=== PATIENT | male | born 1955 | race Caucasian/White ===

== ENCOUNTER 2020-10-16 12:23 | Emergency (ER) | payer MEDICARE, SELFPAY ==
[2020-10-16 12:47] VITALS: BP 155/70; PULSE 87; RESP 20; TEMP 36.3; O2SAT 97
--- NOTE | 2020-10-16 12:57 | ED.SKABFB ---
HPI - Skin/Abscess/Foreign Bdy General Chief complaint: Skin/Abscess/Foreign Body Stated complaint: left cut on ankle Time Seen by Provider: 10/16/20 12:57 Source: patient and RN notes reviewed Mode of arrival: ambulatory Limitations: no limitations History of Present Illness HPI narrative: 65-year-old male presents to [facility] with complaints of a skin tear left medial lower leg since Monday, 2 days ago. Patient reports that his skin constraint itchy and started scratching when he scratched off a piece of skin. Area did not bleed. States he has a history of the skin tears and normally put Silvadene on it. States he was out of Silvadene. [facility] History of a kidney transplant, high blood pressure, diabetes and a pacemaker. Related Data Home Medications Medication Instructions Recorded Confirmed insulin aspart U-100 [Novolog 10/16/20 U-100 Insulin aspart] lisinopril 40 mg PO DAILY 10/16/20 10/16/20 melatonin 10 mg PO HS PRN 10/16/20 10/16/20 metoprolol succinate 25 mg PO DAILY 10/16/20 10/16/20 mycophenolate sodium [Myfortic] PO 10/16/20 omeprazole magnesium [Acid [employer] 20 mg PO DAILY 10/16/20 10/16/20 (omeprazole)] prednisone 5 mg PO DAILY 10/16/20 10/16/20 rivaroxaban [Xarelto] 15 mg PO DAILY 10/16/20 10/16/20 simvastatin [Zocor] 10 mg PO DAILY 10/16/20 10/16/20 sulfamethoxazole-trimethoprim 1 tablet PO Q12H 10/16/20 10/16/20 [Bactrim DS] tacrolimus [Prograf] 1 mg PO Q12H 10/16/20 10/16/20 tamsulosin 0.4 mg PO DAILY 10/16/20 10/16/20 vitamin B complex [B Complex] 1 tablet PO DAILY 10/16/20 10/16/20 Allergies Allergy/AdvReac Type Severity Reaction Status Date / Time morphine Allergy Unknown Itching Verified 04/29/20 09:39 Review of Systems Review of Systems: Narrative: CONSTITUTIONAL: Denies fever, chills, or sweats. EYES: Denies visual changes, redness, or discharge. ENT: Denies rhinorrhea, congestion, sore throat, or otalgia. CARDIOVASCULAR: Denies chest pain, palpitations, or edema. RESPIRATORY: Denies cough or dyspnea. GASTROINTESTINAL: Denies abdominal pain, nausea, vomiting, or diarrhea. GENITOURINARY: Denies dysuria or hematuria. SKIN: Denies rash or itching. Skin tear left lower medial aspect without redness or inflammation MUSCULOSKELETAL: Denies back pain, joint pain, or myalgia. NEUROLOGIC: Denies headache, numbness, or weakness. PSYCHIATRIC: Denies anxiety or depression. All other systems reviewed are negative, except as documented in HPI. 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 There is no relevant family history pertinent to the patient complaint. Exam Narrative: Exam Narrative: GENERAL: This is a well-nourished, well-developed patient, in no apparent distress. HEAD: normocephalic, atraumatic. EYES: PERRL. Sclera clear/white. Vision is grossly intact. NECK: Neck supple, non-tender without lymphadenopathy, masses or thyromegaly. CARDIOVASCULAR: Regular rate and rhythm without murmurs, gallops, or rubs. RESPIRATORY: Clear to auscultation. Breath sounds equal bilaterally. No wheezes, rales, or rhonchi. GASTROINTESTINAL: Abdomen soft, non-tender, nondistended. Bowel sounds are active. No hepato-
[2020-10-16 13:00] VITALS: BP 155/70; PULSE 87; RESP 20; TEMP 36.3; O2SAT 97
== END 2020-10-16 13:36 | disposition home or self-care (01) ==
PROVIDERS: Emergency Provider Nurse Practitioner; PCP Internal Medicine
DX: S81.812A Laceration without foreign body, left lower leg, initial encounter (principal); X58.XXXA Exposure to other specified factors, initial encounter; E10.311 Type 1 diabetes mellitus with unspecified diabetic retinopathy with macular edema; Z94.0 Kidney transplant status
CPT/HCPCS: 99213; G0463

== ENCOUNTER 2025-05-06 16:48 | Observation (INO) | payer MEDICARE, SELFPAY ==
--- OUTSIDE RECORDS SUMMARY | 2024-05-10 05:00 | XMS_ITS | Encounter Summary ---
Author Name [facility] [place] [facility] [place] Address [address] [place] [address] Care Team Providers Care Center Manager Name Role Phone HELEN MATTHEWS Primary Care Provider Unavailabl e Insurance Providers: All historical and current Section Date Range: From patient's date of to the date document was created. This section includes the names of all active insurance providers for the patient. Insurance Provider Type of Coverage Plan Name Start of Policy Coverage End of Policy Coverage Group Number Member ID Insurance Provider's Telephone Number Policy Bullard's Name Patient's Relationship to Policy Bullard MEDICARE (WNR) MEDICARE (M) PART A Feb 09, 2019 PART A [id number] ANA GANNON EPH PATIENT MEDICARE (WNR) MEDICARE (M) PART B Feb 09, 2019 PART B [id number] ANA GANNON EPH PATIENT MEDICARE (WNR) MEDICARE (M) PART A Feb 09, 2019 PART A [id number] ANA GANNON EPH PATIENT MEDICARE (WNR) MEDICARE (M) PART B Feb 09, 2019 PART B [id number] ANA GANNON PATIENT MEDICARE (WNR) MEDICARE (M) PART A Feb 09, 2019 PART A [id number] ANA GANNON PATIENT MEDICARE (WNR) MEDICARE (M) PART B Feb 09, 2019 PART B [id number] [phone] ANA GANNON PATIENT MEDICARE PART D (WNR) MEDICARE (M) PART D Sep 11, 2019 PART D [id number] [phone] ANA GANNON PATIENT Selected Encounter This section includes the information on record at [place] for the Encounter. 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 This section includes future appointments and future orders which are active, pending or scheduled. Future Appointments This section includes appointments that were scheduled to occur 6 months from the date of the Encounter, up to a maximum of 20 appointments. The data comes from all [place] treatment facilities. Appointment Date/Time Appointment Type Appointme nt Facility Name May 21, 2024 10:00 AM AMBULATORY - MEDICINE [facility] Jun 13, 2024 09:00 AM AMBULATORY - MEDICINE [facility] Jun 14, 2024 09:30 AM AMBULATORY - REHAB MEDICIN E [facility] Jun 18, 2024 10:00 AM AMBULATORY - MEDICINE [facility] Jun 27, 2024 02:30 PM AMBULATORY - MEDICINE [facility] Jul 05, 2024 11:15 AM AMBULATORY - MEDICINE . [facility] Jul 18, 2024 09:15 AM AMBULATORY - NONE [facility] Jul 18, 2024 09:45 AM AMBULATORY - MEDICINE [facility] Jul 19, 2024 09:00 AM AMBULATORY - MEDICINE [facility] Aug 21, 2024 09:00 AM AMBULATORY - MEDICINE [facility] Aug 30, 2024 09:00 AM AMBULATORY - MEDICINE [facility] Sep 05, 2024 09:00 AM AMBULATORY - MEDICINE [facility] Sep 10, 2024 11:00 AM AMBULATORY - NONE [facility] Sep 18, 2024 02:00 PM AMBULATORY - MEDICINE [facility] Sep 19, 2024 09:00 AM AMBULATORY - SURGERY [facility] Sep 25, 2024 09:45 AM AMBULATORY - MEDICINE [facility] Oct 03, 2024 09:15 AM AMBULATORY - MEDICINE [facility] Oct 03, 2024 09:30 AM AMBULATORY - MEDICINE [facility] Oct 04, 2024 06:45 [facility] 04, [facility] 07:00 AM AMBULATORY - MEDICINE [facility] Lab Results: +/- 30 days of the encounter This section includes the Chemistry and Hematology Lab Results on record with [place] for the patient. Radiology Reports and Pathology Reports are provided separately, in subsequent sections. Lab Results This section contains the Chemistry/Hematology Results that were resulted 30 days before or 30 daysafter the date of the Encounter. Date/Time Source Result Type Result - Unit Interpretation Reference Range Specimen Type Comment May 22, 2024 08:41 AM [facility] RENAL PANEL PLASMA Specimen Type: PLASMA Comment: No hemolysis noted. Ordering Provider: FRANCISCO DAILY Report Released Date/Time: Sep 01, 2023 11:30 AM Reporting Lab: [facility] [address] [address] Performing Lab: [address] [address] CREATININE 1.88 mg/dL H 0.7-1.3 UREA NITROGEN 33.2 mg/dL H 9.0-25.0 GLUCOSE 114 mg/dL H 72-99 SODIUM 139 meq/L 136-145 POTASSIUM 4.6 meq/L 3.5-5 CHLORIDE 109 meq/L H 98-107 CARBON DIOXIDE 22 meq/L 22-31 CALCIUM 9.5 mg/dL 8.4-10.4 PHOSPHOROUS 3.3 mg/dL 2.3-4.7 ALBUMIN 3.6 g/dL 3.4-5 EGFR (CKD-EPI 2020) 38.0 >60 May 22, 2024 08:41 AM [facility] TACROLIMUS (STL-PB) BLOOD Specimen Type: BLOO D No comment entered. Ordering Provider: FRANCISCO DAILY Report Released Date/Time: Sep 01, 2023 11:30 AM Reporting Lab: [address] [address] Performing Lab: [address] [address] TACROLIMUS (STL-PB) 6.7 ng/mL May 22, 2024 08:41 AM [facility] URINALYSIS (L-PB) URINE Specimen Type: URIN E Comment: High concentrations of glucose and protein affect specific gravity. Therefore, specific gravity is corrected using the concentrations of glucose and protein obtained from test strip measurement. Very high concentrations of glucose (>1000 mg/dL) or protein (>600 mg/dL) in the urine may affect the reliability of the specific gravity results. Clinical correlation is suggested. Ordering Provider: FRANCISCO DAILY Report Released Date/Time: Sep 01, 2023 11:30 AM Reporting Lab: [address] [address] Performing Lab: [address] [address] URINE COLOR Light-Yellow Yellow U.BILIRUBIN Negative mg/dL Negative U.PH 6.0 5.0-8.0 APPEARANCE Clear Clear U.NITRITE Negative mg/dL Negative URN.GLUCOSE > mg/dL H Negative URN.PROTEIN Negative mg/dL Negative-20 URN.UROBILINOGEN Normal mg/dL Normal URN.BLOOD Negative mg/dL Negative-Trace URN.KETONES Trace mg/dL Negative-Trace URN.LEUK.EST. Negative mg/dL Negative-Tr malu URN.SPECIFIC GRAVITY 1.018 1.005-1.029 May 22, 2024 08:41 AM [facility] CBC BLOOD Specimen Type: BLOOD No comment entered. Ordering Provider: FRANCISCO DAILY Report Released Date/Time: Sep 01, 2023 11:30 AM Reporting Lab: [facility] [address] [address] Performing Lab: [address] [address] WBC 6.8 10*3/uL 3.6-11.2 RBC 4.05 10*6/uL L 4.10-5.70 HGB 12.6 g/dL L 13.1-16.8 HCT 36.2 L 38.2-48.4 MCV 89.4 fL 80.0-100.0 MCH 31.1 pg 27.0-34.0 MCHC 34.8 g/dL 33.0-36.0 PLT 171 10*3/uL 150-400 MPV 10.8 fL 7.5-11.2 RDW 12.4 11.8-15.1 LYMPHOCYTES, AUTO % 22 MONOCYTES, AUTO % 11 NEUTROPHILS, AUTO % 60 EOSINOPHILS, AUTO % 7 BASOPHILS, AUTO % 1 LYMPHOCYTES, ABSOLUTE 1.46 10*3/uL 0.77- 4.50 MONOCYTES, ABSOLUTE 0.71 10*3/uL 0.19-0. 80 NEUTROPHILS, ABSOLUTE 4.06 10*3/uL 2.10- 8.00 EOSINOPHILS, ABSOLUTE 0.44 10*3/uL 0.00- 0.60 BASOPHILS, ABSOLUTE 0.05 10*3/uL 0.00-0. 20 Apr 23, 2024 02:04 PM [facility] C DIFF EPI PCR PNL FECES Specimen Type: FECES Comment: Qualitative real-time PCR test for rapid detection of toxin B gene sequences and for presumptive identification of 027/NAP1/BI strains of toxigenic Clostridium difficile. A negative result does not preclude infection with the agent(s) tested and should not be used as the sole basis for treatment or other patient management decisions. If negative, but symptoms persist, consider re-testing. A positive test does not necessarily indicate the presence of viable organisms, or active toxin production. All results must be combined with clinical observations, patient history, and epidemiological information for final interpretation. Ordering Provider: OLVIN JUAREZ Report Released Date/Time: Apr 18, 2024 07:01 AM Reporting Lab: [facility] [address] [address] Performing Lab: [address] [address] C DIFF TOXIN EIA (STL) Test not indicated 027-NAP1-B1 STRAIN OF C.DIFF Presumptive Negativ e Presumptive Negative C DIFF EPI PCR NEGATIVE Negative Apr 18, 2024 09:32 AM [facility] GLUCOSE,BLOOD-poct (STL) BLOOD Specimen Type: BLOOD Comment: Test Performed by: [id number] Meter #: [id number] Ordering Provider: HELEN MATTHEWS Report Released Date/Time: Apr 18, 2024 04:36 PM Reporting Lab: [place] [id number] [facility] [address] Performing Lab: [address] [address] GLUCOSE,BLOOD-poct (STL) 261 mg/dL H 72-99 Apr 12, 2024 08:28 AM [facility] TACROLIMUS (STL-PB) BLOOD Specimen Type: BLOO D No comment entered. Ordering Provider: FRANCISCO DAILY Report Released Date/Time: Sep 01, 2023 11:23 AM Reporting Lab: [facility] [address] [address] Performing Lab: [facility] [address] [place] [phone] TACROLIMUS (STL-PB) 3.4 ng/mL Apr 12, 2024 08:28 AM [facility] RENAL PANEL PLASMA Specimen Type: PLASM A Comment: No hemolysis noted. Ordering Provider: FRANCISCO DAILY Report Released Date/Time: Sep 01, 2023 11:23 AM Reporting Lab: [address] [address] Performing Lab: [address] [address] CREATININE 1.87 mg/dL H 0.7-1.3 UREA NITROGEN 35.4 mg/dL H 9.0-25.0 GLUCOSE 157 mg/dL H 72-99 SODIUM 138 meq/L 136-145 POTASSIUM 4.6 meq/L 3.5-5 CHLORIDE 110 meq/L H 98-107 CARBON DIOXIDE 19 meq/L L 22-31 CALCIUM 8.8 mg/dL 8.4-10.4 PHOSPHOROUS 3.2 mg/dL 2.3-4.7 ALBUMIN 3.4 g/dL 3.4-5 EGFR (CKD-EPI 2020) 38.2 >60 Apr 12, 2024 08:28 AM [facility] URINALYSIS (STL-PB) URINE Specimen Type: URIN E No comment entered. Ordering Provider: FRANCISCO DAILY Report Released Date/Time: Sep 01, 2023 11:23 AM Reporting Lab: [address] [address] Performing Lab: [address] [address] URINE COLOR Light-Yellow Yellow U.BILIRUBIN Negative mg/dL Negative U.PH 6.0 5.0-8.0 APPEARANCE Clear Clear U.NITRITE Negative mg/dL Negative URN.GLUCOSE Normal mg/dL Negative URN.PROTEIN Negative mg/dL Negative-20 URN.UROBILINOGEN Normal mg/dL Normal URN.BLOOD Negative mg/dL Negative-Trace URN.KETONES Negative mg/dL Negative-Trac e URN.LEUK.EST. Negative mg/dL Negative-Tr malu URN.SPECIFIC GRAVITY 1.013 1.005-1.029 Apr 12, 2024 08:[address] [facility] CBC BLOOD Specimen Type: BLOOD No comment entered. Ordering Provider: FRANCISCO DAILY Report Released Date/Time: Sep 01, 2023 11:23 AM Reporting Lab: [facility] [address] [phone] Performing Lab: [facility] [address] [address] WBC 6.1 10*3/uL 3.6-11.2 RBC 4.04 10*6/uL L 4.10-5.70 HGB 12.3 g/dL L 13.1-16.8 HCT 37.2 L 38.2-48.4 MCV 92.1 fL 80.0-100.0 MCH 30.4 pg 27.0-34.0 MCHC 33.1 g/dL 33.0-36.0 PLT 158 10*3/uL 150-400 MPV 10.3 fL 7.5-11.2 RDW 13.1 11.8-15.1 LYMPHOCYTES, AUTO % 20 MONOCYTES, AUTO % 10 NEUTROPHILS, AUTO % 64 EOSINOPHILS, AUTO % 5 BASOPHILS, AUTO % 1 LYMPHOCYTES, ABSOLUTE 1.20 10*3/uL 0.77- 4.50 MONOCYTES, ABSOLUTE 0.59 10*3/uL 0.19-0. 80 NEUTROPHILS, ABSOLUTE 3.90 10*3/uL 2.10- 8.00 EOSINOPHILS, ABSOLUTE 0.33 10*3/uL 0.00- 0.60 BASOPHILS, ABSOLUTE 0.07 10*3/uL 0.00-0. 20 Apr 12, 2024 08:25 AM [facility] PANCREATIC ELASTASE FECES Specimen Type: FECE S Comment: Adult and Pediatric Reference Ranges for Pancreatic Elastase-1: Normal: >200 mcg/g Moderate Pancreatic Insufficiency: 100-200 mcg/g Severe Pancreatic Insufficiency: <100 mcg/g Elastase-1 (E-1) assay results are expressed in mcg/g, which represent mcg E1/g feces. It is not necessary to interrupt enzyme substitution therapy. Test performed by [employer] [id number] [place] [address] Mangle Tender: Lexi Vu MD,PHD,KELLY Test Reported by KaybusJosefina, [facility], [address] [place], [place] Cornelio Castro M.D., Ph.D., Director of Laboratories , [facility] [id number] Ordering Provider: OLVIN JUAREZ Report Released Date/Time: Apr 01, 2024 10:53 AM Reporting Lab: [facility] [address] [place] [address] Performing Lab: [facility] [address] [facility] PANCREATIC ELASTASE 139 L Apr 12, 2024 08:25 AM [facility] LACTOFERRIN,STOOL (STL-MA-PB) FECES Specimen Type: FECES Comment: Teams to Olvin Juarez 04/12/24 @ 1858 Ordering Provider: OLVIN JUAREZ Report Released Date/Time: Apr 01, 2024 10:53 AM Reporting Lab: [facility] [address] [address] Performing Lab: [facility] [address] [place] [address] LACTOFERRIN,STOOL (STL-MA-PB) positive N EGATIVE-POSITIVE Social History: Smoking Status (Most current) and Tobacco Use (All prior to encounter date) This section includes the most current, and the historical, smoking and tobacco- related health factors from the [place] facility where the Encounter took place. Current Smoking Status This section includes the most current smoking, or tobacco-related health factor, from the [place] facility where the Encounter took place. Date/Time Current Smoking Status Comment Jg [email or web address] Nov 22, 2021 10:00 AM [place] NEVER [facility]ED [facility] Tobacco Use History This section includes a history of the smoking, or tobacco-related health factors, that were collected on or before the date of the Encounter. The data comes from the [place] facility where the Encounter took place. Date/Time Smoking Status/Tobacco Use Comment F [email or web address] Sep 26, 2018 08:30 AM [place]AC[place] NEVER USED [facility] Jun 25, 2018 10:53 AM [place]-TOBACCO NEVER USED [facility] Dec 22, 2017 10:58 AM [place]-TOBACCO NEVER USED [facility] Jun 28, 2017 11:04 AM LIFETIME NON-USER OF TOBACCO [facility] Jun 21, 2017 09:54 AM LIFETIME NON-USER OF TOBAC CO non user [facility] May 10, 2017 09:43 AM LIFETIME NON-USER OF TOBAC CO never [facility] Feb 17, 2017 08:27 AM LIFETIME NON-USER OF TOBACCO [facility] January 14, 2016 02:12 PM LIFETIME NON-USER OF TOBACCO [facility] Encounter Notes: All associated encounter notes This section contains the clinical notes associated to the Encounter. Date/Time Encounter Note(s) Provider Source May 10, 2024 10:07 AM PSYCHOLOGY OUTPATI ENT NOTE: LOCAL TITLE: PRIMARY CARE PSYCHOLOGY NOTE [facility] STANDARD TITLE: PSYCHOLOGY OUTPATIENT NOTE DATE OF NOTE: MAY 10, 2024@10:07 ENTRY DATE: MAY 10, 2024@10:07:12 AUTHOR: ANGELI BECERRIL COSIGNER: URGENCY: STATUS: COMPLETED NAME: DAT GANNON DATE OF : Feb TIME SPENT WITH PATIENT: 30 minutes DIAGNOSIS BEING TREATED: Depressive D/O d/t Another Medical Condition, Relationship Distress with Spouse CPT Code: 58326 NATURE OF ENCOUNTER: follow up visit SESSION FORMAT: [X] [id number] [ ] Video Telehealth [ ]Phone Confirmed 's location and phone number for virtual appointment. [ ]Yes [X]N/A SESSION NUMBER: 11 RELEVANT HISTORICAL DEVELOPMENTS SINCE LAST CONTACT: - has reached goal weight of 220 INTERVENTION/TREATMENT PROVIDED [X] [place] [X] Shared decision-making regarding goals of care [X] Supportive Psychotherapy [X] Solution-Focused Psychotherapy [ ] Insight Oriented Psychotherapy [X] Cognitive Behavioral Therapy Skills [ ] Acceptance and Commitment Therapy Skills [ ] Interpersonal Therapy Skills [ ] Motivational Interviewing [ ] Culture-based Interventions [ ] Health Psychology Interventions [ ] Evidence Based Psychotherapy: [ ] Psychosocial Interventions [ ] Other: Description of Interventions Provided by Therapist: - Assessed sxs and fx'ing. Further decrease in anxiety/concerns r/t medical conditions, mood sxs remain elevated but appear stable. Discussed increased anergia in more detail. [place] attributes increase to decreased engagement in physical activity s/t graduating from physical therapy. Notes has resumed use of his rowing machine a few days ago. Is beginning to notice improvement in energy level. Continued assisting with processing related thoughts and feelings r/t medical conditions. Continued providing with empathetic and supportive listening and appropriate validation. - Continued discussing discord within marital relationship. Continued assisting with processing related thoughts and feelings and assisting with challenging identified distorted cognitions. Continued providing with empathetic and supportive listening and appropriate validation. Reviewed communication strategies and encouraged ongoing use. - Reviewed stress/anxiety management strategies. - Reviewed mood management strategies. Reviewed importance of self-care and discussed strategies to assist with engagement. ASSESSMENT MEASURES USED: Self-Report Questionnaires: See Mental Health Diagnostic Study dated today, May 04, for details regarding endorsements for specific sxs. PHQ-9 = 10 (Q#9=0); indicative of depressive sxs being reported in the Moderate range. Score = 10 (Q#9=0; Moderate range) when administered on February 01. BARRIE-7 = 4; indicative of anxiety sxs being reported in the Minimal/Non-Clinical range. Score = 11 (Moderate range) when administered on February 01. ROS: Sleep: ongoing Initial and Middle Insomnia Interest: remains improved, continues to experience intermittent anhedonia Guilt: Continues to endorse occasional experience Energy: increased anergia Concentration: remains decreased at times Appetite: Remains WNL Psychomotor: WNL upon observation, continues to report feeling sluggish at times Collaboratively discussed outcomes related to assessment and treatment progress and measures will continue to be monitored. MEASURABLE TREATMENT GOALS FOR THIS EPISODE OF CARE: Goals were developed with using shared decision making 1. GOAL/OBJECTIVES: improve mood state PROGRESS TOWARDS GOAL: mood sxs remain elevated, but appear stable 2. GOAL/OBJECTIVES: increase physical fx'ing PROGRESS TOWARDS GOAL: reports increased anergia and muscle soreness s/t decreased engagement in physical activity, has resumed rowing in response RESPONSE TO INTERVENTIONS: Veterans participation/engagement: [X]The participated actively in the current interventions. [ ]Other: The [place] continues to consent to the current plan of care: Yes Comments: RISK ASSESSMENT: [X] NO CHANGES IN RISK FACTORS Related to Suicide or Homicide. did not report any current suicidal/homicidal ideation, plan, or intent. did not appear to be at imminent risk for suicide or homicide at this time and is considered sustainable at the current level of care. -CLINICAL JUDGMENT AND DISPOSITION: [X] In consideration of relevant risk and protective factors, the did NOT appear to be at imminent risk for suicide or homicide at this time and IS sustainable at the current level of care. -Comments: was asked directly and denied SI/HI, to include any current or recent active or passive ideation. Specifically, denied any current or recent thoughts, feelings, urges, or desires for self-harm, as well as any engagement in planning, preparatory bxs, gestures, or attempts. ASSIGNED WORK: 1. Continue to utilize recommended mood management strategies. 2. Continue to utilize recommended activity pacing guidelines and breathing strategies. 3. Continue to utilize recommended anxiety management strategies. 4. Continue to utilize communication strategies as needed. COLLABORATIVE RECOMMENDATIONS/PLAN: Collaboratively discussed outcomes related to assessment and treatment progress. Based on this discussion: [X] No changes to plan of care. [place] expressed agreement with therapy tasks and [id number] plan. RTC placed for f/u appt. /es/ ANGELI BECERRIL, PH.D. Clinical Psychologist; [facility] Signed: 05/10/2024 10:49 ANGELI BECERRIL [facility]
--- OUTSIDE RECORDS SUMMARY | 2024-05-10 08:58 | XMS_ITS ---
Author Name [facility] [place] Address [address] [place] [address] Care Team Providers Care E Commerce Merchant Name Role Phone HELEN MATTHEWS Primary Care Provider Unavailbria e Insurance Providers: All historical and current [...] PART A Feb 09, 2019 PART A [id number] ANA GANNON EPH PATIENT MEDICARE (WNR) MEDICARE (M) PART B Feb 09, 2019 PART B [id number] ANA GANNON EPH PATIENT MEDICARE (WNR) MEDICARE (M) PART A Feb 09, 2019 PART A [id number] ANA GANNON EPH PATIENT MEDICARE (WNR) MEDICARE (M) PART B Feb 09, 2019 PART B [id number] ANA GANNON PATIENT MEDICARE (WNR) MEDICARE (M) PART A Feb 09, 2019 PART A [id number] [phone] ANA GANNON EPH PATIENT MEDICARE (WNR) MEDICARE (M) PART B Feb 09, 2019 PART B [id number] ANA GANNON PATIENT MEDICARE PART D (WNR) MEDICARE (M) PART D Sep 11, 2019 PART D [id number] ANA GANNON PATIENT Selected Encounter This section includes the information on record at [place] for the Encounter. Date/Time Encounter Type Encounter Description Reason Pro vider Source May 10, 2024 01:58 PM Outpatient Encounter GENERAL INTERNAL MEDICINE IHE Encounter Template Text not used by [place] Plan of Treatment: Future Appointments (+ 6 months) and Future Tests (+/- 45 days) The Plan of Treatment section includes future care activities for the patient from all [place] treatmentfacilities. This section includes future appointments and future orders which are active, pending or scheduled. Future Appointments This section includes appointments that were scheduled to occur 6 months from the date of the Encounter, up to a maximum of 20 appointments. The data comes from all [place] treatment facilities. Appointment Date/Time Appointment Type Appointme nt Facility Name May 21, 2024 10:00 AM AMBULATORY - MEDICINE [facility] Jun 13, 2024 09:00 AM AMBULATORY - MEDICINE [facility] Jun 14, 2024 09:30 AM AMBULATORY - REHAB MEDICIN E [facility] Jun 18, 2024 10:00 AM AMBULATORY - MEDICINE . [facility] Jun 27, 2024 02:30 PM AMBULATORY - MEDICINE [facility] Jul 05, 2024 11:15 AM AMBULATORY - MEDICINE [facility] Jul 18, 2024 09:15 AM AMBULATORY - NONE [facility] Jul 18, 2024 09:45 AM AMBULATORY - MEDICINE [facility] Jul 19, 2024 09:00 AM AMBULATORY - MEDICINE [facility] Aug 21, 2024 09:00 AM AMBULATORY - MEDICINE [facility] Aug 30, 2024 09:00 AM AMBULATORY - MEDICINE [facility] Sep 05, 2024 09:00 AM AMBULATORY - MEDICINE . [facility] Sep 10, 2024 11:00 AM AMBULATORY - NONE [facility] Sep 18, 2024 02:00 PM AMBULATORY - MEDICINE . [facility] Sep 19, 2024 09:00 AM AMBULATORY - SURGERY [facility] Sep 25, 2024 09:45 AM AMBULATORY - MEDICINE [facility] Oct 03, 2024 09:15 AM AMBULATORY - MEDICINE [facility] Oct 03, 2024 09:30 AM AMBULATORY - MEDICINE [facility] Oct 04, 2024 06:45 AM AMBULATORY - NONE [facility] Oct 04, 2024 07:00 AM AMBULATORY - MEDICINE [facility] Lab Results: +/- 30 days of the encounter This section includes the Chemistry and Hematology Lab Results on record with [place] for the patient. Radiology Reports and Pathology Reports are provided separately, in subsequent sections. Lab Results This section contains the Chemistry/Hematology Results that were resulted 30 days before or 30 daysafter the date of the Encounter. Date/Time Source Result Type Result - Unit Interpretation Reference Range Specimen Type Comment May 22, 2024 08:41 AM [facility] TACROLIMUS (STL-PB) BLOOD Specimen Type: BLOOD No comment entered. Ordering Provider: FRANCISCO DAILY Report Released Date/Time: Sep 01, 2023 11:30 AM Reporting Lab: [facility] [address] [facility] [facility] [address] Performing Lab: [facility] [address] [address] TACROLIMUS (STL-PB) 6.7 ng/mL May 22, 2024 08:41 AM [facility] RENAL PANEL PLASMA Specimen Type: PLASM A Comment: No hemolysis noted. Ordering Provider: FRANCISCO DAILY Report Released Date/Time: Sep 01, 2023 11:30 AM Reporting Lab: [facility] [address] [address] Performing Lab: [address] [address] CREATININE 1.88 mg/dL H 0.7-1.3 UREA NITROGEN 33.2 mg/dL H 9.0-25.0 GLUCOSE 114 mg/dL H 72-99 SODIUM 139 meq/L 136-145 POTASSIUM 4.6 meq/L 3.5-5 CHLORIDE 109 meq/L H 98-107 CARBON DIOXIDE 22 meq/L 22-31 CALCIUM 9.5 mg/dL 8.4-10.4 PHOSPHOROUS 3.3 mg/dL 2.3-4.7 ALBUMIN 3.6 g/dL 3.4-5 EGFR (CKD-EPI 2020) 38.0 >60 May 22, 2024 08:41 AM [facility] URINALYSIS (STL-PB) URINE Specimen Type: URIN E Comment: High [...] Sep 01, 2023 11:30 AM Reporting Lab: [address] [address] Performing Lab: [address] [address] URINE COLOR Light-Yellow Yellow U.BILIRUBIN Negative mg/dL Negative U.PH 6.0 5.0-8.0 APPEARANCE Clear Clear U.NITRITE Negative mg/dL Negative URN.GLUCOSE > mg/dL H Negative URN.PROTEIN Negative mg/dL Negative-20 URN.UROBILINOGEN Normal mg/dL Normal URN.BLOOD Negative mg/dL Negative-Trace URN.KETONES Trace mg/dL Negative-Trace URN.LEUK.EST. Negative mg/dL Negative-Tr malu URN.SPECIFIC GRAVITY 1.018 1.005-1.029 May 22, 2024 08:41 AM [facility] CBC BLOOD Specimen Type: BLOOD No comment entered. Ordering Provider: FRANCISCO DAILY Report Released Date/Time: Sep 01, 2023 11:30 AM Reporting Lab: [facility] [address] [address] Performing Lab: [facility] [address] [address] WBC 6.8 10*3/uL 3.6-11.2 RBC 4.05 10*6/uL [...] 0.00-0. 20 Apr 23, 2024 02:04 PM [facility] C DIFF EPI PCR PNL FECES Specimen [...] Apr 18, 2024 07:01 AM Reporting Lab: [facility] [address] [facility] [address] Performing Lab: [facility] [address] [place] [address] C DIFF TOXIN EIA (STL) Test not indicated [id number]-NAP1-B1 STRAIN OF C.DIFF Presumptive Negativ e Presumptive Negative C DIFF EPI PCR NEGATIVE Negative Apr 18, 2024 09:32 AM [facility] GLUCOSE,BLOOD-poct (STL) BLOOD Specimen Type: BLOOD Comment: Test Performed by: [id number] Meter #: [id number] Ordering Provider: HELEN MATTHEWS Report Released Date/Time: Apr 18, 2024 04:36 PM Reporting Lab: [address] [address] Performing Lab: [address] [address] GLUCOSE,BLOOD-poct (STL) 261 mg/dL H 72-99 Apr 12, 2024 08:28 AM [facility] TACROLIMUS (STL-PB) BLOOD Specimen Type: BLOO D No comment entered. Ordering Provider: FRANCISCO DAILY Report Released Date/Time: Sep 01, 2023 11:23 AM Reporting Lab: [address] [address] Performing Lab: [address] [address] TACROLIMUS (STL-PB) 3.4 ng/mL Apr 12, 2024 08:28 AM [facility] URINALYSIS (L-PB) URINE Specimen Type: URIN E No comment entered. Ordering Provider: FRANCISCO DAILY Report Released Date/Time: Sep 01, 2023 11:23 AM Reporting Lab: [facility] [address] [place] [address] Performing Lab: [address] [address] URINE COLOR Light-Yellow Yellow U.BILIRUBIN Negative mg/dL Negative U.PH 6.0 5.0-8.0 APPEARANCE Clear Clear U.NITRITE Negative mg/dL Negative URN.GLUCOSE Normal mg/dL Negative URN.PROTEIN Negative mg/dL Negative-20 URN.UROBILINOGEN Normal mg/dL Normal URN.BLOOD Negative mg/dL Negative-Trace URN.KETONES Negative mg/dL Negative-Trac e URN.LEUK.EST. Negative mg/dL Negative-Tr malu URN.SPECIFIC GRAVITY 1.013 1.005-1.029 Apr 12, 2024 08:28 AM [facility] RENAL PANEL PLASMA Specimen Type: PLASM A Comment: No hemolysis noted. Ordering Provider: FRANCISCO DAILY Report Released Date/Time: Sep 01, 2023 11:23 AM Reporting Lab: [address] [address] Performing Lab: [address] [address] CREATININE 1.87 mg/dL H 0.7-1.3 UREA NITROGEN 35.4 mg/dL H 9.0-25.0 GLUCOSE 157 mg/dL H 72-99 SODIUM 138 meq/L 136-145 POTASSIUM 4.6 meq/L 3.5-5 CHLORIDE 110 meq/L H 98-107 CARBON DIOXIDE 19 meq/L L 22-31 CALCIUM 8.8 mg/dL 8.4-10.4 PHOSPHOROUS 3.2 mg/dL 2.3-4.7 ALBUMIN 3.4 g/dL 3.4-5 EGFR (CKD-EPI 2020) 38.2 >60 Apr 12, 2024 08:28 AM [facility] CBC BLOOD Specimen Type: BLOOD No comment entered. Ordering Provider: FRANCISOC DAILY Report Released Date/Time: Sep 01, 2023 11:23 AM Reporting Lab: [address] [address] Performing Lab: [address] [address] WBC 6.1 10*3/uL 3.6-11.2 RBC 4.04 10*6/uL [...] 0.00-0. 20 Apr 12, 2024 08:25 AM [facility] PANCREATIC ELASTASE FECES Specimen Type: ANA S Comment: Adult and Pediatric Reference Ranges for Pancreatic Elastase-1: Normal: >200 mcg/g Moderate Pancreatic Insufficiency: 100-200 mcg/g Severe Pancreatic Insufficiency: <100 mcg/g Elastase-1 (E-1) assay results are expressed in mcg/g, which represent mcg E1/g feces. It is not necessary to interrupt enzyme substitution therapy. Test performed by [employer] [facility] [id number] [place] [id number] Material Control Manager: Lexi Vu MD,PHD,KELLY Test Reported by [employer] [place], [employer] [facility], [id number] [place], [place] Cornelio Castro M.D., Ph.D., Director of Laboratories , [facility] [id number] Ordering Provider: OLVIN JUAREZ Report Released Date/Time: Apr 01, 2024 10:53 AM Reporting Lab: [facility] [address] [facility] [address] Performing Lab: [facility] [address] [facility] PANCREATIC ELASTASE 139 L Apr 12, 2024 08:25 AM [facility] LACTOFERRIN,STOOL (STL-MA-PB) FECES Specimen Type: FECES Comment: Teams to Olvin Juarez 04/12/24 @ 1858 Ordering Provider: OLVIN JUAREZ Report Released Date/Time: Apr 01, 2024 10:53 AM Reporting Lab: [facility] [address] [facility] [address] Performing Lab: [facility] [address] [facility] [address] LACTOFERRIN,STOOL (STL-MA-PB) positive N EGATIVE-POSITIVE Social History: Smoking Status (Most current) and Tobacco Use (All prior to encounter date) This section includes the most current, and the historical, smoking and tobacco- related health factors from the [place] facility where the Encounter took place. Current Smoking Status This section includes the most current smoking, or tobacco-related health factor, from the [place] facility where the Encounter took place. Date/Time Current Smoking Status Comment Jg crowe Apr 12, 2024 02:09 PM [place] NEVER USED [facility] Tobacco Use History This section includes a history of the smoking, or tobacco-related health factors, that were collected on or before the date of the Encounter. The data comes from the [place] facility where the Encounter took place. Date/Time Smoking Status/Tobacco Use Comment F acility Nov 07, 2022 01:35 PM [place]TO[place] NEVER USED [facility] Mar 17, 2021 07:44 PM [facility] ADMIT TOBACCO SCREEN NO [facility] Dec 18, 2020 11:14 PM [place] NEVER USED [facility] Dec 18, 2020 08:23 PM [facility]YX ADMIT TOBACCO SCREEN NO [facility] Nov 14, 2006 01:52 PM LIFETIME NON-USER OF TOBACCO [facility] Nov 22, 2005 02:20 PM LIFETIME NON-TOBACCO USER [facility] Dec 08, 2004 01:37 PM LIFETIME NON-TOBACCO USER [facility] Jul 28, 2004 01:13 PM LIFETIME NON-TOBACCO USER [facility] Jul 09, 2003 01:05 PM LIFETIME NON-TOBACCO USER [facility] Jun 26, 2002 02:05 PM LIFETIME NON-TOBACCO USER [facility] May 23, 2001 01:12 PM LIFETIME NON-TOBACCO USER [facility] Jun 14, 2000 01:24 PM LIFETIME NON-TOBACCO USER [facility] Encounter Notes: All associated encounter notes This section contains the clinical notes associated to the Encounter. Date/Time Encounter Note(s) Provider Source May 10, 2024 01:58 PM NONVA NOTE: [facility] TITLE: COMMUNITY CARE-CARE COORDINATION PLAN NOTE [address] TITLE: NONVA NOTE DATE OF NOTE: MAY 10, 2024@13:58 ENTRY DATE: MAY 10, 2024@13:58:59 AUTHOR: WAQAS SHELLEY EXP COSIGNER: URGENCY: STATUS: COMPLETED Receive notification that /charly/ WAQAS WYNNE RN REGISTERED NURSE Signed: 05/10/2024 14:07 WAQAS SHELLEY [facility]
--- OUTSIDE RECORDS SUMMARY | 2024-05-21 07:36 | XMS_ITS | Encounter Summary ---
Author Name [facility] [place] [facility] [place] Address [address] [place] [address] Care Team Providers Care Comic Book Artist Name Role Phone HELEN MATTHEWS Primary Care [...] PART A Feb 09, 2019 PART A [id number] ANA GANNON EPH PATIENT MEDICARE (WNR) MEDICARE (M) PART B Feb 09, 2019 PART B [id number] ANA GANNON EPH PATIENT MEDICARE (WNR) MEDICARE (M) PART A Feb 09, 2019 PART A [id number] [phone] ANA GANNON EPH PATIENT MEDICARE (WNR) MEDICARE (M) PART B Feb 09, 2019 PART B [id number] ANA GANNON PATIENT MEDICARE (WNR) MEDICARE (M) PART B Feb 09, 2019 PART B [id number] ANA GANNON EPH PATIENT MEDICARE (WNR) MEDICARE (M) PART A Feb 09, 2019 PART A [id number] ANA GANNON PATIENT MEDICARE PART D (WNR) MEDICARE (M) PART D Sep 11, 2019 PART D [id number] ANA GANNON PATIENT Selected Encounter This section includes the information on record at [place] for the Encounter. Date/Time Encounter Type Encounter Description Reason Provider Source May 21, 2024 12:36 PM POS [employer] CPAP SLEEP MEDICINE ICD-10-CM G47.39 Other sleep apnea LOOK,KIRSTEN C IHE Encounter Template Text not used by [place] Assessments - Encounter Diagnoses This section includes the primary and secondary diagnoses documented for the Encounter. Date/Time Primary/Secondary Diagnosis Diagnosis Name Provider Source May 21, 2024 01:00 PM PRIMARY Other sleep apnea MAXIMILIAN MA [facility] Plan of Treatment: Future Appointments (+ 6 months) and Future Tests (+/- 45 days) The Plan of Treatment section includes future care activities for the patient from all [place] treatmentfacilities. This section includes future appointments and future orders which are active, pending or scheduled. Future Appointments This section includes appointments that were scheduled to occur 6 months from the date of the Encounter, up to a maximum of 20 appointments. The data comes from all [place] treatment facilities. Appointment Date/Time Appointment Type Appointme nt Facility Name Jun 13, 2024 09:00 AM AMBULATORY - MEDICINE [facility] Jun 14, 2024 09:30 AM AMBULATORY - REHAB MEDICIN E [facility] Jun 18, 2024 10:00 AM AMBULATORY - MEDICINE [facility] Jun 27, 2024 02:30 PM AMBULATORY - MEDICINE [facility] Jul 05, 2024 11:15 AM AMBULATORY - MEDICINE [facility] Jul 18, 2024 09:15 AM AMBULATORY - NONE [facility] Jul 18, 2024 09:45 AM AMBULATORY - MEDICINE . [facility] Jul 19, 2024 09:00 AM AMBULATORY - MEDICINE . [facility] Aug 21, 2024 09:00 AM AMBULATORY - MEDICINE [facility] Aug 30, 2024 09:00 AM AMBULATORY - MEDICINE [facility] Sep 05, 2024 09:00 AM AMBULATORY - MEDICINE [facility] Sep 10, 2024 11:00 AM AMBULATORY - NONE . [facility] Sep 18, 2024 02:00 PM AMBULATORY - MEDICINE [facility] Sep 19, 2024 09:00 AM AMBULATORY - SURGERY [facility] Sep 25, 2024 09:45 AM AMBULATORY - MEDICINE [facility] Oct 03, 2024 09:15 AM AMBULATORY - MEDICINE [facility] Oct 03, 2024 09:30 AM AMBULATORY - MEDICINE [facility] Oct 04, 2024 06:45 AM AMBULATORY - NONE [facility] Oct 04, 2024 07:00 AM AMBULATORY - MEDICINE [facility] Oct 08, 2024 02:20 PM AMBULATORY - MEDICINE [facility] Lab Results: +/- 30 days of the encounter This section includes the Chemistry and Hematology Lab Results on record with [place] for the patient. Radiology Reports and Pathology Reports are provided separately, in subsequent sections. Lab Results This section contains the Chemistry/Hematology Results that were resulted 30 days before or 30 daysafter the date of the Encounter. Date/Time Source Result Type Result - Unit Interpretation Reference Range Specimen Type Comment May 22, 2024 08:41 AM [facility] RENAL PANEL PLASMA Specimen Type: PLASMA Comment: No hemolysis noted. Ordering Provider: FRANCISCO DAILY Report Released Date/Time: Sep 01, 2023 11:30 AM Reporting Lab: [facility] [address] [facility] [address] Performing Lab: [address] [address] CREATININE 1.88 mg/dL H 0.7-1.3 UREA NITROGEN 33.2 mg/dL H 9.0-25.0 GLUCOSE 114 mg/dL H 72-99 SODIUM 139 meq/L 136-145 POTASSIUM 4.6 meq/L 3.5-5 CHLORIDE 109 meq/L H 98-107 CARBON DIOXIDE 22 meq/L 22-31 CALCIUM 9.5 mg/dL 8.4-10.4 PHOSPHOROUS 3.3 mg/dL 2.3-4.7 ALBUMIN 3.6 g/dL 3.4-5 EGFR (CKD-EPI 2020) 38.0 >60 May 22, 2024 08:41 AM [facility] TACROLIMUS (STL-PB) BLOOD Specimen Type: BLOO D No comment entered. Ordering Provider: FRANCISCO DAILY Report Released Date/Time: Sep 01, 2023 11:30 AM Reporting Lab: [address] [address] Performing Lab: [address] [address] TACROLIMUS (STL-PB) 6.7 ng/mL May 22, 2024 08:41 AM [facility] CBC BLOOD Specimen Type: BLOOD No comment entered. Ordering Provider: FRANCISCO DAILY Report Released Date/Time: Sep 01, 2023 11:30 AM Reporting Lab: [address] [address] Performing Lab: [address] [address] WBC 6.8 10*3/uL 3.6-11.2 RBC 4.05 10*6/uL [...] 0.60 BASOPHILS, ABSOLUTE 0.05 10*3/uL 0.00-0. 20 May 22, 2024 08:41 AM [facility] URINALYSIS (STL-PB) URINE Specimen Type: URIN E [...] Sep 01, 2023 11:30 AM Reporting Lab: [place] [address] [address] [facility] [address] Performing Lab: [address] [address] URINE COLOR Light-Yellow Yellow U.BILIRUBIN Negative mg/dL Negative U.PH 6.0 5.0-8.0 APPEARANCE Clear Clear U.NITRITE Negative mg/dL Negative URN.GLUCOSE > mg/dL H Negative URN.PROTEIN Negative mg/dL Negative-20 URN.UROBILINOGEN Normal mg/dL Normal URN.BLOOD Negative mg/dL Negative-Trace URN.KETONES Trace mg/dL Negative-Trace URN.LEUK.EST. Negative mg/dL Negative-Tr malu URN.SPECIFIC GRAVITY 1.018 1.005-1.029 Apr 23, 2024 02:04 PM [facility] C DIFF EPI PCR PNL FECES Specimen [...] information for final interpretation. Ordering Provider: OLVIN MOORE Report Released Date/Time: Apr 18, 2024 07:01 AM Reporting Lab: [facility] [address] [facility] [address] Performing Lab: [facility] [address] [facility] [address] C DIFF TOXIN EIA (STL) Test not indicated 027-NAP1-B1 STRAIN OF C.DIFF Presumptive Negativ e Presumptive Negative C DIFF EPI PCR NEGATIVE Negative Social History: Smoking Status (Most current) and Tobacco Use (All prior to encounter date) This section includes the most current, and the historical, smoking and tobacco- related health factors from the [place] facility where the Encounter took place. Current Smoking Status This section includes the most current smoking, or tobacco-related health factor, from the [place] facility where the Encounter took place. Date/Time Current Smoking Status Comment Jg crowe Apr 12, 2024 02:09 PM [place] NEVER USED [facility] Tobacco Use History This section includes a history of the smoking, or tobacco-related health factors, that were collected on or before the date of the Encounter. The data comes from the [place] facility where the Encounter took place. Date/Time Smoking Status/Tobacco Use Comment F acgianfranco Nov 07, 2022 01:35 PM [place]-TOBACCO NEVER USED [facility] Mar 17, 2021 07:44 PM ORYX ADMIT TOBACCO SCREEN NO [facility] Dec 18, 2020 11:14 PM [place]-TOBACCO NEVER USED [facility] Dec 18, 2020 08:23 PM ORYX ADMIT TOBACCO SCREEN NO [facility] Nov 14, 2006 01:52 PM LIFETIME NON-USER OF TOBACCO [facility] Nov 22, 2005 02:20 PM LIFETIME NON-TOBACCO USER [facility] Dec 08, 2004 01:37 PM LIFETIME NON-TOBACCO USER [facility] Jul 28, 2004 01:13 PM LIFETIME NON-TOBACCO USER [facility] Jul 09, 2003 01:05 PM LIFETIME NON-TOBACCO USER [facility] Jun 26, 2002 02:05 PM LIFETIME NON-TOBACCO USER [facility] May 23, 2001 01:12 PM LIFETIME NON-TOBACCO USER [facility] Jun 14, 2000 01:24 PM LIFETIME NON-TOBACCO USER [facility] Encounter Notes: All associated encounter notes This section contains the clinical notes associated to the Encounter. Date/Time Encounter Note(s) Provider Source May 21, 2024 12:37 PM RESPIRATORY THERAP Y NOTE: LOCAL TITLE: RESPIRATORY THERAPY ST STANDARD TITLE: RESPIRATORY THERAPY NOTE DATE OF NOTE: MAY 21, 2024@12:37 ENTRY DATE: MAY 21, 2024@12:44:38 AUTHOR: MAXIMILIAN MA EXP COSIGNER: URGENCY: STATUS: COMPLETED PSG reviewed in [place]. Per recommendation, CPAP @ 8cmH20, mask and supplies ordered through [facility]. Machine [facility] supplies [facility]. If [place] has questions regarding CPAP, please call ext. [phone]. /charly/ MAXIMILIAN MA Respiratory Cutter In Signed: 05/21/2024 13:00 MAXIMILIAN MA [facility]
--- OUTSIDE RECORDS SUMMARY | 2024-06-13 04:00 | XMS_ITS | Encounter Summary ---
Author Name [facility] [place] [facility] [place] Address [address] [place] [address] Care Team Providers Care Porter Baggage Name Role Phone MCKENNA MATTHEWS Primary Care Provider Unavailabl e Insurance [...] PART A Feb 09, 2019 PART A [id number] ANA GANNON EPH PATIENT MEDICARE (WNR) MEDICARE (M) PART B Feb 09, 2019 PART B [id number] ANA GANNON EPH PATIENT MEDICARE (WNR) MEDICARE (M) PART A Feb 09, 2019 PART A [id number] [phone] ANA GANNON EPH PATIENT MEDICARE (WNR) MEDICARE (M) PART B Feb 09, 2019 PART B [id number] ANA GANNON EPH PATIENT MEDICARE (WNR) MEDICARE (M) PART A Feb 09, 2019 PART A [id number] ANA GANNON EPH PATIENT MEDICARE (WNR) MEDICARE (M) PART B Feb 09, 2019 PART B [id number] [phone] ANA GANNON EPH PATIENT MEDICARE PART D (WNR) MEDICARE (M) PART D Sep 11, 2019 PART D [id number] ANA GANNON PATIENT Selected Encounter This section includes the information on record at [place] for the Encounter. Date/Time Encounter Type Encounter Description Reason Provider Source Jun 13, 2024 09:00 AM OFFICE O/P EST HI 40 MIN ENDOCRINOLOGY ICD-10-CM E10.8 Type 1 diabetes mellitus with unspecified complications RODNEY CHAN Suzette Encounter Template Text not used by [place] Assessments - Encounter Diagnoses This section includes the primary and secondary diagnoses documented for the Encounter. Date/Time Primary/Secondary Diagnosis Diagnosis Name Provider Source Jun 13, 2024 09:43 AM PRIMARY Type 1 diabetes mellitus with unspecified complications RODNEY CHAN [facility] Jun 13, 2024 09:43 AM SECONDARY Atherosclerosis of CABG w/o angina pectoris [facility] Jun 13, 2024 09:43 AM SECONDARY Diabetes due to undrl cond w diabetic chronic kidney [facility] Jun 13, 2024 09:43 AM SECONDARY Disorder of bone density and structure, unspecified [facility] Jun 13, 2024 09:43 AM SECONDARY Hyp chr kidney disease w stage 5 chr kidney disease or ESRD [facility] Jun 13, 2024 09:43 AM SECONDARY Presence of insulin pump (external) (internal) [facility] Jun 13, 2024 09:43 AM SECONDARY Type 1 diabetes mellitus with diabetic nephropathy [facility] Plan of Treatment: Future Appointments (+ 6 months) and Future Tests (+/- 45 days) The Plan of Treatment section includes future care activities for the patient from [facility] [place] [facility]. This section includes future appointments and future orders which are active, pending or scheduled. Future Appointments This section includes appointments that were scheduled to occur 6 months from the date of the Encounter, up to a maximum of 20 appointments. The data comes from all [facility]. Appointment Date/Time Appointment Type Appointme nt Facility Name Jun 14, 2024 09:30 AM AMBULATORY - REHAB MEDICIN E [facility] Jun 18, 2024 10:00 AM AMBULATORY - MEDICINE [facility] Jun 27, 2024 02:30 PM AMBULATORY - MEDICINE [facility] Jul 05, 2024 11:15 AM AMBULATORY - MEDICINE [facility] Jul 18, 2024 09:15 AM AMBULATORY - NONE [facility] Jul 18, 2024 09:45 AM AMBULATORY - MEDICINE [facility] Jul 19, 2024 09:00 AM [facility] Aug 21, 2024 09:00 AM AMBULATORY - MEDICINE [facility] Aug 30, 2024 09:00 AM AMBULATORY - MEDICINE [facility] Sep 05, 2024 09:00 AM AMBULATORY - MEDICINE [facility] Sep 10, 2024 11:00 AM AMBULATORY - NONE [facility] Sep 18, 2024 02:00 PM AMBULATORY - MEDICINE [facility] Sep 19, 2024 09:00 AM AMBULATORY - SURGERY [facility] Sep 25, 2024 09:45 AM AMBULATORY - MEDICINE [facility] Oct 03, 2024 09:15 AM AMBULATORY - MEDICINE [facility] Oct 03, 2024 09:30 AM AMBULATORY - MEDICINE [facility] Oct 04, 2024 06:45 AM AMBULATORY - NONE [facility] Oct 04, 2024 07:00 AM AMBULATORY - MEDICINE [facility] Oct 08, 2024 02:20 PM AMBULATORY - MEDICINE [facility] Nov 18, 2024 10:00 AM AMBULATORY - REHAB MEDICIN E [facility] Lab Results: +/- 30 days of the encounter This section includes the Chemistry and Hematology Lab Results on record with [facility] for the [facility]. Radiology Reports and Pathology Reports are provided separately, in subsequent sections. Lab Results This section contains the Chemistry/Hematology Results that were resulted 30 days before or 30 daysafter the date of the Encounter. Date/Time Source Result Type Result - Unit Interpretation Reference Range Specimen Type Comment Jun 21, 2024 08:53 AM [facility] HGA1C BLOOD Specimen Type: BLOOD No comment entered. Ordering Provider: FRANCISCO WINTERS Report Released Date/Time: Sep 01, 2023 11:30 AM Reporting Lab: [address] [address] Performing Lab: [address] [address] HGA1C 8.0 H 4.0-6.0 Jun 21, 2024 08:53 AM [facility] TACROLIMUS (STL-PB) BLOOD Specimen Type: BLOO D No comment entered. Ordering Provider: FRANCISCO WINTERS Report Released Date/Time: Sep 01, 2023 11:30 AM Reporting Lab: [address] [address] Performing Lab: [address] [address] TACROLIMUS (STL-PB) 6.7 ng/mL Jun 21, 2024 08:53 AM [facility] RENAL PANEL PLASMA Specimen Type: PLASM A Comment: No hemolysis noted. Ordering Provider: FRANCISCO WINTERS Report Released Date/Time: Sep 01, 2023 11:30 AM Reporting Lab: [address] [address] Performing Lab: [address] [address] CREATININE 1.95 mg/dL H 0.7-1.3 UREA NITROGEN 33.2 mg/dL H 9.0-25.0 GLUCOSE 136 mg/dL H 72-99 SODIUM 137 meq/L 136-145 POTASSIUM 4.8 meq/L 3.5-5 CHLORIDE 110 meq/L H 98-107 CARBON DIOXIDE 18 meq/L L 22-31 CALCIUM 9.3 mg/dL 8.4-10.4 PHOSPHOROUS 3.5 mg/dL 2.3-4.7 ALBUMIN 3.7 g/dL 3.4-5 EGFR (CKD-EPI 2020) 36.3 >60 Jun 21, 2024 08:53 AM [facility] URINALYSIS (STL-PB) URINE Specimen Type: URIN E No comment entered. Ordering Provider: FRANCISCO WINTERS Report Released Date/Time: Sep 01, 2023 11:30 AM Reporting Lab: [address] [address] Performing Lab: [address] [address] URINE COLOR Light-Yellow Yellow U.BILIRUBIN Negative mg/dL Negative U.PH 6.0 5.0-8.0 URINE WBC/HPF <1 /[HPF] 0-5 URINE RBC/HPF 1 /[HPF] 0-5 APPEARANCE Clear Clear U.NITRITE Negative mg/dL Negative BACTERIA RARE /[HPF] Negative MUCUS RARE /[LPF] Negative-Rare URN.GLUCOSE 500 mg/dL H Negative URN.PROTEIN 20 mg/dL H URN.UROBILINOGEN Normal mg/dL Normal URN.BLOOD Negative mg/dL Negative-Trace URN.KETONES Negative mg/dL Negative-Trac e URN.LEUK.EST. Negative mg/dL Negative-Tr malu URN.SPECIFIC GRAVITY 1.016 Jun 21, 2024 08:53 AM [facility] CBC BLOOD Specimen Type: BLOOD No comment entered. Ordering Provider: FRANCISCO WINTERS Report Released Date/Time: Sep 01, 2023 11:30 AM Reporting Lab: [address] [address] Performing Lab: [address] [address] WBC 6.2 10*3/uL 3.6-11.2 RBC 4.18 10*6/uL 4.10-5.70 HGB 12.8 g/dL L 13.1-16.8 HCT 37.9 L 38.2-48.4 MCV 90.7 fL 80.0-100.0 MCH 30.6 pg 27.0-34.0 MCHC 33.8 g/dL 33.0-36.0 PLT 172 10*3/uL 150-400 MPV 11.0 fL 7.5-11.2 RDW 12.9 11.8-15.1 LYMPHOCYTES, AUTO % 24 MONOCYTES, AUTO % 9 NEUTROPHILS, AUTO % 62 EOSINOPHILS, AUTO % 4 BASOPHILS, AUTO % 1 LYMPHOCYTES, ABSOLUTE 1.47 10*3/uL 0.77- 4.50 MONOCYTES, ABSOLUTE 0.55 10*3/uL 0.19-0. 80 NEUTROPHILS, ABSOLUTE 3.86 10*3/uL 2.10- 8.00 EOSINOPHILS, ABSOLUTE 0.25 10*3/uL 0.00- 0.60 BASOPHILS, ABSOLUTE 0.07 10*3/uL 0.00-0. 20 May 22, 2024 08:41 AM [facility] RENAL PANEL PLASMA Specimen Type: PLASM A Comment: No hemolysis noted. Ordering Provider: FRANCISCO WINTERS Report Released Date/Time: Sep 01, 2023 11:30 AM Reporting Lab: [address] [address] Performing Lab: [address] [address] CREATININE 1.88 mg/dL H 0.7-1.3 UREA NITROGEN 33.2 mg/dL H 9.0-25.0 GLUCOSE 114 mg/dL H 72-99 SODIUM 139 meq/L 136-145 POTASSIUM 4.6 meq/L 3.5-5 CHLORIDE 109 meq/L H 98-107 CARBON DIOXIDE 22 meq/L 22-31 CALCIUM 9.5 mg/dL 8.4-10.4 PHOSPHOROUS 3.3 mg/dL 2.3-4.7 ALBUMIN 3.6 g/dL 3.4-5 EGFR (CKD-EPI 2020) 38.0 >60 May 22, 2024 08:41 AM [facility] TACROLIMUS (STL-PB) BLOOD Specimen Type: BLOO D No comment entered. Ordering Provider: FRANCISCO WINTERS Report Released Date/Time: Sep 01, 2023 11:30 AM Reporting Lab: [place] [address] Performing Lab: [place] [address] TACROLIMUS (STL-PB) 6.7 ng/mL May 22, 2024 08:41 AM [facility] URINALYSIS (STL-PB) URINE Specimen Type: [...] Clinical correlation is suggested. Ordering Provider: FRANCISCO WINTERS Report Released Date/Time: Sep 01, 2023 11:30 AM Reporting Lab: [place] [address] Performing Lab: [place] [address] URINE COLOR Light-Yellow Yellow U.BILIRUBIN Negative mg/dL Negative U.PH 6.0 5.0-8.0 APPEARANCE Clear Clear U.NITRITE Negative mg/dL Negative URN.GLUCOSE > mg/dL H Negative URN.PROTEIN Negative mg/dL Negative-20 URN.UROBILINOGEN Normal mg/dL Normal URN.BLOOD Negative mg/dL Negative-Trace URN.KETONES Trace mg/dL Negative-Trace URN.LEUK.EST. Negative mg/dL Negative-Tr malu URN.SPECIFIC GRAVITY 1.018 1.005-1.029 May 22, 2024 08:41 AM [facility] CBC BLOOD Specimen Type: BLOOD No comment entered. Ordering Provider: FRANCISCO WINTERS Report Released Date/Time: Sep 01, 2023 11:30 AM Reporting Lab: [place] [address] Performing Lab: [facility] [address] [place] [address] WBC 6.8 10*3/uL 3.6-11.2 RBC 4.05 10*6/uL [...] 0.60 BASOPHILS, ABSOLUTE 0.05 10*3/uL 0.00-0. 20 Vital Signs: All taken on the encounter date This section contains inpatient and outpatient Vital Signs collected on the date of the Encounter. Date/Time Temperature Pulse Blood Pressure Respiratory Rate SP02 Pain Height Weight Body Mass Index Source Jun 13, 2024 08:56 AM 98 66 115/65 [address] [facility] Social History: Smoking Status (Most current) and Tobacco Use (All prior to encounter date) This section includes the most current, and the historical, smoking and tobacco- related health factors from the [place] facility where the Encounter took place. Current Smoking Status This section includes the most current smoking, or tobacco-related health factor, from the [place] facility where the Encounter took place. Date/Time Current Smoking Status Comment Jg ity Apr 12, 2024 02:09 PM [place]-TOBACCO NEVER USED [facility] Tobacco Use History This section includes a history of the smoking, or tobacco-related health factors, that were collected on or before the date of the Encounter. The data comes from the [place] facility where the Encounter took place. Date/Time Smoking Status/Tobacco Use Comment F acility Nov 07, 2022 01:35 PM [place]-TOBAC[place] NEVER USED [facility] Mar 17, 2021 07:44 PM ORYX ADMIT TOBACCO SCREEN NO [facility] Dec 18, 2020 11:14 PM [place]-TOBACCO NEVER USED [facility] Dec 18, 2020 08:23 PM ORYX ADMIT TOBACCO SCREEN NO [facility] Nov 14, 2006 01:52 PM LIFETIME NON-USER OF TOBACCO [facility] Nov 22, 2005 02:20 PM LIFETIME NON-TOBACCO USER [facility] Dec 08, 2004 01:37 PM LIFETIME NON-TOBACCO USER [facility] Jul 28, 2004 01:13 PM LIFETIME NON-TOBACCO USER [facility] Jul 09, 2003 01:05 PM LIFETIME NON-TOBACCO USER [facility] Jun 26, 2002 02:05 PM LIFETIME NON-TOBACCO USER [facility] May 23, 2001 01:12 PM LIFETIME NON-TOBACCO USER [facility] Jun 14, 2000 01:24 PM LIFETIME NON-TOBACCO USER [facility] Pathology Reports: +/- 30 days of the encounter Pathology Reports For cases when an order for pathology services may have been completed prior to the date of the Encounter, the report list includes the Pathology Reports that were completed up to 30 days before dateof the Encounter. For cases when an order for pathology services may have been completed after the date of the Encounter, the report list also includes the Pathology Reports that were completed up to30 days after date of the Encounter. The data comes from all [facility]. Date/Time Pathology Report Provider Source Jul 08, 2024 03:14 PM LR SURGICAL PATHOL OGY REPORT: LOCAL TITLE: LR SURGICAL PATHOLOGY REPORT STANDARD TITLE: PATHOLOGY PROCEDURE NOTE DATE OF NOTE: JUL 08, 2024@15:14:32 ENTRY DATE: JUL 08, 2024@15:14:32 AUTHOR: JAVIER HOFF EXP COSIGNER: URGENCY: STATUS: COMPLETED $APHDR - - - - - - - - - - - - - - - - - - - - - - - - - - - - - - - - - - - - - - - - MEDICAL RECORD SURGICAL PATHOLOGY - - - - - - - - - - - - - - - - - - - - - - - - - - - - - - - - - - - - - - - - PATHOLOGY REPORT Accession No. [id number] - - - - - - - - - - - - - - - - - - - - - - - - - - - - - - - - - - - - - - - - $TEXT Submitted by: JERE SAGE Date obtained: Jul 05, 2024 14:58 - - - - - - - - - - - - - - - - - - - - - - - - - - - - - - - - - - - - - - - - Specimen (Received Jul 05, 2024 15:01): A. T.I. BIOPSY B. RANDOM COLON BIOPSY C. ASCENDING COLON POLYPS X 2 D. TATTOO SITE COLON POLYP E. TRANSVERSE COLON POLYP - - - - - - - - - - - - - - - - - - - - - - - - - - - - - - - - - - - - - - - - BRIEF CLINICAL HISTORY: Diarrhea, prior large polyp resection - - - - - - - - - - - - - - - - - - - - - - - - - - - - - - - - - - - - - - - - PREOPERATIVE DIAGNOSIS: - - - - - - - - - - - - - - - - - - - - - - - - - - - - - - - - - - - - - - - - OPERATIVE FINDINGS: - - - - - - - - - - - - - - - - - - - - - - - - - - - - - - - - - - - - - - - - POSTOPERATIVE DIAGNOSIS: Surgeon/physician: OLVIN MOORE MD =-=-=-=-=-=-=-=-=-=-=-=-=-= -=-=-=-=-=-=-=-=-=-=-=-=-=- =-=-=-=-=-=-=-=-=-=-=-=-= - - - - - - - - - - - - - - - - - - - - - - - - - - - - - - - - - - - - - - - - PATHOLOGY REPORT Accession No. SP [id number] - - - - - - - - - - - - - - - - - - - - - - - - - - - - - - - - - - - - - - - - GROSS DESCRIPTION: Lara Olivier, 07/05/24 The specimen is received in formalin in five containers, each labeled with the patient's full name and SSN. A. Labeled as T.I. Biopsy are two espinoza tissue fragments measuring 0.3 x 0.3 x 0.3 and 0.4 x 0.3 x 0.3 cm, which are submitted in toto in A1. B. Labeled as Random Colon Biopsy are multiple espinoza tissue fragments measuring 0.9 x 0.8 x 0.2 cm in aggregate, which are submitted in toto in B1. C. Labeled as Ascending Colon Polyps x 2 are three red-espinoza tissue fragments measuring from 0.3 to 0.7 cm, in greatest dimension and 0.9 x 0.7 x 0.2 cm in aggregate, which are submitted in toto in C1. D. Labeled as Tattoo Site Colon Polyp are multiple red-espinoza tissue fragments measuring 1.5 x 1.3 x 0.3 cm in aggregate, which are submitted in toto in D1. E. Labeled as Transverse Colon Polyp is one red-espinoza tissue fragment measuring 0.5 x 0.3 x 0.2 cm, which is submitted in toto in E1. MICROSCOPIC EXAM: (Julio Cesar) Microscopic examination of the sections submitted from terminal ileum shows ileal mucosa with preserved villus crypt architecture. Acute inflammation, granuloma formation or increase in intraepithelial lymphocytes is not seen. Microscopic examination of the sections submitted from random colon shows colon mucosa with preserved crypt architecture. Acute cryptitis, crypt abscesses or granuloma formations are not seen. Thickening of the subepithelial collagen plate or increase in intraepithelial lymphocytes is not seen. Variable edema, capillary congestion and reactive lymphoid aggregates are noted. Microscopic examination of the sections submitted from ascending colon polyps shows tubular adenomas. High grade dysplasia is not seen within these sections. Microscopic examination of the sections submitted from tattoo site colon polyp shows a tubular adenoma. High grade dysplasia is not seen within these sections. Microscopic examination of the sections submitted from transverse colon polyp shows focal hyperplastic changes and reactive lymphoid aggregate. Dysplasia is not seen within these sections. Serial levels are examined. DIAGNOSIS: TERMINAL ILEUM, BIOPSY: NO PATHOLOGIC DIAGNOSIS COLON, RANDOM, BIOPSY: MINIMAL HISTOLOGICAL CHANGES COLON, ASCENDING, POLYPS X2, BIOPSY: TUBULAR ADNEOMAS COLON, TATTOO SITE POLYP, BIOPSY: TUBULAR ADENOMA COLON, TRANSVERSE, POLYP, BIOPSY: FOCAL HYPERPLASTIC CHANGES /charly/ JAVIER HOFF Pathologist Signed Jul 08, 2024@15:14 Performing Laboratory: Surgical Pathology Report Performed By: [facility]# [id number] [address] [place] [phone] $FTR - - - - - - - - - - - - - - - - - - - - - - - - - - - - - - - - - - - - - - - - (End of report) JAVIER HOFF MD [facility] Date Jul 08, 2024 - - - - - - - - - - - - - - - - - - - - - - - - - - - - - - - - - - - - - - - - DAT GANNON STANDARD FORM 515 ID:[id number] SEX:M :1955 AGE: 69 LOC:GILABA2 PCP: Mckenna Matthews MD /charly/ JAVIER HOFF Pathologist Signed: 07/08/2024 15:14 JAVIER HOFF [facility] Encounter Notes: All associated encounter notes This section contains the clinical notes associated to the Encounter. Date/Time Encounter Note(s) Provider Source Jun 13, 2024 09:02 AM [facility] NOTE: LOCAL TITLE: ENDOCRINOLOGY OUTPATIENT FOLLOW UP [facility] STANDARD TITLE: ENDOCRINOLOGY OUTPATIENT NOTE DATE OF NOTE: JUN 13, 2024@09:02 ENTRY DATE: JUN 13, 2024@09:02:48 AUTHOR: RODNEY CHAN EXP COSIGNER: URGENCY: STATUS: COMPLETED HPI: DAT GANNON is a 69 yo WHITE MALE here for f/u on PMH recurrent DVT's, diabetes C/B neuropathy, retinopathy, SP kidney transplant here for f/u on type 1 diabetes on insulin pump. last visit 01/2024, 09/2023, 04/2023, 02/2023, 11/2022, 06/2022, 03/2022, 01/2022, 10/2021 previously f/b Dr Whalen 2017 history: 10/2018 dx mod-severe MEDARDO at outside sleep clinic 11/27/2018 Patient was given a CPAP machine 12/19/2018 s/p dual chamber pacemaker implant f/b renal transplant team at [facility] also seeing Dr Winters at [place] here still seeing Dr. Jeter [facility] at [facility] for diabetes S: depressed about new dx pulmonary htn denies SI seeing mental health next week saw Dr Jeter at [facility] on Monday, POC a1c was 7.6% doing well on 780G medtronic with guardian 4 CGM, smart guard x 02/2024 no illness, hospitalizations type DM 1 x 1978 He is wearing Medtronic insulin pump insulin: novolog insulin pump: upgraded Medtronic 670G insulin pump with Guardian CGM trying to use automode--in it last few hours finally Basal --- total 22.1 units/day 0000 0.975 u/hr 0130 0.925 u/hr 2030 0.875 u/hr BOLUS CHO ratio 0000 6 1130 9 1730 6 sensitivity 25 BG target 100-120 act ins time 2 hrs [facility] report: 05/31-06/13/2024 Total daily dose 38.7 Bolus 19.2 Auto Correction 7.8 Basal 19.5 guardian 4 sensor 57% smartguard 52% time in range 70-180: 66 % high >180: 23% very high > 250: 11 % hypo <70: 0% hypo-occasionally still has glucagon pen can use more glucose tablets --ordered took glucagon 10/2018 for BG in 30s hypoawareness: occasionally, +s/s <60 physical activity: unchanged doing upper body strengthening with OYO machine/device used to row for lower body/cardio, feels he plateaued rowing machine 20 mins diet: 2-3 meals a day, reportedly eating same [address] 01/26/2023 eye exam: due for DFE was followed by ophth oculopastics 03/2022 optom H/o Proliferative Diabetic Retinopathy OU Followed by the [facility] q6 months - last seen 01/[address] 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 ROS: weight stable denies change in vision +neuropathy--balance issues, heaviness/weakness up to knees--not new: PRN gabapentin denies cx pain, SOB denies bowel changes Active Outpatient Medications (including Supplies): Active Outpatient Medications Status 1) ACCU-CHEK GUIDE (GLUCOSE) TEST STRIP USE 1 STRIP FOR ACTIVE BLOOD TEST 6 TIMES A DAY *INSULIN PUMP THERAPY* Sep 2) AMLODIPINE BESYLATE 10MG TAB TAKE ONE TABLET BY MOUTH ACTIVE ONCE A DAY FOR HIGH BLOOD PRESSURE 3) APIXABAN 5MG TAB TAKE ONE TABLET BY MOUTH TWICE A DAY ACTIVE FOR ANTICOAGULATION 4) ATORVASTATIN CALCIUM 20MG TAB TAKE ONE-HALF TABLET BY ACTIVE MOUTH EVERY EVENING FOR HIGH CHOLESTEROL REPLACES SIMVASTATIN 5) BUMETANIDE 1MG TAB TAKE ONE TABLET BY MOUTH EVERY ACTIVE OTHER DAY FOR FLUID RETENTION (EDEMA) REPLACES FUROSEMIDE 6) COLESTIPOL HCL 1GM TAB TAKE ONE TABLET BY MOUTH EVERY ACTIVE MORNING AND EVENING (OTHER MEDICATIONS SHOULD BE TAKEN 1 HOUR BEFORE OR 4 HOURS AFTER COLESTIPOL) 7) CONTOUR NEXT (GLUCOSE) TEST STRIP USE 1 STRIP FOR ACTIVE BLOOD TEST 6 TIMES A DAY FOR BLOOD SUGAR MONITORING 8) FERROUS SULFATE 325MG TAB TAKE ONE TABLET BY MOUTH ACTIVE ONCE A DAY FOR IRON SUPPLEMENTATION. 9) GLUCAGON 1MG/AURA INJ EMERGENCY KIT INJECT 1MG/1VIAL ACTIVE INTRAMUSCULARLY NEEDED FOR LOW BLOOD SUGAR 10) GLUCOSE SENSOR (4) GUARDIAN MMT-7040 USE 1 SENSOR ACTIVE UNDER THE SKIN EVERY WEEK FOR BLOOD SUGAR MONITORING 11) INSULIN,ASPART,HUMAN 100 UNIT/ML (PUMP) INJECT ACTIVE BASAL/BOLUS INSULIN UNDER THE SKIN CONTINUOUS VIA PUMP FOR DIABETES - INFUSING THRU PATIENT'S ATTACHED INSULIN PUMP 12) LISINOPRIL 40MG TAB TAKE ONE TABLET BY MOUTH ONCE A ACTIVE DAY FOR HEART OR BLOOD PRESSURE 13) METOPROLOL TARTRATE 100MG TAB TAKE ONE TABLET BY ACTIVE MOUTH TWICE A DAY FOR HEART/BLOOD PRESSURE. TAKE WITH OR IMMEDIATELY FOLLOWING FOOD. NEW DOSE 14) OMEPRAZOLE 40MG EC CAP TAKE ONE CAPSULE BY MOUTH ACTIVE EVERY MORNING BEFORE A MEAL TO LOWER STOMACH ACID. TAKE 30 MINUTES PRIOR TO FOOD. 15) PREDNISONE 5MG TAB TAKE ONE TABLET BY MOUTH EVERY ACTIVE MORNING WITH FOOD 16) SODIUM BICARBONATE 650MG TAB TAKE TWO TABLETS BY ACTIVE MOUTH TWICE A DAY 17) TACROLIMUS 1MG CAP TAKE TWO CAPSULES BY MOUTH EVERY ACTIVE MORNING AND TAKE ONE CAPSULE EVERY EVENING TO PREVENT TRANSPLANT REJECTION 18) TAMSULOSIN HCL 0.4MG CAP TAKE TWO CAPSULES BY MOUTH ACTIVE EVERY EVENING APPROXIMATELY 30 MINUTES AFTER THE SAME MEAL EACH DAY (FOR PROSTATE) 19) VENLAFAXINE HCL 37.5MG 24HR SA CAP TAKE TWO CAPSULES ACTIVE BY MOUTH ONCE A DAY WITH FOOD. DO NOT ABRUPTLY DISCONTINUE MEDICATION. Allergies: MORPHINE PAST HISTORY: 1) Diabetic nephropathy (SNOMED CT 983290161) 2) Ulcer of lower Limb, unspecified (ICD-9-CM 707.10) 3) Erectile dysfunction due to diabetes mellitus (SNOMED CT 733076970) 4) Anemia in Chronic Kidney Disease (ICD-9-CM 285.21) 5) HTN - Hypertension (SNOMED CT 41776590) 6) GERD * (ICD-9-CM 530.81) 7) Acidosis, metabolic NEC (ICD-9-CM 276.2) 8) Diabetic nephropathy (SNOMED CT 222890558) 9) Hypertensive chronic kidney disease, unspecified, with chronic kidney disease St 10) History of - kidney recipient (SNOMED CT 734711039) 11) Other Fluid Overload (ICD-9-CM 276.69) 12) Anticoagulant effect 13) Insulin pump present 14) Sinus bradycardia 15) Permanent cardiac pacemaker 16) Therapeutic drug effect 17) Acute osteomyelitis of foot 18) History of venous thrombosis 19) Postthrombotic syndrome 20) Sleep apnea 21) Lack of exercise 22) Coronary artery disease 23) Osteopenia 24) Patent foramen ovale PHYSICAL EXAM: Vital Signs- Temperature: 98 F [36.7 C] (06/13/2024 08:56) HR: 66 (06/13/2024 08:56) BP: Measurement DT BP 06/13/2024 08:56 115/65 05/03/2024 09:54 132/53 04/23/2024 12:58 122/68 Weight: 226 lb [102.51 kg] (06/13/2024 08:56) Patient Weight History - Last Four 1. 226.0 lbs. / 102.5 kg. on JUN 13, 2024@08:56:02 2. 232.7 lbs. / 105.6 kg. on MAY 03, 2024@09:54:51 3. 230.1 lbs. / 104.4 kg. on APR 23, 2024@12:58:33 4. 238.8 lbs. / 108.3 kg. 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 LABS: SODIUM 139 mEq/L 05/22/2024 08:41 POTASSIUM 4.6 mEq/L 05/22/2024 08:41 CHLORIDE 109 H mEq/L 05/22/2024 08:41 UREA NITROGEN 33.2 H mg/dL 05/22/2024 08:41 CREATININE 1.88 H mg/dL 05/22/2024 08:41 CALCIUM 9.5 mg/dL 05/22/2024 08:41 CARBON DIOXIDE 22 mEq/L 05/22/2024 08:41 GLUCOSE 114 H mg/dL 05/22/2024 08:41 EGFR (CKD-EPI 2020) 38.0 05/22/2024 08:41 Microalb/creat: CREATuF: 72.3 (09/28/23 08:49) M/CREAT: comment (02/21/23 10:34) MICRAL: <5.0 (02/21/23 10:34) No MICRAL/CREAT RATIO (STL) data found HGA1C 7.9 H % 03/21/2024 09:34 HGA1C 8.1 H % 03/15/2024 00:00 HGA1C 8.0 H % 12/13/2023 08:22 HGA1C 7.8 H % 09/12/2023 08:17 HGA1C 7.7 H % 08/16/2023 09:14 Lipid Panel: TRIGLYCERIDE 95 mg/dL 03/21/2024 09:34 CHOLESTEROL 99 mg/dL 03/21/2024 09:34 HDL(New) 39 L mg/dL 03/21/2024 09:34 CALCULATED LDL 41 mg/dL 03/21/2024 09:34 TSH 2.446 uIU/mL 02/03/2023 08:11 A/P: # DIABETES, type 1 +CKD s/p renal tx upgraded Medtronic 780G insulin pump with Guardian 4 02/2024 and SMARTGUARD was on 670G insulin pump with Guardian CGM 01/2020 w/ automode also f/b Dr Jeter at [facility] +hypounaware at times downloaded insulin pump in clinic smartguard 52% time in range 66% --stable goal 50-70% for a1c goal <8% physical activity limited by balance issues, doing upper body strengthening goal A1c <7-7.5%, FBS 80-130, 2 hr PP <180 per [facility] guidelines, CKD, DM >40 yrs reviewed hypoglycemia, S/S hypoglycemia and how to treat-rule of 15. has glucagon pen ordered glucose tablets pump fail back up-- has syringes Stressed foot care, f/b leg ulcer clinic Eye exam annually--DUE for DFE, advisd to stop at 1st floor to make appt Plan: -no changes to pump settings reminded bolus for ALL carbs reviewed temporary BG target again use temp BG target for 8 hours to avoid hypos overnight for inpatient use only back up plan Lantus 15 units once daily Novolog 4 units TID QAC low dose SSI QID AC/HS PRN # DM neuropathy taking gabapentin PRN (/last filled 08/2021) foot ulcer, was f/b plastics in past # HTN, controlled # CKD # S/P renal transplant on metoprolol, amlodlipine, lisinopril, cellcept, prograf, prednisone 5mg daily f/b Nephrology # HL #CAD LDL at goal 03/2024 on atorvastatin 10mg daily, Apixaban (recurrent DVTs), ct per PCP # osteopenia hx renal transplant --on prednisone, tacrolimus, cellcept f/b by outside and [facility] DEXA 01/2018 Lumbar spine: Measured BMD in L1-L4 is 0.954 g/cm2; T-score = -1.2 09/13 Radius: Measured BMD in left one-third radius is 0.760 g/cm2; T-score = -1.1 Femoral neck: Measured BMD in left femoral neck is 0.773 g/cm2; T-score = -1.2 Total hip: Measured BMD in left total hip is 0.960 g/cm2; T-score = -0.5 FRAX score: 10 year fracture risk for hip fracture is 0.9 % and for major osteoporotic fracture is 7.7 %. 04/2021 Findings: Bone mineral density measurements of the forearm, proximal femur and lumbar spine with their appropriate regions of interest outlined are available for viewing in [facility]. Lumbar spine: Measured BMD in L1-L4 is 1.000 g/cm2; T-score = -0.8 1/3 Radius: Measured BMD in left one-third radius is 0.748 g/cm2; T-score = -1.3 Femoral neck: Measured BMD in right femoral neck is 0.862 g/cm2; T-score = -0.5 Total hip: Measured BMD in right total hip is 0.962 g/cm2; T-score = -0.5 Impression: The minimum BMD T-score positions the patient in the osteopenia category. 06/02/2023 10:19 Procedure Name NM BONE DENSITY(DXA), AXIAL SKELETON Reason for Study evaluate for osteoporosis Clinical History Reason for exam: Residential steroid use with historical height loss - evaluate for osteoporosis WT: 258.3 lb [117.16 kg] (05/08/2023 10:08) HT: 72 in [182.9 cm] (03/31/2023 13:31) Impression 1. Bone mineral density measurements are consistent with osteopenia and associated with mildly increased risk for fracture. 2. Compared to the prior study of 05/10/2021, there is statistically significant increased measured density. 3. Images are not of radiographic quality to allow diagnosis of anatomically characterized lesion. 4. Bone density study printout report including FRAX Fracture Risk Assessment can be viewed in [facility]. 5. The TBS value at L1-L4 is 1.042 consistent with degraded microarchitecture. The associated BMD and TBS values suggest a moderate resilience to fracture. 6. VFA demonstrates severe wedging at T6 and mild wedging of T9, and T10 and moderately severe wedging and biconcave deformity of T8. T-score less than -1 and greater than -2.5 meets WHO criteria for the diagnosis of osteopenia. Vertebral fracture assessment using Genant semiquantitative technique: Mild, 20-25% Moderate 25-40 Severe >40% -on OTC MV and OTC vitamin D3 2000 units daily -fall prevention -avoid smoking and excessive ETOH intake # MEDARDO dx'd 10/2018 wearing CPAP RTC 6 months I spent 40 minutes performing services for this patient: before, during and after the F2F visit today more than 50% of the provider's [id number] visit time with a patient is spent in counseling or coordination of care PAVE Foot Check: A complete foot check was completed at this encounter. VISUAL INSPECTION: Includes inspection for skin breaks, deformity, erythema, trauma, pallor on elevation, dependent rubor, nail deformities, extensive callus and pitting edema. Visual exam results: Abnormal Observations: red 3rd digit, pt reports chronic PEDAL PULSES: Includes palpation of dorsalis and posterior tibial pulses and signs/symptoms of vascular compromise like pain, pallor, parasthesia or paralysis. Present (even if diminished) SENSORY CHECK: Includes 10 gram Monofilament ([place]-Justin) test of sensation. Intact (Greater than or equal to 80% of sites checked) Abnormal (Less than 80% of sites checked): Abnormal (decreased or absent sensation to monofilament): HIGH-RISK: HIGH RISK INFORMATION PROVIDED: 1. Advised patient that extra depth footwear with soft molded inserts and braces may be required. 2. Advised patient not to walk barefoot. 3. Explained the importance of daily foot checks. 4. Stressed the importance of daily foot hygiene, including bathing, complete drying and thorough inspection for changes. The patient verbalized understanding and was offered a detailed handout on diabetic foot care. Patient is established patient of Podiatry and/or Vascular: Last scheduled appointment: [Place data object here] /charly/ RODNEY CONTE [facility]- ENDOCRINE NURSE PRACTITIONER Signed: 06/13/2024 09:45 RODNEY CHAN [facility]
--- OUTSIDE RECORDS SUMMARY | 2024-06-14 04:30 | XMS_ITS | Encounter Summary ---
Author Name [facility] [place] [facility] [place] Address [address] [place] [address] Care Team Providers Care Battery Inspector Name Role Phone MCKENNA MATTHEWS Primary Care Provider Unavailbria e Insurance [...] PART A Feb 09, 2019 PART A [id number] ANA GANNON EPH PATIENT MEDICARE (WNR) MEDICARE (M) PART B Feb 09, 2019 PART B [id number] ANA GANNON EPH PATIENT MEDICARE (WNR) MEDICARE (M) PART A Feb 09, 2019 PART A [id number] ANA GANNON EPH PATIENT MEDICARE (WNR) MEDICARE (M) PART B Feb 09, 2019 PART B [id number] ANA GANNON PATIENT MEDICARE (WNR) MEDICARE (M) PART A Feb 09, 2019 PART A [id number] ANA GANNON EPH PATIENT MEDICARE (WNR) MEDICARE (M) PART B Feb 09, 2019 PART B [id number] ANA GANNON PATIENT MEDICARE PART D (WNR) MEDICARE (M) PART D Sep 11, 2019 PART D [id number] ANA GANNON PATIENT Selected Encounter This section includes the information on record at [place] for the Encounter. Date/Time Encounter Type Encounter Description Reason Provider Source Jun 14, 2024 09:30 AM THERAPEUTIC ACTIVITIES OCCUPATIONAL THERAPY ICD-10-CM I89.0 Lymphedema, not elsewhere classified MACO PARRA Suzette Encounter Template Text not used by [place] Assessments - Encounter Diagnoses This section includes the primary and secondary diagnoses documented for the Encounter. Date/Time Primary/Secondary Diagnosis Diagnosis Name Provider Source Jun 14, 2024 09:48 AM PRIMARY Lymphedema, not elsewhere classified MACO PARRA [facility] Plan of Treatment: Future Appointments (+ 6 months) and Future Tests (+/- 45 days) The Plan of Treatment section includes future care activities for the patient from all [place] treatmentfacilities. This section includes future appointments and future orders which are active, pending or scheduled. Future Appointments This section includes appointments that were scheduled to occur 6 months from the date of the Encounter, up to a maximum of 20 appointments. The data comes from all [place] treatment facilities. Appointment Date/Time Appointment Type Appointme nt Facility Name Jun 18, 2024 10:00 AM AMBULATORY - MEDICINE . [facility] Jun 27, 2024 02:30 PM AMBULATORY - MEDICINE [facility] Jul 05, 2024 11:15 AM AMBULATORY - MEDICINE [facility] Jul 18, 2024 09:15 AM AMBULATORY - NONE [facility] Jul 18, 2024 09:45 AM AMBULATORY - MEDICINE [facility] Jul 19, 2024 09:00 AM AMBULATORY - MEDICINE [facility] Aug 21, 2024 09:00 AM AMBULATORY - MEDICINE [facility] Aug 30, 2024 09:00 AM AMBULATORY - MEDICINE [facility] Sep 05, 2024 09:00 AM AMBULATORY - MEDICINE . [facility] Sep 10, 2024 11:00 AM AMBULATORY - NONE [facility] Sep 18, 2024 02:00 PM AMBULATORY - MEDICINE [facility] Sep 19, 2024 09:00 AM AMBULATORY - SURGERY [facility] Sep 25, 2024 09:45 AM AMBULATORY - MEDICINE [facility] Oct 03, 2024 09:15 AM AMBULATORY - MEDICINE [facility] Oct 03, 2024 09:30 AM AMBULATORY - MEDICINE [facility] Oct 04, 2024 06:45 AM AMBULATORY - NONE [facility] Oct 04, 2024 07:00 AM AMBULATORY - MEDICINE [facility] Oct 08, 2024 02:20 PM AMBULATORY - MEDICINE [facility] Nov 18, 2024 10:00 AM AMBULATORY - REHAB MEDICIN E [facility] Nov 22, 2024 10:00 AM AMBULATORY - MEDICINE [facility] Lab Results: +/- 30 days [...] Type Comment Jun 21, 2024 08:53 AM [facility] HGA1C BLOOD Specimen Type: BLOOD No comment entered. Ordering Provider: FRANCISCO DAILY Report Released Date/Time: Sep 01, 2023 11:30 AM Reporting Lab: [address] [phone] Performing Lab: [address] [address] HGA1C 8.0 H 4.0-6.0 Jun 21, 2024 08:53 AM [facility] TACROLIMUS (STL-PB) BLOOD Specimen Type: BLOO D No comment entered. Ordering Provider: FRANCISCO DAILY Report Released Date/Time: Sep 01, 2023 11:30 AM Reporting Lab: [facility] [address] [facility] [phone] Performing Lab: [facility] [address] [place] [phone] TACROLIMUS (STL-PB) 6.7 ng/mL Jun 21, 2024 08:53 AM [facility] RENAL PANEL PLASMA Specimen Type: PLASM A Comment: No hemolysis noted. Ordering Provider: FRANCISCO DAILY Report Released Date/Time: Sep 01, 2023 11:30 AM Reporting Lab: [address] [address] Performing Lab: [address] [address] CREATININE 1.95 mg/dL H 0.7-1.3 UREA NITROGEN 33.2 mg/dL H 9.0-25.0 GLUCOSE 136 mg/dL H 72-99 SODIUM 137 meq/L 136-145 POTASSIUM 4.8 meq/L 3.5-5 CHLORIDE 110 meq/L H 98-107 CARBON DIOXIDE 18 meq/L L 22-31 CALCIUM 9.3 mg/dL 8.4-10.4 PHOSPHOROUS 3.5 mg/dL 2.3-4.7 ALBUMIN 3.7 g/dL 3.4-5 EGFR (CKD-EPI 2020) 36.3 >60 Jun 21, 2024 08:53 AM [facility] URINALYSIS (STL-PB) URINE Specimen Type: URIN E No comment entered. Ordering Provider: FRANCISCO DAILY Report Released Date/Time: Sep 01, 2023 11:30 AM Reporting Lab: [address] [address] Performing Lab: [address] [address] URINE COLOR Light-Yellow Yellow U.BILIRUBIN Negative mg/dL [...] GRAVITY 1.016 Jun 21, 2024 08:53 AM [facility] CBC BLOOD Specimen Type: BLOOD No comment entered. Ordering Provider: FRANCISCO DAILY Report Released Date/Time: Sep 01, 2023 11:30 AM Reporting Lab: [address] [address] Performing Lab: [address] [address] WBC 6.2 10*3/uL 3.6-11.2 RBC 4.18 10*6/uL [...] 0.00-0. 20 May 22, 2024 08:41 AM [facility] TACROLIMUS (STL-PB) BLOOD Specimen Type: BLOO D No comment entered. Ordering Provider: FRANCISCO DAILY Report Released Date/Time: Sep 01, 2023 11:30 AM Reporting Lab: [facility] [address] [facility] [phone] Performing Lab: [facility] [address] [place] [phone] TACROLIMUS (STL-PB) 6.7 ng/mL May 22, 2024 08:41 AM [facility] RENAL PANEL PLASMA Specimen Type: PLASM A Comment: No hemolysis noted. Ordering Provider: FRANCISCO DAILY Report Released Date/Time: Sep 01, 2023 11:30 AM Reporting Lab: [facility] [address] [place] [phone] Performing Lab: [address] [address] CREATININE 1.88 mg/dL H 0.7-1.3 UREA NITROGEN 33.2 mg/dL H 9.0-25.0 GLUCOSE 114 mg/dL H 72-99 SODIUM 139 meq/L 136-145 POTASSIUM 4.6 meq/L 3.5-5 CHLORIDE 109 meq/L H 98-107 CARBON DIOXIDE 22 meq/L 22-31 CALCIUM 9.5 mg/dL 8.4-10.4 PHOSPHOROUS 3.3 mg/dL 2.3-4.7 ALBUMIN 3.6 g/dL 3.4-5 EGFR (CKD-EPI 2020) 38.0 >60 May 22, 2024 08:41 AM [facility] URINALYSIS (STL-PB) URINE Specimen Type: [...] Sep 01, 2023 11:30 AM Reporting Lab: [address] [address] Performing Lab: [address] [address] URINE COLOR Light-Yellow Yellow U.BILIRUBIN Negative mg/dL Negative U.PH 6.0 5.0-8.0 APPEARANCE Clear Clear U.NITRITE Negative mg/dL Negative URN.GLUCOSE > mg/dL H Negative URN.PROTEIN Negative mg/dL Negative-20 URN.UROBILINOGEN Normal mg/dL Normal URN.BLOOD Negative mg/dL Negative-Trace URN.KETONES Trace mg/dL Negative-Trace URN.LEUK.EST. Negative mg/dL Negative-Tr malu URN.SPECIFIC GRAVITY 1.018 1.005-1.029 May 22, 2024 08:41 AM [facility] CBC BLOOD Specimen Type: BLOOD No comment entered. Ordering Provider: FRANCISCO DAILY Report Released Date/Time: Sep 01, 2023 11:30 AM Reporting Lab: [place] [phone] Performing Lab: [address] [address] WBC 6.8 10*3/uL 3.6-11.2 RBC 4.05 10*6/uL [...] 0.60 BASOPHILS, ABSOLUTE 0.05 10*3/uL 0.00-0. 20 Social History: Smoking Status (Most current) and Tobacco Use (All prior to encounter date) This section includes the most current, and the historical, smoking and tobacco- related health factors from the [facility] where the Encounter took place. Current Smoking Status This section includes the most current smoking, or tobacco-related health factor, from the [place] facility where the Encounter took place. Date/Time Current Smoking Status Comment Facil ity Apr 12, 2024 02:09 PM VA-TOBACCO NEVER USED [facility] Tobacco Use History This section includes a history of the smoking, or tobacco-related health factors, that were collected on or before the date of the Encounter. The data comes from the [place] facility where the Encounter took place. Date/Time Smoking Status/Tobacco Use Comment F acility Nov 07, 2022 01:35 PM VA-TOBACCO NEVER USED [facility] Mar 17, 2021 07:44 PM ORYX ADMIT TOBACCO SCREEN NO [facility] Dec 18, 2020 11:14 PM VA-TOBACCO NEVER USED [facility] Dec 18, 2020 08:23 PM ORYX ADMIT TOBACCO SCREEN NO [facility] Nov 14, 2006 01:52 PM LIFETIME NON-USER OF TOBACCO [facility] Nov 22, 2005 02:20 PM LIFETIME NON-TOBACCO USER [facility] Dec 08, 2004 01:37 PM LIFETIME NON-TOBACCO USER [facility] Jul 28, 2004 01:13 PM LIFETIME NON-TOBACCO USER [facility] Jul 09, 2003 01:05 PM LIFETIME NON-TOBACCO USER [facility] Jun 26, 2002 02:05 PM LIFETIME NON-TOBACCO USER [facility] May 23, 2001 01:12 PM LIFETIME NON-TOBACCO USER [facility] Jun 14, 2000 01:24 PM LIFETIME NON-TOBACCO USER [facility] Pathology Reports: +/- 30 days [...] the Encounter. The data comes from all [place] treatment facilities. Date/Time Pathology Report Provider Source Jul 08, [...] Performing Laboratory: Surgical Pathology Report Performed By: [id number] 5 [facility] [address] [place] [phone] $FTR - - - - - - - - - - - - - - - - - - - - - - - - - - - - - - - - - - - - - - - - (End of report) JAVIER HOFF MD [facility] Date Jul 08, 2024 - - - - - - - - - - - - - - - - - - - - - - - - - - - - - - - - - - - - - - - - DAT GANNON STANDARD FORM 515 ID:[id number] SEX:M :1955 AGE: 69 LOC:GILABA2 PCP: Mckenna Matthews MD /charly/ JAVIER HOFF Pathologist Signed: 07/08/2024 15:14 JAVIER HOFF [facility] Encounter Notes: All associated encounter notes This section contains the clinical notes associated to the Encounter. 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 No signs or symptoms of claudication or PAD Session # per current episode of care: 1 Date of Initial Evaluation: 08/02/21 Time spent: 10 min re-eval 20 min ther act Relevant PMH: CKD, HTN, DM, neuropathy S: Vet reports daily consistency with Bilat compreflex wraps and daily use of Flexitouch pump (sometimes 2x daily). Pt. goal - to decrease the edema in BLE. O: Vet into OP Lymph via use of R knee scooter, Bilat Compreflex calf and Left, No left AFO on this date. Vet reports to use knee scooter for longer distances only and not in the home. Vet ambulates in the home with no AD. BLE: Edema - measurements in cm: Right Left 10/06/17 04/06/18 10/06/17 04/06/18 04/01/19 10/01/19 great toe 8.3 8.5 9.0 8.3 8.9 8.9 8.8 8.6 mid MTs 22.4 22.3 23.7 22.4 22.8 22.9 23.8 22.1 ankle 22.3 23.1 24.0 22.4 21.7 21.4 22.5 23.2 mid calf 39.0 38.9 38.8 37.2 35.0 36.7 36.6 37.4 distal to knee 37.8 36.9 38.9 38.6 37.4 37.3 39.0 37.8 BLE: Edema - measurements in cm: Right 08/02/21 09/30/2102/2402/13/23 12/08/23 10/4 great toe 8.4 9.0 8.5 8.4 9.0 8.5 8.8 mid MTs 22.7 22.4 23.1 23.0 23.9 24.0 23.2 ankle 25.3 22.7 24.1 24.6 25.8 26.0 24.7 mid calf 41.6 37.5 37.6 37.8 39.3 39.5 37.2 distal to knee 37.2 36.5 37.0 36.4 38.7 38.0 38.0 Left 08/02/2102/2402/13/23 12/08/23 10/4 great toe 8.4 8.5 8.5 8.6 9.0 8.8 mid MTs 22.3 22.3 22.8 22.5 23.6 22.8 ankle 24.3 23.1 24.0 24.6 24.5 24.1 mid calf 37.1 37.5 36.4 37.0 37.0 34.0 distal to knee 37.0 37.0 36.1 35.6 37.0 35.0 Integumentary - clean, dry. Vet maintained significant decrease to almost all points of measurement as noted above. Right heal wound continues to be completely healed. 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 Left 3rd toe continues with small open area on dorsum of toe. Vet is being followed by [facility] for this. CLT appled Polymem-silver and wraped toe on this date. Feet - clean, dry, nails acceptable Previous edema tx - Short stretch lymphedema bandaging at [facility], Sigvaris complete garments, (2) L LE mediven round knit with closed toe, 20- 30mmHg. (2) R LE mediven round knit with closed toe, 30- 40mmHg. and [employer] Flexitouch single full leg A: has been able to maintain in the containment phase with said compression garments. Vet to contineu with Sigvaris calf with complete liners. Vet reports to greatly prefer these garments over standard compression garments. Vet has all of the necessary tools to treat his chronic lymphedema, vet receptive. Vet to continue with 6 month f/u's for re-assessment. Vet reports to still complete one session with bilat Flexitouch daily. Barriers - none. Equipment - (7) Sigvaris complete liners, Large, #[id number] 12/08/23 (4) Sigvaris Compreflex Complete, Size Large/Tall, #[id number] (3) Sigvaris complete liners, Large, #[id number] 02/13/23 (2) Sigvaris Compreflex Calf, Size Large/Tall, #[id number] (4) Sigvaris Basic liner, Medi Off Pt. ed - oriented pt. to edema management process; issued/reviewed written instructions for exercises to facilitate drainage, and meticulous skin care. P: Vet to f/u in 6 months for re-assessment. /charly/ FRANCIA Zavaleta/Tere, ISAACT Occupational Therapist Signed: 06/14/2024 09:48 MACO PARRA [facility]
--- OUTSIDE RECORDS SUMMARY | 2024-06-18 05:00 | XMS_ITS | Encounter Summary ---
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 Name Role Phone MCKENNA MATTHEWS Primary Care [...] PART A Feb 09, 2019 PART A [id number] ANA GANNON EPH PATIENT MEDICARE (WNR) MEDICARE (M) PART B Feb 09, 2019 PART B [id number] ANA GANNON EPH PATIENT MEDICARE (WNR) MEDICARE (M) PART A Feb 09, 2019 PART A [id number] ANA GANNON EPH PATIENT MEDICARE (WNR) MEDICARE (M) PART B Feb 09, 2019 PART B [id number] ANA GANNON PATIENT MEDICARE (WNR) MEDICARE (M) PART A Feb 09, 2019 PART A [id number] ANA GANNON PATIENT MEDICARE (WNR) MEDICARE (M) PART B Feb 09, 2019 PART B [id number] ANA GANNON PATIENT MEDICARE PART D (WNR) MEDICARE (M) PART D Sep 11, 2019 PART D [id number] ANA GANNON PATIENT Selected Encounter This section includes the information on record at MD for the Encounter. 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 This section includes future appointments and future orders which are active, pending or scheduled. Future Appointments This section includes appointments that were scheduled to occur 6 months from the date of the Encounter, up to a maximum of 20 appointments. The data comes from all MD treatment facilities. Appointment Date/Time Appointment Type Appointme nt Facility Name Jun 27, 2024 02:30 PM AMBULATORY - MEDICINE [facility] Jul 05, 2024 11:15 AM AMBULATORY - MEDICINE [facility] Jul 18, 2024 09:15 AM AMBULATORY - [facility] Jul 18, 2024 09:45 AM AMBULATORY - MEDICINE [facility] Jul 19, 2024 09:00 AM AMBULATORY - MEDICINE [facility] Aug 21, 2024 09:00 AM AMBULATORY - MEDICINE [facility] Aug 30, 2024 09:00 AM AMBULATORY - MEDICINE [facility] Sep 05, 2024 09:00 AM AMBULATORY - MEDICINE [facility] Sep 10, 2024 11:00 AM AMBULATORY - NONE [facility] Sep 18, 2024 02:00 PM AMBULATORY - MEDICINE [facility] Sep 19, 2024 09:00 AM AMBULATORY - SURGERY [facility] Sep 25, 2024 09:45 AM AMBULATORY - MEDICINE [facility] Oct 03, 2024 09:15 AM AMBULATORY - MEDICINE [facility] Oct 03, 2024 09:30 AM AMBULATORY - MEDICINE [facility] Oct 04, 2024 06:45 AM AMBULATORY - NONE [facility] Oct 04, 2024 07:00 AM AMBULATORY - MEDICINE [facility] Oct 08, 2024 02:20 PM AMBULATORY - MEDICINE [facility] Nov 18, 2024 10:00 AM AMBULATORY - REHAB MEDICIN E [facility] Nov 22, 2024 10:00 AM AMBULATORY - MEDICINE [facility] Nov 26, 2024 02:00 PM AMBULATORY - MEDICINE [facility] Lab Results: +/- 30 days of the encounter This section includes the Chemistry and Hematology Lab Results on record with MD for the patient. Radiology Reports and Pathology Reports are provided separately, in subsequent sections. Lab Results This section contains the Chemistry/Hematology Results that were resulted 30 days before or 30 daysafter the date of the Encounter. Date/Time Source Result Type Result - Unit Interpretation Reference Range Specimen Type Comment Jul 18, 2024 08:51 AM [facility] RENAL PANEL PLASMA Specimen Type: PLASMA Comment: No hemolysis noted. Ordering Provider: FRNACISCO DAILY Report Released Date/Time: Sep 01, 2023 11:30 AM Reporting Lab: [facility] [address] [facility] [address] Performing Lab: [place] [id number] [facility] [address] CREATININE 1.92 mg/dL H 0.7-1.3 UREA NITROGEN 38.0 mg/dL H 9.0-25.0 GLUCOSE 92 mg/dL 72-99 SODIUM 138 meq/L 136-145 POTASSIUM 4.9 meq/L 3.5-5 CHLORIDE 110 meq/L H 98-107 CARBON DIOXIDE 18 meq/L L 22-31 CALCIUM 9.2 mg/dL 8.4-10.4 PHOSPHOROUS 3.6 mg/dL 2.3-4.7 ALBUMIN 3.4 g/dL 3.4-5 EGFR (CKD-EPI 2020) 37.0 >60 Jul 18, 2024 08:51 AM [facility] TACROLIMUS (STL-PB) BLOOD Specimen Type: BLOO D No comment entered. Ordering Provider: FRANCISCO DAILY Report Released Date/Time: Sep 01, 2023 11:30 AM Reporting Lab: [address] [address] Performing Lab: [address] [address] TACROLIMUS (STL-PB) 3.1 ng/mL Jul 18, 2024 08:51 AM [facility] URINALYSIS (L-PB) URINE Specimen Type: URIN E No comment entered. Ordering Provider: FRANCISCO DAILY Report Released Date/Time: Sep 01, 2023 11:30 AM Reporting Lab: [address] [address] Performing Lab: [address] [address] URINE COLOR Light-Yellow Yellow U.BILIRUBIN Negative mg/dL Negative U.PH 6.0 5.0-8.0 APPEARANCE Clear Clear U.NITRITE Negative mg/dL Negative URN.GLUCOSE 70 mg/dL H Negative URN.PROTEIN Negative mg/dL URN.UROBILINOGEN Normal mg/dL Normal URN.BLOOD Negative mg/dL Negative-Trace URN.KETONES Negative mg/dL Negative-Trac e URN.LEUK.EST. Negative mg/dL Negative-Tr malu URN.SPECIFIC GRAVITY 1.014 Jul 18, 2024 08:51 AM [facility] CBC BLOOD Specimen Type: BLOOD No comment entered. Ordering Provider: FRANCISCO DAILY Report Released Date/Time: Sep 01, 2023 11:30 AM Reporting Lab: [address] [address] Performing Lab: [address] [address] WBC 5.8 10*3/uL 3.6-11.2 RBC 3.93 10*6/uL L 4.10-5.70 HGB 12.3 g/dL L 13.1-16.8 HCT 36.2 L 38.2-48.4 MCV 92.1 fL 80.0-100.0 MCH 31.3 pg 27.0-34.0 MCHC 34.0 g/dL 33.0-36.0 PLT 164 10*3/uL 150-400 MPV 10.6 fL 7.5-11.2 RDW 12.9 11.8-15.1 LYMPHOCYTES, AUTO % 24 MONOCYTES, AUTO % 11 NEUTROPHILS, AUTO % 60 EOSINOPHILS, AUTO % 5 BASOPHILS, AUTO % 1 LYMPHOCYTES, ABSOLUTE 1.37 10*3/uL 0.77- 4.50 MONOCYTES, ABSOLUTE 0.62 10*3/uL 0.19-0. 80 NEUTROPHILS, ABSOLUTE 3.48 10*3/uL 2.10- 8.00 EOSINOPHILS, ABSOLUTE 0.26 10*3/uL 0.00- 0.60 BASOPHILS, ABSOLUTE 0.06 10*3/uL 0.00-0. 20 Jun 21, 2024 08:53 AM [facility] HGA1C BLOOD Specimen Type: BLOOD No comment entered. Ordering Provider: FRANCISCO DAILY Report Released Date/Time: Sep 01, 2023 11:30 AM Reporting Lab: [address] [address] Performing Lab: [address] [address] HGA1C 8.0 H 4.0-6.0 Jun 21, 2024 08:53 AM [facility] TACROLIMUS (STL-PB) BLOOD Specimen Type: BLOO D No comment entered. Ordering Provider: FRANCISCO DAILY Report Released Date/Time: Sep 01, 2023 11:30 AM Reporting Lab: [facility] [address] [facility] [address] Performing Lab: [facility] [address] [place] [phone] TACROLIMUS (STL-PB) 6.7 ng/mL Jun 21, 2024 08:53 AM [facility] RENAL PANEL PLASMA Specimen Type: PLASM A Comment: No hemolysis noted. Ordering Provider: FRANCISCO DAILY Report Released Date/Time: Sep 01, 2023 11:30 AM Reporting Lab: [address] [address] Performing Lab: [address] [address] CREATININE 1.95 mg/dL H 0.7-1.3 UREA NITROGEN 33.2 mg/dL H 9.0-25.0 GLUCOSE 136 mg/dL H 72-99 SODIUM 137 meq/L 136-145 POTASSIUM 4.8 meq/L 3.5-5 CHLORIDE 110 meq/L H 98-107 CARBON DIOXIDE 18 meq/L L 22-31 CALCIUM 9.3 mg/dL 8.4-10.4 PHOSPHOROUS 3.5 mg/dL 2.3-4.7 ALBUMIN 3.7 g/dL 3.4-5 EGFR (CKD-EPI 2020) 36.3 >60 Jun 21, 2024 08:53 AM [facility] URINALYSIS (STL-PB) URINE Specimen Type: URIN E No comment entered. Ordering Provider: FRANCISCO DAILY Report Released Date/Time: Sep 01, 2023 11:30 AM Reporting Lab: [address] [address] Performing Lab: [address] [address] URINE COLOR Light-Yellow Yellow U.BILIRUBIN Negative mg/dL [...] GRAVITY 1.016 Jun 21, 2024 08:53 AM [facility] CBC BLOOD Specimen Type: BLOOD No comment entered. Ordering Provider: FRANCISCO DAILY Report Released Date/Time: Sep 01, 2023 11:30 AM Reporting Lab: [place] [address] [facility] [address] Performing Lab: [facility] [address] [facility] [address] WBC 6.2 10*3/uL 3.6-11.2 RBC 4.18 10*6/uL [...] 0.00-0. 20 May 22, 2024 08:41 AM [facility] TACROLIMUS (STL-PB) BLOOD Specimen Type: BLOO D No comment entered. Ordering Provider: FRANCISCO DAILY Report Released Date/Time: Sep 01, 2023 11:30 AM Reporting Lab: [facility] [address] [facility] [address] Performing Lab: [facility] [address] [place] [phone] TACROLIMUS (STL-PB) 6.7 ng/mL May 22, 2024 08:41 AM [facility] RENAL PANEL PLASMA Specimen Type: PLASM A Comment: No hemolysis noted. Ordering Provider: FRANCISCO DAILY Report Released Date/Time: Sep 01, 2023 11:30 AM Reporting Lab: [address] [address] Performing Lab: [address] [address] CREATININE 1.88 mg/dL H 0.7-1.3 UREA NITROGEN 33.2 mg/dL H 9.0-25.0 GLUCOSE 114 mg/dL H 72-99 SODIUM 139 meq/L 136-145 POTASSIUM 4.6 meq/L 3.5-5 CHLORIDE 109 meq/L H 98-107 CARBON DIOXIDE 22 meq/L 22-31 CALCIUM 9.5 mg/dL 8.4-10.4 PHOSPHOROUS 3.3 mg/dL 2.3-4.7 ALBUMIN 3.6 g/dL 3.4-5 EGFR (CKD-EPI 2020) 38.0 >60 May 22, 2024 08:41 AM [facility] URINALYSIS (STL-PB) URINE Specimen Type: [...] 01, 2023 11:30 AM Reporting Lab: [address] [address] Performing Lab: [address] [address] URINE COLOR Light-Yellow Yellow U.BILIRUBIN Negative mg/dL Negative U.PH 6.0 5.0-8.0 APPEARANCE Clear Clear U.NITRITE Negative mg/dL Negative URN.GLUCOSE > mg/dL H Negative URN.PROTEIN Negative mg/dL Negative-20 URN.UROBILINOGEN Normal mg/dL Normal URN.BLOOD Negative mg/dL Negative-Trace URN.KETONES Trace mg/dL Negative-Trace URN.LEUK.EST. Negative mg/dL Negative-Tr malu URN.SPECIFIC GRAVITY 1.018 1.005-1.029 May 22, 2024 08:41 AM [facility] CBC BLOOD Specimen Type: BLOOD No comment entered. Ordering Provider: FRANCISCO DAILY Report Released Date/Time: Sep 01, 2023 11:30 AM Reporting Lab: [place] [address] Performing Lab: [place] [address] WBC 6.8 10*3/uL 3.6-11.2 RBC 4.05 10*6/uL [...] and tobacco- related health factors from the MD facility where the Encounter took place. Current Smoking Status This section includes the most current smoking, or tobacco-related health factor, from the MD facility where the Encounter took place. Date/Time Current Smoking Status Comment Facil ity Nov 22, 2021 10:00 AM VA-TOBACCO NEVER USED [facility] Tobacco Use History This section includes a history of the smoking, or tobacco-related health factors, that were collected on or before the date of the Encounter. The data comes from the MD facility where the Encounter took place. Date/Time Smoking Status/Tobacco Use Comment F acility Sep 26, 2018 08:30 AM [facility] Jun 25, 2018 10:53 AM MD-TOBACCO [facility] Dec 22, 2017 10:58 AM MD-TOBACCO NEVER [facility]ED [facility] Jun 28, 2017 11:04 AM LIFETIME NON-USER OF TOBACCO [facility] Jun 21, 2017 09:54 AM LIFETIME NON-USER OF TOBAC CO non user [facility] May 10, 2017 09:43 AM LIFETIME NON-USER OF TOBAC CO [facility] Feb 17, 2017 08:27 AM LIFETIME NON-USER OF TOBACCO [facility] January 14, 2016 02:12 PM LIFETIME NON-USER OF TOBACCO [facility] Pathology Reports: +/- 30 days of the [...] the Encounter. The data comes from all MD treatment facilities. Date/Time Pathology Report Provider Source [...] Performing Laboratory: Surgical Pathology Report Performed By: [facility] [address] [place] [address]# [id number] [address] [place] [phone] $FTR - - - - - - - - - - - - - - - - - - - - - - - - - - - - - - - - - - - - - - - - (End of report) JAVIER HOFF MD [facility] Date Jul 08, 2024 - - - - - - - - - - - - - - - - - - - - - - - - - - - - - - - - - - - - - - - - DAT GANNON STANDARD FORM 515 ID:[id number] SEX:M :1955 AGE: 69 LOC:GILABA2 PCP: Mckenna Matthews MD /charly/ JAVIER HOFF Pathologist Signed: 07/08/2024 15:14 JAVIER HOFF [facility] Encounter Notes: All associated encounter notes This section contains the clinical notes associated to the Encounter. Date/Time Encounter Note(s) Provider Source Jun 18, 2024 10:19 AM PSYCHOLOGY OUTPATI ENT NOTE: LOCAL TITLE: PRIMARY CARE PSYCHOLOGY NOTE [facility] STANDARD TITLE: PSYCHOLOGY OUTPATIENT NOTE DATE OF NOTE: JUN 18, 2024@10:19 ENTRY DATE: JUN 18, 2024@10:19:24 AUTHOR: ANGELI BECERRIL EXP COSIGNER: URGENCY: STATUS: COMPLETED NAME: DAT GANNON DATE OF : Feb TIME SPENT WITH PATIENT: 30 minutes DIAGNOSIS BEING TREATED: Depressive D/O d/t Another Medical Condition, Relationship Distress with Spouse CPT Code: 04799 NATURE OF ENCOUNTER: follow up visit SESSION FORMAT: [X] [id number] [ ] Video Telehealth [ ]Phone Confirmed 's location and phone number for virtual appointment. [ ]Yes [ ]N/A SESSION NUMBER: 12 ( seen for additional sessions than traditional course of tx within [facility] d/t ongoing changes in medical circumstances) RELEVANT HISTORICAL DEVELOPMENTS SINCE LAST CONTACT: - was dx'd with pulmonary hypertension INTERVENTION/TREATMENT PROVIDED [X] [place] [facility] [X] Shared [...] by Therapist: - Assessed sxs and fx'ing. Reports increase in anxiety/concerns r/t medical conditions s/t being dx'd with pulmonary hypertension. Believes this is the cause of experienced anergia. Mood sxs remain elevated, but appear stable. - Discussed dx of pulmonary hypertension. Assisted with processing related thoughts and feelings r/t medical conditions in general and new dx specifically. Provided with empathetic and supportive listening and appropriate validation. Assisted with challenging identified distorted cognitions. - Continued discussing discord within marital relationship. Continued assisting with processing related thoughts and feelings and assisting with challenging identified distorted cognitions. Continued providing with empathetic and supportive listening and appropriate validation. Reviewed communication strategies and encouraged ongoing use. - Reviewed stress/anxiety management strategies. - Reviewed mood management strategies. Reviewed importance of self-care and discussed strategies to assist with engagement. ASSESSMENT MEASURES USED: PHQ-9 not administered during today's encounter. Score = 10 (Q#9=0; Moderate range) when administered on May 04. BARRIE-7 not administered during today's encounter. Score = 4 (Mild range) when administered on May 04. [X]Functional/Symptom Assessment: Symptom(s)/Function(s) tracked by changes in frequency, intensity or duration since last visit: increased stress/anxiety s/t new medical dx, endorses hope and belief that will experience some relief once begins tx for d/o ROS: Sleep: ongoing Initial and Middle Insomnia Interest: continues to experience intermittent anhedonia Guilt: Continues to endorse occasional experience Energy: continues to endorse significant anergia Concentration: remains decreased at times Appetite: [...] GOAL/OBJECTIVES: increase physical fx'ing PROGRESS TOWARDS GOAL: continues to experience significant anergia, attributes to dx of pulmonary hypertension RESPONSE TO INTERVENTIONS: Veterans participation/engagement: [X]The participated actively in the current interventions. [ ]Other: The continues to consent to the current plan of care: Yes Comments: RISK ASSESSMENT: [X] CHANGES IN RISK FACTORS Related to Suicide or Homicide: new medical dx [place] did not report any current suicidal/homicidal ideation, plan, or intent. [place] did not appear to be at imminent risk for suicide or homicide at this time and is considered sustainable at the current level of care. -CLINICAL JUDGMENT AND DISPOSITION: [X] In consideration of relevant risk and protective factors, the [place] did NOT appear to be at imminent risk for suicide or homicide at this time and IS sustainable at the current level of care. -Comments: [place] was asked directly and denied SI/HI, to [...] [X] No changes to plan of care. [place] expressed agreement with therapy tasks and [id number] plan. RTC placed for f/u appt. /charly/ ANGELI BECERRIL, PH.D. Clinical Psychologist; [facility] Signed: 06/18/2024 10:47 ANGELI BECERRIL [facility]
--- OUTSIDE RECORDS SUMMARY | 2024-06-27 09:30 | XMS_ITS | Encounter Summary ---
Author Name [facility] Address [address] [place] [address] Care Team Providers Care Field Support Specialist Name Role Phone MCKENNA MATTHEWS Primary Care [...] PART A Feb 09, 2019 PART A [id number] ANA GANNON EPH PATIENT MEDICARE (WNR) MEDICARE (M) PART B Feb 09, 2019 PART B [id number] ANA GANNON EPH PATIENT MEDICARE (WNR) MEDICARE (M) PART A Feb 09, 2019 PART A [id number] ANA GANNON EPH PATIENT MEDICARE (WNR) MEDICARE (M) PART B Feb 09, 2019 PART B [id number] ANA GANNON PATIENT MEDICARE (WNR) MEDICARE (M) PART A Feb 09, 2019 PART A [id number] ANA GANNON EPH PATIENT MEDICARE (WNR) MEDICARE (M) PART B Feb 09, 2019 PART B [id number] [phone] ANA GANNON PATIENT MEDICARE PART D (WNR) MEDICARE (M) PART D Sep 11, 2019 PART D [id number] [phone] ANA GANNON PATIENT Selected Encounter This section includes the information on record at [place] for the Encounter. Date/Time Encounter Type Encounter Description Reason Provider Source Jun 27, 2024 02:30 PM OFFICE O/P EST LOW 20 MIN CARDIAC STRESS TEST ICD-10-CM R06.00 Dyspnea, unspecified JAQUELIN WALSH [place] Encounter Template Text not used by [place] Assessments - Encounter Diagnoses This section includes the primary and secondary diagnoses documented for the Encounter. Date/Time Primary/Secondary Diagnosis Diagnosis Name Provider Source Jun 27, 2024 03:35 PM PRIMARY Dyspnea, unspecified SCHWARTZ,CONRAD N [facility] Plan of Treatment: Future Appointments (+ 6 months) and Future Tests (+/- 45 days) The Plan of Treatment section includes future care activities for the patient from all [place] treatmentfacilities. This section includes future appointments and future orders which are active, pending or scheduled. Future Appointments This section includes appointments that were scheduled to occur 6 months from the date of the Encounter, up to a maximum of 20 appointments. The data comes from all [place] treatment facilities. Appointment Date/Time Appointment Type Appointme nt Facility Name Jul 05, 2024 11:15 AM AMBULATORY - MEDICINE [facility] Jul 18, 2024 09:15 AM AMBULATORY - NONE [facility] Jul 18, 2024 09:45 AM AMBULATORY - MEDICINE [facility] Jul 19, 2024 09:00 AM AMBULATORY - MEDICINE [facility] Aug 21, 2024 09:00 AM AMBULATORY - MEDICINE [facility] Aug 30, 2024 09:00 AM AMBULATORY - MEDICINE [facility] Sep 05, 2024 09:00 AM AMBULATORY - MEDICINE [facility] Sep 10, 2024 11:00 AM AMBULATORY - NONE [facility] Sep 18, 2024 02:00 PM AMBULATORY - MEDICINE [facility] Sep 19, 2024 09:00 AM AMBULATORY - SURGERY [facility] Sep 25, 2024 09:45 AM AMBULATORY - MEDICINE [facility] Oct 03, 2024 09:15 AM AMBULATORY - MEDICINE [facility] Oct 03, 2024 09:30 AM AMBULATORY - MEDICINE [facility] Oct 04, 2024 06:45 AM AMBULATORY - NONE [facility] Oct 04, 2024 07:00 AM AMBULATORY - MEDICINE [facility] Oct 08, 2024 02:20 PM AMBULATORY - MEDICINE [facility] Nov 18, 2024 10:00 AM AMBULATORY - REHAB MEDICIN E [facility] Nov 22, 2024 10:00 AM AMBULATORY - MEDICINE [facility] Nov 26, 2024 02:00 PM AMBULATORY - MEDICINE [facility] Dec 12, 2024 09:00 AM AMBULATORY - MEDICINE [facility] Lab Results: +/- 30 days of the encounter This section includes the Chemistry and Hematology Lab Results on record with [place] for the patient. Radiology Reports and Pathology Reports are provided separately, in subsequent sections. Lab Results This section contains the Chemistry/Hematology Results that were resulted 30 days before or 30 daysafter the date of the Encounter. Date/Time Source Result Type Result - Unit Interpretation Reference Range Specimen Type Comment Jul 18, 2024 08:51 AM [facility] RENAL PANEL PLASMA Specimen Type: PLASMA Comment: No hemolysis noted. Ordering Provider: FRANCISCO DAILY Report Released Date/Time: Sep 01, 2023 11:30 AM Reporting Lab: [facility] [address] [facility] [phone] Performing Lab: [place] [id number] [facility] [phone] CREATININE 1.92 mg/dL H 0.7-1.3 UREA NITROGEN 38.0 mg/dL H 9.0-25.0 GLUCOSE 92 mg/dL 72-99 SODIUM 138 meq/L 136-145 POTASSIUM 4.9 meq/L 3.5-5 CHLORIDE 110 meq/L H 98-107 CARBON DIOXIDE 18 meq/L L 22-31 CALCIUM 9.2 mg/dL 8.4-10.4 PHOSPHOROUS 3.6 mg/dL 2.3-4.7 ALBUMIN 3.4 g/dL 3.4-5 EGFR (CKD-EPI 2020) 37.0 >60 Jul 18, 2024 08:51 AM [facility] TACROLIMUS (STL-PB) BLOOD Specimen Type: BLOO D No comment entered. Ordering Provider: FRANCISCO DAILY Report Released Date/Time: Sep 01, 2023 11:30 AM Reporting Lab: [place] [address] Performing Lab: [place] [phone] TACROLIMUS (STL-PB) 3.1 ng/mL Jul 18, 2024 08:51 AM [facility] URINALYSIS (STL-PB) URINE Specimen Type: URIN E No comment entered. Ordering Provider: FRANCISCO DAILY Report Released Date/Time: Sep 01, 2023 11:30 AM Reporting Lab: [place] [address] Performing Lab: [place] [phone] URINE COLOR Light-Yellow Yellow U.BILIRUBIN Negative mg/dL Negative U.PH 6.0 5.0-8.0 APPEARANCE Clear Clear U.NITRITE Negative mg/dL Negative URN.GLUCOSE 70 mg/dL H Negative URN.PROTEIN Negative mg/dL URN.UROBILINOGEN Normal mg/dL Normal URN.BLOOD Negative mg/dL Negative-Trace URN.KETONES Negative mg/dL Negative-Trac e URN.LEUK.EST. Negative mg/dL Negative-Tr malu URN.SPECIFIC GRAVITY 1.014 Jul 18, 2024 08:51 AM [facility] CBC BLOOD Specimen Type: BLOOD No comment entered. Ordering Provider: FRANCISCO DAILY Report Released Date/Time: Sep 01, 2023 11:30 AM Reporting Lab: [facility] [address] [facility] [address] Performing Lab: [facility] [address] [facility] [phone] WBC 5.8 10*3/uL 3.6-11.2 RBC 3.93 10*6/uL [...] 0.00-0. 20 Jun 21, 2024 08:53 AM [facility] HGA1C BLOOD Specimen Type: BLOOD No comment entered. Ordering Provider: FRANCISCO DAILY Report Released Date/Time: Sep 01, 2023 11:30 AM Reporting Lab: [facility] [address] [facility] [address] Performing Lab: [address] [phone] HGA1C 8.0 H 4.0-6.0 Jun 21, 2024 08:53 AM [facility] TACROLIMUS (STL-PB) BLOOD Specimen Type: BLOO D No comment entered. Ordering Provider: FRANCISCO DAILY Report Released Date/Time: Sep 01, 2023 11:30 AM Reporting Lab: [facility] [address] [facility] [address] Performing Lab: [facility] [address] [place] [phone] TACROLIMUS (STL-PB) 6.7 ng/mL Jun 21, 2024 08:53 AM [facility] RENAL PANEL PLASMA Specimen Type: PLASM A Comment: No hemolysis noted. Ordering Provider: FRANCISCO DAILY Report Released Date/Time: Sep 01, 2023 11:30 AM Reporting Lab: [address] [phone] Performing Lab: [address] [address] CREATININE 1.95 mg/dL H 0.7-1.3 UREA NITROGEN 33.2 mg/dL H 9.0-25.0 GLUCOSE 136 mg/dL H 72-99 SODIUM 137 meq/L 136-145 POTASSIUM 4.8 meq/L 3.5-5 CHLORIDE 110 meq/L H 98-107 CARBON DIOXIDE 18 meq/L L 22-31 CALCIUM 9.3 mg/dL 8.4-10.4 PHOSPHOROUS 3.5 mg/dL 2.3-4.7 ALBUMIN 3.7 g/dL 3.4-5 EGFR (CKD-EPI 2020) 36.3 >60 Jun 21, 2024 08:53 AM [facility] URINALYSIS (STL-PB) URINE Specimen Type: URIN E No comment entered. Ordering Provider: FRANCISCO DAILY Report Released Date/Time: Sep 01, 2023 11:30 AM Reporting Lab: [place] [id number] [facility] [address] Performing Lab: [address] [phone] URINE COLOR Light-Yellow Yellow U.BILIRUBIN Negative mg/dL [...] GRAVITY 1.016 Jun 21, 2024 08:[address] [facility] CBC BLOOD Specimen Type: BLOOD No comment entered. Ordering Provider: FRANCISCO DAILY Report Released Date/Time: Sep 01, 2023 11:30 AM Reporting Lab: [facility] [address] [facility] [phone] Performing Lab: [facility] [address] [facility] [phone] WBC 6.2 10*3/uL 3.6-11.2 RBC 4.18 10*6/uL [...] 0.60 BASOPHILS, ABSOLUTE 0.07 10*3/uL 0.00-0. 20 Social History: Smoking Status (Most current) and Tobacco Use (All prior to encounter date) This section includes the most current, and the historical, smoking and tobacco- related health factors from the [place] facility where the Encounter took place. Current Smoking Status This section includes the most current smoking, or tobacco-related health factor, from the [place] facility where the Encounter took place. Date/Time Current Smoking Status Comment Jg ity Apr 12, 2024 02:09 PM VA-TOBACCO NEVER USED [facility] Tobacco Use History This section includes a history of the smoking, or tobacco-related health factors, that were collected on or before the date of the Encounter. The data comes from the [place] facility where the Encounter took place. Date/Time Smoking Status/Tobacco Use Comment F acility Nov 07, 2022 01:35 PM VA-TOBACCO NEVER USED [facility] Mar 17, 2021 07:44 PM ORYX ADMIT TOBACCO SCREEN NO [facility] Dec 18, 2020 11:14 PM VA-TOBACCO NEVER USED [facility] Dec 18, 2020 08:23 PM ORYX ADMIT TOBACCO SCREEN NO [facility] Nov 14, 2006 01:52 PM LIFETIME NON-USER OF TOBACCO [facility] Nov 22, 2005 02:20 PM LIFETIME NON-TOBACCO USER [facility] Dec 08, 2004 01:37 PM LIFETIME NON-TOBACCO USER [facility] Jul 28, 2004 01:13 PM LIFETIME NON-TOBACCO USER [facility] Jul 09, 2003 01:05 PM LIFETIME NON-TOBACCO USER [facility] Jun 26, 2002 02:05 PM LIFETIME NON-TOBACCO USER [facility] May 23, 2001 01:12 PM LIFETIME NON-TOBACCO USER [facility] Jun 14, 2000 01:24 PM LIFETIME NON-TOBACCO USER [facility] Pathology Reports: +/- 30 days [...] the Encounter. The data comes from all [place] treatment facilities. Date/Time Pathology Report Provider Source [...] Performing Laboratory: Surgical Pathology Report Performed By: [facility] [address] [place] [address]# [id number] [address] [place] [phone] $FTR - - - - - - - - - - - - - - - - - - - - - - - - - - - - - - - - - - - - - - - - (End of report) JAVIER HOFF MD [facility] Date Jul 08, 2024 - - - - - - - - - - - - - - - - - - - - - - - - - - - - - - - - - - - - - - - - DAT GANNON STANDARD FORM 515 ID:[id number] SEX:M :1955 AGE: 69 LOC:GILABA2 PCP: Mckenna Matthews MD /charly/ JAVIER HOFF Pathologist Signed: 07/08/2024 15:14 JAVIER HOFF [facility] Encounter Notes: All associated encounter notes This section contains the clinical notes associated to the Encounter. Date/Time Encounter Note(s) Provider Source Jun 27, 2024 03:04 PM CARDIOLOGY PROCEDU RE NOTE: LOCAL TITLE: CARDIOLOGY PROCEDURE REPORT STL STANDARD TITLE: CARDIOLOGY PROCEDURE NOTE DATE OF NOTE: JUN 27, 2024@15:04 ENTRY DATE: JUN 27, 2024@15:04:24 AUTHOR: DEMARIO JIANG EXP COSIGNER: URGENCY: STATUS: COMPLETED STRESS TEST PROCEDURE NOTE Patient brought into the stress lab and prepped for the stress test at 1400 Baseline ECG obtained and given to Dr Schwartz for review Pt underwent Arm ergometer exercise per A16a1 protocol Complications: NONE Stress ECG transferred to MUSE system: Y Stress ECG given to Dr. Schwartz for review at the end of the test Patient discharged from stress lab in stable condition See MD note for further details. /charly/ DEMARIO JIANG [facility] [[email or web address]] Stress Reuse Technician Signed: 06/27/2024 15:05 DEMARIO JIANG [facility] Jun 27, 2024 02:21 PM CARDIOLOGY DIAGNOS TIC STUDY NOTE: LOCAL TITLE: STRESS TEST PROCEDURE STANDARD TITLE: CARDIOLOGY DIAGNOSTIC STUDY NOTE DATE OF NOTE: JUN 27, 2024@14:21 ENTRY DATE: JUN 27, 2024@14:21:51 AUTHOR: CONRAD SCHWARTZ EXP COSIGNER: JAQUELIN WALSH URGENCY: STATUS: COMPLETED STRESS TEST PROCEDURE NOTE Vitals Pulse: 66 (06/13/2024 08:56) BP: 115/65 (06/13/2024 08:56) RESP: 18 (06/13/2024 08:56) Height: 72 in [182.9 cm] (03/21/2024 08:55) Weight: 226 lb [102.51 kg] (06/13/2024 08:56) Referring provider: THI GAN Reason for consult: Dyspnea and exercise intolerance. STress test for functional capacity Patients chart is reviewed. History is taken from the patient. 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 . Patient reports fatigue and tiredness for the past 1 year which has been worsening over the past 3 months. He also endorses dyspnea with exertion and reduced exercise tolerance. Denies PND/orthopnea. Denies chest pain but endorses some fluttering senstaion in his chest 'one off'. Had a syncope which was preceeded by lightheadedness 6 weeks ago while doing laundry. Does endorse some LH on sudden movements/standing. Denies palpitations, worsenign leg edema (has chronic lymphedema at baseline) Today, at rest, he has no acute complaints. No chest pain, dyspnea or lightheadedness. Cardiac Hx: Yes. SSS s/p [employer] dual chamber PPM(12/19/2018), Paroxysmal AFib s/p DCCV (12/19/2018), Nonobstructive CAD 05/09/23 TTE 05/2024 with mild LVH, LVEf 55-60%, Gr1DDF, mod pHTN (PASP 55mmHg), mild RVE with borderline RVSF, positive bubble study with valsalva only. PAST MEDICAL HISTORY 1) Diabetic nephropathy (SNOMED CT 186839400) 2) Ulcer of lower Limb, unspecified (ICD-9-CM 707.10) 3) Erectile dysfunction due to diabetes mellitus (SNOMED CT 756940091) 4) Anemia in Chronic Kidney Disease (ICD-9-CM 285.21) 5) HTN - Hypertension (SNOMED CT 56150878) 6) GERD * (ICD-9-CM 530.81) 7) Acidosis, metabolic NEC (ICD-9-CM 276.2) 8) Diabetic nephropathy (SNOMED CT 660281467) 9) Hypertensive chronic kidney disease, unspecified, with chronic kidney disease St 10) History of - kidney recipient (SNOMED CT 315139543) 11) Other Fluid Overload (ICD-9-CM 276.69) 12) Anticoagulant effect 13) Insulin pump present 14) Sinus bradycardia 15) Permanent cardiac pacemaker 16) Therapeutic drug effect 17) Acute osteomyelitis of foot 18) History of venous thrombosis 19) Postthrombotic syndrome 20) Sleep apnea 21) Lack of exercise 22) Coronary artery disease 23) Osteopenia 24) Patent foramen ovale CURRENT MEDICATIONS Active Outpatient Medications (including Supplies): Active Outpatient [...] NEEDED FOR LOW BLOOD SUGAR 10) GLUCOSE 4GM CHEW TAB CHEW AND SWALLOW FOUR TABLETS BY ACTIVE MOUTH NEEDED FOR LOW BLOOD SUGAR REPEAT DOSE IF HYPOGLYCEMIA CONTINUES 15 MINUTES AFTER THE FIRST DOSE. 11) GLUCOSE SENSOR (4) GUARDIAN [id number] USE 1 SENSOR ACTIVE UNDER THE SKIN EVERY WEEK FOR BLOOD SUGAR MONITORING 12) INSULIN,ASPART,HUMAN 100 UNIT/ML (PUMP) INJECT ACTIVE BASAL/BOLUS INSULIN UNDER THE SKIN CONTINUOUS VIA PUMP FOR DIABETES - INFUSING THRU PATIENT'S ATTACHED INSULIN PUMP 13) LISINOPRIL 40MG TAB TAKE ONE TABLET BY MOUTH ONCE A ACTIVE DAY FOR HEART OR BLOOD PRESSURE 14) METOPROLOL TARTRATE 100MG TAB TAKE ONE TABLET BY ACTIVE MOUTH TWICE A DAY FOR HEART/BLOOD PRESSURE. TAKE WITH OR IMMEDIATELY FOLLOWING FOOD. NEW DOSE 15) OMEPRAZOLE 40MG EC CAP TAKE ONE CAPSULE BY MOUTH ACTIVE EVERY MORNING BEFORE A MEAL TO LOWER STOMACH ACID. TAKE 30 MINUTES PRIOR TO FOOD. 16) PREDNISONE 5MG TAB TAKE ONE TABLET BY MOUTH EVERY ACTIVE MORNING WITH FOOD 17) RESERVOIR,MINIMED #MMT-332A USE 1 RESERVOIR EVERY ACTIVE THREE (3) DAYS FOR DIABETES WITH INSULIN PUMP 18) SET,INFUSION MINIMED #MMT-396 USE 1 SET FOR UNDER THE ACTIVE SKIN EVERY THREE (3) DAYS FOR INFUSION SET TO BE USED WITH INSULIN PUMP. 19) SODIUM BICARBONATE 650MG TAB TAKE TWO TABLETS BY ACTIVE MOUTH TWICE A DAY 20) TACROLIMUS 1MG CAP TAKE TWO CAPSULES BY MOUTH EVERY ACTIVE MORNING AND TAKE ONE CAPSULE EVERY EVENING TO PREVENT TRANSPLANT REJECTION 21) TAMSULOSIN HCL 0.4MG CAP TAKE TWO CAPSULES BY MOUTH ACTIVE EVERY EVENING APPROXIMATELY 30 MINUTES AFTER THE SAME MEAL EACH DAY (FOR PROSTATE) 22) VENLAFAXINE HCL 37.5MG 24HR SA CAP TAKE TWO CAPSULES ACTIVE BY MOUTH ONCE A DAY WITH FOOD. DO NOT ABRUPTLY DISCONTINUE MEDICATION. All meds were reviewed with patient. Allergy: MORPHINE OTHER HISTORY FAMILY HISTORY: No premature coronary disease or sudden SOCIAL HISTORY: TOBACCO: Never smoker ALCOHOL: One beer a year at most DRUGS: Denies REVIEW OF SYSTEMS Review of systems: All 14 systems reviewed are negative except as noted in HPI. OBJECTIVE/DATA PHYSICAL EXAM Vitals as above General: NAD HEENT: normocephalic, JVP not elevated Neck: Supple, non-tender Cardiac: RRR, normal S1/S2, no m/r/g Pulm: CTAB, normal work of breathing Abdomen: soft, NTND, no organomegaly Extremities: Warm, non pitting edema right leg, compression stocks bilaterally Neurologic: No gross focal deficits, spontaneously moving all extremities. Skin: warm, dry DIAGNOSTIC DATA CBC WBC:6.2 10*3/uL (06/21/24 08:53) Hgb:HGB 12.8 L g/dL 06/21/2024 08:53 HCT:37.9 % L (06/21/24 08:53) PLT:PLT 172 10*3/uL 06/21/2024 08:53 Chem 7 GLUCOSE 136 H mg/dL 06/21/2024 08:53 BUN: 33.2 mg/dL H (06/21/24 08:53) CREATININE 1.95 H mg/dL 06/21/2024 08:53 SODIUM 137 mEq/L 06/21/2024 08:53 POTASSIUM 4.8 mEq/L 06/21/2024 08:53 CHLORIDE 110 mEq/L H (06/21/24 08:53) CARBON DIOXIDE 18 L mEq/L 06/21/2024 08:53 ------- ASSESSMENT AND PLAN Pt with RF and no current angina equivalent. Will proceed with stress test. ------- CONSENT FOR STRESS TESTING The rationale, expected symptoms of stress test and complications attributable to stress test were elaborated and discussed with the patient. All questions were addressed. Patient acknowledged understanding of the issues discussed. Informed consent was obtained. ------- EXERCISE: Arm-Crank Rest SAO2: 93% Peak SAO2: 96% RESULTS OF EXERCISE TEST SUMMARY ECG ECG at baseline: NSR. No ST-T changes. ST Segment Changes with exercise: NO Dysrhythmias: NO Complications: NO Reason for Stopping: Fatigue ------- ARM CRANK Peak workload (Srinivasan): 64 Peak calculated VO2 (mL/kg): 11 Peak METs: 3.1 Treadmill equivalent values Peak VO2 (mL/kg/min): 18.3 Peak METs: 5.2 % of the age/gender adjusted VO2 Max of Healthy Sedentary Population: 73% Peak HR: 139 % of age predicted Peak HR: 92% HR in recovery 1 Min: 115 2 Min: 80 ------- 1. Exercise capacity: Poor 2. DTS = +4.0 consistent with medium risk of future CV events (95% survival at 5 years) 3. BP response: Normal Baseline: 97/50 Peak: 201/81 ------- CONCLUSIONS - Maximal exercise stress test. - No ischemic ECG changes at achieved workload. - No symptoms of angina or anginal equivalent. - Borderline low BP at baseline. Normal BP response to exercise. - Poor functional capacity. - Normal deceleration in recovery (Normal values are minute 1 = 12 bpm or more, Minute 2 = 22bpm or more) -Stress ECG portion results discussed with the patient at the end of the test. The results of the stress test were discussed with the patient. The patient was informed that a NEGATIVE stress test does not exclude presence of atherosclerosis, particularly non-obstructive coronary stenoses (minor coronary blockages). The patient was advised that some of these minor blockages may rupture, occasionally resulting in heart attack. The patient acknowledged understanding of the issues discussed. The patient left the Stress Test Lab in stable condition with NO symptoms. ------- ======= SUMMARY ======= -Non-ischemic ECG stress portion. -Poor functional capacity Recommendations: -We discussed accurate blood pressure measurement at home. Recommended to keep a home BP log and discuss medication adjustment with primary care physician given borderline low blood pressure at baseline with history of postural lightheadness at home. ------- /charly/ CONRAD SCHWARTZ pricing specialist Signed: 06/27/2024 15:35 /charly/ Jaquelin Walsh MD, FACC, FACP STAFF PHYSICIAN - Cardiology Cosigned: 06/30/2024 23:52 CONRAD SCHWARTZ [facility]
--- OUTSIDE RECORDS SUMMARY | 2024-07-05 06:15 | XMS_ITS | Encounter Summary ---
Author Name [facility] [place] [facility] [place] [facility] [facility] [place] Address [address] [place] [address] Care Team Providers Care Apartment Maintenance Name Role Phone MCKENNA MATTHEWS Primary Care [...] PART A Feb 09, 2019 PART A [id number] [phone] ANA GANNON EPH PATIENT MEDICARE (WNR) MEDICARE (M) PART B Feb 09, 2019 PART B [id number] ANA GANNON EPH PATIENT MEDICARE (WNR) MEDICARE (M) PART A Feb 09, 2019 PART A [id number] ANA GANNON EPH PATIENT MEDICARE (WNR) MEDICARE (M) PART B Feb 09, 2019 PART B [id number] ANA GANNON PATIENT MEDICARE (WNR) MEDICARE (M) PART B Feb 09, 2019 PART B [id number] ANA GANNON PATIENT MEDICARE (WNR) MEDICARE (M) PART A Feb 09, 2019 PART A [id number] ANA GANNON PATIENT MEDICARE PART D (WNR) MEDICARE (M) PART D Sep 11, 2019 PART D [id number] [phone] ANA GANNON PATIENT Selected Encounter This section includes the information on record at [place] for the Encounter. Date/Time Encounter Type Encounter Description Reason Provider Source Jul 05, 2024 11:15 AM COLONOSCOPY AND BIOPSY GI ENDOSCOPY ICD-10-CM R19.7 Diarrhea, unspecified Terese JUAREZ Suzette Encounter Template Text not used by [place] Assessments - Encounter Diagnoses This section includes the primary and secondary diagnoses documented for the Encounter. Date/Time Primary/Secondary Diagnosis Diagnosis Name Provider Source Jul 26, 2024 10:27 AM PRIMARY Diarrhea, unspecified THOM JUAREZ [facility] Jul 26, 2024 10:27 AM SECONDARY Benign neoplasm of ascending colon THOM JUAREZ [facility] Jul 26, 2024 10:27 AM SECONDARY Benign [facility]oplasm of descending [facility] Jul 26, 2024 10:27 AM SECONDARY Benign neoplasm of transverse colon THOM JUAREZ [facility] Jul 26, 2024 10:27 AM SECONDARY Personal history of other colon polyps THOM JUAREZ [facility] Plan of Treatment: Future Appointments (+ 6 months) and Future Tests (+/- 45 days) The Plan of Treatment section includes future care activities for the patient from all [place] treatmentfacilities. This section includes future appointments and future orders which are active, pending or scheduled. Future Appointments This section includes appointments that were scheduled to occur 6 months from the date of the Encounter, up to a maximum of 20 appointments. The data comes from all [place] treatment facilities. Appointment Date/Time Appointment Type Appointme nt Facility Name Jul 18, 2024 09:15 AM AMBULATORY - NONE [facility] Jul 18, 2024 09:45 AM AMBULATORY - MEDICINE [facility] Jul 19, 2024 09:00 AM AMBULATORY - MEDICINE [facility] Aug 21, 2024 09:00 AM AMBULATORY - MEDICINE [facility] Aug 30, 2024 09:00 AM AMBULATORY - MEDICINE [facility] Sep 05, 2024 09:00 AM AMBULATORY - MEDICINE [facility] Sep 10, 2024 11:00 AM AMBULATORY - NONE [facility] Sep 18, 2024 02:00 PM AMBULATORY - MEDICINE [facility] Sep 19, 2024 09:00 AM AMBULATORY - SURGERY [facility] Sep 25, 2024 09:45 AM AMBULATORY - MEDICINE [facility] Oct 03, 2024 09:15 AM AMBULATORY - MEDICINE [facility] Oct 03, 2024 09:30 AM AMBULATORY - MEDICINE [facility] Oct 04, 2024 06:45 AM [facility] Oct 04, 2024 07:00 AM AMBULATORY - MEDICINE [facility] Oct 08, 2024 02:20 PM AMBULATORY - MEDICINE [facility] Nov 18, 2024 10:00 AM AMBULATORY - REHAB MEDICIN E [facility] Nov 22, 2024 10:00 AM AMBULATORY - MEDICINE [facility] Nov 26, 2024 02:00 PM AMBULATORY - MEDICINE [facility] Dec 12, 2024 09:00 AM AMBULATORY - MEDICINE [facility] Dec 26, 2024 12:45 PM AMBULATORY - MEDICINE [facility] Lab Results: +/- 30 days of [...] Type Comment Jul 18, 2024 08:51 AM [facility] TACROLIMUS (STL-PB) BLOOD Specimen Type: BLOOD No comment entered. Ordering Provider: FRANCISCO DAILY Report Released Date/Time: Sep 01, 2023 11:30 AM Reporting Lab: [address] [phone] Performing Lab: [place] [address] TACROLIMUS (STL-PB) 3.1 ng/mL Jul 18, 2024 08:51 AM [facility] URINALYSIS (STL-PB) URINE Specimen Type: URIN E No comment entered. Ordering Provider: FRANCISCO DAILY Report Released Date/Time: Sep 01, 2023 11:30 AM Reporting Lab: [address] [address] Performing Lab: [address] [address] URINE COLOR Light-Yellow Yellow U.BILIRUBIN Negative mg/dL Negative U.PH 6.0 5.0-8.0 APPEARANCE Clear Clear U.NITRITE Negative mg/dL Negative URN.GLUCOSE 70 mg/dL H Negative URN.PROTEIN Negative mg/dL URN.UROBILINOGEN Normal mg/dL Normal URN.BLOOD Negative mg/dL Negative-Trace URN.KETONES Negative mg/dL Negative-Trac e URN.LEUK.EST. Negative mg/dL Negative-Tr malu URN.SPECIFIC GRAVITY 1.014 Jul 18, 2024 08:51 AM [facility] RENAL PANEL PLASMA Specimen Type: PLASM A Comment: No hemolysis noted. Ordering Provider: FRANCISCO DAILY Report Released Date/Time: Sep 01, 2023 11:30 AM Reporting Lab: [address] [address] Performing Lab: [address] [address] CREATININE 1.92 mg/dL H 0.7-1.3 UREA NITROGEN 38.0 mg/dL H 9.0-25.0 GLUCOSE 92 mg/dL 72-99 SODIUM 138 meq/L 136-145 POTASSIUM 4.9 meq/L 3.5-5 CHLORIDE 110 meq/L H 98-107 CARBON DIOXIDE 18 meq/L L 22-31 CALCIUM 9.2 mg/dL 8.4-10.4 PHOSPHOROUS 3.6 mg/dL 2.3-4.7 ALBUMIN 3.4 g/dL 3.4-5 EGFR (CKD-EPI 2020) 37.0 >60 Jul 18, 2024 08:51 AM [facility] CBC BLOOD Specimen Type: BLOOD No comment entered. Ordering Provider: FRANCISCO DAILY Report Released Date/Time: Sep 01, 2023 11:30 AM Reporting Lab: [address] [address] Performing Lab: [address] [address] WBC 5.8 10*3/uL 3.6-11.2 RBC 3.93 10*6/uL [...] 0.00-0. 20 Jun 21, 2024 08:53 AM [facility] HGA1C BLOOD Specimen Type: BLOOD No comment entered. Ordering Provider: FRANCISCO DAILY Report Released Date/Time: Sep 01, 2023 11:30 AM Reporting Lab: [address] [address] Performing Lab: [address] [address] HGA1C 8.0 H 4.0-6.0 Jun 21, 2024 08:53 AM [facility] TACROLIMUS (STL-PB) BLOOD Specimen Type: BLOO D No comment entered. Ordering Provider: FRANCISCO DAILY Report Released Date/Time: Sep 01, 2023 11:30 AM Reporting Lab: [address] [address] Performing Lab: [address] [address] TACROLIMUS (STL-PB) 6.7 ng/mL Jun 21, 2024 08:53 AM [facility] RENAL PANEL PLASMA Specimen Type: PLASM A Comment: No hemolysis noted. Ordering Provider: FRANCISCO DAILY Report Released Date/Time: Sep 01, 2023 11:30 AM Reporting Lab: [address] [address] Performing Lab: [address] [address] CREATININE 1.95 mg/dL H 0.7-1.3 UREA NITROGEN 33.2 mg/dL H 9.0-25.0 GLUCOSE 136 mg/dL H 72-99 SODIUM 137 meq/L 136-145 POTASSIUM 4.8 meq/L 3.5-5 CHLORIDE 110 meq/L H 98-107 CARBON DIOXIDE 18 meq/L L 22-31 CALCIUM 9.3 mg/dL 8.4-10.4 PHOSPHOROUS 3.5 mg/dL 2.3-4.7 ALBUMIN 3.7 g/dL 3.4-5 EGFR (CKD-EPI 2020) 36.3 >60 Jun 21, 2024 08:53 AM [facility] URINALYSIS (STL-PB) URINE Specimen Type: URIN E No comment entered. Ordering Provider: FRANCISCO DAILY Report Released Date/Time: Sep 01, 2023 11:30 AM Reporting Lab: [address] [address] Performing Lab: [address] [address] URINE COLOR Light-Yellow Yellow U.BILIRUBIN Negative mg/dL [...] GRAVITY 1.016 Jun 21, 2024 08:53 AM [facility] CBC BLOOD Specimen Type: BLOOD No comment entered. Ordering Provider: FRANCISCO DAILY Report Released Date/Time: Sep 01, 2023 11:30 AM Reporting Lab: [place] [id number] Performing Lab: [address] [address] WBC 6.2 10*3/uL 3.6-11.2 RBC 4.18 10*6/uL [...] and tobacco- related health factors from the [facility] where the Encounter took place. Current Smoking Status This section includes the most current smoking, or tobacco-related health factor, from the [place] facility where the Encounter took place. Date/Time Current Smoking Status Comment Facil ity Apr 12, 2024 02:09 PM VA-TOBACCO NEVER USED [facility] Tobacco Use History This section includes a history of the smoking, or tobacco-related health factors, that were collected on or before the date of the Encounter. The data comes from the [facility] where the Encounter took place. Date/Time Smoking Status/Tobacco Use Comment F acility Nov 07, 2022 01:35 PM VA-TOBACCO NEVER USED [facility] Mar 17, 2021 07:44 PM ORYX ADMIT TOBACCO SCREEN NO [facility] Dec 18, 2020 11:14 PM VA-TOBACCO NEVER USED [facility] Dec 18, 2020 08:23 PM ORYX ADMIT TOBACCO SCREEN NO [facility] Nov 14, 2006 01:52 PM LIFETIME NON-USER OF TOBACCO [facility] Nov 22, 2005 02:20 PM LIFETIME NON-TOBACCO USER [facility] Dec 08, 2004 01:37 PM LIFETIME NON-TOBACCO USER [facility] Jul 28, 2004 01:13 PM LIFETIME NON-TOBACCO USER [facility] Jul 09, 2003 01:05 PM LIFETIME NON-TOBACCO USER [facility] Jun 26, 2002 02:05 PM LIFETIME NON-TOBACCO USER [facility] May 23, 2001 01:12 PM LIFETIME NON-TOBACCO USER [facility] Jun 14, 2000 01:24 PM LIFETIME NON-TOBACCO USER [facility] Pathology Reports: +/- 30 days of the [...] the Encounter. The data comes from all [facility] facilities. Date/Time Pathology Report Provider Source Jul [...] - - - POSTOPERATIVE DIAGNOSIS: Surgeon/physician: OLVIN JUAREZ MD =-=-=-=-=-=-=-=-=-=-=-=-=-= -=-=-=-=-=-=-=-=-=-=-=-=-=- =-=-=-=-=-=-=-=-=-=-=-=-= - - - [...] COLON, TRANSVERSE, POLYP, BIOPSY: FOCAL HYPERPLASTIC CHANGES /es/ JAVIER HOFF Pathologist Signed Jul 08, 2024@15:14 Performing Laboratory: Surgical Pathology Report Performed By: [facility] [address] [id number] [address] [place] [phone] $FTR - - - - - - - - - - - - - - - - - - - - - - - - - - - - - - - - - - - - - - - - (End of report) JAVIER HOFF MD [facility] Date Jul 08, 2024 - - - - - - - - - - - - - - - - - - - - - - - - - - - - - - - - - - - - - - - - JC GANNON FORM 515 ID:[id number] SEX:M :1955 AGE: 69 LOC:GILABA2 PCP: Mckenna Matthews MD /charly/ JAVIER HOFF Pathologist Signed: 07/08/2024 15:14 JAVIER HOFF [facility] Encounter Notes: All associated encounter notes This section contains the clinical notes associated to the Encounter. Date/Time Encounter Note(s) Provider Source Jul 09, 2024 03:28 PM GASTROENTEROLOGY LETTERS: LOCAL TITLE: GI BIOPSY RESULTS LETTER STANDARD TITLE: GASTROENTEROLOGY LETTERS DATE OF NOTE: JUL 09, 2024@15:28 ENTRY DATE: JUL 09, 2024@15:28:24 AUTHOR: OLVIN JUAREZ COSIGNER: URGENCY: STATUS: COMPLETED [facility] [address] [place] [address] JUL 09, 2024 JC GANNON [address] [facility] [place], [place] [address] Dear Jc Gannon, Thank you for completing your colonoscopy recently at [facility]. I am writing to give you the pathology results for the tissue removed during the procedure. The tissue removed included: One or more Advanced Adenoma. Adenomatous (pre-cancerous) polyps are the most common type of polyp. Most of these polyps do NOT develop into cancer, but they do have the potential to become malignant over several years which is why they are most often removed. The random colon biopsies and small intestinal biopsies showed no evidence of inflammation. After reviewing your results I recommend you complete a follow-up colonoscopy in 6 months. Please contact your primary care team if it is time for your colonoscopy and the test has not been scheduled. If you want to see the full pathology report, you may do this by logging on the [employer] website at www.[email or web address].[place].gov. If you have not already done so, I recommend you visit this web site to set up your account. You will then be able to review this result and all future results. Please call [phone] if you have any questions about this letter. Sincerely, OLVIN JUAREZ Gastroenterology OLVIN JUAREZ [facility] Jul 08, 2024 07:34 PM ADDENDUM: LOCAL TITLE: Addendum STANDARD TITLE: ADDENDUM DATE OF NOTE: JUL 08, 2024@19:34 ENTRY DATE: JUL 08, 2024@19:34:01 AUTHOR: OLVIN JUAREZ COSIGNER: URGENCY: STATUS: COMPLETED GI note Agree with recs. Appreciate you discussing with the patient. Called in a prescription based hemorrhoid cream that he can sweet pickle maker tomorrow. Thanks/JUAN /charly/ OLVIN JUAREZ Gastroenterology Signed: 07/08/2024 19:36 Receipt Acknowledged By: 07/09/2024 07:58 /charly/ MELVINA WYNNE RN REGISTERED NURSE --- Original Document --- 07/08/24 [facility] GASTROENTEROLOGY TELEPHONE NOTE STL: called my direct extension this AM with complaints of inflamed and irritated hemorrhoids since his colonoscopy on Monday07/05/24. [place] states he has attempted over the counter medications as well as soaking in a hot bath and feels if anything they have only gotten worse, and this has never happened after a colonoscopy before and I have had hemorrhoids for a long time. Assured the this is common after a colonoscopy, that he did the right thing attempting OTC medication and soaking. He has had bowel movements post colonoscopy. Recommending he avoid sitting for long periods of time, especially on the toilet, avoid lifting heavy objects, drink plenty of water and eat high fiber foods, and I will notify Dr. Juarez. Informed the either myself or Dr. Juaerz will call back with his recommendations. verbally expressed appreciation and understanding. /charly/ MELVINA WYNNE RN REGISTERED NURSE Signed: 07/08/2024 07:47 Receipt Acknowledged By: 07/08/2024 19:33 /charly/ OLVIN JUAREZ Gastroenterology 07/09/2024 ADDENDUM STATUS: UNSIGNED You may not VIEW this UNSIGNED Addendum. OLVIN JUAREZ [facility] Jul 08, 2024 07:42 AM GASTROENTEROLOGY TELEPHONE ENCOUNTER NOTE: LOCAL TITLE: [facility] GASTROENTEROLOGY TELEPHONE NOTE ST STANDARD TITLE: GASTROENTEROLOGY TELEPHONE ENCOUNTER NOTE DATE OF NOTE: JUL 08, 2024@07:42 ENTRY DATE: JUL 08, 2024@07:42:05 AUTHOR: MELVINA NEUMANN EXP COSIGNER: URGENCY: STATUS: COMPLETED [facility] GASTROENTEROLOGY TELEPHONE NOTE STL Has ADDENDA [place] called my direct extension this AM with complaints of inflamed and irritated hemorrhoids since his colonoscopy on Monday07/05/24. states he has attempted over the counter medications as well as soaking in a hot bath and feels if anything they have only gotten worse, and this has never happened after a colonoscopy before and I have had hemorrhoids for a long time. Assured the this is common after a colonoscopy, that he did the right thing attempting OTC medication and soaking. He has had bowel movements post colonoscopy. Recommending he avoid sitting for long periods of time, especially on the toilet, avoid lifting heavy objects, drink plenty of water and eat high fiber foods, and I will notify Dr. Juarez. Informed the either myself or Dr. Juarez will call back with his recommendations. [place] verbally expressed appreciation and understanding. /charly/ MELVINA WYNNE RN REGISTERED NURSE Signed: 07/08/2024 07:47 Receipt Acknowledged By: 07/08/2024 19:33 /charly/ OLVIN JUAREZ Gastroenterology 07/08/2024 ADDENDUM STATUS: COMPLETED GI note Agree with recs. Appreciate you discussing with the patient. Called in a prescription based hemorrhoid cream that he can sweet pickle maker tomorrow. Thanks/JUAN /charly/ OLVIN JUAREZ Gastroenterology Signed: 07/08/2024 19:36 Receipt Acknowledged By: 07/09/2024 07:58 /charly/ MELVINA WYNNE RN REGISTERED NURSE 07/09/2024 ADDENDUM STATUS: COMPLETED Called and notified that Dr. Juarez placed order for prescription strength hemorrhoid cream to be mailed. Reinforced not sitting for long periods of time, not sitting to long on the toilet, avoid heavy lifting/straining, ensure adequate hydration/dietary fiber intake. Instructed to use medication as directed and if no improvement after 1 week to call my direct extension. verbalized understanding and appreciation. /charly/ MELVINA NEUMANN BSN RN REGISTERED NURSE Signed: 07/09/2024 08:01 07/09/2024 ADDENDUM STATUS: COMPLETED GI note Called and spoke to the patient. He is doing better. Sitz baths and topical witchhazel. Sent in Rx for topical Rx. Asked to call if no better in one week. Thanks/JUAN /charly/ OLVIN JUAREZ Gastroenterology Signed: 07/09/2024 15:14 MELVINA NEUMANN [facility] Jul 05, 2024 12:34 PM PREPROCEDURE NOTE: LOCAL TITLE: PHYSICIAN PRE-PROCEDURE ASSESSMENT ST STANDARD TITLE: PREPROCEDURE NOTE DATE OF NOTE: JUL 05, 2024@12:34 ENTRY DATE: JUL 05, 2024@12:34:29 AUTHOR: DONATO SAGE EXP COSIGNER: OLVIN JUAREZ URGENCY: STATUS: COMPLETED Airway: Other/comment: Mallampati Score: 2 Neck Extension: Not Limited Teeth: Other/comment: Cardiac: Other/comment: SSS s/p PPM, recurrent DVTs on ELiquis. Last dose >48h Pulmonary: Other/comment: Gastrointestinal: Other/comment: Neurological: Other/comment: ASA Score: 3 Abdominal and Pelvic Surgical History: Kidney transplant Sedation/Anesthesia Plan: Anesthesia consult History of previous adverse reaction to sedation: No Tobacco use: No Alcohol use: No Recreational drug use: No Last oral intake:>2h Time spent:0-5 minutes /charly/ Jere Sage MD PGY-4 GASTROENTEROLOGY FELLOW Signed: 07/05/2024 15:58 /kaylyn JUAREZ Gastroenterology Cosigned: 07/05/2024 16:36 DONATO SAGE [facility]
--- OUTSIDE RECORDS SUMMARY | 2024-07-05 06:45 | XMS_ITS ---
Author Name [facility] Organization [facility] Address [address] [place] [address] Care Team Providers Care Irs Agent Name Role Phone MCKENNA MATTHEWS Primary Care [...] PART A Feb 09, 2019 PART A [id number] ANA GANNON EPH PATIENT MEDICARE (WNR) MEDICARE (M) PART B Feb 09, 2019 PART B [id number] ANA GANNON EPH PATIENT MEDICARE (WNR) MEDICARE (M) PART A Feb 09, 2019 PART A [id number] ANA GANNON EPH PATIENT MEDICARE (WNR) MEDICARE (M) PART B Feb 09, 2019 PART B [id number] ANA GANNON PATIENT MEDICARE (WNR) MEDICARE (M) PART A Feb 09, 2019 PART A [id number] ANA GANNON EPH PATIENT MEDICARE (WNR) MEDICARE (M) PART B Feb 09, 2019 PART B [id number] [phone] ANA GANNON PATIENT MEDICARE PART D (WNR) MEDICARE (M) PART D Sep 11, 2019 PART D [id number] ANA GANNON PATIENT Selected Encounter This section includes the information on record at OR for the Encounter. Date/Time Encounter Type Encounter Description Reason Provider Source Jul 05, 2024 11:45 AM OFFICE O/P EST MOD 30 MIN ANESTHESIA PRE/POST-OP CONSULT ICD-10-CM Z01.818 Encounter for other preprocedural examination VITO WASHBURN Suzette Encounter Template Text not used by OR Assessments - Encounter Diagnoses This section includes the primary and secondary diagnoses documented for the Encounter. Date/Time Primary/Secondary Diagnosis Diagnosis Name Provider Source Jul 05, 2024 12:01 PM PRIMARY Encounter for other preprocedural examination ABDIAS WASHBURN [facility] Jul 05, 2024 12:01 PM SECONDARY Encounter for other specified surgical aftercare ABDIAS WASHBURN [facility] Plan of Treatment: Future Appointments (+ 6 months) and Future Tests (+/- 45 days) The Plan of Treatment section includes future care activities for the patient from all OR treatmentfacilities. This section includes future appointments and future orders which are active, pending or scheduled. Future Appointments This section includes appointments that were scheduled to occur 6 months from the date of the Encounter, up to a maximum of 20 appointments. The data comes from all OR treatment facilities. Appointment Date/Time Appointment Type Appointme nt Facility Name Jul 18, 2024 09:15 AM [facility] Jul 18, 2024 09:45 AM AMBULATORY - MEDICINE . [facility] Jul 19, 2024 09:00 AM AMBULATORY - MEDICINE [facility] Aug 21, 2024 09:00 AM AMBULATORY - MEDICINE [facility] Aug 30, 2024 09:00 AM AMBULATORY - MEDICINE [facility] Sep 05, 2024 09:00 AM AMBULATORY - MEDICINE [facility] Sep 10, 2024 11:00 AM AMBULATORY - NONE [facility] Sep 18, 2024 02:00 PM AMBULATORY - MEDICINE [facility] Sep 19, 2024 09:00 AM AMBULATORY - SURGERY [facility] Sep 25, 2024 09:45 AM AMBULATORY - MEDICINE [facility] Oct 03, 2024 09:15 AM AMBULATORY - MEDICINE [facility] Oct 03, 2024 09:30 AM AMBULATORY - MEDICINE [facility] Oct 04, 2024 06:45 AM AMBULATORY - NONE [facility] Oct 04, 2024 07:00 AM AMBULATORY - MEDICINE [facility] Oct 08, 2024 02:20 PM AMBULATORY - MEDICINE [facility] Nov 18, 2024 10:00 AM AMBULATORY - REHAB MEDICIN [facility] Nov 22, 2024 10:00 AM AMBULATORY - MEDICINE [facility] Nov 26, 2024 02:00 PM AMBULATORY - MEDICINE [facility] Dec 12, 2024 09:00 AM AMBULATORY - MEDICINE [facility] Dec 26, 2024 12:45 PM AMBULATORY - MEDICINE [facility] Lab Results: +/- 30 days of the encounter This section includes the Chemistry and Hematology Lab Results on record with OR for the patient. Radiology Reports and Pathology Reports are provided separately, in subsequent sections. Lab Results This section contains the Chemistry/Hematology Results that were resulted 30 days before or 30 daysafter the date of the Encounter. Date/Time Source Result Type Result - Unit Interpretation Reference Range Specimen Type Comment Jul 18, 2024 08:51 AM [facility] URINALYSIS (STL-PB) URINE Specimen Type: URINE No comment entered. Ordering Provider: FRANCISCO DAILY Report Released Date/Time: Sep 01, 2023 11:30 AM Reporting Lab: [address] [address] Performing Lab: [address] [address] URINE COLOR Light-Yellow Yellow U.BILIRUBIN Negative mg/dL Negative U.PH 6.0 5.0-8.0 APPEARANCE Clear Clear U.NITRITE Negative mg/dL Negative URN.GLUCOSE 70 mg/dL H Negative URN.PROTEIN Negative mg/dL URN.UROBILINOGEN Normal mg/dL Normal URN.BLOOD Negative mg/dL Negative-Trace URN.KETONES Negative mg/dL Negative-Trac e URN.LEUK.EST. Negative mg/dL Negative-Tr malu URN.SPECIFIC GRAVITY 1.014 Jul 18, 2024 08:51 AM [facility] RENAL PANEL PLASMA Specimen Type: PLASM A Comment: No hemolysis noted. Ordering Provider: FRANCISCO DAILY Report Released Date/Time: Sep 01, 2023 11:30 AM Reporting Lab: [address] [address] Performing Lab: [address] [address] CREATININE 1.92 mg/dL H 0.7-1.3 UREA NITROGEN 38.0 mg/dL H 9.0-25.0 GLUCOSE 92 mg/dL 72-99 SODIUM 138 meq/L 136-145 POTASSIUM 4.9 meq/L 3.5-5 CHLORIDE 110 meq/L H 98-107 CARBON DIOXIDE 18 meq/L L 22-31 CALCIUM 9.2 mg/dL 8.4-10.4 PHOSPHOROUS 3.6 mg/dL 2.3-4.7 ALBUMIN 3.4 g/dL 3.4-5 EGFR (CKD-EPI 2020) 37.0 >60 Jul 18, 2024 08:51 AM [facility] TACROLIMUS (STL-PB) BLOOD Specimen Type: BLOO D No comment entered. Ordering Provider: FRANCISCO DAILY Report Released Date/Time: Sep 01, 2023 11:30 AM Reporting Lab: [address] [address] Performing Lab: [address] [address] TACROLIMUS (STL-PB) 3.1 ng/mL Jul 18, 2024 08:51 AM [facility] CBC BLOOD Specimen Type: BLOOD No comment entered. Ordering Provider: FRANCISCO DAILY Report Released Date/Time: Sep 01, 2023 11:30 AM Reporting Lab: [address] [address] Performing Lab: [address] [address] WBC 5.8 10*3/uL 3.6-11.2 RBC 3.93 10*6/uL [...] 0.00-0. 20 Jun 21, 2024 08:53 AM [facility] HGA1C BLOOD Specimen Type: BLOOD No comment entered. Ordering Provider: FRANCISCO DAILY Report Released Date/Time: Sep 01, 2023 11:30 AM Reporting Lab: [address] [address] Performing Lab: [address] [address] HGA1C 8.0 H 4.0-6.0 Jun 21, 2024 08:53 AM [facility] TACROLIMUS (STL-PB) BLOOD Specimen Type: BLOO D No comment entered. Ordering Provider: FRANCISCO DAILY Report Released Date/Time: Sep 01, 2023 11:30 AM Reporting Lab: [facility] [address] [facility] [address] Performing Lab: [facility] [address] [place] [address] TACROLIMUS (STL-PB) 6.7 ng/mL Jun 21, 2024 08:53 AM [facility] RENAL PANEL PLASMA Specimen Type: PLASM A Comment: No hemolysis noted. Ordering Provider: FRANCISCO DAILY Report Released Date/Time: Sep 01, 2023 11:30 AM Reporting Lab: [address] [address] Performing Lab: [address] [address] CREATININE 1.95 mg/dL H 0.7-1.3 UREA NITROGEN 33.2 mg/dL H 9.0-25.0 GLUCOSE 136 mg/dL H 72-99 SODIUM 137 meq/L 136-145 POTASSIUM 4.8 meq/L 3.5-5 CHLORIDE 110 meq/L H 98-107 CARBON DIOXIDE 18 meq/L L 22-31 CALCIUM 9.3 mg/dL 8.4-10.4 PHOSPHOROUS 3.5 mg/dL 2.3-4.7 ALBUMIN 3.7 g/dL 3.4-5 EGFR (CKD-EPI 2020) 36.3 >60 Jun 21, 2024 08:53 AM [facility] URINALYSIS (STL-PB) URINE Specimen Type: URIN E No comment entered. Ordering Provider: FRANCISCO DAILY Report Released Date/Time: Sep 01, 2023 11:30 AM Reporting Lab: [address] [address] Performing Lab: [address] [address] URINE COLOR Light-Yellow Yellow U.BILIRUBIN Negative mg/dL [...] GRAVITY 1.016 Jun 21, 2024 08:53 AM [facility] CBC BLOOD Specimen Type: BLOOD No comment entered. Ordering Provider: FRANCISCO DAILY Report Released Date/Time: Sep 01, 2023 11:30 AM Reporting Lab: [place] [id number] [facility] [address] Performing Lab: [facility] [address] [facility] [address] WBC 6.2 10*3/uL 3.6-11.2 RBC 4.18 10*6/uL [...] and tobacco- related health factors from the OR facility where the Encounter took place. Current Smoking Status This section includes the most current smoking, or tobacco-related health factor, from the OR facility where the Encounter took place. Date/Time Current Smoking Status Comment Jg ity Apr 12, 2024 02:09 PM VA-TOBACCO NEVER USED [facility] Tobacco Use History This section includes a history of the smoking, or tobacco-related health factors, that were collected on or before the date of the Encounter. The data comes from the OR facility where the Encounter took place. Date/Time Smoking Status/Tobacco Use Comment F acility Nov 07, 2022 01:35 PM VATOBACCO NEVER USED [facility] Mar 17, 2021 07:44 PM ORYX ADMIT TOBACCO SCREEN NO [facility] Dec 18, 2020 11:14 PM VA-TOBACCO NEVER USED [facility] Dec 18, 2020 08:23 PM ORYX ADMIT TOBACCO SCREEN NO [facility] Nov 14, 2006 01:52 PM LIFETIME NON-USER OF TOBACCO [facility] Nov 22, 2005 02:20 PM LIFETIME NON-TOBACCO USER [facility] Dec 08, 2004 01:37 PM LIFETIME NON-TOBACCO USER [facility] Jul 28, 2004 01:13 PM LIFETIME NON-TOBACCO USER [facility] Jul 09, 2003 01:05 PM LIFETIME NON-TOBACCO USER [facility] Jun 26, 2002 02:05 PM LIFETIME NON-TOBACCO USER [facility] May 23, 2001 01:12 PM LIFETIME NON-TOBACCO USER [facility] Jun 14, 2000 01:24 PM LIFETIME NON-TOBACCO USER [facility] Pathology Reports: +/- 30 days of the [...] the Encounter. The data comes from all OR treatment facilities. Date/Time Pathology Report Provider Source [...] Performing Laboratory: Surgical Pathology Report Performed By: [facility]# [id number] [address] [place] [phone] $FTR - - - - - - - - - - - - - - - - - - - - - - - - - - - - - - - - - - - - - - - - (End of report) JAVIER HOFF MD [facility] Date Jul 08, 2024 - - - - - - - - - - - - - - - - - - - - - - - - - - - - - - - - - - - - - - - - DAT GANNON STANDARD FORM 515 ID:[id number] SEX:M :1955 AGE: 69 LOC:GILABA2 PCP: Mckenna Matthews MD /charly/ JAVIER HOFF Pathologist Signed: 07/08/2024 15:14 JVAIER HOFF [facility] Encounter Notes: All associated encounter notes This section contains the clinical notes associated to the Encounter. Date/Time Encounter Note(s) Provider Source Jul 08, 2024 10:17 AM ANESTHESIOLOGY POS T OPERATIVE E & M NOTE: LOCAL TITLE: ANESTHESIA POST-OP STL STANDARD TITLE: ANESTHESIOLOGY POST OPERATIVE E & M NOTE DATE OF NOTE: JUL 08, 2024@10:17 ENTRY DATE: JUL 08, 2024@10:17:38 AUTHOR: ABDIAS WASHBURN EXP COSIGNER: URGENCY: STATUS: COMPLETED Post-Anesthesia Note No anesthestic complications noted at time of this note's filing. Anesthesia Intra-Op Flowsheet Uploaded to [facility] Stevenson /charly/ ABDIAS WASHBURN MD STAFF ANESTHESIOLOGIST Signed: 07/08/2024 10:17 ABDIAS WASHBURN [facility] Jul 05, 2024 11:45 AM ANESTHESIOLOGY PRE OPERATIVE E & M NOTE: LOCAL TITLE: ANESTHESIA PRE-OP STL STANDARD TITLE: ANESTHESIOLOGY PRE OPERATIVE E & M NOTE DATE OF NOTE: JUL 05, 2024@11:45 ENTRY DATE: JUL 05, 2024@11:45:46 AUTHOR: ABDIAS WASHBURN EXP COSIGNER: URGENCY: STATUS: COMPLETED DAT GANNON is a 69 year old MALE Pre-operative diagnosis: diarrhea Operation proposed: colonoscopy VITALS Age: 69 Weight: 226 lb [102.51 kg] (06/13/2024 08:56) Height: 72 in [182.9 cm] (03/21/2024 08:55) BMI: 30.7 Blood pressure: 149/50 Pulse: 63 Temperature: 98 F [36.7 C] (06/13/2024 08:56) Respiration: 13 SpO2: 98% Pain: 0 (06/13/2024 08:56) ALLERGIES MORPHINE MEDICATIONS Inpatient: No medications found. Active Outpatient Medications (including Supplies): Active Outpatient [...] TWICE A DAY ACTIVE FOR ANTICOAGULATION 4) BUMETANIDE 1MG TAB TAKE ONE TABLET BY MOUTH EVERY ACTIVE OTHER DAY FOR FLUID RETENTION (EDEMA) REPLACES FUROSEMIDE 5) COLESTIPOL HCL 1GM TAB TAKE ONE TABLET BY MOUTH EVERY ACTIVE MORNING AND EVENING (OTHER MEDICATIONS SHOULD BE TAKEN 1 HOUR BEFORE OR 4 HOURS AFTER COLESTIPOL) 6) CONTOUR NEXT (GLUCOSE) TEST STRIP USE 1 STRIP FOR ACTIVE BLOOD TEST 6 TIMES A DAY FOR BLOOD SUGAR MONITORING 7) FERROUS SULFATE 325MG TAB TAKE ONE TABLET BY MOUTH ACTIVE ONCE A DAY FOR IRON SUPPLEMENTATION. 8) GLUCOSE 4GM CHEW TAB CHEW AND SWALLOW FOUR TABLETS BY ACTIVE MOUTH NEEDED FOR LOW BLOOD SUGAR REPEAT DOSE IF HYPOGLYCEMIA CONTINUES 15 MINUTES AFTER THE FIRST DOSE. 9) GLUCOSE SENSOR (4) GUARDIAN MMT-7040 USE 1 SENSOR ACTIVE UNDER THE SKIN EVERY WEEK FOR BLOOD SUGAR MONITORING 10) INSULIN,ASPART,HUMAN 100 UNIT/ML (PUMP) INJECT ACTIVE BASAL/BOLUS INSULIN UNDER THE SKIN CONTINUOUS VIA PUMP FOR DIABETES - INFUSING THRU PATIENT'S ATTACHED INSULIN PUMP 11) LISINOPRIL 40MG TAB TAKE ONE TABLET BY MOUTH ONCE A ACTIVE DAY FOR HEART OR BLOOD PRESSURE 12) METOPROLOL TARTRATE 100MG TAB TAKE ONE TABLET BY ACTIVE MOUTH TWICE A DAY FOR HEART/BLOOD PRESSURE. TAKE WITH OR IMMEDIATELY FOLLOWING FOOD. NEW DOSE 13) OMEPRAZOLE 40MG EC CAP TAKE ONE CAPSULE BY MOUTH ACTIVE EVERY MORNING BEFORE A MEAL TO LOWER STOMACH ACID. TAKE 30 MINUTES PRIOR TO FOOD. 14) PREDNISONE 5MG TAB TAKE ONE TABLET BY MOUTH EVERY ACTIVE MORNING WITH FOOD 15) RESERVOIR,MINIMED #MMT-332A USE 1 RESERVOIR EVERY ACTIVE THREE (3) DAYS FOR DIABETES WITH INSULIN PUMP 16) SET,INFUSION MINIMED #MMT-396 USE 1 SET FOR UNDER THE ACTIVE SKIN EVERY THREE (3) DAYS FOR INFUSION SET TO BE USED WITH INSULIN PUMP. 17) SODIUM BICARBONATE 650MG TAB TAKE TWO TABLETS BY ACTIVE MOUTH TWICE A DAY 18) TACROLIMUS 1MG CAP TAKE TWO CAPSULES BY MOUTH EVERY ACTIVE MORNING AND TAKE ONE CAPSULE EVERY EVENING TO PREVENT TRANSPLANT REJECTION 19) TAMSULOSIN HCL 0.4MG CAP TAKE TWO CAPSULES BY MOUTH ACTIVE EVERY EVENING APPROXIMATELY 30 MINUTES AFTER THE SAME MEAL EACH DAY (FOR PROSTATE) 20) VENLAFAXINE HCL 37.5MG 24HR SA CAP TAKE TWO CAPSULES ACTIVE BY MOUTH ONCE A DAY WITH FOOD. DO NOT ABRUPTLY DISCONTINUE MEDICATION. LABS WBC 6.2 10*3/uL 06/21/2024 08:53 RBC 4.18 10*6/uL 06/21/2024 08:53 HGB 12.8 L g/dL 06/21/2024 08:53 HCT 37.9 L % 06/21/2024 08:53 MCV 90.7 fL 06/21/2024 08:53 MCH 30.6 pg 06/21/2024 08:53 MCHC 33.8 g/dL 06/21/2024 08:53 RDW 12.9 % 06/21/2024 08:53 PLT 172 10*3/uL 06/21/2024 08:53 MPV 11.0 fL 06/21/2024 08:53 NEUTROPHILS, AUTO % 62 % 06/21/2024 08:53 LYMPHOCYTES, AUTO % 24 % 06/21/2024 08:53 MONOCYTES, AUTO % 9 % 06/21/2024 08:53 EOSINOPHILS, AUTO % 4 % 06/21/2024 08:53 BASOPHILS, AUTO % 1 % 06/21/2024 08:53 NEUTROPHILS, ABSOLUTE 3.86 10*3/uL 06/21/2024 08:53 LYMPHOCYTES, ABSOLUTE 1.47 10*3/uL 06/21/2024 08:53 MONOCYTES, ABSOLUTE 0.55 10*3/uL 06/21/2024 08:53 EOSINOPHILS, ABSOLUTE 0.25 10*3/uL 06/21/2024 08:53 BASOPHILS, ABSOLUTE 0.07 10*3/uL 06/21/2024 08:53 NRBC% 0 #/100 (WBCs) 10/26/2022 16:[address]T FRACTION 3.8 % 04/01/2024 11:24 INR VALUE 1.5 INR 05/05/2023 08:35 PROTIME 16.5 H sec 05/05/2023 08:35 No PTT EO data found SODIUM 137 mEq/L 06/21/2024 08:53 POTASSIUM 4.8 mEq/L 06/21/2024 08:53 CHLORIDE 110 H mEq/L 06/21/2024 08:53 UREA NITROGEN 33.2 H mg/dL 06/21/2024 08:53 CREATININE 1.95 H mg/dL 06/21/2024 08:53 CALCIUM 9.3 mg/dL 06/21/2024 08:53 PROTEIN 6.0 g/dL 08/16/2023 09:14 ALBUMIN 3.7 g/dL 06/21/2024 08:53 ALKALINE PHOSPHATASE 75 U/L 08/16/2023 09:14 ALT/SGPT 17 U/L 08/16/2023 09:14 AST/SGOT 14 U/L 08/16/2023 09:14 TOTAL BILIRUBIN 1.1 mg/dL 08/16/2023 09:14 CARBON DIOXIDE 18 L mEq/L 06/21/2024 08:53 GLUCOSE 136 H mg/dL 06/21/2024 08:53 EGFR (CKD-EPI 2020) 36.3 06/21/2024 08:53 HGA1C 8.0 H % 06/21/2024 08:53 URINE COLOR Light-Yellow 06/21/2024 08:53 APPEARANCE Clear 06/21/2024 08:53 U.PH 6.0 06/21/2024 08:53 U.BILIRUBIN Negative mg/dL 06/21/2024 08:53 U.NITRITE Negative mg/dL 06/21/2024 08:53 URINE RBC/HPF 1 /HPF 06/21/2024 08:53 URINE WBC/HPF <1 /HPF 06/21/2024 08:53 BACTERIA RARE /HPF 06/21/2024 08:53 MUCUS RARE /LPF 06/21/2024 08:53 U.SPERM RARE /HPF 04/07/2023 08:35 No URINE DRUG SCREEN EO data found No TEST LAST ONE EO data found No HIV SCREENING EO data found [facility] Hep C tests in last five years. *No Lab Data Found* DIAGNOSTICS CXR: Impression for CHEST X-RAY, 2 VIEWS, 04/17/21, case [id number] No acute pulmonary infiltrate. EKG: No data available for: EKG CONSULT STL EKG CONSULTS PB EKG RESULTS MA PFT: No Pulmonary Function Test for this patient. Echocardiogram: PROGRESS NOTES SELECTED No data available for: ECHOCARDIOGRAPHIC RESULTS MA ECHOCARDIOGRAPHY CONSULT STL ECHO COMPLETED CONSULT STL TRANSESOPHAGEAL ECHOCARDIOGRAM CONSULT RESULTS (ALEJANDRA) MA TRANSESOPHAGEAL ECHOCARDIOGRAM (ALEJANDRA) CONSULT REPORT IMAGING IMPRESSION SELECTED No data available for: US ECHOCARDIOGRAPHY, TRANSTHORACIC US DOPPLER ECHOCARDIOGARPHY COLOR FLOW MAPPING -PB ONLY US DOPPLER ECHOCARDIOGRAPHY-PB ONLY US ECHOCARDIOGRAPHY, TRANSTHORACIC-PB ONLY CARDIOLOGY ECHOCARDIOGRAM No Data Available Stress test: 06/27/2024 14:21 Local Title: STRESS TEST PROCEDURE Standard Title: CARDIOLOGY DIAGNOSTIC STUDY NOTE STRESS TEST PROCEDURE NOTE Vitals Pulse: 66 (06/13/2024 08:56) BP: 115/65 (06/13/2024 08:56) RESP: 18 (06/13/2024 08:56) Height: 72 in [182.9 cm] (03/21/2024 08:55) Weight: 226 lb [102.51 kg] (06/13/2024 08:56) Referring provider: THI GAN Reason for consult: Dyspnea and exercise intolerance. STress test for functional capacity Patients chart is reviewed. History is taken from the patient. HISTORY OF PRESENT ILLNESS TERESSADAT is a 69 year old MALE hx of PMH of SSS s/p [employer] dual chamber PPM(12/19/2018), Paroxysmal AFib s/p [...] or lightheadedness. Cardiac Hx: Yes. SSS s/p [employer] dual chamber PPM(12/19/2018), Paroxysmal AFib s/p DCCV (12/19/2018), Nonobstructive CAD 05/09/23 TTE 05/2024 with mild LVH, LVEf 55-60%, Gr1DDF, mod pHTN (PASP 55mmHg), mild RVE with borderline RVSF, positive bubble study with valsalva only. PAST MEDICAL HISTORY 1) Diabetic nephropathy (SNOMED CT 728927801) 2) Ulcer of lower Limb, unspecified (ICD-9-CM 707.10) 3) Erectile dysfunction due to diabetes mellitus (SNOMED CT 305613779) 4) Anemia in Chronic Kidney Disease (ICD-9-CM 285.21) 5) HTN - Hypertension (SNOMED CT 78493114) 6) GERD * (ICD-9-CM 530.81) 7) Acidosis, metabolic NEC (ICD-9-CM 276.2) 8) Diabetic nephropathy (SNOMED CT 974165341) 9) Hypertensive chronic kidney disease, unspecified, with chronic kidney disease St 10) History of - kidney recipient (SNOMED CT 131064501) 11) Other Fluid Overload (ICD-9-CM 276.69) 12) [...] mg/dL 06/21/2024 08:53 BUN: 33.2 mg/dL H (10/11/24 08:53) CREATININE 1.95 H mg/dL 06/21/2024 08:53 [...] history of postural lightheadness at home. ------- Signed by: /charly/ CONRAD SCHWARTZ moss gatherer 06/27/2024 15:35 Cosigned by: /es/ Jaquelin Dunn MD, FACC, FACP STAFF PHYSICIAN - Cardiology 06/30/2024 23:52 Analog Pager: [phone] Digital Pager: [phone] PROBLEM LIST 1) Diabetic nephropathy (SNOMED CT 772817165) 2) Ulcer of lower Limb, unspecified (ICD-9-CM 707.10) 3) Erectile dysfunction due to diabetes mellitus (SNOMED CT 046761456) 4) Anemia in Chronic Kidney Disease (ICD-9-CM 285.21) 5) HTN - Hypertension (SNOMED CT 53841920) 6) GERD * (ICD-9-CM 530.81) 7) Acidosis, metabolic NEC (ICD-9-CM 276.2) 8) Diabetic nephropathy (SNOMED CT 209830540) 9) Hypertensive chronic kidney disease, unspecified, with chronic kidney disease St 10) History of - kidney recipient (SNOMED CT 023948646) comment: 03-29-12 [facility] 11) Other Fluid Overload (ICD-9-CM 276.69) 12) Anticoagulant effect 13) Insulin pump present 14) Sinus bradycardia 15) Permanent cardiac pacemaker 16) Therapeutic drug effect 17) Acute osteomyelitis of foot 18) History of venous thrombosis 19) Postthrombotic syndrome 20) Sleep apnea 21) Lack of exercise 22) Coronary artery disease 23) Osteopenia 24) Patent foramen ovale REVIEW OF SYSTEMS/PAST MEDICAL HISTORY Functional capacity: >4 METs, able to walk 2 city blocks or climb flight of stairs RESPIRATORY for: - Recent or current SOB + Sleep apnea - Asthma - COPD CARDIAC for: - Recent chest pain + Hypertension + Hyperlipidemia - Myocardial infarction + Coronary artery disease - Heart failure - Valvular disease - Atrial fibrillation/flutter + pacemker 12/2018 + pulmonary HTN PSYCH/CENTRAL NERVOUS for: - Depression - Anxiety - Post-traumatic stress disorder - Cerebral vascular accident - Seizures ENDOCRINE for: + Diabetes - Hypothyroid RENAL for: - Chronic kidney disease - Nephrolithiasis + s/p renal transplant GI for: + GERD, no symptoms - Liver disease - GI bleed VASCULAR/HEMATOLOGY/ONCOLOGY for: - Anemia - Thrombocytopenia - Bleeding disorders MUSCULOSKELETAL/SKIN/PERIPHE RAL NERVOUS for: - Obesity - Arthritis/Degenerative joint disease - Rheumatoid arthritis - Neuropathy /REPRODUCTIVE for: - Prostate hypertrophy HABITS Alcohol: Occasional Smoking: Denies Other drugs: Denies SURGICAL HISTORY Reviewed Previous anesthesia complications: None Family history of anesthesia complications: None PHYSICAL EXAM Alert & oriented x3 Heart: Regular rate, Regular rhythm Lungs: Clear to auscultation bilaterally AIRWAY: MP CLASS:II THYROMENTAL DISTANCE:> 3 finger breaths RANGE OF MOTION: FULL ; no pain on flexion/extension TEETH: Okay ASA CLASS 3. A patient with severe systemic disease. ANESTHETIC PLAN Monitored Anesthesia Care (MAC) Planned anesthetic technique and options were discussed with the patient or guardian including risks, benefits, and potential complications. PRE-INDUCTION REASSESSMENT NPO Greater than 8 hours: Yes /charly/ ABDIAS WASHBURN MD STAFF ANESTHESIOLOGIST Signed: 07/05/2024 12:02 Receipt Acknowledged By: 07/05/2024 12:27 /charly/ CHAPITO JOHNSON, ABDIAS BENSON CRNA [facility]
--- OUTSIDE RECORDS SUMMARY | 2024-07-05 08:30 | XMS_ITS | Encounter Summary ---
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 Name Role Phone MCKENNA MATTHEWS Primary Care [...] PART A Feb 09, 2019 PART A [id number] ANA GANNON EPH PATIENT MEDICARE (WNR) MEDICARE (M) PART B Feb 09, 2019 PART B [id number] ANA GANNON EPH PATIENT MEDICARE (WNR) MEDICARE (M) PART A Feb 09, 2019 PART A [id number] ANA GANNON EPH PATIENT MEDICARE (WNR) MEDICARE (M) PART B Feb 09, 2019 PART B [id number] ANA GANNON EPH PATIENT MEDICARE (WNR) MEDICARE (M) PART A Feb 09, 2019 PART A [id number] [phone] ANA GANNON EPH PATIENT MEDICARE (WNR) MEDICARE (M) PART B Feb 09, 2019 PART B [id number] ANA GANNON EPH PATIENT MEDICARE PART D (WNR) MEDICARE (M) PART D Sep 11, 2019 PART D [id number] [phone] ANA GANNON PATIENT Selected Encounter This section includes the information on record at [place] for the Encounter. Date/Time Encounter Type Encounter Description Reason Provider Source Jul 05, 2024 01:30 PM Outpatient Encounter ADMIN PAT ACTIVTIES (MASNONCT) AMIE SRIVASTAVA Suzette Encounter Template Text not used by [place] Plan of Treatment: Future Appointments (+ 6 months) and Future Tests (+/- 45 days) The Plan of Treatment section includes future care activities for the patient from all [place] treatmentfacilities. This section includes future appointments and future orders which are active, pending or scheduled. Future Appointments This section includes appointments that were scheduled to occur 6 months from the date of the Encounter, up to a maximum of 20 appointments. The data comes from all [place] treatment facilities. Appointment Date/Time Appointment Type Appointme nt Facility Name Jul 18, 2024 09:15 AM AMBULATORY - NONE [facility] Jul 18, 2024 09:45 AM AMBULATORY - MEDICINE [facility] Jul 19, 2024 09:00 AM AMBULATORY - MEDICINE [facility] Aug 21, 2024 09:00 AM AMBULATORY - MEDICINE [facility] Aug 30, 2024 09:00 AM AMBULATORY - MEDICINE [facility] Sep 05, 2024 09:00 AM AMBULATORY - MEDICINE [facility] Sep 10, 2024 11:00 AM AMBULATORY - NONE [facility] Sep 18, 2024 02:00 PM AMBULATORY - MEDICINE [facility] Sep 19, 2024 09:00 AM AMBULATORY - SURGERY [facility] Sep 25, 2024 09:45 AM AMBULATORY - MEDICINE [facility] Oct 03, 2024 09:15 AM AMBULATORY - MEDICINE [facility] Oct 03, 2024 09:30 AM AMBULATORY - MEDICINE [facility] Oct 04, 2024 06:45 AM AMBULATORY - NONE [facility] Oct 04, 2024 07:00 AM AMBULATORY - MEDICINE [facility] Oct 08, 2024 02:20 PM AMBULATORY - MEDICINE [facility] Nov 18, 2024 10:00 AM AMBULATORY - REHAB MEDICIN E [facility] Nov 22, 2024 10:00 AM AMBULATORY - MEDICINE [facility] Nov 26, 2024 02:00 PM AMBULATORY - MEDICINE [facility] Dec 12, 2024 09:00 AM AMBULATORY - MEDICINE [facility] Dec 26, 2024 12:45 PM AMBULATORY - MEDICINE [facility] Lab Results: +/- 30 days of the encounter This section includes the Chemistry and Hematology Lab Results on record with [place] for the patient. Radiology Reports and Pathology Reports are provided separately, in subsequent sections. Lab Results This section contains the Chemistry/Hematology Results that were resulted 30 days before or 30 daysafter the date of the Encounter. Date/Time Source Result Type Result - Unit Interpretation Reference Range Specimen Type Comment Jul 18, 2024 08:51 AM [facility] URINALYSIS (STL-PB) URINE Specimen Type: URINE No comment entered. Ordering Provider: FRANCISCO DAILY Report Released Date/Time: Sep 01, 2023 11:30 AM Reporting Lab: [place] [id number] [facility] [phone] Performing Lab: [address] [phone] URINE COLOR Light-Yellow Yellow U.BILIRUBIN Negative mg/dL Negative U.PH 6.0 5.0-8.0 APPEARANCE Clear Clear U.NITRITE Negative mg/dL Negative URN.GLUCOSE 70 mg/dL H Negative URN.PROTEIN Negative mg/dL URN.UROBILINOGEN Normal mg/dL Normal URN.BLOOD Negative mg/dL Negative-Trace URN.KETONES Negative mg/dL Negative-Trac e URN.LEUK.EST. Negative mg/dL Negative-Tr malu URN.SPECIFIC GRAVITY 1.014 Jul 18, 2024 08:51 AM [facility] RENAL PANEL PLASMA Specimen Type: PLASM A Comment: No hemolysis noted. Ordering Provider: FRANCISCO DAILY Report Released Date/Time: Sep 01, 2023 11:30 AM Reporting Lab: [facility] [address] [facility] [phone] Performing Lab: [facility] [address] [facility] [address] CREATININE 1.92 mg/dL H 0.7-1.3 UREA NITROGEN 38.0 mg/dL H 9.0-25.0 GLUCOSE 92 mg/dL 72-99 SODIUM 138 meq/L 136-145 POTASSIUM 4.9 meq/L 3.5-5 CHLORIDE 110 meq/L H 98-107 CARBON DIOXIDE 18 meq/L L 22-31 CALCIUM 9.2 mg/dL 8.4-10.4 PHOSPHOROUS 3.6 mg/dL 2.3-4.7 ALBUMIN 3.4 g/dL 3.4-5 EGFR (CKD-EPI 2020) 37.0 >60 Jul 18, 2024 08:51 AM [facility] TACROLIMUS (STL-PB) BLOOD Specimen Type: BLOO D No comment entered. Ordering Provider: FRANCISCO DAILY Report Released Date/Time: Sep 01, 2023 11:30 AM Reporting Lab: [facility] [address] [facility] [phone] Performing Lab: [facility] [address] [facility] [address] TACROLIMUS (STL-PB) 3.1 ng/mL Jul 18, 2024 08:51 AM [facility] CBC BLOOD Specimen Type: BLOOD No comment entered. Ordering Provider: FRANCISCO DAILY Report Released Date/Time: Sep 01, 2023 11:30 AM Reporting Lab: [facility] [address] [facility] [address] Performing Lab: [facility] [address] [facility] [address] WBC 5.8 10*3/uL 3.6-11.2 RBC 3.93 10*6/uL [...] 0.00-0. 20 Jun 21, 2024 08:53 AM [facility] HGA1C BLOOD Specimen Type: BLOOD No comment entered. Ordering Provider: FRANCISCO DAILY Report Released Date/Time: Sep 01, 2023 11:30 AM Reporting Lab: [address] [phone] Performing Lab: [address] [address] HGA1C 8.0 H 4.0-6.0 Jun 21, 2024 08:53 AM [facility] TACROLIMUS (STL-PB) BLOOD Specimen Type: BLOO D No comment entered. Ordering Provider: FRANCISCO DAILY Report Released Date/Time: Sep 01, 2023 11:30 AM Reporting Lab: [address] [address] Performing Lab: [address] [address] TACROLIMUS (STL-PB) 6.7 ng/mL Jun 21, 2024 08:53 AM [facility] RENAL PANEL PLASMA Specimen Type: PLASM A Comment: No hemolysis noted. Ordering Provider: FRANCISCO DAILY Report Released Date/Time: Sep 01, 2023 11:30 AM Reporting Lab: [address] [phone] Performing Lab: [address] [address] CREATININE 1.95 mg/dL H 0.7-1.3 UREA NITROGEN 33.2 mg/dL H 9.0-25.0 GLUCOSE 136 mg/dL H 72-99 SODIUM 137 meq/L 136-145 POTASSIUM 4.8 meq/L 3.5-5 CHLORIDE 110 meq/L H 98-107 CARBON DIOXIDE 18 meq/L L 22-31 CALCIUM 9.3 mg/dL 8.4-10.4 PHOSPHOROUS 3.5 mg/dL 2.3-4.7 ALBUMIN 3.7 g/dL 3.4-5 EGFR (CKD-EPI 2020) 36.3 >60 Jun 21, 2024 08:53 AM [facility] URINALYSIS (STL-PB) URINE Specimen Type: URIN E No comment entered. Ordering Provider: FRANCISCO DAILY Report Released Date/Time: Sep 01, 2023 11:30 AM Reporting Lab: [address] [address] Performing Lab: [address] [phone] URINE COLOR Light-Yellow Yellow U.BILIRUBIN Negative mg/dL [...] GRAVITY 1.016 Jun 21, 2024 08:53 AM [facility] CBC BLOOD Specimen Type: BLOOD No comment entered. Ordering Provider: FRANCISCO DAILY Report Released Date/Time: Sep 01, 2023 11:30 AM Reporting Lab: [facility] [address] [facility] [address] Performing Lab: [facility] [address] [facility] [address] WBC 6.2 10*3/uL 3.6-11.2 RBC 4.18 10*6/uL [...] and tobacco- related health factors from the [place] facility where the Encounter took place. Current Smoking Status This section includes the most current smoking, or tobacco-related health factor, from the [place] facility where the Encounter took place. Date/Time Current Smoking Status Comment Facil [facility] Apr 12, 2024 02:09 PM VA-TOBACCO NEVER USED [facility] Tobacco Use History This section includes a history of the smoking, or tobacco-related health factors, that were collected on or before the date of the Encounter. The data comes from the [place] facility where the Encounter took place. Date/Time Smoking Status/Tobacco Use Comment F acility Nov 07, 2022 01:35 PM VA-TOBACCO NEVER USED [facility] Mar 17, 2021 07:44 PM ORYX ADMIT TOBACCO SCREEN NO [facility] Dec 18, 2020 11:14 PM VA-TOBACCO NEVER USED [facility] Dec 18, 2020 08:23 PM ORYX ADMIT TOBACCO SCREEN NO [facility] Nov 14, 2006 01:52 PM LIFETIME NON-USER OF TOBACCO [facility] Nov 22, 2005 02:20 PM LIFETIME NON-TOBACCO USER [facility] Dec 08, 2004 01:37 PM LIFETIME NON-TOBACCO USER [facility] Jul 28, 2004 01:13 PM LIFETIME NON-TOBACCO USER [facility] Jul 09, 2003 01:05 PM LIFETIME NON-TOBACCO USER [facility] Jun 26, 2002 02:05 PM LIFETIME NON-TOBACCO USER [facility] May 23, 2001 01:12 PM LIFETIME NON-TOBACCO USER [facility] Jun 14, 2000 01:24 PM LIFETIME NON-TOBACCO USER [facility] Pathology Reports: +/- 30 days of the [...] the Encounter. The data comes from all [facility] facilities. Date/Time Pathology Report Provider Source Jul 08, 2024 03:14 PM LR SURGICAL PATHOL OGY REPORT: LOCAL TITLE: LR SURGICAL PATHOLOGY REPORT STANDARD TITLE: PATHOLOGY PROCEDURE NOTE DATE OF NOTE: JUL 08, 2024@15:14:32 ENTRY DATE: JUL 08, 2024@15:14:32 AUTHOR: JAIVER HOFF EXP COSIGNER: URGENCY: STATUS: COMPLETED $APHDR [...] Performing Laboratory: Surgical Pathology Report Performed By: [address]# [id number] [address] [place] [phone] $FTR - - - - - - - - - - - - - - - - - - - - - - - - - - - - - - - - - - - - - - - - (End of report) JAVIER HOFF MD [facility] Date Jul 08, 2024 - - - - - - - - - - - - - - - - - - - - - - - - - - - - - - - - - - - - - - - - DAT GANNON STANDARD FORM 515 ID:[id number] SEX:M :1955 AGE: 69 LOC:GILABA2 PCP: Mckenna Matthews MD /charly/ JAVIER HOFF Pathologist Signed: 07/08/2024 15:14 JAVIER HOFF [facility] Encounter Notes: All associated encounter notes This section contains the clinical notes associated to the Encounter. Date/Time Encounter Note(s) Provider Source Jul 05, 2024 01:30 PM ANESTHESIOLOGY ERNESTINA WSHEET: LOCAL TITLE: ANES INTRA-OP FLOWSHEET STL STANDARD TITLE: ANESTHESIOLOGY FLOWSHEET DATE OF NOTE: JUL 05, 2024@13:30 ENTRY DATE: JUL 05, 2024@13:30:15 AUTHOR: AMIE SRIVASTAVA EXP COSIGNER: URGENCY: STATUS: COMPLETED Patient: DAT GANNON SSN: [id number] Date of Operation: 07/05/2024 Surgery Start Time: Surgery End Time: Anesthesia Care Start: 07/05/2024 12:32 Anesthesia Care End: 07/05/2024 13:29 Anesthesia Method: - Monitored 07/05/2024 12:40 (Primary), Level Of Consciousness: Sedated, Monitors Applied, Oxygen Therapy: Mask, EtCO2 Verified: Waveform Positioning: Head Neutral, Head And Neck In Alignment With Spine, Pressure Points Padded & Checked, Eyes, Ears And Nose Free Of Pressure ASA Number: 3 Procedure: Colonoscopy Diagnosis: Diarrhea Holding, Anesthesia, PACU Drugs: --------- Lidocaine: 60 mg Propofol: 200 mg Propofol gtt: 371.747 mg Phenylephrine: 3000 mcg Holding, Anesthesia, PACU Fluids: Normal Saline: 650 ml Resources: Headrest - Pillow Staff: --------- CHAPITO JOHNSON, RELIEF PUMP SERVICER HELPER AMIE SRIVASTAVA PRIN. ANES. ABDIAS WASHBURN ANES. SUPER. Procedure Date: 07/05/2024 Procedure Start Time: 07/05/2024 12:40 Procedure End Time: 07/05/2024 13:27 /charly/ AMIE SRIVASTAVA CERTIFIED REGISTERED NURSE PUMP SERVICER HELPER Signed: 07/05/2024 13:30 AMIE SRIVASTAVA [facility]
--- OUTSIDE RECORDS SUMMARY | 2024-07-18 04:45 | XMS_ITS | Encounter Summary ---
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 Apprentice Name Role Phone MCKENNA MATTHEWS Primary Care [...] PART A Feb 09, 2019 PART A [id number] ANA GANNON EPH PATIENT MEDICARE (WNR) MEDICARE (M) PART B Feb 09, 2019 PART B [id number] ANA GANNON EPH PATIENT MEDICARE (WNR) MEDICARE (M) PART A Feb 09, 2019 PART A [id number] ANA GANNON EPH PATIENT MEDICARE (WNR) MEDICARE (M) PART B Feb 09, 2019 PART B [id number] ANA GANNON PATIENT MEDICARE (WNR) MEDICARE (M) PART A Feb 09, 2019 PART A [id number] ANA GANNON EPH PATIENT MEDICARE (WNR) MEDICARE (M) PART B Feb 09, 2019 PART B [id number] ANA GANNON EPH PATIENT MEDICARE PART D (WNR) MEDICARE (M) PART D Sep 11, 2019 PART D [id number] [phone] ANA GANNON PATIENT Selected Encounter This section includes the information on record at [place] for the Encounter. 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 Date/Time Primary/Secondary Diagnosis Diagnosis Name Provider Source Jul 18, 2024 09:41 AM PRIMARY Hyp chr kidney disease w stage 5 chr kidney disease or ESRD SHERIE PIERCE [facility] Jul 18, 2024 09:41 AM SECONDARY Encounter for immunization SHERIE PIERCE [facility] Plan of Treatment: Future Appointments (+ 6 months) and Future Tests (+/- 45 days) The Plan of Treatment section includes future care activities for the patient from all [place] treatmentfacilities. This section includes future appointments and future orders which are active, pending or scheduled. Future Appointments This section includes appointments that were scheduled to occur 6 months from the date of the Encounter, up to a maximum of 20 appointments. The data comes from all [place] treatment facilities. Appointment Date/Time Appointment Type Appointme nt Facility Name Jul 19, 2024 09:00 AM AMBULATORY - MEDICINE [facility] Aug 21, 2024 09:00 AM AMBULATORY - MEDICINE [facility] Aug 30, 2024 09:00 AM AMBULATORY - MEDICINE [facility] Sep 05, 2024 09:00 AM AMBULATORY - MEDICINE [facility] Sep 10, 2024 11:00 AM AMBULATORY - NONE [facility] Sep 18, 2024 02:00 PM AMBULATORY - MEDICINE [facility] Sep 19, 2024 09:00 AM AMBULATORY - SURGERY . [facility] Sep 25, 2024 09:45 AM AMBULATORY - MEDICINE [facility] Oct 03, 2024 09:15 AM AMBULATORY - MEDICINE [facility] Oct 03, 2024 09:30 AM AMBULATORY - MEDICINE [facility] Oct 04, 2024 06:45 AM AMBULATORY - NONE [facility] Oct 04, 2024 07:00 AM AMBULATORY - MEDICINE [facility] Oct 08, 2024 02:20 PM AMBULATORY - MEDICINE [facility] Nov 18, 2024 10:00 AM AMBULATORY - REHAB MEDICIN E [facility] Nov 22, 2024 10:00 AM AMBULATORY - MEDICINE [facility] Nov 26, 2024 02:00 PM AMBULATORY - MEDICINE [facility] Dec 12, 2024 09:00 AM AMBULATORY - MEDICINE [facility] Dec 26, 2024 12:45 PM AMBULATORY - MEDICINE [facility] Dec 26, 2024 01:00 PM AMBULATORY - MEDICINE [facility] Dec 27, 2024 09:56 AM AMBULATORY - MEDICINE [facility] Lab Results: +/- 30 days of the encounter This section includes the Chemistry and Hematology Lab Results on record with [place] for the patient. Radiology Reports and Pathology Reports are provided separately, in subsequent sections. Lab Results This section contains the Chemistry/Hematology Results that were resulted 30 days before or 30 daysafter the date of the Encounter. Date/Time Source Result Type Result - Unit Interpretation Reference Range Specimen Type Comment Jul 18, 2024 08:51 AM [facility] RENAL PANEL PLASMA Specimen Type: PLASMA Comment: No hemolysis noted. Ordering Provider: FRANCISCO DAILY Report Released Date/Time: Sep 01, 2023 11:30 AM Reporting Lab: [facility] [address] [address] Performing Lab: [address] [address] CREATININE 1.92 mg/dL H 0.7-1.3 UREA NITROGEN 38.0 mg/dL H 9.0-25.0 GLUCOSE 92 mg/dL 72-99 SODIUM 138 meq/L 136-145 POTASSIUM 4.9 meq/L 3.5-5 CHLORIDE 110 meq/L H 98-107 CARBON DIOXIDE 18 meq/L L 22-31 CALCIUM 9.2 mg/dL 8.4-10.4 PHOSPHOROUS 3.6 mg/dL 2.3-4.7 ALBUMIN 3.4 g/dL 3.4-5 EGFR (CKD-EPI 2020) 37.0 >60 Jul 18, 2024 08:51 AM [facility] TACROLIMUS (STL-PB) BLOOD Specimen Type: BLOO D No comment entered. Ordering Provider: FRANCISCO DAILY Report Released Date/Time: Sep 01, 2023 11:30 AM Reporting Lab: [address] [address] Performing Lab: [address] [address] TACROLIMUS (STL-PB) 3.1 ng/mL Jul 18, 2024 08:51 AM [facility] URINALYSIS (STL-PB) URINE Specimen Type: URIN E No comment entered. Ordering Provider: FRANCISCO DAILY Report Released Date/Time: Sep 01, 2023 11:30 AM Reporting Lab: [address] [address] Performing Lab: [address] [address] URINE COLOR Light-Yellow Yellow U.BILIRUBIN Negative mg/dL Negative U.PH 6.0 5.0-8.0 APPEARANCE Clear Clear U.NITRITE Negative mg/dL Negative URN.GLUCOSE 70 mg/dL H Negative URN.PROTEIN Negative mg/dL URN.UROBILINOGEN Normal mg/dL Normal URN.BLOOD Negative mg/dL Negative-Trace URN.KETONES Negative mg/dL Negative-Trac e URN.LEUK.EST. Negative mg/dL Negative-Tr malu URN.SPECIFIC GRAVITY 1.014 Jul 18, 2024 08:51 AM [facility] CBC BLOOD Specimen Type: BLOOD No comment entered. Ordering Provider: FRANCISCO DAILY Report Released Date/Time: Sep 01, 2023 11:30 AM Reporting Lab: [facility] [address] [facility] [address] Performing Lab: [address] [address] WBC 5.8 10*3/uL 3.6-11.2 RBC 3.93 10*6/uL [...] 0.00-0. 20 Jun 21, 2024 08:53 AM [facility] HGA1C BLOOD Specimen Type: BLOOD No comment entered. Ordering Provider: FRANCISCO DAILY Report Released Date/Time: Sep 01, 2023 11:30 AM Reporting Lab: [facility] [address] [facility] [address] Performing Lab: [address] [address] HGA1C 8.0 H 4.0-6.0 Jun 21, 2024 08:53 AM [facility] TACROLIMUS (STL-PB) BLOOD Specimen Type: BLOO D No comment entered. Ordering Provider: FRANCISCO DAILY Report Released Date/Time: Sep 01, 2023 11:30 AM Reporting Lab: [address] [address] Performing Lab: [address] [address] TACROLIMUS (STL-PB) 6.7 ng/mL Jun 21, 2024 08:53 AM [facility] RENAL PANEL PLASMA Specimen Type: PLASM A Comment: No hemolysis noted. Ordering Provider: FRANCISCO DAILY Report Released Date/Time: Sep 01, 2023 11:30 AM Reporting Lab: [address] [address] Performing Lab: [address] [address] CREATININE 1.95 mg/dL H 0.7-1.3 UREA NITROGEN 33.2 mg/dL H 9.0-25.0 GLUCOSE 136 mg/dL H 72-99 SODIUM 137 meq/L 136-145 POTASSIUM 4.8 meq/L 3.5-5 CHLORIDE 110 meq/L H 98-107 CARBON DIOXIDE 18 meq/L L 22-31 CALCIUM 9.3 mg/dL 8.4-10.4 PHOSPHOROUS 3.5 mg/dL 2.3-4.7 ALBUMIN 3.7 g/dL 3.4-5 EGFR (CKD-EPI 2020) 36.3 >60 Jun 21, 2024 08:53 AM [facility] URINALYSIS (STL-PB) URINE Specimen Type: URIN E No comment entered. Ordering Provider: FRANCISCO DAILY Report Released Date/Time: Sep 01, 2023 11:30 AM Reporting Lab: [address] [address] Performing Lab: [address] [address] URINE COLOR Light-Yellow Yellow U.BILIRUBIN Negative mg/dL [...] GRAVITY 1.016 Jun 21, 2024 08:53 AM [facility] CBC BLOOD Specimen Type: BLOOD No comment entered. Ordering Provider: FRANCISCO DAILY Report Released Date/Time: Sep 01, 2023 11:30 AM Reporting Lab: [facility] [address] [id number] Performing Lab: [address] [address] WBC 6.2 10*3/uL 3.6-11.2 RBC 4.18 10*6/uL [...] 0.60 BASOPHILS, ABSOLUTE 0.07 10*3/uL 0.00-0. 20 Immunizations: All administered on the encounter date This section contains immunizations associated to the Encounter. Immunization Series Date Issued Administered By Site Reaction Lot Number CVX Code Drug Lead Case Manager Comment(s) Source INFLUENZA, HIGH-DOSE, TRIVALENT, PF Jul 18, 2024 SUSY PIERCE LEFT DELTO ID [id number] [employer] PASTE[employer] ADMINISTERE D AT [facility] COVID-19 (PFIZER), MRNA, LNP-S, PF, ERNESTO-SUCROSE, 30 MCG/0.3 ML (AGES 12+ YEARS) Jul 18, 2024 SUSY PIERCE LEFT DELTO ID [id number] [employer] ADMINISTERE D AT [facility] Social History: Smoking Status (Most current) and Tobacco Use (All prior to encounter date) This section includes the most current, and the historical, smoking and tobacco- related health factors from the [place] facility where the Encounter took place. Current Smoking Status This section includes the most current smoking, or tobacco-related health factor, from the [place] facility where the Encounter took place. Date/Time Current Smoking Status Comment Jg ity Nov 22, 2021 10:00 AM [place]-TOBACCO NEVER USED [facility] Tobacco Use History This section includes a history of the smoking, or tobacco-related health factors, that were collected on or before the date of the Encounter. The data comes from the [place] facility where the Encounter took place. Date/Time Smoking Status/Tobacco Use Comment F acility Sep 26, 2018 08:30 AM [facility] Jun 25, 2018 10:53 AM [place]-TOBACCO NEVER [facility]ED [facility] Dec 22, 2017 10:58 AM VA-TOBACCO NEVER USED [facility] Jun 28, 2017 11:04 AM LIFETIME NON-USER OF TOBACCO . [facility] Jun 21, 2017 09:54 AM LIFETIME NON-USER OF TOBAC CO non user . [facility] May 10, 2017 09:43 AM LIFETIME NON-USER OF TOBAC CO never . [facility] Feb 17, 2017 08:27 AM LIFETIME NON-USER OF TOBACCO . [facility] January 14, 2016 02:12 PM LIFETIME NON-USER OF TOBACCO [facility] Pathology Reports: +/- 30 days [...] the Encounter. The [facility]. Date/Time Pathology Report Provider Source [...] Performing Laboratory: Surgical Pathology Report Performed By: [address] [id number] [address] [place] [address] $FTR - - - - - - - - - - - - - - - - - - - - - - - - - - - - - - - - - - - - - - - - (End of report) JAVIER HOFF MD [facility] Date Jul 08, 2024 - - - - - - - - - - - - - - - - - - - - - - - - - - - - - - - - - - - - - - - - DAT GANNON STANDARD FORM 515 ID:[id number] SEX:M :1955 AGE: 69 LOC:GILABA2 PCP: Mckenna Matthews MD /charly/ JAVIER HOFF Pathologist Signed: 07/08/2024 15:14 JAVIER HOFF [facility] Encounter Notes: All associated encounter notes This section contains the clinical notes associated to the Encounter. Date/Time Encounter Note(s) Provider Source Jul 18, 2024 09:17 AM NURSING NOTE: LOCAL TITLE: V15 PACT FACE TO FACE NOTE ST STANDARD TITLE: NURSING NOTE DATE OF NOTE: JUL 18, 2024@09:17 ENTRY DATE: JUL 18, 2024@09:17:38 AUTHOR: SHERIE PIERCE EXP COSIGNER: URGENCY: STATUS: COMPLETED COVID-19 Immunization - L,N,P,PH,U: Pfizer Monovalent (Comirnaty) Administered: COVID-19 (PFIZER), MRNA, LNP-S, PF, ERNESTO-SUCROSE, 30 MCG/0.3 ML (AGES 12+ YEARS) Date Administered: Jul 18, 2024 09:38 Lead Case Manager: [employer] Lot: [id number] Exp Date: Dec 10, 2024 NDC: [id number] Admin Route/Site: INTRAMUSCULAR/RIGHT DELTOID Dosage: 0.3mL Vaccine Information Statement(s): COVID-19 MRNA VACCINE (12+ YRS) VACCINE VIS Jun 27, 2024 (ZAMBIAN) Order By: Mckenna Matthews Administered By: Sherie Pierce Vaccine administered without complications. Influenza Immunization - L,N,P,PH,U: Influenza, High-Dose, Trivalent, Preservative Free (Fluzone-Syringe) Administered: INFLUENZA, HIGH-DOSE, TRIVALENT, PF Date Administered: Jul 18, 2024 09:39 Lead Case Manager: SANOFI PASTEUR Lot: [id number] Exp Date: Mar 10, 2025 NDC: [id number] Admin Route/Site: INTRAMUSCULAR/LEFT DELTOID Dosage: 0.5mL Vaccine Information Statement(s): INFLUENZA(FLU) VACC(INACTIVATED OR RECOMBINANT)VIS Apr 16, 2021 (ZAMBIAN) Order By: Mckenna Matthews Administered By: Sherie Pierce The Influenza Vaccine Information Statement (VIS) was reviewed with the patient/caregiver which lists the benefits and risks of the vaccine and the risks of not receiving the Influenza vaccine. The patient/caregiver denied any prior severe reaction to this vaccine or its components or a severe allergic reaction, such as anaphylaxis, to any vaccine or any injectable therapy. The patient/caregiver gave verbal consent to receive the vaccine. /charly/ SHERIE PIERCE LPN LICENSED PRACITCAL NURSE Signed: 07/18/2024 09:41 SHERIE PIERCE [facility]
--- OUTSIDE RECORDS SUMMARY | 2024-08-30 04:00 | XMS_ITS | Encounter Summary ---
Author Name [facility] [place] [facility] [place] Address [address] [place] [address] Care Team Providers Care Embosser Operator Name Role Phone HELEN MATTHEWS Primary Care [...] PART A Feb 09, 2019 PART A [id number] ANA GANNON EPH PATIENT MEDICARE (WNR) MEDICARE (M) PART B Feb 09, 2019 PART B [id number] ANA GANNON EPH PATIENT MEDICARE (WNR) MEDICARE (M) PART A Feb 09, 2019 PART A [id number] NAA GANNON EPH PATIENT MEDICARE (WNR) MEDICARE (M) PART B Feb 09, 2019 PART B [id number] ANA GANNON PATIENT MEDICARE (WNR) MEDICARE (M) PART A Feb 09, 2019 PART A [id number] ANA GANNON EPH PATIENT MEDICARE (WNR) MEDICARE (M) PART B Feb 09, 2019 PART B [id number] [phone] ANA GANNON PATIENT MEDICARE PART D (WNR) MEDICARE (M) PART D Sep 11, 2019 PART D [id number] [phone] ANA GANNON PATIENT Selected Encounter This section includes the information on record at [place] for the Encounter. Date/Time Encounter Type Encounter Description Reason Provider Source Aug 30, 2024 09:00 AM OFFICE O/P EST HI 40 MIN PULMONARY/CHEST ICD-10-CM I27.20 Pulmonary hypertension, unspecified TRAVIS VILLATORO IHSuzette Encounter Template Text not used by [place] Assessments - Encounter Diagnoses This section includes the primary and secondary diagnoses documented for the Encounter. Date/Time Primary/Secondary Diagnosis Diagnosis Name Provider Source Aug 30, 2024 10:07 AM PRIMARY Pulmonary hypertension, unspecified DEMIDENKO,[facility] Aug 30, 2024 10:07 AM SECONDARY Dyspnea, unspecified DEMIDENKO,[facility] Aug 30, 2024 10:07 AM SECONDARY Hypoxemia [facility] Aug 30, 2024 10:07 AM SECONDARY Lack of physical exercise [facility] Aug 30, 2024 10:07 AM SECONDARY Sleep apnea, unspecified DEM[facility]EN[facility] Plan of Treatment: Future Appointments (+ 6 months) and Future Tests (+/- 45 days) The Plan of Treatment section includes future care activities for the patient from all [place] treatmentfacilities. This section includes future appointments and future orders which are active, pending or scheduled. Future Appointments This section includes appointments that were scheduled to occur 6 months from the date of the Encounter, up to a maximum of 20 appointments. The data comes from all [place] treatment facilities. Appointment Date/Time Appointment Type Appointme nt Facility Name Sep 05, 2024 09:00 AM AMBULATORY - MEDICINE [facility] Sep 10, 2024 11:00 AM AMBULATORY - NONE [facility] Sep 18, 2024 02:00 PM AMBULATORY - MEDICINE [facility] Sep 19, 2024 09:00 AM AMBULATORY - SURGERY . [facility] Sep 25, 2024 09:45 AM AMBULATORY - MEDICINE [facility] Oct 03, 2024 09:15 AM AMBULATORY - MEDICINE [facility] Oct 03, 2024 09:30 AM AMBULATORY - MEDICINE [facility] Oct 04, 2024 06:45 AM AMBULATORY - NONE [facility] Oct 04, 2024 07:00 AM AMBULATORY - MEDICINE [facility] Oct 08, 2024 02:20 PM AMBULATORY - MEDICINE [facility] Nov 18, 2024 10:00 AM AMBULATORY - REHAB MEDICIN E [facility] Nov 22, 2024 10:00 AM AMBULATORY - MEDICINE [facility] Nov 26, 2024 02:00 PM AMBULATORY - MEDICINE [facility] Dec 12, 2024 09:00 AM AMBULATORY - MEDICINE [facility] Dec 26, 2024 12:45 PM AMBULATORY - MEDICINE [facility] Dec 26, 2024 01:00 PM AMBULATORY - MEDICINE [facility] Dec 27, 2024 09:56 AM AMBULATORY - MEDICINE [facility] Dec 31, 2024 10:00 AM AMBULATORY - MEDICINE [facility] January 30, 2025 10:00 AM AMBULATORY - MEDICINE [facility] February 06, 2025 10:00 AM AMBULATORY - MEDICINE [facility] Active, Pending, and Scheduled Orders This section includes a listing of several types of active, pending, and scheduled orders, including clinic medications orders, diagnostic test orders, procedure orders and consult orders; where the start date of the order is 45 days before the date of the Encounter or 45 days after the date of theEncounter. The data comes from all [place] treatment facilities. Test Date/Time Test Type Test Details Facility Name Oct 04, 2024 06:00 AM Laboratory - Blood Bank Order TYPE & SCREEN - LAB BLOOD WC [facility] Lab Results: +/- 30 days of the encounter This section includes the Chemistry and Hematology Lab Results on record with [place] for the patient. Radiology Reports and Pathology Reports are provided separately, in subsequent sections. Lab Results This section contains the Chemistry/Hematology Results that were resulted 30 days before or 30 daysafter the date of the Encounter. Date/Time Source Result Type Result - Unit Interpretation Reference Range Specimen Type Comment Sep 19, 2024 09:40 AM [facility] RENAL PANEL PLASMA Specimen Type: PLASMA Comment: No hemolysis noted. Ordering Provider: SRI WINTERS Report Released Date/Time: Sep 01, 2023 11:30 AM Reporting Lab: [address] [address] Performing Lab: [address] [address] CREATININE 1.60 mg/dL H 0.7-1.3 UREA NITROGEN 34.6 mg/dL H 9.0-25.0 GLUCOSE 141 mg/dL H 72-99 SODIUM 138 meq/L 136-145 POTASSIUM 4.9 meq/L 3.5-5 CHLORIDE 110 meq/L H 98-107 CARBON DIOXIDE 20 meq/L L 22-31 CALCIUM 9.6 mg/dL 8.4-10.4 PHOSPHOROUS 3.0 mg/dL 2.3-4.7 ALBUMIN 3.9 g/dL 3.4-5 EGFR (CKD-EPI 2020) 46.1 >60 Sep 19, 2024 09:40 AM [facility] URINALYSIS (STL-PB) URINE Specimen Type: URIN E No comment entered. Ordering Provider: SRI WINTERS Report Released Date/Time: Sep 01, 2023 11:30 AM Reporting Lab: [address] [address] Performing Lab: [address] [address] URINE COLOR Light-Yellow Yellow U.BILIRUBIN Negative mg/dL Negative U.PH 6.0 5.0-8.0 URINE WBC/HPF 1 /[HPF] 0-5 URINE RBC/HPF 1 /[HPF] 0-5 APPEARANCE Clear Clear U.NITRITE Negative mg/dL Negative URN.GLUCOSE 50 mg/dL H Negative URN.PROTEIN Negative mg/dL URN.UROBILINOGEN Normal mg/dL Normal URN.BLOOD Negative mg/dL Negative-Trace URN.KETONES Negative mg/dL Negative-Trac e URN.LEUK.EST. Negative mg/dL Negative-Tr malu URN.SPECIFIC GRAVITY 1.013 Sep 19, 2024 09:34 AM [facility] HGA1C BLOOD Specimen Type: BLOOD No comment entered. Ordering Provider: SRI WINTERS Report Released Date/Time: Oct 10, 2023 12:32 PM Reporting Lab: [place] [address] Performing Lab: [place] [address] HGA1C 7.4 H 4.0-6.0 Sep 19, 2024 09:34 AM [facility] TACROLIMUS (STL-PB) BLOOD Specimen Type: BLOO D No comment entered. Ordering Provider: SRI WINTERS Report Released Date/Time: Oct 10, 2023 12:32 PM Reporting Lab: [place] [address] Performing Lab: [place] [address] TACROLIMUS (STL-PB) 4.4 ng/mL Sep 19, 2024 09:34 AM [facility] CBC BLOOD Specimen Type: BLOOD No comment entered. Ordering Provider: SRI WINTERS Report Released Date/Time: Oct 10, 2023 12:32 PM Reporting Lab: [place] [address] Performing Lab: [place] [address] WBC 6.6 10*3/uL 3.6-11.2 RBC 4.18 10*6/uL 4.10-5.70 HGB 12.8 g/dL L 13.1-16.8 HCT 37.1 L 38.2-48.4 MCV 88.8 fL 80.0-100.0 MCH 30.6 pg 27.0-34.0 MCHC 34.5 g/dL 33.0-36.0 PLT 154 10*3/uL 150-400 MPV 9.8 fL 7.5-11.2 RDW 12.8 11.8-15.1 LYMPHOCYTES, AUTO % 15 MONOCYTES, AUTO % 9 NEUTROPHILS, AUTO % 71 EOSINOPHILS, AUTO % 4 BASOPHILS, AUTO % 1 LYMPHOCYTES, ABSOLUTE 1.00 10*3/uL 0.77- 4.50 MONOCYTES, ABSOLUTE 0.58 10*3/uL 0.19-0. 80 NEUTROPHILS, ABSOLUTE 4.63 10*3/uL 2.10- 8.00 EOSINOPHILS, ABSOLUTE 0.27 10*3/uL 0.00- 0.60 BASOPHILS, ABSOLUTE 0.06 10*3/uL 0.00-0. 20 Sep 19, 2024 09:34 AM [facility] PROST. SPECIFIC AG.(PB-STL) SERUM Specimen Ty pe: SERUM Comment: The listed sex of this patient may not be a typical indication for this test. Therefore, reference ranges or interpretive criteria listed may not be valid. Clinical correlation suggested. Ordering Provider: HELEN MATTHEWS Report Released Date/Time: Sep 18, 2024 02:44 PM Reporting Lab: [facility] [address] [place] [address] Performing Lab: [facility] [address] [place] [address] PROST. SPECIFIC AG.(PB-STL) 0.418 ng/mL 0-4 Sep 19, 2024 09:34 AM [facility] LIPID PANEL (STL) PLASMA Specimen Type: PLASM A No comment entered. Ordering Provider: HELEN MATTHEWS Report Released Date/Time: Sep 18, 2024 02:51 PM Reporting Lab: [address] [address] Performing Lab: [address] [address] CHOLESTEROL 92 mg/dL 0-200 TRIGLYCERIDE 68 mg/dL 0-150 CALCULATED LDL 35 mg/dL HDL(New) 43 mg/dL >40 Aug 20, 2024 08:21 AM [facility] HEPATIC FUNTION PANEL (STL) PLASMA Specimen Ty pe: PLASMA No comment entered. Ordering Provider: BYRON CARDONA Report Released Date/Time: Aug 21, 2024 10:18 AM Reporting Lab: [facility] [address] [place] [address] Performing Lab: [facility] [address] [place] [place] [phone] PROTEIN 6.0 g/dL 6-8.6 ALBUMIN 3.5 g/dL 3.4-5 TOTAL BILIRUBIN 0.5 mg/dL 0.2-1.2 ALKALINE PHOSPHATASE 79 U/L 40-150 AST/SGOT 20 U/L 5-34 ALT/SGPT 20 U/L 8-40 CONJ. BILIRUBIN 0.2 mg/dL 0-0.5 Aug 20, 2024 08:21 AM [facility] TACROLIMUS (STL-PB) BLOOD Specimen Type: BLOO D No comment entered. Ordering Provider: SIR WINTERS Report Released Date/Time: Sep 01, 2023 11:30 AM Reporting Lab: [facility] [address] [place] [address] Performing Lab: [facility] [address] [place] [phone] TACROLIMUS (STL-PB) 5.6 ng/mL Aug 20, 2024 08:21 AM [facility] RENAL PANEL PLASMA Specimen Type: PLASM A Comment: No hemolysis noted. Ordering Provider: SRI WINTERS Report Released Date/Time: Sep 01, 2023 11:30 AM Reporting Lab: [facility] [address] [place] [address] Performing Lab: [facility] [address] [place] [address] CREATININE 2.38 mg/dL H 0.7-1.3 UREA NITROGEN 45.7 mg/dL H 9.0-25.0 GLUCOSE 145 mg/dL H 72-99 SODIUM 138 meq/L 136-145 POTASSIUM 5.2 meq/L H 3.5-5 CHLORIDE 109 meq/L H 98-107 CARBON DIOXIDE 20 meq/L L 22-31 CALCIUM 9.2 mg/dL 8.4-10.4 PHOSPHOROUS 4.1 mg/dL 2.3-4.7 ALBUMIN 3.5 g/dL 3.4-5 EGFR (CKD-EPI 2020) 28.6 >60 Aug 20, 2024 08:21 AM [facility] URINALYSIS (STL-PB) URINE Specimen Type: URIN E No comment entered. Ordering Provider: SRI WINTERS Report Released Date/Time: Sep 01, 2023 11:30 AM Reporting Lab: [address] [address] Performing Lab: [address] [address] URINE COLOR Light-Yellow Yellow U.BILIRUBIN Negative mg/dL Negative U.PH 5.5 5.0-8.0 URINE WBC/HPF 1 /[HPF] 0-5 URINE RBC/HPF 1 /[HPF] 0-5 APPEARANCE Clear Clear U.NITRITE Negative mg/dL Negative HYALINE CASTS 1 /[LPF] 0-5 URN.GLUCOSE 30 mg/dL H Negative URN.PROTEIN 20 mg/dL H URN.UROBILINOGEN Normal mg/dL Normal URN.BLOOD Negative mg/dL Negative-Trace URN.KETONES Negative mg/dL Negative-Trac e URN.LEUK.EST. Negative mg/dL Negative-Tr malu URN.SPECIFIC GRAVITY 1.019 Aug 20, 2024 08:21 AM [facility] CBC BLOOD Specimen Type: BLOOD No comment entered. Ordering Provider: SRI WINTERS Report Released Date/Time: Sep 01, 2023 11:30 AM Reporting Lab: [address] [address] Performing Lab: [address] [address] WBC 6.0 10*3/uL 3.6-11.2 RBC 3.92 10*6/uL L 4.10-5.70 HGB 12.2 g/dL L 13.1-16.8 HCT 36.4 L 38.2-48.4 MCV 92.9 fL 80.0-100.0 MCH 31.1 pg 27.0-34.0 MCHC 33.5 g/dL 33.0-36.0 PLT 157 10*3/uL 150-400 MPV 10.3 fL 7.5-11.2 RDW 13.2 11.8-15.1 LYMPHOCYTES, AUTO % 30 MONOCYTES, AUTO % 12 NEUTROPHILS, AUTO % 52 EOSINOPHILS, AUTO % 5 BASOPHILS, AUTO % 2 LYMPHOCYTES, ABSOLUTE 1.79 10*3/uL 0.77- 4.50 MONOCYTES, ABSOLUTE 0.72 10*3/uL 0.19-0. 80 NEUTROPHILS, ABSOLUTE 3.09 10*3/uL 2.10- 8.00 EOSINOPHILS, ABSOLUTE 0.29 10*3/uL 0.00- 0.60 BASOPHILS, ABSOLUTE 0.09 10*3/uL 0.00-0. 20 Vital Signs: All taken on the encounter date This section contains inpatient and outpatient Vital Signs collected on the date of the Encounter. Date/Time Temperature Pulse Blood Pressure Respiratory Rate SP02 Pain Height Weight Body Mass Index Source Aug 30, 2024 08:51 AM 97.7 79 144/55 20 97 0 72 219.1 30 [facility] Social History: Smoking Status (Most current) and Tobacco Use (All prior to encounter date) This section includes the most current, and the historical, smoking and tobacco- related health factors from the [place] facility where the Encounter took place. Current Smoking Status This section includes the most current smoking, or tobacco-related health factor, from the [place] facility where the Encounter took place. Date/Time Current Smoking Status Comment Facil ity Apr 12, 2024 02:09 PM [place]-TOBACCO NEVER USED [facility] Tobacco Use History This section includes a history of the smoking, or tobacco-related health factors, that were collected on or before the date of the Encounter. The data comes from the [place] facility where the Encounter took place. Date/Time Smoking Status/Tobacco Use Comment F acility Nov 07, 2022 01:35 PM [place]-TOBAC[place] NEVER USED [facility] Mar 17, 2021 07:44 PM ORYX ADMIT TOBACCO SCREEN NO [facility] Dec 18, 2020 11:14 PM [place]-TOBACCO NEVER USED [facility] Dec 18, 2020 08:23 PM ORYX ADMIT TOBACCO SCREEN NO [facility] Nov 14, 2006 01:52 PM LIFETIME NON-USER OF TOBACCO [facility] Nov 22, 2005 02:20 PM LIFETIME NON-TOBACCO USER [facility] Dec 08, 2004 01:37 PM LIFETIME NON-TOBACCO USER [facility] Jul 28, 2004 01:13 PM LIFETIME NON-TOBACCO USER [facility] Jul 09, 2003 01:05 PM LIFETIME NON-TOBACCO USER [facility] Jun 26, 2002 02:05 PM LIFETIME NON-TOBACCO USER [facility] May 23, 2001 01:12 PM LIFETIME NON-TOBACCO USER [facility] Jun 14, 2000 01:24 PM LIFETIME NON-TOBACCO USER [facility] Radiology Reports: +/- 30 days of the encounter Radiology Reports For cases when an order for radiology services may have been completed prior to the date of the Encounter, the report list includes the Radiology Reports that were completed up to 30 days before dateof the Encounter. For cases when an order for radiology services may have been completed after the date of the Encounter, the report list also includes the Radiology Reports that were completed up to30 days after date of the Encounter. The data comes from all [facility] [place] facilities. Date/Time Radiology Report Provider Source Sep 10, 2024 08:50 AM CHEST X-RAY, 2 VIE WS: DAT GANNON [id number] -1955 M Exm Date: SEP 10, 2024@08:50 Req Phys: THI GAN Loc: [facility]PULMONARY DEMIDENKO (Req'g Img Loc: [facility]-MAIN RADIOLOGY SUITE Service: [facility], [facility] [address] [place] [address] (Case [id number] COMPLETE) CHEST X-RAY, 2 VIEWS (RAD Detailed) CPT:91064 Reason for Study: V/Q scan Clinical History: with V/Q scan fro comparison Report Status: Verified Date Reported: SEP 10, 2024 Date Verified: SEP 10, 2024 Soaking Room Operator E-Sig:/CHARLY/CHIARA ALFORD Report: EXAMINATION: CHEST X-RAY, 2 VIEWS DATE: 09/10/2024 8:50 AM HISTORY: V/Q scan. COMPARISON: None. VIEWS: PA and lateral FINDINGS: No cardiomegaly. Atrioventricular leads in stable position. No mediastinal lymphadenopathy. Mild old granulomatous disease stable since April 2021. No pulmonary edema, consolidation, pneumothorax or effusion. Stable bony thorax, with no other new development since the prior chest x-ray. Impression: 1. No cardiomegaly. Stable atrioventricular leads. 2. Stable mild old granulomatous disease since April 2021. No pulmonary edema, consolidation, pneumothorax or effusion. Primary Interpreting Staff: CHIARA ALFORD, Staff Physician (Soaking Room Operator) /CHIARA SOARES [facility] Sep 10, 2024 08:49 AM [place] LUNG V/Q -P: TERESSADAT [id number] -1955 M Exm Date: SEP 10, 2024@08:49 Req Phys: THI GAN Pat Loc: [facility] DEMIDENKO (Req'g Img Loc: [facility]-NUCLEAR MEDICINE Service: Unknown [address] [address] (Case [id number] COMPLETE) PULMONARY VENTILATION AND PERFUSI(NM Detailed) CPT:77174 Reason for Study: oulmonary emboli (Case 1189 COMPLETE) TC-99M ALBUMIN MACROAGGREGATEDD(M(NM Detailed) CPT:A9540 (Case 1190 COMPLETE) XENON-133 GAS, PER 10 MCI (NM Detailed) CPT:A9558 (Case 1191 COMPLETE) NON-HEU TC-99M ADD-ON PER STUDY D(NM Detailed) CPT:Q9969 Clinical History: 1.) Does the patient show clinical signs and symptoms of DVT? No 2.) PE is #1 diagnosis, or equally likely Yes 3.) Is heart rate greater than 100? No 4.) Has the patient been immobilized at least 3 days, or has had surgery in the last 4 weeks? No 5.) Has the patient previously been diagnosed with a PE or DVT? Yes 6.) Does the patient have hemoptysis? No 7.) Has the patient been treated for malignancy within the past 6 months? No PATEINT HEIGHT: 72 in [182.9 cm] (08/30/2024 08:51) PATEINT WEIGHT: 219.1 lb [99.38 kg] (08/30/2024 08:51) Report Status: Verified Date Reported: SEP 10, 2024 Date Verified: SEP 10, 2024 Soaking Room Operator E-Sig:/ES/Aleah Gaming MD,PhD Report: CASE #: [id number], [id number], [id number], [id number]. Examination: Ventilation/perfusion lung scan REFERRING PHYSICIAN: Dr. THI GAN. HISTORY: 69-year-old male with history of right lower extremity DVT in 2012 presenting with new pulmonary hypertension, dyspnea and obstructive sleep apnea. There was no d-dimer available for review at the time the study was read. Elevated creatinine 2.3 mg/dL on 08/20/2024. Technique: A dose of 22.6 mCi Xenon-133 gas was inhaled and dynamic anterior and posterior imaging of the lungs performed during first breath inhalation, equilibrium and washout phases. A dose of 3.5 mCi Technetium-99m MAA was administered IV. Eight static views of lung perfusion were obtained . COMPARISON: There is no prior NM lung scan available for review. Chest x-ray from 09/10/2024 was reviewed. Findings: The first breath ventilation image shows uniform distribution of activity throughout both lungs. No change is seen at equilibrium. Washout images show progressive clearance of radio-xenon without significant gas trapping. The perfusion images show lung contours matching those seen on ventilation images and chest radiograph. No discrete pleural based segmental perfusion defect is demonstrated. Impression: No evidence of pulmonary embolism. Diagnostic code: 1001 Primary Interpreting Staff: Aleah Gaming MD,PhD, Nuclear Medicine Physician (Carlos) /ALEAH GILBERT [facility] Encounter Notes: All associated encounter notes This section contains the clinical notes associated to the Encounter. Date/Time Encounter Note(s) Provider Source Oct 14, 2024 11:09 AM ADDENDUM: LOCAL TITLE: Addendum STANDARD TITLE: ADDENDUM DATE OF NOTE: OCT 14, 2024@11:09:15 ENTRY DATE: OCT 14, 2024@11:09:16 AUTHOR: THI GAN COSIGNER: URGENCY: STATUS: COMPLETED Noted results of card catherization from 10/04/2024: Procedure Findings: -Mild, post-capillary pulmonary hypertension with mean PA: 31 mmHg and PCWP: 19mmHg -Elevated right and left filling pressures RECOMMENDATIONS Continue medical management Continue outpatient follow up with cardiology /es/ [facility] ANP Signed: 10/14/2024 11:11 Receipt Acknowledged By: 10/14/2024 12:36 /es/ DAVION SKINNER NP CARDIOLOGY/ELECTROPHYSIOLOG Y POWER ENGINEER --- Original Document --- 08/30/24 PULMONARY OUTPATIENT FOLLOW UP STL: 69 year old MALE for Pulmonary Clinic follow up visit on 08/30/24 09:00. CHIEF COMPLAINT 4 month follow up primarily for new pulmonary hypertension, dyspnea and MEDARDO. HISTORY The patient is a 69 y/o male with PMH of cardiomyopathy, PP since 12/2018 2/2 chronotropic incompetence, DM T1 wears insulin pump, LHC 05/09/23 showed non obstructive CAD and increased LVEDP; s/p renal transplant, venous thrombosis, lymphedema, anemia of chr dz, HTN,MEDARDO,HTN,GERDS, VitD deficiency, diarrhea, depression, wound in his right third toe on the dorsal surface, DVT extensive right leg deep vein thrombosis with occlusion of the superficial femoral and popliteal veins, as well as partial occlusion of the posterior tibial and peroneal veins on May 04, 2013. Mr. Crespo reports stable dyspnea. He is able to walk ~ 100 feet w/o dyspnea. He was dx with new pulmonary hypertension on most recent ECHO. He reports cough increased in the evening time and in lying position. He denies hemoptysis, wheezing, night sweat. He reports vasomotor rhinitis. He denies heartburn or aspiration symptoms. 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 Eyes.....................Ne gative for BLURRED VISION/VISUAL CHANGES. Ears/Nose/Mouth/Throat...Ne gative for HEARING CHANGES/SINUS CONGESTION, OR SORE THROAT. Cardiovascular...........Ne gative for CHEST PAIN/PALPITATIONS. Respiratory..............Ne gative for COUGH/WHEEZING. Gastrointestinal.........Ne gative for DIARRHEA/CONSTIPATION/NAUSE A/VOMITING/ABDOMINAL PAIN/MELENA Genitourinary............Ne gative for DYSURIA/HESITANCY/URGENCY/I NCONTINENCE. Muscular.................Ne gative for CHANGES STRENGTH/JOINT PAIN, OR SWELLING. Integumentary............Ne gative for RASH/HIVES/BRUISING/DISCOLO RATION. Neurological.............Ne gative for LOC/LIGHTHEADEDNESS/DIZZINE SS/FOCAL WEAKNESS,OR PARESTHESIA Endocrine................Ne gative for GOITER/LETHARGY/HEAT - COLD INTOLERANCE. Hematologic/Lymphatic....Ne gative for PALLOR/SWELLING. Allergies/Immune.........Ne gative FOR CHANGE. Psychological.Negative for DEPRESSION/ANXIETY/MOOD CHANGES. PAST PULMONARY/MEDICAL HISTORY No hospitalization or ER visit for respiratory problem. Lifelong non-smoker. 1) Diabetic nephropathy (SNOMED CT 325538109) 2) Ulcer of lower Limb, unspecified (ICD-9-CM 707.10) 3) Erectile dysfunction due to diabetes mellitus (SNOMED CT 863418995) 4) Anemia in Chronic Kidney Disease (ICD-9-CM 285.21) 5) HTN - Hypertension (SNOMED CT 52165572) 6) GERD * (ICD-9-CM 530.81) 7) Acidosis, metabolic NEC (ICD-9-CM 276.2) 8) Diabetic nephropathy (SNOMED CT 563044624) 9) Hypertensive chronic kidney disease, unspecified, with chronic kidney disease St 10) History of - kidney recipient (SNOMED CT 079302571) 11) Other Fluid Overload (ICD-9-CM 276.69) 12) Anticoagulant effect 13) Insulin pump present 14) Sinus bradycardia 15) Permanent cardiac pacemaker 16) Therapeutic drug effect 17) Acute osteomyelitis of foot 18) History of venous thrombosis 19) Postthrombotic syndrome 20) Sleep apnea 21) Lack of exercise 22) Coronary artery disease 23) Osteopenia 24) Patent foramen ovale IM - IMMUNIZATIONS ADMINISTERED Immunization Series Date Facility Reaction Info COVID-19 (MODERNA), MRNA, LNP-S,* 1 05/31/2022 [facility]* <C> COVID-19 (PFIZER), MRNA, LNP-S, * 3 05/08/2021 [facility]* COVID-19 (PFIZER), MRNA, LNP-S, * 1 05/01/2021 [facility] COVID-19 (PFIZER), MRNA, LNP-S, * 2 10/22/2020 [facility]* <C> COVID-19 (PFIZER), MRNA, LNP-S, * 1 10/01/2020 [facility]* <C> COVID-19 (PFIZER), MRNA, LNP-S, * 1 11/01/2021 [facility] COVID-19 (PFIZER), MRNA, LNP-S, * 07/18/2024 [facility]* COVID-19 (PFIZER), MRNA, LNP-S, * 3 06/16/2023 [facility] INFLUENZA (HISTORICAL) 06/30/2004 [facility]* INFLUENZA (HISTORICAL) 07/11/2001 [facility]* INFLUENZA (HISTORICAL) 07/04/1996 [facility]* INFLUENZA, HIGH-DOSE, QUADRIVALE* 06/09/2023 [facility] INFLUENZA, HIGH-DOSE, QUADRIVALE* 7 07/18/2022 [facility] INFLUENZA, HIGH-DOSE, QUADRIVALE* 5 06/30/2021 [facility] INFLUENZA, HIGH-DOSE, QUADRIVALE* 06/08/2020 [facility]* INFLUENZA, HIGH-DOSE, TRIVALENT,* 07/18/2024 [facility]* INFLUENZA, SPLIT VIRUS, QUADRIVA* C 06/13/2019 [facility] INFLUENZA, SPLIT VIRUS, TRIVALEN* 06/13/2016 [facility]* <C> INFLUENZA, SPLIT VIRUS, TRIVALEN* 3 06/12/2016 [facility] INFLUENZA, SPLIT VIRUS, TRIVALEN* 06/29/2015 [facility]* <C> INFLUENZA, SPLIT VIRUS, TRIVALEN* 2 06/28/2015 [facility] INFLUENZA, SPLIT VIRUS, TRIVALEN* 06/08/2017 [facility]* <C> INFLUENZA, SPLIT VIRUS, TRIVALEN* 4 06/07/2017 [facility] INFLUENZA, UNSPECIFIED FORMULATI* 6 06/11/2022 [facility] INFLUENZA, UNSPECIFIED FORMULATI* 06/23/2021 [facility]* INFLUENZA, UNSPECIFIED FORMULATI* 06/08/2018 [facility] * INFLUENZA, UNSPECIFIED FORMULATI* 06/09/2017 [facility]* INFLUENZA, UNSPECIFIED FORMULATI* [facility] INFLUENZA, UNSPECIFIED FORMULATI* [facility] INFLUENZA, UNSPECIFIED FORMULATI* 1 07/17/2014 [facility] INFLUENZA, UNSPECIFIED FORMULATI* [facility]* INFLUENZA, UNSPECIFIED FORMULATI* 06/18/2012 [facility]* INFLUENZA, UNSPECIFIED FORMULATI* 06/16/2011 [facility] INFLUENZA, UNSPECIFIED FORMULATI* 06/18/2010 [facility] INFLUENZA, UNSPECIFIED FORMULATI* 06/29/2009 Dr mijares* INFLUENZA, UNSPECIFIED FORMULATI* 07/01/2008 [place] <[facility]> INFLUENZA, UNSPECIFIED FORMULATI* 07/03/2007 [facility] INFLUENZA, UNSPECIFIED FORMULATI* 08/25/2006 [facility] INFLUENZA, UNSPECIFIED FORMULATI* 07/05/2005 [facility] INFLUENZA, UNSPECIFIED FORMULATI* 06/30/2004 [facility] INFLUENZA, UNSPECIFIED FORMULATI* 07/16/2002 [facility] INFLUENZA, UNSPECIFIED FORMULATI* 07/11/2001 [facility]* PNEUMOCOCCAL CONJUGATE PCV 13 05/12/2015 [facility]* <C> PNEUMOCOCCAL POLYSACCHARIDE PPV23 01/16/2023 [facility] PNEUMOCOCCAL POLYSACCHARIDE PPV23 12/22/2017 [facility] PNEUMOCOCCAL POLYSACCHARIDE PPV23 03/11/2012 [facility]* <C> RSV, RECOMBINANT, PROTEIN SUBUNI* 1 08/31/2023 [facility] TDAP 05/09/2019 [facility]* <C> TDAP Done here* [facility] RECOMBINANT [address] [facility]* [facility] RECOMBINANT 1 12/27/2021 [facility] CONTRAINDICATED No data available REFUSED ======= Immunization Date Facility Info COVID-19 (MODERNA), MRNA, LNP-S,* 04/18/2024 [facility] <I> ACTIVE OUTPATIENT MEDICATIONS Active Outpatient Medications (including Supplies): Active Outpatient Medications Status 1) ACCU-CHEK GUIDE (GLUCOSE) TEST STRIP USE 1 STRIP FOR BLOOD ACTIVE TEST 6 TIMES A DAY *INSULIN PUMP THERAPY* Sep Indication: FOR BLOOD SUGAR MONITORING 2) APIXABAN 5MG TAB TAKE ONE TABLET BY MOUTH TWICE A DAY FOR ACTIVE ANTICOAGULATION 3) ATORVASTATIN CALCIUM 20MG TAB TAKE ONE-HALF TABLET BY MOUTH ACTIVE EVERY EVENING REPLACES SIMVASTATIN Indication: FOR HIGH CHOLESTEROL 4) BUMETANIDE 1MG TAB TAKE ONE TABLET BY MOUTH EVERY OTHER DAY ACTIVE REPLACES FUROSEMIDE Indication: FOR FLUID RETENTION (EDEMA) 5) COLESTIPOL HCL 1GM TAB TAKE ONE TABLET BY MOUTH EVERY ACTIVE MORNING AND EVENING (OTHER MEDICATIONS SHOULD BE TAKEN 1 HOUR BEFORE OR 4 HOURS AFTER COLESTIPOL) Indication: BILE SALT DIARRHEA 6) CONTOUR NEXT (GLUCOSE) TEST STRIP USE 1 STRIP FOR BLOOD TEST ACTIVE 6 TIMES A DAY Indication: FOR BLOOD SUGAR MONITORING 7) FERROUS SULFATE 325MG TAB TAKE ONE TABLET BY MOUTH ONCE A ACTIVE DAY FOR IRON SUPPLEMENTATION. 8) GLUCOSE 4GM CHEW TAB CHEW AND SWALLOW FOUR TABLETS BY MOUTH ACTIVE NEEDED REPEAT DOSE IF HYPOGLYCEMIA CONTINUES 15 MINUTES AFTER THE FIRST DOSE. Indication: FOR LOW BLOOD SUGAR 9) GLUCOSE SENSOR (4) GUARDIAN MMT-7040 USE 1 SENSOR UNDER THE ACTIVE SKIN EVERY WEEK Indication: FOR BLOOD SUGAR MONITORING 10) LISINOPRIL 40MG TAB TAKE ONE TABLET BY MOUTH ONCE A DAY FOR ACTIVE HEART OR BLOOD PRESSURE 11) METOPROLOL TARTRATE 100MG TAB TAKE ONE TABLET BY MOUTH TWICE ACTIVE A DAY FOR HEART/BLOOD PRESSURE. TAKE WITH OR IMMEDIATELY FOLLOWING FOOD. NEW DOSE 12) OMEPRAZOLE 40MG EC CAP TAKE ONE CAPSULE BY MOUTH EVERY ACTIVE (S) MORNING BEFORE A MEAL TO LOWER STOMACH ACID. TAKE 30 MINUTES PRIOR TO FOOD. 13) PREDNISONE 5MG TAB TAKE ONE TABLET BY MOUTH EVERY MORNING ACTIVE WITH FOOD 14) RESERVOIR,MINIMED #MMT-332A USE 1 RESERVOIR EVERY THREE ACTIVE (3) DAYS WITH INSULIN PUMP Indication: FOR DIABETES 15) SET,INFUSION MINIMED #MMT-396 USE 1 SET FOR UNDER THE SKIN ACTIVE EVERY THREE (3) DAYS TO BE USED WITH INSULIN PUMP. Indication: FOR INFUSION SET 16) SODIUM BICARBONATE 650MG TAB TAKE TWO TABLETS BY MOUTH TWICE ACTIVE A DAY 17) TACROLIMUS 1MG CAP TAKE TWO CAPSULES BY MOUTH EVERY MORNING ACTIVE AND TAKE ONE CAPSULE EVERY EVENING TO PREVENT TRANSPLANT REJECTION 18) TAMSULOSIN HCL 0.4MG CAP TAKE TWO CAPSULES BY MOUTH EVERY ACTIVE EVENING APPROXIMATELY 30 MINUTES AFTER THE SAME MEAL EACH DAY (FOR PROSTATE) Indication: FOR BENIGN PROSTATIC HYPERPLASIA MEDICATION NOTES Prednisone 5 mg daily s/p kidney transplant Tacrolimus 2 mg AM and 1 mg gHS Never use inhalers or suppl. O2 CPAP every night ALLERGIES MORPHINE PHYSICAL EXAMINATION Vital Signs: Temperature: 97.7 F [36.5 C] (08/30/2024 08:51) Blood Pressure: 144/55 (08/30/2024 08:51) Pulse: 79 (08/30/2024 08:51) Respirations: 20 (08/30/2024 08:51) Pain: 0 (08/30/2024 08:51) Patient Height:72 in [182.9 cm] (08/30/2024 08:51) Patient Weight:219.1 lb. [99.38 kg] (08/30/2024 08:51) BMI: 29.8 O2 saturation: 97% (08/30/2024 08:51) on RA General: NAD, breathing comfortably at rest on room air, well nourished, well developed. HEENT: No trauma, normal conjunctiva, ears, nasal mucosa, sinus palpation, and pharynx, PERRL, Neck: Supple, trachea midline, no JVD, thyromegaly, adenopathy. Heart: S1S2, regular rhythm without murmur, rub, gallop, 2+ pitting LA edema bilaterally, pulses 2+/rad Lungs: CTAB, no wheezing even with forced expiration. Abdomen: Bowel sounds present, soft, not distended, not tender, no hepatosplenomegaly. Extremities: Good pulses, no clubbing, cyanosis, edema. Skin: No rashes or lesions. MSK: abnormal gait, YI Neurologic: AoX4, responds appropriately, BOOGIE, CN II-XII grossly intact . SELECTED RESULTS REVIEWED Stress test 06/17/2024: CONCLUSIONS - Maximal exercise stress test. - [...] Lab in stable condition with NO symptoms. --------- ======= SUMMARY ======= -Non-ischemic ECG stress portion. -Poor functional capacity ``````````````````````````` ``````````````````````````` `````````` TTE CP TTE ECHOCARDIOGRAM 05/21/2024: Impression: 1. Normal left ventricular size. Mild left ventricular hypertrophy. 2. Global systolic function: Overall left ventricular systolic function is normal with an estimated ejection fraction of 55 - 60%. 3. Diastolic function: Mitral inflow pattern and tissue Doppler is consistent with mild diastolic dysfunction (grade Ib) and elevated left atrial filling pressure. 4. The left atrium is mildly enlarged. 5. The right ventricle is mildly enlarged. Borderline right ventricular systolic function. The right atrial size is upper normal. 6. Moderate pulmonary hypertension with an estimated right ventricular/pulmonary artery systolic pressure of 55 mmHg. 7. No hemodynamically significant valvular abnormality. 8. Agitated saline bubble study reveals right to left shunt with Valsalva only (10-20 bubbles/frame). Mobile interatrial septum. 9. As compared to the previous echocardiogram done on 06-07-2022, now see elevated pulmonary pressures. ALEJANDRA 03-24-2021 confirmed PFO. ``````````````````````````` ``````````````````````````` ````` Labs 08/20/2024: Creat 2.38 High H/H 12.2/36.4 Low IMPRESSION/RECOMMENDATIONS 1. Dyspnea, multifactorial possible due to deconditioning, obesity, cardiac problem, anemia of chronic disease, or less likely low DLCO. -- We discuss his respiratory problem and our approach to management. -- Review PFT 03/31/2023. There is a nonspecific reduction in expiratory flow that did not improve after inhaled bronchodilator. There is impairment of diffusing capacity but not oxygenation. There are no prior studies available for comparison. Repeat PFT to r/o low DLCO. -- Review Stress test 06/17/2024. Non-ischemic ECG stress portion. Poor functional capacity -- Ordered V/Q test to r/o PE due to chronic DVT. -- Review ECHO 05/21/2024. New diagnosed pulmonary hypertension. Possible secondary to cardiac disease. Right heart cauterization would be helpful to dx pre and post-capillary pulmonary hypertension. Will discuss with Dr. Winters signals intelligence analysis manager due to renal failure condition. -- 6MW by RT now. No needs for supplemental O2. -- Not a candidate for CARP, completed CARP FATEMEH last year successfully, long distance. -- Encourage daily physical activity as tolerate. 2. MEDARDO, on CPAP. 3. Tobacco use, lifelong non-smoker. -- Congratulated on remaining tobacco free 4. Immunization. UTD + RSV. -- Encouraged annual influenza vaccination 5. Pulmonary hypertension , new dx on ECHO 05/21/2024. Most likely Group 2 due to cardiac shunt, CHF, edema. No significant pulmonary disease on chest images or PFT. -- We discuss dx of pulmonary hypertension. I my opinion it is group 2. We timely discuss results of ECHO, right to left cardiac shunt, fluid overload, hx of venous thrombosis, MEDARDO and CAD. -- I recommend the right heart cath. Patient underwent left card cath in 04/2023. I will discuss this procedure with Dr. Winters signals intelligence analysis manager. -- No needs for supplemental O2. -- Use CPAP with every sleep. -- Encourage maintain healthy weight. -- Encouraged to exercise but patient stated that his tar man recommended against of exercise. Will discuss with cardiology. -- Encourage to monitor volume status. RTC in 4 mo. Plan of care has been discussed with who verbalizes understanding and is in agreement with the plan of care. Vet was advised to call or go to the nearest health facility if any worsening of respiratory symptoms like Chest pain, hemoptysis or SOB. Patient was instructed to keep all scheduled appointments and contact nurse practitioner if any additional problems occur after this appointment. I spent 45 minutes performing services for this patient: before, during and after the F2F visit today more than 50% of the provider's [id number]-[id number] visit time with a patient is spent in counseling or coordination of care Dr. Winters - please recommend if patient can have the right heart cauterization for a new diagnosed pulmonary hypertension in light of kidney failure. Ideally, I would like to evaluate a new dx of pHTN (for pre and post-capillary hypertension) by RHC. Appreciate your professional opinion. /ROCKY Adams PULMONARY ANP Signed: 09/01/2024 18:06 Receipt Acknowledged By: 09/05/2024 11:30 /kaylyn Winters MD STAFF PHYSICIAN - NEPHROLOGY 09/15/2024 14:52 /kaylyn MATTHEWS 09/05/2024 ADDENDUM STATUS: COMPLETED If it is essential to make a diagnosis and determine treatment plan, then please go ahead. I would recommend using the lowest possible volume of a low osmolar contrast. Let me know what you plan and pt should be made aware of risks/benefits. Appreciate checking in. Thanks /kaylyn Winters MD STAFF PHYSICIAN - NEPHROLOGY Signed: 09/05/2024 11:33 Receipt Acknowledged By: 09/08/2024 16:56 /ROCKY Adams PULMONARY ANP 09/10/2024 ADDENDUM STATUS: COMPLETED I was able to make contact with and discuss results of a V/Q scan and a plan of care to get RHC fro further evaluation of pHTN. I discussed recommendation of signals intelligence analysis manager Dr. Winters with . He agreed to RHC and consult pulmonary hypertension clinic in [facility] if appropriate. /ROCKY Adams PULMONARY ANP Signed: 09/10/2024 13:01 09/10/2024 ADDENDUM STATUS: COMPLETED Dr. Winters - appreciate your recommendation. I discuss the plan of care and RHC procedure and risk and benefits with . He would like to have RHC completed. I recommend against of LHC because he was interested in LHC again. I entered your recommendation in the order and comments of RHC. Dr. Matthews- as I informed you before wanted to repeat LHC but I recommend not to do right and left heart catheterization due to s/p kidney transplant. I explained that we need the RHC for further evaluation of a new pulmonary hypertension. I emphasized on using the lowest possible volume during RHC. He verbalized understanding. /ROCKY Adams PULMONARY ANP Signed: 09/10/2024 13:22 Receipt Acknowledged By: 09/10/2024 13:42 /kaylyn Winters MD STAFF PHYSICIAN - NEPHROLOGY 09/15/2024 14:50 /THI Doss [facility] Sep 10, 2024 01:16 PM ADDENDUM: LOCAL TITLE: Addendum STANDARD TITLE: ADDENDUM DATE OF NOTE: SEP 10, 2024@13:16:55 ENTRY DATE: SEP 10, 2024@13:16:56 AUTHOR: THI GAN EXP COSIGNER: URGENCY: STATUS: COMPLETED Dr. Winters - appreciate your recommendation. I discuss the plan of care and RHC procedure and risk and benefits with . He would like to have RHC completed. I recommend against of LHC because he was interested in LHC again. I entered your recommendation in the order and comments of RHC. Dr. Matthews- as I informed you before wanted to repeat LHC but I recommend not to do right and left heart catheterization due to s/p kidney transplant. I explained that we need the RHC for further evaluation of a new pulmonary hypertension. I emphasized on using the lowest possible volume during RHC. He verbalized understanding. /ROCKY Adams PULMONARY ANP Signed: 09/10/2024 13:22 Receipt Acknowledged By: 09/10/2024 13:42 /kaylyn Winters MD STAFF PHYSICIAN - NEPHROLOGY 09/15/2024 14:50 /kaylyn MATTHEWS --- Original Document --- 08/30/24 PULMONARY OUTPATIENT FOLLOW UP [facility]: 69 year old MALE for Pulmonary Clinic follow up visit on 08/30/24 09:00. CHIEF COMPLAINT 4 month follow up primarily for new pulmonary hypertension, dyspnea and MEDARDO. HISTORY The patient is a 69 y/o male with PMH of cardiomyopathy, PP since 12/2018 2/2 chronotropic incompetence, DM T1 wears insulin pump, LHC 08/29/23 showed non obstructive CAD and increased LVEDP; s/p renal transplant, venous thrombosis, lymphedema, anemia of chr dz, HTN,MEDARDO,HTN,GERDS, VitD deficiency, diarrhea, depression, wound in his right third toe on the dorsal surface, DVT extensive right leg deep vein thrombosis with occlusion of the superficial femoral and popliteal veins, as well as partial occlusion of the posterior tibial and peroneal veins on May 04, 2013. Mr. Crespo reports stable dyspnea. He is able to walk ~ 100 feet w/o dyspnea. He was dx with new pulmonary hypertension on most recent ECHO. He reports cough increased in the evening time and in lying position. He denies hemoptysis, wheezing, night sweat. He reports vasomotor rhinitis. He denies heartburn or aspiration symptoms. 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 Eyes.....................Ne gative for BLURRED VISION/VISUAL CHANGES. Ears/Nose/Mouth/Throat...Ne gative for HEARING CHANGES/SINUS CONGESTION, OR SORE THROAT. Cardiovascular...........Ne gative for CHEST PAIN/PALPITATIONS. Respiratory..............Ne gative for COUGH/WHEEZING. Gastrointestinal.........Ne gative for DIARRHEA/CONSTIPATION/NAUSE A/VOMITING/ABDOMINAL PAIN/MELENA Genitourinary............Ne gative for DYSURIA/HESITANCY/URGENCY/I NCONTINENCE. Muscular.................Ne gative for CHANGES STRENGTH/JOINT PAIN, OR SWELLING. Integumentary............Ne gative for RASH/HIVES/BRUISING/DISCOLO RATION. Neurological.............Ne gative for LOC/LIGHTHEADEDNESS/DIZZINE SS/FOCAL WEAKNESS,OR PARESTHESIA Endocrine................Ne gative for GOITER/LETHARGY/HEAT - COLD INTOLERANCE. Hematologic/Lymphatic....Ne gative for PALLOR/SWELLING. Allergies/Immune.........Ne gative FOR CHANGE. Psychological.Negative for DEPRESSION/ANXIETY/MOOD CHANGES. PAST PULMONARY/MEDICAL HISTORY No hospitalization or ER visit for respiratory problem. Lifelong non-smoker. 1) Diabetic nephropathy (SNOMED CT 849304771) 2) Ulcer of lower Limb, unspecified (ICD-9-CM 707.10) 3) Erectile dysfunction due to diabetes mellitus (SNOMED CT 218360514) 4) Anemia in Chronic Kidney Disease (ICD-9-CM 285.21) 5) HTN - Hypertension (SNOMED CT 94484517) 6) GERD * (ICD-9-CM 530.81) 7) Acidosis, metabolic NEC (ICD-9-CM 276.2) 8) Diabetic nephropathy (SNOMED CT 966745841) 9) Hypertensive chronic kidney disease, unspecified, with chronic kidney disease St 10) History of - kidney recipient (SNOMED CT 353358848) 11) Other Fluid Overload (ICD-9-CM 276.69) 12) Anticoagulant effect 13) Insulin pump present 14) Sinus bradycardia 15) Permanent cardiac pacemaker 16) Therapeutic drug effect 17) Acute osteomyelitis of foot 18) History of venous thrombosis 19) Postthrombotic syndrome 20) Sleep apnea 21) Lack of exercise 22) Coronary artery disease 23) Osteopenia 24) Patent foramen ovale IM - IMMUNIZATIONS ADMINISTERED Immunization Series Date Facility Reaction Info COVID-19 (MODERNA), MRNA, LNP-S,* 1 05/31/2022 [facility]> COVID-19 (Apieron), MRNA, LNP-S, * 3 05/08/2021 [facility] COVID-19 (Apieron), MRNA, LNP-S, * 1 05/01/2021 [facility] COVID-19 (PFIZER), MRNA, LNP-S, * 2 10/22/2020 [facility] <C> COVID-19 (PFIZER), MRNA, LNP-S, * 1 10/01/2020 [facility] <C> COVID-19 (PFIZER), MRNA, LNP-S, * 1 11/01/2021 [facility] COVID-19 (PFIZER), MRNA, LNP-S, * 07/18/2024 [facility]* COVID-19 (PFIZER), MRNA, LNP-S, * 3 06/16/2023 [facility] INFLUENZA (HISTORICAL) 06/30/2004 [facility] (HISTORICAL) 07/11/2001 [facility]* INFLUENZA (HISTORICAL) 07/04/1996 [facility] INFLUENZA, HIGH-DOSE, QUADRIVALE* 06/09/2023 [facility] INFLUENZA, HIGH-DOSE, QUADRIVALE* 7 07/18/2022 [facility] INFLUENZA, HIGH-DOSE, QUADRIVALE* 5 06/30/2021 [facility] INFLUENZA, HIGH-DOSE, QUADRIVALE* 06/08/2020 [facility] INFLUENZA, HIGH-DOSE, TRIVALENT,* 07/18/2024 [facility] INFLUENZA, SPLIT VIRUS, QUADRIVA* C 06/13/2019 [facility] INFLUENZA, SPLIT VIRUS, TRIVALEN* 06/13/2016 [facility]* <C> INFLUENZA, SPLIT VIRUS, TRIVALEN* 3 06/12/2016 [facility] INFLUENZA, SPLIT VIRUS, TRIVALEN* 06/29/2015 [facility]* <C> INFLUENZA, SPLIT VIRUS, TRIVALEN* 2 06/28/2015 [facility] INFLUENZA, SPLIT VIRUS, TRIVALEN* 06/08/2017 [facility]* <C> INFLUENZA, SPLIT VIRUS, TRIVALEN* 4 06/07/2017 [facility] INFLUENZA, UNSPECIFIED FORMULATI* 6 06/11/2022 [facility] INFLUENZA, UNSPECIFIED FORMULATI* 06/23/2021 [facility]* INFLUENZA, UNSPECIFIED FORMULATI* 06/08/2018 [facility] * INFLUENZA, UNSPECIFIED FORMULATI* 06/09/2017 [facility]* INFLUENZA, UNSPECIFIED FORMULATI* [facility] INFLUENZA, UNSPECIFIED FORMULATI* [facility] INFLUENZA, UNSPECIFIED FORMULATI* 1 07/17/2014 [facility] INFLUENZA, UNSPECIFIED FORMULATI* [facility]* INFLUENZA, UNSPECIFIED FORMULATI* 06/18/2012 [facility]* INFLUENZA, UNSPECIFIED FORMULATI* 06/16/2011 [facility] INFLUENZA, UNSPECIFIED FORMULATI* 06/18/2010 [facility] INFLUENZA, UNSPECIFIED FORMULATI* 06/29/2009 Dr [facility]ijares* INFLUENZA, UNSPECIFIED FORMULATI* [facility]> INFLUENZA, UNSPECIFIED FORMULATI* 07/03/2007 [facility] INFLUENZA, UNSPECIFIED FORMULATI* 08/25/2006 [facility] INFLUENZA, UNSPECIFIED FORMULATI* 07/05/2005 [facility]* INFLUENZA, UNSPECIFIED FORMULATI* 06/30/2004 [facility]* INFLUENZA, UNSPECIFIED FORMULATI* 07/16/2002 [facility]* INFLUENZA, UNSPECIFIED FORMULATI* 07/11/2001 [facility]* PNEUMOCOCCAL CONJUGATE PCV 13 05/12/2015 [facility]* <C> PNEUMOCOCCAL POLYSACCHARIDE PPV23 01/16/2023 [facility] PNEUMOCOCCAL POLYSACCHARIDE PPV23 12/22/2017 [facility] PNEUMOCOCCAL POLYSACCHARIDE PPV23 03/11/2012 [facility]* <C> RSV, RECOMBINANT, PROTEIN SUBUNI* 1 08/31/2023 [facility] TDAP 05/09/2019 [facility] <C> TDAP Done here* [facility]OST[facility] RECOMBINANT [address] [facility] ZOSTER RECOMBINANT 1 12/27/2021 [facility] CONTRAINDICATED No data available REFUSED ======= Immunization Date Facility Info COVID-19 (MODERNA), MRNA, LNP-S,* 04/18/2024 [facility] <I> ACTIVE OUTPATIENT MEDICATIONS Active Outpatient Medications (including Supplies): Active Outpatient Medications Status 1) ACCU-CHEK GUIDE (GLUCOSE) TEST STRIP USE 1 STRIP FOR BLOOD ACTIVE TEST 6 TIMES A DAY *INSULIN PUMP THERAPY* Sep Indication: FOR BLOOD SUGAR MONITORING 2) APIXABAN 5MG TAB TAKE ONE TABLET BY MOUTH TWICE A DAY FOR ACTIVE ANTICOAGULATION 3) ATORVASTATIN CALCIUM 20MG TAB TAKE ONE-HALF TABLET BY MOUTH ACTIVE EVERY EVENING REPLACES SIMVASTATIN Indication: FOR HIGH CHOLESTEROL 4) BUMETANIDE 1MG TAB TAKE ONE TABLET BY MOUTH EVERY OTHER DAY ACTIVE REPLACES FUROSEMIDE Indication: FOR FLUID RETENTION (EDEMA) 5) COLESTIPOL HCL 1GM TAB TAKE ONE TABLET BY MOUTH EVERY ACTIVE MORNING AND EVENING (OTHER MEDICATIONS SHOULD BE TAKEN 1 HOUR BEFORE OR 4 HOURS AFTER COLESTIPOL) Indication: BILE SALT DIARRHEA 6) CONTOUR NEXT (GLUCOSE) TEST STRIP USE 1 STRIP FOR BLOOD TEST ACTIVE 6 TIMES A DAY Indication: FOR BLOOD SUGAR MONITORING 7) FERROUS SULFATE 325MG TAB TAKE ONE TABLET BY MOUTH ONCE A ACTIVE DAY FOR IRON SUPPLEMENTATION. 8) GLUCOSE 4GM CHEW TAB CHEW AND SWALLOW FOUR TABLETS BY MOUTH ACTIVE NEEDED REPEAT DOSE IF HYPOGLYCEMIA CONTINUES 15 MINUTES AFTER THE FIRST DOSE. Indication: FOR LOW BLOOD SUGAR 9) GLUCOSE SENSOR (4) GUARDIAN MMT-7040 USE 1 SENSOR UNDER THE ACTIVE SKIN EVERY WEEK Indication: FOR BLOOD SUGAR MONITORING 10) LISINOPRIL 40MG TAB TAKE ONE TABLET BY MOUTH ONCE A DAY FOR ACTIVE HEART OR BLOOD PRESSURE 11) METOPROLOL TARTRATE 100MG TAB TAKE ONE TABLET BY MOUTH TWICE ACTIVE A DAY FOR HEART/BLOOD PRESSURE. TAKE WITH OR IMMEDIATELY FOLLOWING FOOD. NEW DOSE 12) OMEPRAZOLE 40MG EC CAP TAKE ONE CAPSULE BY MOUTH EVERY ACTIVE (S) MORNING BEFORE A MEAL TO LOWER STOMACH ACID. TAKE 30 MINUTES PRIOR TO FOOD. 13) PREDNISONE 5MG TAB TAKE ONE TABLET BY MOUTH EVERY MORNING ACTIVE WITH FOOD 14) RESERVOIR,MINIMED #MMT-332A USE 1 RESERVOIR EVERY THREE ACTIVE (3) DAYS WITH INSULIN PUMP Indication: FOR DIABETES 15) SET,INFUSION MINIMED #MMT-396 USE 1 SET FOR UNDER THE SKIN ACTIVE EVERY THREE (3) DAYS TO BE USED WITH INSULIN PUMP. Indication: FOR INFUSION SET 16) SODIUM BICARBONATE 650MG TAB TAKE TWO TABLETS BY MOUTH TWICE ACTIVE A DAY 17) TACROLIMUS 1MG CAP TAKE TWO CAPSULES BY MOUTH EVERY MORNING ACTIVE AND TAKE ONE CAPSULE EVERY EVENING TO PREVENT TRANSPLANT REJECTION 18) TAMSULOSIN HCL 0.4MG CAP TAKE TWO CAPSULES BY MOUTH EVERY ACTIVE EVENING APPROXIMATELY 30 MINUTES AFTER THE SAME MEAL EACH DAY (FOR PROSTATE) Indication: FOR BENIGN PROSTATIC HYPERPLASIA MEDICATION NOTES Prednisone 5 mg daily s/p kidney transplant Tacrolimus 2 mg AM and 1 mg gHS Never use inhalers or suppl. O2 CPAP every night ALLERGIES MORPHINE PHYSICAL EXAMINATION Vital Signs: Temperature: 97.7 F [36.5 C] (08/30/2024 08:51) Blood Pressure: 144/55 (08/30/2024 08:51) Pulse: 79 (08/30/2024 08:51) Respirations: 20 (08/30/2024 08:51) Pain: 0 (08/30/2024 08:51) Patient Height:72 in [182.9 cm] (08/30/2024 08:51) Patient Weight:219.1 lb. [99.38 kg] (08/30/2024 08:51) BMI: 29.8 O2 saturation: 97% (08/30/2024 08:51) on RA General: NAD, breathing comfortably at rest on room air, well nourished, well developed. HEENT: No trauma, normal conjunctiva, ears, nasal mucosa, sinus palpation, and pharynx, PERRL, Neck: Supple, trachea midline, no JVD, thyromegaly, adenopathy. Heart: S1S2, regular rhythm without murmur, rub, gallop, 2+ pitting LA edema bilaterally, pulses 2+/rad Lungs: CTAB, no wheezing even with forced expiration. Abdomen: Bowel sounds present, soft, not distended, not tender, no hepatosplenomegaly. Extremities: Good pulses, no clubbing, cyanosis, edema. Skin: No rashes or lesions. MSK: abnormal gait, YI Neurologic: AoX4, responds appropriately, BOOGIE, CN II-XII grossly intact . SELECTED RESULTS REVIEWED Stress test 06/17/2024: CONCLUSIONS - Maximal exercise stress test. - [...] Lab in stable condition with NO symptoms. --------- ======= SUMMARY ======= -Non-ischemic ECG stress portion. -Poor functional capacity ``````````````````````````` ``````````````````````````` `````````` TTE CP TTE ECHOCARDIOGRAM 05/21/2024: Impression: 1. Normal left ventricular size. Mild left ventricular hypertrophy. 2. Global systolic function: Overall left ventricular systolic function is normal with an estimated ejection fraction of 55 - 60%. 3. Diastolic function: Mitral inflow pattern and tissue Doppler is consistent with mild diastolic dysfunction (grade Ib) and elevated left atrial filling pressure. 4. The left atrium is mildly enlarged. 5. The right ventricle is mildly enlarged. Borderline right ventricular systolic function. The right atrial size is upper normal. 6. Moderate pulmonary hypertension with an estimated right ventricular/pulmonary artery systolic pressure of 55 mmHg. 7. No hemodynamically significant valvular abnormality. 8. Agitated saline bubble study reveals right to left shunt with Valsalva only (10-20 bubbles/frame). Mobile interatrial septum. 9. As compared to the previous echocardiogram done on 06-07-2022, now see elevated pulmonary pressures. ALEJANDRA 03-24-2021 confirmed PFO. ``````````````````````````` ``````````````````````````` ````` Labs 08/20/2024: Creat 2.38 High H/H 12.2/36.4 Low IMPRESSION/RECOMMENDATIONS 1. Dyspnea, multifactorial possible due to deconditioning, obesity, cardiac problem, anemia of chronic disease, or less likely low DLCO. -- We discuss his respiratory problem and our approach to management. -- Review PFT 03/31/2023. There is a nonspecific reduction in expiratory flow that did not improve after inhaled bronchodilator. There is impairment of diffusing capacity but not oxygenation. There are no prior studies available for comparison. Repeat PFT to r/o low DLCO. -- Review Stress test 06/17/2024. Non-ischemic ECG stress portion. Poor functional capacity -- Ordered V/Q test to r/o PE due to chronic DVT. -- Review ECHO 05/21/2024. New diagnosed pulmonary hypertension. Possible secondary to cardiac disease. Right heart cauterization would be helpful to dx pre and post-capillary pulmonary hypertension. Will discuss with Dr. Winters signals intelligence analysis manager due to renal failure condition. -- 6MW by RT now. No needs for supplemental O2. -- Not a candidate for Retty, completed CARP FATEMEH last year successfully, long distance. -- Encourage daily physical activity as tolerate. 2. MEDARDO, on CPAP. 3. Tobacco use, lifelong non-smoker. -- Congratulated on remaining tobacco free 4. Immunization. UTD + RSV. -- Encouraged annual influenza vaccination 5. Pulmonary hypertension , new dx on ECHO 05/21/2024. Most likely Group 2 due to cardiac shunt, CHF, edema. No significant pulmonary disease on chest images or PFT. -- We discuss dx of pulmonary hypertension. I my opinion it is group 2. We timely discuss results of ECHO, right to left cardiac shunt, fluid overload, hx of venous thrombosis, MEDARDO and CAD. -- I recommend the right heart cath. Patient underwent left card cath in 04/2023. I will discuss this procedure with Dr. Winters signals intelligence analysis manager. -- No needs for supplemental O2. -- Use CPAP with every sleep. -- Encourage maintain healthy weight. -- Encouraged to exercise but patient stated that his tar man recommended against of exercise. Will discuss with cardiology. -- Encourage to monitor volume status. RTC in 4 mo. Plan of care has been discussed with who verbalizes understanding and is in agreement with the plan of care. Vet was advised to call or go to the nearest health facility if any worsening of respiratory symptoms like Chest pain, hemoptysis or SOB. Patient was instructed to keep all scheduled appointments and contact nurse practitioner if any additional problems occur after this appointment. I spent 45 minutes performing services for this patient: before, during and after the F2F visit today more than 50% of the provider's [id number] visit time with a patient is spent in counseling or coordination of care Dr. Winters - please recommend if patient can have the right heart cauterization for a new diagnosed pulmonary hypertension in light of kidney failure. Ideally, I would like to evaluate a new dx of pHTN (for pre and post-capillary hypertension) by RHC. Appreciate your professional opinion. /ROCKY Adams PULMONARY ANP Signed: 09/01/2024 18:06 Receipt Acknowledged By: 09/05/2024 11:30 /kaylyn Winters MD STAFF PHYSICIAN - NEPHROLOGY * AWAITING SIGNATURE * HELEN MATTHEWS 09/05/2024 ADDENDUM STATUS: COMPLETED If it is essential to make a diagnosis and determine treatment plan, then please go ahead. I would recommend using the lowest possible volume of a low osmolar contrast. Let me know what you plan and pt should be made aware of risks/benefits. Appreciate checking in. Thanks /kaylyn Winters MD STAFF PHYSICIAN - NEPHROLOGY Signed: 09/05/2024 11:33 Receipt Acknowledged By: 09/08/2024 16:56 /ROCKY Adams PULMONARY ANP 09/10/2024 ADDENDUM STATUS: COMPLETED I was able to make contact with and discuss results of a V/Q scan and a plan of care to get RHC fro further evaluation of pHTN. I discussed recommendation of signals intelligence analysis manager Dr. Winters with . He agreed to RHC and consult pulmonary hypertension clinic in [facility] if appropriate. /ROCKY Adams PULMONARY ANP Signed: 09/10/2024 13:01 THI GAN [facility] Sep 05, 2024 11:30 AM ADDENDUM: LOCAL TITLE: Addendum STANDARD TITLE: ADDENDUM DATE OF NOTE: SEP 05, 2024@11:30:56 ENTRY DATE: SEP 05, 2024@11:30:57 AUTHOR: SRI WINTERS EXP COSIGNER: URGENCY: STATUS: COMPLETED If it is essential to make a diagnosis and determine treatment plan, then please go ahead. I would recommend using the lowest possible volume of a low osmolar contrast. Let me know what you plan and pt should be made aware of risks/benefits. Appreciate checking in. Thanks /es/ Sri Winters MD STAFF PHYSICIAN - NEPHROLOGY Signed: 09/05/2024 11:33 Receipt Acknowledged By: 09/08/2024 16:56 /es/ ROCKY PARKER PULMONARY ANP --- Original Document --- 08/30/24 PULMONARY OUTPATIENT FOLLOW UP [facility]: 69 year old MALE for Pulmonary Clinic follow up visit on 08/30/24 09:00. CHIEF COMPLAINT 4 month follow up primarily for new pulmonary hypertension, dyspnea and MEDARDO. HISTORY The patient is a 69 y/o male with PMH of cardiomyopathy, PP since 12/2018 2/2 chronotropic incompetence, DM T1 wears insulin pump, LHC 05/09/23 showed non obstructive CAD and increased LVEDP; s/p renal transplant, venous thrombosis, lymphedema, anemia of chr dz, HTN,MEDARDO,HTN,GERDS, VitD deficiency, diarrhea, depression, wound in his right third toe on the dorsal surface, DVT extensive right leg deep vein thrombosis with occlusion of the superficial femoral and popliteal veins, as well as partial occlusion of the posterior tibial and peroneal veins on May 04, 2013. Mr. Crespo reports stable dyspnea. He is able to walk ~ 100 feet w/o dyspnea. He was dx with new pulmonary hypertension on most recent ECHO. He reports cough increased in the evening time and in lying position. He denies hemoptysis, wheezing, night sweat. He reports vasomotor rhinitis. He denies heartburn or aspiration symptoms. 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 Eyes.....................Ne gative for BLURRED VISION/VISUAL CHANGES. Ears/Nose/Mouth/Throat...Ne gative for HEARING CHANGES/SINUS CONGESTION, OR SORE THROAT. Cardiovascular...........Ne gative for CHEST PAIN/PALPITATIONS. Respiratory..............Ne gative for COUGH/WHEEZING. Gastrointestinal.........Ne gative for DIARRHEA/CONSTIPATION/NAUSE A/VOMITING/ABDOMINAL PAIN/MELENA Genitourinary............Ne gative for DYSURIA/HESITANCY/URGENCY/I NCONTINENCE. Muscular.................Ne gative for CHANGES STRENGTH/JOINT PAIN, OR SWELLING. Integumentary............Ne gative for RASH/HIVES/BRUISING/DISCOLO RATION. Neurological.............Ne gative for LOC/LIGHTHEADEDNESS/DIZZINE SS/FOCAL WEAKNESS,OR PARESTHESIA Endocrine................Ne gative for GOITER/LETHARGY/HEAT - COLD INTOLERANCE. Hematologic/Lymphatic....Ne gative for PALLOR/SWELLING. Allergies/Immune.........Ne gative FOR CHANGE. Psychological.Negative for DEPRESSION/ANXIETY/MOOD CHANGES. PAST PULMONARY/MEDICAL HISTORY No hospitalization or ER visit for respiratory problem. Lifelong non-smoker. 1) Diabetic nephropathy (SNOMED CT 739828101) 2) Ulcer of lower Limb, unspecified (ICD-9-CM 707.10) 3) Erectile dysfunction due to diabetes mellitus (SNOMED CT 289445918) 4) Anemia in Chronic Kidney Disease (ICD-9-CM 285.21) 5) HTN - Hypertension (SNOMED CT 86805988) 6) GERD * (ICD-9-CM 530.81) 7) Acidosis, metabolic NEC (ICD-9-CM 276.2) 8) Diabetic nephropathy (SNOMED CT 086077521) 9) Hypertensive chronic kidney disease, unspecified, with chronic kidney disease St 10) History of - kidney recipient (SNOMED CT 559335034) 11) Other Fluid Overload (ICD-9-CM 276.69) 12) Anticoagulant effect 13) Insulin pump present 14) Sinus bradycardia 15) Permanent cardiac pacemaker 16) Therapeutic drug effect 17) Acute osteomyelitis of foot 18) History of venous thrombosis 19) Postthrombotic syndrome 20) Sleep apnea 21) Lack of exercise 22) Coronary artery disease 23) Osteopenia 24) Patent foramen ovale IM - IMMUNIZATIONS ADMINISTERED Immunization Series Date Facility Reaction Info COVID-19 (MODERNA), MRNA, LNP-S,* 1 05/31/2022 [facility] <C> COVID-19 (Apieron), MRNA, LNP-S, * 3 05/08/2021 [facility]* COVID-19 (PFIZER), MRNA, LNP-S, * 1 05/01/2021 [facility] COVID-19 (Apieron), MRNA, LNP-S, * 2 10/22/2020 [facility] <C> COVID-19 (PFIZER), MRNA, LNP-S, * 1 10/01/2020 [facility]* <C> COVID-19 (PFIZER), MRNA, LNP-S, * 1 11/01/2021 [facility] COVID-19 (Apieron), MRNA, LNP-S, * 07/18/2024 [facility]* COVID-19 (PFIZER), MRNA, LNP-S, * 3 06/16/2023 [facility] INFLUENZA (HISTORICAL) 06/30/2004 [facility] INFLUENZA (HISTORICAL) 07/11/2001 [facility]* INFLUENZA (HISTORICAL) 07/04/1996 [facility] INFLUENZA, HIGH-DOSE, QUADRIVALE* 06/09/2023 [facility] INFLUENZA, HIGH-DOSE, QUADRIVALE* 7 07/18/2022 [facility] INFLUENZA, HIGH-DOSE, QUADRIVALE* 5 06/30/2021 [facility] INFLUENZA, HIGH-DOSE, QUADRIVALE* 06/08/2020 [facility]* INFLUENZA, HIGH-DOSE, TRIVALENT,* 07/18/2024 [facility] INFLUENZA, SPLIT VIRUS, QUADRIVA* C 06/13/2019 [facility] INFLUENZA, SPLIT VIRUS, TRIVALEN* 06/13/2016 [facility]* <C> INFLUENZA, SPLIT VIRUS, TRIVALEN* 3 06/12/2016 [facility] INFLUENZA, SPLIT VIRUS, TRIVALEN* 06/29/2015 [facility]* <C> INFLUENZA, SPLIT VIRUS, TRIVALEN* 2 06/28/2015 [facility] INFLUENZA, SPLIT VIRUS, TRIVALEN* 06/08/2017 [facility]* <C> INFLUENZA, SPLIT VIRUS, TRIVALEN* 4 06/07/2017 [facility] INFLUENZA, UNSPECIFIED FORMULATI* 6 06/11/2022 [facility] INFLUENZA, UNSPECIFIED FORMULATI* 06/23/2021 [facility]* INFLUENZA, UNSPECIFIED FORMULATI* 06/08/2018 [facility] * INFLUENZA, UNSPECIFIED FORMULATI* 06/09/2017 [facility]* INFLUENZA, UNSPECIFIED FORMULATI* [facility] INFLUENZA, UNSPECIFIED FORMULATI* [facility] INFLUENZA, UNSPECIFIED FORMULATI* 1 07/17/2014 [facility] INFLUENZA, UNSPECIFIED FORMULATI* [facility]* INFLUENZA, UNSPECIFIED FORMULATI* 06/18/2012 [facility]* INFLUENZA, UNSPECIFIED FORMULATI* 06/16/2011 [facility] INFLUENZA, UNSPECIFIED FORMULATI* 06/18/2010 [facility] INFLUENZA, UNSPECIFIED FORMULATI* 06/29/2009 Dr mij[facility]* INFLUENZA, UNSPECIFIED FORMULATI* 07/01/2008 [place] <C> INFLUENZA, UNSPECIFIED FORMULATI* 07/03/2007 [facility] INFLUENZA, UNSPECIFIED FORMULATI* 08/25/2006 [facility]* INFLUENZA, UNSPECIFIED FORMULATI* 07/05/2005 [facility]* INFLUENZA, UNSPECIFIED FORMULATI* 06/30/2004 [facility]* INFLUENZA, UNSPECIFIED FORMULATI* 07/16/2002 [facility]* INFLUENZA, UNSPECIFIED FORMULATI* 07/11/2001 [facility]* PNEUMOCOCCAL CONJUGATE PCV 13 05/12/2015 [facility] <C> PNEUMOCOCCAL POLYSACCHARIDE PPV23 01/16/2023 [facility] PNEUMOCOCCAL POLYSACCHARIDE PPV23 12/22/2017 [facility] PNEUMOCOCCAL POLYSACCHARIDE PPV23 03/11/2012 [facility] <C> RSV, RECOMBINANT, PROTEIN SUBUNI* 1 08/31/2023 [facility] TDAP 05/09/2019 [facility]* <C> TDAP Done here* ZOSTER RECOMBINANT [address] [facility]* ZOSTER RECOMBINANT 1 12/27/2021 [facility] CONTRAINDICATED No data available REFUSED ======= Immunization Date Facility Info COVID-19 (MODERNA), MRNA, LNP-S,* 04/18/2024 [facility] <I> ACTIVE OUTPATIENT MEDICATIONS Active Outpatient Medications (including Supplies): Active Outpatient Medications Status 1) ACCU-CHEK GUIDE (GLUCOSE) TEST STRIP USE 1 STRIP FOR BLOOD ACTIVE TEST 6 TIMES A DAY *INSULIN PUMP THERAPY* Sep Indication: FOR BLOOD SUGAR MONITORING 2) APIXABAN 5MG TAB TAKE ONE TABLET BY MOUTH TWICE A DAY FOR ACTIVE ANTICOAGULATION 3) ATORVASTATIN CALCIUM 20MG TAB TAKE ONE-HALF TABLET BY MOUTH ACTIVE EVERY EVENING REPLACES SIMVASTATIN Indication: FOR HIGH CHOLESTEROL 4) BUMETANIDE 1MG TAB TAKE ONE TABLET BY MOUTH EVERY OTHER DAY ACTIVE REPLACES FUROSEMIDE Indication: FOR FLUID RETENTION (EDEMA) 5) COLESTIPOL HCL 1GM TAB TAKE ONE TABLET BY MOUTH EVERY ACTIVE MORNING AND EVENING (OTHER MEDICATIONS SHOULD BE TAKEN 1 HOUR BEFORE OR 4 HOURS AFTER COLESTIPOL) Indication: BILE SALT DIARRHEA 6) CONTOUR NEXT (GLUCOSE) TEST STRIP USE 1 STRIP FOR BLOOD TEST ACTIVE 6 TIMES A DAY Indication: FOR BLOOD SUGAR MONITORING 7) FERROUS SULFATE 325MG TAB TAKE ONE TABLET BY MOUTH ONCE A ACTIVE DAY FOR IRON SUPPLEMENTATION. 8) GLUCOSE 4GM CHEW TAB CHEW AND SWALLOW FOUR TABLETS BY MOUTH ACTIVE NEEDED REPEAT DOSE IF HYPOGLYCEMIA CONTINUES 15 MINUTES AFTER THE FIRST DOSE. Indication: FOR LOW BLOOD SUGAR 9) GLUCOSE SENSOR (4) GUARDIAN MMT-7040 USE 1 SENSOR UNDER THE ACTIVE SKIN EVERY WEEK Indication: FOR BLOOD SUGAR MONITORING 10) LISINOPRIL 40MG TAB TAKE ONE TABLET BY MOUTH ONCE A DAY FOR ACTIVE HEART OR BLOOD PRESSURE 11) METOPROLOL TARTRATE 100MG TAB TAKE ONE TABLET BY MOUTH TWICE ACTIVE A DAY FOR HEART/BLOOD PRESSURE. TAKE WITH OR IMMEDIATELY FOLLOWING FOOD. NEW DOSE 12) OMEPRAZOLE 40MG EC CAP TAKE ONE CAPSULE BY MOUTH EVERY ACTIVE (S) MORNING BEFORE A MEAL TO LOWER STOMACH ACID. TAKE 30 MINUTES PRIOR TO FOOD. 13) PREDNISONE 5MG TAB TAKE ONE TABLET BY MOUTH EVERY MORNING ACTIVE WITH FOOD 14) RESERVOIR,MINIMED #[id number] USE 1 RESERVOIR EVERY THREE ACTIVE (3) DAYS WITH INSULIN PUMP Indication: FOR DIABETES 15) SET,INFUSION MINIMED #MMT-396 USE 1 SET FOR UNDER THE SKIN ACTIVE EVERY THREE (3) DAYS TO BE USED WITH INSULIN PUMP. Indication: FOR INFUSION SET 16) SODIUM BICARBONATE 650MG TAB TAKE TWO TABLETS BY MOUTH TWICE ACTIVE A DAY 17) TACROLIMUS 1MG CAP TAKE TWO CAPSULES BY MOUTH EVERY MORNING ACTIVE AND TAKE ONE CAPSULE EVERY EVENING TO PREVENT TRANSPLANT REJECTION 18) TAMSULOSIN HCL 0.4MG CAP TAKE TWO CAPSULES BY MOUTH EVERY ACTIVE EVENING APPROXIMATELY 30 MINUTES AFTER THE SAME MEAL EACH DAY (FOR PROSTATE) Indication: FOR BENIGN PROSTATIC HYPERPLASIA MEDICATION NOTES Prednisone 5 mg daily s/p kidney transplant Tacrolimus 2 mg AM and 1 mg gHS Never use inhalers or suppl. O2 CPAP every night ALLERGIES MORPHINE PHYSICAL EXAMINATION Vital Signs: Temperature: 97.7 F [36.5 C] (08/30/2024 08:51) Blood Pressure: 144/55 (08/30/2024 08:51) Pulse: 79 (08/30/2024 08:51) Respirations: 20 (08/30/2024 08:51) Pain: 0 (08/30/2024 08:51) Patient Height:72 in [182.9 cm] (08/30/2024 08:51) Patient Weight:219.1 lb. [99.38 kg] (08/30/2024 08:51) BMI: 29.8 O2 saturation: 97% (08/30/2024 08:51) on RA General: NAD, breathing comfortably at rest on room air, well nourished, well developed. HEENT: No trauma, normal conjunctiva, ears, nasal mucosa, sinus palpation, and pharynx, PERRL, Neck: Supple, trachea midline, no JVD, thyromegaly, adenopathy. Heart: S1S2, regular rhythm without murmur, rub, gallop, 2+ pitting LA edema bilaterally, pulses 2+/rad Lungs: CTAB, no wheezing even with forced expiration. Abdomen: Bowel sounds present, soft, not distended, not tender, no hepatosplenomegaly. Extremities: Good pulses, no clubbing, cyanosis, edema. Skin: No rashes or lesions. MSK: abnormal gait, YI Neurologic: AoX4, responds appropriately, BOOGIE, CN II-XII grossly intact . SELECTED RESULTS REVIEWED Stress test 06/17/2024: CONCLUSIONS - Maximal exercise stress test. - [...] Lab in stable condition with NO symptoms. --------- ======= SUMMARY ======= -Non-ischemic ECG stress portion. -Poor functional capacity ``````````````````````````` ``````````````````````````` `````````` TTE CP TTE ECHOCARDIOGRAM 05/21/2024: Impression: 1. Normal left ventricular size. Mild left ventricular hypertrophy. 2. Global systolic function: Overall left ventricular systolic function is normal with an estimated ejection fraction of 55 - 60%. 3. Diastolic function: Mitral inflow pattern and tissue Doppler is consistent with mild diastolic dysfunction (grade Ib) and elevated left atrial filling pressure. 4. The left atrium is mildly enlarged. 5. The right ventricle is mildly enlarged. Borderline right ventricular systolic function. The right atrial size is upper normal. 6. Moderate pulmonary hypertension with an estimated right ventricular/pulmonary artery systolic pressure of 55 mmHg. 7. No hemodynamically significant valvular abnormality. 8. Agitated saline bubble study reveals right to left shunt with Valsalva only (10-20 bubbles/frame). Mobile interatrial septum. 9. As compared to the previous echocardiogram done on 06-07-2022, now see elevated pulmonary pressures. ALEJANDRA 03-24-2021 confirmed PFO. ``````````````````````````` ``````````````````````````` ````` Labs 08/20/2024: Creat 2.38 High H/H 12.2/36.4 Low IMPRESSION/RECOMMENDATIONS 1. Dyspnea, multifactorial possible due to deconditioning, obesity, cardiac problem, anemia of chronic disease, or less likely low DLCO. -- We discuss his respiratory problem and our approach to management. -- Review PFT 03/31/2023. There is a nonspecific reduction in expiratory flow that did not improve after inhaled bronchodilator. There is impairment of diffusing capacity but not oxygenation. There are no prior studies available for comparison. Repeat PFT to r/o low DLCO. -- Review Stress test 06/17/2024. Non-ischemic ECG stress portion. Poor functional capacity -- Ordered V/Q test to r/o PE due to chronic DVT. -- Review ECHO 05/21/2024. New diagnosed pulmonary hypertension. Possible secondary to cardiac disease. Right heart cauterization would be helpful to dx pre and post-capillary pulmonary hypertension. Will discuss with Dr. Winters signals intelligence analysis manager due to renal failure condition. -- 6MW by RT now. No needs for supplemental O2. -- Not a candidate for CARP, completed CARP FATEMEH last year successfully, long distance. -- Encourage daily physical activity as tolerate. 2. MEDARDO, on CPAP. 3. Tobacco use, lifelong non-smoker. -- Congratulated on remaining tobacco free 4. Immunization. UTD + RSV. -- Encouraged annual influenza vaccination 5. Pulmonary hypertension , new dx on ECHO 05/21/2024. Most likely Group 2 due to cardiac shunt, CHF, edema. No significant pulmonary disease on chest images or PFT. -- We discuss dx of pulmonary hypertension. I my opinion it is group 2. We timely discuss results of ECHO, right to left cardiac shunt, fluid overload, hx of venous thrombosis, MEDARDO and CAD. -- I recommend the right heart cath. Patient underwent left card cath in 04/2023. I will discuss this procedure with Dr. Winters signals intelligence analysis manager. -- No needs for supplemental O2. -- Use CPAP with every sleep. -- Encourage maintain healthy weight. -- Encouraged to exercise but patient stated that his tar man recommended against of exercise. Will discuss with cardiology. -- Encourage to monitor volume status. RTC in 4 mo. Plan of care has been discussed with who verbalizes understanding and is in agreement with the plan of care. Vet was advised to call or go to the nearest health facility if any worsening of respiratory symptoms like Chest pain, hemoptysis or SOB. Patient was instructed to keep all scheduled appointments and contact nurse practitioner if any additional problems occur after this appointment. I spent 45 minutes performing services for this patient: before, during and after the F2F visit today more than 50% of the provider's [id number] visit time with a patient is spent in counseling or coordination of care Dr. Winters - please recommend if patient can have the right heart cauterization for a new diagnosed pulmonary hypertension in light of kidney failure. Ideally, I would like to evaluate a new dx of pHTN (for pre and post-capillary hypertension) by RHC. Appreciate your professional opinion. /charly/ ROCKY PARKER PULMONARY ANP Signed: 09/01/2024 18:06 Receipt Acknowledged By: 09/05/2024 11:30 /charly/ Sri Winters MD STAFF PHYSICIAN - NEPHROLOGY * AWAITING SIGNATURE * HELEN MATTHEWS [facility] Aug 30, 2024 09:52 AM RESPIRATORY THERAP Y NOTE: LOCAL TITLE: RESPIRATORY THERAPY ST STANDARD TITLE: RESPIRATORY THERAPY NOTE DATE OF NOTE: AUG 30, 2024@09:52 ENTRY DATE: AUG 30, 2024@09:52:42 AUTHOR: YOHAN VILLATORO EXP COSIGNER: URGENCY: STATUS: COMPLETED Home Oxygen Assessment Time of Procedure: 934 Resting Room Air Sats: 98%% Ambulation oxygen saturation and heart rate on room air: 1 minute 97%02 SAT 92HR 2 minutes 96%02 SAT 111HR 3 minutes 96%02 SAT 124HR 4 minutes 96%02 SAT 130HR 5 minutes %02 SAT HR 6 minutes %02 SAT HR Resting Oxygen Saturation on: LPM % Ambulation oxygen saturation and heart rate on: LPM 1 minute %02 SAT HR 2 minutes %02 SAT HR 3 minutes %02 SAT HR 4 minutes %02 SAT HR 5 minutes %02 SAT HR 6 minutes %02 SAT HR RECOMMENDATION Patient requires NO OXYGEN AT THIS TIME. 0 liters to attain 97%Oxygen saturation at rest 0 liters during exercise to attain 96%Oxygen saturation Comments: Patient attempted 6 minute walk for Supplemental Oxygen Evaluation. Patient requested to stop his walk study at 4.5 Minutes due to muscle fatigue caused by his neuropathy. At this time patient appeared somewhat wobbly on his feet and displayed some SOB. Patient was able to travel a total of 450 feet during the walk study. Patient stayed on RA throughout the length of his walk. Patients Highest HR 130, Lowest SpO2 96%. /charly/ YOHAN VILLATORO RESPIRATORY THERAPIST Signed: 08/30/2024 10:08 Receipt Acknowledged By: 09/01/2024 17:59 /charly/ ROCKY PARKER PULMONARY ANP 08/30/2024 13:26 /charly/ Paty Devi DREDGE MASTER Asst Chief of Respiratory Care YOHAN VILLATORO [facility] Aug 30, 2024 09:11 AM PULMONARY OUTPATIE NT NOTE: LOCAL TITLE: PULMONARY OUTPATIENT FOLLOW UP [facility] STANDARD TITLE: PULMONARY OUTPATIENT NOTE DATE OF NOTE: AUG 30, 2024@09:11 ENTRY DATE: AUG 30, 2024@09:11:30 AUTHOR: THI GAN COSIGNER: URGENCY: STATUS: COMPLETED PULMONARY OUTPATIENT FOLLOW UP [facility] Has ADDENDA 69 year old MALE for Pulmonary Clinic follow up visit on 08/30/24 09:00. CHIEF COMPLAINT 4 month follow up primarily for new pulmonary hypertension, dyspnea and MEDARDO. HISTORY The patient is a 69 y/o male with PMH of cardiomyopathy, PP since 12/2018 2/2 chronotropic incompetence, DM T1 wears insulin pump, LHC 05/09/23 showed non obstructive CAD and increased LVEDP; s/p renal transplant, venous thrombosis, lymphedema, anemia of chr dz, HTN,MEDARDO,HTN,GERDS, VitD deficiency, diarrhea, depression, wound in his right third toe on the dorsal surface, DVT extensive right leg deep vein thrombosis with occlusion of the superficial femoral and popliteal veins, as well as partial occlusion of the posterior tibial and peroneal veins on May 04, 2013. Mr. Crespo reports stable dyspnea. He is able to walk ~ 100 feet w/o dyspnea. He was dx with new pulmonary hypertension on most recent ECHO. He reports cough increased in the evening time and in lying position. He denies hemoptysis, wheezing, night sweat. He reports vasomotor rhinitis. He denies heartburn or aspiration symptoms. 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 Eyes.....................Ne gative for BLURRED VISION/VISUAL CHANGES. Ears/Nose/Mouth/Throat...Ne gative for HEARING CHANGES/SINUS CONGESTION, OR SORE THROAT. Cardiovascular...........Ne gative for CHEST PAIN/PALPITATIONS. Respiratory..............Ne gative for COUGH/WHEEZING. Gastrointestinal.........Ne gative for DIARRHEA/CONSTIPATION/NAUSE A/VOMITING/ABDOMINAL PAIN/MELENA Genitourinary............Ne gative for DYSURIA/HESITANCY/URGENCY/I NCONTINENCE. Muscular.................Ne gative for CHANGES STRENGTH/JOINT PAIN, OR SWELLING. Integumentary............Ne gative for RASH/HIVES/BRUISING/DISCOLO RATION. Neurological.............Ne gative for LOC/LIGHTHEADEDNESS/DIZZINE SS/FOCAL WEAKNESS,OR PARESTHESIA Endocrine................Ne gative for GOITER/LETHARGY/HEAT - COLD INTOLERANCE. Hematologic/Lymphatic....Ne gative for PALLOR/SWELLING. Allergies/Immune.........Ne gative FOR CHANGE. Psychological.Negative for DEPRESSION/ANXIETY/MOOD CHANGES. PAST PULMONARY/MEDICAL HISTORY No hospitalization or ER visit for respiratory problem. Lifelong non-smoker. 1) Diabetic nephropathy (SNOMED CT 333212905) 2) Ulcer of lower Limb, unspecified (ICD-9-CM 707.10) 3) Erectile dysfunction due to diabetes mellitus (SNOMED CT 166261480) 4) Anemia in Chronic Kidney Disease (ICD-9-CM 285.21) 5) HTN - Hypertension (SNOMED CT 52171300) 6) GERD * (ICD-9-CM 530.81) 7) Acidosis, metabolic NEC (ICD-9-CM 276.2) 8) Diabetic nephropathy (SNOMED CT 853473163) 9) Hypertensive chronic kidney disease, unspecified, with chronic kidney disease St 10) History of - kidney recipient (SNOMED CT 890078313) 11) Other Fluid Overload (ICD-9-CM 276.69) 12) Anticoagulant effect 13) Insulin pump present 14) Sinus bradycardia 15) Permanent cardiac pacemaker 16) Therapeutic drug effect 17) Acute osteomyelitis of foot 18) History of venous thrombosis 19) Postthrombotic syndrome 20) Sleep apnea 21) Lack of exercise 22) Coronary artery disease 23) Osteopenia 24) Patent foramen ovale IM - IMMUNIZATIONS ADMINISTERED Immunization Series Date Facility Reaction Info COVID-19 (MODERNA), MRNA, LNP-S,* 1 05/31/2022 [facility] <C> COVID-19 (PFIZER), MRNA, LNP-S, * 3 05/08/2021 [facility] COVID-19 (PFIZER), MRNA, LNP-S, * 1 05/01/2021 [facility] COVID-19 (PFIZER), MRNA, LNP-S, * 2 10/22/2020 [facility] <C> COVID-19 (PFIZER), MRNA, LNP-S, * 1 10/01/2020 [facility] <C> COVID-19 (PFIZER), MRNA, LNP-S, * 1 11/01/2021 [facility] COVID-19 (PFIZER), MRNA, LNP-S, * 07/18/2024 [facility]* COVID-19 (PFIZER), MRNA, LNP-S, * 3 06/16/2023 [facility] INFLUENZA (HISTORICAL) 06/30/2004 [facility] INFLU[facility]ZA (HISTORICAL) 07/11/2001 [facility]* INFLUENZA (HISTORICAL) 07/04/1996 [facility] INFLUENZA, HIGH-DOSE, QUADRIVALE* 06/09/2023 [facility] INFLUENZA, HIGH-DOSE, QUADRIVALE* 7 07/18/2022 [facility] INFLUENZA, HIGH-DOSE, QUADRIVALE* 5 06/30/2021 [facility] INFLUENZA, HIGH-DOSE, QUADRIVALE* 06/08/2020 [facility] INFLUENZA, HIGH-DOSE, TRIVALENT,* 07/18/2024 [facility] INFLUENZA, SPLIT VIRUS, QUADRIVA* C 06/13/2019 [facility] INFLUENZA, SPLIT VIRUS, TRIVALEN* 06/13/2016 [facility]* <C> INFLUENZA, SPLIT VIRUS, TRIVALEN* 3 06/12/2016 [facility] INFLUEN[facility], SPLIT VIRUS, TRIVALEN* 06/29/2015 [facility]* <C> INFLUENZA, SPLIT VIRUS, TRIVALEN* 2 06/28/2015 [facility] INFLUEN[facility], SPLIT VIRUS, TRIVALEN* 06/08/2017 [facility]* <C> INFLUENZA, SPLIT VIRUS, TRIVALEN* 4 06/07/2017 [facility] INFLUENZA, UNSPECIFIED FORMULATI* 6 06/11/2022 [facility] INFLUENZA, UNSPECIFIED FORMULATI* 06/23/2021 [facility]* INFLUENZA, UNSPECIFIED FORMULATI* 06/08/2018 [facility] * INFLUENZA, UNSPECIFIED FORMULATI* 06/09/2017 [facility]* INFLUENZA, UNSPECIFIED FORMULATI* [facility] INFLUENZA, UNSPECIFIED FORMULATI* [facility] INFLUENZA, UNSPECIFIED FORMULATI* 1 07/17/2014 [facility] INFLUENZA, UNSPECIFIED FORMULATI* [facility]* INFLUENZA, UNSPECIFIED FORMULATI* 06/18/2012 [facility]* INFLUENZA, UNSPECIFIED FORMULATI* 06/16/2011 [facility] INFLUENZA, UNSPECIFIED FORMULATI* 06/18/2010 [facility] INFLUENZA, UNSPECIFIED FORMULATI* 06/29/2009 Dr [facility]* INFLUENZA, UNSPECIFIED FORMULATI* 07/01/2008 [place] <C> INFLUENZA, UNSPECIFIED FORMULATI* 07/03/2007 [facility] INFLUENZA, UNSPECIFIED FORMULATI* 08/25/2006 [facility] INFLUENZA, UNSPECIFIED FORMULATI* 07/05/2005 [facility] INFLUENZA, UNSPECIFIED FORMULATI* 06/30/2004 [facility] INFLUENZA, UNSPECIFIED FORMULATI* 07/16/2002 [facility]* INFLUENZA, UNSPECIFIED FORMULATI* 07/11/2001 [facility]* PNEUMOCOCCAL CONJUGATE PCV 13 05/12/2015 [facility]* <C> PNEUMOCOCCAL POLYSACCHARIDE PPV23 01/16/2023 [facility] PNEUMOCOCCAL POLYSACCHARIDE PPV23 12/22/2017 [facility] PNEUMOCOCCAL POLYSACCHARIDE PPV23 03/11/2012 [facility]* <C> RSV, RECOMBINANT, PROTEIN SUBUNI* 1 08/31/2023 [facility] TDAP 05/09/2019 [facility] <C> TDAP Done here* ZOSTER RECOMBINANT [address] [facility]* ZOSTER RECOMBINANT 1 12/27/2021 [facility]* CONTRAINDICATED No data available REFUSED ======= Immunization Date Facility Info COVID-19 (MODERNA), MRNA, LNP-S,* 04/18/2024 [facility] <I> ACTIVE OUTPATIENT MEDICATIONS Active Outpatient Medications (including Supplies): Active Outpatient Medications Status 1) ACCU-CHEK GUIDE (GLUCOSE) TEST STRIP USE 1 STRIP FOR BLOOD ACTIVE TEST 6 TIMES A DAY *INSULIN PUMP THERAPY* Sep Indication: FOR BLOOD SUGAR MONITORING 2) APIXABAN 5MG TAB TAKE ONE TABLET BY MOUTH TWICE A DAY FOR ACTIVE ANTICOAGULATION 3) ATORVASTATIN CALCIUM 20MG TAB TAKE ONE-HALF TABLET BY MOUTH ACTIVE EVERY EVENING REPLACES SIMVASTATIN Indication: FOR HIGH CHOLESTEROL 4) BUMETANIDE 1MG TAB TAKE ONE TABLET BY MOUTH EVERY OTHER DAY ACTIVE REPLACES FUROSEMIDE Indication: FOR FLUID RETENTION (EDEMA) 5) COLESTIPOL HCL 1GM TAB TAKE ONE TABLET BY MOUTH EVERY ACTIVE MORNING AND EVENING (OTHER MEDICATIONS SHOULD BE TAKEN 1 HOUR BEFORE OR 4 HOURS AFTER COLESTIPOL) Indication: BILE SALT DIARRHEA 6) CONTOUR NEXT (GLUCOSE) TEST STRIP USE 1 STRIP FOR BLOOD TEST ACTIVE 6 TIMES A DAY Indication: FOR BLOOD SUGAR MONITORING 7) FERROUS SULFATE 325MG TAB TAKE ONE TABLET BY MOUTH ONCE A ACTIVE DAY FOR IRON SUPPLEMENTATION. 8) GLUCOSE 4GM CHEW TAB CHEW AND SWALLOW FOUR TABLETS BY MOUTH ACTIVE NEEDED REPEAT DOSE IF HYPOGLYCEMIA CONTINUES 15 MINUTES AFTER THE FIRST DOSE. Indication: FOR LOW BLOOD SUGAR 9) GLUCOSE SENSOR (4) GUARDIAN MMT-7040 USE 1 SENSOR UNDER THE ACTIVE SKIN EVERY WEEK Indication: FOR BLOOD SUGAR MONITORING 10) LISINOPRIL 40MG TAB TAKE ONE TABLET BY MOUTH ONCE A DAY FOR ACTIVE HEART OR BLOOD PRESSURE 11) METOPROLOL TARTRATE 100MG TAB TAKE ONE TABLET BY MOUTH TWICE ACTIVE A DAY FOR HEART/BLOOD PRESSURE. TAKE WITH OR IMMEDIATELY FOLLOWING FOOD. NEW DOSE 12) OMEPRAZOLE 40MG EC CAP TAKE ONE CAPSULE BY MOUTH EVERY ACTIVE (S) MORNING BEFORE A MEAL TO LOWER STOMACH ACID. TAKE 30 MINUTES PRIOR TO FOOD. 13) PREDNISONE 5MG TAB TAKE ONE TABLET BY MOUTH EVERY MORNING ACTIVE WITH FOOD 14) RESERVOIR,MINIMED #[id number] USE 1 RESERVOIR EVERY THREE ACTIVE (3) DAYS WITH INSULIN PUMP Indication: FOR DIABETES 15) SET,INFUSION MINIMED #MMT-396 USE 1 SET FOR UNDER THE SKIN ACTIVE EVERY THREE (3) DAYS TO BE USED WITH INSULIN PUMP. Indication: FOR INFUSION SET 16) SODIUM BICARBONATE 650MG TAB TAKE TWO TABLETS BY MOUTH TWICE ACTIVE A DAY 17) TACROLIMUS 1MG CAP TAKE TWO CAPSULES BY MOUTH EVERY MORNING ACTIVE AND TAKE ONE CAPSULE EVERY EVENING TO PREVENT TRANSPLANT REJECTION 18) TAMSULOSIN HCL 0.4MG CAP TAKE TWO CAPSULES BY MOUTH EVERY ACTIVE EVENING APPROXIMATELY 30 MINUTES AFTER THE SAME MEAL EACH DAY (FOR PROSTATE) Indication: FOR BENIGN PROSTATIC HYPERPLASIA MEDICATION NOTES Prednisone 5 mg daily s/p kidney transplant Tacrolimus 2 mg AM and 1 mg gHS Never use inhalers or suppl. O2 CPAP every night ALLERGIES MORPHINE PHYSICAL EXAMINATION Vital Signs: Temperature: 97.7 F [36.5 C] (08/30/2024 08:51) Blood Pressure: 144/55 (08/30/2024 08:51) Pulse: 79 (08/30/2024 08:51) Respirations: 20 (08/30/2024 08:51) Pain: 0 (08/30/2024 08:51) Patient Height:72 in [182.9 cm] (08/30/2024 08:51) Patient Weight:219.1 lb. [99.38 kg] (08/30/2024 08:51) BMI: 29.8 O2 saturation: 97% (08/30/2024 08:51) on RA General: NAD, breathing comfortably at rest on room air, well nourished, well developed. HEENT: No trauma, normal conjunctiva, ears, nasal mucosa, sinus palpation, and pharynx, PERRL, Neck: Supple, trachea midline, no JVD, thyromegaly, adenopathy. Heart: S1S2, regular rhythm without murmur, rub, gallop, 2+ pitting LA edema bilaterally, pulses 2+/rad Lungs: CTAB, no wheezing even with forced expiration. Abdomen: Bowel sounds present, soft, not distended, not tender, no hepatosplenomegaly. Extremities: Good pulses, no clubbing, cyanosis, edema. Skin: No rashes or lesions. MSK: abnormal gait, YI Neurologic: AoX4, responds appropriately, BOOGIE, CN II-XII grossly intact . SELECTED RESULTS REVIEWED Stress test 06/17/2024: CONCLUSIONS - Maximal exercise stress test. - [...] Lab in stable condition with NO symptoms. --------- ======= SUMMARY ======= -Non-ischemic ECG stress portion. -Poor functional capacity ``````````````````````````` ``````````````````````````` `````````` TTE CP TTE ECHOCARDIOGRAM 05/21/2024: Impression: 1. Normal left ventricular size. Mild left ventricular hypertrophy. 2. Global systolic function: Overall left ventricular systolic function is normal with an estimated ejection fraction of 55 - 60%. 3. Diastolic function: Mitral inflow pattern and tissue Doppler is consistent with mild diastolic dysfunction (grade Ib) and elevated left atrial filling pressure. 4. The left atrium is mildly enlarged. 5. The right ventricle is mildly enlarged. Borderline right ventricular systolic function. The right atrial size is upper normal. 6. Moderate pulmonary hypertension with an estimated right ventricular/pulmonary artery systolic pressure of 55 mmHg. 7. No hemodynamically significant valvular abnormality. 8. Agitated saline bubble study reveals right to left shunt with Valsalva only (10-20 bubbles/frame). Mobile interatrial septum. 9. As compared to the previous echocardiogram done on 06-07-2022, now see elevated pulmonary pressures. ALEJANDRA 03-24-2021 confirmed PFO. ``````````````````````````` ``````````````````````````` ````` Labs 08/20/2024: Creat 2.38 High H/H 12.2/36.4 Low IMPRESSION/RECOMMENDATIONS 1. Dyspnea, multifactorial possible due to deconditioning, obesity, cardiac problem, anemia of chronic disease, or less likely low DLCO. -- We discuss his respiratory problem and our approach to management. -- Review PFT 03/31/2023. There is a nonspecific reduction in expiratory flow that did not improve after inhaled bronchodilator. There is impairment of diffusing capacity but not oxygenation. There are no prior studies available for comparison. Repeat PFT to r/o low DLCO. -- Review Stress test 06/17/2024. Non-ischemic ECG stress portion. Poor functional capacity -- Ordered V/Q test to r/o PE due to chronic DVT. -- Review ECHO 05/21/2024. New diagnosed pulmonary hypertension. Possible secondary to cardiac disease. Right heart cauterization would be helpful to dx pre and post-capillary pulmonary hypertension. Will discuss with Dr. Winters signals intelligence analysis manager due to renal failure condition. -- 6MW by RT now. No needs for supplemental O2. -- Not a candidate for CARP, completed CARP FATEMEH last year successfully, long distance. -- Encourage daily physical activity as tolerate. 2. MEDARDO, on CPAP. 3. Tobacco use, lifelong non-smoker. -- Congratulated on remaining tobacco free 4. Immunization. UTD + RSV. -- Encouraged annual influenza vaccination 5. Pulmonary hypertension , new dx on ECHO 05/21/2024. Most likely Group 2 due to cardiac shunt, CHF, edema. No significant pulmonary disease on chest images or PFT. -- We discuss dx of pulmonary hypertension. I my opinion it is group 2. We timely discuss results of ECHO, right to left cardiac shunt, fluid overload, hx of venous thrombosis, MEDARDO and CAD. -- I recommend the right heart cath. Patient underwent left card cath in 04/2023. I will discuss this procedure with Dr. Winters signals intelligence analysis manager. -- No needs for supplemental O2. -- Use CPAP with every sleep. -- Encourage maintain healthy weight. -- Encouraged to exercise but patient stated that his tar man recommended against of exercise. Will discuss with cardiology. -- Encourage to monitor volume status. RTC in 4 mo. Plan of care has been discussed with who verbalizes understanding and is in agreement with the plan of care. Vet was advised to call or go to the nearest health facility if any worsening of respiratory symptoms like Chest pain, hemoptysis or SOB. Patient was instructed to keep all scheduled appointments and contact nurse practitioner if any additional problems occur after this appointment. I spent 45 minutes performing services for this patient: before, during and after the F2F visit today more than 50% of the provider's [id number] visit time with a patient is spent in counseling or coordination of care Dr. Winters - please recommend if patient can have the right heart cauterization for a new diagnosed pulmonary hypertension in light of kidney failure. Ideally, I would like to evaluate a new dx of pHTN (for pre and post-capillary hypertension) by RHC. Appreciate your professional opinion. /charly/ ROCKY PARKER PULMONARY ANP Signed: 09/01/2024 18:06 Receipt Acknowledged By: 09/05/2024 11:30 /charly/ Sri Winters MD STAFF PHYSICIAN - NEPHROLOGY 09/15/2024 14:52 /charly/ HELEN MATTHEWS 09/05/2024 ADDENDUM STATUS: COMPLETED If it is essential to make a diagnosis and determine treatment plan, then please go ahead. I would recommend using the lowest possible volume of a low osmolar contrast. Let me know what you plan and pt should be made aware of risks/benefits. Appreciate checking in. Thanks /charly/ Sri Winters MD STAFF PHYSICIAN - NEPHROLOGY Signed: 09/05/2024 11:33 Receipt Acknowledged By: 09/08/2024 16:56 /charly/ ROCKY PARKER PULMONARY ANP 09/10/2024 ADDENDUM STATUS: COMPLETED I was able to make contact with and discuss results of a V/Q scan and a plan of care to get RHC fro further evaluation of pHTN. I discussed recommendation of signals intelligence analysis manager Dr. Winters with . He agreed to RHC and consult pulmonary hypertension clinic in [facility] if appropriate. /ROCKY Adams PULMONARY ANP Signed: 09/10/2024 13:01 09/10/2024 ADDENDUM STATUS: COMPLETED Dr. Winters - appreciate your recommendation. I discuss the plan of care and RHC procedure and risk and benefits with . He would like to have RHC completed. I recommend against of LHC because he was interested in LHC again. I entered your recommendation in the order and comments of RHC. Dr. Matthews- as I informed you before wanted to repeat LHC but I recommend not to do right and left heart catheterization due to s/p kidney transplant. I explained that we need the RHC for further evaluation of a new pulmonary hypertension. I emphasized on using the lowest possible volume during RHC. He verbalized understanding. /ROCKY Adams PULMONARY ANP Signed: 09/10/2024 13:22 Receipt Acknowledged By: 09/10/2024 13:42 /charly/ Sri Winters MD STAFF PHYSICIAN - NEPHROLOGY 09/15/2024 14:50 /kaylyn MATTHEWS 10/14/2024 ADDENDUM STATUS: COMPLETED Noted results of card catherization from 10/04/2024: Procedure Findings: -Mild, post-capillary pulmonary hypertension with mean PA: 31 mmHg and PCWP: 19mmHg -Elevated right and left filling pressures RECOMMENDATIONS Continue medical management Continue outpatient follow up with cardiology /ROCKY Adams PULMONARY ANP Signed: 10/14/2024 11:11 Receipt Acknowledged By: * AWAITING SIGNATURE * [facility]
--- OUTSIDE RECORDS SUMMARY | 2024-09-05 04:00 | XMS_ITS | Encounter Summary ---
Author Name [facility] [facility] [place] [facility] [place] [facility] [place] Address [address] [place] [address] Care Team Providers Care Equipment Operat0R Name Role Phone HELEN MATTHEWS Primary Care [...] PART A Feb 09, 2019 PART A [id number] ANA GANNON EPH PATIENT MEDICARE (WNR) MEDICARE (M) PART B Feb 09, 2019 PART B [id number] ANA GANNON EPH PATIENT MEDICARE (WNR) MEDICARE (M) PART A Feb 09, 2019 PART A [id number] ANA GANNON EPH PATIENT MEDICARE (WNR) MEDICARE (M) PART B Feb 09, 2019 PART B [id number] ANA GANNON PATIENT MEDICARE (WNR) MEDICARE (M) PART B Feb 09, 2019 PART B [id number] ANA GANNON PATIENT MEDICARE (WNR) MEDICARE (M) PART A Feb 09, 2019 PART A [id number] ANA GANNON PATIENT MEDICARE PART D (WNR) MEDICARE (M) PART D Sep 11, 2019 PART D [id number] ANA GANNON PATIENT Selected Encounter This section includes the information on record at [place] for the Encounter. 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 This section includes future appointments and future orders which are active, pending or scheduled. Future Appointments This section includes appointments that were scheduled to occur 6 months from the date of the Encounter, up to a maximum of 20 appointments. The data comes from all [place] treatment facilities. Appointment Date/Time Appointment Type Appointme nt Facility Name Sep 10, 2024 11:00 AM AMBULATORY - NONE [facility] Sep 18, 2024 02:00 PM AMBULATORY - MEDICINE [facility] Sep 19, 2024 09:00 AM AMBULATORY - SURGERY [facility] Sep 25, 2024 09:45 AM AMBULATORY - MEDICINE [facility] Oct 03, 2024 09:15 AM AMBULATORY - MEDICINE [facility] Oct 03, 2024 09:30 AM AMBULATORY - MEDICINE [facility] Oct 04, 2024 06:45 AM AMBULATORY - NONE [facility] Oct 04, 2024 07:00 AM AMBULATORY - MEDICINE [facility] Oct 08, 2024 02:20 PM AMBULATORY - MEDICINE [facility] Nov 18, 2024 10:00 AM AMBULATORY - REHAB MEDICIN [facility] Nov 22, 2024 10:00 AM AMBULATORY - MEDICINE [facility] Nov 26, 2024 02:00 PM AMBULATORY - MEDICINE [facility] Dec 12, 2024 09:00 AM AMBULATORY - MEDICINE [facility] Dec 26, 2024 12:45 PM AMBULATORY - MEDICINE [facility] Dec 26, 2024 01:00 PM AMBULATORY - MEDICINE [facility] Dec 27, 2024 09:56 AM AMBULATORY - MEDICINE [facility] Dec 31, 2024 10:00 AM AMBULATORY - MEDICINE [facility] January 30, 2025 10:00 AM AMBULATORY - MEDICINE [facility] February 06, 2025 10:00 AM AMBULATORY - MEDICINE [facility] Mar 06, 2025 10:00 AM AMBULATORY - MEDICINE [facility] Active, Pending, and Scheduled Orders This section includes a listing of several types of active, pending, and scheduled orders, including clinic medications orders, diagnostic test orders, procedure orders and consult orders; where the start date of the order is 45 days before the date of the Encounter or 45 days after the date of theEncounter. The data comes from all [place] treatment facilities. Test Date/Time Test Type Test Details Facility Name Oct 04, 2024 06:00 AM Laboratory - Blood Bank Order TYPE & SCREEN - LAB BLOOD WC [facility] Lab Results: +/- 30 days of the [...] Unit Interpretation Reference Range Specimen Type Comment Oct 04, 2024 08:[address] [facility] GLUCOSE,BLOOD-poct (STL) BLOOD Specimen Type: BLOOD Comment: Test Performed by: [id number] Meter #: [id number] Ordering Provider: GONZALO WALTER Report Released Date/Time: Oct 04, 2024 05:32 PM Reporting Lab: [address] [address] Performing Lab: [address] [address] GLUCOSE,BLOOD-poct (STL) 127 mg/dL H 72-99 Oct 04, 2024 08:[address] [facility] GLUCOSE,BLOOD-poct (STL) BLOOD Specimen Type: BLOOD Comment: Test Performed by: [id number] Meter #: [id number] Ordering Provider: HELEN MATTHEWS Report Released Date/Time: Oct 04, 2024 08:14 AM Reporting Lab: [address] [address] Performing Lab: [address] [address] GLUCOSE,BLOOD-poct (STL) 107 mg/dL H 72-99 Oct 04, 2024 08:[address] [facility] POC AVOX PANEL BLOOD Specimen Type: BLOOD Comment: Test Performed by: [id number] Meter #: [id number] Ordering Provider: HELEN MATTHEWS Report Released Date/Time: Oct 04, 2024 08:15 AM Reporting Lab: [address] [address] Performing Lab: [address] [address] POC AVOX O2HB 72.9 L 92-100 POC AVOX THB 12.7 g/dL L 13.1-16.8 Oct 04, 2024 08:[address] [facility] POC AVOX PANEL BLOOD Specimen Type: BLOOD Comment: Test Performed by: [id number] Meter #: [id number] Ordering Provider: HELEN AMTTHEWS Report Released Date/Time: Oct 04, 2024 08:14 AM Reporting Lab: [address] [address] Performing Lab: [address] [address] POC AVOX O2HB 73.1 L 92-100 POC AVOX THB 12.8 g/dL L 13.1-16.8 Oct 04, 2024 08:[address] [facility] POC AVOX PANEL BLOOD Specimen Type: BLOOD Comment: Test Performed by: [id number] Meter #: [id number] Ordering Provider: HELEN MATTHEWS Report Released Date/Time: Oct 04, 2024 08:13 AM Reporting Lab: [address] [address] Performing Lab: [address] [address] POC AVOX O2HB 75.3 L 92-100 POC AVOX THB 12.7 g/dL L 13.1-16.8 Oct 04, 2024 08:[address] [facility] POC AVOX PANEL BLOOD Specimen Type: BLOOD Comment: Test Performed by: [id number] Meter #: [id number] Ordering Provider: HELEN MATTHEWS Report Released Date/Time: Oct 04, 2024 08:13 AM Reporting Lab: [address] [address] Performing Lab: [address] [address] POC AVOX O2HB 73.4 L 92-100 POC AVOX THB 13.0 g/dL L 13.1-16.8 Oct 04, 2024 07:[address] [facility] GLUCOSE,BLOOD-poct (STL) BLOOD Specimen Type: BLOOD Comment: Test Performed by: [id number] Meter #: [id number] Ordering Provider: GONZALO WALTER Report Released Date/Time: Oct 04, 2024 05:32 PM Reporting Lab: [address] [address] Performing Lab: [address] [address] GLUCOSE,BLOOD-poct (STL) 69 mg/dL L 72-99 Oct 04, 2024 07:[address] [facility] PT/INR NEW (STL-MA) PLASMA Specimen Type: PLAS MA No comment entered. Ordering Provider: MENA AGGARWAL Report Released Date/Time: Sep 16, 2024 09:39 AM Reporting Lab: [address] [address] Performing Lab: [address] [address] PROTIME 12.1 s 9.4-12.5 INR VALUE 1.1 {INR} Oct 04, 2024 07:[address] [facility] BASIC METABOLIC PANEL PLASMA Specimen Type: PL ASMA Comment: No hemolysis noted. Ordering Provider: MENA AGGARWAL Report Released Date/Time: Sep 16, 2024 09:39 AM Reporting Lab: [address] [address] Performing Lab: [address] [address] CREATININE 1.62 mg/dL H 0.7-1.3 UREA NITROGEN 31.2 mg/dL H 9.0-25.0 GLUCOSE 71 mg/dL L 72-99 SODIUM 138 meq/L 136-145 POTASSIUM 4.8 meq/L 3.5-5 CHLORIDE 108 meq/L H 98-107 CARBON DIOXIDE 21 meq/L L 22-31 CALCIUM 9.5 mg/dL 8.4-10.4 EGFR (CKD-EPI 2020) 45.4 >60 Oct 04, 2024 07:[address] [facility] CBC BLOOD Specimen Type: BLOOD No comment entered. Ordering Provider: MENA AGGARWAL Report Released Date/Time: Sep 16, 2024 09:39 AM Reporting Lab: [address] [place] [address] Performing Lab: [address] [address] WBC 6.7 10*3/uL 3.6-11.2 RBC 4.25 10*6/uL 4.10-5.70 HGB 13.0 g/dL L 13.1-16.8 HCT 39.0 38.2-48.4 MCV 91.8 fL 80.0-100.0 MCH 30.6 pg 27.0-34.0 MCHC 33.3 g/dL 33.0-36.0 PLT 159 10*3/uL 150-400 MPV 10.0 fL 7.5-11.2 RDW 12.9 11.8-15.1 LYMPHOCYTES, AUTO % 16 MONOCYTES, AUTO % 10 NEUTROPHILS, AUTO % 69 EOSINOPHILS, AUTO % 4 BASOPHILS, AUTO % 1 LYMPHOCYTES, ABSOLUTE 1.05 10*3/uL 0.77- 4.50 MONOCYTES, ABSOLUTE 0.64 10*3/uL 0.19-0. 80 NEUTROPHILS, ABSOLUTE 4.60 10*3/uL 2.10- 8.00 EOSINOPHILS, ABSOLUTE 0.29 10*3/uL 0.00- 0.60 BASOPHILS, ABSOLUTE 0.05 10*3/uL 0.00-0. 20 Sep 19, 2024 09:[address] [facility] RENAL PANEL PLASMA Specimen Type: PLASM A Comment: No hemolysis noted. Ordering Provider: FRANCISCO DALIY Report Released Date/Time: Sep 01, 2023 11:30 AM Reporting Lab: [address] [address] Performing Lab: [address] [address] CREATININE 1.60 mg/dL H 0.7-1.3 UREA NITROGEN 34.6 mg/dL H 9.0-25.0 GLUCOSE 141 mg/dL H 72-99 SODIUM 138 meq/L 136-145 POTASSIUM 4.9 meq/L 3.5-5 CHLORIDE 110 meq/L H 98-107 CARBON DIOXIDE 20 meq/L L 22-31 CALCIUM 9.6 mg/dL 8.4-10.4 PHOSPHOROUS 3.0 mg/dL 2.3-4.7 ALBUMIN 3.9 g/dL 3.4-5 EGFR (CKD-EPI 2020) 46.1 >60 Sep 19, 2024 09:[address] [facility] URINALYSIS (L-PB) URINE Specimen Type: URIN E No comment entered. Ordering Provider: FRANCISCO DAILY Report Released Date/Time: Sep 01, 2023 11:30 AM Reporting Lab: [address] [address] Performing Lab: [address] [address] URINE COLOR Light-Yellow Yellow U.BILIRUBIN Negative mg/dL Negative U.PH 6.0 5.0-8.0 URINE WBC/HPF 1 /[HPF] 0-5 URINE RBC/HPF 1 /[HPF] 0-5 APPEARANCE Clear Clear U.NITRITE Negative mg/dL Negative URN.GLUCOSE 50 mg/dL H Negative URN.PROTEIN Negative mg/dL URN.UROBILINOGEN Normal mg/dL Normal URN.BLOOD Negative mg/dL Negative-Trace URN.KETONES Negative mg/dL Negative-Trac e URN.LEUK.EST. Negative mg/dL Negative-Tr malu URN.SPECIFIC GRAVITY 1.013 Sep 19, 2024 09:34 AM [facility] HGA1C BLOOD Specimen Type: BLOOD No comment entered. Ordering Provider: FRANCISCO DAILY Report Released Date/Time: Oct 10, 2023 12:32 PM Reporting Lab: [address] [address] Performing Lab: [address] [address] HGA1C 7.4 H 4.0-6.0 Sep 19, 2024 09:[address] [facility] TACROLIMUS (L-PB) BLOOD Specimen Type: BLOO D No comment entered. Ordering Provider: FRANCISOC DAILY Report Released Date/Time: Oct 10, 2023 12:32 PM Reporting Lab: [address] [address] Performing Lab: [facility] [address] [address] TACROLIMUS (STL-PB) 4.4 ng/mL Sep 19, 2024 09:34 AM [facility] CBC BLOOD Specimen Type: BLOOD No comment entered. Ordering Provider: FRANCISCO DAILY Report Released Date/Time: Oct 10, 2023 12:32 PM Reporting Lab: [address] [address] Performing Lab: [address] [address] WBC 6.6 10*3/uL 3.6-11.2 RBC 4.18 10*6/uL [...] 0.00-0. 20 Sep 19, 2024 09:34 AM [facility] PROST. SPECIFIC AG.(PB-STL) SERUM Specimen Ty pe: SERUM Comment: The listed sex of this patient may not be a typical indication for this test. Therefore, reference ranges or interpretive criteria listed may not be valid. Clinical correlation suggested. Ordering Provider: HELEN MATTHEWS Report Released Date/Time: Sep 18, 2024 02:44 PM Reporting Lab: [place] [address] [facility] [address] Performing Lab: [facility] [address] [address] PROST. SPECIFIC AG.(PB-STL) 0.418 ng/mL 0-4 Sep 19, 2024 09:34 AM Carrie [facility] LIPID PANEL (STL) PLASMA Specimen Type: PLASM A No comment entered. Ordering Provider: HELEN MATTHEWS Report Released Date/Time: Sep 18, 2024 02:51 PM Reporting Lab: [facility] [address] [address] Performing Lab: [address] [address] CHOLESTEROL 92 mg/dL 0-200 TRIGLYCERIDE 68 mg/dL 0-150 CALCULATED LDL 35 mg/dL HDL(New) 43 mg/dL >40 Aug 20, 2024 08:[address] [facility] HEPATIC FUNTION PANEL (STL) PLASMA Specimen Ty pe: PLASMA No comment entered. Ordering Provider: BYRON CARDONA Report Released Date/Time: Aug 21, 2024 10:18 AM Reporting Lab: [address] [address] Performing Lab: [place] [address] [address] [place] [address] PROTEIN 6.0 g/dL 6-8.6 ALBUMIN 3.5 g/dL 3.4-5 TOTAL BILIRUBIN 0.5 mg/dL 0.2-1.2 ALKALINE PHOSPHATASE 79 U/L 40-150 AST/SGOT 20 U/L 5-34 ALT/SGPT 20 U/L 8-40 CONJ. BILIRUBIN 0.2 mg/dL 0-0.5 Aug 20, 2024 08:[address] [facility] TACROLIMUS (STL-PB) BLOOD Specimen Type: BLOO D No comment entered. Ordering Provider: FRANCISCO DAILY Report Released Date/Time: Sep 01, 2023 11:30 AM Reporting Lab: [address] [address] Performing Lab: [address] [place] [address] TACROLIMUS (STL-PB) 5.6 ng/mL Aug 20, 2024 08:[address] [facility] RENAL PANEL PLASMA Specimen Type: PLASM A Comment: No hemolysis noted. Ordering Provider: FRANCISCO DAILY Report Released Date/Time: Sep 01, 2023 11:30 AM Reporting Lab: [address] [address] Performing Lab: [address] [address] CREATININE 2.38 mg/dL H 0.7-1.3 UREA NITROGEN 45.7 mg/dL H 9.0-25.0 GLUCOSE 145 mg/dL H 72-99 SODIUM 138 meq/L 136-145 POTASSIUM 5.2 meq/L H 3.5-5 CHLORIDE 109 meq/L H 98-107 CARBON DIOXIDE 20 meq/L L 22-31 CALCIUM 9.2 mg/dL 8.4-10.4 PHOSPHOROUS 4.1 mg/dL 2.3-4.7 ALBUMIN 3.5 g/dL 3.4-5 EGFR (CKD-EPI 2020) 28.6 >60 Aug 20, 2024 08:21 AM [facility] CBC BLOOD Specimen Type: BLOOD No comment entered. Ordering Provider: FRANCISCO DAILY Report Released Date/Time: Sep 01, 2023 11:30 AM Reporting Lab: [address] [address] Performing Lab: [address] [address] WBC 6.0 10*3/uL 3.6-11.2 RBC 3.92 10*6/uL [...] 0.60 BASOPHILS, ABSOLUTE 0.09 10*3/uL 0.00-0. 20 Aug 20, 2024 08:21 AM [facility] URINALYSIS (STL-PB) URINE Specimen Type: URIN E No comment entered. Ordering Provider: FRANCISCO DAILY Report Released Date/Time: Sep 01, 2023 11:30 AM Reporting Lab: [place] [address] [address] [place] [address] Performing Lab: [address] [address] URINE COLOR Light-Yellow Yellow U.BILIRUBIN Negative mg/dL Negative U.PH 5.5 5.0-8.0 URINE WBC/HPF 1 /[HPF] 0-5 URINE RBC/HPF 1 /[HPF] 0-5 APPEARANCE Clear Clear U.NITRITE Negative mg/dL Negative HYALINE CASTS 1 /[LPF] 0-5 URN.GLUCOSE 30 mg/dL H Negative URN.PROTEIN 20 mg/dL H URN.UROBILINOGEN Normal mg/dL Normal URN.BLOOD Negative mg/dL Negative-Trace URN.KETONES Negative mg/dL Negative-Trac e URN.LEUK.EST. Negative mg/dL Negative-Tr malu URN.SPECIFIC GRAVITY 1.019 Social History: Smoking Status (Most current) and Tobacco Use (All prior to encounter date) This section includes the most current, and the historical, smoking and tobacco- related health factors from the [place] facility where the Encounter took place. Current Smoking Status This section includes the most current smoking, or tobacco-related health factor, from the [place] facility where the Encounter took place. Date/Time Current Smoking Status Comment Facil ity Nov 22, 2021 10:00 AM [place]-TO[place]AC[place] NEVER USED [facility] Tobacco Use History This section includes a history of the smoking, or tobacco-related health factors, that were collected on or before the date of the Encounter. The data comes from the [place] facility where the Encounter took place. Date/Time Smoking Status/Tobacco Use Comment F acility Sep 26, 2018 08:30 AM [place]-TOBAC[place] [facility] Jun 25, 2018 10:53 AM [place]-TOBACCO NEVER USED [facility] Dec 22, 2017 10:58 AM [place]-TOBACCO NEVER USED [facility] Jun 28, 2017 11:04 AM LIFETIME NON-USER OF TOBACCO [facility] Jun 21, 2017 09:54 AM LIFETIME NON-USER OF TOBAC [place] non user . [facility] May 10, 2017 09:43 AM LIFETIME NON-USER OF TOBAC CO never . [facility] Feb 17, 2017 08:27 AM LIFETIME NON-USER OF TOBACCO . [facility] January 14, 2016 02:12 PM LIFETIME NON-USER OF TOBACCO [facility] Radiology Reports: +/- 30 days of the [...] the Encounter. The data comes from all [place] treatment facilities. Date/Time Radiology Report Provider Source Sep 10, 2024 08:50 AM CHEST X-RAY, 2 VIE WS: DAT GANNON [id number] -1955 M Exm Date: SEP 10, 2024@08:50 Req Phys: THI GAN Loc: [facility]PULMON[facility]KO (Req'g Img Loc: [facility]MAIN RADIOLOGY SUITE Service: [facility], [facility] [address] [place] [address] (Case [id number] COMPLETE) CHEST X-RAY, 2 VIEWS (RAD Detailed) CPT:88053 Reason for Study: V/Q scan Clinical History: with V/Q scan fro comparison Report Status: Verified Date Reported: SEP 10, 2024 Date Verified: SEP 10, 2024 Preventive Maintenance Coordinator E-Sig:/ES/CHIARA ALFORD Report: EXAMINATION: CHEST X-RAY, 2 VIEWS [...] Primary Interpreting Staff: CHIARA ALFORD, Staff Physician (Preventive Maintenance Coordinator) /CHIARA SOARES [facility] Sep 10, 2024 08:49 AM [place] LUNG V/Q -P: DAT GANNON [id number] -1955 M Exm Date: SEP 10, 2024@08:49 Req Phys: THI GAN Pat Loc: [facility] (Req'g Img Loc: [facility]NUCLEAR MEDICINE Service: Unknown [address] [address] (Case [id number] COMPLETE) PULMONARY VENTILATION AND PERFUSI(NM Detailed) CPT:58180 Reason for Study: oulmonary emboli (Case [id number] [...] 10, 2024 Date Verified: SEP 10, 2024 Preventive Maintenance Coordinator E-Sig:/ES/Aleah Gaming MD,PhD Report: CASE #: [id number], [id number], [id number], [id number]. Examination: Ventilation/perfusion lung scan REFERRING PHYSICIAN: Dr. [...] obtained . COMPARISON: There is no prior [place] lung scan available for review. Chest x-ray [...] MD,PhD, Nuclear Medicine Physician (Carlos) /ALEAH GILBERT [facility] Encounter Notes: All associated encounter notes This section contains the clinical notes associated to the Encounter. Date/Time Encounter Note(s) Provider Source Sep 05, 2024 09:18 AM PSYCHOLOGY OUTPATI ENT NOTE: LOCAL TITLE: PRIMARY CARE PSYCHOLOGY NOTE STL STANDARD TITLE: PSYCHOLOGY OUTPATIENT NOTE DATE OF NOTE: SEP 05, 2024@09:18 ENTRY DATE: SEP 05, 2024@09:18:28 AUTHOR: ANGELI BECERRIL EXP COSIGNER: URGENCY: STATUS: COMPLETED PRIMARY CARE PSYCHOLOGY NOTE STL Has ADDENDA NAME: DAT GANNON DATE OF : Feb TIME SPENT WITH PATIENT: 30 minutes DIAGNOSIS BEING TREATED: Depressive D/O d/t Another Medical Condition, Relationship Distress with Spouse CPT Code: 85617 NATURE OF ENCOUNTER: follow up visit SESSION FORMAT: [X] [id number] [ ] Video Telehealth [ ]Phone Confirmed 's location and phone number for virtual appointment. 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 Reports ongoing elevations in stress/anxiety r/t medical conditions, noting that the lack of a clear plan for addressing identified conditions as frustrating and stressful. Some improvement in sleep quality reported s/t use of CPAP. Notes that this has assisted with some improvement in energy level, but also reports significant lifestyle changes in response to, and in effort to mangage, anergia. - Discussed recent medical appts and feedback received regarding medical conditions. Assisted with processing related thoughts and feelings. Provided with empathetic and supportive listening and appropriate validation. Assisted with challenging identified distorted cognitions. - Continued discussing discord within marital relationship. Continued assisting with processing related thoughts and feelings (particularly those r/t holiday celebration experiences) and assisting with challenging identified distorted cognitions. Continued providing with empathetic and supportive listening and appropriate validation. Reviewed communication strategies and encouraged ongoing use. - Reviewed stress/anxiety management strategies. - Reviewed mood management strategies. Reviewed importance of self-care and discussed strategies to assist with engagement. ASSESSMENT MEASURES USED: [X] Self-Report Questionnaires: See Mental Health Diagnostic Study dated today, Sep 03, for details regarding endorsements for specific sxs. PHQ-9 = 8 (Q#9=0); indicative of depressive sxs being reported in the Mild range. Score = 10 (Q#9=0; Moderate range) when administered on May 04. BARRIE-7 = 9; indicative of anxiety sxs being reported in the Mild range. Score = 4 (Mild range) when administered on May 04. ROS: Sleep: Ongoing Initial and Middle Insomnia, but some improvement in sleep quality reported Interest: continues to experience intermittent anhedonia Guilt: Continues to endorse occasional experience Energy: continues to endorse frequent anergia (attributes to pulmonary and cardiac issues) Concentration: remains decreased at times Appetite: Remains WNL Psychomotor: WNL upon observation, continues to report feeling sluggish, also notes feeling restless at times s/t increased stress Collaboratively discussed outcomes related to assessment and treatment progress and measures will continue to be monitored. MEASURABLE TREATMENT GOALS FOR THIS EPISODE OF CARE: Goals were developed with [place] using shared decision making 1. GOAL/OBJECTIVES: improve mood state PROGRESS TOWARDS GOAL: mood sxs remain elevated, but appear stable 2. GOAL/OBJECTIVES: increase physical fx'ing PROGRESS TOWARDS GOAL: continues to experience significant anergia, completed appt with pulmonology and is scheduled for additional testing RESPONSE TO INTERVENTIONS: Veterans participation/engagement: [X]The participated actively in the current interventions. [ ]Other: The [place] continues to consent to the current plan of care: Yes Comments: RISK ASSESSMENT: [X] NO CHANGES IN RISK FACTORS Related to Suicide or Homicide endorsed during today's encounter. [place] did not report any current suicidal/homicidal ideation, [...] at the current level of care. -Comments: [place] was asked directly and denied SI/HI, to [...] [X] No changes to plan of care. [place] expressed agreement with therapy tasks and gvvoue-td-udldra plan. RTC placed for f/u appt. /charly/ ANGELI BECERRIL, PH.D. Clinical Psychologist; [facility] Signed: 09/05/2024 09:52 09/05/2024 ADDENDUM STATUS: COMPLETED Depression Screening - V: Perform PHQ-2 A PHQ-2 screen was performed. The score was 2 which is a negative screen for depression. Over the past two weeks, how often have you been bothered by the following problems? 1. Little interest or pleasure in doing things Several days 2. Feeling down, depressed, or hopeless Several days /kaylyn BECERRIL, PH.D. Clinical Psychologist; [facility] Signed: 09/05/2024 10:13 ANGELI BECERRIL [facility]
--- OUTSIDE RECORDS SUMMARY | 2024-09-18 09:00 | XMS_ITS | Encounter Summary ---
Author Name [facility] Organization [facility] Address [address] [place] [address] Care Team Providers Care Protocol Manager Name Role Phone HELEN MATTHEWS Primary [...] PART A Feb 09, 2019 PART A [id number] ANA GANNON EPH PATIENT MEDICARE (WNR) MEDICARE (M) PART B Feb 09, 2019 PART B [id number] ANA GANNON EPH PATIENT MEDICARE (WNR) MEDICARE (M) PART A Feb 09, 2019 PART A [id number] ANA GANNON EPH PATIENT MEDICARE (WNR) MEDICARE (M) PART B Feb 09, 2019 PART B [id number] ANA GANNON PATIENT MEDICARE (WNR) MEDICARE (M) PART B Feb 09, 2019 PART B [id number] ANA GANNON PATIENT MEDICARE (WNR) MEDICARE (M) PART A Feb 09, 2019 PART A [id number] [phone] ANA GANNON PATIENT MEDICARE PART D (WNR) MEDICARE (M) PART D Sep 11, 2019 PART D [id number] ANA GANNON PATIENT Selected Encounter This section includes the information on record at [place] for the Encounter. Date/Time Encounter Type Encounter Description Reason Provider Source Sep 18, 2024 02:00 PM OFFICE O/P EST MOD 30 MIN PRIMARY CARE/MEDICINE ICD-10-CM 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 HELEN MATTHEWS IHE Encounter Template Text not used by ME Assessments - Encounter Diagnoses This section includes the primary and secondary diagnoses documented for the Encounter. 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 This section includes future appointments and future orders which are active, pending or scheduled. Future Appointments This section includes appointments that were scheduled to occur 6 months from the date of the Encounter, up to a maximum of 20 appointments. The data comes from all [place] treatment facilities. Appointment Date/Time Appointment Type Appointme nt Facility Name Sep 19, 2024 09:00 AM AMBULATORY - SURGERY [facility] Sep 25, 2024 09:45 AM AMBULATORY - MEDICINE [facility] Oct 03, 2024 09:15 AM AMBULATORY - MEDICINE [facility] Oct 03, 2024 09:30 AM AMBULATORY - MEDICINE [facility] Oct 04, 2024 06:45 AM [facility] Oct 04, 2024 07:00 AM AMBULATORY - MEDICINE [facility] Oct 08, 2024 02:20 PM AMBULATORY - MEDICINE [facility] Nov 18, 2024 10:00 AM AMBULATORY - REHAB MEDICIN E [facility] Nov 22, 2024 10:00 AM AMBULATORY - MEDICINE [facility] Nov 26, 2024 02:00 PM AMBULATORY - MEDICINE [facility] Dec 12, 2024 09:00 AM AMBULATORY - MEDICINE [facility] Dec 26, 2024 12:45 PM AMBULATORY - MEDICINE [facility] Dec 26, 2024 01:00 PM AMBULATORY - MEDICINE [facility] Dec 27, 2024 09:56 AM AMBULATORY - MEDICINE [facility] Dec 31, 2024 10:00 AM AMBULATORY - MEDICINE [facility] January 30, 2025 10:00 AM AMBULATORY - MEDICINE [facility] February 06, 2025 10:00 AM AMBULATORY - MEDICINE [facility] Mar 06, 2025 10:00 AM AMBULATORY - MEDICINE [facility] Mar 18, 2025 11:00 AM AMBULATORY - MEDICINE [facility] Active, Pending, and Scheduled Orders This section includes a listing of several types of active, pending, and scheduled orders, including clinic medications orders, diagnostic test orders, procedure orders and consult orders; where the start date of the order is 45 days before the date of the Encounter or 45 days after the date of theEncounter. The data comes from all [place] treatment facilities. Test Date/Time Test Type Test Details Facility Name Oct 04, 2024 06:00 AM Laboratory - Blood Bank Order TYPE & SCREEN - LAB BLOOD WC [facility] Lab Results: +/- 30 days of the [...] Type Comment Oct 04, 2024 08:50 AM [facility] GLUCOSE,BLOOD-poct (STL) BLOOD Specimen Type: BLOOD Comment: Test Performed by: [id number] Meter #: [id number] Ordering Provider: GONZALO WALTER Report Released Date/Time: Oct 04, 2024 05:32 PM Reporting Lab: [address] [address] Performing Lab: [address] [address] GLUCOSE,BLOOD-poct (STL) 127 mg/dL H 72-99 Oct 04, 2024 08:11 AM [facility] GLUCOSE,BLOOD-poct (STL) BLOOD Specimen Type: BLOOD Comment: Test Performed by: [id number] Meter #: [id number] Ordering Provider: HELEN MATTHEWS Report Released Date/Time: Oct 04, 2024 08:14 AM Reporting Lab: [address] [address] Performing Lab: [address] [address] GLUCOSE,BLOOD-poct (STL) 107 mg/dL H 72-99 Oct 04, 2024 08:06 AM [facility] POC AVOX PANEL BLOOD Specimen Type: BLOOD Comment: Test Performed by: [id number] Meter #: [id number] Ordering Provider: HELEN MATTHEWS Report Released Date/Time: Oct 04, 2024 08:15 AM Reporting Lab: [address] [address] Performing Lab: [address] [address] POC AVOX O2HB 72.9 L 92-100 POC AVOX THB 12.7 g/dL L 13.1-16.8 Oct 04, 2024 08:05 AM [facility] POC AVOX PANEL BLOOD Specimen Type: BLOOD Comment: Test Performed by: [id number] Meter #: [id number] Ordering Provider: HELEN MATTHEWS Report Released Date/Time: Oct 04, 2024 08:14 AM Reporting Lab: [address] [address] Performing Lab: [address] [address] POC AVOX O2HB 73.1 L 92-100 POC AVOX THB 12.8 g/dL L 13.1-16.8 Oct 04, 2024 08:04 AM [facility] POC AVOX PANEL BLOOD Specimen Type: BLOOD Comment: Test Performed by: [id number] Meter #: [id number] Ordering Provider: HELEN MATTHEWS Report Released Date/Time: Oct 04, 2024 08:13 AM Reporting Lab: [address] [address] Performing Lab: [address] [address] POC AVOX O2HB 75.3 L 92-100 POC AVOX THB 12.7 g/dL L 13.1-16.8 Oct 04, 2024 08:03 AM [facility] POC AVOX PANEL BLOOD Specimen Type: BLOOD Comment: Test Performed by: [id number] Meter #: [id number] Ordering Provider: HELEN MATTHEWS Report Released Date/Time: Oct 04, 2024 08:13 AM Reporting Lab: [address] [address] Performing Lab: [address] [address] POC AVOX O2HB 73.4 L 92-100 POC AVOX THB 13.0 g/dL L 13.1-16.8 Oct 04, 2024 07:18 AM [facility] GLUCOSE,BLOOD-poct (STL) BLOOD Specimen Type: BLOOD Comment: Test Performed by: [id number] Meter #: [id number] Ordering Provider: GONZALO WALTER Report Released Date/Time: Oct 04, 2024 05:32 PM Reporting Lab: [address] [address] Performing Lab: [address] [address] GLUCOSE,BLOOD-poct (STL) 69 mg/dL L 72-99 Oct 04, 2024 07:17 AM [facility] PT/INR NEW (L-MA) PLASMA Specimen Type: PLAS MA No comment entered. Ordering Provider: MENA AGGARWAL Report Released Date/Time: Sep 16, 2024 09:39 AM Reporting Lab: [address] [address] Performing Lab: [address] [address] PROTIME 12.1 s 9.4-12.5 INR VALUE 1.1 {INR} Oct 04, 2024 07:17 AM [facility] BASIC METABOLIC PANEL PLASMA Specimen Type: PL ASMA Comment: No hemolysis noted. Ordering Provider: MENA AGGARWAL Report Released Date/Time: Sep 16, 2024 09:39 AM Reporting Lab: [address] [address] Performing Lab: [address] [address] CREATININE 1.62 mg/dL H 0.7-1.3 UREA NITROGEN 31.2 mg/dL H 9.0-25.0 GLUCOSE 71 mg/dL L 72-99 SODIUM 138 meq/L 136-145 POTASSIUM 4.8 meq/L 3.5-5 CHLORIDE 108 meq/L H 98-107 CARBON DIOXIDE 21 meq/L L 22-31 CALCIUM 9.5 mg/dL 8.4-10.4 EGFR (CKD-EPI 2020) 45.4 >60 Oct 04, 2024 07:17 AM [facility] CBC BLOOD Specimen Type: BLOOD No comment entered. Ordering Provider: MENA AGGARWAL Report Released Date/Time: Sep 16, 2024 09:39 AM Reporting Lab: [facility] [address] [facility] [address] Performing Lab: [address] [address] WBC 6.7 10*3/uL 3.6-11.2 RBC 4.25 10*6/uL [...] 0.00-0. 20 Sep 19, 2024 09:40 AM [facility] RENAL PANEL PLASMA Specimen Type: PLASM A Comment: No hemolysis noted. Ordering Provider: FRANCISCO DAILY Report Released Date/Time: Sep 01, 2023 11:30 AM Reporting Lab: [address] [address] Performing Lab: [address] [address] CREATININE 1.60 mg/dL H 0.7-1.3 UREA NITROGEN 34.6 mg/dL H 9.0-25.0 GLUCOSE 141 mg/dL H 72-99 SODIUM 138 meq/L 136-145 POTASSIUM 4.9 meq/L 3.5-5 CHLORIDE 110 meq/L H 98-107 CARBON DIOXIDE 20 meq/L L 22-31 CALCIUM 9.6 mg/dL 8.4-10.4 PHOSPHOROUS 3.0 mg/dL 2.3-4.7 ALBUMIN 3.9 g/dL 3.4-5 EGFR (CKD-EPI 2020) 46.1 >60 Sep 19, 2024 09:[address] [facility] URINALYSIS (STL-PB) URINE Specimen Type: URIN E No comment entered. Ordering Provider: FRANCISCO DAILY Report Released Date/Time: Sep 01, 2023 11:30 AM Reporting Lab: [address] [address] Performing Lab: [address] [address] URINE COLOR Light-Yellow Yellow U.BILIRUBIN Negative mg/dL Negative U.PH 6.0 5.0-8.0 URINE WBC/HPF 1 /[HPF] 0-5 URINE RBC/HPF 1 /[HPF] 0-5 APPEARANCE Clear Clear U.NITRITE Negative mg/dL Negative URN.GLUCOSE 50 mg/dL H Negative URN.PROTEIN Negative mg/dL URN.UROBILINOGEN Normal mg/dL Normal URN.BLOOD Negative mg/dL Negative-Trace URN.KETONES Negative mg/dL Negative-Trac e URN.LEUK.EST. Negative mg/dL Negative-Tr malu URN.SPECIFIC GRAVITY 1.013 Sep 19, 2024 09:34 AM [facility] HGA1C BLOOD Specimen Type: BLOOD No comment entered. Ordering Provider: FRANCISCO DAILY Report Released Date/Time: Oct 10, 2023 12:32 PM Reporting Lab: [address] [address] Performing Lab: [address] [address] HGA1C 7.4 H 4.0-6.0 Sep 19, 2024 09:34 AM [facility] TACROLIMUS (STL-PB) BLOOD Specimen Type: BLOO D No comment entered. Ordering Provider: FRANCISCO DAILY Report Released Date/Time: Oct 10, 2023 12:32 PM Reporting Lab: [facility] [address] [address] Performing Lab: [place] [address] [facility] [address] TACROLIMUS (STL-PB) 4.4 ng/mL Sep 19, 2024 09:34 AM [facility] CBC BLOOD Specimen Type: BLOOD No comment entered. Ordering Provider: FRANCISCO DAILY Report Released Date/Time: Oct 10, 2023 12:32 PM Reporting Lab: [address] [address] Performing Lab: [address] [address] WBC 6.6 10*3/uL 3.6-11.2 RBC 4.18 10*6/uL [...] 0.00-0. 20 Sep 19, 2024 09:34 AM [facility] PROST. SPECIFIC AG.(PB-STL) SERUM Specimen Ty pe: SERUM Comment: The listed sex of this patient may not be a typical indication for this test. Therefore, reference ranges or interpretive criteria listed may not be valid. Clinical correlation suggested. Ordering Provider: HELEN MATTHEWS Report Released Date/Time: Sep 18, 2024 02:44 PM Reporting Lab: [address] [address] Performing Lab: [place] [address] [facility] [address] PROST. SPECIFIC AG.(PB-STL) 0.418 ng/mL 0-4 Sep 19, 2024 09:34 AM [facility] LIPID PANEL (STL) PLASMA Specimen Type: PLASM A No comment entered. Ordering Provider: HELEN MATTHEWS Report Released Date/Time: Sep 18, 2024 02:51 PM Reporting Lab: [address] [address] Performing Lab: [address] [address] CHOLESTEROL 92 mg/dL 0-200 TRIGLYCERIDE 68 mg/dL 0-150 CALCULATED LDL 35 mg/dL HDL(New) 43 mg/dL >40 Aug 20, 2024 08:21 AM [facility] HEPATIC FUNTION PANEL (STL) PLASMA Specimen Ty pe: PLASMA No comment entered. Ordering Provider: BYRON CARDONA Report Released Date/Time: Aug 21, 2024 10:18 AM Reporting Lab: [address] [address] Performing Lab: [address] [address] PROTEIN 6.0 g/dL 6-8.6 ALBUMIN 3.5 g/dL 3.4-5 TOTAL BILIRUBIN 0.5 mg/dL 0.2-1.2 ALKALINE PHOSPHATASE 79 U/L 40-150 AST/SGOT 20 U/L 5-34 ALT/SGPT 20 U/L 8-40 CONJ. BILIRUBIN 0.2 mg/dL 0-0.5 Aug 20, 2024 08:21 AM [facility] TACROLIMUS (STL-PB) BLOOD Specimen Type: BLOO D No comment entered. Ordering Provider: FRANCISCO DAILY Report Released Date/Time: Sep 01, 2023 11:30 AM Reporting Lab: [facility] [address] [place] [address] Performing Lab: [facility] [address] [place] [address] TACROLIMUS (STL-PB) 5.6 ng/mL Aug 20, 2024 08:21 AM [facility] RENAL PANEL PLASMA Specimen Type: PLASM A Comment: No hemolysis noted. Ordering Provider: FRANCISCO DAILY Report Released Date/Time: Sep 01, 2023 11:30 AM Reporting Lab: [address] [address] Performing Lab: [address] [address] CREATININE 2.38 mg/dL H 0.7-1.3 UREA NITROGEN 45.7 mg/dL H 9.0-25.0 GLUCOSE 145 mg/dL H 72-99 SODIUM 138 meq/L 136-145 POTASSIUM 5.2 meq/L H 3.5-5 CHLORIDE 109 meq/L H 98-107 CARBON DIOXIDE 20 meq/L L 22-31 CALCIUM 9.2 mg/dL 8.4-10.4 PHOSPHOROUS 4.1 mg/dL 2.3-4.7 ALBUMIN 3.5 g/dL 3.4-5 EGFR (CKD-EPI 2020) 28.6 >60 Aug 20, 2024 08:21 AM [facility] CBC BLOOD Specimen Type: BLOOD No comment entered. Ordering Provider: FRANCISCO DAILY Report Released Date/Time: Sep 01, 2023 11:30 AM Reporting Lab: [address] [address] Performing Lab: [address] [address] WBC 6.0 10*3/uL 3.6-11.2 RBC 3.92 10*6/uL [...] 0.00-0. 20 Aug 20, 2024 08:[address] [facility] URINALYSIS (STL-PB) URINE Specimen Type: URIN E No comment entered. Ordering Provider: FRANCISCO DAILY Report Released Date/Time: Sep 01, 2023 11:30 AM Reporting Lab: [facility] [address] [facility] [address] Performing Lab: [address] [address] URINE COLOR Light-Yellow Yellow U.BILIRUBIN Negative mg/dL Negative U.PH 5.5 5.0-8.0 URINE WBC/HPF 1 /[HPF] 0-5 URINE RBC/HPF 1 /[HPF] 0-5 APPEARANCE Clear Clear U.NITRITE Negative mg/dL Negative HYALINE CASTS 1 /[LPF] 0-5 URN.GLUCOSE 30 mg/dL H Negative URN.PROTEIN 20 mg/dL H URN.UROBILINOGEN Normal mg/dL Normal URN.BLOOD Negative mg/dL Negative-Trace URN.KETONES Negative mg/dL Negative-Trac e URN.LEUK.EST. Negative mg/dL Negative-Tr malu URN.SPECIFIC GRAVITY 1.019 Vital Signs: All taken on the encounter date This section contains inpatient and outpatient Vital Signs collected on the date of the Encounter. Date/Time Temperature Pulse Blood Pressure Respiratory Rate SP02 Pain Height Weight Body Mass Index Source Sep 18, 2024 01:59 PM 98.1 72 136/67 [address] [facility] Social History: Smoking Status (Most current) and Tobacco Use (All prior to encounter date) This section includes the most current, and the historical, smoking and tobacco- related health factors from the [place] facility where the Encounter took place. Current Smoking Status This section includes the most current smoking, or tobacco-related health factor, from the ME facility where the Encounter took place. Date/Time Current Smoking Status Comment Facil ity Nov 22, 2021 10:00 AM VA-TOBACCO NEVER USED [facility] Tobacco Use History This section includes a history of the smoking, or tobacco-related health factors, that were collected on or before the date of the Encounter. The data comes from the [place] facility where the Encounter took place. Date/Time Smoking Status/Tobacco Use Comment F acility Sep 26, 2018 08:30 AM VA-TOBACCO NEVER USED [facility] Jun 25, 2018 10:53 AM VA-TOBACCO NEVER USED [facility] Dec 22, 2017 10:58 AM VA-TOBACCO NEVER USED [facility] Jun 28, 2017 11:04 AM LIFETIME NON-USER OF TOBACCO [facility] Jun 21, 2017 09:54 AM LIFETIME NON-USER OF TOBAC CO non user . [facility] May 10, 2017 09:43 AM LIFETIME NON-USER OF TOBAC CO never [facility] Feb 17, 2017 08:27 AM LIFETIME NON-USER OF TOBACCO . [facility] January 14, 2016 02:12 PM LIFETIME NON-USER OF TOBACCO . [facility] Radiology Reports: +/- 30 days of the [...] the Encounter. The data comes from all [place] treatment facilities. Date/Time Radiology Report Provider Source Sep 10, 2024 08:50 AM CHEST X-RAY, 2 VIE WS: DAT GANNON [id number] M Exm Date: SEP 10, 2024@08:50 Req Phys: THI GAN Pat Loc: [facility] (Req'g Img Loc: -MAIN RADIOLOGY SUITE Service: Unknown [address] [address] (Case [id number] COMPLETE) CHEST X-RAY, 2 VIEWS (RAD Detailed) CPT:22349 Reason for Study: V/Q scan Clinical History: with V/Q scan fro comparison Report Status: Verified Date Reported: SEP 10, 2024 Date Verified: SEP 10, 2024 Field Sales Trainer E-Sig:/ES/CHIARA ALFORD Report: EXAMINATION: CHEST X-RAY, 2 [...] Primary Interpreting Staff: CHIARA ALFORD, Staff Physician (Field Sales Trainer) /CHIARA SOARES [facility] Sep 10, 2024 08:49 AM [place] LUNG V/Q -P: DAT GANNON [id number] [facility]1955 M Exm Date: SEP 10, 2024@08:49 Req Phys: THI GAN Pat Loc: [facility] (Req'g Img Loc: -NUCLEAR MEDICINE Service: Unknown [address] [address] (Case [id number] COMPLETE) PULMONARY VENTILATION AND PERFUSI(NM Detailed) CPT:04004 Reason for Study: oulmonary emboli (Case [id number] [...] 10, 2024 Date Verified: SEP 10, 2024 Field Sales Trainer E-Sig:/ES/Aleah Gaming MD,PhD Report: CASE #: [id number], [id number], [id number], [id number]. Examination: Ventilation/perfusion lung scan REFERRING PHYSICIAN: Dr. [...] obtained . COMPARISON: There is no prior [place] lung scan available for review. Chest x-ray [...] Staff: Aleah Gaming MD,PhD, Nuclear Medicine Physician (Field Sales Trainer) /ALEAH GILBERT [facility] Encounter Notes: All associated encounter notes This section contains the clinical notes associated to the Encounter. Date/Time Encounter Note(s) Provider Source Sep 18, 2024 02:56 PM PRIMARY CARE NOTE: LOCAL TITLE: PRIMARY CARE PROVIDER ESTABLISHED VISIT ST STANDARD TITLE: PRIMARY CARE NOTE DATE OF NOTE: SEP 18, 2024@14:56 ENTRY DATE: SEP 18, 2024@14:56:16 AUTHOR: HELEN MATTHEWS EXP COSIGNER: URGENCY: STATUS: COMPLETED ESTABLISHED PATIENT [id number]: REASON FOR VISIT/CHIEF COMPLAINT: f/u HPI: Patientith Cardiomyopathy, DM T1 wears insulin pump, LHC showed non obstructive CAD; s/p renal transplant, venous thrombosis, lymphedema, anemia of chr renal dz , HTN,MEDARDO, and HTN presents for f/u . In his w/u for dyspnea , echo showed pulmonary htn . He is scheduled for right cardiac catherization in September . He is w/o complaints . WHAT IS YOUR GOAL FOR TODAY? SOURCE(S) OF HISTORY: Patient PAST MEDICAL HISTORY: 1) Diabetic nephropathy (SNOMED CT 461836337) 2) Ulcer of lower Limb, unspecified (ICD-9-CM 707.10) 3) Erectile dysfunction due to diabetes mellitus (SNOMED CT 936109381) 4) Anemia in Chronic Kidney Disease (ICD-9-CM 285.21) 5) HTN - Hypertension (SNOMED CT 68547743) 6) GERD * (ICD-9-CM 530.81) 7) Acidosis, metabolic NEC (ICD-9-CM 276.2) 8) Diabetic nephropathy (SNOMED CT 706541605) 9) Hypertensive chronic kidney disease, unspecified, with chronic kidney disease St 10) History of - kidney recipient (SNOMED CT 117556840) 11) Other Fluid Overload (ICD-9-CM 276.69) 12) Anticoagulant effect 13) Insulin pump present 14) Sinus bradycardia 15) Permanent cardiac pacemaker 16) Therapeutic drug effect 17) Acute osteomyelitis of foot 18) History of venous thrombosis 19) Postthrombotic syndrome 20) Sleep apnea 21) Lack of exercise 22) Coronary artery disease 23) Osteopenia 24) Patent foramen ovale ALLERGIES: MORPHINE ALLERGY REVIEW: Allergy list reviewed and remains current. MEDICATION RECONCILIATION: I have reviewed the patient's medication list with the patient and/or his/her care-endoscopy support specialist. Handwritten corrections, additions and/or deletions were made to the list. Corrected Outpatient Medication List was provided to the patient/caregiver. Active Outpatient Medications (including Supplies): Active Outpatient Medications Status 1) APIXABAN 5MG TAB TAKE ONE TABLET BY MOUTH TWICE A DAY FOR ACTIVE ANTICOAGULATION 2) ATORVASTATIN CALCIUM 20MG TAB TAKE ONE-HALF TABLET BY MOUTH ACTIVE EVERY EVENING REPLACES SIMVASTATIN Indication: FOR HIGH CHOLESTEROL 3) BUMETANIDE 1MG TAB TAKE ONE TABLET BY MOUTH EVERY OTHER DAY ACTIVE REPLACES FUROSEMIDE Indication: FOR FLUID RETENTION (EDEMA) 4) COLESTIPOL HCL 1GM TAB TAKE ONE TABLET BY MOUTH EVERY ACTIVE MORNING AND EVENING (OTHER MEDICATIONS SHOULD BE TAKEN 1 HOUR BEFORE OR 4 HOURS AFTER COLESTIPOL) Indication: BILE SALT DIARRHEA 5) CONTOUR NEXT (GLUCOSE) TEST STRIP USE 1 STRIP FOR BLOOD TEST ACTIVE 6 TIMES A DAY Indication: FOR BLOOD SUGAR MONITORING 6) FERROUS SULFATE 325MG TAB TAKE ONE TABLET BY MOUTH ONCE A ACTIVE DAY FOR IRON SUPPLEMENTATION. 7) GLUCOSE 4GM CHEW TAB CHEW AND SWALLOW FOUR TABLETS BY MOUTH ACTIVE NEEDED REPEAT DOSE IF HYPOGLYCEMIA CONTINUES 15 MINUTES AFTER THE FIRST DOSE. Indication: FOR LOW BLOOD SUGAR 8) GLUCOSE SENSOR (4) GUARDIAN MMT-7040 USE 1 SENSOR UNDER THE ACTIVE SKIN EVERY WEEK Indication: FOR BLOOD SUGAR MONITORING 9) LISINOPRIL 40MG TAB TAKE ONE TABLET BY MOUTH ONCE A DAY FOR ACTIVE HEART OR BLOOD PRESSURE 10) METOPROLOL TARTRATE 100MG TAB TAKE ONE TABLET BY MOUTH TWICE ACTIVE A DAY FOR HEART/BLOOD PRESSURE. TAKE WITH OR IMMEDIATELY FOLLOWING FOOD. NEW DOSE 11) OMEPRAZOLE 40MG EC CAP TAKE ONE CAPSULE BY MOUTH EVERY ACTIVE (S) MORNING BEFORE A MEAL TO LOWER STOMACH ACID. TAKE 30 MINUTES PRIOR TO FOOD. 12) PREDNISONE 5MG TAB TAKE ONE TABLET BY MOUTH EVERY MORNING ACTIVE WITH FOOD 13) RESERVOIR,MINIMED #MMT-332A USE 1 RESERVOIR EVERY THREE ACTIVE (3) DAYS WITH INSULIN PUMP Indication: FOR DIABETES 14) SET,INFUSION MINIMED #MMT-396 USE 1 SET FOR UNDER THE SKIN ACTIVE EVERY THREE (3) DAYS TO BE USED WITH INSULIN PUMP. Indication: FOR INFUSION SET 15) SODIUM BICARBONATE 650MG TAB TAKE TWO TABLETS BY MOUTH TWICE ACTIVE A DAY 16) TACROLIMUS 1MG CAP TAKE TWO CAPSULES BY MOUTH EVERY MORNING ACTIVE AND TAKE ONE CAPSULE EVERY EVENING TO PREVENT TRANSPLANT REJECTION 17) TAMSULOSIN HCL 0.4MG CAP TAKE TWO CAPSULES BY MOUTH EVERY ACTIVE EVENING APPROXIMATELY 30 MINUTES AFTER THE SAME MEAL EACH DAY (FOR PROSTATE) Indication: FOR BENIGN PROSTATIC HYPERPLASIA PHYSICAL EXAMINATION: Male General appearance: VITALS (most recent, as listed in the electronic record): B/P: 136/67 (09/18/2024 13:59) Pulse: 72 (09/18/2024 13:59) Temperature: 98.1 F [36.7 C] (09/18/2024 13:59) Weight: 223.2 lb [101.24 kg] (09/18/2024 13:59) Height: 72 in [182.9 cm] (08/30/2024 08:51) BMI: 30.3 Pain: 7 (09/18/2024 13:59) (0-10 scale) Ears, Nose, Mouth, Throat: Eye:eomi ,perra Cardiovascular:rrr Respiratory:ctab ABD/GI:soft,nt ne Extremities:ambulates without assistance /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: Hematology & Lymph: Endocrine: Psych:appropriate afect Neuro: Skin: DATA REVIEW: HbA1C: HGA1C 8.0 H % 06/21/2024 08:53 Lipid Panel: TRIGLYCERIDE 95 mg/dL 03/21/2024 09:34 CHOLESTEROL 99 mg/dL 03/21/2024 09:34 HDL(New) 39 L mg/dL 03/21/2024 09:34 CALCULATED LDL 41 mg/dL 03/21/2024 09:34 CMP: SODIUM 138 mEq/L 08/20/2024 08:21 POTASSIUM 5.2 H mEq/L 08/20/2024 08:21 CHLORIDE 109 H mEq/L 08/20/2024 08:21 UREA NITROGEN 45.7 H mg/dL 08/20/2024 08:21 CREATININE 2.38 H mg/dL 08/20/2024 08:21 CALCIUM 9.2 mg/dL 08/20/2024 08:21 PROTEIN 6.0 g/dL 08/20/2024 08:21 ALBUMIN 3.5 g/dL 08/20/2024 08:21 ALKALINE PHOSPHATASE 79 U/L 08/20/2024 08:21 ALT/SGPT 20 U/L 08/20/2024 08:21 AST/SGOT 20 U/L 08/20/2024 08:21 TOTAL BILIRUBIN 0.5 mg/dL 08/20/2024 08:21 CARBON DIOXIDE 20 L mEq/L 08/20/2024 08:21 GLUCOSE 145 H mg/dL 08/20/2024 08:21 EGFR (CKD-EPI 2020) 28.6 08/20/2024 08:21 CBC: WBC 6.0 10*3/uL 08/20/2024 08:21 RBC 3.92 L 10*6/uL 08/20/2024 08:21 HGB 12.2 L g/dL 08/20/2024 08:21 HCT 36.4 L % 08/20/2024 08:21 MCV 92.9 fL 08/20/2024 08:21 MCH 31.1 pg 08/20/2024 08:21 MCHC 33.5 g/dL 08/20/2024 08:21 RDW 13.2 % 08/20/2024 08:21 PLT 157 10*3/uL 08/20/2024 08:21 MPV 10.3 fL 08/20/2024 08:21 NEUTROPHILS, AUTO % 52 % 08/20/2024 08:21 LYMPHOCYTES, AUTO % 30 % 08/20/2024 08:21 MONOCYTES, AUTO % 12 % 08/20/2024 08:21 EOSINOPHILS, AUTO % 5 % 08/20/2024 08:21 BASOPHILS, AUTO % 2 % 08/20/2024 08:21 NEUTROPHILS, ABSOLUTE 3.09 10*3/uL 08/20/2024 08:21 LYMPHOCYTES, ABSOLUTE 1.79 10*3/uL 08/20/2024 08:21 MONOCYTES, ABSOLUTE 0.72 10*3/uL 08/20/2024 08:21 EOSINOPHILS, ABSOLUTE 0.29 10*3/uL 08/20/2024 08:21 BASOPHILS, ABSOLUTE 0.09 10*3/uL 08/20/2024 08:21 NRBC% 0 #/100 (WBCs) 10/26/2022 16:17 IMMATURE [address]T FRACTION 3.8 % 04/01/2024 11:24 PSA: PROST. SPECIFIC AG.(PB-STL) 0.539 ng/mL 02/03/2023 08:11 TSH: No TSH (1YR) EO data found INR: INR VALUE 1.5 INR 05/05/2023 08:35 PROTIME 16.5 H sec 05/05/2023 08:35 UA: URINE COLOR Light-Yellow 08/20/2024 08:21 APPEARANCE Clear 08/20/2024 08:21 U.PH 5.5 08/20/2024 08:21 U.BILIRUBIN Negative mg/dL 08/20/2024 08:21 U.NITRITE Negative mg/dL 08/20/2024 08:21 URINE RBC/HPF 1 /HPF 08/20/2024 08:21 URINE WBC/HPF 1 /HPF 08/20/2024 08:21 BACTERIA RARE /HPF 06/21/2024 08:53 MUCUS RARE /LPF 06/21/2024 08:53 HYALINE CASTS 1 /LPF 08/20/2024 08:21 U.SPERM RARE /HPF 04/07/2023 08:35 Dilantin: ____ Digoxin: No data available for: DIGOXIN Chest x-ray: Impression for CHEST X-RAY, 2 VIEWS, 09/10/24, case [id number] 1. No cardiomegaly. Stable atrioventricular leads. 2. Stable mild old granulomatous disease since April 2021. No pulmonary edema, consolidation, pneumothorax or effusion. EKG: No data available for: EKG CONSULT STL EKG CONSULTS PB EKG RESULTS MA Result: Acceptable Follow-up Action: Data results reviewed with patient and/or ASSESSMENT/PLAN: 1. htn- stable - continue 1lisinopril to 40 mg, metoprolol 100 mg BID, norvasc 10 mg daily and lasix 20 mg daily. 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 4 CAD - non obstructive - followed by cardiology 5 dysthymia - stabe- continue counseling and effexor 75mg po daily 6 dyspnea - multifactorial - has pulm htn , scheudled for right heart cardiac cath - followed by pulm RTC in 6month PREVENTION & SCREENING: ALCOHOL: Clinical Reminder not due now or within a month BLOOD PRESSURE: Clinical Reminder not due now or within a month HEMOGLOBIN A1C: Clinical Reminder not due now or within a month /charly/ HELEN MATTHEWS Signed: 09/18/2024 15:13 HELEN MATTHEWS [facility] Sep 18, 2024 02:09 PM NURSING NOTE: LOCAL TITLE: V15 PACT FACE TO FACE NOTE STL STANDARD TITLE: NURSING NOTE DATE OF NOTE: SEP 18, 2024@14:09 ENTRY DATE: SEP 18, 2024@14:09:39 AUTHOR: AMAIRANI QUILES EXP COSIGNER: URGENCY: STATUS: COMPLETED Provider Visit: Patient Identifiers : Full Name Date of Reason for visit: Established Follow-Up Mode of Arrival: Ambulatory Allergy Review: MORPHINE Allergy list reviewed and remains current. Recent Vital Signs: Temperature: 98.1 F [36.7 C] (09/18/2024 13:59) Pulse: 72 (09/18/2024 13:59) Respiration: 18 (09/18/2024 13:59) B/P: 136/67 (09/18/2024 13:59) Pain: 7 (09/18/2024 13:59) Wt: 223.2 lb [101.24 kg] (09/18/2024 13:59) Ht: 72 in [182.9 cm] (08/30/2024 08:51) BMI: 30.3 POX: 97% (09/18/2024 13:59) Blood sugar glucometer readin (PER THIS MORNING AT HOME) PERSONAL HEALTH INVENTORY Notes: No data available for PHI note titles PERSONAL HEALTH INVENTORY - MAP: 06/29/2023 Personal Health Plan [place], Aspiration, Purpose (MAP) Getting back to doing the things I enjoy. What matters most to you in your life right now? - Would you like to discuss any personal problem, family problem, alcohol use, drug use, or a mental or emotional illness? No My [facility] ([facility]), please select appointment type: Face to face: Yes- Done Contact provided Primary Care phone number and encouraged to call if any questions or concerns. Review that after hours nurse line ext.[phone] and emergency room are available 03/04 for patient use. Contact verbalized good understanding. Alcohol Use Screen (AUDIT-C) - V: Alcohol Screen: SCREEN FOR ALCOHOL (AUDIT-C) An alcohol screening test (AUDIT-C) was negative (score=0). 1. How often did you have a drink containing alcohol in the past year? Consider a drink to be a 12 ounce can or bottle of regular beer, 8 ounces of malt liquor, a 5 ounce glass of table wine, or a 1.5 ounce shot of liquor (like scotch, gin, or vodka). Never 2. How many drinks containing alcohol did you have on a typical day when you were drinking in the past year? Response not required due to responses to other questions. 3. How often did you have six or more drinks on one occasion in the past year? Response not required due to responses to other questions. /charly/ AMAIRANI QUILES LICENSED PRACTICAL NURSE Signed: 09/18/2024 14:11 AMAIRANI QUILES [facility]
--- OUTSIDE RECORDS SUMMARY | 2024-09-25 04:45 | XMS_ITS | Encounter Summary ---
Author Name [facility] [place] [facility] Address [address] [place] [address] Care Team Providers Care Karate Teacher Name Role Phone HELEN MATTHEWS Primary Care [...] PART A Feb 09, 2019 PART A [id number] ANA GANNON EPH PATIENT MEDICARE (WNR) MEDICARE (M) PART B Feb 09, 2019 PART B [id number] ANA GANNON EPH PATIENT MEDICARE (WNR) MEDICARE (M) PART A Feb 09, 2019 PART A [id number] [phone] ANA GANNON EPH PATIENT MEDICARE (WNR) MEDICARE (M) PART B Feb 09, 2019 PART B [id number] ANA GANNON PATIENT MEDICARE (WNR) MEDICARE (M) PART A Feb 09, 2019 PART A [id number] ANA GANNON PATIENT MEDICARE (WNR) MEDICARE (M) PART B Feb 09, 2019 PART B [id number] ANA GANNON PATIENT MEDICARE PART D (WNR) MEDICARE (M) PART D Sep 11, 2019 PART D [id number] [phone] ANA GANNON PATIENT Selected Encounter This section includes the information on record at [place] for the Encounter. Date/Time Encounter Type Encounter Description Reason Provider Source Sep 25, 2024 09:45 AM OFFICE O/P EST LOW 20 MIN DERMATOLOGY ICD-10-CM L57.0 Actinic keratosis KATHLEEN WASHINGTON [facility] Encounter Template Text not used by [facility] Assessments - Encounter Diagnoses This section includes the primary and secondary diagnoses documented for the Encounter. Date/Time Primary/Secondary Diagnosis Diagnosis Name Provider Source Oct 08, 2024 01:35 PM PRIMARY [facility] Oct 08, 2024 01:35 PM SECONDARY Melanocytic nevi, unspecified [facility] Oct 08, 2024 01:35 PM SECONDARY Other melanin hyperpigmentation [facility] Oct 08, 2024 01:35 PM SECONDARY Personal history of other malignant neoplasm of skin [facility] Oct 08, 2024 01:35 PM SECONDARY Venous insufficiency (chronic) (peripheral) [facility] Plan of Treatment: Future Appointments (+ 6 months) and Future Tests (+/- 45 days) The Plan of Treatment section includes future care activities for the patient from all [place] treatmentfacilities. This section includes future appointments and future orders which are active, pending or scheduled. Future Appointments This section includes appointments that were scheduled to occur 6 months from the date of the Encounter, up to a maximum of 20 appointments. The data comes from all [place] treatment facilities. Appointment Date/Time Appointment Type Appointme nt Facility Name Oct 03, 2024 09:15 AM AMBULATORY - MEDIC[facility] Oct 03, 2024 09:30 AM AMBULATORY - MEDICINE [facility] Oct 04, 2024 06:45 AM AMBULATORY - NONE [facility] Oct 04, 2024 07:00 AM AMBULATORY - MEDICINE [facility] Oct 08, 2024 02:20 PM AMBULATORY - MEDICINE [facility] Nov 18, 2024 10:00 AM AMBULATORY - REHAB MEDICIN E [facility] Nov 22, 2024 10:00 AM AMBULATORY - MEDICINE [facility] Nov 26, 2024 02:00 PM AMBULATORY - MEDICINE [facility] Dec 12, 2024 09:00 AM AMBULATORY - MEDICINE [facility] Dec 26, 2024 12:45 PM AMBULATORY - MEDICINE [facility] Dec 26, 2024 01:00 PM AMBULATORY - MEDICINE [facility] Dec 27, 2024 09:56 AM AMBULATORY - MEDICINE [facility] Dec 31, 2024 10:00 AM AMBULATORY - MEDICINE [facility] January 30, 2025 10:00 AM AMBULATORY - MEDICINE [facility] February 06, 2025 10:00 AM AMBULATORY - MEDICINE [facility] Mar 06, 2025 10:00 AM AMBULATORY - MEDICINE [facility] Mar 18, 2025 11:00 AM AMBULATORY - MEDICINE [facility] Mar 25, 2025 01:00 PM AMBULATORY - MEDICINE [facility] Active, Pending, and Scheduled Orders This section includes a listing of several types of active, pending, and scheduled orders, including clinic medications orders, diagnostic test orders, procedure orders and consult orders; where the start date of the order is 45 days before the date of the Encounter or 45 days after the date of theEncounter. The data comes from all [facility] facilities. Test Date/Time Test Type Test Details Facility Name Oct 04, 2024 06:00 AM Laboratory - Blood Bank Order TYPE & SCREEN - LAB BLOOD WC [facility] Lab Results: +/- 30 days of [...] Type Comment Oct 04, 2024 08:50 AM [facility] GLUCOSE,BLOOD-poct (STL) BLOOD Specimen Type: BLOOD Comment: Test Performed by: [id number] Meter #: [id number] Ordering Provider: GONZALO WALTER Report Released Date/Time: Oct 04, 2024 05:32 PM Reporting Lab: [address] [address] Performing Lab: [address] [address] GLUCOSE,BLOOD-poct (STL) 127 mg/dL H 72-99 Oct 04, 2024 08:11 AM [facility] GLUCOSE,BLOOD-poct (STL) BLOOD Specimen Type: BLOOD Comment: Test Performed by: [id number] Meter #: [id number] Ordering Provider: HELEN MATTHEWS Report Released Date/Time: Oct 04, 2024 08:14 AM Reporting Lab: [address] [address] Performing Lab: [address] [address] GLUCOSE,BLOOD-poct (STL) 107 mg/dL H 72-99 Oct 04, 2024 08:06 AM [facility] POC AVOX PANEL BLOOD Specimen Type: BLOOD Comment: Test Performed by: [id number] Meter #: [id number] Ordering Provider: HELEN MATTHEWS Report Released Date/Time: Oct 04, 2024 08:15 AM Reporting Lab: [address] [address] Performing Lab: [address] [address] POC AVOX O2HB 72.9 L 92-100 POC AVOX THB 12.7 g/dL L 13.1-16.8 Oct 04, 2024 08:05 AM [facility] POC AVOX PANEL BLOOD Specimen Type: BLOOD Comment: Test Performed by: [id number] Meter #: [id number] Ordering Provider: HELEN MATTHEWS Report Released Date/Time: Oct 04, 2024 08:14 AM Reporting Lab: [address] [address] Performing Lab: [address] [address] POC AVOX O2HB 73.1 L 92-100 POC AVOX THB 12.8 g/dL L 13.1-16.8 Oct 04, 2024 08:04 AM [facility] POC AVOX PANEL BLOOD Specimen Type: BLOOD Comment: Test Performed by: [id number] Meter #: [id number] Ordering Provider: HELEN MATTHEWS Report Released Date/Time: Oct 04, 2024 08:13 AM Reporting Lab: [place] [address] [facility] [address] Performing Lab: [address] [address] POC AVOX O2HB 75.3 L 92-100 POC AVOX THB 12.7 g/dL L 13.1-16.8 Oct 04, 2024 08:03 AM [facility] POC AVOX PANEL BLOOD Specimen Type: BLOOD Comment: Test Performed by: [id number] Meter #: [id number] Ordering Provider: HELEN MATTHEWS Report Released Date/Time: Oct 04, 2024 08:13 AM Reporting Lab: [address] [address] Performing Lab: [address] [address] POC AVOX O2HB 73.4 L 92-100 POC AVOX THB 13.0 g/dL L 13.1-16.8 Oct 04, 2024 07:18 AM [facility] GLUCOSE,BLOOD-poct (STL) BLOOD Specimen Type: BLOOD Comment: Test Performed by: [id number] Meter #: [id number] Ordering Provider: GONZALO WALTER Report Released Date/Time: Oct 04, 2024 05:32 PM Reporting Lab: [address] [address] Performing Lab: [address] [address] GLUCOSE,BLOOD-poct (STL) 69 mg/dL L 72-99 Oct 04, 2024 07:17 AM [facility] PT/INR NEW (STL-MA) PLASMA Specimen Type: PLAS MA No comment entered. Ordering Provider: MENA AGGARWAL Report Released Date/Time: Sep 16, 2024 09:39 AM Reporting Lab: [address] [address] Performing Lab: [address] [address] PROTIME 12.1 s 9.4-12.5 INR VALUE 1.1 {INR} Oct 04, 2024 07:17 AM [facility] BASIC METABOLIC PANEL PLASMA Specimen Type: PL ASMA Comment: No hemolysis noted. Ordering Provider: MENA AGGARWAL Report Released Date/Time: Sep 16, 2024 09:39 AM Reporting Lab: [address] [address] Performing Lab: [address] [address] CREATININE 1.62 mg/dL H 0.7-1.3 UREA NITROGEN 31.2 mg/dL H 9.0-25.0 GLUCOSE 71 mg/dL L 72-99 SODIUM 138 meq/L 136-145 POTASSIUM 4.8 meq/L 3.5-5 CHLORIDE 108 meq/L H 98-107 CARBON DIOXIDE 21 meq/L L 22-31 CALCIUM 9.5 mg/dL 8.4-10.4 EGFR (CKD-EPI 2020) 45.4 >60 Oct 04, 2024 07:17 AM [facility] CBC BLOOD Specimen Type: BLOOD No comment entered. Ordering Provider: MENA AGGARWAL Report Released Date/Time: Sep 16, 2024 09:39 AM Reporting Lab: [address] [address] Performing Lab: [address] [address] WBC 6.7 10*3/uL 3.6-11.2 RBC 4.25 10*6/uL [...] 0.00-0. 20 Sep 19, 2024 09:40 AM [facility] RENAL PANEL PLASMA Specimen Type: PLASM A Comment: No hemolysis noted. Ordering Provider: FRANCISCO DAILY Report Released Date/Time: Sep 01, 2023 11:30 AM Reporting Lab: [address] [address] Performing Lab: [address] [address] CREATININE 1.60 mg/dL H 0.7-1.3 UREA NITROGEN 34.6 mg/dL H 9.0-25.0 GLUCOSE 141 mg/dL H 72-99 SODIUM 138 meq/L 136-145 POTASSIUM 4.9 meq/L 3.5-5 CHLORIDE 110 meq/L H 98-107 CARBON DIOXIDE 20 meq/L L 22-31 CALCIUM 9.6 mg/dL 8.4-10.4 PHOSPHOROUS 3.0 mg/dL 2.3-4.7 ALBUMIN 3.9 g/dL 3.4-5 EGFR (CKD-EPI 2020) 46.1 >60 Sep 19, 2024 09:40 AM [facility] URINALYSIS (STL-PB) URINE Specimen Type: URIN E No comment entered. Ordering Provider: FRANCISCO DAILY Report Released Date/Time: Sep 01, 2023 11:30 AM Reporting Lab: [place] [address] [facility] [address] Performing Lab: [address] [address] URINE COLOR Light-Yellow Yellow U.BILIRUBIN Negative mg/dL Negative U.PH 6.0 5.0-8.0 URINE WBC/HPF 1 /[HPF] 0-5 URINE RBC/HPF 1 /[HPF] 0-5 APPEARANCE Clear Clear U.NITRITE Negative mg/dL Negative URN.GLUCOSE 50 mg/dL H Negative URN.PROTEIN Negative mg/dL URN.UROBILINOGEN Normal mg/dL Normal URN.BLOOD Negative mg/dL Negative-Trace URN.KETONES Negative mg/dL Negative-Trac e URN.LEUK.EST. Negative mg/dL Negative-Tr malu URN.SPECIFIC GRAVITY 1.013 Sep 19, 2024 09:34 AM [facility] HGA1C BLOOD Specimen Type: BLOOD No comment entered. Ordering Provider: FRANCISCO DAILY Report Released Date/Time: Oct 10, 2023 12:32 PM Reporting Lab: [place] [address] [facility] [address] Performing Lab: [address] [address] HGA1C 7.4 H 4.0-6.0 Sep 19, 2024 09:34 AM [facility] TACROLIMUS (STL-PB) BLOOD Specimen Type: BLOO D No comment entered. Ordering Provider: FRANCISCO DAILY Report Released Date/Time: Oct 10, 2023 12:32 PM Reporting Lab: [place] [address] [facility] [address] Performing Lab: [facility] [address] [facility] [address] TACROLIMUS (STL-PB) 4.4 ng/mL Sep 19, 2024 09:34 AM [facility] CBC BLOOD Specimen Type: BLOOD No comment entered. Ordering Provider: FRANCISCO DAILY Report Released Date/Time: Oct 10, 2023 12:32 PM Reporting Lab: [facility] [address] [facility] [address] Performing Lab: [place] [address] [facility] [address] WBC 6.6 10*3/uL 3.6-11.2 RBC 4.18 10*6/uL [...] 0.00-0. 20 Sep 19, 2024 09:34 AM [facility] PROST. SPECIFIC AG.(PB-STL) SERUM Specimen Ty pe: SERUM Comment: The listed sex of this patient may not be a typical indication for this test. Therefore, reference ranges or interpretive criteria listed may not be valid. Clinical correlation suggested. Ordering Provider: HELEN MATTHEWS Report Released Date/Time: Sep 18, 2024 02:44 PM Reporting Lab: [facility] [address] [facility] [address] Performing Lab: [facility] [address] [facility] [address] PROST. SPECIFIC AG.(PB-STL) 0.418 ng/mL 0-4 Sep 19, 2024 09:34 AM [facility] LIPID PANEL (STL) PLASMA Specimen Type: PLASM A No comment entered. Ordering Provider: EHLEN MATTHEWS Report Released Date/Time: Sep 18, 2024 02:51 PM Reporting Lab: [facility] [address] [facility] [address] Performing Lab: [address] [address] CHOLESTEROL 92 mg/dL 0-200 TRIGLYCERIDE 68 mg/dL 0-150 CALCULATED LDL 35 mg/dL HDL(New) 43 mg/dL >40 Radiology Reports: +/- 30 days of the [...] the Encounter. The data comes from all [place] treatment facilities. Date/Time Radiology Report Provider Source Sep 10, 2024 08:50 AM CHEST X-RAY, 2 VIE WS: DAT GANNON [id number] -1955 Ex Date: SEP 10, 2024@08:50 Req Phys: THI GAN Pat Loc: [facility] (Req'g Img Loc: [facility] RADIOLOGY SUITE Service: [address] [address] (Case [id number] COMPLETE) CHEST X-RAY, 2 VIEWS (RAD Detailed) CPT:10342 Reason for Study: V/Q scan Clinical History: with V/Q scan fro comparison Report Status: Verified Date Reported: SEP 10, 2024 Date Verified: SEP 10, 2024 Frog Shaker E-Sig:/ES/CHIARA ALFORD Report: EXAMINATION: CHEST X-RAY, 2 [...] Primary Interpreting Staff: CHIARA ALFORD, Staff Physician (Frog Shaker) /CHIARA SOARES [facility] Sep 10, 2024 08:49 AM NM LUNG V/Q -P: DAT GANNON [id number] -1955 M Exm Date: SEP 10, 2024@08:49 Req Phys: THI GAN Pat Loc: [facility] (Req'g Img Loc: [facility] MED[facility] Service: Unknown [address] [address] (Case [id number] COMPLETE) PULMONARY VENTILATION AND PERFUSI(NM Detailed) CPT:41577 Reason for Study: oulmonary emboli (Case [id number] [...] 10, 2024 Date Verified: SEP 10, 2024 Frog Shaker E-Sig:/ES/Aleah Gaming MD,PhD Report: CASE #: [id number], [id number], [id number], [id number]. Examination: Ventilation/perfusion lung scan REFERRING PHYSICIAN: Dr. [...] obtained . COMPARISON: There is no prior CA lung scan available for review. Chest x-ray [...] MD,PhD, Nuclear Medicine Physician (Carlos) /ALEAH GILBERT [facility] Encounter Notes: All associated encounter notes This section contains the clinical notes associated to the Encounter. 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 Today, patient notes: No spots of concern.Patient has not noticed any non-healing sores, Patient was recently diagnosed with pulmonary hypertension. new/changing moles, or rashes. ALLERGIES MORPHINE REVIEW OF SYSTEMS No fever or chills --------- OBJECTIVE --------- Physical Examination - Trunk and extremities with scattered brown to skin colored uniform macules and thin papules - Hyperpigmented and mildly erythematous plaques on b/l shins -Thin pink papule with gritty scale left postauricular - Multiple WHSS, NER Otherwise: General Appearance: Well Appearing MALE, NAD Mood/Affect: pleasant/appropriate Face: WNL Ears: WNL Nose: WNL Forehead: WNL Scalp, Hair: WNL Neck: WNL Chest: WNL Abd: WNL Back: WNL Upper Extremities: WNL Lower Extremities: WNL Nails/Hair: WNL ASSESSMENT AND PLAN # Actinic keratoses -Discussed options: Observation vs LN2 vs 5FU -LN2 x 7 sec x 1 lesion -Blister care and photoprotection # Lentigines, trunk/extremities # Nevi - Benign, reassurance - Photoproteciton # Stasis dermatitis, hx of R DVT - Controlled with daily compression - Gentle skin care including frequent emollient - Encouraged compression stockings - Continue Sarna - Continue TMC 0.1% ointment BID prn; no rx needed today # History of NMSC # Immunosuppresion in the setting of renal transplant (2011) - NER at previous skin cancer sites - Educated on signs/symptoms of skin cancer - Photoprotection with SPF 30 or greater, wide-brimmed hat and sunprotective clothing encourage Return to clinic 1 year Ezio Alexander MD PGY-2 /charly/ Ezio Alexander MD Underliner Signed: 09/25/2024 09:45 /charly/ KATHLEEN WASHINGTON MD Dermatology Attending Physician Cosigned: 09/25/2024 11:28 09/25/2024 ADDENDUM STATUS: COMPLETED Reviewed documented history and physical examination and agree with assessment and plan. I was immediately available during entire visit and procedures. /charly/ KATHLEEN WASHINGTON MD Dermatology Attending Physician Signed: 09/25/2024 11:28 EZIO ALEXANDER [facility]
--- OUTSIDE RECORDS SUMMARY | 2024-10-03 04:30 | XMS_ITS | Encounter Summary ---
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 Name Role Phone HELEN MATTHEWS Primary [...] PART A Feb 09, 2019 PART A [id number] ANA GANNON EPH PATIENT MEDICARE (WNR) MEDICARE (M) PART B Feb 09, 2019 PART B [id number] ANA GANNON EPH PATIENT MEDICARE (WNR) MEDICARE (M) PART A Feb 09, 2019 PART A [id number] [phone] ANA GANNON EPH PATIENT MEDICARE (WNR) MEDICARE (M) PART B Feb 09, 2019 PART B [id number] ANA GANNON EPH PATIENT MEDICARE (WNR) MEDICARE (M) PART A Feb 09, 2019 PART A [id number] ANA GANNON EPH PATIENT MEDICARE (WNR) MEDICARE (M) PART B Feb 09, 2019 PART B [id number] ANA GANNON EPH PATIENT MEDICARE PART D (WNR) MEDICARE (M) PART D Sep 11, 2019 PART D [id number] ANA GANNON PATIENT Selected Encounter This section includes the information on record at [place] for the Encounter. Date/Time Encounter Type Encounter Description Reason Provider Source Oct 03, 2024 09:30 AM OFFICE O/P EST MOD 30 MIN CARDIOLOGY ICD-10-CM I48.0 Paroxysmal atrial fibrillation DAVION SKINNER [facility] Encounter Template Text not used by [place] Assessments - Encounter Diagnoses This section includes the primary and secondary diagnoses documented for the Encounter. Date/Time Primary/Secondary Diagnosis Diagnosis Name Provider Source Oct 03, 2024 02:02 PM PRIMARY Paroxysmal atrial fibrillation DAVION SKINNER [facility] Oct 03, 2024 02:02 PM SECONDARY Atherosclerosis of CABG w/o angina pectoris DAVION SKINNER [facility] Oct 03, 2024 02:02 PM SECONDARY Bradycardia, unspecified [facility] Oct 03, 2024 02:02 PM SECONDARY Encounter for therapeutic drug level monitoring DAVION SKINNER [facility] Oct 03, 2024 02:02 PM SECONDARY Hyp chr kidney disease w stage 5 chr kidney disease or ESRD DAVION SKINNER [facility] Oct 03, 2024 02:02 PM 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 DAVION SKINNER [facility] Oct 03, 2024 02:02 PM SECONDARY Other sleep apnea DAVION SKINNER [facility] Oct 03, 2024 02:02 PM SECONDARY Personal history of other venous thrombosis and embolism DAVION SKINNER [facility] Oct 03, 2024 02:02 PM SECONDARY Presence of cardiac pacemaker DAVION SKINNER [facility] Plan of Treatment: Future Appointments (+ 6 months) and Future Tests (+/- 45 days) The Plan of Treatment section includes future care activities for the patient from all [place] [facility] This section includes future appointments and future orders which are active, pending or scheduled. Future Appointments This section includes appointments that were scheduled to occur 6 months from the date of the Encounter, up to a maximum of 20 appointments. The data comes from all [place] treatment [facility]. Appointment Date/Time Appointment Type Appointme nt Facility Name Oct 04, 2024 06:45 AM AMBULATORY - NONE [facility] Oct 04, 2024 07:00 AM AMBULATORY - MEDICINE [facility] Oct 08, 2024 02:20 PM AMBULATORY - MEDICINE [facility] Nov 18, 2024 10:00 AM AMBULATORY - REHAB MEDICIN E [facility] Nov 22, 2024 10:00 AM AMBULATORY - MEDICINE [facility] Nov 26, 2024 02:00 PM AMBULATORY - MEDICINE [facility] Dec 12, 2024 09:00 AM AMBULATORY - MEDICINE [facility] Dec 26, 2024 12:45 PM AMBULATORY - MEDICINE [facility] Dec 26, 2024 01:00 PM AMBULATORY - MEDICINE [facility] Dec 27, 2024 09:56 AM AMBULATORY - MEDICINE [facility] Dec 31, 2024 10:00 AM AMBULATORY - MEDICINE [facility] January 30, 2025 10:00 AM AMBULATORY - MEDICINE [facility] February 06, 2025 10:00 AM AMBULATORY - MEDICINE [facility] Mar 06, 2025 10:00 AM AMBULATORY - MEDICINE [facility] Mar 18, 2025 11:00 AM AMBULATORY - MEDICINE [facility] Mar 25, 2025 01:00 PM AMBULATORY - MEDICINE [facility] Mar 27, 2025 12:15 PM AMBULATORY - MEDICINE [facility] Mar 27, 2025 12:30 PM AMBULATORY - MEDICINE [facility] Active, Pending, and Scheduled Orders [...] SCREEN - LAB BLOOD WC [facility] Lab Results: +/- 30 days of the encounter This section includes the Chemistry and Hematology Lab Results on record with [place] for the patient. Radiology Reports and Pathology Reports are provided separately, in subsequent sections. Lab Results This section contains the Chemistry/Hematology Results that were resulted 30 days before or 30 daysafter the date of the Encounter. Date/Time Source Result Type Result - Unit Interpretation Reference Range Specimen Type Comment Oct 04, 2024 08:50 AM [facility] GLUCOSE,BLOOD-poct (STL) BLOOD Specimen Type: BLOOD Comment: Test Performed by: [id number] Meter #: [id number] Ordering Provider: GONZALO WALTER Report Released Date/Time: Oct 04, 2024 05:32 PM Reporting Lab: [address] [address] Performing Lab: [address] [address] GLUCOSE,BLOOD-poct (STL) 127 mg/dL H 72-99 Oct 04, 2024 08:11 AM [facility] GLUCOSE,BLOOD-poct (STL) BLOOD Specimen Type: BLOOD Comment: Test Performed by: [id number] Meter #: [id number] Ordering Provider: HELEN MATTHEWS Report Released Date/Time: Oct 04, 2024 08:14 AM Reporting Lab: [address] [address] Performing Lab: [address] [address] GLUCOSE,BLOOD-poct (STL) 107 mg/dL H 72-99 Oct 04, 2024 08:06 AM [facility] POC AVOX PANEL BLOOD Specimen Type: BLOOD Comment: Test Performed by: [id number] Meter #: [id number] Ordering Provider: HELEN MATTHEWS Report Released Date/Time: Oct 04, 2024 08:15 AM Reporting Lab: [address] [address] Performing Lab: [address] [address] POC AVOX O2HB 72.9 L 92-100 POC AVOX THB 12.7 g/dL L 13.1-16.8 Oct 04, 2024 08:05 AM [facility] POC AVOX PANEL BLOOD Specimen Type: BLOOD Comment: Test Performed by: [id number] Meter #: [id number] Ordering Provider: HELEN MATTHEWS Report Released Date/Time: Oct 04, 2024 08:14 AM Reporting Lab: [address] [address] Performing Lab: [address] [address] POC AVOX O2HB 73.1 L 92-100 POC AVOX THB 12.8 g/dL L 13.1-16.8 Oct 04, 2024 08:04 AM [facility] POC AVOX PANEL BLOOD Specimen Type: BLOOD Comment: Test Performed by: [id number] Meter #: [id number] Ordering Provider: HELEN MATTHEWS Report Released Date/Time: Oct 04, 2024 08:13 AM Reporting Lab: [address] [address] Performing Lab: [address] [address] POC AVOX O2HB 75.3 L 92-100 POC AVOX THB 12.7 g/dL L 13.1-16.8 Oct 04, 2024 08:03 AM [facility] POC AVOX PANEL BLOOD Specimen Type: BLOOD Comment: Test Performed by: [id number] Meter #: [id number] Ordering Provider: HELEN MATTHEWS Report Released Date/Time: Oct 04, 2024 08:13 AM Reporting Lab: [address] [address] Performing Lab: [address] [address] POC AVOX O2HB 73.4 L 92-100 POC AVOX THB 13.0 g/dL L 13.1-16.8 Oct 04, 2024 07:18 AM [facility] GLUCOSE,BLOOD-poct (STL) BLOOD Specimen Type: BLOOD Comment: Test Performed by: [id number] Meter #: [id number] Ordering Provider: GONZALO WALTER Report Released Date/Time: Oct 04, 2024 05:32 PM Reporting Lab: [address] [address] Performing Lab: [address] [address] GLUCOSE,BLOOD-poct (STL) 69 mg/dL L 72-99 Oct 04, 2024 07:17 AM [facility] PT/INR NEW (L-MA) PLASMA Specimen Type: PLAS MA No comment entered. Ordering Provider: MENA AGGARWAL Report Released Date/Time: Sep 16, 2024 09:39 AM Reporting Lab: [address] [address] Performing Lab: [address] [address] PROTIME 12.1 s 9.4-12.5 INR VALUE 1.1 {INR} Oct 04, 2024 07:17 AM [facility] BASIC METABOLIC PANEL PLASMA Specimen Type: PL ASMA Comment: No hemolysis noted. Ordering Provider: MENA AGGARWAL Report Released Date/Time: Sep 16, 2024 09:39 AM Reporting Lab: [address] [address] Performing Lab: [address] [address] CREATININE 1.62 mg/dL H 0.7-1.3 UREA NITROGEN 31.2 mg/dL H 9.0-25.0 GLUCOSE 71 mg/dL L 72-99 SODIUM 138 meq/L 136-145 POTASSIUM 4.8 meq/L 3.5-5 CHLORIDE 108 meq/L H 98-107 CARBON DIOXIDE 21 meq/L L 22-31 CALCIUM 9.5 mg/dL 8.4-10.4 EGFR (CKD-EPI 2020) 45.4 >60 Oct 04, 2024 07:17 AM [facility] CBC BLOOD Specimen Type: BLOOD No comment entered. Ordering Provider: MENA AGGARWAL Report Released Date/Time: Sep 16, 2024 09:39 AM Reporting Lab: [address] [address] Performing Lab: [address] [address] WBC 6.7 10*3/uL 3.6-11.2 RBC 4.25 10*6/uL [...] 0.00-0. 20 Sep 19, 2024 09:40 AM [facility] RENAL PANEL PLASMA Specimen Type: PLASM A Comment: No hemolysis noted. Ordering Provider: FRANCISCO DAILY Report Released Date/Time: Sep 01, 2023 11:30 AM Reporting Lab: [address] [address] Performing Lab: [address] [address] CREATININE 1.60 mg/dL H 0.7-1.3 UREA NITROGEN 34.6 mg/dL H 9.0-25.0 GLUCOSE 141 mg/dL H 72-99 SODIUM 138 meq/L 136-145 POTASSIUM 4.9 meq/L 3.5-5 CHLORIDE 110 meq/L H 98-107 CARBON DIOXIDE 20 meq/L L 22-31 CALCIUM 9.6 mg/dL 8.4-10.4 PHOSPHOROUS 3.0 mg/dL 2.3-4.7 ALBUMIN 3.9 g/dL 3.4-5 EGFR (CKD-EPI 2020) 46.1 >60 Sep 19, 2024 09:40 AM [facility] URINALYSIS (STL-PB) URINE Specimen Type: URIN E No comment entered. Ordering Provider: FRANCISCO DAILY Report Released Date/Time: Sep 01, 2023 11:30 AM Reporting Lab: [address] [address] Performing Lab: [address] [address] URINE COLOR Light-Yellow Yellow U.BILIRUBIN Negative mg/dL Negative U.PH 6.0 5.0-8.0 URINE WBC/HPF 1 /[HPF] 0-5 URINE RBC/HPF 1 /[HPF] 0-5 APPEARANCE Clear Clear U.NITRITE Negative mg/dL Negative URN.GLUCOSE 50 mg/dL H Negative URN.PROTEIN Negative mg/dL URN.UROBILINOGEN Normal mg/dL Normal URN.BLOOD Negative mg/dL Negative-Trace URN.KETONES Negative mg/dL Negative-Trac e URN.LEUK.EST. Negative mg/dL Negative-Tr sam URN.SPECIFIC GRAVITY 1.013 Sep 19, 2024 09:34 AM [facility] HGA1C BLOOD Specimen Type: BLOOD No comment entered. Ordering Provider: FRANCISCO DAILY Report Released Date/Time: Oct 10, 2023 12:32 PM Reporting Lab: [address] [address] Performing Lab: [address] [address] HGA1C 7.4 H 4.0-6.0 Sep 19, 2024 09:34 AM [facility] TACROLIMUS (STL-PB) BLOOD Specimen Type: BLOO D No comment entered. Ordering Provider: FRANCISCO DAILY Report Released Date/Time: Oct 10, 2023 12:32 PM Reporting Lab: [address] [address] Performing Lab: [address] [address] TACROLIMUS (STL-PB) 4.4 ng/mL Sep 19, 2024 09:34 AM [facility] CBC BLOOD Specimen Type: BLOOD No comment entered. Ordering Provider: FRANCISCO DAILY Report Released Date/Time: Oct 10, 2023 12:32 PM Reporting Lab: [address] [address] Performing Lab: [address] [address] WBC 6.6 10*3/uL 3.6-11.2 RBC 4.18 10*6/uL [...] 0.00-0. 20 Sep 19, 2024 09:34 AM [facility] PROST. SPECIFIC AG.(PB-STL) SERUM Specimen Ty pe: SERUM Comment: The listed sex of this patient may not be a typical indication for this test. Therefore, reference ranges or interpretive criteria listed may not be valid. Clinical correlation suggested. Ordering Provider: HELEN MATTHEWS Report Released Date/Time: Sep 18, 2024 02:44 PM Reporting Lab: [address] [address] Performing Lab: [address] [address] PROST. SPECIFIC AG.(PB-STL) 0.418 ng/mL 0-4 Sep 19, 2024 09:34 AM [facility] LIPID PANEL (STL) PLASMA Specimen Type: PLASM A No comment entered. Ordering Provider: HELEN MATTHEWS Report Released Date/Time: Sep 18, 2024 02:51 PM Reporting Lab: [facility] [address] [place] [address] Performing Lab: [address] [address] CHOLESTEROL 92 mg/dL 0-200 TRIGLYCERIDE 68 mg/dL 0-150 CALCULATED LDL 35 mg/dL HDL(New) 43 mg/dL >40 Vital Signs: All taken on the encounter date This section contains inpatient and outpatient Vital Signs collected on the date of the Encounter. Date/Time Temperature Pulse Blood Pressure Respiratory Rate SP02 Pain Height Weight Body Mass Index Source Oct 03, 2024 09:24 AM 97.8 68 144/70 16 98 0 223.9 30 [facility] Social History: Smoking Status (Most [...] 2024 02:09 PM VA-TOBACCO NEVER USED [facility] Tobacco Use History This section includes a history of the smoking, or tobacco-related health factors, that were collected on or before the date of the Encounter. The data comes from the [place] facility where the Encounter took place. Date/Time Smoking Status/Tobacco Use Comment F acility Nov 07, 2022 01:35 PM VA-TOBACCO NEVER USED [facility] Mar 17, 2021 07:44 PM ORYX ADMIT TOBACCO SCREEN NO [facility] Dec 18, 2020 11:14 PM VA-TOBACCO NEVER USED [facility] Dec 18, 2020 08:23 PM ORYX ADMIT TOBACCO SCREEN NO [facility] Nov 14, 2006 01:52 PM LIFETIME NON-USER OF TOBACCO [facility] Nov 22, 2005 02:20 PM LIFETIME NON-TOBACCO USER [facility] Dec 08, 2004 01:37 PM LIFETIME NON-TOBACCO USER [facility] Jul 28, 2004 01:13 PM LIFETIME NON-TOBACCO USER [facility] Jul 09, 2003 01:05 PM LIFETIME NON-TOBACCO USER [facility] Jun 26, 2002 02:05 PM LIFETIME NON-TOBACCO USER [facility] May 23, 2001 01:12 PM LIFETIME NON-TOBACCO USER [facility] Jun 14, 2000 01:24 PM LIFETIME NON-TOBACCO USER [facility] Radiology Reports: +/- 30 days [...] CHEST X-RAY, 2 VIE WS: DAT GANNON [id number] -[id number] M Exm Date: SEP 10, 2024@08:50 Req Phys: THI GAN Pat Loc: [facility] (Req'g Img Loc: -MAIN RADIOLOGY SUITE Service: Unknown [address] [address] (Case [id number] COMPLETE) CHEST X-RAY, 2 VIEWS (RAD Detailed) CPT:51232 Reason for Study: V/Q scan Clinical History: with V/Q scan fro comparison Report Status: Verified Date Reported: SEP 10, 2024 Date Verified: SEP 10, 2024 Rate Manager E-Sig:/ES/CHIARA ALFORD Report: EXAMINATION: CHEST X-RAY, 2 [...] Primary Interpreting Staff: CHIARA ALFORD, Staff Physician (Rate Manager) /CHIARA SOARES [facility] Sep 10, 2024 08:49 AM [place] LUNG V/Q -P: DAT GANNON [id number] -[id number] M Exm Date: SEP 10, 2024@08:49 Req Phys: THI GAN Loc: [facility] (Req'g Img Loc: -NUCLEAR MEDICINE Service: Unknown [address] [address] (Case [id number] COMPLETE) PULMONARY VENTILATION AND PERFUSI(NM Detailed) CPT:68158 Reason for Study: oulmonary emboli (Case [id number] [...] 10, 2024 Date Verified: SEP 10, 2024 Rate Manager E-Sig:/ES/Aleah Gaming MD,PhD Report: CASE #: [id number], [id number], [id number], [id number]. Examination: Ventilation/perfusion lung scan REFERRING PHYSICIAN: Dr. THI GAN. HISTORY: 69-year-old male with history of right lower extremity DVT in 2013 presenting with new pulmonary hypertension, dyspnea and [...] obtained . COMPARISON: There is no prior [place] lung scan available for review. Chest x-ray [...] Staff: Aleah Gaming MD,PhD, Nuclear Medicine Physician (Rate Manager) /ALEAH GILBERT [facility] Encounter Notes: All associated encounter notes This section contains the clinical notes associated to the Encounter. 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 He reports having a right heart cath tomorrow. DMT2 on insulin managed by PCP, CAD noted to be nonobstructive per heart cath in 2022, MEDARDO using his CPAP, hypertension. Device check today showed several episodes of atrial fib, atrial rate in the 300s with V rate in the 80s to 90s. With some outliers in the 100s to 110s. He had a 1% burden since October 2023. Longest episode was 19 hours with an average rate in the 80s. He was unaware that he had atrial fib and education was given. He is protected with apixaban 5 mg twice daily for stroke prophylaxis. [id number] HTN, CAD, DMT2, age, CRD =5 reports continued shortness of breath, denies chest pain, does get a little dizzy/lightheaded. He reported a syncopal episode couple months ago that coincided with the atrial fib episodes noted on July 05 for . There have been no episodes of syncope or atrial fib. Since July 06, He does see lymphedema clinic for the right lower leg swelling. He denies excessive bruising or bleeding with the apixaban. He did not notice any fast or irregular heartbeats. Social hx: Denies smoking, excessive alcohol use, denies recreational drug use Family hx: Noncontributory ROS: 11 point review of systems completed with all pertinent information placed in HPI Review of Systems: GEN: no notable weight loss or gain reported, energy status stable Skin: no rashes or bruising/redness HEENT: no sinus complaints, no hearing loss reported, no visual changes Lungs: no cough, wheezing, or hemoptysis CV: See HPI GI: no diarrhea, abd pain, melena or BRBPR : no dysuria reported or hematuria Musc: no back or neck pain or joint/range of motion problems Endo: no heat or cold intolerance reported, polyuria/-dypsia Neuro: no stroke symptoms, numbness, tingling, balance problems ACTIVE PROBLEMS:1) Diabetic nephropathy (SNOMED CT 217914020) 2) Ulcer of lower Limb, unspecified (ICD-9-CM 707.10) 3) Erectile dysfunction due to diabetes mellitus (SNOMED CT 867731830) 4) Anemia in Chronic Kidney Disease (ICD-9-CM 285.21) 5) HTN - Hypertension (SNOMED CT 79860028) 6) GERD * (ICD-9-CM 530.81) 7) Acidosis, metabolic NEC (ICD-9-CM 276.2) 8) Diabetic nephropathy (SNOMED CT 273706761) 9) Hypertensive chronic kidney disease, unspecified, with chronic kidney disease St 10) History of - kidney recipient (SNOMED CT 901100262) 11) Other Fluid Overload (ICD-9-CM 276.69) 12) Anticoagulant effect 13) Insulin pump present 14) Sinus bradycardia 15) Permanent cardiac pacemaker 16) Therapeutic drug effect 17) Acute osteomyelitis of foot 18) History of venous thrombosis 19) Postthrombotic syndrome 20) Sleep apnea 21) Lack of exercise 22) Coronary artery disease 23) Osteopenia 24) Patent foramen ovale ALLERGIES:MORPHINE ACTIVE MEDICATIONS: Active and Recently Outpatient Medications (including Supplies): Active Outpatient Medications Status 1) AMLODIPINE BESYLATE 10MG TAB TAKE ONE TABLET BY MOUTH ONCE A ACTIVE DAY Indication: FOR HIGH BLOOD PRESSURE 2) APIXABAN 5MG TAB TAKE ONE TABLET [...] AFTER COLESTIPOL) Indication: BILE SALT DIARRHEA 6) FERROUS SULFATE 325MG TAB TAKE ONE [...] (FOR PROSTATE) Indication: FOR BENIGN PROSTATIC HYPERPLASIA Inactive Outpatient Medications Status 1) ACCU-CHEK GUIDE (GLUCOSE) TEST STRIP USE 1 STRIP FOR BLOOD TEST 6 TIMES A DAY *INSULIN PUMP THERAPY* Sep Indication: FOR BLOOD SUGAR MONITORING 2) CONTOUR NEXT (GLUCOSE) TEST STRIP USE 1 STRIP FOR BLOOD TEST 6 TIMES A DAY Indication: FOR BLOOD SUGAR MONITORING 19 Total Medications All cardiac medications listed above were reconciled during the visit ECHO:05/21/2024 Conclusion 1. Normal left ventricular size. Mild left [...] elevated pulmonary pressures. ALEJANDRA 03-24-2021 confirmed PFO. CORONARY ANGIOGRAPHY [place] Vessels Summary: Nonobstructive CAD Dominance: Right dominant Narrative Description: i. Left main: Medium caliber vessel, bifurcates into left anterior descending artery and left circumflex artery. No angiographically significant disease. ii. LAD: Medium caliber, calcified vessel. Proximal segment with 25-30% lesion. Mid segment with 40-45% lesion. Gives off diagonal branches, septal perforators. 2nd diagonal branch with 30-35% stenosis in proximal segment. The distal LAD is a small caliber vessel which terminates by wrapping around the apex. Distal segment with 40-45% stenosis. iii. LCx: Non-dominant, medium caliber vessel. Gives off medium caliber, high take-off, bifurcating OM1, bifurcating OM2 and OM3 branches before coursing distally in AV groove. Proximal segment of OM1 branch with 25-30% stenosis. iv. RCA: Dominant, Medium caliber, calcified vessel. Proximal segment with 20-25% lesion. Mid segment with 25-30% lesion. Gives off rPDA, rPLV branches. Mild luminal irregularities distally. DC PM [employer] [id number] Jul 06, 2024 02:14 ATR Avg V Rate in ATR: 82 bpm 04:45:50 ATR-108 Jul 06, 2024 02:11 ATR Avg V Rate in ATR: 100 bpm 00:02:35 ATR-107 Jul 06, 2024 02:10 ATR Avg V Rate in ATR: 103 bpm 00:01:49 ATR-106 Jul 05, 2024 21:50 ATR Avg V Rate in ATR: 90 bpm 04:19:54 ATR-105 Jul 05, 2024 16:38 ATR Avg V Rate in ATR: 97 bpm 05:11:47 ATR-104 Jul 05, 2024 16:35 ATR Avg V Rate in ATR: 98 bpm 00:00:17 May 17, 2024 05:11 ATR Avg V Rate in ATR: 81 bpm 01:40:32 [id number]-10Se2023 03:18 ATR Avg V Rate in ATR: 84 bpm 01:52:47 ATR-101 May 17, 2024 03:13 ATR Avg V Rate in ATR: 93 bpm 00:05:12 Mar 18, 2024 04:21 ATR Avg V Rate in ATR: 87 bpm 02:10:20 ATR-50 Mar 18, 2024 04:21 ATR Avg V Rate in ATR: 87 bpm 00:00:38 ATR-49 Mar 18, 2024 04:01 ATR Avg V Rate in ATR: 83 bpm 00:19:59 ATR-48 Mar 18, 2024 03:45 ATR Avg V Rate in ATR: 78 bpm 00:15:27 ATR-47 Mar 18, 2024 03:21 ATR Avg V Rate in ATR: 78 bpm 00:23:55 ATR-46 Mar 06, 2024 13:13 ATR Avg V Rate in ATR: 83 bpm 19:52:53 ATR-45 Mar 06, 2024 10:16 ATR Avg V Rate in ATR: 89 bpm 02:57:38 ATR-44 January 28, 2024 02:35 ATR Avg V Rate in ATR: 83 bpm 06:08:39 LAST LABS: TSH: TSH 2.446 uIU/mL 02/03/2023 08:11 TRIGLYCERIDE 68 mg/dL 09/19/2024 09:34 CHOLESTEROL 92 mg/dL 09/19/2024 09:34 HDL(New) 43 mg/dL 09/19/2024 09:34 CALCULATED LDL 35 mg/dL 09/19/2024 09:34 HGA1C 7.4 H % 09/19/2024 09:34 Comprehensive Metabolic Panel Results: SODIUM 138 mEq/L 09/19/2024 09:40 POTASSIUM 4.9 mEq/L 09/19/2024 09:40 CHLORIDE 110 H mEq/L 09/19/2024 09:40 UREA NITROGEN 34.6 H mg/dL 09/19/2024 09:40 CREATININE 1.60 H mg/dL 09/19/2024 09:40 CALCIUM 9.6 mg/dL 09/19/2024 09:40 PROTEIN 6.0 g/dL 08/20/2024 08:21 ALBUMIN 3.9 g/dL 09/19/2024 09:40 ALKALINE PHOSPHATASE 79 U/L 08/20/2024 08:21 ALT/SGPT 20 U/L 08/20/2024 08:21 AST/SGOT 20 U/L 08/20/2024 08:21 TOTAL BILIRUBIN 0.5 mg/dL 08/20/2024 08:21 CARBON DIOXIDE 20 L mEq/L 09/19/2024 09:40 GLUCOSE 141 H mg/dL 09/19/2024 09:40 EGFR (CKD-EPI 2020) 46.1 09/19/2024 09:40 WBC 6.6 10*3/uL 09/19/2024 09:34 RBC 4.18 10*6/uL 09/19/2024 09:34 HGB 12.8 L g/dL 09/19/2024 09:34 HCT 37.1 L % 09/19/2024 09:34 MCV 88.8 fL 09/19/2024 09:34 MCH 30.6 pg 09/19/2024 09:34 MCHC 34.5 g/dL 09/19/2024 09:34 RDW 12.8 % 09/19/2024 09:34 PLT 154 10*3/uL 09/19/2024 09:34 MPV 9.8 fL 09/19/2024 09:34 NEUTROPHILS, AUTO % 71 % 09/19/2024 09:34 LYMPHOCYTES, AUTO % 15 % 09/19/2024 09:34 MONOCYTES, AUTO % 9 % 09/19/2024 09:34 EOSINOPHILS, AUTO % 4 % 09/19/2024 09:34 BASOPHILS, AUTO % 1 % 09/19/2024 09:34 NEUTROPHILS, ABSOLUTE 4.63 10*3/uL 09/19/2024 09:34 LYMPHOCYTES, ABSOLUTE 1.00 10*3/uL 09/19/2024 09:34 MONOCYTES, ABSOLUTE 0.58 10*3/uL 09/19/2024 09:34 EOSINOPHILS, ABSOLUTE 0.27 10*3/uL 09/19/2024 09:34 BASOPHILS, ABSOLUTE 0.06 10*3/uL 09/19/2024 09:34 NRBC% 0 #/100 (WBCs) 10/26/2022 16:17 IMMATURE [address]T FRACTION 3.8 % 04/01/2024 11:24 PHYSICAL ASSESSMENT GENERAL: well-mannered, well-groomed 69 yo male NECK: no JVD, no carotid bruit CARDIO: RRR, S1S2 present, no murmur PULM: LSCB, no cough, rales or wheeze ABDOMEN: nondistended, nontender and soft EXTREMITIES: 2+ post tibial pulses, with no edema NEUROLOGIC: AAOx3, normal motor strength PSYCHIATRIC: affect and mood normal VITALS: 223.2 lb [101.24 kg] (09/18/2024 13:59) 72 in [182.9 cm] (08/30/2024 08:51) Temperature: 97.8 F [36.6 C] (10/03/2024 09:24) Blood Pressure: 144/70 (10/03/2024 09:24) Pulse: 68 (10/03/2024 09:24) Respirations: 16 (10/03/2024 09:24) ECG: Atrial paced rhythm 60 bpm Date Verified: May 09, 2023@15:05:35 91042.2 Ventricular Rate: 60 BPM 00453.3 Atrial Rate: 60 BPM 78556.4 P-R Interval: 202 ms 63890.5 QRS Duration: 76 ms 25610.6 Q-T Interval: 386 ms 98555 QTC Calculation(Bazett)386 ms 78496.12 Calculated P [place]: 13 degrees 58904.13 Calculated R [place]: 15 degrees 07674.14 Calculated T Kirkwood: 57 degrees Atrial-paced rhythm Possible Lateral infarct , age undetermined Abnormal ECG When compared with ECG of 21-FEB-2023 10:44, T wave inversion now evident in Lateral leads ASSESSMENT AND PLAN 1.bradycardia s/p pacemaker. device check showed atrial fib which coincides with 's near syncope episode in June. Rates were fairly controlled. No episodes since July 06. He is on anticoagulation with apixaban 5 mg twice daily. [id number] HTN, CAD, DMT2, age, CRD =5 placed [employer] DC PM 12/18/2018 2. CRF will monitor closely Status post kidney transplant: March 2012 Last K4.9, creatinine 1.60 recurrent LE swelling on Bumex 1 mg as needed Does see lymphedema clinic Tacrolimus 2 mg daily and 1 mg in the evening to prevent transplant rejection Sodium bicarb 1300 mg 2X/day per renal K 4.9, creatinine 1.6 3.Rt leg swelling d/t lymphedema:uses pneumatic PCP rec: Ensure FU in lymphedema clinic Pt needs to be fitted for wraps or hose. 4. HLD: last LDL 35 mg/dL Continue atorvastatin 10 mg 124 clinic BP 144 5. History of venous thrombosis right leg\ after transplant Continue apixaban Follow-up with vascular per clinical indications 6. COPD:has pulmonary HTN has RHC tomorrow Comanaged with pulmonology 7. DMT2: Last A1c 7.4 Continue insulin and follow-up PCP 8. CAD: Nonobstructive Negative for angina or anginal equivalent Continue metoprolol, atorvastatin, amlodipine, lisinopril 9. MEDARDO using CPAP 10. HTN HTN BP 144/70 Continue amlodipine, lisinopril, metoprolol tartrate, Bumex as needed RTC in 6 months Spent 40 min reviewing records/labs/obtaining history/examining patient/ordering labs, tests, medications/discussing results and plan with patient and/or outside provider. All patients are counseled on the risks of smoking at every visit including patients with no history of smoking in order to dissuade them from starting the use of tobacco products; former smokers to minimize recidivism of nicotine dependence: and current smokers in an effort to help them cease the use of nicotine products. Where relevant [age between 50-60-years and history of smoking], we and/or the PCP will obtain an abdominal ultrasound to screen for the possibility of an abdominal aortic aneurysm and ABIs to screen for occult PAD. When completed, the results will be found in [facility]. # HEALTH PROMOTION/HEALTH MAINTENANCE & EDUCATION DISEASE: Discussed treatment options & counseled on exacerbating factors. # DIAGNOSTIC TESTING AND LABORATORY DATA: Pertinent labs and diagnostic tests (both normal and abnormal) are included above and were reviewed and discussed with the patient within 7-days of the test and during this visit. - DISEASE: Coordinated care; discussed treatment options, & counseled on exacerbating factors. - Encouraged participation in regular exercise program 3-5 days/week - Maximize risk factor reduction & lifestyle modifications i.e. BP <130/80 and LDL goal <70 - Discussed at length about lifestyle modifications in regard to diet, exercise, and medication compliance. -Assessed smoking habits and whether actively using tobacco products or a past history of nicotine dependence, smoking cessation strategies were reinforced. - In patients with a history of CHF, SAM/ARB use is considered and held when contraindications such as allergies, renal function preclude use. If not mentioned in the above note, these assessments are detailed in prior cardiology notes. The patient verbalized understanding of information regarding: labs, meds, and plans for care. Reinforcement is indicated. # MEDICATION RECONCILIATION: - All cardiac medications were reconciled during the visit. - All patients with an EF </= 40% are considered for Sam inhibitors or ARBs except when contraindicated due to intolerance/allergy, hypotension, or renal disease. Documentation is found in the historical record if not repeated in this note. - All patients with an EF </= 40% are considered for beta blockers and aspirin, contraindicated due to intolerance/allergy, hypotension, bradycardia, or bleeding risk. Documentation is found in the historical record if not repeated in this note. - Anticoagulation therapy was discussed with all patients in the setting of atrial flutter/fibrillation and held in cases where the complications of bleeding (e.g., fall risk) outweighs the risk of stroke. All patients on anticoagulation medications are counseled on bleeding risks and the warning signs of a stroke or TIA. - Except where mentioned or restricted, the PCP may renew the cardiac medications. - Other listed profile meds will continue as directed by the PCP (primary provider). Thank you for allowing me to participate in this patient's care. Please don't hesitate to call with any questions or concerns. Life Sustaining Treatment Orders /es/ DAVION SKINNER NP CARDIOLOGY/ELECTROPHYSIOLOGY BENEFITS OFFICER Signed: 10/03/2024 14:03 DAVION SKINNER [facility]
--- OUTSIDE RECORDS SUMMARY | 2024-10-04 02:00 | XMS_ITS | Encounter Summary ---
Author Name [facility] Organization [facility] Address [address] [place] [address] Care Team Providers Care Paperhanger Assistant Name Role Phone HELEN MATTHEWS Primary Care [...] PART A Feb 09, 2019 PART A [id number] ANA GANNON EPH PATIENT MEDICARE (WNR) MEDICARE (M) PART B Feb 09, 2019 PART B [id number] ANA GANNON EPH PATIENT MEDICARE (WNR) MEDICARE (M) PART A Feb 09, 2019 PART A [id number] ANA GANNON EPH PATIENT MEDICARE (WNR) MEDICARE (M) PART B Feb 09, 2019 PART B [id number] ANA GANNON PATIENT MEDICARE (WNR) MEDICARE (M) PART B Feb 09, 2019 PART B [id number] ANA GANNON PATIENT MEDICARE (WNR) MEDICARE (M) PART A Feb 09, 2019 PART A [id number] [phone] ANA GANNON PATIENT MEDICARE PART D (WNR) MEDICARE (M) PART D Sep 11, 2019 PART D [id number] [id number] [phone] ANA GANNON PATIENT Selected Encounter This section includes the information on record at [place] for the Encounter. Date/Time Encounter Type Encounter Description Reason Pro vider Source Oct 04, 2024 07:00 AM Outpatient Encounter CARDIAC CATHETERIZATION ICD-10-CM 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 BRANDI WALTER IHE Encounter Template Text not used by [place] Assessments - Encounter Diagnoses This section includes the primary and secondary diagnoses documented for the Encounter. Date/Time Primary/Secondary Diagnosis Diagnosis Name Provider Source Oct 10, 2024 07:53 AM PRIMARY Hyp chr kidney disease w stage 5 chr kidney disease or ESRD BRANDI WALTER [facility] Oct 10, 2024 07:53 AM SECONDARY Atherosclerosis of CABG w/o angina pectoris BRANDI WALTER [facility] Oct 10, 2024 07:53 AM SECONDARY Personal history of other venous thrombosis and embolism BRANDI WALTER [facility] Plan of Treatment: Future Appointments (+ 6 months) and Future Tests (+/- 45 days) The Plan of Treatment section includes future care activities for the patient from [facility] This section includes future appointments and future orders which are active, pending or scheduled. Future Appointments This section includes appointments that were scheduled to occur 6 months from the date of the Encounter, up to a maximum of 20 appointments. The data comes from all [place] treatment facilities. Appointment Date/Time Appointment Type Appointme nt Facility Name Oct 08, 2024 02:20 PM AMBULATORY - MEDICINE [facility] Nov 18, 2024 10:00 AM [facility] Nov 22, 2024 10:00 AM AMBULATORY - MEDICINE [facility] Nov 26, 2024 02:00 PM AMBULATORY - MEDICINE [facility] Dec 12, 2024 09:00 AM AMBULATORY - MEDICINE [facility] Dec 26, 2024 12:45 PM AMBULATORY - MEDICINE [facility] Dec 26, 2024 01:00 PM AMBULATORY - MEDICINE [facility] Dec 27, 2024 09:56 AM AMBULATORY - MEDICINE [facility] Dec 31, 2024 10:00 AM AMBULATORY - MEDICINE [facility] January 30, 2025 10:00 AM AMBULATORY MEDICINE [facility] February 06, 2025 10:00 AM AMBULATORY MEDICINE [facility] Mar 06, 2025 10:00 AM AMBULATORY MEDICINE [facility] Mar 18, 2025 11:00 AM AMBULATORY MEDICINE [facility] Mar 25, 2025 01:00 PM AMBULATORY - MEDICINE [facility] Mar 27, 2025 12:15 PM AMBULATORY - MEDICINE [facility] Mar 27, 2025 12:30 PM AMBULATORY - MEDICINE [facility] Active, Pending, and Scheduled Orders This section includes a listing of several types of active, pending, and scheduled orders, including clinic medications orders, diagnostic test orders, procedure orders and consult orders; where the start date of the order is 45 days before the date of the Encounter or 45 days after the date of theEncounter. The data comes from all [facility] facilities. Test Date/Time Test Type Test Details Facility Name Oct 04, 2024 06:00 AM Laboratory - Blood Bank Order TYPE & SCREEN - LAB BLOOD WC [facility] Lab Results: +/- 30 days of the encounter This section includes the Chemistry and Hematology Lab Results on record with [facility] for the patient. Radiology Reports and Pathology Reports are provided separately, in subsequent sections. Lab Results This section contains the Chemistry/Hematology Results that were resulted 30 days before or 30 daysafter the date of the Encounter. Date/Time Source Result Type Result - Unit Interpretation Reference Range Specimen Type Comment Oct 04, 2024 08:50 AM [facility] GLUCOSE,BLOOD-poct (STL) BLOOD Specimen Type: BLOOD Comment: Test Performed by: [id number] Meter #: [id number] Ordering Provider: GONZALO WALTER Report Released Date/Time: Oct 04, 2024 05:32 PM Reporting Lab: [place] [address] [facility] [address] Performing Lab: [place] [address] [facility] [address] GLUCOSE,BLOOD-poct (STL) 127 mg/dL H 72-99 Oct 04, 2024 08:11 AM [facility] GLUCOSE,BLOOD-poct (STL) BLOOD Specimen Type: BLOOD Comment: Test Performed by: [id number] Meter #: [id number] Ordering Provider: HELEN MATTHEWS Report Released Date/Time: Oct 04, 2024 08:14 AM Reporting Lab: [place] [address] [facility] [address] Performing Lab: [address] [address] GLUCOSE,BLOOD-poct (STL) 107 mg/dL H 72-99 Oct 04, 2024 08:06 AM [facility] POC AVOX PANEL BLOOD Specimen Type: BLOOD Comment: Test Performed by: [id number] Meter #: [id number] Ordering Provider: HELEN MATTHEWS Report Released Date/Time: Oct 04, 2024 08:15 AM Reporting Lab: [place] [address] [facility] [address] Performing Lab: [place] [address] [facility] [address] POC AVOX O2HB 72.9 L 92-100 POC AVOX THB 12.7 g/dL L 13.1-16.8 Oct 04, 2024 08:05 AM [facility] POC AVOX PANEL BLOOD Specimen Type: BLOOD Comment: Test Performed by: [id number] Meter #: [id number] Ordering Provider: HELEN MATTHEWS Report Released Date/Time: Oct 04, 2024 08:14 AM Reporting Lab: [facility] [address] [place] [phone] Performing Lab: [facility] [address] [place] [address] POC AVOX O2HB 73.1 L 92-100 POC AVOX THB 12.8 g/dL L 13.1-16.8 Oct 04, 2024 08:04 AM [facility] POC AVOX PANEL BLOOD Specimen Type: BLOOD Comment: Test Performed by: [id number] Meter #: [id number] Ordering Provider: HELEN MATTHEWS Report Released Date/Time: Oct 04, 2024 08:13 AM Reporting Lab: [address] [address] Performing Lab: [address] [address] POC AVOX O2HB 75.3 L 92-100 POC AVOX THB 12.7 g/dL L 13.1-16.8 Oct 04, 2024 08:03 AM [facility] POC AVOX PANEL BLOOD Specimen Type: BLOOD Comment: Test Performed by: [id number] Meter #: [id number] Ordering Provider: HELEN MATTHEWS Report Released Date/Time: Oct 04, 2024 08:13 AM Reporting Lab: [address] [address] Performing Lab: [address] [address] POC AVOX O2HB 73.4 L 92-100 POC AVOX THB 13.0 g/dL L 13.1-16.8 Oct 04, 2024 07:18 AM [facility] GLUCOSE,BLOOD-poct (STL) BLOOD Specimen Type: BLOOD Comment: Test Performed by: [id number] Meter #: [id number] Ordering Provider: GONZALO WALTER Report Released Date/Time: Oct 04, 2024 05:32 PM Reporting Lab: [address] [address] Performing Lab: [address] [address] GLUCOSE,BLOOD-poct (STL) 69 mg/dL L 72-99 Oct 04, 2024 07:17 AM [facility] PT/INR NEW (STL-MA) PLASMA Specimen Type: PLAS MA No comment entered. Ordering Provider: MENA AGGARWAL Report Released Date/Time: Sep 16, 2024 09:39 AM Reporting Lab: [address] [address] Performing Lab: [address] [address] PROTIME 12.1 s 9.4-12.5 INR VALUE 1.1 {INR} Oct 04, 2024 07:17 AM [facility] BASIC METABOLIC PANEL PLASMA Specimen Type: PL ASMA Comment: No hemolysis noted. Ordering Provider: MENA AGGARWAL Report Released Date/Time: Sep 16, 2024 09:39 AM Reporting Lab: [address] [address] Performing Lab: [address] [address] CREATININE 1.62 mg/dL H 0.7-1.3 UREA NITROGEN 31.2 mg/dL H 9.0-25.0 GLUCOSE 71 mg/dL L 72-99 SODIUM 138 meq/L 136-145 POTASSIUM 4.8 meq/L 3.5-5 CHLORIDE 108 meq/L H 98-107 CARBON DIOXIDE 21 meq/L L 22-31 CALCIUM 9.5 mg/dL 8.4-10.4 EGFR (CKD-EPI 2020) 45.4 >60 Oct 04, 2024 07:17 AM [facility] CBC BLOOD Specimen Type: BLOOD No comment entered. Ordering Provider: MENA AGGARWAL Report Released Date/Time: Sep 16, 2024 09:39 AM Reporting Lab: [address] [address] Performing Lab: [address] [address] WBC 6.7 10*3/uL 3.6-11.2 RBC 4.25 10*6/uL [...] 0.00-0. 20 Sep 19, 2024 09:40 AM [facility] RENAL PANEL PLASMA Specimen Type: PLASM A Comment: No hemolysis noted. Ordering Provider: FRANCISCO DAILY Report Released Date/Time: Sep 01, 2023 11:30 AM Reporting Lab: [place] [id number] [facility] [address] Performing Lab: [address] [address] CREATININE 1.60 mg/dL H 0.7-1.3 UREA NITROGEN 34.6 mg/dL H 9.0-25.0 GLUCOSE 141 mg/dL H 72-99 SODIUM 138 meq/L 136-145 POTASSIUM 4.9 meq/L 3.5-5 CHLORIDE 110 meq/L H 98-107 CARBON DIOXIDE 20 meq/L L 22-31 CALCIUM 9.6 mg/dL 8.4-10.4 PHOSPHOROUS 3.0 mg/dL 2.3-4.7 ALBUMIN 3.9 g/dL 3.4-5 EGFR (CKD-EPI 2020) 46.1 >60 Sep 19, 2024 09:40 AM [facility] URINALYSIS (STL-PB) URINE Specimen Type: URIN E No comment entered. Ordering Provider: FRANCISCO DAILY Report Released Date/Time: Sep 01, 2023 11:30 AM Reporting Lab: [place] [address] Performing Lab: [place] [phone] URINE COLOR Light-Yellow Yellow U.BILIRUBIN Negative mg/dL Negative U.PH 6.0 5.0-8.0 URINE WBC/HPF 1 /[HPF] 0-5 URINE RBC/HPF 1 /[HPF] 0-5 APPEARANCE Clear Clear U.NITRITE Negative mg/dL Negative URN.GLUCOSE 50 mg/dL H Negative URN.PROTEIN Negative mg/dL URN.UROBILINOGEN Normal mg/dL Normal URN.BLOOD Negative mg/dL Negative-Trace URN.KETONES Negative mg/dL Negative-Trac e URN.LEUK.EST. Negative mg/dL Negative-Tr malu URN.SPECIFIC GRAVITY 1.013 Sep 19, 2024 09:[address] [facility] HGA1C BLOOD Specimen Type: BLOOD No comment entered. Ordering Provider: FRANCISCO DAILY Report Released Date/Time: Oct 10, 2023 12:32 PM Reporting Lab: [place] [address] Performing Lab: [address] [address] HGA1C 7.4 H 4.0-6.0 Sep 19, 2024 09:34 AM [facility] TACROLIMUS (STL-PB) BLOOD Specimen Type: BLOO D No comment entered. Ordering Provider: FRANCISCO DAILY Report Released Date/Time: Oct 10, 2023 12:32 PM Reporting Lab: [place] [address] Performing Lab: [place] [phone] TACROLIMUS (STL-PB) 4.4 ng/mL Sep 19, 2024 09:[address] [facility] CBC BLOOD Specimen Type: BLOOD No comment entered. Ordering Provider: FRANCISCO DAILY Report Released Date/Time: Oct 10, 2023 12:32 PM Reporting Lab: [facility] [address] [facility] [address] Performing Lab: [facility] [address] [facility] [address] WBC 6.6 10*3/uL 3.6-11.2 RBC 4.18 10*6/uL [...] 0.00-0. 20 Sep 19, 2024 09:34 AM [facility] PROST. SPECIFIC AG.(PB-STL) SERUM Specimen Ty pe: SERUM Comment: The listed sex of this patient may not be a typical indication for this test. Therefore, reference ranges or interpretive criteria listed may not be valid. Clinical correlation suggested. Ordering Provider: HELEN MATTHEWS Report Released Date/Time: Sep 18, 2024 02:44 PM Reporting Lab: [facility] [address] [facility] [address] Performing Lab: [facility] [address] [facility] [address] PROST. SPECIFIC AG.(PB-STL) 0.418 ng/mL 0-4 Sep 19, 2024 09:[address] [facility] LIPID PANEL (STL) PLASMA Specimen Type: PLASM A No comment entered. Ordering Provider: HELEN MATTHEWS Report Released Date/Time: Sep 18, 2024 02:51 PM Reporting Lab: [facility] [address] [facility] [address] Performing Lab: [facility] [address] [facility] [address] CHOLESTEROL 92 mg/dL 0-200 TRIGLYCERIDE 68 mg/dL 0-150 CALCULATED LDL 35 mg/dL HDL(New) 43 mg/dL >40 Vital Signs: All taken on the encounter date This section contains inpatient and outpatient Vital Signs collected on the date of the Encounter. Date/Time Temperature Pulse Blood Pressure Respiratory Rate SP02 Pain Height Weight Body Mass Index Source Oct 04, 2024 10:00 AM 97.8 72 134/70 18 97 0 [facility] Oct 04, 2024 09:05 AM 66 136/74 97 [facility] Oct 04, 2024 08:34 AM 97.9 63 132/50 18 0 [facility] Oct 04, 2024 08:03 AM 0 71 227 32 [facility] Oct 04, 2024 06:45 AM 97.7 82 174/74 20 96 1 [facility] Social History: Smoking Status (Most current) and Tobacco Use (All prior to encounter date) This section includes the most current, and the historical, smoking and tobacco- related health factors from the [facility] facility where the Encounter took place. Current Smoking Status This section includes the most current smoking, or tobacco-related health factor, from the [facility] facility where the Encounter took place. Date/Time Current Smoking Status Comment Jg ity Apr 12, 2024 02:09 PM VA-TOBACCO NEVER USED [facility] Tobacco Use History This section includes a history of the smoking, or tobacco-related health factors, that were collected on or before the date of the Encounter. The data comes from the [facility] facility where the Encounter took place. Date/Time Smoking Status/Tobacco Use Comment F acility Nov 07, 2022 01:35 PM VA-TOBACCO NEVER USED [facility] Mar 17, 2021 07:44 PM ORYX ADMIT TOBACCO SCREEN NO [facility] Dec 18, 2020 11:14 PM VA-TOBACCO NEVER USED [facility] Dec 18, 2020 08:23 PM ORYX ADMIT TOBACCO SCREEN NO [facility] Nov 14, 2006 01:52 PM LIFETIME NON-USER OF TOBACCO [facility] Nov 22, 2005 02:20 PM LIFETIME NON-TOBACCO USER [facility] Dec 08, 2004 01:37 PM LIFETIME NON-TOBACCO USER [facility] Jul 28, 2004 01:13 PM LIFETIME NON-TOBACCO USER [facility] Jul 09, 2003 01:05 PM LIFETIME NON-TOBACCO USER [facility] Jun 26, 2002 02:05 PM LIFETIME NON-TOBACCO USER [facility] May 23, 2001 01:12 PM LIFETIME NON-TOBACCO USER [facility] Jun 14, 2000 01:24 PM LIFETIME NON-TOBACCO USER [facility] Radiology Reports: +/- 30 days of [...] the Encounter. The data comes from all [facility] facilities. Date/Time Radiology Report Provider Source Sep 10, 2024 08:50 AM CHEST X-RAY, 2 VIE WS: JC GANNON [id number] -1955 M Ex Date: SEP 10, 2024@08:50 Req Phys: THI GAN Loc: [facility]PULMONARY [facility] (Req'g Img Loc: [facility]MAIN RADIOLOGY SUITE Service: [facility], [facility] [address] [place] [address] (Case [id number] COMPLETE) CHEST X-RAY, 2 VIEWS (RAD Detailed) CPT:85956 Reason for Study: V/Q scan Clinical History: with V/Q scan fro comparison Report Status: Verified Date Reported: SEP 10, 2024 Date Verified: SEP 10, 2024 Family Services Manager E-Sig:/ES/CHIARA ALFORD Report: EXAMINATION: CHEST X-RAY, [...] Primary Interpreting Staff: CHIARA ALFORD, Staff Physician (Family Services Manager) /CHIARA SOARES [facility] Sep 10, 2024 08:49 AM NM LUNG V/Q -P: JC GANNON Pritesh [id number] -1955 M Exm Date: SEP 10, 2024@08:49 Req Phys: THI GAN Loc: [facility] (Req'g Img Loc: [facility]NUCLEAR MEDICINE Service: Unknown [address] [address] (Case [id number] COMPLETE) PULMONARY VENTILATION AND PERFUSI(NM Detailed) CPT:89981 Reason for Study: oulmonary emboli (Case [id number] [...] 10, 2024 Date Verified: SEP 10, 2024 Family Services Manager E-Sig:/ES/Aleah Gaming MD,PhD Report: CASE #: [id number], [id number], [id number], [id number]. Examination: Ventilation/perfusion lung scan REFERRING PHYSICIAN: Dr. [...] Staff: Aleah Gaming MD,PhD, Nuclear Medicine Physician (Family Services Manager) /ALEAH GILBERT [facility] Encounter Notes: All associated encounter notes This section contains the clinical notes associated to the Encounter. Date/Time Encounter Note(s) Provider Source Oct 04, 2024 09:53 AM CARDIOLOGY PROCEDU RE NOTE: LOCAL TITLE: CARDIOLOGY-CART CATH/PROCEDURE NOTE STL STANDARD TITLE: CARDIOLOGY PROCEDURE NOTE DATE OF NOTE: OCT 04, 2024@09:53 ENTRY DATE: OCT 04, 2024@09:53:41 AUTHOR: KRISTAL ANGUIANO COSIGNER: GONZALO WALTER URGENCY: STATUS: COMPLETED [facility] CART Program for Clinical Assessment, Reporting, and Tracking CARDIOVASCULAR DIAGNOSTIC AND THERAPEUTIC PROCEDURE REPORT Patient: JC GANNON SSN: [id number] : 1955 AGE: 69 Procedure Date: 10/04/2024 Procedure Status: Elective outpatient procedure Attending: GONZALO WALTER Assisting: KRISTAL ANGUIANO PROCEDURE INDICATIONS Primary Indication: Pulmonary Hypertension Other Indications: Pulmonary Hypertension PROCEDURES PERFORMED Diagnostic Procedures: Right Heart Catheterization Other Procedures: Ultrasound guidance for vascular access Moderate sedation TIME-OUT A time-out was performed addressing all safety requirements relevant to the procedure. Type of procedure, site, and patient ID were verified with the patient. The attending has assessed or re-assessed the patient and there are no changes to the pre-procedure assessment. ACCESS Venous: Ultrasound guided Right Brachial access (7F), Hemostasis with manual compression CATHETERS ALL PROCEDURES Heart rate (Bpm): 63 Aorta (mmHg): 137/ 64, mean 88 RIGHT HEART CATHETERIZATION Pressures (mmHg) RA mean: 17 RV: 45/ 17 PA: 45/ 24, mean 31 PCWP: 19 Mean BP: 88 Heart Rate: 63 bpm Hemoglobin: 13 Cardiac Output (Q): Q(Lesly): 8.6 L/min Cardiac Index (CI): BSA = 2.24 m^2 CI(Lesly): 3.84 L/min/m^2 Stroke Volume (SV) and Index (SVI): BSA = 2.24 m^2 SV(Lesly): 136.5 ml SVI: 60.9 ml/m^2 Vascular Resistance: Pulmonary vascular resistance: 1.4 Wood units Systemic vascular resistance: 660 griyz-pgl-uc^-5 Oxygen Saturations: Arterial saturation: 93% Mixed venous saturation: 73% PROCEDURE DETAILS AND FINDINGS Technical Details: 1. After informed consent and time out, patient was prepped and draped in the usual sterile fashion. 2. Using ultrasound guidance, the right brachial vein was accessed via micropuncture needle and modified Seldinger technique. A 7 Fr sheath was advanced into place. 3. The PA catheter was advanced and different chamber pressures were measured. 4. Following diagnostic procedures, the sheath was removed Procedure Findings: -Mild, post-capillary pulmonary hypertension with mean PA: 31 mmHg and PCWP: 19mmHg -Elevated right and left filling pressures IN-LAB MEDICATIONS Fentanyl 50mcg IV Midazolam 1mg IV Summary Data: Total Contrast: 0 mL Total Fluoroscopy Time: 5.5 min Radiation DAP: 7.45 mGy-cm2 Air Kerma: 88.18 mGy Total Fluids: 42 mL Estimated Blood Loss: 5 mL Specimen removed: No PERIPROCEDURAL COMPLICATIONS No Major Adverse Events or Complications The attending was present throughout the procedure. PROCEDURE SUMMARY -Mild, post-capillary pulmonary hypertension with mean PA: 31 mmHg and PCWP: 19mmHg -Elevated right and left filling pressures RECOMMENDATIONS Continue medical management Continue outpatient follow up with cardiology PROCEDURE CODING Coding Procedure Per_Coder Right Heart Catheterization 22722 Ultrasound guidance for vascular access N/A Moderate sedation [id number] [facility]-CV:[id number] 10/04/2024 /charly/ Kristal Anguiano MD Sales Representative Door To Door Signed: 10/04/2024 09:53 /es/ GONZALO WALTER MD STAFF PHYSICIAN Cosigned: 10/10/2024 01:09 KRISTAL ANGUIANO [facility] Oct 04, 2024 08:42 AM PHYSICIAN EDUCATIO N DISCHARGE NOTE: LOCAL TITLE: DISCHARGE INSTRUCTIONS [facility] STANDARD TITLE: PHYSICIAN EDUCATION DISCHARGE NOTE DATE OF NOTE: OCT 04, 2024@08:42 ENTRY DATE: OCT 04, 2024@08:42:17 AUTHOR: KRISTAL ANGUIANO EXP COSIGNER: GONZALO WALTER URGENCY: STATUS: COMPLETED 1. DIAGNOSES: Post Cardiac Catheterization Mr. Gannon, Your right heart catheterization showed mild pulmonary hypertension, most likely caused from the heart. You can continue the rest of your medications as prior. 2. FUTURE APPOINTMENT(S): *To reschedule [facility] appointments call and use extension below. date/time clinic phone number 10/08/24 2:20 pm [facility]RENAL [facility]AVA 10/31/24 9:00 am [facility]-ST CLR BH PC IND PSO [phone] 11/18/24 10:00 am [facility]LYMPHEDEMA 11/22/24 10:00 am [facility]PULMONARY [facility] 12/12/24 9:00 am [facility]-ENDOCRINOLOGY [place] [phone] 02/20/25 10:00 am [facility]-CARDIOLOGY EP RESIDENTIAL ENERGY AUDITOR 03/18/25 11:00 am [facility]-ST CLR PACT 2 PCP [phone] 08/20/25 9:15 am [facility]ONCOLOGY BRANDI [phone] 09/26/25 10:00 am [facility] [phone] *This listing may be incomplete. Please refer to Appointment Mgmt.listing for any additional patient appointments 3. DISCHARGE MEDICATIONS: Post Cardiac Catheterization Resume the same medications you were taking before the catheterization unless otherise ordered by your physician. As it is important to avoid straining for bowel movements for 7 days, if you tend to be constipated and/or regularly strain to pass stool, please inform your nurse so that a stool softening medication can be ordered. TO HELP YOU UNDERSTAND YOUR DRUG LIST ACTIVE ...means that you are presently taking these meds. SUSPENDED means that your prescription is active and in the mail order process. PENDING ..means that the medication has just been renewed, or, just ordered. HOLD .....means that the medication is active on your list, but will not be processed until pharmacy receives further instructions from you or your doctor to proceed with filling the prescription for delivery. NON-VA ...means you are getting the medication from somewhere besides the [facility]. Active Outpatient Medications (including Supplies): Active Outpatient [...] (FOR PROSTATE) Indication: FOR BENIGN PROSTATIC HYPERPLASIA NEW MEDICATIONS (and indicatons): None The following changes were made to the medications you were taking prior to this hospitalization: None These medications have been stopped during your hospitalization (and reason why): None At your next appointment, please remember to bring all of your medication bottles with you Medication Reconciliation: I have discussed active and pending medications with the patient and/or body care manager. I have made changes as appropriate............... ..YES 4. DISCHARGE INTRUCTIONAL MATERIALS *To be printed by Nurse and provided to patient 5. WOUND MANAGEMENT: 6. DISCHARGE DIETARY INSTRUCTIONS: Low Salt *Weight control and lowering salt and sodium intake are the most effective dietary changes to make to control blood pressure. If you are overweight, even a 10 to 15 lb. weight loss can help. *Your sodium intake is more than the salt shaker and other seasonings that contain salt. *Season foods with herbs and salt free seasonings such as onion and garlic powders, pepper, and salt free spice blends. *Cut back on processed foods like lunch meat, sausage, cheese, canned meats and soups. *Eat more fresh or cooked vegetables and fresh or canned fruits. Use less canned vegetables. *Eat less snack foods and crackers with salted tops. If you have questions, contact the dietitians at [phone]. 7. DISCHARGE PHYSICAL ACTIVITY INSTRUCTIONS: Activity as tolerated 8. OTHER (Include employment status): 9. WORSENING and/or DANGEROUS SYMPTOMS TO REPORT (Phys. entry required): Specialist Information: Follow-up with your Primary Care Physician or Specialist or call [facility] Helpline: [phone] NOTE: If you are having feelings of Depression or Emotional Distress, or feel you just need to talk with someone, please call PRESS 1. Copy Provided to Patient, Discussed with family/spouse, Copy sent with Patient to Other facility /charly/ Kristal Anguiano MD Sales Representative Door To Door Signed: 10/04/2024 08:43 /charly/ GONZALO WALTER MD STAFF PHYSICIAN Cosigned: 10/07/2024 01:14 KRISTAL ANGUIANO [facility] Oct 04, 2024 08:32 AM CARDIOLOGY PROCEDU RE NOTE: LOCAL TITLE: CARDIAC CATHETERIZATION BRIEF PROCEDURE STL STANDARD TITLE: CARDIOLOGY PROCEDURE NOTE DATE OF NOTE: OCT 04, 2024@08:32 ENTRY DATE: OCT 04, 2024@08:32:16 AUTHOR: KRISTAL ANGUIANO EXP COSIGNER: GONZALO WALTER URGENCY: STATUS: COMPLETED PROCEDURE SUMMARY Date of procedure(s): Sep Pre-procedure diagnosis: Pulmonary hypertension Post-procedure diagnosis: mild pulmonary hypertension mean PA 31mmHg, Group II PROCEDURE(S) PERFORMED Right Heart Catheterization PHYSICIAN(S) PERFORMING THE PROCEDURE(S) Select Physician(s) performing the procedure(s): Other: Dr. Walter ANCILLARY STAFF Anesthesia administered: Type of anesthesia: moderate Specimen removed: None FINDINGS Right Heart Catheterization Findings: see above Complications: None Estimated blood loss: 5ml Post procedure condition: stable Discharge/Transfer to: 4N/home The Attending Physician was present throughout the procedure. This is a preliminary note. Final CART-CL report will follow. Patient cannot drive for 24-48 hours, depending on access site. These instructions were provided to the patient. /kaylyn Anguiano MD Sales Representative Door To Door Signed: 10/04/2024 08:35 /kaylyn WALTER MD STAFF PHYSICIAN Cosigned: 10/10/2024 01:10 KRISTAL ANGUIANO [facility] Oct 04, 2024 08:31 AM CARDIOLOGY NURSING PREPROCEDURE NOTE: LOCAL TITLE: DENTAL MECHANIC PROCEDURE STL STANDARD TITLE: CARDIOLOGY NURSING PREPROCEDURE NOTE DATE OF NOTE: OCT 04, 2024@08:31 ENTRY DATE: OCT 04, 2024@08:31:43 AUTHOR: JC ADDISON COSIGNER: GONZALO WALTER URGENCY: STATUS: COMPLETED Case Report Patient Information Patient Name: JC GANNON Date of : 1955 Age: 69 years Financial #: Gender: M Accession #: Hospital Room #: Height (in): 72.0 Height (cm): 182.9 BSA: 2.24 Weight (lbs): 224.4 Weight (kg): 102.0 AlternateID: Lab Number: 5 Address Type [facility] State Zip Code Residential Patient Address/Phone Number Patient Phone Study Information Scheduled Start Study Start 10/04/2024 10/04/2024 7:31 Facility Department [facility] - Informatics Nurse Specialist Physician and Clinical Staff Initial MD: Gonzalo Walter Fellow: Kristal Anguiano Bacteriology Research Assistant: Selina Mcnulty Holding Area: Jc Addison Holding Area: Moo Bond Holding Area: Selina Mcnulty Holding Area: Fidel Mcnulty Medication Nurse: Moo Bond Recorder: Jc Addison Scrub: Fidel Mcnulty 10/04/2024 8:29:27 Financial #: 1 of 7 Patient Name: JC GANNON Date of : 1955 Study #: Initial MD: Gonzalo Walter Study Date: 10/04/2024 Time Label Remover Description Size Mfg Part Number Used/Scraped 7:37 Avid Medical Cath Pack-Intervention [id number] Used 8:05 Poshly Calliham Fixed Core J Wire .025 x 260cm [id number] Used 7:38 DeRoyal Calliham DeRoyal 7F DTD [id number] Used 7:37 Hovertech Int Hovermatt [id number] Used 7:37 Medline Drape Brachial [id number] Used 7:38 Terumo Terumo Glidesheath SLENDER 7F x 10cm RM*[id number] Used Equipment Labs Hgb (12.00-18.00) 12 gm/dl Hct (37.00-55.00) 37 % Plat (140.00-450.00) 154 thousands Creat (0.10-9.00) 1.6 mg/dl K (3.80-5.10) 4.9 meq/l PT (10.80-13.80) 12 sec INR (0.50-2.00) 1.1 PTT:PT 10/04/2024 8:29:27 Financial #: 2 of 7 Patient Name: JC GANNON Date of : 1955 Study #: Initial MD: Gonzalo Walter Study Date: 10/04/2024 Vitals Summary Time HR NIBP SpO2 Resp Temp EtCO2 Apnea Chelsea Pain Level Pike Comment 7:33:27 63 162/71 96.0 16 0 2 7:37:37 63 170/76 96.0 21 0 2 7:41:59 63 159/67 96.0 10 0 2 7:46:58 60 149/64 89.0 13 0 2 7:51:57 60 134/58 90.0 11 0 2 7:56:54 60 139/56 93.0 14 0 2 8:01:55 60 137/64 93.0 15 0 2 8:06:58 60 138/56 91.0 13 0 2 8:11:57 60 137/57 93.0 14 0 2 8:16:58 61 134/60 94.0 0 2 8:21:57 61 145/60 94.0 12 0 2 Time Study Chronological Log 7:25:33 ASA SCORE=Class 3. 7:25:34 Mallampati Airway Assesment=Class 3. 7:25:35 Patient arrived to [facility] area. 7:26:08 Patient referred from [facility] 7:26:14 Pre EKG completed prior to arrival. 7:26:15 Assessment: HR=63 BPM, Rhythm=a paced, SNAG=622/64 mmhg, Chest Pain=0, Edema=Mild, Color=Normal, Skin = Warm, Dry Right Pulses: Long Ped=2, Post Tib=1 Left Pulses: Long Ped=2, Post Tib=1 Lower Right Extremities: Color=Normal Lower Left Extremities: Color=Normal Neurological: State=Alert, Ox3, YI Respiration: Resp=12 B/min, KuB5=077 % 7:26:16 Patient status:Outpatient-from 7:26:21 Pre cath education completed. Meds & equipt. explained, questions answered. Plan of care discussed. Pt verbalizes understanding 7:26:22 Informed consent obtained on IMED in CPRS by physician. 7::26 Patient has been NPO since: 10/03 7:26:35 Pt arrived from [facility] with labs drawn and working IV noted. 7:26:42 Site prepped with surgical clippers in the holding area Chronological Log 10/04/2024 8:29:27 Financial #: 3 of 7 Patient Name: JC GANNON Date of : 1955 Study #: Initial MD: Gonzalo Walter Study Date: 10/04/2024 7:26:45 A 20 gauge IV was noted in the Forearm (left). 7:27:10 Last Patient's Log Entered Into CPRS. 7:27:11 Prep complete. Patient ready for cardiac cath. 7:28:52 Pt transfer to Informatics Nurse Specialist Room 7:31:09 Patient Arrival Time (Pt. in proc room) 7:31:12 Vitals capture started with the following parameters, Patient=Adult, Interval=5 min, Initial Kvlzdlkj=117 mmHg, Deflation Rate=5 mmHg 7:31:19 Reference ECG taken 7:33:27 HR=63 bpm, ZEJH=889/71 mmhg, SpO2=96.0 %, Resp=16 B/min, Pain=0, Pike= 2 7:33:38 IV SOLUTIONS given in lab by Jc Addison via Peripheral IV. Pump/Drip Flow = 30 ml/hr using NaCl .9. Ordered by Gonzalo Walter. Reason: Verbal order, read back and confirmed. 7:33:[address] but not on 7:34:12 Fire Risk Assessment performed. 7:34:14 Ignition source (cautery,laser,fiberoptic light)-1=Y, 0=N =0 7:34:15 Open Oxygen source-1=Y, 0=N =0 7:34:17 Procedure site above Xiphoid-1=Y, 0=N =0 7:34:18 Total Score(1-2=routine protocol; 3=high risk fire protocol)=0 7:34:19 Mobile roberts in use 7:34:20 Permanent dose record reviewed 7:34:21 Staff at procedure table wearing Leaded glasses 7:34:21 Staff wearing internal and external film badges 7:34:22 Staff wearing lead aprons and collars 7:34:22 X-ray Image detector height reviewed 7:34:23 Warning level at 300,000 mGy/cm2 D.A.P. or 2,000 mGy A.K. 7:34:23 X-ray protocol selected 7:34:25 All staff to report radiation concerns in real time 7:34:26 Procedure site has been marked appropriately and the garima is visible after prep and drape. 7:34:27 Valid consent form, containing information consistent with paragraph 5.f.(1)a via A Directive 1039(3) 7:34:28 Patient position: supine 7:34:29 Procedure: RHC 7:34:33 Patient ID correct 7:34:35 Site: Right B/C 7:34:47 Patient prepped and draped in sterile fashion. 7:34:48 Patient identified by Name, Birthdate and SS#. 7:34:48 Pertinent Medical images have been confirmed-N/A. 7:34:49 Correct medical implant available. 7:34:49 Appropriate antibiotic prophylaxis-N/A. 10/04/2024 8:29:27 Financial #: 4 of 7 Patient Name: JC GANNON Date of : 1955 Study #: Initial MD: Gonzalo Walter Study Date: 10/04/2024 7:34:50 Blood availability-N/A. 7:34:51 Special equipment available-N/A. 7:37:37 HR=63 bpm, QNDR=781/76 mmhg, SpO2=96.0 %, Resp=21 B/min, Pain=0, Pike= 2 7:39:26 Pressure channel 1 zeroed. 7:41:57 Attending MD present 7:41:58 Time out including patient, procedure & site verification took place with staff, physician and patient prior to start of case. 7:41:59 HR=63 bpm, OMEA=641/67 mmhg, SpO2=96.0 %, Resp=10 B/min, Pain=0, Pike= 2 7:42:40 Time out performed by:Gonzalo Walter, Selina Mcnulty RN, Deepthi Mcnulty, Everyone in agreement to proceed with procedure. 7:42:54 Time out performed by:Kristal Anguiano, Moo Bond RN, Jc Addison RN, Everyone in agreement to proceed with procedure. 7:43:12 1 mg VERSED given in lab by Selina Mcnulty via Peripheral IV. Ordered by Gonzalo Walter. Reason: Verbal order, read back and confirmed. 7:43:22 50 mcg FENTANYL given in lab by Selina Mcnulty via Peripheral IV. Ordered by Gonzalo Walter. Reason: Verbal order, read back and confirmed. 7:46:58 HR=60 bpm, DYLK=896/64 mmhg, SpO2=89.0 %, Resp=13 B/min, Pain=0, Pike= 2 7:51:57 HR=60 bpm, UJCJ=106/58 mmhg, SpO2=90.0 %, Resp=11 B/min, Pain=0, Pike= 2 7:56:54 HR=60 bpm, OOYS=228/56 mmhg, SpO2=93.0 %, Resp=14 B/min, Pain=0, Pike= 2 7:57:29 Case Start 7:57:31 5 mL LIDOCAINE 2% given in lab by Gonzalo Walter in Right Antecubital via Subcutaneous. Ordered by Gonzalo Walter. Reason: Verbal order, read back and confirmed. 7:57:46 A Terumo Glidesheath SLENDER 7F x 10cm was inserted into the Brach. Vein (right) and advanced. 7:59:02 A Calliham DeRoyal 7F was inserted. w/ assistance of swan wire 8:01:55 HR=60 bpm, FSIH=611/64 mmhg, SpO2=93.0 %, Resp=15 B/min, Pain=0, Pike= 2 8:05:56 Saturation: Site=PA (Pulmonary Artery) , O2=73.1 %, Hgb=12.8 gm/dl, Condition=Condition 1. Used in calculation. 8:06:12 Saturation: Site=Ao (Aorta) , O2=93 %, Condition=Condition 1. Used in calculation. 8:06:58 HR=60 bpm, FBPY=381/56 mmhg, SpO2=91.0 %, Resp=13 B/min, Pain=0, Pike= 2 8:07:54 Pressure channel 1 zeroed. 8:09:15 Saturation: Site=PA (Pulmonary Artery) , O2=72.9 %, Hgb=12.7 gm/dl, Condition=Condition 1. Used in calculation. 8:10:10 Recorded Pressure: PA, HR=60, Condition=Condition 1 (Pulmonary Artery) PA 8:11:54 Recorded Pressure: PCW, HR=60, Condition=Condition 1 (Pulmonary Capillary Wedge) PCW 8:11:57 HR=60 bpm, XLGY=761/57 mmhg, SpO2=93.0 %, Resp=14 B/min, Pain=0, Pike= 2 8:13:27 Recorded Pressure: RV, HR=60, Condition=Condition 1 (Right Ventricle) RV 8:14:45 Recorded Pressure: RA, HR=60, Condition=Condition 1 (Right Atrium) RA 8:16:58 HR=61 bpm, QQQA=262/60 mmhg, SpO2=94.0 %, Pain=0, Pike=2 8:17:38 Procedure Finish Time (Cath disengaged) 8:17:46 Manual Sheath Removal 10/04/2024 8:29:27 Financial #: 5 of 7 Patient Name: JC GANNON Date of : 1955 Study #: Initial MD: Gonzalo Walter Study Date: 10/04/2024 Saturation Location Saturation (%) Hgb Value (gm/dl) Used in calculation Time Documented Ao 93.0 Yes 8:06:12 PA 73.1 12.8 Yes 8:05:56 PA 72.9 12.7 Yes 8:09:15 Oxygen Saturation Samples Oxygen Saturation Group Summary Saturation Group Avg Sat (%) Used Hgb (gm/dl) Avg Content Total Samples Total Samples Used Hgb from: AO 93.0 12.0 151.8 1 1 Lab PA 73.0 12.0 119.1 2 2 Lab Normal Oxygen Saturation Range: RA, RV, PA, IVC, SVC = 65% - 80% AO, LA, PV, PCW, LV = 95% - 100% Peripheral Arterial = 94% - 97% Oxygen Saturations: Condition 1 8:17:50 Assessment: Final Case, HR=60 BPM, Rhythm=paced, GKNZ=675/60 mmhg, Chest Pain=0, Edema=Mild, Color=Normal, Skin = Warm, Dry Neurological: State=Alert, Ox3, YI Respiration: Resp=10 B/min, SpO2=96 % 8:18:18 Post cath orders in CPRS 8:18:22 Post-cath education completed. D/C instructions reviewed & given to pt, questions answered. Pt verbalizes understanding. 8:18:38 Report given to 4N RNJohanna 8:19:12 Cath Diagnostic 8:19:17 A Right Heart Cath was performed. 8:19:38 Patient scheduled for same day discharge 8:20:44 This Patient's Log Entered Into CPRS. 8:20:45 Contrast Total =0 8:20:52 Fluoro Time(min) =5.5 8:20:57 DAP(Gy)=7.45 8:21:02 A.K.(mGy)=88 8:21:06 Case completion less than 4,000 mGy A.K. 8:21:06 Permanent dose record reviewed 8:21:07 Procedure results discussed with Patient and Family by [place] 8:21:10 Family Status-In Waiting Area-MD Aware 8:21:57 HR=61 bpm, BGEF=424/60 mmhg, SpO2=94.0 %, Resp=12 B/min, Pain=0, Pike= 2 8:22:33 A Right Heart Cath was performed. 8:24:23 [facility] 8:24:25 Patient Transfer Time (Pt. leaves proc. rm.) 10/04/2024 8:29:27 Financial #: 6 of 7 Patient Name: JC GANNON Date of : 1955 Study #: Initial MD: Gonzalo Walter Study Date: 10/04/2024 Cardiac Ouput Heart Rate CO (L/min) CI (L/min)/m2) SWI (gm*m)/m2) SV (ml) SVI (ml/m2) Lesly 62 8.6 3.8 138.4 61.8 * = Manually Altered Lesly Cardiac output = O2 Consumption/(AOsat (%) x Hgb x 1.36 x 10) - (MVsat (%) x Hgb x 1.36 x 10). Oxygen Values/Cardiac Output/Resistances: Condition 1 Oxygen Values O2 Consumption O2 Capacity 280 + 163.2 * = Manually Altered + = O2 Consumption is calculated using the formula 125 x BSA and should be considered a rough estimate. Contrast Total Opened (mL) Total Used (mL) Total Wasted (mL) Visipaque 0 0 0 End Study - Contrast Media Used In Study Fluoro Time (minutes) Air Kerma (mGy) Dose Area Prod (Gy/cm2) 5.5 88 7 End Study - Radiation Exposure End Study - Patient Fluids IV Intake (mL) Total Output (mL) 42 End Study - Patient Disposition Complications Transferred To Interventional Outcome No Regular Bed successful Max Contrast Load (mL) 318.8 End Study - Maximum Contrast Load 10/04/2024 8:29:27 Financial #: 7 of 7 Patient Name: JC GANNON Date of : 1955 Study #: Initial MD: Gonzalo Walter Study Date: 10/04/2024 Post Anesthesia Sedation Score - Phase 1 Phase 1 Discharge Criteria TOTAL SCORE=14 Oxygenation 2 Points - SpO2 greater than or equal to 94% or baseline on room air PACU Respiratory Status 2 Points - Normal breathing and deep cough on command Circulatory Status 2 Points - BP/HR less than 20% or 20 mmHg of baseline Level of Consciousness 2 Points - Fully awake or easily awakened Pain 2 Points - Minimal or none - Pain Score 0-4 or at tolerable level or at baseline Nausea/Vomiting 2 Points - Minimal or none Level of Activity 2 Points - Able to move all extremities voluntarily or on command or moves all extremities with the exception of extremity treated with peripheral nerve block or patient baseline [facility] Phase 1 time documented Time: 826 /charly/ JC WYNNE RN REGISTERED NURSE Signed: 10/04/2024 08:32 /charly/ GONZALO WALTER MD STAFF PHYSICIAN Cosigned: 10/10/2024 01:13 JC ADDISON [facility] Oct 04, 2024 07:27 AM CARDIOLOGY DIAGNOS TIC STUDY REPORT: LOCAL TITLE: CP CARDIAC CATH REPORT STANDARD TITLE: CARDIOLOGY DIAGNOSTIC STUDY REPORT DATE OF NOTE: OCT 04, 2024@07:27:24 ENTRY DATE: OCT 04, 2024@07:27:24 AUTHOR: CLINICAL,DEVICE PRO EXP COSIGNER: URGENCY: STATUS: COMPLETED PROCEDURE SUMMARY CODE: Machine Resulted DATE/TIME PERFORMED: OCT 04, 2024@07:00 DOCUMENT IN [facility] SEE FULL REPORT IN [facility] Administrative Closure: 10/04/2024 by: CLINICAL,DEVICE PROXY SERVICE CLINICAL,DEVICE PROXY SERVICE [facility] Oct 04, 2024 07:26 AM INTERVENTIONAL CAR DIOLOGY PRE OPERATIVE NOTE: LOCAL TITLE: CARDIOLOGY-CART PRE-CATH ASSESSMENT STANDARD TITLE: INTERVENTIONAL CARDIOLOGY PRE OPERATIVE NOTE DATE OF NOTE: OCT 04, 2024@07:26 ENTRY DATE: OCT 04, 2024@07:26:40 AUTHOR: KRISTAL ANGUIANO EXP COSIGNER: GONZALO WALTER URGENCY: STATUS: COMPLETED [facility] for Clinical Assessment, Reporting, and Tracking CARDIOVASCULAR PRE-PROCEDURE ASSESSMENT REPORT Patient: JC GANNON SSN: [id number] : 1955 AGE: 69 Assessment for elective CARDIOVASCULAR procedure Assessed by: KRISTAL ANGUIANO Date: 10/04/2024 PRESENTATION 69-year-old male with a pertinent medical history of 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, status post kidney transplant March 2012, lymphedema to right lower leg, HLD, history of DVT is coming in for a right heart cath tomorrow for evaluation of pulmonary hypertension per most recent echo, PASP 55mmHg Additional Indications: Pulmonary Hypertension CARDIAC RISK FACTORS Diabetes Hypertension COMORBID CONDITIONS Sleep Apnea No Congestive Heart Failure REVIEW OF SYSTEMS PHYSICAL EXAM Vital Value Unit Date/Time BP 144/ 70 mmHG 2024-10-03 09:24 HR 68 bpm 2024-10-03 09:24 Height 72 inches 2024-08-30 08:51 Weight 223.9 lbs 2024-10-03 09:24 BSA 2.1 m^2 2024-10-03 09:24 Neck: No carotid bruits Lungs: No rales present Cardiac: No extra heart sound present No murmur Extremities: No femoral bruits LABS Lab Value Date/Time Alert BNP 102.7 2023-02-03 08:11 high Creatinine 1.60 2024-09-19 09:40 high eGFR 46.1 2024-09-19 09:40 Albumin 3.9 2024-09-19 09:40 Bilirubin 0.5 2024-08-20 08:21 Potassium 4.9 2024-09-19 09:40 Sodium 138 2024-09-19 09:40 Hematocrit 37.1 2024-09-19 09:34 low Hemoglobin 12.8 2024-09-19 09:34 low Hemoglobin A1C 7.4 2024-09-19 09:34 high Platelets 154 2024-09-19 09:34 INR 1.5 2023-05-05 08:35 WBC 6.6 2024-09-19 09:34 Cholesterol total 116 2022-09-27 08:25 LDL (calculated) 46 2022-09-27 08:25 HDL Cholesterol 44 2022-09-27 08:25 Triglycerides 129 2022-09-27 08:25 OUTPATIENT MEDICATIONS AMLODIPINE BESYLATE 10MG TAB Qty: 90 for 90 days expires: 09/21/2025; last filled: 09/21/2024; active Sig: TAKE ONE TABLET BY MOUTH ONCE A DAY FOR HIGH BLOOD PRESSURE Indication: FOR HIGH BLOOD PRESSURE APIXABAN 5MG TAB Qty: 180 for 90 days expires: 08/22/2025; last filled: 08/21/2024; active Sig: TAKE ONE TABLET BY MOUTH TWICE A DAY FOR ANTICOAGULATION ATORVASTATIN CALCIUM 20MG TAB Qty: 45 for 90 days expires: 08/02/2025; last filled: 08/01/2024; active Sig: TAKE ONE-HALF TABLET BY MOUTH EVERY EVENING FOR HIGH CHOLESTEROL REPLACES SIMVASTATIN SODIUM BICARBONATE 650MG TAB Qty: 360 for 90 days expires: 07/13/2025; last filled: 07/13/2024; active Sig: TAKE TWO TABLETS BY MOUTH TWICE A DAY TACROLIMUS 1MG CAP Qty: 270 for 90 days expires: 07/06/2025; last filled: 07/24/2024; active Sig: TAKE TWO CAPSULES BY MOUTH EVERY MORNING AND TAKE ONE CAPSULE EVERY EVENING TO PREVENT TRANSPLANT REJECTION RESERVOIR,MINIMED #[id number] Qty: 10 for 30 days expires: 06/15/2025; last filled: 06/14/2024; active Sig: USE 1 RESERVOIR EVERY THREE (3) DAYS FOR DIABETES WITH INSULIN PUMP Indication: FOR DIABETES SET,INFUSION MINIMED #[id number] Qty: 10 for 30 days expires: 06/15/2025; last filled: 06/14/2024; active Sig: USE 1 SET FOR UNDER THE SKIN EVERY THREE (3) DAYS FOR INFUSION SET TO BE USED WITH INSULIN PUMP. GLUCOSE 4GM CHEW TAB Qty: 50 for 30 days expires: 06/14/2025; last filled: 06/14/2024; active Sig: CHEW AND SWALLOW FOUR TABLETS BY MOUTH NEEDED FOR LOW BLOOD SUGAR REPEAT DOSE IF HYPOGLYCEMIA CONTINUES 15 MINUTES AFTER THE FIRST DOSE. PREDNISONE 5MG TAB Qty: 90 for 90 days expires: 05/11/2025; last filled: 08/01/2024; active Sig: TAKE ONE TABLET BY MOUTH EVERY MORNING WITH FOOD *BUMETANIDE 1MG TAB Qty: 45 for 90 days expires: 04/19/2025; last filled: 08/19/2024; active Sig: TAKE ONE TABLET BY MOUTH EVERY OTHER DAY FOR FLUID RETENTION (EDEMA) REPLACES FUROSEMIDE COLESTIPOL HCL 1GM TAB Qty: 180 for 90 days expires: 04/02/2025; last filled: 08/19/2024; active Sig: TAKE ONE TABLET BY MOUTH EVERY MORNING AND EVENING (OTHER MEDICATIONS SHOULD BE TAKEN 1 HOUR BEFORE OR 4 HOURS AFTER COLESTIPOL) TAMSULOSIN HCL 0.4MG CAP Qty: 180 for 90 days expires: 03/13/2025; last filled: 09/27/2024; active Sig: TAKE TWO CAPSULES BY MOUTH EVERY EVENING APPROXIMATELY 30 MINUTES AFTER THE SAME MEAL EACH DAY (FOR PROSTATE) GLUCOSE SENSOR (4) GUARDIAN [id number] Qty: 5 for 35 days expires: 02/07/2025; last filled: 08/19/2024; active Sig: USE 1 SENSOR UNDER THE SKIN EVERY WEEK FOR BLOOD SUGAR MONITORING Indication: FOR BLOOD SUGAR MONITORING FERROUS SULFATE 325MG TAB Qty: 100 for 90 days expires: 10/11/2024; last filled: 05/05/2024; active Sig: TAKE ONE TABLET BY MOUTH ONCE A DAY FOR IRON SUPPLEMENTATION. LISINOPRIL 40MG TAB Qty: 90 for 90 days expires: 10/11/2024; last filled: 07/09/2024; active Sig: TAKE ONE TABLET BY MOUTH ONCE A DAY FOR HEART OR BLOOD PRESSURE METOPROLOL TARTRATE 100MG TAB Qty: 180 for 90 days expires: 10/11/2024; last filled: 07/24/2024; active Sig: TAKE ONE TABLET BY MOUTH TWICE A DAY FOR HEART/BLOOD PRESSURE. TAKE WITH OR IMMEDIATELY FOLLOWING FOOD. NEW DOSE OMEPRAZOLE 40MG EC CAP Qty: 90 for 90 days expires: 05/11/2025; last filled: 11/15/2024; active/susp Sig: TAKE ONE CAPSULE BY MOUTH EVERY MORNING BEFORE A MEAL TO LOWER STOMACH ACID. TAKE 30 MINUTES PRIOR TO FOOD. MEDICATION REVIEW AND RECONCILIATION Medications (prescriptions and over the counter) reviewed with the patient and reconciled in the medical record. ALLERGIES/ADVERSE REACTIONS Morphine NON-INVASIVE STUDIES AND TESTS LV Function (2019) EF=55% SEDATION/CONSENT CodeStatus: Full Code Anesthesia: consult not needed Sedation by Cardiology Planned sedation level: Moderate Mallampati Class 3: only soft palate visible Physical status assessment (ASA class): 3 - Patient with severe systemic disease with functional limitation that is not life threatening NPO for procedure was explained to patient/surrogate. The risks, benefits, and alternatives of the procedure and sedation/analgesia were explained to and discussed with the patient/surrogate in detail. All questions have been answered and the patient/surrogate understands the potential risks and benefits and consents to the procedure and the plan for sedation. PROCEDURE PLAN Planned Diagnostic Procedures: Right Heart Catheterization Planned Other Procedures: Ultrasound guidance for vascular access Moderate sedation SUMMARY 657 [facility][id number] 10/04/2024 /charly/ Kristal Anguiano MD Sales Representative Door To Door Signed: 10/04/2024 07:26 /charly/ GONZALO WALTER MD STAFF PHYSICIAN Cosigned: 10/08/2024 18:17 KRISTAL ANGUIANO [facility]
--- OUTSIDE RECORDS SUMMARY | 2024-10-04 05:49 | XMS_ITS | Encounter Summary ---
Author Name [facility] [place] [facility] [place] [facility] [place] Address [address] [place] [address] Care Team Providers Care Regional Retail Sales Manager Name Role Phone HELEN MATTHEWS Primary [...] PART A Feb 09, 2019 PART A [id number] ANA GANNON EPH PATIENT MEDICARE (WNR) MEDICARE (M) PART B Feb 09, 2019 PART B [id number] ANA GANNON EPH PATIENT MEDICARE (WNR) MEDICARE (M) PART A Feb 09, 2019 PART A [id number] ANA GANNON EPH PATIENT MEDICARE (WNR) MEDICARE (M) PART B Feb 09, 2019 PART B [id number] ANA GANNON PATIENT MEDICARE (WNR) MEDICARE (M) PART A Feb 09, 2019 PART A [id number] [phone] ANA GANNON EPH PATIENT MEDICARE (WNR) MEDICARE (M) PART B Feb 09, 2019 PART B [id number] [phone] ANA GANNON PATIENT MEDICARE PART D (WNR) MEDICARE (M) PART D Sep 11, 2019 PART D [id number] ANA GANNON PATIENT Selected Encounter This section includes the information on record at [place] for the Encounter. Date/Time Encounter Type Encounter Description Reason Provider Source Oct 04, 2024 10:49 AM REM INTERROG EVL PM/IDS CIED DEVICES ICD-10-CM R00.1 Bradycardia, unspecified DAVION SKINNER [employer] Encounter Template Text not used by [place] Assessments - Encounter Diagnoses This section includes the primary and secondary diagnoses documented for the Encounter. Date/Time Primary/Secondary Diagnosis Diagnosis Name Provider Source Oct 11, 2024 08:04 AM PRIMARY Bradycardia, unspecified PAULINE HEADLEY [facility] Oct 11, 2024 08:04 AM SECONDARY Presence of cardiac pacemaker PAULINE HEADLEY [facility] Plan of Treatment: Future Appointments (+ 6 months) and Future Tests (+/- 45 days) The Plan of Treatment section includes future care activities for the patient from all [place] treatmentfacilities. This section includes future appointments and future orders which are active, pending or scheduled. Future Appointments This section includes appointments that were scheduled to occur 6 months from the date of the Encounter, up to a maximum of 20 appointments. The data comes from all [place] treatment facilities. Appointment Date/Time Appointment Type Appointme nt Facility Name Oct 08, 2024 02:20 PM AMBULATORY - MEDICINE [facility] Nov 18, 2024 10:00 AM AMBULATORY - REHAB MEDICIN E [facility] Nov 22, 2024 10:00 AM AMBULATORY - MEDICINE [facility] Nov 26, 2024 02:00 PM AMBULATORY - MEDICINE [facility] Dec 12, 2024 09:00 AM AMBULATORY - MEDICINE [facility] Dec 26, 2024 12:45 PM AMBULATORY - MEDICINE [facility] Dec 26, 2024 01:00 PM AMBULATORY - MEDICINE [facility] Dec 27, 2024 09:56 AM AMBULATORY - MEDICINE [facility] Dec 31, 2024 10:00 AM AMBULATORY - MEDICINE [facility] January 30, 2025 10:00 AM AMBULATORY - MEDICINE [facility] February 06, 2025 10:00 AM AMBULATORY - MEDICINE [facility] Mar 06, 2025 10:00 AM AMBULATORY - MEDICINE [facility] Mar 18, 2025 11:00 AM AMBULATORY - MEDICINE [facility] Mar 25, 2025 01:00 PM AMBULATORY - MEDICINE [facility] Mar 27, 2025 12:15 PM AMBULATORY - MEDICINE [facility] Mar 27, 2025 12:30 PM AMBULATORY MEDICINE [facility] Active, Pending, and Scheduled Orders This section includes a listing of several types of active, pending, and scheduled orders, including clinic medications orders, diagnostic test orders, procedure orders and consult orders; where the start date of the order is 45 days before the date of the Encounter or 45 days after the date of theEncounter. The data comes from all [facility] facilities. Test Date/Time Test Type Test Details Facility Name Oct 04, 2024 06:00 AM Laboratory - Blood Bank Order TYPE & SCREEN - LAB BLOOD WC [facility] Lab Results: +/- 30 days [...] Type Comment Oct 04, 2024 08:50 AM [facility] GLUCOSE,BLOOD-poct (STL) BLOOD Specimen Type: BLOOD Comment: Test Performed by: [id number] Meter #: [id number] Ordering Provider: GONZALO WALTER Report Released Date/Time: Oct 04, 2024 05:32 PM Reporting Lab: [address] [address] Performing Lab: [address] [address] GLUCOSE,BLOOD-poct (STL) 127 mg/dL H 72-99 Oct 04, 2024 08:11 AM [facility] GLUCOSE,BLOOD-poct (STL) BLOOD Specimen Type: BLOOD Comment: Test Performed by: [id number] Meter #: [id number] Ordering Provider: HELEN MATTHEWS Report Released Date/Time: Oct 04, 2024 08:14 AM Reporting Lab: [address] [address] Performing Lab: [address] [address] GLUCOSE,BLOOD-poct (STL) 107 mg/dL H 72-99 Oct 04, 2024 08:06 AM [facility] POC AVOX PANEL BLOOD Specimen Type: BLOOD Comment: Test Performed by: [id number] Meter #: [id number] Ordering Provider: HELEN MATTHEWS Report Released Date/Time: Oct 04, 2024 08:15 AM Reporting Lab: [address] [address] Performing Lab: [address] [address] POC AVOX O2HB 72.9 L 92-100 POC AVOX THB 12.7 g/dL L 13.1-16.8 Oct 04, 2024 08:05 AM [facility] POC AVOX PANEL BLOOD Specimen Type: BLOOD Comment: Test Performed by: [id number] Meter #: [id number] Ordering Provider: HELEN MATTHEWS Report Released Date/Time: Oct 04, 2024 08:14 AM Reporting Lab: [address] [address] Performing Lab: [address] [address] POC AVOX O2HB 73.1 L 92-100 POC AVOX THB 12.8 g/dL L 13.1-16.8 Oct 04, 2024 08:04 AM [facility] POC AVOX PANEL BLOOD Specimen Type: BLOOD Comment: Test Performed by: [id number] Meter #: [id number] Ordering Provider: HELEN MATTHEWS Report Released Date/Time: Oct 04, 2024 08:13 AM Reporting Lab: [address] [address] Performing Lab: [address] [address] POC AVOX O2HB 75.3 L 92-100 POC AVOX THB 12.7 g/dL L 13.1-16.8 Oct 04, 2024 08:03 AM [facility] POC AVOX PANEL BLOOD Specimen Type: BLOOD Comment: Test Performed by: [id number] Meter #: [id number] Ordering Provider: HELEN MATTHEWS Report Released Date/Time: Oct 04, 2024 08:13 AM Reporting Lab: [address] [address] Performing Lab: [address] [address] POC AVOX O2HB 73.4 L 92-100 POC AVOX THB 13.0 g/dL L 13.1-16.8 Oct 04, 2024 07:18 AM [facility] GLUCOSE,BLOOD-poct (STL) BLOOD Specimen Type: BLOOD Comment: Test Performed by: [id number] Meter #: [id number] Ordering Provider: GONZALO WALTER Report Released Date/Time: Oct 04, 2024 05:32 PM Reporting Lab: [address] [address] Performing Lab: [address] [address] GLUCOSE,BLOOD-poct (STL) 69 mg/dL L 72-99 Oct 04, 2024 07:17 AM [facility] PT/INR NEW (STL-MA) PLASMA Specimen Type: PLAS MA No comment entered. Ordering Provider: MENA AGGARWAL Report Released Date/Time: Sep 16, 2024 09:39 AM Reporting Lab: [address] [address] Performing Lab: [address] [address] PROTIME 12.1 s 9.4-12.5 INR VALUE 1.1 {INR} Oct 04, 2024 07:17 AM [facility] BASIC METABOLIC PANEL PLASMA Specimen Type: PL ASMA Comment: No hemolysis noted. Ordering Provider: MENA AGGARWAL Report Released Date/Time: Sep 16, 2024 09:39 AM Reporting Lab: [address] [address] Performing Lab: [address] [address] CREATININE 1.62 mg/dL H 0.7-1.3 UREA NITROGEN 31.2 mg/dL H 9.0-25.0 GLUCOSE 71 mg/dL L 72-99 SODIUM 138 meq/L 136-145 POTASSIUM 4.8 meq/L 3.5-5 CHLORIDE 108 meq/L H 98-107 CARBON DIOXIDE 21 meq/L L 22-31 CALCIUM 9.5 mg/dL 8.4-10.4 EGFR (CKD-EPI 2020) 45.4 >60 Oct 04, 2024 07:17 AM [facility] CBC BLOOD Specimen Type: BLOOD No comment entered. Ordering Provider: MENA AGGARWAL Report Released Date/Time: Sep 16, 2024 09:39 AM Reporting Lab: [address] [address] Performing Lab: [address] [address] WBC 6.7 10*3/uL 3.6-11.2 RBC 4.25 10*6/uL [...] 0.00-0. 20 Sep 19, 2024 09:40 AM [facility] RENAL PANEL PLASMA Specimen Type: PLASM A Comment: No hemolysis noted. Ordering Provider: FRANCISCO DAILY Report Released Date/Time: Sep 01, 2023 11:30 AM Reporting Lab: [address] [address] Performing Lab: [address] [address] CREATININE 1.60 mg/dL H 0.7-1.3 UREA NITROGEN 34.6 mg/dL H 9.0-25.0 GLUCOSE 141 mg/dL H 72-99 SODIUM 138 meq/L 136-145 POTASSIUM 4.9 meq/L 3.5-5 CHLORIDE 110 meq/L H 98-107 CARBON DIOXIDE 20 meq/L L 22-31 CALCIUM 9.6 mg/dL 8.4-10.4 PHOSPHOROUS 3.0 mg/dL 2.3-4.7 ALBUMIN 3.9 g/dL 3.4-5 EGFR (CKD-EPI 2020) 46.1 >60 Sep 19, 2024 09:40 AM [facility] URINALYSIS (STL-PB) URINE Specimen Type: URIN E No comment entered. Ordering Provider: FRANCISCO DAILY Report Released Date/Time: Sep 01, 2023 11:30 AM Reporting Lab: [address] [address] Performing Lab: [address] [address] URINE COLOR Light-Yellow Yellow U.BILIRUBIN Negative mg/dL Negative U.PH 6.0 5.0-8.0 URINE WBC/HPF 1 /[HPF] 0-5 URINE RBC/HPF 1 /[HPF] 0-5 APPEARANCE Clear Clear U.NITRITE Negative mg/dL Negative URN.GLUCOSE 50 mg/dL H Negative URN.PROTEIN Negative mg/dL URN.UROBILINOGEN Normal mg/dL Normal URN.BLOOD Negative mg/dL Negative-Trace URN.KETONES Negative mg/dL Negative-Trac e URN.LEUK.EST. Negative mg/dL Negative-Tr malu URN.SPECIFIC GRAVITY 1.013 Sep 19, 2024 09:34 AM [facility] HGA1C BLOOD Specimen Type: BLOOD No comment entered. Ordering Provider: FRANCISCO DAILY Report Released Date/Time: Oct 10, 2023 12:32 PM Reporting Lab: [address] [address] Performing Lab: [address] [address] HGA1C 7.4 H 4.0-6.0 Sep 19, 2024 09:34 AM [facility] TACROLIMUS (STL-PB) BLOOD Specimen Type: BLOO D No comment entered. Ordering Provider: FRANCISCO DAILY Report Released Date/Time: Oct 10, 2023 12:32 PM Reporting Lab: [address] [address] Performing Lab: [address] [address] TACROLIMUS (STL-PB) 4.4 ng/mL Sep 19, 2024 09:34 AM [facility] CBC BLOOD Specimen Type: BLOOD No comment entered. Ordering Provider: FRANCISCO DAILY Report Released Date/Time: Oct 10, 2023 12:32 PM Reporting Lab: [place] [id number] Performing Lab: [facility] [address] [facility] [address] WBC 6.6 10*3/uL 3.6-11.2 RBC 4.18 10*6/uL [...] 0.00-0. 20 Sep 19, 2024 09:34 AM [facility] PROST. SPECIFIC AG.(PB-STL) SERUM Specimen Ty pe: SERUM Comment: The listed sex of this patient may not be a typical indication for this test. Therefore, reference ranges or interpretive criteria listed may not be valid. Clinical correlation suggested. Ordering Provider: HELEN MATTHEWS Report Released Date/Time: Sep 18, 2024 02:44 PM Reporting Lab: [facility] [address] [facility] [address] Performing Lab: [facility] [address] [facility] [address] PROST. SPECIFIC AG.(PB-STL) 0.418 ng/mL 0-4 Sep 19, 2024 09:34 AM [facility] LIPID PANEL (STL) PLASMA Specimen Type: PLASM A No comment entered. Ordering Provider: HELEN MATTHEWS Report Released Date/Time: Sep 18, 2024 02:51 PM Reporting Lab: [facility] [address] [facility] [address] Performing Lab: [facility] [address] [facility] [address] CHOLESTEROL 92 mg/dL 0-200 TRIGLYCERIDE 68 mg/dL [...] AM 97.8 72 134/70 18 97 0 [facility] Oct 04, 2024 09:05 AM 66 136/74 97 [facility] Oct 04, 2024 08:34 AM 97.9 63 132/50 18 0 [facility] Oct 04, 2024 08:03 AM 0 71 227 32 [facility] Oct 04, 2024 06:45 AM 97.7 82 174/74 20 96 1 [facility] Social History: Smoking Status (Most current) and Tobacco Use (All prior to encounter date) This section includes the most current, and the historical, smoking and tobacco- related health factors from the [place] facility where the Encounter took place. Current Smoking Status This section includes the most current smoking, or tobacco-related health factor, from the [place] facility where the Encounter took place. Date/Time Current Smoking Status Comment Jg crowe Apr 12, 2024 02:09 PM VA-TOBACCO NEVER USED [facility] Tobacco Use History This section includes a history of the smoking, or tobacco-related health factors, that were collected on or before the date of the Encounter. The data comes from the [place] facility where the Encounter took place. Date/Time Smoking Status/Tobacco Use Comment F tamie Nov 07, 2022 01:35 PM VA-TOBACCO NEVER USED [facility] Mar 17, 2021 07:44 PM ORYX ADMIT TOBACCO SCREEN NO [facility] Dec 18, 2020 11:14 PM VA-TOBACCO NEVER USED [facility] Dec 18, 2020 08:23 PM ORYX ADMIT TOBACCO SCREEN NO [facility] Nov 14, 2006 01:52 PM LIFETIME NON-USER OF TOBACCO [facility] Nov 22, 2005 02:20 PM LIFETIME NON-TOBACCO USER [facility] Dec 08, 2004 01:37 PM LIFETIME NON-TOBACCO USER [facility] Jul 28, 2004 01:13 PM LIFETIME NON-TOBACCO USER [facility] Jul 09, 2003 01:05 PM LIFETIME NON-TOBACCO USER [facility] Jun 26, 2002 02:05 PM LIFETIME NON-TOBACCO USER [facility] May 23, 2001 01:12 PM LIFETIME NON-TOBACCO USER [facility] Jun 14, 2000 01:24 PM LIFETIME NON-TOBACCO USER [facility] Radiology Reports: +/- 30 days of [...] the Encounter. The data comes from all [place] treatment facilities. Date/Time Radiology Report Provider Source Sep 10, 2024 08:50 AM CHEST X-RAY, 2 VIE WS: DAT GANNON [id number] -[id number] M Ex Date: SEP 10, 2024@08:50 Req Phys: THI GAN Pat Loc: [facility] (Req'g Img Loc: [facility]-MAIN RADIOLOGY SUITE Service: [address] [address] (Case [id number] COMPLETE) CHEST X-RAY, 2 VIEWS (RAD Detailed) CPT:06461 Reason for Study: V/Q scan Clinical History: with V/Q scan fro comparison Report Status: Verified Date Reported: SEP 10, 2024 Date Verified: SEP 10, 2024 Drill Sergeant E-Sig:/ES/CHIARA ALFORD Report: EXAMINATION: CHEST X-RAY, 2 [...] Primary Interpreting Staff: CHIARA ALFORD, Staff Physician (Drill Sergeant) /CHIARA SOARES [facility] Sep 10, 2024 08:49 AM NM LUNG V/Q -P: DAT GANNON [id number] -[id number] M Exm Date: SEP 10, 2024@08:49 Req Phys: THI GAN Pat Loc: [facility] (Req'g Img Loc: [facility]NUCLEAR MEDIC[facility] Service: Unknown [address] [address] (Case [id number] COMPLETE) PULMONARY VENTILATION AND PERFUSI(NM Detailed) CPT:16509 Reason for Study: oulmonary emboli (Case [id number] [...] 10, 2024 Date Verified: SEP 10, 2024 Drill Sergeant E-Sig:/ES/Aleah Gaming MD,PhD Report: CASE #: [id number], [id number], [id number], [id number]. Examination: Ventilation/perfusion lung scan REFERRING PHYSICIAN: Dr. [...] obtained . COMPARISON: There is no prior [place] lung scan available for review. Chest x-ray [...] Staff: Aleah Gaming MD,PhD, Nuclear Medicine Physician (Drill Sergeant) /ALEAH GILBERT [facility] Encounter Notes: All associated encounter notes This section contains the clinical notes associated to the Encounter. Date/Time Encounter Note(s) Provider Source Oct 04, 2024 10:49 AM INTERVENTIONAL CAR DIOLOGY NOTE: LOCAL TITLE: CARDIOLOGY DEVICE SURVEILLANCE NOTE ST STANDARD TITLE: INTERVENTIONAL CARDIOLOGY NOTE DATE OF NOTE: OCT 04, 2024@10:49 ENTRY DATE: OCT 04, 2024@10:49:52 AUTHOR: PAULINE HEADLEY EXP COSIGNER: URGENCY: STATUS: COMPLETED [employer] PAC[employer] REMOTE INTERROGATIONWITH ALERT [place] SURVEILLANCE: Arrhythmia: - AFL/AF episodes noted, longest episode 6 minutes to < 24 hours Device/Lead(s): - No significant abnormalities - Available daily battery/lead measurements within expected range - Lead trends stable EP FOLLOWING: MATT/BRODY Pt's Flipping Machine Operator: PT MEDS: APIXABAN, METOPROLOL REVEIWED WITH REP: REMOTE Pacemaker was interrogated REASON FOR PACER: chronotropic incompetence. PACER: [employer] L311 ACCOLADE MRI SN: [id number] DOI: 12/19/2018 RA Lead: [employer] 7741/52 Ingevity MRI SN: [id number] DOI: 12/19/2018 RV Lead: [employer] 7742/59 Ingevity MRI SN: [id number] DOI: 12/19/2018 ABANDONED LEADS: NONE Per CXR DATE: 12/20/2018 Presenting Rhythm: Ap/Vs Underlying Rhythm: REMOTE Dependent: NO Battery Status: 2.5 yrs % Pacing: RA: 82% RV: 1% Mode: DDDR Rate: 60/130 MODE SWITCHES: AT/AF BURDEN: 1% ATRIAL HIGH RATE: 58 AT/AF LONGEST 19H 52M O 03/06/2024 AVG HR 83 VENTRICULAR: NONE OBSERVATIONS/COMMENTS: NONE NEXT HOME REMOTE: COMPLIANT RTC: 1 year 10/2024 /kaylyn HEADLEY BSN,RN,CEPS REGISTERED NURSE Signed: 10/04/2024 11:52 Receipt Acknowledged By: 10/07/2024 08:36 /charly/ DAVION SKINNER STILE RIPSAW OPERATOR CARDIOLOGY/ELECTROPHYSIOLO GY STILE RIPSAW OPERATOR PAULINE HEADLEY [facility]
--- OUTSIDE RECORDS SUMMARY | 2024-10-08 09:20 | XMS_ITS | Encounter Summary ---
Author Name [facility] [place] [facility] [place] Address [address] [place] [address] Care Team Providers Care Dictionary Editor Name Role Phone HELEN MATTHEWS Primary Care [...] PART A Feb 09, 2019 PART A [id number] ANA GANNON EPH PATIENT MEDICARE (WNR) MEDICARE (M) PART B Feb 09, 2019 PART B [id number] ANA GANNON EPH PATIENT MEDICARE (WNR) MEDICARE (M) PART A Feb 09, 2019 PART A [id number] ANA GANNON EPH PATIENT MEDICARE (WNR) MEDICARE (M) PART B Feb 09, 2019 PART B [id number] ANA GANNON EPH PATIENT MEDICARE (WNR) MEDICARE (M) PART A Feb 09, 2019 PART A [id number] [phone] ANA GANNON EPH PATIENT MEDICARE (WNR) MEDICARE (M) PART B Feb 09, 2019 PART B [id number] [phone] ANA GANNON EPH PATIENT MEDICARE PART D (WNR) MEDICARE (M) PART D Sep 11, 2019 PART D [id number] ANA GANNON PATIENT Selected Encounter This section includes the information on record at [place] for the Encounter. Date/Time Encounter Type Encounter Description Reason Provider Source Oct 08, 2024 02:20 PM OFFICE O/P EST HI 40 MIN RENAL/NEPHROL(EXCE PT DIALYSIS) ICD-10-CM E08.22 Diabetes due to undrl cond w diabetic chronic kidney disease SRI WINTERS [facility] Encounter Template Text not used by [place] Assessments - Encounter Diagnoses This section includes the primary and secondary diagnoses documented for the Encounter. Date/Time Primary/Secondary Diagnosis Diagnosis Name Provider Source Oct 08, 2024 02:52 PM PRIMARY Diabetes due to undrl cond w diabetic chronic kidney disease [facility] Oct 08, 2024 02:52 PM SECONDARY Anemia in chronic kidney [facility] Oct 08, 2024 02:52 PM SECONDARY Atherosclerosis of CABG w/o angina pectoris [facility] Oct 08, 2024 02:52 PM SECONDARY Encounter for aftercare following kidney transplant [facility] Oct 08, 2024 02:52 PM SECONDARY Hyperlipidemia, unspecified [facility] Oct 08, 2024 02:52 PM SECONDARY Hyperparathyroidism, unspecified [facility] Oct 08, 2024 02:52 PM SECONDARY Other sleep apnea [facility] Oct 08, 2024 02:52 PM SECONDARY Personal history of other venous thrombosis and embolism JAVA,SRI [facility] Oct 08, 2024 02:52 PM SECONDARY Presence of insulin pump (external) (internal) SRI WINTERS [facility] Oct 08, 2024 02:52 PM SECONDARY Type 1 diabetes mellitus with diabetic nephropathy CARL WINTERSUJA [facility] Plan of Treatment: Future Appointments (+ 6 months) and Future Tests (+/- 45 days) The Plan of Treatment section includes future care activities for the patient [facility] This section includes future appointments and future orders which are active, pending or scheduled. Future Appointments This section includes appointments that were scheduled to occur 6 months from the date of the Encounter, up to a maximum of 20 appointments. The data comes from all [facility] facilities. Appointment Date/Time Appointment Type Appointme nt Facility Name Nov 18, 2024 10:00 AM AMBULATORY - REHAB MEDICIN E [facility] Nov 22, 2024 10:00 AM AMBULATORY - MEDICINE [facility] Nov 26, 2024 02:00 PM AMBULATORY - MEDICINE [facility] Dec 12, 2024 09:00 AM AMBULATORY - MEDICINE [facility] Dec 26, 2024 12:45 PM AMBULATORY - MEDICINE [facility] Dec 26, 2024 01:00 PM AMBULATORY - MEDICINE [facility] Dec 27, 2024 09:56 AM AMBULATORY - MEDICINE [facility] Dec 31, 2024 10:00 AM AMBULATORY - MEDICINE [facility] January 30, 2025 10:00 AM AMBULATORY - MEDICINE [facility] February 06, 2025 10:00 AM AMBULATORY - MEDICINE [facility] Mar 06, 2025 10:00 AM AMBULATORY - MEDICINE [facility] Mar 18, 2025 11:00 AM AMBULATORY - MEDICINE [facility] Mar 25, 2025 01:00 PM AMBULATORY - MEDICINE [facility] Mar 27, 2025 12:15 PM AMBULATORY - MEDICINE [facility] Mar 27, 2025 12:30 PM AMBULATORY - MEDICINE [facility] Apr 07, 2025 08:30 AM AMBULATORY - MEDICINE [facility] Active, Pending, and Scheduled Orders This section includes a listing of several types of active, pending, and scheduled orders, including clinic medications orders, diagnostic test orders, procedure orders and consult orders; where the start date of the order is 45 days before the date of the Encounter or 45 days after the date of theEncounter. The data comes from all [place] treatment facilities. Test Date/Time Test Type Test Details Facility Name Oct 04, 2024 06:00 AM Laboratory - Blood Bank Order TYPE & SCREEN - LAB BLOOD WC [facility] Lab Results: +/- 30 days of [...] Oct 04, 2024 08:50 AM [facility] GLUCOSE,BLOOD-poct (STL) BLOOD Specimen Type: BLOOD Comment: Test Performed by: [id number] Meter #: [id number] Ordering Provider: GONZALO WALTER Report Released Date/Time: Oct 04, 2024 05:32 PM Reporting Lab: [address] [address] Performing Lab: [address] [address] GLUCOSE,BLOOD-poct (STL) 127 mg/dL H 72-99 Oct 04, 2024 08:11 AM [facility] GLUCOSE,BLOOD-poct (STL) BLOOD Specimen Type: BLOOD Comment: Test Performed by: [id number] Meter #: [id number] Ordering Provider: HELEN MATTHEWS Report Released Date/Time: Oct 04, 2024 08:14 AM Reporting Lab: [address] [address] Performing Lab: [address] [address] GLUCOSE,BLOOD-poct (STL) 107 mg/dL H 72-99 Oct 04, 2024 08:06 AM [facility] POC AVOX PANEL BLOOD Specimen Type: BLOOD Comment: Test Performed by: [id number] Meter #: [id number] Ordering Provider: HELEN MATTHEWS Report Released Date/Time: Oct 04, 2024 08:15 AM Reporting Lab: [address] [address] Performing Lab: [address] [address] POC AVOX O2HB 72.9 L 92-100 POC AVOX THB 12.7 g/dL L 13.1-16.8 Oct 04, 2024 08:05 AM [facility] POC AVOX PANEL BLOOD Specimen Type: BLOOD Comment: Test Performed by: [id number] Meter #: [id number] Ordering Provider: HELEN MATTHEWS Report Released Date/Time: Oct 04, 2024 08:14 AM Reporting Lab: [address] [address] Performing Lab: [address] [address] POC AVOX O2HB 73.1 L 92-100 POC AVOX THB 12.8 g/dL L 13.1-16.8 Oct 04, 2024 08:04 AM [facility] POC AVOX PANEL BLOOD Specimen Type: BLOOD Comment: Test Performed by: [id number] Meter #: [id number] Ordering Provider: HELEN MATTHEWS Report Released Date/Time: Oct 04, 2024 08:13 AM Reporting Lab: [address] [address] Performing Lab: [address] [address] POC AVOX O2HB 75.3 L 92-100 POC AVOX THB 12.7 g/dL L 13.1-16.8 Oct 04, 2024 08:03 AM [facility] POC AVOX PANEL BLOOD Specimen Type: BLOOD Comment: Test Performed by: [id number] Meter #: [id number] Ordering Provider: HELEN MATTHEWS Report Released Date/Time: Oct 04, 2024 08:13 AM Reporting Lab: [address] [address] Performing Lab: [address] [address] POC AVOX O2HB 73.4 L 92-100 POC AVOX THB 13.0 g/dL L 13.1-16.8 Oct 04, 2024 07:18 AM [facility] GLUCOSE,BLOOD-poct (L) BLOOD Specimen Type: BLOOD Comment: Test Performed by: [id number] Meter #: [id number] Ordering Provider: GONZALO WALTER Report Released Date/Time: Oct 04, 2024 05:32 PM Reporting Lab: [address] [address] Performing Lab: [address] [address] GLUCOSE,BLOOD-poct (L) 69 mg/dL L 72-99 Oct 04, 2024 07:17 AM [facility] PT/INR NEW (L-MA) PLASMA Specimen Type: PLAS MA No comment entered. Ordering Provider: MENA AGGARWAL Report Released Date/Time: Sep 16, 2024 09:39 AM Reporting Lab: [address] [address] Performing Lab: [address] [address] PROTIME 12.1 s 9.4-12.5 INR VALUE 1.1 {INR} Oct 04, 2024 07:17 AM [facility] BASIC METABOLIC PANEL PLASMA Specimen Type: PL ASMA Comment: No hemolysis noted. Ordering Provider: MENA AGGARWAL Report Released Date/Time: Sep 16, 2024 09:39 AM Reporting Lab: [address] [address] Performing Lab: [address] [address] CREATININE 1.62 mg/dL H 0.7-1.3 UREA NITROGEN 31.2 mg/dL H 9.0-25.0 GLUCOSE 71 mg/dL L 72-99 SODIUM 138 meq/L 136-145 POTASSIUM 4.8 meq/L 3.5-5 CHLORIDE 108 meq/L H 98-107 CARBON DIOXIDE 21 meq/L L 22-31 CALCIUM 9.5 mg/dL 8.4-10.4 EGFR (CKD-EPI 2020) 45.4 >60 Oct 04, 2024 07:17 AM [facility] CBC BLOOD Specimen Type: BLOOD No comment entered. Ordering Provider: MENA AGGARWAL Report Released Date/Time: Sep 16, 2024 09:39 AM Reporting Lab: [address] [address] Performing Lab: [address] [address] WBC 6.7 10*3/uL 3.6-11.2 RBC 4.25 10*6/uL [...] Sep 19, 2024 09:40 AM [facility] RENAL PANEL PLASMA Specimen Type: PLASM A Comment: No hemolysis noted. Ordering Provider: SRI WINTERS Report Released Date/Time: Sep 01, 2023 11:30 AM Reporting Lab: [address] [address] Performing Lab: [address] [address] CREATININE 1.60 mg/dL H 0.7-1.3 UREA NITROGEN 34.6 mg/dL H 9.0-25.0 GLUCOSE 141 mg/dL H 72-99 SODIUM 138 meq/L 136-145 POTASSIUM 4.9 meq/L 3.5-5 CHLORIDE 110 meq/L H 98-107 CARBON DIOXIDE 20 meq/L L 22-31 CALCIUM 9.6 mg/dL 8.4-10.4 PHOSPHOROUS 3.0 mg/dL 2.3-4.7 ALBUMIN 3.9 g/dL 3.4-5 EGFR (CKD-EPI 2020) 46.1 >60 Sep 19, 2024 09:40 AM [facility] URINALYSIS (STL-PB) URINE Specimen Type: URIN E No comment entered. Ordering Provider: SRI WINTERS Report Released Date/Time: Sep 01, 2023 11:30 AM Reporting Lab: [address] [address] Performing Lab: [address] [address] URINE COLOR Light-Yellow Yellow U.BILIRUBIN Negative mg/dL Negative U.PH 6.0 5.0-8.0 URINE WBC/HPF 1 /[HPF] 0-5 URINE RBC/HPF 1 /[HPF] 0-5 APPEARANCE Clear Clear U.NITRITE Negative mg/dL Negative URN.GLUCOSE 50 mg/dL H Negative URN.PROTEIN Negative mg/dL URN.UROBILINOGEN Normal mg/dL Normal URN.BLOOD Negative mg/dL Negative-Trace URN.KETONES Negative mg/dL Negative-Trac e URN.LEUK.EST. Negative mg/dL Negative-Tr malu URN.SPECIFIC GRAVITY 1.013 Sep 19, 2024 09:34 AM [facility] HGA1C BLOOD Specimen Type: BLOOD No comment entered. Ordering Provider: SRI WINTERS Report Released Date/Time: Oct 10, 2023 12:32 PM Reporting Lab: [address] [address] Performing Lab: [address] [address] HGA1C 7.4 H 4.0-6.0 Sep 19, 2024 09:34 AM [facility] TACROLIMUS (STL-PB) BLOOD Specimen Type: BLOO D No comment entered. Ordering Provider: SRI WINTERS Report Released Date/Time: Oct 10, 2023 12:32 PM Reporting Lab: [address] [address] Performing Lab: [address] [address] TACROLIMUS (STL-PB) 4.4 ng/mL Sep 19, 2024 09:34 AM [facility] CBC BLOOD Specimen Type: BLOOD No comment entered. Ordering Provider: SRI WINTERS Report Released Date/Time: Oct 10, 2023 12:32 PM Reporting Lab: [address] [address] Performing Lab: [address] [address] WBC 6.6 10*3/uL 3.6-11.2 RBC 4.18 10*6/uL [...] 0.00-0. 20 Sep 19, 2024 09:34 AM [facility] PROST. SPECIFIC AG.(PB-STL) SERUM Specimen Ty pe: SERUM Comment: The listed sex of this patient may not be a typical indication for this test. Therefore, reference ranges or interpretive criteria listed may not be valid. Clinical correlation suggested. Ordering Provider: HELEN MATTHEWS Report Released Date/Time: Sep 18, 2024 02:44 PM Reporting Lab: [address] [address] Performing Lab: [address] [address] PROST. SPECIFIC AG.(PB-STL) 0.418 ng/mL 0-4 Sep 19, 2024 09:34 AM [facility] LIPID PANEL (STL) PLASMA Specimen Type: PLASM A No comment entered. Ordering Provider: HELEN MATTHEWS Report Released Date/Time: Sep 18, 2024 02:51 PM Reporting Lab: [address] [address] Performing Lab: [address] [address] CHOLESTEROL 92 mg/dL 0-200 TRIGLYCERIDE 68 mg/dL 0-150 CALCULATED LDL 35 mg/dL HDL(New) 43 mg/dL >40 Vital Signs: All taken on the encounter date This section contains inpatient and outpatient Vital Signs collected on the date of the Encounter. Date/Time Temperature Pulse Blood Pressure Respiratory Rate SP02 Pain Height Weight Body Mass Index Source Oct 08, 2024 02:11 PM 143/66 [facility] Oct 08, 2024 02:11 PM 97.9 86 160/67 18 96 0 230.7 32 [facility] Social History: Smoking Status (Most current) and Tobacco Use (All prior to encounter date) This section includes the most current, and the historical, smoking and tobacco- related health factors from the [facility] where the Encounter took place. Current Smoking Status This section includes the most current smoking, or tobacco-related health factor, from the [place] facility where the Encounter took place. Date/Time Current Smoking Status Comment Jg amrita Apr 12, 2024 02:09 PM VA-TOBACCO NEVER USED [facility] Tobacco Use History This section includes a history of the smoking, or tobacco-related health factors, that were collected on or before the date of the Encounter. The data comes from the [facility] where the Encounter took place. Date/Time Smoking Status/Tobacco Use Comment F acility Nov 07, 2022 01:35 PM VA-TOBACCO NEVER USED [facility] Mar 17, 2021 07:44 PM ORYX ADMIT TOBACCO SCREEN NO [facility] Dec 18, 2020 11:14 PM VA-TOBACCO NEVER USED [facility] Dec 18, 2020 08:23 PM ORYX ADMIT TOBACCO SCREEN NO [facility] Nov 14, 2006 01:52 PM LIFETIME NON-USER OF TOBACCO [facility] Nov 22, 2005 02:20 PM LIFETIME NON-TOBACCO USER [facility] Dec 08, 2004 01:37 PM LIFETIME NON-TOBACCO USER [facility] Jul 28, 2004 01:13 PM LIFETIME NON-TOBACCO USER [facility] Jul 09, 2003 01:05 PM LIFETIME NON-TOBACCO USER [facility] Jun 26, 2002 02:05 PM LIFETIME NON-TOBACCO USER [facility] May 23, 2001 01:12 PM LIFETIME NON-TOBACCO USER [facility] Jun 14, 2000 01:24 PM LIFETIME NON-TOBACCO USER [facility] Radiology Reports: +/- 30 days of [...] comes from all [place] treatment facilities. Date/Time Radiology Report Provider Source Sep 10, 2024 08:50 AM CHEST X-RAY, 2 VIE WS: DAT GANNON [id number] -[id number] M Exm Date: SEP 10, 2024@08:50 Req Phys: THI GAN Loc: -PULMONARY DEMIDENKO (Req'g Img Loc: -MAIN RADIOLOGY SUITE Service: Unknown [address] [address] (Case [id number] COMPLETE) CHEST X-RAY, 2 VIEWS (RAD Detailed) CPT:53290 Reason for Study: V/Q scan Clinical History: with V/Q scan fro comparison Report Status: Verified Date Reported: SEP 10, 2024 Date Verified: SEP 10, 2024 Transplant Surgeon E-Sig:/ES/CHIARA ALFORD Report: EXAMINATION: CHEST X-RAY, 2 [...] Primary Interpreting Staff: CHIARA ALFORD, Staff Physician (Transplant Surgeon) /CHIARA [facility] Sep 10, 2024 08:49 AM [place] LUNG V/Q -P: DAT GANNON [id number] -[id number] M Exm Date: SEP 10, 2024@08:49 Req Phys: THI GAN Loc: MATT-PULMONARY DEMIDENKO (Req'g Img Loc: -NUCLEAR MEDICINE Service: Unknown [address] [address] (Case [id number] COMPLETE) PULMONARY VENTILATION AND PERFUSI(NM Detailed) CPT:97598 Reason for Study: oulmonary emboli (Case [id number] [...] 10, 2024 Date Verified: SEP 10, 2024 Transplant Surgeon E-Sig:/ES/Aleah Gaming MD,PhD Report: CASE #: [id number], [id number], [id number], [id number]. Examination: Ventilation/perfusion lung scan REFERRING PHYSICIAN: Dr. [...] obtained . COMPARISON: There is no prior [place] lung scan available for review. Chest x-ray [...] Staff: Aleah Gaming MD,PhD, Nuclear Medicine Physician (Transplant Surgeon) /ALEAH GILBERT [facility] Encounter Notes: All associated encounter notes This section contains the clinical notes associated to the Encounter. Date/Time Encounter Note(s) Provider Source Oct 08, 2024 11:59 AM NEPHROLOGY OUTPATI ENT NOTE: LOCAL TITLE: NEPHROLOGY OUTPATIENT FOLLOW UP [facility] STANDARD TITLE: NEPHROLOGY OUTPATIENT NOTE DATE OF NOTE: OCT 08, 2024@11:59 ENTRY DATE: OCT 08, 2024@11:59:18 AUTHOR: SIR WINTERS EXP COSIGNER: URGENCY: STATUS: COMPLETED RENAL CLINIC FOLLOW-UP NOTE CHIEF COMPLAINT: Follow-up post kidney transplantation. HISTORY OF PRESENT ILLNESS: Mr. 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 The patient is being seen today via televisit for continued care of his kidney disease,allograft,immunosuppres alicia and other medical issues. RENAL PROBLEM LIST: 1. History of chronic kidney disease, stage 5, secondary to diabetic nephropathy with a creatinine of 4.1 to 4.4 at baseline. He was not initiated on dialysis prior to transplant. He followed with . 2. Status post -donor renal allograft on March 29, 2012; 1A,1B,1DR antigen mismatched kidney with CMV D+/R-. Thymoglobulin induction therapy 5 mg/kg at 100/200/200 mg[address] His surgeon [address] Greenberg. He had a ureteral stent and Jh-Shukla drain placed at the time of transplant.The patient had slow graft function, but was discharged on postoperative day five with a creatinine of 2.1. He had Alegria catheter removed prior to discharge, but KERVIN drain and ureteral stent were later removed. He did not receive iron infusion or any blood transfusions during his hospitalization. He was discharged on triple immunosuppression therapy with Prograf, Myfortic, and prednisone. Baseline creatinine approximately 1.0. 3. Diabetes mellitus Type 1, diagnosed in 1978 with a hemoglobin A1c prior to transplant of 7.6.Complications include neuropathy, gastroparesis, and nephropathy. 4. Hypertension. 5. Anemia of chronic kidney disease. 6. Renal osteodystrophy. The patient did not require cinacalcet before transplantation. 7. Chronic foot ulcers that healed prior to transplant. 8. Gastroesophageal reflux disease. 9. Colon polyps, tubular adenomatous per colonoscopy in 2008. 10. History of CMV viremia. A CMV PCR on July 23, 2012 showed 2510 copies. He was started on Valcyte 900 mg b.i.d. At that time, he was not on Myfortic due to leukopenia. On July his CMV PCR was less than 2000 copies and CMV PCR has been negative since August 06, 2012. 11. Vitamin D insufficiency with level of 24 in December 2012. 12. Chronic diabetic ulcer involving the right heel since October 2012. The patient is seen in a wound clinic in [place], [place] on weekly basis for dressings. 13. Extensive right leg deep vein thrombosis with occlusion of the superficial femoral and popliteal veins, as well as partial occlusion of the posterior tibial and peroneal veins on May 04, 2013, on Coumadin therapy with an anticipated treatment time of six months. He was hospitalized at [facility] for right leg swelling in April 2013 and a DVT was diagnosed. Since this was his second recurrence he was on Xarelto managed by his PCP. 14. BPH and ED, on Flomax. He follows with Dr. King. 15. Mild right hip osteoarthritis. Seen by Dr. Dallas. 16. Status post fall August 31 which resulted in a left tibial shaft fracture. The fracture did not require surgical intervention and was followed conservatively. 17. Pacemaker placed on December 2018 secondary to chronotropic incompetence. Patient had a very poor heart rate response to exercise. Outpatient Medications: Active Outpatient Medications (including Supplies): Active Outpatient [...] (FOR PROSTATE) Indication: FOR BENIGN PROSTATIC HYPERPLASIA Physical exam: Temperature: 97.8 F [36.6 C] (10/04/2024 10:00) Blood Pressure: 134/70 (10/04/2024 10:00) Pulse: 72 (10/04/2024 10:00) Respirations: 18 (10/04/2024 10:00) O2 Saturation: 97% (10/04/2024 10:00) Gen: NAD HEENT:anicteric sclera Neck:supple Lungs:CTAb CV:nl s1 and s2 Abd:soft,nontender, no bruits Ext:no edema Neuro:no gross abnormalities Lab Data: CBC: WBC 6.7 10*3/uL 10/04/2024 07:17 RBC 4.25 10*6/uL 10/04/2024 07:17 HGB 13.0 L g/dL 10/04/2024 07:17 HCT 39.0 % 10/04/2024 07:17 MCV 91.8 fL 10/04/2024 07:17 MCH 30.6 pg 10/04/2024 07:17 MCHC 33.3 g/dL 10/04/2024 07:17 RDW 12.9 % 10/04/2024 07:17 PLT 159 10*3/uL 10/04/2024 07:17 MPV 10.0 fL 10/04/2024 07:17 NEUTROPHILS, AUTO % 69 % 10/04/2024 07:17 LYMPHOCYTES, AUTO % 16 % 10/04/2024 07:17 MONOCYTES, AUTO % 10 % 10/04/2024 07:17 EOSINOPHILS, AUTO % 4 % 10/04/2024 07:17 BASOPHILS, AUTO % 1 % 10/04/2024 07:17 NEUTROPHILS, ABSOLUTE 4.60 10*3/uL 10/04/2024 07:17 LYMPHOCYTES, ABSOLUTE 1.05 10*3/uL 10/04/2024 07:17 MONOCYTES, ABSOLUTE 0.64 10*3/uL 10/04/2024 07:17 EOSINOPHILS, ABSOLUTE 0.29 10*3/uL 10/04/2024 07:17 BASOPHILS, ABSOLUTE 0.05 10*3/uL 10/04/2024 07:17 NRBC% 0 #/100 (WBCs) 10/26/2022 16:17 IMMATURE PLT FRACTION 3.8 % 04/01/2024 11:24 Renal Function Panel: SODIUM 138 mEq/L 10/04/2024 07:17 POTASSIUM 4.8 mEq/L 10/04/2024 07:17 CHLORIDE 108 H mEq/L 10/04/2024 07:17 UREA NITROGEN 31.2 H mg/dL 10/04/2024 07:17 CREATININE 1.62 H mg/dL 10/04/2024 07:17 CALCIUM 9.5 mg/dL 10/04/2024 07:17 CARBON DIOXIDE 21 L mEq/L 10/04/2024 07:17 GLUCOSE 71 L mg/dL 10/04/2024 07:17 EGFR (CKD-EPI 2020) 45.4 10/04/2024 07:17 ALBUMIN 3.9 g/dL 09/19/2024 09:40 ALBUMIN (PB-sendout) 3.9 g/dL 02/21/2023 10:34 PHOSPHOROUS 3.0 mg/dL 09/19/2024 09:40 No VITAMIN D 25 HYDROXY EO data found Urine Studies: URINE COLOR Light-Yellow 09/19/2024 09:40 APPEARANCE Clear 09/19/2024 09:40 U.PH 6.0 09/19/2024 09:40 U.BILIRUBIN Negative mg/dL 09/19/2024 09:40 U.NITRITE Negative mg/dL 09/19/2024 09:40 URINE RBC/HPF 1 /HPF 09/19/2024 09:40 URINE WBC/HPF 1 /HPF 09/19/2024 09:40 BACTERIA RARE /HPF 06/21/2024 08:53 MUCUS RARE /LPF 06/21/2024 08:53 HYALINE CASTS 1 /LPF 08/20/2024 08:21 U.SPERM RARE /HPF 04/07/2023 08:35 CREATuF: 72.3 (09/28/23 08:49) M/CREAT: comment (02/21/23 10:34) MICRAL: <5.0 (02/21/23 10:34) RENAL USG: The transplant kidney measures 11.2 x 6.0 x 4.5 cm longitudinally. The kidney has normal echotexture. The main renal vein is patent. There is no fluid collection. There is no hydronephrosis or calculi. The right external iliac artery velocity just proximal to the anastomosis measures 252 cm/s with RI of 0.87. The right external iliac artery velocity just distal to the anastomosis measures 215 cm/s. The renal artery peak velocity measures 303 cm/s at the anastomosis with RI of 0.83. The mid segment of the renal artery measures 159 cm/s with resistive index of 0.80 The distal renal artery at the hilum has peak velocity of 154 cm/s with RI of 0.8. Lower pole interlobar renal artery RI: 0.7 Mid pole interlobar renal artery RI: 0.7 Lower pole interlobar renal artery RI: 0.7 No tardus parvus waveforms. The bladder is normal. Impression: Normal renal transplant appearance with patent vessels and no evidence of renal artery stenosis. ASSESSMENT AND PLAN: 1. End-stage renal disease secondary to diabetic nephropathy status post a donor renal allograft transplantation in 2011, now with CKD3b: Renal function had been with cr ~1.3-1.5 with 1.7-1.9 for the past 4 years (since Aug 2021). Urine with no blood or protein. Lytes WNL. Likely slow progression of kidney disease. I got renal doppler to evaluate and no e/o SHY. 2.High risk Immunosuppression: Currently on prednisone 5 mg daily and tacro 2mg am and 1 mg pm. He takes his meds at 8 am and 6 pm. Tacrolimus levels 4-7. I have stopped the myfortic d/t skin cancer and h/o osteo foot. 3. Hypertension: BP controlled at home. He is on lisinopril to 40 mg, metoprolol 100 mg BID, norvasc 10 mg daily and bumex 1 mg every other day but he takes it prn. The lower ext edema is unequal b/l and most likely due to chronic DVT/lymphedema. he is followed in the lymphedema clinic. I have asked him to take bumex twice weekly instead of 3 x week. 4. Dyslipidemia: Excellent control on current simvastatin. We will continue without change. LDL 35, HDL 43. 5. Diabetes mellitus type 1: On insulin pump. A1C 7.4. The patient has been following with the [facility] closely, by Dr. Kim at [place] and Dr. Stefanie Yeung here at [place]. Still using the rowing machine and also watching his diet. I have discussed this extensively with the patient. He notes that he has been using an air fryer. Had advised that he see the soft metals hand engraver for further advice as recommended by amber that might help with making better food choices. 6. 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 Appreciate heme input. 7. BPH: on flomax. Has been having urinary frequency concerning for incomplete emptying. Will increase flomax to 0.8 mg daily. 8. Prophylaxis: Bactrim has been dced d/t skin cancer and hyperkalemia. Recd flu shot. Colonoscopy was done last year June 2018. Got colonoscopy last year in the community and was told to come in 3 years 9.MEDARDO: not using CPAP at this time since did not tolerate it but is using the CPAP now and may bring the pulm HTN values now. PROCEDURE SUMMARY -Mild, post-capillary pulmonary hypertension with mean PA: 31 mmHg and PCWP: 19mmHg -Elevated right and left filling pressures 10. Health maintainence: Pt is being followed by Dermatology. 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 none since then Off MMF. Uptodate on vaccinations. Also got the evusheld. Also got the shingrix and RSV. Skin cancer: hx NMSC (most recently SCCis of left upper arm s/p Efudex x 6 weeks; also SCCIS R cheek and L leg s/p Efudex x 6 weeks in Spring 2020 11. 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 Blood cxs + strep constellatus and E.coli. ALEJANDRA negative for endocarditis. 12. Pacemaker placed on December 2018 secondary to chronotropic incompetence. Patient had a very poor heart rate response to exercise. Echo from May 2022 was WNL 50-55%. 13. Generalized fatigue: Hgb and TSH WNL. Testosterone levels checked as below: Test Name Result Units Range --------- ------ ----- ----- TESTBIO 71.4 L ng/dL 110.0 - 575.0 SEXHORM 44 nmol/L 22 - 77 ALBUMIN (PB-sendout) 3.9 g/dL 3.6 - 5.1 FR CLEO 39.8 L pg/mL 46.0 - 224.0 TESTOSTERONE, TOTAL 379 ng/dL 250 - 1100 Saw amber but not thought to be concerning and did not decide to start replacement due to h/o DVT. 14. Alternating diarrhea with constipation: S/s are better. I had referred to GI. Appreciate input as below: Stool lactoferrin is positive. Pancreatic elastase is pending. Cdiff negative. Underwent colonoscopy (jun 2024) that showed, DIAGNOSIS: TERMINAL ILEUM, BIOPSY: NO PATHOLOGIC DIAGNOSIS COLON, RANDOM, BIOPSY: MINIMAL HISTOLOGICAL CHANGES COLON, ASCENDING, POLYPS X2, BIOPSY: TUBULAR ADNEOMAS COLON, TATTOO SITE POLYP, BIOPSY: TUBULAR ADENOMA COLON, TRANSVERSE, POLYP, BIOPSY: FOCAL HYPERPLASTIC CHANGES To be repeated in December 2024. 15. Anemia due to CKD: Hgb stable. No need for ANNIKA. RTC: 6 months. /charly/ Sri Winters MD STAFF PHYSICIAN - NEPHROLOGY Signed: 10/08/2024 14:52 S[facility] WINTERS [facility]
--- OUTSIDE RECORDS SUMMARY | 2024-11-22 05:00 | XMS_ITS | Encounter Summary ---
Author Name [facility] [place] [facility] [place] [facility] [place] Address [address] [place] [address] Care Team Providers Care [employer] Porter Name Role Phone HELEN MATTHEWS Primary Care [...] PART A Feb 09, 2019 PART A [id number] ANA GANNON EPH PATIENT MEDICARE (WNR) MEDICARE (M) PART B Feb 09, 2019 PART B [id number] ANA GANNON EPH PATIENT MEDICARE (WNR) MEDICARE (M) PART A Feb 09, 2019 PART A [id number] ANA GANNON EPH PATIENT MEDICARE (WNR) MEDICARE (M) PART B Feb 09, 2019 PART B [id number] ANA GANNON PATIENT MEDICARE (WNR) MEDICARE (M) PART A Feb 09, 2019 PART A [id number] ANA GANNON EPH PATIENT MEDICARE (WNR) MEDICARE (M) PART B Feb 09, 2019 PART B [id number] ANA GANNON PATIENT MEDICARE PART D (WNR) MEDICARE (M) PART D Sep 11, 2019 PART D [id number] ANA GANNON PATIENT Selected Encounter This section includes the information on record at [place] for the Encounter. Date/Time Encounter Type Encounter Description Reason Provider Source Nov 22, 2024 10:00 AM OFFICE O/P EST MOD 30 MIN PULMONARY/CHEST ICD-10-CM R06.00 Dyspnea, unspecified DEMIDENKO,AUBRIE NA IHE Encounter Template Text not used by [place] Assessments - Encounter Diagnoses This section includes the primary and secondary diagnoses documented for the Encounter. Date/Time Primary/Secondary Diagnosis Diagnosis Name Provider Source Nov 22, 2024 10:33 AM PRIMARY Dyspnea, unspecified DEMIDENKO,AUBRIE NA [facility] Nov 22, 2024 10:33 AM SECONDARY Overweight DEMIDENKO,AUBRIE NA [facility] Nov 22, 2024 10:33 AM SECONDARY Personal history of COVID-19 DEMIDENKO,AUBRIE NA [facility] Nov 22, 2024 10:33 AM SECONDARY Pulmonary hypertension, unspecified DEMIDENKO,AUBRIE NA [facility] Nov 22, 2024 10:33 AM SECONDARY Sleep apnea, unspecified DEMIDENKO,AUBRIE NA [facility] Plan of Treatment: Future Appointments (+ 6 months) and Future Tests (+/- 45 days) The Plan of Treatment section includes future care activities for the patient from all [place] treatmentfacilities. This section includes future appointments and future orders which are active, pending or scheduled. Future Appointments This section includes appointments that were scheduled to occur 6 months from the date of the Encounter, up to a maximum of 20 appointments. The data comes from all [place] treatment facilities. Appointment Date/Time Appointment Type Appointme nt Facility Name Nov 26, 2024 02:00 PM [facility] Dec 12, 2024 09:00 AM [facility] Dec 26, 2024 12:45 PM [facility] - [facility]INE [facility] Dec 26, 2024 01:00 PM [facility] - [facility] Dec 27, 2024 09:56 AM [facility] - MED[facility]INE [facility] Dec 31, 2024 10:00 AM [facility] January 30, 2025 10:00 AM [facility] February 06, 2025 10:00 AM [facility] - [facility]INE [facility] Mar 06, 2025 10:00 AM [facility] Mar 18, 2025 11:00 AM [facility] Mar 25, 2025 01:00 PM [facility] Mar 27, 2025 12:15 PM [facility] - [facility]INE [facility] Mar 27, 2025 12:30 PM [facility] - MEDICINE [facility] Apr 07, 2025 08:30 AM [facility] Apr 10, 2025 10:00 AM [facility] Apr 22, 2025 11:00 AM [facility] May 19, 2025 12:15 PM [facility] - [facility]INE [facility] Lab Results: +/- 30 days of the encounter This section includes the Chemistry and Hematology Lab Results on record with [place] for the patient. Radiology Reports and Pathology Reports are provided separately, in subsequent sections. Lab Results This section contains the Chemistry/Hematology Results that were resulted 30 days before or 30 daysafter the date of the Encounter. Date/Time Source Result Type Result - Unit Interpretation Reference Range Specimen Type Comment Dec 04, 2024 09:04 AM [facility] HGA1C BLOOD Specimen Type: BLOOD No comment entered. Ordering Provider: FRANCISCO DAILY Report Released Date/Time: Sep 27, 2024 12:13 PM Reporting Lab: [facility] [place] [id number] [facility] [address] Performing Lab: [address] [address] HGA1C 7.5 H 4.0-6.0 Dec 04, 2024 09:04 AM [facility] TACROLIMUS (ST[facility]-PB) BLOOD Specimen Type: BLOO D No comment entered. Ordering Provider: FRANCISCO DAILY Report Released Date/Time: Sep 27, 2024 12:13 PM Reporting Lab: [address] [address] Performing Lab: [address] [address] TACROLIMUS (STL-PB) 3.4 ng/mL Dec 04, 2024 09:04 AM [facility] RENAL PANEL PLASMA Specimen Type: PLASM A Comment: No hemolysis noted. Ordering Provider: FRANCISCO DAILY Report Released Date/Time: Sep 27, 2024 12:13 PM Reporting Lab: [address] [address] Performing Lab: [address] [address] CREATININE 1.50 mg/dL H 0.7-1.3 UREA NITROGEN 26.4 mg/dL H 9.0-25.0 GLUCOSE 141 mg/dL H 72-99 SODIUM 137 meq/L 136-145 POTASSIUM 4.7 meq/L 3.5-5 CHLORIDE 109 meq/L H 98-107 CARBON DIOXIDE 18 meq/L L 22-31 CALCIUM 8.9 mg/dL 8.4-10.4 PHOSPHOROUS 3.2 mg/dL 2.3-4.7 ALBUMIN 3.5 g/dL 3.4-5 EGFR (CKD-EPI 2020) 49.8 >60 Dec 04, 2024 09:04 AM [facility] CBC BLOOD Specimen Type: BLOOD No comment entered. Ordering Provider: FRANCISCO DAILY Report Released Date/Time: Sep 27, 2024 12:13 PM Reporting Lab: [address] [address] Performing Lab: [facility] [address] [facility] [address] WBC 5.7 10*3/uL 3.6-11.2 RBC 3.87 10*6/uL L 4.10-5.70 HGB 11.7 g/dL L 13.1-16.8 HCT 34.8 L 38.2-48.4 MCV 89.9 fL 80.0-100.0 MCH 30.2 pg 27.0-34.0 MCHC 33.6 g/dL 33.0-36.0 PLT 181 10*3/uL 150-400 MPV 10.2 fL 7.5-11.2 RDW 13.6 11.8-15.1 LYMPHOCYTES, AUTO % 23 MONOCYTES, AUTO % 8 NEUTROPHILS, AUTO % 62 EOSINOPHILS, AUTO % 5 BASOPHILS, AUTO % 1 LYMPHOCYTES, ABSOLUTE 1.33 10*3/uL 0.77- 4.50 MONOCYTES, ABSOLUTE 0.48 10*3/uL 0.19-0. 80 NEUTROPHILS, ABSOLUTE 3.52 10*3/uL 2.10- 8.00 EOSINOPHILS, ABSOLUTE 0.28 10*3/uL 0.00- 0.60 BASOPHILS, ABSOLUTE 0.07 10*3/uL 0.00-0. 20 Nov 08, 2024 08:52 AM [facility] TACROLIMUS (ST[facility]-PB) BLOOD Specimen Type: BLOO D No comment entered. Ordering Provider: FRANCISCO DAILY Report Released Date/Time: Sep 27, 2024 12:13 PM Reporting Lab: [place] [address] [facility] [facility] [address] Performing Lab: [place] [address] [address] [facility] [address] TACROLIMUS (ST[facility]-PB) 6.2 ng/mL Nov 08, 2024 08:52 AM [facility] RENAL PANEL PLASMA Specimen Type: PLASM A Comment: No hemolysis noted. Ordering Provider: FRANCISCO DAILY Report Released Date/Time: Sep 27, 2024 12:13 PM Reporting Lab: [address] [address] Performing Lab: [address] [address] CREATININE 2.13 mg/dL H 0.7-1.3 UREA NITROGEN 35.8 mg/dL H 9.0-25.0 GLUCOSE 147 mg/dL H 72-99 SODIUM 138 meq/L 136-145 POTASSIUM 4.5 meq/L 3.5-5 CHLORIDE 110 meq/L H 98-107 CARBON DIOXIDE 19 meq/L L 22-31 CALCIUM 9.1 mg/dL 8.4-10.4 PHOSPHOROUS 3.6 mg/dL 2.3-4.7 ALBUMIN 3.4 g/dL 3.4-5 EGFR (CKD-EPI 2020) 32.7 >60 Nov 08, 2024 08:52 AM [facility] URINALYSIS (STL-PB) URINE Specimen Type: URIN E No comment entered. Ordering Provider: FRANCISCO DAILY Report Released Date/Time: Sep 27, 2024 12:13 PM Reporting Lab: [address] [address] Performing Lab: [address] [address] URINE COLOR Light-Yellow Yellow U.BILIRUBIN Negative mg/dL Negative U.PH 5.5 5.0-8.0 URINE WBC/HPF 1 /[HPF] 0-5 APPEARANCE Clear Clear U.NITRITE Negative mg/dL Negative MUCUS RARE /[LPF] Negative-Rare HYALINE CASTS 9 /[LPF] 0-5 U.SPERM RARE /[HPF] Negative URN.GLUCOSE 30 mg/dL H Negative URN.PROTEIN 30 mg/dL H URN.UROBILINOGEN Normal mg/dL Normal URN.BLOOD Negative mg/dL Negative-Trace URN.KETONES Negative mg/dL Negative-Trac e URN.LEUK.EST. Negative mg/dL Negative-Tr malu URN.SPECIFIC GRAVITY 1.019 Nov 08, 2024 08:52 AM [facility] CBC BLOOD Specimen Type: BLOOD No comment entered. Ordering Provider: FRANCISCO DAILY Report Released Date/Time: Sep 27, 2024 12:13 PM Reporting Lab: [address] [place] [address] Performing Lab: [facility] [address] [facility] [address] WBC 5.6 10*3/uL 3.6-11.2 RBC 4.01 10*6/uL L 4.10-5.70 HGB 12.3 g/dL L 13.1-16.8 HCT 36.0 L 38.2-48.4 MCV 89.8 fL 80.0-100.0 MCH 30.7 pg 27.0-34.0 MCHC 34.2 g/dL 33.0-36.0 PLT 163 10*3/uL 150-400 MPV 10.6 fL 7.5-11.2 RDW 12.7 11.8-15.1 LYMPHOCYTES, AUTO % 22 MONOCYTES, AUTO % 13 NEUTROPHILS, AUTO % 62 EOSINOPHILS, AUTO % 2 BASOPHILS, AUTO % 1 LYMPHOCYTES, ABSOLUTE 1.20 10*3/uL 0.77- 4.50 MONOCYTES, ABSOLUTE 0.71 10*3/uL 0.19-0. 80 NEUTROPHILS, ABSOLUTE 3.44 10*3/uL 2.10- 8.00 EOSINOPHILS, ABSOLUTE 0.13 10*3/uL 0.00- 0.60 BASOPHILS, ABSOLUTE 0.07 10*3/uL 0.00-0. 20 Vital Signs: All taken on the encounter date This section contains inpatient and outpatient Vital Signs collected on the date of the Encounter. Date/Time Temperature Pulse Blood Pressure Respiratory Rate SP02 Pain Height Weight Body Mass Index Source Nov 22, 2024 09:54 AM 97.3 72 139/66 16 96 0 213.7 30 [facility] Social History: Smoking Status (Most current) and Tobacco Use (All prior to encounter date) This section includes the most current, and the historical, smoking and tobacco- related health factors from the [place] facility where the Encounter took place. Current Smoking Status This section includes the most current smoking, or tobacco-related health factor, from the [place] facility where the Encounter took place. Date/Time Current Smoking Status Comment Facil [facility] Apr 12, 2024 02:09 PM VA-TOBACCO NEVER USED [facility] Tobacco Use History This section includes a history of the smoking, or tobacco-related health factors, that were collected on or before the date of the Encounter. The data comes from the [place] facility where the Encounter took place. Date/Time Smoking Status/Tobacco Use Comment F acility Nov 07, 2022 01:35 PM VA-TOBACCO NEVER USED [facility] Mar 17, 2021 07:44 PM ORYX ADMIT TOBACCO SCREEN NO [facility] Dec 18, 2020 11:14 PM VA-TOBACCO NEVER USED [facility] Dec 18, 2020 08:23 PM ORYX ADMIT TOBACCO SCREEN NO [facility] Nov 14, 2006 01:52 PM LIFETIME NON-USER OF TOBACCO [facility] Nov 22, 2005 02:20 PM LIFETIME NON-TOBACCO USER [facility] Dec 08, 2004 01:37 PM LIFETIME NON-TOBACCO USER [facility] Jul 28, 2004 01:13 PM LIFETIME NON-TOBACCO USER [facility] Jul 09, 2003 01:05 PM LIFETIME NON-TOBACCO USER [facility] Jun 26, 2002 02:05 PM LIFETIME NON-TOBACCO USER [facility] May 23, 2001 01:12 PM LIFETIME NON-TOBACCO USER [facility] Jun 14, 2000 01:24 PM LIFETIME NON-TOBACCO USER [facility] Encounter Notes: All associated encounter notes This section contains the clinical notes associated to the Encounter. Date/Time Encounter Note(s) Provider Source Nov 22, 2024 10:12 AM PULMONARY OUTPATIE NT NOTE: LOCAL TITLE: PULMONARY OUTPATIENT FOLLOW UP [facility] STANDARD TITLE: PULMONARY OUTPATIENT NOTE DATE OF NOTE: NOV 22, 2024@10:12 ENTRY DATE: NOV 22, 2024@10:12:17 AUTHOR: THI GAN EXP COSIGNER: URGENCY: STATUS: COMPLETED 69 year old MALE for Pulmonary Clinic follow up visit on 11/22/24 10:00. CHIEF COMPLAINT 3 month follow up primarily for new pulmonary [...] on May 04, 2013. Mr. Crespo reports improved dyspnea. He reports cough only due to tickles in the thtroat. He reprts allergy symptoms in fall. He reports improved shortness of breath at rest and dyspnea with exertion. He has COVID infection recently manifested by cough, back at baseline. He reports vasomotor rhinits. He is using CPAP every night. 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 Eyes.....................Neg ative for BLURRED VISION/VISUAL CHANGES. Ears/Nose/Mouth/Throat...Neg ative for HEARING CHANGES/SINUS CONGESTION, OR SORE THROAT. Cardiovascular...........Neg ative for CHEST PAIN/PALPITATIONS. Respiratory..............Neg ative for COUGH/WHEEZING. Gastrointestinal.........Neg ative for DIARRHEA/CONSTIPATION/NAUSEA /VOMITING/ABDOMINAL PAIN/MELENA Genitourinary............Neg ative for DYSURIA/HESITANCY/URGENCY/IN CONTINENCE. Muscular.................Neg ative for CHANGES STRENGTH/JOINT PAIN, OR SWELLING. Integumentary............Neg ative for RASH/HIVES/BRUISING/DISCOLOR ATION. Neurological.............Neg ative for LOC/LIGHTHEADEDNESS/DIZZINES S/FOCAL WEAKNESS,OR PARESTHESIA Endocrine................Neg ative for GOITER/LETHARGY/HEAT - COLD INTOLERANCE. Hematologic/Lymphatic....Neg ative for PALLOR/SWELLING. Allergies/Immune.........Neg ative FOR CHANGE. Psychological.Negative for DEPRESSION/ANXIETY/MOOD CHANGES. PAST PULMONARY/MEDICAL HISTORY No hospitalization or ER visit for respiratory problem. Lifelong non-smoker. 1) Diabetic nephropathy (SNOMED CT 606995201) 2) Ulcer of lower Limb, unspecified (ICD-9-CM 707.10) 3) Erectile dysfunction due to diabetes mellitus (SNOMED CT 012000039) 4) Anemia in Chronic Kidney Disease (ICD-9-CM 285.21) 5) HTN - Hypertension (SNOMED CT 46317814) 6) GERD * (ICD-9-CM 530.81) 7) Acidosis, metabolic NEC (ICD-9-CM 276.2) 8) Diabetic nephropathy (SNOMED CT 341104530) 9) Hypertensive chronic kidney disease, unspecified, with chronic kidney disease St 10) History of - kidney recipient (SNOMED CT 165102423) 11) Other Fluid Overload (ICD-9-CM 276.69) 12) Anticoagulant effect 13) Insulin pump present 14) Sinus bradycardia 15) Permanent cardiac pacemaker 16) Therapeutic drug effect 17) Acute osteomyelitis of foot 18) History of venous thrombosis 19) Postthrombotic syndrome 20) Sleep apnea 21) Lack of exercise 22) Coronary artery disease 23) Osteopenia 24) Patent foramen ovale 25) Chronotropic incompetence IM - IMMUNIZATIONS ADMINISTERED Immunization Series Date Facility Reaction Info COVID-19 (MODERNA), MRNA, LNP-S,* 1 05/31/2022 [facility] <[facility]> COVID-19 ([facility]), MRNA, LNP-S, * 3 05/08/2021 [facility] COVID-19 ([facility]), MRNA, LNP-S, * 1 05/01/2021 [facility] COVID-19 (PFIZER), MRNA, LNP-S, * 2 10/22/2020 [facility] <C> COVID-19 (PFIZER), MRNA, LNP-S, * 1 10/01/2020 [facility]* <C> COVID-19 (PFIZER), MRNA, LNP-S, * 1 11/01/2021 [facility] COVID-19 (P[facility]), MRNA, LNP-S, * 07/18/2024 [facility]* COVID-19 (PFIZER), MRNA, LNP-S, * 3 06/16/2023 [facility] INFLUENZA (HISTORICAL) 06/30/2004 [facility]* INFLUENZA (HISTORICAL) 07/11/2001 [facility]* INFLUENZA (HISTORICAL) 07/04/1996 [facility]* INFLUENZA, [...] 06/18/2012 [facility]* INFLUENZA, UNSPECIFIED FORMULATI* 06/16/2011 [facility] INFLUENZA, UNSPECIFIED FORMULATI* 06/18/2010 [facility]* INFLUENZA, UNSPECIFIED FORMULATI* 06/29/2009 Dr mijares* INFLUENZA, UNSPECIFIED FORMULATI* 07/[facility]/2008 [facility]> [facility]FLUEN[facility], UNSPECIFIED FORMULATI* 07/03/2007 [facility] INFLUENZA, UNSPECIFIED FORMULATI* 08/25/2006 [facility]* INFLUENZA, UNSPECIFIED FORMULATI* 07/05/2005 [facility]* INFLUENZA, UNSPECIFIED FORMULATI* 06/30/2004 [facility]* INFLUENZA, UNSPECIFIED FORMULATI* 07/16/2002 [facility]* INFLUENZA, UNSPECIFIED FORMULATI* 07/11/2001 [facility]* PNEUMOCOCCAL CONJUGATE PCV 13 05/12/2015 MA [...] AFTER COLESTIPOL) Indication: BILE SALT DIARRHEA 6) GLUCOSE 4GM CHEW TAB CHEW AND SWALLOW FOUR TABLETS BY MOUTH ACTIVE NEEDED REPEAT DOSE IF HYPOGLYCEMIA CONTINUES 15 MINUTES AFTER THE FIRST DOSE. Indication: FOR LOW BLOOD SUGAR 7) GLUCOSE SENSOR (4) GUARDIAN MMT-7040 USE 1 SENSOR UNDER THE ACTIVE SKIN EVERY WEEK Indication: FOR BLOOD SUGAR MONITORING 8) LISINOPRIL 40MG TAB TAKE ONE TABLET BY MOUTH ONCE A DAY FOR ACTIVE HEART OR BLOOD PRESSURE 9) METOPROLOL TARTRATE 100MG TAB TAKE ONE TABLET BY MOUTH TWICE ACTIVE A DAY FOR HEART/BLOOD PRESSURE. TAKE WITH OR IMMEDIATELY FOLLOWING FOOD. NEW DOSE 10) OMEPRAZOLE 40MG EC CAP TAKE ONE CAPSULE BY MOUTH EVERY ACTIVE MORNING BEFORE A MEAL TO LOWER STOMACH ACID. TAKE 30 MINUTES PRIOR TO FOOD. 11) PREDNISONE 5MG TAB TAKE ONE TABLET BY MOUTH EVERY MORNING ACTIVE WITH FOOD 12) RESERVOIR,MINIMED #MMT-332A USE 1 RESERVOIR EVERY THREE ACTIVE (3) DAYS WITH INSULIN PUMP Indication: FOR DIABETES 13) SET,INFUSION MINIMED #MMT-396 USE 1 SET FOR UNDER THE SKIN ACTIVE EVERY THREE (3) DAYS TO BE USED WITH INSULIN PUMP. Indication: FOR INFUSION SET 14) SODIUM BICARBONATE 650MG TAB TAKE TWO TABLETS BY MOUTH TWICE ACTIVE A DAY 15) TACROLIMUS 1MG CAP TAKE TWO CAPSULES BY MOUTH EVERY MORNING ACTIVE AND TAKE ONE CAPSULE EVERY EVENING TO PREVENT TRANSPLANT REJECTION 16) TAMSULOSIN HCL 0.4MG CAP TAKE TWO CAPSULES BY MOUTH EVERY ACTIVE EVENING APPROXIMATELY 30 MINUTES AFTER THE SAME MEAL EACH DAY (FOR PROSTATE) Indication: FOR BENIGN PROSTATIC HYPERPLASIA MEDICATION NOTES Prednisone 5 mg daily s/p kidney transplant Tacrolimus 2 mg AM and 1 mg gHS Never use inhalers or suppl. O2 CPAP every night ALLERGIES MORPHINE PHYSICAL EXAMINATION Vital Signs: Temperature: 97.3 F [36.3 C] (11/22/2024 09:54) Blood Pressure: 139/66 (11/22/2024 09:54) Pulse: 72 (11/22/2024 09:54) Respirations: 16 (11/22/2024 09:54) Pain: 0 (11/22/2024 09:54) Patient Height:71 in [180.3 cm] (10/04/2024 08:03) Patient Weight:213.7 lb [96.93 kg] (11/22/2024 09:54) BMI: 29.9 O2 saturation: 96% (11/22/2024 09:54) on RA General: NAD, breathing comfortably at rest on room air, well nourished, well developed. HEENT: No trauma, normal conjunctiva, ears, nasal mucosa, sinus palpation, and pharynx, PERRL, Neck: Supple, trachea midline, no JVD, thyromegaly, adenopathy. Heart: S1S2, regular rhythm without murmur, rub, gallop, no edema bilaterally, pulses 2+/rad Lungs: CTAB, no wheezing even with forced expiration. Abdomen: Bowel sounds present, soft, not distended, not tender, no hepatosplenomegaly. Extremities: Good pulses, no clubbing, cyanosis, edema. Skin: No rashes or lesions. MSK: normal gait, YI Neurologic: AoX4, responds appropriately, BOOGIE, CN II-XII grossly intact . SELECTED RESULTS REVIEWED Stress test 06/17/2024. ECHO 05/21/2024. PULMONARY VENTILATION AND PERFUSION for pulmonary emboli 09/10/2024 negative. CXR 09/10/2024: FINDINGS: No cardiomegaly. Atrioventricular leads in stable position. No mediastinal lymphadenopathy. Mild old granulomatous disease stable since April 2021. No pulmonary edema, consolidation, pneumothorax or effusion. Stable bony thorax, with no other new development since the prior chest x-ray. Right heart catherization 10/04/2024: -Mild, post-capillary pulmonary hypertension with mean PA: 31 mmHg and PCWP: 19mmHg -Elevated right and left filling pressures IMPRESSION/RECOMMENDATIONS 1. Dyspnea, multifactorial possible due to deconditioning, obesity, cardiac problem right to left shunt with Valsalva only (10-20 bubbles/frame), anemia of chronic disease, or less likely low DLCO, pulmonary hypertension. -- We discuss his respiratory problem and our approach to management. -- Review PFT, Stress test 06/17/2024. Non-ischemic ECG stress portion. Poor functional capacity, V/Q test neg for PE, ECHO 05/21/2024 + right to left shunt, RHC mild post-capillary pHTN with elevated right and left filling pressure. All above dx test indicate cardiac origin of dyspnea. Will follow up with csr and cognos architect in the [place]. -- Not a candidate for ClassPass, completed CARP FATEMEH last year successfully, long [...] or PFT. -- We discuss dx of post-capillary pulmonary hypertension. -- No needs for supplemental O2. -- Use CPAP with every sleep. -- Encourage maintain healthy weight. -- Encouraged to exercise but patient stated that his csr recommended against of exercise. Will discuss with cardiology. -- Encourage to monitor volume status. RTC as needed. Plan of care has been discussed with who verbalizes understanding and is in agreement with the plan of care. Vet was advised to call or go to the nearest health facility if any worsening of respiratory symptoms like Chest pain, hemoptysis or SOB. Patient was instructed to keep all scheduled appointments and contact nurse practitioner if any additional problems occur after this appointment. /charly/ ROCKY PARKER PULMONARY ANP Signed: 11/23/2024 21:52 [facility]
--- OUTSIDE RECORDS SUMMARY | 2024-12-12 04:00 | XMS_ITS | Encounter Summary ---
Author Name [facility] Address [address] [place] [address] Care Team Providers Care Board Certified Arts Therapist Name Role Phone HELEN MATTHEWS Primary Care [...] PART A Feb 09, 2019 PART A [id number] ANA GANNON EPH PATIENT MEDICARE (WNR) MEDICARE (M) PART B Feb 09, 2019 PART B [id number] ANA GANNON EPH PATIENT MEDICARE (WNR) MEDICARE (M) PART A Feb 09, 2019 PART A [id number] ANA GANNON EPH PATIENT MEDICARE (WNR) MEDICARE (M) PART B Feb 09, 2019 PART B [id number] ANA GANNON EPH PATIENT MEDICARE (WNR) MEDICARE (M) PART A Feb 09, 2019 PART A [id number] [phone] ANA GANNON EPH PATIENT MEDICARE (WNR) MEDICARE (M) PART B Feb 09, 2019 PART B [id number] ANA GANNON EPH PATIENT MEDICARE PART D (WNR) MEDICARE (M) PART D Sep 11, 2019 PART D [id number] ANA GANNON PATIENT Selected Encounter This section includes the information on record at [place] for the Encounter. Date/Time Encounter Type Encounter Description Reason Provider Source Dec 12, 2024 09:00 AM OFFICE O/P EST [place] 40 MIN ENDOCRINOLOGY ICD-10-CM E10.8 Type 1 diabetes mellitus with unspecified complications STEFANIE YEUNG Suzette Encounter Template Text not used by [place] Assessments - Encounter Diagnoses This section includes the primary and secondary diagnoses documented for the Encounter. Date/Time Primary/Secondary Diagnosis Diagnosis Name Provider Source Dec 12, 2024 09:32 AM PRIMARY Type 1 diabetes mellitus with unspecified complications STEFANIE YEUNG [facility] Dec 12, 2024 09:32 AM SECONDARY Atherosclerosis of CABG w/o angina pectoris [facility] Dec 12, 2024 09:32 AM SECONDARY Diabetes due to undrl cond w diabetic chronic kidney disease DUSTINSTEFANIE [facility] Dec 12, 2024 09:32 AM SECONDARY Disorder of bone density and structure, unspecified STEFANIE YEUNG [facility] Dec 12, 2024 09:32 AM SECONDARY Hyp chr kidney disease w stage 5 chr kidney disease or ESRD STEFANIE YEUNG [facility] Dec 12, 2024 09:32 AM SECONDARY Other sleep apnea [facility] Dec 12, 2024 09:32 AM SECONDARY Presence of insulin pump (external) (internal) [facility] Plan of Treatment: Future Appointments (+ 6 months) and Future Tests (+/- 45 days) The Plan of Treatment section includes future care activities for the [facility] This section includes future appointments and future orders which are active, pending or scheduled. Future Appointments This section includes appointments that were scheduled to occur 6 months from the date of the Encounter, up to a maximum of 20 appointments. The data comes from all [place] treatment facilities. Appointment Date/Time Appointment Type Appointme nt Facility Name Dec 26, 2024 12:45 PM AMBULATORY - MEDICINE [facility] Dec 26, 2024 01:00 PM AMBULATORY - MEDICINE [facility] Dec 27, 2024 09:56 AM AMBULATORY - MEDICINE [facility] Dec 31, 2024 10:00 AM [facility] January 30, 2025 10:00 AM [facility] February 06, 2025 10:00 AM AMBULATORY MEDICINE [facility] Mar 06, 2025 10:00 AM [facility] Mar 18, 2025 11:00 AM [facility] Mar 25, 2025 01:00 PM [facility] Mar 27, 2025 12:15 PM AMBULATORY - MEDICINE [facility] Mar 27, 2025 12:30 PM AMBULATORY - MEDICINE [facility] Apr 07, 2025 08:30 AM [facility] Apr 10, 2025 10:00 AM [facility] - [facility]INE [facility] Apr 22, 2025 11:00 AM [facility] May 19, 2025 12:15 PM AMBULATORY - MEDICINE [facility] May 28, 2025 10:00 AM AMBULATORY - REHAB MEDICIN E [facility] May 30, 2025 10:00 AM [facility] Jun 12, 2025 09:30 AM AMBULATORY - MEDICINE [facility] Lab Results: +/- 30 days of the encounter This section includes the Chemistry and Hematology Lab Results on record with [place] for the patient. Radiology Reports and Pathology Reports are provided separately, in subsequent sections. Lab Results This section contains the Chemistry/Hematology Results that were resulted 30 days before or 30 daysafter the date of the Encounter. Date/Time Source Result Type Result - Unit Interpretation Reference Range Specimen Type Comment Dec 04, 2024 09:04 AM [facility] HGA1C BLOOD Specimen Type: BLOOD No comment entered. Ordering Provider: FRANCSICO WINTERS Report Released Date/Time: Sep 27, 2024 12:13 PM Reporting Lab: [facility] [address] [facility] [address] Performing Lab: [facility] [address] [place] [id number] HGA1C 7.5 H 4.0-6.0 Dec 04, 2024 09:04 AM [facility] TACROLIMUS (STL-PB) BLOOD Specimen Type: BLOO D No comment entered. Ordering Provider: FRANCISCO WINTERS Report Released Date/Time: Sep 27, 2024 12:13 PM Reporting Lab: [facility] [address] [facility] [phone] Performing Lab: [facility] [address] [facility] [phone] TACROLIMUS (STL-PB) 3.4 ng/mL Dec 04, 2024 09:04 AM [facility] RENAL PANEL PLASMA Specimen Type: PLASM A Comment: No hemolysis noted. Ordering Provider: FRANCISCO WINTERS Report Released Date/Time: Sep 27, 2024 12:13 PM Reporting Lab: [facility] [address] [facility] [phone] Performing Lab: [place] [id number] [facility] [phone] CREATININE 1.50 mg/dL H 0.7-1.3 UREA NITROGEN 26.4 mg/dL H 9.0-25.0 GLUCOSE 141 mg/dL H 72-99 SODIUM 137 meq/L 136-145 POTASSIUM 4.7 meq/L 3.5-5 CHLORIDE 109 meq/L H 98-107 CARBON DIOXIDE 18 meq/L L 22-31 CALCIUM 8.9 mg/dL 8.4-10.4 PHOSPHOROUS 3.2 mg/dL 2.3-4.7 ALBUMIN 3.5 g/dL 3.4-5 EGFR (CKD-EPI 2020) 49.8 >60 Dec 04, 2024 09:04 AM [facility] CBC BLOOD Specimen Type: BLOOD No comment entered. Ordering Provider: FRANCISCO WINTERS Report Released Date/Time: Sep 27, 2024 12:13 PM Reporting Lab: [facility] [address] [facility] [address] Performing Lab: [facility] [address] [facility] [phone] WBC 5.7 10*3/uL 3.6-11.2 RBC 3.87 10*6/uL [...] Pain Height Weight Body Mass Index Source Dec 12, 2024 09:00 AM 98 92 137/67 16 97 3 220.9 31 [facility] Social History: Smoking Status (Most current) and Tobacco Use (All prior to encounter date) This section includes the most current, and the historical, smoking and tobacco- related health factors from the [place] facility where the Encounter took place. Current Smoking Status This section includes the most current smoking, or tobacco-related health factor, from the [place] facility where the Encounter took place. Date/Time Current Smoking Status Comment Jg ity Apr 12, 2024 02:09 PM VA-TOBACCO NEVER USED [facility] Tobacco Use History This section includes a history of the smoking, or tobacco-related health factors, that were collected on or before the date of the Encounter. The data comes from the [place] facility where the Encounter took place. Date/Time Smoking Status/Tobacco Use Comment Thuy acility Nov 07, 2022 01:35 PM VA-TOBACCO NEVER USED [facility] Mar 17, 2021 07:44 PM ORYX ADMIT TOBACCO SCREEN NO [facility] Dec 18, 2020 11:14 PM VA-TOBACCO NEVER USED [facility] Dec 18, 2020 08:23 PM ORYX ADMIT TOBACCO SCREEN NO [facility] Nov 14, 2006 01:52 PM LIFETIME NON-USER OF TOBACCO [facility] Nov 22, 2005 02:20 PM LIFETIME NON-TOBACCO USER [facility] Dec 08, 2004 01:37 PM LIFETIME NON-TOBACCO USER [facility] Jul 28, 2004 01:13 PM LIFETIME NON-TOBACCO USER [facility] Jul 09, 2003 01:05 PM LIFETIME NON-TOBACCO USER [facility] Jun 26, 2002 02:05 PM LIFETIME NON-TOBACCO USER [facility] May 23, 2001 01:12 PM LIFETIME NON-TOBACCO USER [facility] Jun 14, 2000 01:24 PM LIFETIME NON-TOBACCO USER [facility] Radiology Reports: +/- 30 days of [...] the Encounter. The data comes from all [place] treatment facilities. Date/Time Radiology Report Provider Source Dec 27, 2024 10:13 AM RIBS UNILAT+CHEST 3 OR MORE VIEWS: JC GANNON [id number] M Exm Date: DEC 27, 2024@10:13 Req Phys: ALANA NOE Lisa Loc: -EMERGENCY DEPT 2ND SHIFT (R Img Loc: -MAIN RADIOLOGY SUITE Service: [facility], [facility] [address] [place] [address] (Case [id number] COMPLETE) RIBS UNILAT+CHEST 3 OR MORE VIEWS(RAD Series ) CPT:73446 Reason for Study: L SIDE RIB PAIN Clinical History: Report Status: Verified Date Reported: DEC 27, 2024 Date Verified: DEC 27, 2024 Leg Assembler E-Sig:/CHARLY/LUZ MARIA MICHAELS MD Report: PA chest radiograph in addition to AP and oblique views of the left ribs. Comparison: Chest radiograph dated 09/10/2024. Heart: No significant pathology. Left chest wall cardiac device with two subclavian approach leads terminating in the right atrium and right ventricle, unchanged. Lungs: No significant pathology. Mediastinum: No significant pathology Pulmonary vasculature: Within normal limits. Other: The visible bony structures appear intact specifically no displaced fracture of the left ribs is seen. Impression: No evidence of left-sided rib fracture. No acute disease. ILuz Maria, have reviewed the images and report and concur with these findings. Primary Interpreting Staff: LUZ MARIA MICHAELS MD, Radiologist (Leg Assembler) Primary Interpreting Resident: BRENTON PRESLEY, Resident Physician /LUZ MARIA [facility] Encounter Notes: All associated encounter notes This section contains the clinical notes associated to the Encounter. Date/Time Encounter Note(s) Provider Source Dec 12, 2024 09:28 AM PHARMACY NOTE: LOCAL TITLE: V15-CGM QUALIFICATION NOTE STANDARD TITLE: PHARMACY NOTE DATE OF NOTE: DEC 12, 2024@09:28 ENTRY DATE: DEC 12, 2024@09:28:26 AUTHOR: STEFANIE YEUNG EXP COSIGNER: URGENCY: STATUS: COMPLETED CGM Continuation CGM Product Selection List: Guardian 4 (For use with Medtronic 780G insulin pump only) /charly/ STEFANIE YEUNG MSN [facility]- ENDOCRINE NURSE PRACTITIONER Signed: 12/12/2024 09:38 STEFANIE YEUNG [facility] Dec 12, 2024 09:14 AM [facility]: LOCAL TITLE: ENDOCRINOLOGY OUTPATIENT FOLLOW UP [facility] STANDARD TITLE: ENDOCRINOLOGY OUTPATIENT NOTE DATE OF NOTE: DEC 12, 2024@09:14 ENTRY DATE: DEC 12, 2024@09:14:53 AUTHOR: STEFANIE YEUNG EXP COSIGNER: URGENCY: STATUS: COMPLETED HPI: JC GANNON is a 69 yo WHITE MALE PMH recurrent DVT's, diabetes C/B neuropathy, retinopathy, SP kidney transplant here for f/u on type 1 diabetes on insulin pump. last visit 06/2024, 01/2024, 09/2023, 04/2023, 02/2023, 11/2022, 06/2022, 03/2022, 01/2022, 10/2021 previously f/b Dr Whalen 2017 history: 10/2018 dx mod-severe MEDARDO at outside sleep clinic 11/27/2018 Patient was given a CPAP machine 12/19/2018 s/p dual chamber pacemaker implant f/b renal transplant team at [facility] also seeing Dr Winters [place] here still seeing Dr. Jeter Crusher Foreman at [facility] for diabetes S: stressed, wants to move to a condo after htey just finished paying off the house; has to be out by 12/22 got flu/COVID 10/2024 had a new pulmonary htn --recently discharged from pulmonary they feel its due to his heart f/b cardiology, got appt moved from february to december doing well on 780G medtronic with guardian 4 CGM, smart guard x 02/2024 no illness, hospitalizations Type DM 1 x 1978 He is wearing [...] act ins time 2 hrs Carelink report: Patient Name: Jc Gannon Exported By: Stefanie Yeung Exported from [facility]? Clinic: 12-12-2024, 9:32 AM Data sources: MiniMed? 780G, Guardian? 4 Sensor 30 days of available data from 05-15-2024 - 06-13-2024 Device Settings Carb ratio (g/U) Time Value 00:00:00: 6 11:30:00: 9 17:30:00: 6 SmartGuard? target: 120 mg/dL Active insulin time: 2.00 h Glucose overview Average sensor glucose: 171 mg/dL ? 58 mg/dL Glucose Management Indicator (GMI): 7.4% Coefficient of Variation (CV): 34% Time in range < 50 mg/dL: 0% 50 mg/dL - < 70 mg/dL: 0% 70 mg/dL - 180 mg/dL: 70% >180 mg/dL - 250 mg/dL: 21% >250 mg/dL: 9% Insulin per day Total daily dose: 41.8 U Bolus: 50% Bolus: 20.8 U Auto Correction: 35% Auto Correction: 7.2 U Basal: 50% Basal: 21 U Device usage Guardian? 4 Sensor: 55% 3 day(s) 21 hour(s) per week SmartGuard? use: 52% 3 day(s) 16 hour(s) per week Set change: Every 5.7 day(s) [place] change: Every 4.6 day(s) hypo-occasionally still has glucagon pen can use more glucose tablets --ordered took glucagon 10/2018 for BG in 30s hypoawareness: occasionally, +s/s <60 physical activity: unchanged not currently since he's packing up to move upper body strengthening with OYO machine/device used to row for lower body/cardio, feels he plateaued rowing machine 20 mins diet: 2-3 meals a day, reportedly eating same [address] 01/26/2023 eye exam: 07/2024 teleretinal, not good imaging? per note h/o proliferative diabetic retinopathy - has 2 outside eye providers he sees regularly due for DFE was followed by ophth oculopastics 03/2022 optom H/o Proliferative Diabetic Retinopathy OU Followed by [facility] q6 months - last seen 01/[address] Adan - general OMD q6 mo - last seen 08/2021 foot exam: 06/2024 MEDARDO wears CPAP SOCIAL hx: tobacco- none [...] (FOR PROSTATE) Indication: FOR BENIGN PROSTATIC HYPERPLASIA Allergies: MORPHINE PAST HISTORY: 1) Diabetic nephropathy (SNOMED CT 743047994) 2) Ulcer of lower Limb, unspecified (ICD-9-CM 707.10) 3) Erectile dysfunction due to diabetes mellitus (SNOMED CT 865299122) 4) Anemia in Chronic Kidney Disease (ICD-9-CM 285.21) 5) HTN - Hypertension (SNOMED CT 69310879) 6) GERD * (ICD-9-CM 530.81) 7) Acidosis, metabolic NEC (ICD-9-CM 276.2) 8) Diabetic nephropathy (SNOMED CT 049847777) 9) Hypertensive chronic kidney disease, unspecified, with chronic kidney disease St 10) History of - kidney recipient (SNOMED CT 434828334) 11) Other Fluid Overload (ICD-9-CM 276.69) 12) Anticoagulant effect 13) Insulin pump present 14) Sinus bradycardia 15) Permanent cardiac pacemaker 16) Therapeutic drug effect 17) Acute osteomyelitis of foot 18) History of venous thrombosis 19) Postthrombotic syndrome 20) Sleep apnea 21) Lack of exercise 22) Coronary artery disease 23) Osteopenia 24) Patent foramen ovale 25) Chronotropic incompetence PHYSICAL EXAM: Vital Signs- Temperature: 98 F [36.7 C] (12/12/2024 09:00) HR: 92 (12/12/2024 09:00) BP: Measurement DT BP 12/12/2024 09:00 137/67 11/22/2024 09:54 139/66 10/08/2024 14:11 143/66 Weight: 220.9 lb [100.20 kg] (12/12/2024 09:00) Patient Weight History - Last Four 1. 220.9 lbs. / 100.2 kg. on DEC 12, 2024@09:00:23 2. 213.7 lbs. / 96.9 kg. on NOV 22, 2024@09:54:48 3. 230.7 lbs. / 104.6 kg. on OCT 08, 2024@14:11:37 4. 227.0 lbs. / 103.0 kg. on OCT 04, 2024@08:03:19 BMI: 30.9 General: 69MALE NAD, WNWD HEENT: sclera anicteric LUNGS: CTAB, regular unlabored CVS: RRR, S1 S2, no S3 S4 or murmurs GI: obese +BS MOOD: appropriate, pleasant MILK BOTTLER: non focal LABS: SODIUM 137 mEq/L 12/04/2024 09:04 POTASSIUM 4.7 mEq/L 12/04/2024 09:04 CHLORIDE 109 H mEq/L 12/04/2024 09:04 UREA NITROGEN 26.4 H mg/dL 12/04/2024 09:04 CREATININE 1.50 H mg/dL 12/04/2024 09:04 CALCIUM 8.9 mg/dL 12/04/2024 09:04 CARBON DIOXIDE 18 L mEq/L 12/04/2024 09:04 GLUCOSE 141 H mg/dL 12/04/2024 09:04 EGFR (CKD-EPI 2020) 49.8 12/04/2024 09:04 Microalb/creat: CREATuF: 72.3 (09/28/23 08:49) M/CREAT: comment (02/21/23 10:34) MICRAL: <5.0 (02/21/23 10:34) No MICRAL/CREAT RATIO (STL) data found HGA1C 7.5 H % 12/04/2024 09:04 HGA1C 7.4 H % 09/19/2024 09:34 HGA1C 8.0 H % 06/21/2024 08:53 HGA1C 7.9 H % 03/21/2024 09:34 HGA1C 8.1 H % 03/15/2024 00:00 Lipid Panel: TRIGLYCERIDE 68 mg/dL 09/19/2024 09:34 CHOLESTEROL 92 mg/dL 09/19/2024 09:34 HDL(New) 43 mg/dL 09/19/2024 09:34 CALCULATED LDL 35 mg/dL 09/19/2024 09:34 TSH 2.446 uIU/mL 02/03/2023 08:11 A/P: # DIABETES, type 1 +CKD s/p renal tx goal a1c <8% age, CKD, risk for hypos upgraded Medtronic 780G insulin pump with Guardian 4 02/2024 and SMARTGUARD was on 670G insulin pump with Guardian CGM 01/2020 w/ automode also f/b Dr Jeter at [facility] +hypounaware at times downloaded insulin pump in clinic smartguard 52%--still low time in range 70% --stable goal 50-70% for a1c goal <8% [...] care, f/b leg ulcer clinic Eye exam annually--f/b outside providers good on sugar tablets, test strips and syringes Plan: -no changes to pump settings change infusion set reservoir to 90 days renewed sensors reminded bolus for ALL carbs reviewed temporary [...] cellcept, prograf, prednisone 5mg daily f/b Nephrology needs renewal of iron supplements, alerting SANDOR morgna # [facility] #CAD LDL at goal 03/2024 on atorvastatin 10mg daily, Apixaban (recurrent DVTs), ct per PCP # osteopenia hx renal transplant --on prednisone, tacrolimus, cellcept f/b by outside and [place] renal DEXA 01/2018 Lumbar spine: Measured BMD [...] for osteoporosis Clinical History Reason for exam: Usp steroid use with historical height loss - [...] prevention -avoid smoking and excessive ETOH intake -repeat DEXA q2 years 05/2025 # MEDARDO dx'd 10/2018 wearing CPAP RTC 6 months I spent 40 minutes performing services for this patient: before, during and after the F2F visit today more than 50% of the provider's wtxt-[id number] visit time with a patient is spent in counseling or coordination of care /charly/ STEFANIE CONTE RN CHARGE- ENDOCRINE NURSE PRACTITIONER Signed: 12/12/2024 09:42 STEFANIE YEUNG [facility]
--- OUTSIDE RECORDS SUMMARY | 2024-12-26 08:00 | XMS_ITS | Encounter Summary ---
Author Name [facility] [place] [facility] [place] [facility] [facility] [place] Address [address] [place] [address] Care Team Providers Care Mash Tub Cooker Name Role Phone HELEN MATTHEWS Primary Care [...] PART A Feb 09, 2019 PART A [id number] ANA GANNON EPH PATIENT MEDICARE (WNR) MEDICARE (M) PART B Feb 09, 2019 PART B [id number] ANA GANNON EPH PATIENT MEDICARE (WNR) MEDICARE (M) PART A Feb 09, 2019 PART A [id number] [phone] ANA GANNON EPH PATIENT MEDICARE (WNR) MEDICARE (M) PART B Feb 09, 2019 PART B [id number] ANA GANNON EPH PATIENT MEDICARE (WNR) MEDICARE (M) PART B Feb 09, 2019 PART B [id number] ANA GANNON EPH PATIENT MEDICARE (WNR) MEDICARE (M) PART A Feb 09, 2019 PART A [id number] [phone] ANA GANNON EPH PATIENT MEDICARE PART D (WNR) MEDICARE (M) PART D Sep 11, 2019 PART D [id number] [phone] ANA GANNON PATIENT Selected Encounter This section includes the information on record at [place] for the Encounter. Date/Time Encounter Type Encounter Description Reason Provider Source Dec 26, 2024 01:00 PM OFFICE O/P EST MOD 30 MIN CARDIOLOGY ICD-10-CM R00.1 Bradycardia, unspecified DAVION SKINNER [facility] Encounter Template Text not used by [place] Assessments - Encounter Diagnoses This section includes the primary and secondary diagnoses documented for the Encounter. Date/Time Primary/Secondary Diagnosis Diagnosis Name Provider Source Dec 26, 2024 01:52 PM PRIMARY Bradycardia, unspecified DAVION SKINNER [facility] Dec 26, 2024 01:52 PM SECONDARY Atherosclerosis of CABG w/o angina pectoris [facility] Dec 26, 2024 01:52 PM SECONDARY watermaster (current) use of anticoagulants [facility] Dec 26, 2024 01:52 PM SECONDARY Mixed hyperlipidemia DAVION SKINNER [facility] Dec 26, 2024 01:52 PM SECONDARY Other sleep ap[facility] Dec 26, 2024 01:52 PM SECONDARY Patent foramen ovale [facility]ODYDAV[facility] Dec 26, 2024 01:52 PM SECONDARY Personal history of other venous thrombosis and embolism [facility] Dec 26, 2024 01:52 PM SECONDARY Presence of cardiac pacemaker [facility] Dec 26, 2024 01:52 PM SECONDARY Presence of insulin pump (external) (internal) DAVION SKINNER [facility] Plan of Treatment: Future Appointments (+ 6 months) and Future Tests (+/- 45 days) The Plan of Treatment section includes future care activities for the patient from [facility] [place] [facility] This section includes future appointments and future orders which are active, pending or scheduled. Future Appointments This section includes appointments that were scheduled to occur 6 months from the date of the Encounter, up to a maximum of 20 appointments. The data comes from all [place] treatment facilities. Appointment Date/Time Appointment Type Appointme nt Facility Name Dec 27, 2024 09:56 AM AMBULATORY - MEDICINE [facility] Dec 31, 2024 10:00 AM AMBULATORY - MEDICINE [facility] January 30, 2025 10:00 AM AMBULATORY MEDICINE [facility] February 06, 2025 10:00 AM AMBULATORY - MEDICINE [facility] Mar 06, 2025 10:00 AM AMBULATORY - MEDICINE [facility] Mar 18, 2025 11:00 AM AMBULATORY - MEDICINE [facility] Mar 25, 2025 01:00 PM AMBULATORY - MEDICINE [facility] Mar 27, 2025 12:15 PM AMBULATORY - MEDICINE [facility] Mar 27, 2025 12:30 PM AMBULATORY - MEDICINE [facility] Apr 07, 2025 08:30 AM AMBULATORY - MEDICINE [facility] Apr 10, 2025 10:00 AM [facility] Apr 22, 2025 11:00 AM AMBULATORY - MEDICINE [facility] May 19, 2025 12:15 PM AMBULATORY - MEDICINE [facility] May 28, 2025 10:00 AM AMBULATORY - REHAB MEDICIN E [facility] May 30, 2025 10:00 AM AMBULATORY - MEDICINE [facility] Jun 12, 2025 09:30 AM AMBULATORY - MEDICINE [facility] Lab Results: +/- 30 days of the encounter This section includes the Chemistry and Hematology Lab Results on record with [place] for the patient. Radiology Reports and Pathology Reports are provided separately, in subsequent sections. Lab Results This section contains the Chemistry/Hematology Results that were resulted 30 days before or 30 daysafter the date of the Encounter. Date/Time Source Result Type Result - Unit Interpretation Reference Range Specimen Type Comment January 13, 2025 08:22 AM [facility] TACROLIMUS (STL-PB) BLOOD Specimen Type: BLOOD No comment entered. Ordering Provider: FRANCISCO DAILY Report Released Date/Time: Sep 27, 2024 12:13 PM Reporting Lab: [place] [address] [facility] [phone] Performing Lab: [place] [address] [facility] [phone] TACROLIMUS (STL-PB) 6.5 ng/mL January 13, 2025 08:22 AM [facility] URINALYSIS (L-PB) URINE Specimen Type: URIN E No comment entered. Ordering Provider: FRANCISCO DAILY Report Released Date/Time: Sep 27, 2024 12:13 PM Reporting Lab: [place] [address] [facility] [place] [address] Performing Lab: [place] [address] [facility] [phone] URINE COLOR Light-Yellow Yellow U.BILIRUBIN Negative mg/dL Negative U.PH 6.0 5.0-8.0 APPEARANCE Clear Clear U.NITRITE Negative mg/dL Negative URN.GLUCOSE 150 mg/dL H Negative URN.PROTEIN Negative mg/dL URN.UROBILINOGEN Normal mg/dL Normal URN.BLOOD Negative mg/dL Negative-Trace URN.KETONES Negative mg/dL Negative-Trac e URN.LEUK.EST. Negative mg/dL Negative-Tr sam URN.SPECIFIC GRAVITY 1.014 January 13, 2025 08:22 AM [facility] RENAL PANEL PLASMA Specimen Type: PLASM A Comment: No hemolysis noted. Ordering Provider: FRANCISCO DAILY Report Released Date/Time: Sep 27, 2024 12:13 PM Reporting Lab: [place] [address] [facility] [place] [phone] Performing Lab: [place] [address] [place] [phone] CREATININE 1.64 mg/dL H 0.7-1.3 UREA NITROGEN 32.2 mg/dL H 9.0-25.0 GLUCOSE 120 mg/dL H 72-99 SODIUM 136 meq/L 136-145 POTASSIUM 4.9 meq/L 3.5-5 CHLORIDE 109 meq/L H 98-107 CARBON DIOXIDE 24 meq/L 22-31 CALCIUM 8.8 mg/dL 8.4-10.4 PHOSPHOROUS 4.2 mg/dL 2.3-4.7 ALBUMIN 3.5 g/dL 3.4-5 EGFR (CKD-EPI 2020) 44.7 >60 January 13, 2025 08:22 AM [facility] CBC BLOOD Specimen Type: BLOOD No comment entered. Ordering Provider: FRANCISCO DAILY Report Released Date/Time: Sep 27, 2024 12:13 PM Reporting Lab: [address] [address] Performing Lab: [address] [address] WBC 5.4 10*3/uL 3.6-11.2 RBC 4.06 10*6/uL L 4.10-5.70 HGB 12.4 g/dL L 13.1-16.8 HCT 37.5 L 38.2-48.4 MCV 92.4 fL 80.0-100.0 MCH 30.5 pg 27.0-34.0 MCHC 33.1 g/dL 33.0-36.0 PLT 163 10*3/uL 150-400 MPV 10.7 fL 7.5-11.2 RDW 13.2 11.8-15.1 LYMPHOCYTES, AUTO % 23 MONOCYTES, AUTO % 11 NEUTROPHILS, AUTO % 55 EOSINOPHILS, AUTO % 9 BASOPHILS, AUTO % 2 LYMPHOCYTES, ABSOLUTE 1.27 10*3/uL 0.77- 4.50 MONOCYTES, ABSOLUTE 0.62 10*3/uL 0.19-0. 80 NEUTROPHILS, ABSOLUTE 2.96 10*3/uL 2.10- 8.00 EOSINOPHILS, ABSOLUTE 0.47 10*3/uL 0.00- 0.60 BASOPHILS, ABSOLUTE 0.09 10*3/uL 0.00-0. 20 January 13, 2025 08:22 AM [facility] BASIC METABOLIC PANEL PLASMA Specimen Type: PL ASMA Comment: No hemolysis noted. Ordering Provider: DAVION SKINNER Report Released Date/Time: Dec 26, 2024 01:31 PM Reporting Lab: [facility] [address] [phone] Performing Lab: [address] [address] CREATININE 1.64 mg/dL H 0.7-1.3 UREA NITROGEN 32.2 mg/dL H 9.0-25.0 GLUCOSE 120 mg/dL H 72-99 SODIUM 136 meq/L 136-145 POTASSIUM 4.9 meq/L 3.5-5 CHLORIDE 109 meq/L H 98-107 CARBON DIOXIDE 24 meq/L 22-31 CALCIUM 8.8 mg/dL 8.4-10.4 EGFR (CKD-EPI 2020) 44.7 >60 Dec 04, 2024 09:04 AM [facility] HGA1C BLOOD Specimen Type: BLOOD No comment entered. Ordering Provider: FRANCISCO DAILY Report Released Date/Time: Sep 27, 2024 12:13 PM Reporting Lab: [facility] [address] [phone] Performing Lab: [address] [address] HGA1C 7.5 H 4.0-6.0 Dec 04, 2024 09:04 AM [facility] TACROLIMUS (STL-PB) BLOOD Specimen Type: BLOO D No comment entered. Ordering Provider: FRANCISCO DAILY Report Released Date/Time: Sep 27, 2024 12:13 PM Reporting Lab: [facility] [address] [place] [phone] Performing Lab: [address] [address] TACROLIMUS (STL-PB) 3.4 ng/mL Dec 04, 2024 09:04 AM [facility] RENAL PANEL PLASMA Specimen Type: PLASM A Comment: No hemolysis noted. Ordering Provider: FRANCISCO DAILY Report Released Date/Time: Sep 27, 2024 12:13 PM Reporting Lab: [facility] [address] [place] [phone] Performing Lab: [address] [phone] CREATININE 1.50 mg/dL H 0.7-1.3 UREA NITROGEN 26.4 mg/dL H 9.0-25.0 GLUCOSE 141 mg/dL H 72-99 SODIUM 137 meq/L 136-145 POTASSIUM 4.7 meq/L 3.5-5 CHLORIDE 109 meq/L H 98-107 CARBON DIOXIDE 18 meq/L L 22-31 CALCIUM 8.9 mg/dL 8.4-10.4 PHOSPHOROUS 3.2 mg/dL 2.3-4.7 ALBUMIN 3.5 g/dL 3.4-5 EGFR (CKD-EPI 2020) 49.8 >60 Dec 04, 2024 09:04 AM [facility] CBC BLOOD Specimen Type: BLOOD No comment entered. Ordering Provider: FRANCISCO DAILY Report Released Date/Time: Sep 27, 2024 12:13 PM Reporting Lab: [address] [address] Performing Lab: [address] [address] WBC 5.7 10*3/uL 3.6-11.2 RBC 3.87 10*6/uL [...] Height Weight Body Mass Index Source Dec 26, 2024 12:55 PM 97.1 74 110/63 18 96 5 216.1 30 [facility] Social History: Smoking Status (Most current) and Tobacco Use (All prior to encounter date) This section includes the most current, and the historical, smoking and tobacco- related health factors from the [place] facility where the Encounter took place. Current Smoking Status This section includes the most current smoking, or tobacco-related health factor, from the [place] facility where the Encounter took place. Date/Time Current Smoking Status Comment Jg crowe Apr 12, 2024 02:09 PM VA-TOBACCO NEVER USED [facility] Tobacco Use History This section includes a history of the smoking, or tobacco-related health factors, that were collected on or before the date of the Encounter. The data comes from the [place] facility where the Encounter took place. Date/Time Smoking Status/Tobacco Use Comment Thuy willett Nov 07, 2022 01:35 PM VA-TOBACCO NEVER USED [facility] Mar 17, 2021 07:44 PM ORYX ADMIT TOBACCO SCREEN NO [facility] Dec 18, 2020 11:14 PM VA-TOBACCO NEVER USED [facility] Dec 18, 2020 08:23 PM ORYX ADMIT TOBACCO SCREEN NO [facility] Nov 14, 2006 01:52 PM LIFETIME NON-USER OF TOBACCO [facility] Nov 22, 2005 02:20 PM LIFETIME NON-TOBACCO USER [facility] Dec 08, 2004 01:37 PM LIFETIME NON-TOBACCO USER [facility] Jul 28, 2004 01:13 PM LIFETIME NON-TOBACCO USER [facility] Jul 09, 2003 01:05 PM LIFETIME NON-TOBACCO USER [facility] Jun 26, 2002 02:05 PM LIFETIME NON-TOBACCO USER [facility] May 23, 2001 01:12 PM LIFETIME NON-TOBACCO USER [facility] Jun 14, 2000 01:24 PM LIFETIME NON-TOBACCO USER [facility] Radiology Reports: +/- 30 days of the [...] the Encounter. The data comes from all [facility] facilities. Date/Time Radiology Report Provider Source Dec 27, 2024 10:13 AM [facility] UNILAT+CHEST 3 OR MORE VIEWS: DAT GANNON Pritesh [id number] -[id number] M Ex Date: DEC 27, 2024@10:13 Req Phys: ALANA NOE Loc: -EMERGENCY DEPT 2ND SHIFT (R Img Loc: -MAIN RADIOLOGY SUITE Service: [address] [address] (Case [id number] COMPLETE) RI[facility] UNILAT+CHEST 3 OR MORE VIEWS(RAD Series ) CPT:70474 Reason for Study: L SIDE RIB PAIN Clinical History: Report Status: Verified Date Reported: DEC 27, 2024 Date Verified: DEC 27, 2024 Whipped Topping Mixer E-Sig:/ES/LUZ MARIA MICHAELS MD Report: PA chest radiograph [...] Interpreting Staff: LUZ MARIA MICHAELS MD, Radiologist (Whipped Topping Mixer) Primary Interpreting Resident: BRENTON PRESLEY, Resident Physician /LUZ MARIA SUH [facility] Encounter Notes: All associated encounter notes This section contains the clinical notes associated to the Encounter. Date/Time Encounter Note(s) Provider Source Dec 26, 2024 01:03 PM CARDIOLOGY OUTPATI ENT NOTE: LOCAL TITLE: CARDIOLOGY OUTPATIENT FOLLOW UP [facility] STANDARD TITLE: CARDIOLOGY OUTPATIENT NOTE DATE OF NOTE: DEC 26, 2024@13:03 ENTRY DATE: DEC 26, 2024@13:03:40 AUTHOR: DAVION SKINNER COSIGNER: URGENCY: STATUS: COMPLETED CARDIOLOGY OUTPATIENT FOLLOW UP [facility] Has ADDENDA Cardiology Outpatient Note [facility] CARDIOLOGY SERVICE: CARDIOLOGY NOTE REASON FOR VISIT: [...] MEDARDO using his CPAP, hypertension. Device check at our last visit showed several episodes of atrial fib, atrial [...] 5 mg twice daily for stroke prophylaxis. [id number] HTN, CAD, DMT2, age, CRD =5 [place] reported continued shortness of breath. He reported a syncopal episode couple months prior to our visit that coincided with the atrial fib episodes noted on July 05 for . There had been no episodes of syncope or atrial fib. Since July 06, He does see lymphedema clinic for the right lower leg swelling. Since our last visit reports RHC was completed showing mild pulmonary HTN, he has been discharged from pulmonary clinic. He also reports that he and his had COVID together since last seen. This has not helped his shortness of breath. He questions whether or not his PFO with the deoxygenated blood mixed in with his oxygenated blood causing him to be short of breath. Will table Question to structural heart. He also reports during his move he was trying to put a bed together with the headboard falling down on him causing some left lateral torso discomfort. On inspection he has a nickel sized lump on his left lateral chest. Left lower abdomen where his insulin pump was is very reddened with a large nodule the size of a walnut. He reports he has not shown this to anybody else. I will inform Rodney Gamal to this. He denies chest pain, denies fast or irregular heartbeats, he does have lower leg swelling reports taking his Bumex 1mg once a week. He did this on his own due to his kidney function. Creatinine noted to be 1.55 at last draw in October. He reports he is not use his CPAP because his bed is not completely set up, this won't happen until next week. Denies excessive bruising or bleeding, syncope or near syncope. Social hx: Denies smoking, excessive alcohol use, denies recreational drug use Family hx: Noncontributory ROS: 11 point review of systems completed with all pertinent information placed in HPI ACTIVE PROBLEMS: 1) Diabetic nephropathy (SNOMED CT 138710685) 2) Ulcer of lower Limb, unspecified (ICD-9-CM 707.10) 3) Erectile dysfunction due to diabetes mellitus (SNOMED CT 057966084) 4) Anemia in Chronic Kidney Disease (ICD-9-CM 285.21) 5) HTN - Hypertension (SNOMED CT 24057774) 6) GERD * (ICD-9-CM 530.81) 7) Acidosis, metabolic NEC (ICD-9-CM 276.2) 8) Diabetic nephropathy (SNOMED CT 169469597) 9) Hypertensive chronic kidney disease, unspecified, with chronic kidney disease St 10) History of - kidney recipient (SNOMED CT 966304694) 11) Other Fluid Overload (ICD-9-CM 276.69) 12) Anticoagulant effect 13) Insulin pump present 14) Sinus bradycardia 15) Permanent cardiac pacemaker 16) Therapeutic drug effect 17) Acute osteomyelitis of foot 18) History of venous thrombosis 19) Postthrombotic syndrome 20) Sleep apnea 21) Lack of exercise 22) Coronary artery disease 23) Osteopenia 24) Patent foramen ovale 25) Chronotropic incompetence ALLERGIES:MORPHINE ACTIVE MEDICATIONS: Active and Recently Outpatient [...] [id number] USE 1 SENSOR UNDER THE ACTIVE (S) SKIN EVERY WEEK Indication: FOR BLOOD SUGAR [...] (FOR PROSTATE) Indication: FOR BENIGN PROSTATIC HYPERPLASIA All cardiac medications listed above were reconciled [...] elevated pulmonary pressures. ALEJANDRA 03-24-2021 confirmed PFO. 06/27/2024 nuclear stress Impression: 1. Normal SPECT myocardial imaging without evidence of stress-induced ischemia. 2. Normal left ventricle contractility with LVEF of 82%. CORONARY ANGIOGRAPHY [place] Vessels Summary: Nonobstructive CAD Dominance: Right dominant [...] rPDA, rPLV branches. Mild luminal irregularities distally. HEART MONITORS:[employer] [place] PM last Download: Nov 20, 2024 00:51 no AHR or VHR noted since July 06, 2024 A paced 72% V Paced 0% LAST LABS: TSH: TSH 2.446 uIU/mL 02/03/2023 08:11 TRIGLYCERIDE 68 mg/dL 09/19/2024 09:34 CHOLESTEROL 92 mg/dL 09/19/2024 09:34 HDL(New) 43 mg/dL 09/19/2024 09:34 CALCULATED LDL 35 mg/dL 09/19/2024 09:34 HGA1C 7.5 H % 12/04/2024 09:04 Comprehensive Metabolic Panel Results: SODIUM 137 mEq/L 12/04/2024 09:04 POTASSIUM 4.7 mEq/L 12/04/2024 09:04 CHLORIDE 109 H mEq/L 12/04/2024 09:04 UREA NITROGEN 26.4 H mg/dL 12/04/2024 09:04 CREATININE 1.50 H mg/dL 12/04/2024 09:04 CALCIUM 8.9 mg/dL 12/04/2024 09:04 PROTEIN 6.0 g/dL 08/20/2024 08:21 ALBUMIN 3.5 g/dL 12/04/2024 09:04 ALKALINE PHOSPHATASE 79 U/L 08/20/2024 08:21 ALT/SGPT 20 U/L 08/20/2024 08:21 AST/SGOT 20 U/L 08/20/2024 08:21 TOTAL BILIRUBIN 0.5 mg/dL 08/20/2024 08:21 CARBON DIOXIDE 18 L mEq/L 12/04/2024 09:04 GLUCOSE 141 H mg/dL 12/04/2024 09:04 EGFR (CKD-EPI 2020) 49.8 12/04/2024 09:04 WBC 5.7 10*3/uL 12/04/2024 09:04 RBC 3.87 L 10*6/uL 12/04/2024 09:04 HGB 11.7 L g/dL 12/04/2024 09:04 HCT 34.8 L % 12/04/2024 09:04 MCV 89.9 fL 12/04/2024 09:04 MCH 30.2 pg 12/04/2024 09:04 MCHC 33.6 g/dL 12/04/2024 09:04 RDW 13.6 % 12/04/2024 09:04 PLT 181 10*3/uL 12/04/2024 09:04 MPV 10.2 fL 12/04/2024 09:04 NEUTROPHILS, AUTO % 62 % 12/04/2024 09:04 LYMPHOCYTES, AUTO % 23 % 12/04/2024 09:04 MONOCYTES, AUTO % 8 % 12/04/2024 09:04 EOSINOPHILS, AUTO % 5 % 12/04/2024 09:04 BASOPHILS, AUTO % 1 % 12/04/2024 09:04 NEUTROPHILS, ABSOLUTE 3.52 10*3/uL 12/04/2024 09:04 LYMPHOCYTES, ABSOLUTE 1.33 10*3/uL 12/04/2024 09:04 MONOCYTES, ABSOLUTE 0.48 10*3/uL 12/04/2024 09:04 EOSINOPHILS, ABSOLUTE 0.28 10*3/uL 12/04/2024 09:04 BASOPHILS, ABSOLUTE 0.07 10*3/uL 12/04/2024 09:[address]T FRACTION 3.8 % 04/01/2024 11:24 PHYSICAL ASSESSMENT GENERAL: well-mannered, well-groomed 69 yo male NECK: no JVD, no carotid bruit CARDIO: RRR, S1S2 present, no murmur PULM: LSCB, no cough, rales or wheeze ABDOMEN: nondistended, nontender and soft EXTREMITIES: 2+ post tibial pulses, with no edema NEUROLOGIC: AAOx3, normal motor strength PSYCHIATRIC: affect and mood normal VITALS: 220.9 lb [100.20 kg] (12/12/2024 09:00) 71 in [180.3 cm] (10/04/2024 08:03) Temperature: 97.1 F [36.2 C] (12/26/2024 12:55) Blood Pressure: 110/63 (12/26/2024 12:55) Pulse: 74 (12/26/2024 12:55) Respirations: 18 (12/26/2024 12:55) ECG: atrial paced 66 ASSESSMENT AND PLAN 1.bradycardia s/p pacemaker. No ast AHR or VHRs noted placed [place] [facility] [facility] PM 12/18/2018 2. paroxysmal atrial fib. He is on anticoagulation with apixaban 5 mg twice daily. [id number] HTN, CAD, DMT2, age, CRD =5 2. CRF with preserved EF of 60% Status post kidney transplant: March 2012 Last K4.7, creatinine 1.5 recurrent LE swelling on Bumex 1 mg every week. Will increase to every 3rd day. BMP January 09, 2025 Does see lymphedema clinic Tacrolimus 2 mg daily and 1 mg in the evening to prevent transplant rejection Sodium bicarb 1300 mg 2X/day per renal 3.bilat lower leg edema. will increase his bumex to every 3rd day f/u with lymphedema clinic 4. HLD: last LDL 35 mg/dL Continue atorvastatin 10 mg 5. History of venous thrombosis right leg\ after transplant Continue apixaban Follow-up with vascular per clinical indications 6. COPD: pulmonary discharged reporting his SOB most likely related to his heart/RT heart failure Comanaged with pulmonology 7. DMT2: Last A1c 7.5 has a large reddened area at previous pump site, will inform Rodney Yeung to this Continue insulin and follow-up PCP 8. CAD: Nonobstructive Negative for angina or anginal equivalent Continue metoprolol, atorvastatin, amlodipine, lisinopril 9. MEDARDO has CPAP has not set up yet since he's been in new house, waiting on new bed. 10. HTN BP 110/63 Continue amlodipine, lisinopril, metoprolol tartrate, Bumex as needed 11. PFO questions if this needs to be fixed, causing his SOB. Will have structural heart complete a chart review. RTC Spent 40 min reviewing records/labs/obtaining history/examining patient/ordering [...] completed, the results will be found in [facility]. # HEALTH PROMOTION/HEALTH MAINTENANCE & EDUCATION [...] questions or concerns. Life Sustaining Treatment Orders /charly/ DAVION SKINNER NP CARDIOLOGY/ELECTROPHYSIOLOGY [employer] SPRAYER Signed: 12/26/2024 13:52 Receipt Acknowledged By: 12/27/2024 09:53 /charly/ [facility] Nurse Practitioner 12/31/2024 09:55 /charly/ RODNEY [facility] ENDOCRINE NURSE PRACTITIONER 12/31/2024 ADDENDUM STATUS: COMPLETED I have been out of office last 5 days seems he went to ER 12/27 and prescribed doxycycline called pt on phone, no answer, left VM requesting call back to f/u on infusion site ext [phone] /charly/ RODNEY [facility] ENDOCR[facility] NURSE PRACTITIONER Signed: 12/31/2024 09:56 DAVION SKINNER [facility]
--- OUTSIDE RECORDS SUMMARY | 2024-12-27 04:53 | XMS_ITS | Encounter Summary ---
Author Name [facility] [place] [facility] [place] Address [address] [place] [address] Care Team Providers Care Chief Service Dispatcher Name Role Phone HELEN MATTHEWS Primary Care Provider Unavailbria estrella Insurance Providers: All historical and current Section [...] PART A Feb 09, 2019 PART A [id number] ANA GANNON EPH PATIENT MEDICARE (WNR) MEDICARE (M) PART B Feb 09, 2019 PART B [id number] ANA GANNON EPH PATIENT MEDICARE (WNR) MEDICARE (M) PART A Feb 09, 2019 PART A [id number] ANA GANNON EPH PATIENT MEDICARE (WNR) MEDICARE (M) PART B Feb 09, 2019 PART B [id number] ANA GANNON PATIENT MEDICARE (WNR) MEDICARE (M) PART A Feb 09, 2019 PART A [id number] ANA GANNON PATIENT MEDICARE (WNR) MEDICARE (M) PART B Feb 09, 2019 PART B [id number] ANA GANNON PATIENT MEDICARE PART D (WNR) MEDICARE (M) PART D Sep 11, 2019 PART D [id number] [phone] ANA GANNON PATIENT Selected Encounter This section includes the information on record at [place] for the Encounter. Date/Time Encounter Type Encounter Description Reason Provider Source Dec 27, 2024 09:53 AM Outpatient Encounter CARDIOLOGY ICD-10-CM Q21.12 Patent foramen ovale TARYN RODRIGUEZ Suzette Encounter Template Text not used by [place] Assessments - Encounter Diagnoses This section includes the primary and secondary diagnoses documented for the Encounter. Date/Time Primary/Secondary Diagnosis Diagnosis Name Provider Source Dec 27, 2024 10:22 AM PRIMARY Patent foramen ovale TARYN RODRIGUEZ [facility] Plan of Treatment: Future Appointments (+ 6 months) and Future Tests (+/- 45 days) The Plan of Treatment section includes future care activities for the patient from all [place] treatmentfacilities. This section includes future appointments and future orders which are active, pending or scheduled. Future Appointments This section includes appointments that were scheduled to occur 6 months from the date of the Encounter, up to a maximum of 20 appointments. The data comes from all [place] treatment facilities. Appointment Date/Time Appointment Type Appointme nt Facility Name Dec 31, 2024 10:00 AM AMBULATORY - MEDICINE [facility] January 30, 2025 10:00 AM AMBULATORY - MEDICINE [facility] February 06, 2025 10:00 AM AMBULATORY - MEDICINE [facility] Mar 06, 2025 10:00 AM AMBULATORY - MEDICINE [facility] Mar 18, 2025 11:00 AM AMBULATORY - MEDICINE [facility] Mar 25, 2025 01:00 PM AMBULATORY - MEDICINE [facility] Mar 27, 2025 12:15 PM AMBULATORY - MEDICINE [facility] Mar 27, 2025 12:30 PM AMBULATORY - MEDICINE [facility] Apr 07, 2025 08:30 AM AMBULATORY - MEDICINE [facility] Apr 10, 2025 10:00 AM AM[facility]ULATORY [facility] MEDICINE [facility] Apr 22, 2025 11:00 AM AMBULATORY - MEDICINE [facility] May 19, 2025 12:15 PM AMBULATORY - MEDICINE [facility] May 28, 2025 10:00 AM AMBULATORY - REHAB MEDICIN E [facility] May 30, 2025 10:00 AM AMBULATORY - MEDICINE [facility] Jun 12, 2025 09:30 AM AMBULATORY - MEDICINE [facility] Lab Results: +/- 30 days of the [...] Type Comment January 13, 2025 08:22 AM [facility] TACROLIMUS (STL-PB) BLOOD Specimen Type: BLOOD No comment entered. Ordering Provider: FRANCISCO DAILY Report Released Date/Time: Sep 27, 2024 12:13 PM Reporting Lab: [facility] [address] [place] [address] Performing Lab: [facility] [address] [place] [address] TACROLIMUS (STL-PB) 6.5 ng/mL January 13, 2025 08:22 AM [facility] RENAL PANEL PLASMA Specimen Type: PLASM A Comment: No hemolysis noted. Ordering Provider: FRANCISCO DAILY Report Released Date/Time: Sep 27, 2024 12:13 PM Reporting Lab: [facility] [address] [place] [address] Performing Lab: [facility] [address] [place] [address] CREATININE 1.64 mg/dL H 0.7-1.3 UREA NITROGEN 32.2 mg/dL H 9.0-25.0 GLUCOSE 120 mg/dL H 72-99 SODIUM 136 meq/L 136-145 POTASSIUM 4.9 meq/L 3.5-5 CHLORIDE 109 meq/L H 98-107 CARBON DIOXIDE 24 meq/L 22-31 CALCIUM 8.8 mg/dL 8.4-10.4 PHOSPHOROUS 4.2 mg/dL 2.3-4.7 ALBUMIN 3.5 g/dL 3.4-5 EGFR (CKD-EPI 2020) 44.7 >60 January 13, 2025 08:22 AM [facility] URINALYSIS (STL-PB) URINE Specimen Type: URIN E No comment entered. Ordering Provider: FRANCISCO DAILY Report Released Date/Time: Sep 27, 2024 12:13 PM Reporting Lab: [address] [address] Performing Lab: [address] [address] URINE COLOR Light-Yellow Yellow U.BILIRUBIN Negative mg/dL Negative U.PH 6.0 5.0-8.0 APPEARANCE Clear Clear U.NITRITE Negative mg/dL Negative URN.GLUCOSE 150 mg/dL H Negative URN.PROTEIN Negative mg/dL URN.UROBILINOGEN Normal mg/dL Normal URN.BLOOD Negative mg/dL Negative-Trace URN.KETONES Negative mg/dL Negative-Trac e URN.LEUK.EST. Negative mg/dL Negative-Tr malu URN.SPECIFIC GRAVITY 1.014 January 13, 2025 08:22 AM [facility] BASIC METABOLIC PANEL PLASMA Specimen Type: PL ASMA Comment: No hemolysis noted. Ordering Provider: DAVION SKINNER Report Released Date/Time: Dec 26, 2024 01:31 PM Reporting Lab: [address] [address] Performing Lab: [address] [address] CREATININE 1.64 mg/dL H 0.7-1.3 UREA NITROGEN 32.2 mg/dL H 9.0-25.0 GLUCOSE 120 mg/dL H 72-99 SODIUM 136 meq/L 136-145 POTASSIUM 4.9 meq/L 3.5-5 CHLORIDE 109 meq/L H 98-107 CARBON DIOXIDE 24 meq/L 22-31 CALCIUM 8.8 mg/dL 8.4-10.4 EGFR (CKD-EPI 2020) 44.7 >60 January 13, 2025 08:22 AM [facility] CBC BLOOD Specimen Type: BLOOD No comment entered. Ordering Provider: FRANCISCO DAILY Report Released Date/Time: Sep 27, 2024 12:13 PM Reporting Lab: [address] [address] Performing Lab: [address] [address] WBC 5.4 10*3/uL 3.6-11.2 RBC 4.06 10*6/uL [...] 0.60 BASOPHILS, ABSOLUTE 0.09 10*3/uL 0.00-0. 20 Dec 04, 2024 09:04 AM [facility] HGA1C BLOOD Specimen Type: BLOOD No comment entered. Ordering Provider: FRANCISCO DAILY Report Released Date/Time: Sep 27, 2024 12:13 PM Reporting Lab: [address] [address] Performing Lab: [facility] [address] [facility] [address] HGA1C 7.5 H 4.0-6.0 Dec 04, 2024 09:04 AM [facility] TACROLIMUS (STL-PB) BLOOD Specimen Type: BLOO D No comment entered. Ordering Provider: FRANCISCO DAILY Report Released Date/Time: Sep 27, 2024 12:13 PM Reporting Lab: [place] [address] [facility] [address] Performing Lab: [place] [address] [facility] [address] TACROLIMUS (STL-PB) 3.4 ng/mL Dec 04, 2024 09:04 AM [facility] RENAL PANEL PLASMA Specimen Type: PLASM A Comment: No hemolysis noted. Ordering Provider: FRANCISCO DAILY Report Released Date/Time: Sep 27, 2024 12:13 PM Reporting Lab: [place] [address] [facility] [address] Performing Lab: [place] [address] [facility] [address] CREATININE 1.50 mg/dL H 0.7-1.3 UREA NITROGEN 26.4 mg/dL H 9.0-25.0 GLUCOSE 141 mg/dL H 72-99 SODIUM 137 meq/L 136-145 POTASSIUM 4.7 meq/L 3.5-5 CHLORIDE 109 meq/L H 98-107 CARBON DIOXIDE 18 meq/L L 22-31 CALCIUM 8.9 mg/dL 8.4-10.4 PHOSPHOROUS 3.2 mg/dL 2.3-4.7 ALBUMIN 3.5 g/dL 3.4-5 EGFR (CKD-EPI 2020) 49.8 >60 Dec 04, 2024 09:04 AM [facility] CBC BLOOD Specimen Type: BLOOD No comment entered. Ordering Provider: FRANCISCO DAILY Report Released Date/Time: Sep 27, 2024 12:13 PM Reporting Lab: [place] [address] [facility] [address] Performing Lab: [facility] [address] [facility] [address] WBC 5.7 10*3/uL 3.6-11.2 RBC 3.87 10*6/uL [...] Height Weight Body Mass Index Source Dec 27, 2024 10:06 AM 98 60 17 5 [facility] Social History: Smoking Status (Most current) and Tobacco Use (All prior to encounter date) This section includes the most current, and the historical, smoking and tobacco- related health factors from the [place] facility where the Encounter took place. Current Smoking Status This section includes the most current smoking, or tobacco-related health factor, from the [place] facility where the Encounter took place. Date/Time Current Smoking Status Comment Facil amrita Apr 12, 2024 02:09 PM VA-TOBACCO NEVER USED [facility] Tobacco Use History This section includes a history of the smoking, or tobacco-related health factors, that were collected on or before the date of the Encounter. The data comes from the [place] facility where the Encounter took place. Date/Time Smoking Status/Tobacco Use Comment F acility Nov 07, 2022 01:35 PM VA-TOBACCO NEVER USED [facility] Mar 17, 2021 07:44 PM ORYX ADMIT TOBACCO SCREEN NO [facility] Dec 18, 2020 11:14 PM VA-TOBACCO NEVER USED [facility] Dec 18, 2020 08:23 PM ORYX ADMIT TOBACCO SCREEN NO [facility] Nov 14, 2006 01:52 PM LIFETIME NON-USER OF TOBACCO [facility] Nov 22, 2005 02:20 PM LIFETIME NON-TOBACCO USER [facility] Dec 08, 2004 01:37 PM LIFETIME NON-TOBACCO USER [facility] Jul 28, 2004 01:13 PM LIFETIME NON-TOBACCO USER [facility] Jul 09, 2003 01:05 PM LIFETIME NON-TOBACCO USER [facility] Jun 26, 2002 02:05 PM LIFETIME NON-TOBACCO USER [facility] May 23, 2001 01:12 PM LIFETIME NON-TOBACCO USER [facility] Jun 14, 2000 01:24 PM LIFETIME NON-TOBACCO USER [facility] Radiology Reports: +/- 30 days of the [...] the Encounter. The data comes from all [facility]. Date/Time Radiology Report Provider Source Dec 27, 2024 10:13 AM RIBS UNILAT+CHEST 3 OR MORE VIEWS: DAT GANNON [id number] -1955 M Exm Date: DEC 27, 2024@10:13 Req Phys: ALANA NOE Loc: [facility]GENCY DEPT 2ND SHIFT (R Img Loc: -MAIN RADIOLOGY SUITE Service: [facility] [address] [place] [address] (Case [id number] COMPLETE) RIBS UNILAT+CHEST 3 OR MORE VIEWS(RAD Series ) CPT:60343 Reason for Study: L SIDE RIB PAIN Clinical History: Report Status: Verified Date Reported: DEC 27, 2024 Date Verified: DEC 27, 2024 Trailer Park Manager E-Sig:/ES/LUZ MARIA MICHAELS MD Report: PA chest [...] Interpreting Staff: LUZ MARIA MICHAELS MD, Radiologist (Trailer Park Manager) Primary Interpreting Resident: BRENTON PRESLEY, Resident Physician /LUZ MARIA SUH [facility] Encounter Notes: All associated encounter notes This section contains the clinical notes associated to the Encounter. Date/Time Encounter Note(s) Provider Source Dec 27, 2024 09:53 AM CARDIOLOGY NOTE: LOCAL TITLE: CARDIOLOGY CHART REVIEW [facility] STANDARD TITLE: CARDIOLOGY NOTE DATE OF NOTE: DEC 27, 2024@09:53 ENTRY DATE: DEC 27, 2024@09:53:46 AUTHOR: TARYN RODRIGUEZ EXP COSIGNER: URGENCY: STATUS: COMPLETED Cardiology E-consult Reason for consult: Candidacy for PFO closure I have reviewed pertinent CPRS documentation in the electronic medical record for this patient. The recommendations/findings offered are the result of information from the requesting provider and a chart review only. Cardiac HX/EVAL ECHO 05/2024 Conclusion 1. Normal left ventricular size. Mild [...] Valsalva only (10-20 bubbles/frame). Mobile interatrial septum. Page 3 of 3 for report of patient DAT GANNON, 1955 9. As compared to the previous echocardiogram done on 06-07-2022, now see elevated pulmonary pressures. ALEJANDRA 03-24-2021 confirmed PFO. Tash Burr MD ALEJANDRA 03/2021 Conclusion 1. Deep transgastric views were not performed as pt was found to have gastritis and is s/p biopsies on 03/23/21. 2. No echocardiographic evidence of vegetations. 3. Normal biventricular systolic function. 4. No hemodynamically significant valvular abnormality. 5. Patent foramen ovale is present with left to right shunt and intermittent right to left shunt with 2D and color flow Doppler analysis. Atrial septum aneurysm (2 cm). Agitated saline bubble study reveals no evidence of right to left shunt at baseline and with cough (10 bubbles crossing). 6. The major findings were communicated with patient at the end of procedure Page 3 of 3 for report of patient DAT GANNON, 1955 MAHAMED NUNO MD PAST MEDICAL HISTORY 1) Diabetic nephropathy (SNOMED CT 359819642) 2) Ulcer of lower Limb, unspecified (ICD-9-CM 707.10) 3) Erectile dysfunction due to diabetes mellitus (SNOMED CT 654739721) 4) Anemia in Chronic Kidney Disease (ICD-9-CM 285.21) 5) HTN - Hypertension (SNOMED CT 84234811) 6) GERD * (ICD-9-CM 530.81) 7) Acidosis, metabolic NEC (ICD-9-CM 276.2) 8) Diabetic nephropathy (SNOMED CT 774941200) 9) Hypertensive chronic kidney disease, unspecified, with chronic kidney disease St 10) History of - kidney recipient (SNOMED CT 275542935) 11) Other Fluid Overload (ICD-9-CM 276.69) 12) Anticoagulant effect 13) Insulin pump present 14) Sinus bradycardia 15) Permanent cardiac pacemaker 16) Therapeutic drug effect 17) Acute osteomyelitis of foot 18) History of venous thrombosis 19) Postthrombotic syndrome 20) Sleep apnea 21) Lack of exercise 22) Coronary artery disease 23) Osteopenia 24) Patent foramen ovale 25) Chronotropic incompetence ACTIVE OUTPATIENT MEDICATIONS Active Outpatient Medications (including [...] (FOR PROSTATE) Indication: FOR BENIGN PROSTATIC HYPERPLASIA SELECTED RESULTS REVIEWED Recent lab testing reviewed IMPRESSION/PLAN: is a 69 yo with a past medical history significant for HTN, HLD, DMII, Chronotropic incompetence, MEDARDO, Osteopenia, PFO, lymphedema, COPD, s/p kidney transplant, DVT, Bradycardia s/p dual chamber PPM. [place] c/o sob and cardiology provider requests evaluation for candidacy of PFO closure. His most recent TTE 05/2024 revealed a small PFO with a R-L shunt (10-20 bubbles) with valsalva only. His PFO has been present since 2020, seen on ALEJANDRA. There is no evidence of shunting at baseline, it is by valsalva only. PFO closure is recommended for patients who are <65yo with a high ROPE (Risk of Paradoxical Embolism) Score (>6) and have a history of cryptogenic stroke or TIA. Per chart review, this has never had a CVA/TIA and is age 69, therefore does not meet the critieria for closure. His c/o sob could be multifactorial r/t his COPD, pulm HTN, chronotropic incompetence, non-compliance with cpap, recovering from Covid 19. 31+ minutes spent reviewing patient's medical records /charly/ LY [place] Nurse Practitioner Signed: 12/27/2024 10:22 Receipt Acknowledged By: 12/27/2024 16:10 /charly/ DAVION SKINNER NP CARDIOLOGY/ELECTROPHYSIOLOGY TARYN [facility]
--- OUTSIDE RECORDS SUMMARY | 2024-12-27 04:56 | XMS_ITS | Encounter Summary ---
Author Name [facility] [place] [facility] [place] Address [address] [place] [address] Care Team Providers Care Forming Roll Operator Heavy Duty Name Role Phone HELEN MATTHEWS Primary Care [...] PART A Feb 09, 2019 PART A [id number] ANA GANNON EPH PATIENT MEDICARE (WNR) MEDICARE (M) PART B Feb 09, 2019 PART B [id number] [phone] ANA GANNON EPH PATIENT MEDICARE (WNR) MEDICARE (M) PART A Feb 09, 2019 PART A [id number] ANA GANNON EPH PATIENT MEDICARE (WNR) MEDICARE (M) PART B Feb 09, 2019 PART B [id number] ANA GANNON PATIENT MEDICARE (WNR) MEDICARE (M) PART A Feb 09, 2019 PART A [id number] ANA GANNON PATIENT MEDICARE (WNR) MEDICARE (M) PART B Feb 09, 2019 PART B [id number] ANA GANNON PATIENT MEDICARE PART D (WNR) MEDICARE (M) PART D Sep 11, 2019 PART D [id number] [phone] ANA GANNON PATIENT Selected Encounter This section includes the information on record at [place] for the Encounter. Date/Time Encounter Type Encounter Description Reason Provider Source Dec 27, 2024 09:56 AM EMERGENCY DEPT VISIT [facility] EMERGENCY DEPT ICD-10-CM S20.20XA Contusion of thorax, unspecified, initial encounter ALANA NOE [facility] Encounter Template Text not used by [place] Assessments - Encounter Diagnoses This section includes the primary and secondary diagnoses documented for the Encounter. Date/Time Primary/Secondary Diagnosis Diagnosis Name Provider Source Dec 27, 2024 11:13 AM PRIMARY Contusion of thorax, unspecified, [facility] Dec 27, 2024 11:13 AM SECONDARY Cellulitis of abdominal wall ALANA NOE [facility] Plan of Treatment: Future Appointments (+ 6 months) and Future Tests (+/- 45 days) The Plan of Treatment section includes future care activities for the patient from all [place] treatmentfacilities. This section includes future appointments and future orders which are active, pending or scheduled. Future Appointments This section includes appointments that were scheduled to occur 6 months from the date of the Encounter, up to a maximum of 20 appointments. The data comes from all [place] treatment facilities. Appointment Date/Time Appointment Type Appointme nt Facility Name Dec 31, 2024 10:00 AM AMBULATORY - MEDICINE [facility] January 30, 2025 10:00 AM AMBULATORY - MEDICINE [facility] February 06, 2025 10:00 AM AMBULATORY - MEDICINE [facility] Mar 06, 2025 10:00 AM AMBULATORY - MEDICINE [facility] Mar 18, 2025 11:00 AM AMBULATORY - MEDICINE [facility] Mar 25, 2025 01:00 PM AMBULATORY - MEDICINE [facility] Mar 27, 2025 12:15 PM AMBULATORY - MEDICINE [facility] Mar 27, 2025 12:30 PM AMBULATORY - MEDICINE [facility] Apr 07, 2025 08:30 AM AMBULATORY - MEDICINE [facility] Apr 10, 2025 10:00 AM AMBULATORY - MEDICINE [facility] Apr 22, 2025 11:00 AM AMBULATORY - MEDICINE [facility] May 19, 2025 12:15 PM AMBULATORY - MEDICINE [facility] May 28, 2025 10:00 AM AMBULATORY - REHAB MEDICIN E [facility] May 30, 2025 10:00 AM AMBULATORY - MEDICINE [facility] Jun 12, 2025 09:30 AM AMBULATORY - MEDICINE [facility] Lab Results: +/- 30 days of the encounter This section includes the Chemistry and Hematology Lab Results on record with [place] for the patient. Radiology Reports and Pathology Reports are provided separately, in subsequent sections. Lab Results This section contains the Chemistry/Hematology Results that were resulted 30 days before or 30 daysafter the date of the Encounter. Date/Time Source Result Type Result - Unit Interpretation Reference Range Specimen Type Comment January 13, 2025 08:22 AM [facility] TACROLIMUS (STL-PB) BLOOD Specimen Type: BLOOD No comment entered. Ordering Provider: FRANCISCO DAILY Report Released Date/Time: Sep 27, 2024 12:13 PM Reporting Lab: [facility] [address] [address] Performing Lab: [facility] [address] [address] TACROLIMUS (STL-PB) 6.5 ng/mL January 13, 2025 08:22 AM [facility] URINALYSIS (STL-PB) URINE Specimen Type: URIN E No comment entered. Ordering Provider: FRANCISCO DAILY Report Released Date/Time: Sep 27, 2024 12:13 PM Reporting Lab: [address] [address] Performing Lab: [address] [address] URINE COLOR Light-Yellow Yellow U.BILIRUBIN Negative mg/dL Negative U.PH 6.0 5.0-8.0 APPEARANCE Clear Clear U.NITRITE Negative mg/dL Negative URN.GLUCOSE 150 mg/dL H Negative URN.PROTEIN Negative mg/dL URN.UROBILINOGEN Normal mg/dL Normal URN.BLOOD Negative mg/dL Negative-Trace URN.KETONES Negative mg/dL Negative-Trac e URN.LEUK.EST. Negative mg/dL Negative-Tr malu URN.SPECIFIC GRAVITY 1.014 January 13, 2025 08:22 AM [facility] RENAL PANEL PLASMA Specimen Type: PLASM A Comment: No hemolysis noted. Ordering Provider: FRANCISCO DAILY Report Released Date/Time: Sep 27, 2024 12:13 PM Reporting Lab: [address] [address] Performing Lab: [address] [address] CREATININE 1.64 mg/dL H 0.7-1.3 UREA NITROGEN 32.2 mg/dL H 9.0-25.0 GLUCOSE 120 mg/dL H 72-99 SODIUM 136 meq/L 136-145 POTASSIUM 4.9 meq/L 3.5-5 CHLORIDE 109 meq/L H 98-107 CARBON DIOXIDE 24 meq/L 22-31 CALCIUM 8.8 mg/dL 8.4-10.4 PHOSPHOROUS 4.2 mg/dL 2.3-4.7 ALBUMIN 3.5 g/dL 3.4-5 EGFR (CKD-EPI 2020) 44.7 >60 January 13, 2025 08:22 AM [facility] BASIC METABOLIC PANEL PLASMA Specimen Type: PL ASMA Comment: No hemolysis noted. Ordering Provider: DAVION SKINNER Report Released Date/Time: Dec 26, 2024 01:31 PM Reporting Lab: [address] [address] Performing Lab: [address] [address] CREATININE 1.64 mg/dL H 0.7-1.3 UREA NITROGEN 32.2 mg/dL H 9.0-25.0 GLUCOSE 120 mg/dL H 72-99 SODIUM 136 meq/L 136-145 POTASSIUM 4.9 meq/L 3.5-5 CHLORIDE 109 meq/L H 98-107 CARBON DIOXIDE 24 meq/L 22-31 CALCIUM 8.8 mg/dL 8.4-10.4 EGFR (CKD-EPI 2020) 44.7 >60 January 13, 2025 08:22 AM [facility] CBC BLOOD Specimen Type: BLOOD No comment entered. Ordering Provider: FRANCISCO DAILY Report Released Date/Time: Sep 27, 2024 12:13 PM Reporting Lab: [address] [address] Performing Lab: [address] [address] WBC 5.4 10*3/uL 3.6-11.2 RBC 4.06 10*6/uL [...] 0.00-0. 20 Dec 04, 2024 09:04 AM [facility] TACROLIMUS (STL-PB) BLOOD Specimen Type: BLOO D No comment entered. Ordering Provider: FRANCISCO DAILY Report Released Date/Time: Sep 27, 2024 12:13 PM Reporting Lab: [address] [address] Performing Lab: [address] [address] TACROLIMUS (STL-PB) 3.4 ng/mL Dec 04, 2024 09:04 AM [facility] HGA1C BLOOD Specimen Type: BLOOD No comment entered. Ordering Provider: FRANCISCO DAILY Report Released Date/Time: Sep 27, 2024 12:13 PM Reporting Lab: [address] [address] Performing Lab: [address] [address] HGA1C 7.5 H 4.0-6.0 Dec 04, 2024 09:04 AM [facility] RENAL PANEL PLASMA Specimen Type: PLASM A Comment: No hemolysis noted. Ordering Provider: FRANCISCO DAILY Report Released Date/Time: Sep 27, 2024 12:13 PM Reporting Lab: [address] [address] Performing Lab: [address] [address] CREATININE 1.50 mg/dL H 0.7-1.3 UREA NITROGEN 26.4 mg/dL H 9.0-25.0 GLUCOSE 141 mg/dL H 72-99 SODIUM 137 meq/L 136-145 POTASSIUM 4.7 meq/L 3.5-5 CHLORIDE 109 meq/L H 98-107 CARBON DIOXIDE 18 meq/L L 22-31 CALCIUM 8.9 mg/dL 8.4-10.4 PHOSPHOROUS 3.2 mg/dL 2.3-4.7 ALBUMIN 3.5 g/dL 3.4-5 EGFR (CKD-EPI 2020) 49.8 >60 Dec 04, 2024 09:04 AM [facility] CBC BLOOD Specimen Type: BLOOD No comment entered. Ordering Provider: FRANCISCO DAILY Report Released Date/Time: Sep 27, 2024 12:13 PM Reporting Lab: [facility] [address] [facility] [address] Performing Lab: [facility] [address] [facility] [address] WBC 5.7 10*3/uL 3.6-11.2 RBC 3.87 10*6/uL [...] 2024 10:06 AM 98 60 [address] [facility] Social History: Smoking Status (Most current) and Tobacco Use (All prior to encounter date) This section includes the most current, and the historical, smoking and tobacco- related health factors from the [place] facility where the Encounter took place. Current Smoking Status This section includes the most current smoking, or tobacco-related health factor, from the [place] facility where the Encounter took place. Date/Time Current Smoking Status Comment Jg crowe Apr 12, 2024 02:09 PM VA-TOBACCO NEVER USED [facility] Tobacco Use History This section includes a history of the smoking, or tobacco-related health factors, that were collected on or before the date of the Encounter. The data comes from the [place] facility where the Encounter took place. Date/Time Smoking Status/Tobacco Use Comment F acility Nov 07, 2022 01:35 PM VA-TOBACCO NEVER USED [facility] Mar 17, 2021 07:44 PM ORYX ADMIT TOBACCO SCREEN NO [facility] Dec 18, 2020 11:14 PM VA-TOBACCO NEVER USED [facility] Dec 18, 2020 08:23 PM ORYX ADMIT TOBACCO SCREEN NO [facility] Nov 14, 2006 01:52 PM LIFETIME NON-USER OF TOBACCO [facility] Nov 22, 2005 02:20 PM LIFETIME NON-TOBACCO USER [facility] Dec 08, 2004 01:37 PM LIFETIME NON-TOBACCO USER [facility] Jul 28, 2004 01:13 PM LIFETIME NON-TOBACCO USER [facility] Jul 09, 2003 01:05 PM LIFETIME NON-TOBACCO USER [facility] Jun 26, 2002 02:05 PM LIFETIME NON-TOBACCO USER [facility] May 23, 2001 01:12 PM LIFETIME NON-TOBACCO USER [facility] Jun 14, 2000 01:24 PM LIFETIME NON-TOBACCO USER [facility] Radiology Reports: +/- 30 days of the [...] the Encounter. The data comes from all [facility] facilities. Date/Time Radiology Report Provider Source Dec 27, 2024 10:13 AM RIBS UNILAT+CHEST 3 OR MORE VIEWS: DAT GANNON [id number] -[phone] M Exm Date: DEC 27, 2024@10:13 Req Phys: ALANA NOE Loc: [facility]-EMERGENCY DEPT 2ND SHIFT (R Img Loc: [facility]MAIN RADIOLOGY SUITE Service: Unknown [facility] [address] [place] [address] (Case [id number] COMPLETE) RIBS UNILAT+CHEST 3 OR MORE VIEWS(RAD Series ) CPT:12850 Reason for Study: L SIDE RIB PAIN Clinical History: Report Status: Verified Date Reported: DEC 27, 2024 Date Verified: DEC 27, 2024 Business Administration Teacher E-Sig:/ES/LUZ MARIA MICHAELS MD Report: PA chest [...] Interpreting Staff: LUZ MARIA MICHAELS MD, Radiologist (Business Administration Teacher) Primary Interpreting Resident: BRENTON PRESLEY, Resident Physician /LUZ MARIA SUH [facility] Encounter Notes: All associated encounter notes This section contains the clinical notes associated to the Encounter. Date/Time Encounter Note(s) Provider Source Dec 27, 2024 10:20 AM PHYSICIAN EMERGENC Y DEPT NOTE: LOCAL TITLE: EMERGENCY DEPARTMENT ST STANDARD TITLE: PHYSICIAN EMERGENCY DEPT NOTE DATE OF NOTE: DEC 27, 2024@10:20 ENTRY DATE: DEC 27, 2024@10:20:30 AUTHOR: ALANA NOE EXP COSIGNER: URGENCY: STATUS: COMPLETED TRIAGE CHIEF COMPLAINT: Left chest wall injury HPI: Patient is a 69-year-old male with history of diabetes, hypertension, GERD, CKD, presents with complaint of left chest wall injury last week. He reports he is in the process of moving and a box fell and struck him in the lateral left chest. He had also struck his insulin pump which was inserted in his left abdomen. He reports that since then his chest has been sore in certain positions He is taking Tylenol with some relief. No significant shortness of breath. He also notes that his insulin pump site has become erythematous and inflamed and slightly tender. REVIEW OF SYSTEMS: See HPI for further details. All 10 systems reviewed and otherwise negative unless otherwise detailed herein. PAST MEDICAL HISTORY: 1) Diabetic nephropathy (SNOMED CT 986751938) 2) Ulcer of lower Limb, unspecified (ICD-9-CM 707.10) 3) Erectile dysfunction due to diabetes mellitus (SNOMED CT 953865755) 4) Anemia in Chronic Kidney Disease (ICD-9-CM 285.21) 5) HTN - Hypertension (SNOMED CT 21849726) 6) GERD * (ICD-9-CM 530.81) 7) Acidosis, metabolic NEC (ICD-9-CM 276.2) 8) Diabetic nephropathy (SNOMED CT 316424583) 9) Hypertensive chronic kidney disease, unspecified, with chronic kidney disease St 10) History of - kidney recipient (SNOMED CT 415389584) 11) Other Fluid Overload (ICD-9-CM 276.69) 12) Anticoagulant effect 13) Insulin pump present 14) Sinus bradycardia 15) Permanent cardiac pacemaker 16) Therapeutic drug effect 17) Acute osteomyelitis of foot 18) History of venous thrombosis 19) Postthrombotic syndrome 20) Sleep apnea 21) Lack of exercise 22) Coronary artery disease 23) Osteopenia 24) Patent foramen ovale 25) Chronotropic incompetence CURRENT MEDICATIONS: Active Outpatient Medications (including Supplies): Active Outpatient [...] (FOR PROSTATE) Indication: FOR BENIGN PROSTATIC HYPERPLASIA No medications found.. SURGICAL HISTORY: not pertinent FAMILY HISTORY: not pertinent SOCIAL HISTORY: Social History Main Topics: Smoking status: No data available for: Current Tobacco User Alcohol Use: not endorsed ____ Illicit Drug Use: not endorsed Sexual Activity: Other Topics of Concern: Child bearing age: N/A LMP: N/A possible: N/A ALLERGIES: Review of patient's allergies indicates: MORPHINE PHYSICAL EXAM: VITAL SIGNS: 110/63 (12/26/2024 12:55) 60 (12/27/2024 10:06) 96% (12/26/2024 12:55) 98 F [36.7 C] (12/27/2024 10:06) 17 (12/27/2024 10:06) Measurement DT WEIGHT LB(KG)[BMI] 12/26/2024 12:55 216.1(98.02)[30*] 12/12/2024 09:00 220.9(100.20)[31*] 11/22/2024 09:54 213.7(96.93)[30*] Measurement DT PAIN 12/27/2024 10:06 5 12/26/2024 12:55 5 CONSTITUTIONAL: No acute distress, Non-toxic appearance, pleasant and conversant HENT: airway patent, normal voice EYES: Conj pink, sclera clear NECK: Grossly normal range of motion PULMONARY/CHEST: Normal effort, mild tenderness to lateral left chest wall around the level of T5. No crepitus. Abdomen: There is a well-demarcated approximately 4 cm area of erythema and mild induration at the prior site of his insulin pump. There is no crepitus, no fluctuance : RECTAL: EXTREMITIES: Grossly Normal range of motion NEUROLOGIC: Alert & oriented/reactive, Grossly normal motor function, Normal gait observed, no ataxia, No focal deficits appreciated on cursory screening exam SKIN: Warm, Dry, No erythema, No appreciable significant rash LABS: RADIOLOGY: Report: PA chest radiograph in addition to [...] and report and concur with these findings. ED COURSE & MEDICAL DECISION MAKING: Reviewed x-rays with patient. Suspect chest wall contusion versus strain. No evidence of fracture or pneumothorax. In regards to his insulin pump site, there appears to be some evidence of developing cellulitis. He appears clinically nontoxic. He does note that there is a tiny amount of purulent drainage when he initially removed his insulin pump. At this time there does not appear to be any evidence of abscess. Will treat with doxycycline for suspected focal cellulitis and discussed careful RT ER precautions. He is comfortable with this plan. Nursing notes, medications, vital signs, allergies and pertinent labs & imaging studies reviewed (see chart for details) with lab results reviewed with patient and family/caregivers at bedside and radiology results reviewed with patient and any family/caregivers at bedside. Stable, alert, nontoxic, nonfocal with clinically apparent left rib contusion, abdominal wall cellulitis CERTIFIED OPHTHALMIC ASSISTANT SERVICE/TIME: MEDICATIONS GIVEN IN ED: [ ] YES [X] NO DIFFERENTIAL DIAGNOSES CONSIDERED: Contusion, strain, fracture, pneumothorax, cellulitis, abscess, other DECISION to ADMIT / DISCHARGE TIME: 1050 DISPOSITION CONDITION:[ x ] Improved [ ] Unchanged [ ] Deteriorated CLINICAL IMPRESSION: 1 - rib contusion 2 - abdominal wall cellulitis DISCHARGE INSTRUCTIONS AND PATIENT-DIRECTED FOLLOW-UP RECOMMENDATIONS: DIET: regular ACTIVITY: ad trina NEW MEDS: doxycycline. lidocaine as prescribed MEDICATION RECONCILIATION: CONTINUE ALL PRESCRIBED MEDICATIONS DIRECTED FOLLOW-UP WITH PRIMARY MASTER MACHINIST/SPECIALIST: routine in 1-2 weeks if not improving, sooner if worse RETURN TO EMERGENCY: if symptoms worsen or fail to improve as anticipated, new symptoms develop, or any worries or concerns ADDITIONAL SIGNATURE PCP: [ ] YES [ ] NO [ ] not listed Active Outpatient Medications (including Supplies): Active Outpatient [...] (FOR PROSTATE) Indication: FOR BENIGN PROSTATIC HYPERPLASIA /es/ ALANA NOE MD STAFF PHYSICIAN Signed: 12/27/2024 10:59 ALANA NOE [facility] Dec 27, 2024 10:03 AM EMERGENCY DEPT TRI AGE NOTE: LOCAL TITLE: EMERGENCY DEPARTMENT TRIAGE NOTE STANDARD TITLE: EMERGENCY DEPT TRIAGE NOTE DATE OF NOTE: DEC 27, 2024@10:03 ENTRY DATE: DEC 27, 2024@10:03:21 AUTHOR: JOSSELIN BONNER EXP COSIGNER: URGENCY: STATUS: COMPLETED Emergency Department/Urgent Care Center Triage Patient age:69 Sex in chart: MALE Mode of Arrival: Self Mode of Mobility: * Walk Chief 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 Pt also endorses some increased shortness of breath. Denies chest pain. Level of Consciousness (AVPU): Alert = Appears aware of and responsive to the environment on their own. Follows commands, opens eyes spontaneously, and tracks objects. Vital Signs: Temperature 98 F (36.7 C) Pulse 60 Blood Pressure: 107/59 Respirations 17 Pulse Oximetry 97 Room Air Pain: DVPRS Scale Location: see above Defense and Veterans Pain Rating Scale (DVPRS): Pain Score: 5 Patient's acceptable pain goal: Suicide Screen: Door Suicide Severity Rating Scale (C-SSRS) screener 1. Over the past month, have you wished you were or wished you could go to sleep and not wake up? No 2. Over the past month, have you had any actual thoughts of killing yourself? No 3. Over the past month, have you been thinking about how you might do this? Response not required due to responses to other questions. 4. Over the past month, have you had these thoughts and had some intention of acting on them? Response not required due to responses to other questions. 5. Over the past month, have you started to work out or worked out the details of how to kill yourself? Response not required due to responses to other questions. 6. If yes, at any time in the past month did you intend to carry out this plan? Response not required due to responses to other questions. 7. In your lifetime, have you ever done anything, started to do anything, or prepared to do anything to end your life (for example, collected pills, obtained a gun, gave away valuables, went to the roof but didn't jump)? No 8. If YES, was this within the past 3 months? Response not required due to responses to other questions. Emergency Severity Index (IRASEMA) level: Level 4 Previously documented allergies: MORPHINE Current Problems: 1) Diabetic nephropathy (SNOMED CT 237120797) 2) Ulcer of lower Limb, unspecified (ICD-9-CM 707.10) 3) Erectile dysfunction due to diabetes mellitus (SNOMED CT 153284366) 4) Anemia in Chronic Kidney Disease (ICD-9-CM 285.21) 5) HTN - Hypertension (SNOMED CT 18103118) 6) GERD * (ICD-9-CM 530.81) 7) Acidosis, metabolic NEC (ICD-9-CM 276.2) 8) Diabetic nephropathy (SNOMED CT 446149531) 9) Hypertensive chronic kidney disease, unspecified, with chronic kidney disease St 10) History of - kidney recipient (SNOMED CT 912752135) 11) Other Fluid Overload (ICD-9-CM 276.69) 12) Anticoagulant effect 13) Insulin pump present 14) Sinus bradycardia 15) Permanent cardiac pacemaker 16) Therapeutic drug effect 17) Acute osteomyelitis of foot 18) History of venous thrombosis 19) Postthrombotic syndrome 20) Sleep apnea 21) Lack of exercise 22) Coronary artery disease 23) Osteopenia 24) Patent foramen ovale 25) Chronotropic incompetence /es/ JOSSELIN BONNER RN REGISTERED NURSE Signed: 12/27/2024 10:10 JOSSELIN BONNER [facility]
--- OUTSIDE RECORDS SUMMARY | 2024-12-31 05:00 | XMS_ITS ---
Author Name [facility] [place] [facility] [place] Address [address] [place] [address] Care Team Providers Care [facility] Manager Name Role Phone HELEN [...] PART A Feb 09, 2019 PART A [id number] ANA GANNON EPH PATIENT MEDICARE (WNR) MEDICARE (M) PART B Feb 09, 2019 PART B [id number] [phone] ANA GANNON EPH PATIENT MEDICARE (WNR) MEDICARE (M) PART A Feb 09, 2019 PART A [id number] ANA GANNON EPH PATIENT MEDICARE (WNR) MEDICARE (M) PART B Feb 09, 2019 PART B [id number] ANA GANNON PATIENT MEDICARE (WNR) MEDICARE (M) PART A Feb 09, 2019 PART A [id number] [phone] ANA GANNON PATIENT MEDICARE (WNR) MEDICARE (M) PART B Feb 09, 2019 PART B [id number] ANA GANNON PATIENT MEDICARE PART D (WNR) MEDICARE (M) PART D Sep 11, 2019 PART D [id number] [phone] ANA GANNON PATIENT Selected Encounter This section includes the information on record at [place] for the Encounter. 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. This section includes future appointments and future orders which are active, pending or scheduled. Future Appointments This section includes appointments that were scheduled to occur 6 months from the date of the Encounter, up to a maximum of 20 appointments. The data comes from all [place] treatment facilities. Appointment Date/Time Appointment Type Appointme nt Facility Name January 30, 2025 10:00 AM AMBULATORY - MEDICINE [facility] February 06, 2025 10:00 AM AMBULATORY - MEDICINE [facility] Mar 06, 2025 10:00 AM AMBULATORY - MEDICINE [facility] Mar 18, 2025 11:00 AM AMBULATORY - MEDICINE [facility] Mar 25, 2025 01:00 PM AMBULATORY - MEDICINE [facility] Mar 27, 2025 12:15 PM AMBULATORY - MEDICINE [facility] Mar 27, 2025 12:30 PM AMBULATORY - MEDICINE [facility] Apr 07, 2025 08:30 AM AMBULATORY - MEDICINE [facility] Apr 10, 2025 10:00 AM [facility] Apr 22, 2025 11:00 AM AMBULATORY - MEDICINE [facility] May 19, 2025 12:15 PM AMBULATORY - MEDICINE [facility] May 28, 2025 10:00 AM AMBULATORY - REHAB MEDICIN E [facility] May 30, 2025 10:00 AM AMBULATORY - MEDICINE [facility] Jun 12, 2025 09:30 AM AMBULATORY - MEDICINE [facility] Lab Results: +/- 30 days of the encounter This section includes the Chemistry and Hematology Lab Results on record with [place] for the patient. Radiology Reports and Pathology Reports are provided separately, in subsequent sections. Lab Results This section contains the Chemistry/Hematology Results that were resulted 30 days before or 30 daysafter the date of the Encounter. Date/Time Source Result Type Result - Unit Interpretation Reference Range Specimen Type Comment January 13, 2025 08:22 AM [facility] TACROLIMUS (STL-PB) BLOOD Specimen Type: BLOOD No comment entered. Ordering Provider: FRANCISCO DAILY Report Released Date/Time: Sep 27, 2024 12:13 PM Reporting Lab: [facility] [address] [address] Performing Lab: [facility] [address] [facility] [address] TACROLIMUS (STL-PB) 6.5 ng/mL January 13, 2025 08:22 AM [facility] RENAL PANEL PLASMA Specimen Type: PLASM A Comment: No hemolysis noted. Ordering Provider: FRANCISCO DAILY Report Released Date/Time: Sep 27, 2024 12:13 PM Reporting Lab: [facility] [address] [address] Performing Lab: [place] [address] [facility] [address] CREATININE 1.64 mg/dL H 0.7-1.3 UREA NITROGEN 32.2 mg/dL H 9.0-25.0 GLUCOSE 120 mg/dL H 72-99 SODIUM 136 meq/L 136-145 POTASSIUM 4.9 meq/L 3.5-5 CHLORIDE 109 meq/L H 98-107 CARBON DIOXIDE 24 meq/L 22-31 CALCIUM 8.8 mg/dL 8.4-10.4 PHOSPHOROUS 4.2 mg/dL 2.3-4.7 ALBUMIN 3.5 g/dL 3.4-5 EGFR (CKD-EPI 2020) 44.7 >60 January 13, 2025 08:22 AM [facility] URINALYSIS (STL-PB) URINE Specimen Type: URIN E No comment entered. Ordering Provider: FRANCISCO DAILY Report Released Date/Time: Sep 27, 2024 12:13 PM Reporting Lab: [address] [address] Performing Lab: [address] [address] URINE COLOR Light-Yellow Yellow U.BILIRUBIN Negative mg/dL Negative U.PH 6.0 5.0-8.0 APPEARANCE Clear Clear U.NITRITE Negative mg/dL Negative URN.GLUCOSE 150 mg/dL H Negative URN.PROTEIN Negative mg/dL URN.UROBILINOGEN Normal mg/dL Normal URN.BLOOD Negative mg/dL Negative-Trace URN.KETONES Negative mg/dL Negative-Trac e URN.LEUK.EST. Negative mg/dL Negative-Tr malu URN.SPECIFIC GRAVITY 1.014 January 13, 2025 08:22 AM [facility] BASIC METABOLIC PANEL PLASMA Specimen Type: PL ASMA Comment: No hemolysis noted. Ordering Provider: DAVION SKINNER Report Released Date/Time: Dec 26, 2024 01:31 PM Reporting Lab: [address] [address] Performing Lab: [address] [address] CREATININE 1.64 mg/dL H 0.7-1.3 UREA NITROGEN 32.2 mg/dL H 9.0-25.0 GLUCOSE 120 mg/dL H 72-99 SODIUM 136 meq/L 136-145 POTASSIUM 4.9 meq/L 3.5-5 CHLORIDE 109 meq/L H 98-107 CARBON DIOXIDE 24 meq/L 22-31 CALCIUM 8.8 mg/dL 8.4-10.4 EGFR (CKD-EPI 2020) 44.7 >60 January 13, 2025 08:22 AM [facility] CBC BLOOD Specimen Type: BLOOD No comment entered. Ordering Provider: FRANCISCO DAILY Report Released Date/Time: Sep 27, 2024 12:13 PM Reporting Lab: [facility] [address] [facility] [address] Performing Lab: [address] [address] WBC 5.4 10*3/uL 3.6-11.2 RBC 4.06 10*6/uL [...] 0.00-0. 20 Dec 04, 2024 09:04 AM [facility] HGA1C BLOOD Specimen Type: BLOOD No comment entered. Ordering Provider: FRANCISCO DAILY Report Released Date/Time: Sep 27, 2024 12:13 PM Reporting Lab: [address] [address] Performing Lab: [address] [address] HGA1C 7.5 H 4.0-6.0 Dec 04, 2024 09:04 AM [facility] TACROLIMUS (STL-PB) BLOOD Specimen Type: BLOO D No comment entered. Ordering Provider: FRANCISCO DAILY Report Released Date/Time: Sep 27, 2024 12:13 PM Reporting Lab: [address] [address] Performing Lab: [address] [address] TACROLIMUS (STL-PB) 3.4 ng/mL Dec 04, 2024 09:04 AM [facility] RENAL PANEL PLASMA Specimen Type: PLASM A Comment: No hemolysis noted. Ordering Provider: FRANCISCO DAILY Report Released Date/Time: Sep 27, 2024 12:13 PM Reporting Lab: [address] [address] Performing Lab: [address] [address] CREATININE 1.50 mg/dL H 0.7-1.3 UREA NITROGEN 26.4 mg/dL H 9.0-25.0 GLUCOSE 141 mg/dL H 72-99 SODIUM 137 meq/L 136-145 POTASSIUM 4.7 meq/L 3.5-5 CHLORIDE 109 meq/L H 98-107 CARBON DIOXIDE 18 meq/L L 22-31 CALCIUM 8.9 mg/dL 8.4-10.4 PHOSPHOROUS 3.2 mg/dL 2.3-4.7 ALBUMIN 3.5 g/dL 3.4-5 EGFR (CKD-EPI 2020) 49.8 >60 Dec 04, 2024 09:04 AM [facility] CBC BLOOD Specimen Type: BLOOD No comment entered. Ordering Provider: FRANCISCO DAILY Report Released Date/Time: Sep 27, 2024 12:13 PM Reporting Lab: [facility] [address] [facility] [address] Performing Lab: [facility] [address] [facility] [address] WBC 5.7 10*3/uL 3.6-11.2 RBC 3.87 10*6/uL [...] and tobacco- related health factors from the [place] facility where the Encounter took place. Current Smoking Status This section includes the most current smoking, or tobacco-related health factor, from the [place] facility where the Encounter took place. Date/Time Current Smoking Status Comment Jg ity Nov 22, 2021 10:00 AM [place]-TOBACCO NEVER USED [facility] Tobacco Use History This section includes a history of the smoking, or tobacco-related health factors, that were collected on or before the date of the Encounter. The data comes from the [place] facility where the Encounter took place. Date/Time Smoking Status/Tobacco Use Comment F acgianfranco Sep 26, 2018 08:30 AM [place]-TO[place]AC[place] NEVER USED [facility] Jun 25, 2018 10:53 AM [place]AC[place] NEVER [facility] Dec 22, 2017 10:58 AM [place]-TOBACCO NEVER [facility]ED [facility] Jun 28, 2017 11:04 AM LIFETIME NON-USER OF TOBACCO [facility] Jun 21, 2017 09:54 AM LIFETIME NON-USER OF TOBAC CO non user [facility] May 10, 2017 09:43 AM LIFETIME NON-USER OF TOBAC CO never [facility] Feb 17, 2017 08:27 AM LIFETIME NON-USER OF TOBACCO [facility] January 14, 2016 02:12 PM LIFETIME NON-USER OF TOBACCO [facility] Radiology Reports: +/- 30 days of the [...] the Encounter. The data comes from all [place] treatment facilities. Date/Time Radiology Report Provider Source Dec 27, 2024 10:13 AM RIBS UNILAT+CHEST 3 OR MORE VIEWS: DAT GANNON [id number] -[phone] Ex Date: DEC 27, 2024@10:13 Req Phys: ALANA NOE Loc: [facility] 2ND SHIFT (R Img Loc: [facility] RADIOLOGY SUITE Service: [address] [address] (Case [id number] COMPLETE) RIBS UNILAT+CHEST 3 OR MORE VIEWS(RAD Series ) CPT:93364 Reason for Study: L SIDE RIB PAIN Clinical History: Report Status: Verified Date Reported: DEC 27, 2024 Date Verified: DEC 27, 2024 Poultry Scientist E-Sig:/ES/LUZ MAIRA MICHAELS MD Report: PA chest radiograph in [...] of left-sided rib fracture. No acute disease. I, Luz Maria Michaels, have reviewed the images and report and concur with these findings. Primary Interpreting Staff: LUZ MARIA MICHAELS MD, Radiologist (Poultry Scientist) Primary Interpreting Resident: BRENTON PRESLEY, Resident Physician /LUZ MARIA SUH [facility] Encounter Notes: All associated encounter notes This section contains the clinical notes associated to the Encounter. Date/Time Encounter Note(s) Provider Source Dec 31, 2024 10:17 AM PSYCHOLOGY OUTPATI ENT NOTE: LOCAL TITLE: PRIMARY CARE PSYCHOLOGY NOTE [facility] STANDARD TITLE: PSYCHOLOGY OUTPATIENT NOTE DATE OF NOTE: DEC 31, 2024@10:17 ENTRY DATE: DEC 31, 2024@10:17:44 AUTHOR: ANGELI BECERRIL COSIGNER: URGENCY: STATUS: COMPLETED NAME: DAT GANNON DATE OF : Feb TIME SPENT WITH PATIENT: 30 minutes DIAGNOSIS BEING TREATED: Depressive D/O d/t Another Medical Condition, Relationship Distress with Spouse CPT Code: 30896 NATURE OF ENCOUNTER: follow up visit SESSION FORMAT: [X] Gskh-hp-Pyam [ ] Video Telehealth [ ]Phone Confirmed 's location and phone number for virtual appointment. [ ]Yes [X]N/A SESSION NUMBER: [id number] ( seen for additional sessions than traditional course of tx within [facility] d/t ongoing changes in medical circumstances) RELEVANT HISTORICAL DEVELOPMENTS SINCE LAST CONTACT: - moved into new home, Ex Dept visit last week d/t injury that occurred while moving - ongoing concerns r/t physical health and well-being INTERVENTION/TREATMENT PROVIDED [X] [place] [X] Shared [...] by Therapist: - Assessed sxs and fx'ing. Increased mood/depressive sxs reported. Reports ongoing stress/anxiety r/t medical conditions, citing ongoing lack of a clear plan for treatment, as well as financial concerns s/t move to new home. Continued assisting with processing thoughts and feelings r/t stressors. Continued providing with empathetic and supportive listening and appropriate validation. Assisted with challenging identified distorted cognitions. Reviewed mood and stress/anxiety management strategies. Reviewed importance of self-care and discussed strategies to assist with engagement. - Discussed recent sleep experience in detail. reports ongoing experience of vivid dreams, noting that these tend to be positive in nature. Discussed difficulty with obtaining and maintaining sleep. attributes increased insomnia to adjusting to new bedroom, noting that he is currently sleeping on mattress on the floor. Reviewed sleep hygiene guidelines. - Continued discussing discord within marital relationship. Discussed move to new home and 's coping with such. continues to endorse regret r/t decision to move. Continued providing with empathetic and supportive listening and appropriate validation. Continued assisting with processing related thoughts and feelings and challenging identified distorted cognitions. Discussed strategies to assist with processing thoughts and feelings of regret. Reviewed communication strategies and encouraged ongoing use. ASSESSMENT MEASURES USED: [X] Self-Report Questionnaires: See Mental Health Diagnostic Study dated today, Jan 03, for details regarding endorsements for specific sxs. PHQ-9 = 12 (Q#9=0); indicative of depressive sxs being reported in the Moderate range. Score = 8 (Q#9=0; Mild range) when administered on Sep 03. BARRIE-7 = 11; indicative of anxiety sxs being reported in the Moderate range. Score = 9 (Mild range) when administered on Sep 03. ROS: Sleep: Increased Initial and Middle Insomnia Interest: decreased, increased anhedonia Guilt: Continues to endorse occasional experience Energy: continues to endorse frequent anergia (continues to attribute to pulmonary and cardiac issues) Concentration: decreased Appetite: Remains WNL Psychomotor: WNL upon observation, continues to report feeling sluggish d/t degree of experienced anergia Collaboratively discussed outcomes related to assessment and treatment progress and measures will continue to be monitored. MEASURABLE TREATMENT GOALS FOR THIS EPISODE OF CARE: Goals were developed with using shared decision making 1. GOAL/OBJECTIVES: improve mood state PROGRESS TOWARDS GOAL: increased mood sxs reported 2. GOAL/OBJECTIVES: increase physical fx'ing PROGRESS TOWARDS GOAL: continues to experience significant anergia, reports met with cardiology and is waiting to learn recommendations (states that his case was sent for review) RESPONSE TO INTERVENTIONS: Veterans participation/engagement: [X]The participated actively in the current interventions. [ ]Other: The continues to consent to the current plan of care: Yes Comments: RISK ASSESSMENT: [X] CHANGES IN RISK FACTORS Related to Suicide or Homicide endorsed during today's encounter: increased mood sxs, including increased frequency of feeling down, endorsed. did not report any current suicidal/homicidal ideation, plan, or intent. did not appear to be at imminent risk for suicide or homicide at this time and is considered sustainable at the current level of care. -CLINICAL JUDGMENT AND DISPOSITION: [X] In consideration of relevant risk and protective factors, the [place] did NOT appear to be at imminent risk for suicide or homicide at this time and IS sustainable at the current level of care. -Comments: [place] was asked directly and denied SI/HI, to [...] [X] No changes to plan of care. [place] expressed agreement with therapy tasks and [id number] plan. RTC placed for f/u appt. /es/ ANGELI BECERRIL, PH.D. Clinical Psychologist; [facility] Signed: 12/31/2024 10:55 ANGELI BECERRIL [facility]
--- OUTSIDE RECORDS SUMMARY | 2025-01-14 11:44 | XMS_ITS | Encounter Summary ---
Author Name [facility] [facility] [place] Address [address] [place] [address] Care Team Providers Care Mental Health Worker Name Role Phone HELEN MATTHEWS Primary Care [...] PART A Feb 09, 2019 PART A [id number] ANA GANNON EPH PATIENT MEDICARE (WNR) MEDICARE (M) PART B Feb 09, 2019 PART B [id number] ANA GANNON EPH PATIENT MEDICARE (WNR) MEDICARE (M) PART A Feb 09, 2019 PART A [id number] ANA GANNON EPH PATIENT MEDICARE (WNR) MEDICARE (M) PART B Feb 09, 2019 PART B [id number] ANA GANNON PATIENT MEDICARE (WNR) MEDICARE (M) PART A Feb 09, 2019 PART A [id number] [phone] ANA GANNON EPH PATIENT MEDICARE (WNR) MEDICARE (M) PART B Feb 09, 2019 PART B [id number] ANA GANNON PATIENT MEDICARE PART D (WNR) MEDICARE (M) PART D Sep 11, 2019 PART D [id number] [phone] ANA GANNON PATIENT Selected Encounter This section includes the information on record at [place] for the Encounter. Date/Time Encounter Type Encounter Description Reason Provider Source January 14, 2025 04:44 PM OFFICE O/P EST SF 10 MIN RENAL/NEPHROL(EXCE PT DIALYSIS) ICD-10-CM Z48.22 Encounter for aftercare following kidney transplant SRI WINTERS Suzette Encounter Template Text not used by [place] Assessments - Encounter Diagnoses This section includes the primary and secondary diagnoses documented for the Encounter. Date/Time Primary/Secondary Diagnosis Diagnosis Name Provider Source January 15, 2025 07:25 PM PRIMARY Encounter for aftercare following kidney transplant SRI WINTERS [facility] Plan of Treatment: Future Appointments (+ 6 months) and Future Tests (+/- 45 days) The Plan of Treatment section includes future care activities for the patient from all [place] treatmentfacilities. This section includes future appointments and [...] - MEDICINE [facility] February 06, 2025 10:00 AM AMBULATORY - MEDICINE [facility] Mar 06, 2025 10:00 AM AMBULATORY - MEDICINE [facility] Mar 18, 2025 11:00 AM AMBULATORY - MEDICINE [facility] Mar 25, 2025 01:00 PM AMBULATORY - MEDICINE [facility] Mar 27, 2025 12:15 PM AMBULATORY - MEDICINE [facility] Mar 27, 2025 12:30 PM AMBULATORY - MEDICINE [facility] Apr 07, 2025 08:30 AM AMBULATORY - MEDICINE [facility] Apr 10, 2025 10:00 AM [facility] Apr 22, 2025 11:00 AM AMBULATORY - MEDICINE [facility] May 19, 2025 12:15 PM AMBULATORY - MEDICINE [facility] May 28, 2025 10:00 AM AMBULATORY - REHAB MEDICIN E [facility] May 30, 2025 10:00 AM AMBULATORY - MEDICINE [facility] Jun 12, 2025 09:30 AM AMBULATORY - MEDICINE [facility] Lab Results: +/- 30 days of [...] Unit Interpretation Reference Range Specimen Type Comment Feb 11, 2025 08:40 AM [facility] TACROLIMUS (STL-PB) BLOOD Specimen Type: BLOOD No comment entered. Ordering Provider: SRI WINTERS Report Released Date/Time: Sep 27, 2024 12:13 PM Reporting Lab: [facility] [address] [facility] [address] Performing Lab: [facility] [address] [facility] [address] TACROLIMUS (STL-PB) 4.8 ng/mL Feb 11, 2025 08:40 AM [facility] URINALYSIS (STL-PB) URINE Specimen Type: URIN E No comment entered. Ordering Provider: SRI WINTERS Report Released Date/Time: Sep 27, 2024 12:13 PM Reporting Lab: [place] [id number] [facility] [address] Performing Lab: [facility] [address] [facility] [address] URINE COLOR Light-Yellow Yellow U.BILIRUBIN Negative mg/dL Negative U.PH 5.5 5.0-8.0 APPEARANCE Clear Clear U.NITRITE Negative mg/dL Negative URN.GLUCOSE 100 mg/dL H Negative URN.PROTEIN 10 mg/dL H URN.UROBILINOGEN Normal mg/dL Normal URN.BLOOD Negative mg/dL Negative-Trace URN.KETONES Negative mg/dL Negative-Trac e URN.LEUK.EST. Negative mg/dL Negative-Tr malu URN.SPECIFIC GRAVITY 1.020 Feb 11, 2025 08:40 AM [facility] RENAL PANEL PLASMA Specimen Type: PLASM A Comment: No hemolysis noted. Ordering Provider: SRI WINTERS Report Released Date/Time: Sep 27, 2024 12:13 PM Reporting Lab: [address] [address] Performing Lab: [address] [address] CREATININE 1.64 mg/dL H 0.7-1.3 UREA NITROGEN 40.9 mg/dL H 9.0-25.0 GLUCOSE 161 mg/dL H 72-99 SODIUM 136 meq/L 136-145 POTASSIUM 5.1 meq/L H 3.5-5 CHLORIDE 111 meq/L H 98-107 CARBON DIOXIDE 17 meq/L L 22-31 CALCIUM 9.0 mg/dL 8.4-10.4 PHOSPHOROUS 4.2 mg/dL 2.3-4.7 ALBUMIN 3.5 g/dL 3.4-5 EGFR (CKD-EPI 2020) 44.7 >60 Feb 11, 2025 08:40 AM [facility] CBC BLOOD Specimen Type: BLOOD No comment entered. Ordering Provider: SRI WINTERS Report Released Date/Time: Sep 27, 2024 12:13 PM Reporting Lab: [address] [address] Performing Lab: [address] [address] WBC 7.5 10*3/uL 3.6-11.2 RBC 4.25 10*6/uL 4.10-5.70 HGB 12.9 g/dL L 13.1-16.8 HCT 39.2 38.2-48.4 MCV 92.2 fL 80.0-100.0 MCH 30.4 pg 27.0-34.0 MCHC 32.9 g/dL L 33.0-36.0 PLT 150 10*3/uL 150-400 MPV 10.2 fL 7.5-11.2 RDW 13.4 11.8-15.1 LYMPHOCYTES, AUTO % 15 MONOCYTES, AUTO % 7 NEUTROPHILS, AUTO % 73 EOSINOPHILS, AUTO % 4 BASOPHILS, AUTO % 1 LYMPHOCYTES, ABSOLUTE 1.12 10*3/uL 0.77- 4.50 MONOCYTES, ABSOLUTE 0.51 10*3/uL 0.19-0. 80 NEUTROPHILS, ABSOLUTE 5.46 10*3/uL 2.10- 8.00 EOSINOPHILS, ABSOLUTE 0.33 10*3/uL 0.00- 0.60 BASOPHILS, ABSOLUTE 0.08 10*3/uL 0.00-0. 20 January 13, 2025 08:22 AM [facility] TACROLIMUS (STL-PB) BLOOD Specimen Type: BLOO D No comment entered. Ordering Provider: SRI WINTERS Report Released Date/Time: Sep 27, 2024 12:13 PM Reporting Lab: [address] [address] Performing Lab: [address] [address] TACROLIMUS (STL-PB) 6.5 ng/mL January 13, 2025 08:22 AM [facility] RENAL PANEL PLASMA Specimen Type: PLASM A Comment: No hemolysis noted. Ordering Provider: SRI WINTERS Report Released Date/Time: Sep 27, 2024 12:13 PM Reporting Lab: [address] [address] Performing Lab: [address] [address] CREATININE 1.64 mg/dL H 0.7-1.3 UREA NITROGEN 32.2 mg/dL H 9.0-25.0 GLUCOSE 120 mg/dL H 72-99 SODIUM 136 meq/L 136-145 POTASSIUM 4.9 meq/L 3.5-5 CHLORIDE 109 meq/L H 98-107 CARBON DIOXIDE 24 meq/L 22-31 CALCIUM 8.8 mg/dL 8.4-10.4 PHOSPHOROUS 4.2 mg/dL 2.3-4.7 ALBUMIN 3.5 g/dL 3.4-5 EGFR (CKD-EPI 2020) 44.7 >60 January 13, 2025 08:22 AM [facility] URINALYSIS (STL-PB) URINE Specimen Type: URIN E No comment entered. Ordering Provider: SRI WINTERS Report Released Date/Time: Sep 27, 2024 12:13 PM Reporting Lab: [address] [address] Performing Lab: [address] [address] URINE COLOR Light-Yellow Yellow U.BILIRUBIN Negative mg/dL Negative U.PH 6.0 5.0-8.0 APPEARANCE Clear Clear U.NITRITE Negative mg/dL Negative URN.GLUCOSE 150 mg/dL H Negative URN.PROTEIN Negative mg/dL URN.UROBILINOGEN Normal mg/dL Normal URN.BLOOD Negative mg/dL Negative-Trace URN.KETONES Negative mg/dL Negative-Trac e URN.LEUK.EST. Negative mg/dL Negative-Tr malu URN.SPECIFIC GRAVITY 1.014 January 13, 2025 08:22 AM [facility] BASIC METABOLIC PANEL PLASMA Specimen Type: PL ASMA Comment: No hemolysis noted. Ordering Provider: DAVION SKINNER Report Released Date/Time: Dec 26, 2024 01:31 PM Reporting Lab: [address] [address] Performing Lab: [address] [address] CREATININE 1.64 mg/dL H 0.7-1.3 UREA NITROGEN 32.2 mg/dL H 9.0-25.0 GLUCOSE 120 mg/dL H 72-99 SODIUM 136 meq/L 136-145 POTASSIUM 4.9 meq/L 3.5-5 CHLORIDE 109 meq/L H 98-107 CARBON DIOXIDE 24 meq/L 22-31 CALCIUM 8.8 mg/dL 8.4-10.4 EGFR (CKD-EPI 2020) 44.7 >60 January 13, 2025 08:22 AM [facility] CBC BLOOD Specimen Type: BLOOD No comment entered. Ordering Provider: SRI WINTERS Report Released Date/Time: Sep 27, 2024 12:13 PM Reporting Lab: [facility] [address] [facility] [address] Performing Lab: [facility] [address] [facility] [address] WBC 5.4 10*3/uL 3.6-11.2 RBC 4.06 10*6/uL [...] 0.60 BASOPHILS, ABSOLUTE 0.09 10*3/uL 0.00-0. 20 Social History: Smoking Status [...] 12, 2024 02:09 PM VA-TOBACCO NEVER USED [facility] Tobacco Use History This section includes a history of the smoking, or tobacco-related health factors, that were collected on or before the date of the Encounter. The data comes from the [place] facility where the Encounter took place. Date/Time Smoking Status/Tobacco Use Comment F acility Nov 07, 2022 01:35 PM VA-TOBACCO NEVER USED [facility] Mar 17, 2021 07:44 PM ORYX ADMIT TOBACCO SCREEN NO [facility] Dec 18, 2020 11:14 PM VA-TOBACCO NEVER USED [facility] Dec 18, 2020 08:23 PM ORYX ADMIT TOBACCO SCREEN NO [facility] Nov 14, 2006 01:52 PM LIFETIME NON-USER OF TOBACCO [facility] Nov 22, 2005 02:20 PM LIFETIME NON-TOBACCO USER [facility] Dec 08, 2004 01:37 PM LIFETIME NON-TOBACCO USER [facility] Jul 28, 2004 01:13 PM LIFETIME NON-TOBACCO USER [facility] Jul 09, 2003 01:05 PM LIFETIME NON-TOBACCO USER [facility] Jun 26, 2002 02:05 PM LIFETIME NON-TOBACCO USER [facility] May 23, 2001 01:12 PM LIFETIME NON-TOBACCO USER [facility] Jun 14, 2000 01:24 PM LIFETIME NON-TOBACCO USER [facility] Radiology Reports: +/- 30 days of [...] comes from all [facility] facilities. Date/Time Radiology Report Provider Source Dec 27, 2024 10:13 AM [facility] UNILAT+CHEST 3 OR MORE VIEWS: DAT GANNON [id number] [phone] M Exm Date: DEC 27, 2024@10:13 Req Phys: ALANA NOE Loc: [facility] 2ND SHIFT (R Img Loc: [facility] RADIOLOGY SUITE Service: Unknown [facility] [address] [place] [address] (Case [id number] COMPLETE) [facility] UNILAT+CHEST 3 OR MORE VIEWS(RAD Series ) CPT:20596 Reason for Study: L SIDE RIB PAIN Clinical History: Report Status: Verified Date Reported: DEC 27, 2024 Date Verified: DEC 27, 2024 Student Life Advisor E-Sig:/ES/LUZ MARIA MICHAELS MD Report: PA chest [...] Interpreting Staff: LUZ MARIA MICHAELS MD, Radiologist (Student Life Advisor) Primary Interpreting Resident: BRENTON PRESLEY, Resident Physician /LUZ MARIA [facility] Encounter Notes: All associated encounter notes This section contains the clinical notes associated to the Encounter. Date/Time Encounter Note(s) Provider Source January 14, 2025 04:44 PM INTERNAL MEDICINE NOTE: LOCAL TITLE: MEDICINE SERVICE E-ASSESSMENT ST STANDARD TITLE: INTERNAL MEDICINE NOTE DATE OF NOTE: JANUARY 14, 2025@16:44 ENTRY DATE: JANUARY 14, 2025@16:44:34 AUTHOR: SRI WINTERS EXP COSIGNER: URGENCY: STATUS: COMPLETED Reviewed labs and noted that cr is better at 1.5-1.6 from 2. Lytes stable. UA with no protein. Tacro level in range. Also noted that pt called to schedule next appt at [facility] and he is scheduled for March. No changes at this time. Time spent in minutes:5 min /charly/ Sri Winters MD STAFF PHYSICIAN - NEPHROLOGY Signed: 01/14/2025 16:[address] [facility]
--- OUTSIDE RECORDS SUMMARY | 2025-01-30 05:00 | XMS_ITS | Encounter Summary ---
Author Name [facility] [place] [facility] [place] Address [address] [place] [address] Care Team Providers Care Sawmill Hand Name Role Phone HELEN MATTHEWS Primary Care [...] PART A Feb 09, 2019 PART A [id number] ANA GANNON EPH PATIENT MEDICARE (WNR) MEDICARE (M) PART B Feb 09, 2019 PART B [id number] ANA GANNON EPH PATIENT MEDICARE (WNR) MEDICARE (M) PART A Feb 09, 2019 PART A [id number] ANA GANNON EPH PATIENT MEDICARE (WNR) MEDICARE (M) PART B Feb 09, 2019 PART B [id number] ANA GANNON PATIENT MEDICARE (WNR) MEDICARE (M) PART B Feb 09, 2019 PART B [id number] [phone] ANA GANNON PATIENT MEDICARE (WNR) MEDICARE (M) PART A Feb 09, 2019 PART A [id number] [phone] ANA GANNON PATIENT MEDICARE PART D (WNR) MEDICARE (M) PART D Sep 11, 2019 PART D [id number] [phone] ANA GANNON PATIENT Selected Encounter This section includes the information on record at [place] for the Encounter. 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 This section includes future appointments and future orders which are active, pending or scheduled. Future Appointments This section includes appointments that were scheduled to occur 6 months from the date of the Encounter, up to a maximum of 20 appointments. The data comes from all [place] treatment facilities. Appointment Date/Time Appointment Type Appointme nt Facility Name February 06, 2025 10:00 AM AMBULATORY - MEDICINE [facility] Mar 06, 2025 10:00 AM AMBULATORY - MEDICINE [facility] Mar 18, 2025 11:00 AM AMBULATORY - MEDICINE [facility] Mar 25, 2025 01:00 PM AMBULATORY - MEDICINE [facility] Mar 27, 2025 12:15 PM AMBULATORY - MEDICINE [facility] Mar 27, 2025 12:30 PM AMBULATORY - MEDICINE [facility] Apr 07, 2025 08:30 AM AMBULATORY - MEDICINE [facility] Apr 10, 2025 10:00 AM AMBULATORY - MEDICINE [facility] Apr 22, 2025 11:00 AM AMBULATORY - MEDICINE [facility] May 19, 2025 12:15 PM AMBULATORY - MEDICINE [facility] May 28, 2025 10:00 AM AMBULATORY - REHAB MEDICIN E [facility] May 30, 2025 10:00 AM AMBULATORY - MEDICINE [facility] Jun 12, 2025 09:30 AM AMBULATORY - MEDICINE [facility] Lab Results: +/- 30 days of [...] Type Comment Feb 11, 2025 08:40 AM [facility] TACROLIMUS (STL-PB) BLOOD Specimen Type: BLOOD No comment entered. Ordering Provider: FRANCISCO DAILY Report Released Date/Time: Sep 27, 2024 12:13 PM Reporting Lab: [facility] [address] [facility] [address] Performing Lab: [facility] [address] [facility] [address] TACROLIMUS (STL-PB) 4.8 ng/mL Feb 11, 2025 08:40 AM [facility] URINALYSIS (STL-PB) URINE Specimen Type: URIN E No comment entered. Ordering Provider: FRANCISCO DAILY Report Released Date/Time: Sep 27, 2024 12:13 PM Reporting Lab: [place] [address] [facility] [address] Performing Lab: [address] [address] URINE COLOR Light-Yellow Yellow U.BILIRUBIN Negative mg/dL Negative U.PH 5.5 5.0-8.0 APPEARANCE Clear Clear U.NITRITE Negative mg/dL Negative URN.GLUCOSE 100 mg/dL H Negative URN.PROTEIN 10 mg/dL H URN.UROBILINOGEN Normal mg/dL Normal URN.BLOOD Negative mg/dL Negative-Trace URN.KETONES Negative mg/dL Negative-Trac e URN.LEUK.EST. Negative mg/dL Negative-Tr malu URN.SPECIFIC GRAVITY 1.020 Feb 11, 2025 08:40 AM [facility] RENAL PANEL PLASMA Specimen Type: PLASM A Comment: No hemolysis noted. Ordering Provider: FRANCISCO DAILY Report Released Date/Time: Sep 27, 2024 12:13 PM Reporting Lab: [address] [address] Performing Lab: [address] [address] CREATININE 1.64 mg/dL H 0.7-1.3 UREA NITROGEN 40.9 mg/dL H 9.0-25.0 GLUCOSE 161 mg/dL H 72-99 SODIUM 136 meq/L 136-145 POTASSIUM 5.1 meq/L H 3.5-5 CHLORIDE 111 meq/L H 98-107 CARBON DIOXIDE 17 meq/L L 22-31 CALCIUM 9.0 mg/dL 8.4-10.4 PHOSPHOROUS 4.2 mg/dL 2.3-4.7 ALBUMIN 3.5 g/dL 3.4-5 EGFR (CKD-EPI 2020) 44.7 >60 Feb 11, 2025 08:40 AM [facility] CBC BLOOD Specimen Type: BLOOD No comment entered. Ordering Provider: FRANCISCO DAILY Report Released Date/Time: Sep 27, 2024 12:13 PM Reporting Lab: [address] [address] Performing Lab: [address] [address] WBC 7.5 10*3/uL 3.6-11.2 RBC 4.25 10*6/uL [...] 0.00-0. 20 January 13, 2025 08:22 AM [facility] TACROLIMUS (STL-PB) BLOOD Specimen Type: BLOO D No comment entered. Ordering Provider: FRANCISCO DAILY Report Released Date/Time: Sep 27, 2024 12:13 PM Reporting Lab: [place] [address] [facility] [address] Performing Lab: [address] [address] TACROLIMUS (STL-PB) 6.5 ng/mL January 13, 2025 08:22 AM [facility] URINALYSIS (L-PB) URINE Specimen Type: URIN E No comment entered. Ordering Provider: FRANCISCO DAILY Report Released Date/Time: Sep 27, 2024 12:13 PM Reporting Lab: [place] [address] [facility] [address] Performing Lab: [address] [address] URINE COLOR Light-Yellow Yellow U.BILIRUBIN Negative mg/dL Negative U.PH 6.0 5.0-8.0 APPEARANCE Clear Clear U.NITRITE Negative mg/dL Negative URN.GLUCOSE 150 mg/dL H Negative URN.PROTEIN Negative mg/dL URN.UROBILINOGEN Normal mg/dL Normal URN.BLOOD Negative mg/dL Negative-Trace URN.KETONES Negative mg/dL Negative-Trac e URN.LEUK.EST. Negative mg/dL Negative-Tr malu URN.SPECIFIC GRAVITY 1.014 January 13, 2025 08:22 AM [facility] RENAL PANEL PLASMA Specimen Type: PLASM A Comment: No hemolysis noted. Ordering Provider: FRANCISCO DAILY Report Released Date/Time: Sep 27, 2024 12:13 PM Reporting Lab: [address] [address] Performing Lab: [address] [address] CREATININE 1.64 mg/dL H 0.7-1.3 UREA NITROGEN 32.2 mg/dL H 9.0-25.0 GLUCOSE 120 mg/dL H 72-99 SODIUM 136 meq/L 136-145 POTASSIUM 4.9 meq/L 3.5-5 CHLORIDE 109 meq/L H 98-107 CARBON DIOXIDE 24 meq/L 22-31 CALCIUM 8.8 mg/dL 8.4-10.4 PHOSPHOROUS 4.2 mg/dL 2.3-4.7 ALBUMIN 3.5 g/dL 3.4-5 EGFR (CKD-EPI 2020) 44.7 >60 January 13, 2025 08:22 AM [facility] BASIC METABOLIC PANEL PLASMA Specimen Type: PL ASMA Comment: No hemolysis noted. Ordering Provider: DAVION SKINNER Report Released Date/Time: Dec 26, 2024 01:31 PM Reporting Lab: [address] [address] Performing Lab: [address] [address] CREATININE 1.64 mg/dL H 0.7-1.3 UREA NITROGEN 32.2 mg/dL H 9.0-25.0 GLUCOSE 120 mg/dL H 72-99 SODIUM 136 meq/L 136-145 POTASSIUM 4.9 meq/L 3.5-5 CHLORIDE 109 meq/L H 98-107 CARBON DIOXIDE 24 meq/L 22-31 CALCIUM 8.8 mg/dL 8.4-10.4 EGFR (CKD-EPI 2020) 44.7 >60 January 13, 2025 08:22 AM [facility] CBC BLOOD Specimen Type: BLOOD No comment entered. Ordering Provider: FRANCISCO DAILY Report Released Date/Time: Sep 27, 2024 12:13 PM Reporting Lab: [facility] [address] [facility] [address] Performing Lab: [facility] [address] [facility] [address] WBC 5.4 10*3/uL 3.6-11.2 RBC 4.06 10*6/uL [...] and tobacco- related health factors from the [place] facility where the Encounter took place. Current Smoking Status This section includes the most current smoking, or tobacco-related health factor, from the [place] facility where the Encounter took place. Date/Time Current Smoking Status Comment Jg crowe Nov 22, 2021 10:00 AM VA-TOBACCO NEVER USED [facility] Tobacco Use History This section includes a history of the smoking, or tobacco-related health factors, that were collected on or before the date of the Encounter. The data comes from the [place] facility where the Encounter took place. Date/Time Smoking Status/Tobacco Use Comment F acility Sep 26, 2018 08:30 AM VA-TOBACCO [facility] Jun 25, 2018 10:53 AM VA-TOBACCO [facility] Dec 22, 2017 10:58 AM VA-TOBACCO [facility] Jun 28, 2017 11:04 AM LIFETIME NON-USER OF TOBACCO [facility] Jun 21, 2017 09:54 AM LIFETIME NON-USER OF TOBAC [place] non user . [facility] May 10, 2017 09:43 AM LIFETIME NON-USER OF TOBAC CO never . [facility] Feb 17, 2017 08:27 AM LIFETIME NON-USER OF TOBACCO . [facility] January 14, 2016 02:12 PM LIFETIME NON-USER OF TOBACCO . [facility] Encounter Notes: All associated encounter notes This section contains the clinical notes associated to the Encounter. Date/Time Encounter Note(s) Provider Source January 30, 2025 09:53 AM PSYCHOLOGY OUTPATI ENT NOTE: LOCAL TITLE: PRIMARY CARE PSYCHOLOGY NOTE [facility] STANDARD TITLE: PSYCHOLOGY OUTPATIENT NOTE DATE OF NOTE: JANUARY 30, 2025@09:53 ENTRY DATE: JANUARY 30, 2025@09:53:19 AUTHOR: ANGELI BECERRIL EXP COSIGNER: URGENCY: STATUS: COMPLETED PRIMARY CARE PSYCHOLOGY NOTE [facility] Has ADDENDA NAME: DAT GANNON DATE OF : Feb TIME SPENT WITH PATIENT: 30 minutes DIAGNOSIS BEING TREATED: Depressive D/O d/t Another Medical Condition, Relationship Distress with Spouse CPT Code: 97458 NATURE OF ENCOUNTER: follow up visit SESSION FORMAT: [X] [id number] [ ] Video Telehealth [ ]Phone Confirmed 's location and phone number for virtual appointment. [ ]Yes [X]N/A SESSION NUMBER: 17 ( seen for additional sessions than traditional course of tx within [facility] d/t ongoing changes in medical circumstances) RELEVANT HISTORICAL DEVELOPMENTS SINCE LAST CONTACT: - scheduled for echocardiogram next week INTERVENTION/TREATMENT PROVIDED [X] [place] [X] Shared [...] by Therapist: - Assessed sxs and fx'ing. Mood/depressive and anxiety sxs remain elevated, but appear stable. Denies any significant change in external stressors (i.e., medical conditions and financial concerns s/t moving into new home). Continued assisting with processing thoughts and feelings r/t stressors. Continued providing with empathetic and supportive listening and appropriate validation. Continued assisting with challenging identified distorted cognitions. Reviewed mood and stress/anxiety management strategies. Reviewed importance of self-care and discussed strategies to assist with engagement. - Discussed recent sleep experience in detail. Ongoing experience of vivid dreams, with continuing to report that these tend to be positive in nature. Reports some improvement with obtaining and maintaining sleep. Reviewed sleep hygiene guidelines. - Continued discussing discord within marital relationship. Continued discussing move to new home and 's coping with such. [place] continues to endorse regret r/t decision to move. Continued providing with empathetic and supportive listening and appropriate validation. Continued assisting with processing related thoughts and feelings and challenging identified distorted cognitions. Reviewed strategies to assist with processing thoughts and feelings of regret. Reviewed communication strategies and encouraged ongoing use. ASSESSMENT MEASURES USED: PHQ-9 not administered during today's encounter. Score = 12 (Q#9=0; Moderate range) when administered on Jan 03. BARRIE-7 not administered during today's encounter. Score = 11 (Moderate range) when administered on Jan 03. [X]Functional/Symptom Assessment: Symptom(s)/Function(s) tracked by changes in frequency, intensity or duration since last visit: sxs remain elevated, but appear stable; continues to struggle with adjustment to new home and resulting stress associated with such ROS: Sleep: Ongoing Initial and Middle Insomnia, but decrease/improvement in sleep continuity reported s/t receiving new bed and being able to complete move in for new bedroom Interest: remains decreased Guilt: Continues to endorse occasional experience Energy: continues to endorse frequent anergia (continues to attribute to pulmonary and cardiac issues), notes minimal improvement in energy level/decrease in fatigue s/t experienced improvement in sleep Concentration: remains decreased Appetite: Remains WNL Psychomotor: WNL upon [...] TOWARDS GOAL: continues to experience significant anergia, ongoing stress r/t perceived lack of clear tx plan for medical concerns RESPONSE TO INTERVENTIONS: Veterans participation/engagement: [X]The [place] participated actively in the current interventions. [ ]Other: [facility] [place] continues to consent to the current plan of care: Yes Comments: RISK ASSESSMENT: [X] NO CHANGES IN RISK FACTORS Related to Suicide or Homicide endorsed during today's encounter. [place] did not report any current suicidal/homicidal ideation, plan, or intent. [place] did not appear to be at imminent risk for suicide or homicide at this time and is considered sustainable at the current level of care. -CLINICAL JUDGMENT AND DISPOSITION: [X] In consideration of relevant risk and protective factors, the [place] did NOT appear to be at imminent risk for suicide or homicide at this time and IS sustainable at the current level of care. -Comments: [place] was asked directly and denied SI/HI, to [...] [X] No changes to plan of care. expressed agreement with therapy tasks and [id number] plan. RTC placed for f/u appt. /es/ ANGELI BECERRIL, PH.D. Clinical Psychologist; [facility] Signed: 01/30/2025 11:02 03/06/2025 ADDENDUM STATUS: COMPLETED correction to portion of note: MEASURABLE TREATMENT GOALS FOR THIS EPISODE OF CARE: Goals were developed with using shared decision making 1. GOAL/OBJECTIVES: improve mood state PROGRESS TOWARDS GOAL: sxs remain elevated, but appear stable /charly/ ANGELI BECERRIL, PH.D. Clinical Psychologist; [facility] Signed: 03/06/2025 10:23 ANGELI BECERRIL [facility]
--- OUTSIDE RECORDS SUMMARY | 2025-02-14 10:34 | XMS_ITS | Encounter Summary ---
Author Name [facility] [place] [facility] [place] Address [address] [place] [address] Care Team Providers Care Market Risk Manager Name Role Phone HELEN MATTHEWS Primary [...] PART A Feb 09, 2019 PART A [id number] ANA GANNON EPH PATIENT MEDICARE (WNR) MEDICARE (M) PART B Feb 09, 2019 PART B [id number] ANA GANNON EPH PATIENT MEDICARE (WNR) MEDICARE (M) PART A Feb 09, 2019 PART A [id number] [phone] [id number] ANA GANNON EPH PATIENT MEDICARE (WNR) MEDICARE (M) PART B Feb 09, 2019 PART B [id number] ANA GANNON PATIENT MEDICARE (WNR) MEDICARE (M) PART A Feb 09, 2019 PART A [id number] ANA GANNON EPH PATIENT MEDICARE (WNR) MEDICARE (M) PART B Feb 09, 2019 PART B [id number] [phone] ANA GANNON PATIENT MEDICARE PART D (WNR) MEDICARE (M) PART D Sep 11, 2019 PART D [id number] ANA GANNON PATIENT Selected Encounter This section includes the information on record at [place] for the Encounter. Date/Time Encounter Type Encounter Description Reason Provider Source Feb 14, 2025 03:34 PM REM INTERROG EVL PM/LDLS PM CIED DEVICES ICD-10-CM R00.1 Bradycardia, unspecified DAVION SKINNER IHSuzette Encounter Template Text not used by [place] Assessments - Encounter Diagnoses This section includes the primary and secondary diagnoses documented for the Encounter. Date/Time Primary/Secondary Diagnosis Diagnosis Name Provider Source Feb 20, 2025 07:49 AM PRIMARY Bradycardia, unspecified CLAIRE ZHU [facility] Feb 20, 2025 07:49 AM SECONDARY Presence of cardiac pacemaker CLAIRE ZHU [facility] Plan of Treatment: Future Appointments (+ [...] Date/Time Appointment Type Appointme nt Facility Name Mar 06, 2025 10:00 AM AMBULATORY - MEDICINE [facility] Mar 18, 2025 11:00 AM AMBULATORY - MEDICINE [facility] Mar 25, 2025 01:00 PM AMBULATORY - MEDICINE [facility] Mar 27, 2025 12:15 PM AMBULATORY - MEDICINE [facility] Mar 27, 2025 12:30 PM AMBULATORY - MEDICINE [facility] Apr 07, 2025 08:30 AM AMBULATORY - MEDICINE [facility] Apr 10, 2025 10:00 AM AM[facility]ORY - MEDICINE [facility] Apr 22, 2025 11:00 AM AMBULATORY - MEDICINE [facility] May 19, 2025 12:15 PM AMBULATORY - MEDICINE [facility] May 28, 2025 10:00 AM AMBULATORY - REHAB MEDICIN E [facility] May 30, 2025 10:00 AM AMBULATORY - MEDICINE [facility] Jun 12, 2025 09:30 AM AMBULATORY - MEDICINE [facility] Active, Pending, and Scheduled Orders This section [...] Date/Time Test Type Test Details Facility Name Mar 27, 2025 02:19 PM Consult Order [facility]OPULM RE[facility]AB [facility] OUTPATIENT FATEMEH Cons Security Ambassador's Choice [facility] Lab Results: +/- 30 days of the [...] Unit Interpretation Reference Range Specimen Type Comment Mar 11, 2025 08:33 AM [facility] HGA1C BLOOD Specimen Type: BLOOD No comment entered. Ordering Provider: FRANCISCO DAILY Report Released Date/Time: Sep 27, 2024 12:13 PM Reporting Lab: [facility] [address] [address] [address] [address] Performing Lab: [address] [address] HGA1C 8.1 H 4.0-6.0 Mar 11, 2025 08:33 AM [facility] TACROLIMUS (STL-PB) BLOOD Specimen Type: BLOO D No comment entered. Ordering Provider: FRANCISCO DAILY Report Released Date/Time: Sep 27, 2024 12:13 PM Reporting Lab: [facility] [address] [facility] [address] Performing Lab: [address] [address] TACROLIMUS (STL-PB) 5.5 ng/mL Mar 11, 2025 08:33 AM [facility] RENAL PANEL PLASMA Specimen Type: PLASM A Comment: No hemolysis noted. Ordering Provider: FRANCISCO DAILY Report Released Date/Time: Sep 27, 2024 12:13 PM Reporting Lab: [address] [address] Performing Lab: [address] [address] CREATININE 1.77 mg/dL H 0.7-1.3 UREA NITROGEN 34.2 mg/dL H 9.0-25.0 GLUCOSE 148 mg/dL H 72-99 SODIUM 134 meq/L L 136-145 POTASSIUM 4.5 meq/L 3.5-5 CHLORIDE 105 meq/L 98-107 CARBON DIOXIDE 23 meq/L 22-31 CALCIUM 9.3 mg/dL 8.4-10.4 PHOSPHOROUS 2.9 mg/dL 2.3-4.7 ALBUMIN 3.6 g/dL 3.4-5 EGFR (CKD-EPI 2020) 40.6 >60 Mar 11, 2025 08:33 AM [facility] CBC BLOOD Specimen Type: BLOOD No comment entered. Ordering Provider: FRANCISCO DAILY Report Released Date/Time: Sep 27, 2024 12:13 PM Reporting Lab: [address] [address] Performing Lab: [address] [address] WBC 6.5 10*3/uL 3.6-11.2 RBC 4.23 10*6/uL 4.10-5.70 HGB 12.8 g/dL L 13.1-16.8 HCT 37.5 L 38.2-48.4 MCV 88.7 fL 80.0-100.0 MCH 30.3 pg 27.0-34.0 MCHC 34.1 g/dL 33.0-36.0 PLT 171 10*3/uL 150-400 MPV 10.3 fL 7.5-11.2 RDW 12.5 11.8-15.1 LYMPHOCYTES, AUTO % 21 MONOCYTES, AUTO % 10 NEUTROPHILS, AUTO % 64 EOSINOPHILS, AUTO % 4 BASOPHILS, AUTO % 2 LYMPHOCYTES, ABSOLUTE 1.36 10*3/uL 0.77- 4.50 MONOCYTES, ABSOLUTE 0.62 10*3/uL 0.19-0. 80 NEUTROPHILS, ABSOLUTE 4.14 10*3/uL 2.10- 8.00 EOSINOPHILS, ABSOLUTE 0.29 10*3/uL 0.00- 0.60 BASOPHILS, ABSOLUTE 0.10 10*3/uL 0.00-0. 20 Feb 11, 2025 08:40 AM [facility] TACROLIMUS (STL-PB) BLOOD Specimen Type: BLOO D No comment entered. Ordering Provider: FRANCISCO DAILY Report Released Date/Time: Sep 27, 2024 12:13 PM Reporting Lab: [address] [address] Performing Lab: [address] [address] TACROLIMUS (STL-PB) 4.8 ng/mL Feb 11, 2025 08:40 AM [facility] URINALYSIS (L-PB) URINE Specimen Type: URIN E No comment entered. Ordering Provider: FRANCISCO DAILY Report Released Date/Time: Sep 27, 2024 12:13 PM Reporting Lab: [address] [address] Performing Lab: [address] [address] URINE COLOR Light-Yellow Yellow U.BILIRUBIN Negative mg/dL Negative U.PH 5.5 5.0-8.0 APPEARANCE Clear Clear U.NITRITE Negative mg/dL Negative URN.GLUCOSE 100 mg/dL H Negative URN.PROTEIN 10 mg/dL H URN.UROBILINOGEN Normal mg/dL Normal URN.BLOOD Negative mg/dL Negative-Trace URN.KETONES Negative mg/dL Negative-Trac e URN.LEUK.EST. Negative mg/dL Negative-Tr malu URN.SPECIFIC GRAVITY 1.020 Feb 11, 2025 08:40 AM [facility] RENAL PANEL PLASMA Specimen Type: PLASM A Comment: No hemolysis noted. Ordering Provider: FRANCISCO DAILY Report Released Date/Time: Sep 27, 2024 12:13 PM Reporting Lab: [address] [address] Performing Lab: [address] [address] CREATININE 1.64 mg/dL H 0.7-1.3 UREA NITROGEN 40.9 mg/dL H 9.0-25.0 GLUCOSE 161 mg/dL H 72-99 SODIUM 136 meq/L 136-145 POTASSIUM 5.1 meq/L H 3.5-5 CHLORIDE 111 meq/L H 98-107 CARBON DIOXIDE 17 meq/L L 22-31 CALCIUM 9.0 mg/dL 8.4-10.4 PHOSPHOROUS 4.2 mg/dL 2.3-4.7 ALBUMIN 3.5 g/dL 3.4-5 EGFR (CKD-EPI 2020) 44.7 >60 Feb 11, 2025 08:40 AM [facility] CBC BLOOD Specimen Type: BLOOD No comment entered. Ordering Provider: FRANCISCO DAILY Report Released Date/Time: Sep 27, 2024 12:13 PM Reporting Lab: [address] [address] Performing Lab: [address] [address] WBC 7.5 10*3/uL 3.6-11.2 RBC 4.25 10*6/uL [...] 0.60 BASOPHILS, ABSOLUTE 0.08 10*3/uL 0.00-0. 20 Social History: Smoking Status [...] Jg crowe Apr 12, 2024 02:09 PM [place]-TO[place]AC[place] NEVER USED [facility] Tobacco Use History This section includes a history of the smoking, or tobacco-related health factors, that were collected on or before the date of the Encounter. The data comes from the [place] facility where the Encounter took place. Date/Time Smoking Status/Tobacco Use Comment F acility Nov 07, 2022 01:35 PM [place]-TO[place] NEVER USED [facility] Mar 17, 2021 07:44 PM ORYX ADMIT TOBACCO SCREEN NO [facility] Dec 18, 2020 11:14 PM [place]-TOBACCO NEVER USED [facility] Dec 18, 2020 08:23 PM ORYX ADMIT TOBACCO SCREEN NO [facility] Nov 14, 2006 01:52 PM LIFETIME NON-USER OF TOBACCO [facility] Nov 22, 2005 02:20 PM LIFETIME NON-TOBACCO USER [facility] Dec 08, 2004 01:37 PM LIFETIME NON-TOBACCO USER [facility] Jul 28, 2004 01:13 PM LIFETIME NON-TOBACCO USER [facility] Jul 09, 2003 01:05 PM LIFETIME NON-TOBACCO USER [facility] Jun 26, 2002 02:05 PM LIFETIME NON-TOBACCO USER [facility] May 23, 2001 01:12 PM LIFETIME NON-TOBACCO USER [facility] Jun 14, 2000 01:24 PM LIFETIME NON-TOBACCO USER [facility] Encounter Notes: All associated encounter notes This section contains the clinical notes associated to the Encounter. Date/Time Encounter Note(s) Provider Source Feb 14, 2025 03:34 PM INTERVENTIONAL CAR DIOLOGY NOTE: LOCAL TITLE: CARDIOLOGY DEVICE SURVEILLANCE NOTE [facility] STANDARD TITLE: INTERVENTIONAL CARDIOLOGY NOTE DATE OF NOTE: FEB 14, 2025@15:34 ENTRY DATE: FEB 14, 2025@15:34:58 AUTHOR: KAELA ZHU COSIGNER: URGENCY: STATUS: COMPLETED CARDIOLOGY DEVICE SURVEILLANCE NOTE STL Has ADDENDA ALERT SEE [facility] IMAGING FOR FULL PDF PATIENT: DAT GANNON SSN: [id number] : 1955 DATE: 2025-02-14 02:51 SUMMARY: Alert Transmission Arrhythmia: - AFL/AF episodes noted, longest episode 6 minutes to < 24 hours Device/Lead(s): - No significant abnormalities - Available daily battery/lead measurements within expected range - Lead trends stable Feb 13, 2025 04:21 - Yellow Alert - Atrial automatic threshold detected as > programmed amplitude or suspended, r/t low evoked response. Remote programming change made: atrial auotmatic threshold alert has been turned off. [facility] Apprised BATTERY: 2 YEARS LEFT ALL ALEXANDRA MEASUREMENTS WNL (EXCEPT ATRIAL TH- SEE ABOVE) AF BURDEN: <1% LONGEST 3 HOURS 20 MIN VENTRICULAR EVENTS: NONE % PACING AP: 79% ROBOTICS TESTING TECHNICIAN: 1% F2F: MARCH 27 REMOTE: COMPLIANT RELEVANT MEDS: APIXABAN REASON FOR PACER: chronotropic incompetence. PACER: [employer] L311 ACCOLADE MRI SN: [id number] DOI: 12/19/2018 RA Lead: [employer] 7741/52 Ingevity MRI SN: [id number] DOI: 12/19/2018 RV Lead: Deemelo 7742/59 Ingevity MRI SN: [id number] DOI: 12/19/2018 /charly/ Kaela ZhuRN,BSN Registered Nurse Signed: 02/14/2025 15:49 Receipt Acknowledged By: 02/17/2025 09:20 /kaylyn SKINNER NP CARDIOLOGY/ELECTROPHYSIOLO GY CELLULOSE INSULATION HELPER 02/17/2025 ADDENDUM STATUS: COMPLETED Device download reviewed. Battery is adequate, will monitor lead function. Arrhythmias are as documented. Will continue device follow up through remote transmissions and/or routine device clinic appointments. All clinically important information has been communicated to the patient by myself, device clinic, the patient's stave inspector, or the patient's PCP. /charly/ DAVION SKINNER NP CARDIOLOGY/ELECTROPHYSIOLO GY CELLULOSE INSULATION HELPER Signed: 02/17/2025 09:21 KAELA ZHU [facility]
--- OUTSIDE RECORDS SUMMARY | 2025-02-17 19:51 | XMS_ITS | Encounter Summary ---
Author Name [facility] [place] Address [address] [place] [address] Care Team Providers Care Terminal Carman Name Role Phone HELEN MATTHEWS Primary Care [...] PART A Feb 09, 2019 PART A [id number] ANA GANNON EPH PATIENT MEDICARE (WNR) MEDICARE (M) PART B Feb 09, 2019 PART B [id number] ANA GANNON EPH PATIENT MEDICARE (WNR) MEDICARE (M) PART A Feb 09, 2019 PART A [id number] [phone] [id number] ANA GANNON EPH PATIENT MEDICARE (WNR) MEDICARE (M) PART B Feb 09, 2019 PART B [id number] ANA GANNON PATIENT MEDICARE (WNR) MEDICARE (M) PART B Feb 09, 2019 PART B [id number] ANA GANNON EPH PATIENT MEDICARE (WNR) MEDICARE (M) PART A Feb 09, 2019 PART A [id number] ANA GANNON PATIENT MEDICARE PART D (WNR) MEDICARE (M) PART D Sep 11, 2019 PART D [id number] ANA GANNON PATIENT Selected Encounter This section includes the information on record at [place] for the Encounter. Date/Time Encounter Type Encounter Description Reason Provider Source Feb 18, 2025 12:51 AM OFFICE O/P EST SF 10 MIN RENAL/NEPHROL(EXCE PT DIALYSIS) ICD-10-CM Z48.22 Encounter for aftercare following kidney transplant FRANCISCO WINTERS Suzette Encounter Template Text not used by [place] Assessments - Encounter Diagnoses This section includes the primary and secondary diagnoses documented for the Encounter. Date/Time Primary/Secondary Diagnosis Diagnosis Name Provider Source Feb 19, 2025 10:12 PM PRIMARY Encounter for aftercare following kidney transplant FRANCISCO WINTERS [facility] Feb 19, 2025 10:12 PM SECONDARY Chronic metabolic acidosis FRANCISCO WINTERS [facility] Plan of Treatment: Future Appointments (+ 6 months) and Future Tests (+/- 45 days) The Plan of Treatment section includes [facility] care [facility] the [facility] [place] [facility] This section includes future appointments and [...] 06, 2025 10:00 AM AMBULATORY - MEDICINE [facility] Mar 18, 2025 11:00 AM AMBULATORY - MEDICINE [facility] Mar 25, 2025 01:00 PM AMBULATORY - MEDICINE [facility] Mar 27, 2025 12:15 PM AMBULATORY - MEDICINE [facility] Mar 27, 2025 12:30 PM AMBULATORY - MEDICINE [facility] Apr 07, 2025 08:30 AM AMBULATORY - MEDICINE [facility] Apr 10, 2025 10:00 AM AMBULATORY - MEDICINE [facility] Apr 22, 2025 11:00 AM AMBULATORY - MEDICINE [facility] May 19, 2025 12:15 PM AMBULATORY - MEDICINE [facility] May 28, 2025 10:00 AM AMBULATORY - REHAB MEDICIN E [facility] May 30, 2025 10:00 AM AMBULATORY - MEDICINE [facility] Jun 12, 2025 09:30 AM AMBULATORY - MEDICINE [facility] Aug 20, 2025 09:15 AM AMBULATORY - MEDICINE [facility] Active, Pending, and Scheduled Orders This section includes a listing of several types of active, pending, and scheduled orders, including clinic medications orders, diagnostic test orders, procedure orders and consult orders; where the start date of the order is 45 days before the date of the Encounter or 45 days after the date of theEncounter. The data comes from all [place] treatment facilities. Test Date/Time Test Type Test Details Facility Name Mar 27, 2025 02:19 PM Consult Order CARDIOPULM REHAB CLINIC OUTPATIENT FATEMEH Cons Pyrotechnic Assembler's Choice [facility] Lab Results: +/- 30 days [...] Interpretation Reference Range Specimen Type Comment Mar 18, 2025 12:46 PM [facility] TSH W/ REFLEX FT4 (STL) PLASMA Specimen Type: PLASMA No comment entered. Ordering Provider: HELEN MATTHEWS Report Released Date/Time: Mar 18, 2025 11:52 AM Reporting Lab: [place] [address] [facility] [address] Performing Lab: [place] [address] [facility] [address] TSH 1.692 u[IU]/mL 0.47-5 Mar 18, 2025 12:46 PM [facility] IRON/TIBC PROFILE SERUM Specimen Type: SERUM No comment entered. Ordering Provider: HELEN MATTHEWS Report Released Date/Time: Mar 18, 2025 11:52 AM Reporting Lab: [address] [address] Performing Lab: [address] [address] TIBC 304 ug/dL 250-450 TRANSFERRIN 243 mg/dL 163-344 IRON SATURATION 23 20-50 IRON 69 ug/dL 65-175 Mar 18, 2025 12:46 PM [facility] URINALYSIS (STL-PB) URINE Specimen Type: URIN E No comment entered. Ordering Provider: FRANCISCO WINTERS Report Released Date/Time: Sep 27, 2024 12:13 PM Reporting Lab: [address] [address] Performing Lab: [address] [address] URINE COLOR Light-Yellow Yellow U.BILIRUBIN Negative mg/dL Negative U.PH 6.0 5.0-8.0 APPEARANCE Clear Clear U.NITRITE Negative mg/dL Negative URN.GLUCOSE Normal mg/dL Negative URN.PROTEIN Negative mg/dL URN.UROBILINOGEN Normal mg/dL Normal URN.BLOOD Negative mg/dL Negative-Trace URN.KETONES Negative mg/dL Negative-Trac e URN.LEUK.EST. Negative mg/dL Negative-Tr malu URN.SPECIFIC GRAVITY 1.019 Mar 11, 2025 08:33 AM [facility] HGA1C BLOOD Specimen Type: BLOOD No comment entered. Ordering Provider: FRANCISCO WINTERS Report Released Date/Time: Sep 27, 2024 12:13 PM Reporting Lab: [address] [address] Performing Lab: [address] [address] HGA1C 8.1 H 4.0-6.0 Mar 11, 2025 08:33 AM [facility] TACROLIMUS (STL-PB) BLOOD Specimen Type: BLOO D No comment entered. Ordering Provider: FRANCISCO WINTERS Report Released Date/Time: Sep 27, 2024 12:13 PM Reporting Lab: [address] [address] Performing Lab: [address] [address] TACROLIMUS (STL-PB) 5.5 ng/mL Mar 11, 2025 08:33 AM [facility] RENAL PANEL PLASMA Specimen Type: PLASM A Comment: No hemolysis noted. Ordering Provider: FRANCISCO WINTERS Report Released Date/Time: Sep 27, 2024 12:13 PM Reporting Lab: [address] [address] Performing Lab: [address] [address] CREATININE 1.77 mg/dL H 0.7-1.3 UREA NITROGEN 34.2 mg/dL H 9.0-25.0 GLUCOSE 148 mg/dL H 72-99 SODIUM 134 meq/L L 136-145 POTASSIUM 4.5 meq/L 3.5-5 CHLORIDE 105 meq/L 98-107 CARBON DIOXIDE 23 meq/L 22-31 CALCIUM 9.3 mg/dL 8.4-10.4 PHOSPHOROUS 2.9 mg/dL 2.3-4.7 ALBUMIN 3.6 g/dL 3.4-5 EGFR (CKD-EPI 2020) 40.6 >60 Mar 11, 2025 08:33 AM [facility] CBC BLOOD Specimen Type: BLOOD No comment entered. Ordering Provider: FRANCISCO WINTERS Report Released Date/Time: Sep 27, 2024 12:13 PM Reporting Lab: [address] [address] Performing Lab: [address] [address] WBC 6.5 10*3/uL 3.6-11.2 RBC 4.23 10*6/uL [...] 0.00-0. 20 Feb 11, 2025 08:40 AM [facility] TACROLIMUS (STL-PB) BLOOD Specimen Type: BLOO D No comment entered. Ordering Provider: FRANCISCO WINTERS Report Released Date/Time: Sep 27, 2024 12:13 PM Reporting Lab: [address] [address] Performing Lab: [address] [address] TACROLIMUS (STL-PB) 4.8 ng/mL Feb 11, 2025 08:40 AM [facility] URINALYSIS (L-PB) URINE Specimen Type: URIN E No comment entered. Ordering Provider: FRANCISCO WINTERS Report Released Date/Time: Sep 27, 2024 12:13 PM Reporting Lab: [address] [address] Performing Lab: [address] [address] URINE COLOR Light-Yellow Yellow U.BILIRUBIN Negative mg/dL Negative U.PH 5.5 5.0-8.0 APPEARANCE Clear Clear U.NITRITE Negative mg/dL Negative URN.GLUCOSE 100 mg/dL H Negative URN.PROTEIN 10 mg/dL H URN.UROBILINOGEN Normal mg/dL Normal URN.BLOOD Negative mg/dL Negative-Trace URN.KETONES Negative mg/dL Negative-Trac e URN.LEUK.EST. Negative mg/dL Negative-Tr malu URN.SPECIFIC GRAVITY 1.020 Feb 11, 2025 08:40 AM [facility] RENAL PANEL PLASMA Specimen Type: PLASM A Comment: No hemolysis noted. Ordering Provider: FRANCISCO WINTERS Report Released Date/Time: Sep 27, 2024 12:13 PM Reporting Lab: [address] [address] Performing Lab: [address] [address] CREATININE 1.64 mg/dL H 0.7-1.3 UREA NITROGEN 40.9 mg/dL H 9.0-25.0 GLUCOSE 161 mg/dL H 72-99 SODIUM 136 meq/L 136-145 POTASSIUM 5.1 meq/L H 3.5-5 CHLORIDE 111 meq/L H 98-107 CARBON DIOXIDE 17 meq/L L 22-31 CALCIUM 9.0 mg/dL 8.4-10.4 PHOSPHOROUS 4.2 mg/dL 2.3-4.7 ALBUMIN 3.5 g/dL 3.4-5 EGFR (CKD-EPI 2020) 44.7 >60 Feb 11, 2025 08:40 AM [facility] CBC BLOOD Specimen Type: BLOOD No comment entered. Ordering Provider: FRANCISCO WINTERS Report Released Date/Time: Sep 27, 2024 12:13 PM Reporting Lab: [address] [address] Performing Lab: [address] [address] WBC 7.5 10*3/uL 3.6-11.2 RBC 4.25 10*6/uL [...] 12, 2024 02:09 PM [place]-TOBACCO NEVER USED [facility] Tobacco Use History This section includes a history of the smoking, or tobacco-related health factors, that were collected on or before the date of the Encounter. The data comes from the [place] facility where the Encounter took place. Date/Time Smoking Status/Tobacco Use Comment F acgianfranco Nov 07, 2022 01:35 PM [place]-TOBACCO NEVER USED . [facility] Mar 17, 2021 07:44 PM ORYX ADMIT TOBACCO SCREEN NO . [facility] Dec 18, 2020 11:14 PM VA-TOBACCO NEVER USED [facility] Dec 18, 2020 08:23 PM ORYX ADMIT TOBACCO SCREEN NO . [facility] Nov 14, 2006 01:52 PM LIFETIME [...] Encounter. Date/Time Encounter Note(s) Provider Source Feb 18, 2025 12:51 AM NEPHROLOGY TELEPHO NE ENCOUNTER NOTE: LOCAL TITLE: RENAL TELEPHONE NOTE ST STANDARD TITLE: NEPHROLOGY TELEPHONE ENCOUNTER NOTE DATE OF NOTE: FEB 18, 2025@00:51 ENTRY DATE: FEB 18, 2025@00:51:48 AUTHOR: FRANCISCO WINTERS EXP COSIGNER: URGENCY: STATUS: COMPLETED Reviewed labs and noted borderline high K at 5.1 and low bicarb at 17. Called pt to discuss labs. We discussed stable cr, hgb and tacro level. He noted he has not been taking sodium bicarb daily but will start doing so. We also discussed drinking more water for better hydration given high cl and K. Voiced understanding. Noted he is looking forward to our appt at next month. Time spent: 10 min /charly/ Francisco Winters MD STAFF PHYSICIAN - NEPHROLOGY Signed: 02/18/2025 14:22 FRANCISCO WINTERS [facility]
--- OUTSIDE RECORDS SUMMARY | 2025-03-06 05:00 | XMS_ITS | Encounter Summary ---
Author Name [facility] [place] [facility] [facility] [place] Address [address] [place] [address] Care Team Providers Care Header Set Up Operator Name Role Phone HELEN MATTHEWS Primary [...] Policy Bullard's Name Patient's Relationship to Policy [place] MEDICARE (WNR) MEDICARE (M) PART A Feb 09, 2019 PART A [id number] ANA GANNON EPH PATIENT MEDICARE (WNR) MEDICARE (M) PART B Feb 09, 2019 PART B [id number] ANA GANNON EPH PATIENT MEDICARE (WNR) MEDICARE (M) PART A Feb 09, 2019 PART A [id number] ANA GANNON EPH PATIENT MEDICARE (WNR) MEDICARE (M) PART B Feb 09, 2019 PART B [id number] ANA GANNON PATIENT MEDICARE (WNR) MEDICARE (M) PART B Feb 09, 2019 PART B [id number] ANA GANNON EPH PATIENT MEDICARE (WNR) MEDICARE (M) PART A Feb 09, 2019 PART A [id number] ANA GANNON PATIENT MEDICARE PART D (WNR) MEDICARE (M) PART D Sep 11, 2019 PART D [id number] [phone] ANA GANNNO PATIENT Selected Encounter This section includes the information on record at [place] for the Encounter. 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 This section includes future appointments and future orders which are active, pending or scheduled. Future Appointments This section includes appointments that were scheduled to occur 6 months from the date of the Encounter, up to a maximum of 20 appointments. The data comes from all [place] treatment facilities. Appointment Date/Time Appointment Type Appointme nt Facility Name Mar 18, 2025 11:00 AM AMBULATORY - MEDICINE [facility] Mar 25, 2025 01:00 PM AMBULATORY - MEDICINE [facility] Mar 27, 2025 12:15 PM AMBULATORY - MEDICINE [facility] Mar 27, 2025 12:30 PM AMBULATORY - MEDICINE [facility] Apr 07, 2025 08:30 AM AMBULATORY - MEDICINE [facility] Apr 10, 2025 10:00 AM AM[facility]ULATORY - MEDICINE [facility] Apr 22, 2025 11:00 AM AMBULATORY MEDICINE [facility] May 19, 2025 12:15 PM AMBULATORY - MEDICINE [facility] May 28, 2025 10:00 AM AMBULATORY - REHAB MEDICIN E [facility] May 30, 2025 10:00 AM AMBULATORY - MEDICINE [facility] Jun 12, 2025 09:30 AM AMBULATORY - MEDICINE [facility] Aug 20, 2025 09:15 AM AMBULATORY - MEDICINE [facility] Active, Pending, and Scheduled Orders This section includes a listing of several types of active, pending, and scheduled orders, including clinic medications orders, diagnostic test orders, procedure orders and consult orders; where the start date of the order is 45 days before the date of the Encounter or 45 days after the date of theEncounter. The data comes from all [facility] facilities. Test Date/Time Test Type Test Details Facility Name Mar 27, 2025 02:19 PM Consult Order [facility] OUTPATIENT [facility] Cons Er Physician's Choice [facility] Lab Results: +/- [...] Type Comment Mar 18, 2025 12:46 PM [facility] TSH W/ REFLEX FT4 (STL) PLASMA Specimen Type: PLASMA No comment entered. Ordering Provider: HELEN MATTHEWS Report Released Date/Time: Mar 18, 2025 11:52 AM Reporting Lab: [facility] [address] [facility] [facility] [address] Performing Lab: [facility] [address] [address] TSH 1.692 u[IU]/mL 0.47-5 Mar 18, 2025 12:46 PM [facility] IRON/TIBC PROFILE SERUM Specimen Type: SERUM No comment entered. Ordering Provider: HELEN MATTHEWS Report Released Date/Time: Mar 18, 2025 11:52 AM Reporting Lab: [address] [address] Performing Lab: [address] [address] TIBC 304 ug/dL 250-450 TRANSFERRIN 243 mg/dL 163-344 IRON SATURATION 23 20-50 IRON 69 ug/dL 65-175 Mar 18, 2025 12:46 PM [facility] URINALYSIS (STL-PB) URINE Specimen Type: URIN E No comment entered. Ordering Provider: FRANCISCO DAILY Report Released Date/Time: Sep 27, 2024 12:13 PM Reporting Lab: [address] [address] Performing Lab: [address] [address] URINE COLOR Light-Yellow Yellow U.BILIRUBIN Negative mg/dL Negative U.PH 6.0 5.0-8.0 APPEARANCE Clear Clear U.NITRITE Negative mg/dL Negative URN.GLUCOSE Normal mg/dL Negative URN.PROTEIN Negative mg/dL URN.UROBILINOGEN Normal mg/dL Normal URN.BLOOD Negative mg/dL Negative-Trace URN.KETONES Negative mg/dL Negative-Trac e URN.LEUK.EST. Negative mg/dL Negative-Tr malu URN.SPECIFIC GRAVITY 1.019 Mar 11, 2025 08:33 AM [facility] HGA1C BLOOD Specimen Type: BLOOD No comment entered. Ordering Provider: FRANCISCO DAILY Report Released Date/Time: Sep 27, 2024 12:13 PM Reporting Lab: [address] [address] Performing Lab: [address] [address] HGA1C 8.1 H 4.0-6.0 Mar 11, 2025 08:33 AM [facility] TACROLIMUS (STL-PB) BLOOD Specimen Type: BLOO D No comment entered. Ordering Provider: FRANCISCO DAILY Report Released Date/Time: Sep 27, 2024 12:13 PM Reporting Lab: [facility] [address] [place] [phone] Performing Lab: [address] [address] TACROLIMUS (STL-PB) 5.5 ng/mL Mar 11, 2025 08:33 AM [facility] RENAL PANEL PLASMA Specimen Type: PLASM A Comment: No hemolysis noted. Ordering Provider: FRANCISCO DAILY Report Released Date/Time: Sep 27, 2024 12:13 PM Reporting Lab: [address] [address] Performing Lab: [address] [address] CREATININE 1.77 mg/dL H 0.7-1.3 UREA NITROGEN 34.2 mg/dL H 9.0-25.0 GLUCOSE 148 mg/dL H 72-99 SODIUM 134 meq/L L 136-145 POTASSIUM 4.5 meq/L 3.5-5 CHLORIDE 105 meq/L 98-107 CARBON DIOXIDE 23 meq/L 22-31 CALCIUM 9.3 mg/dL 8.4-10.4 PHOSPHOROUS 2.9 mg/dL 2.3-4.7 ALBUMIN 3.6 g/dL 3.4-5 EGFR (CKD-EPI 2020) 40.6 >60 Mar 11, 2025 08:33 AM [facility] CBC BLOOD Specimen Type: BLOOD No comment entered. Ordering Provider: FRANCISCO DAILY Report Released Date/Time: Sep 27, 2024 12:13 PM Reporting Lab: [address] [address] Performing Lab: [address] [address] WBC 6.5 10*3/uL 3.6-11.2 RBC 4.23 10*6/uL [...] 0.00-0. 20 Feb 11, 2025 08:40 AM [facility] TACROLIMUS (STL-PB) BLOOD Specimen Type: BLOO D No comment entered. Ordering Provider: FRANCISCO DAILY Report Released Date/Time: Sep 27, 2024 12:13 PM Reporting Lab: [address] [address] Performing Lab: [address] [address] TACROLIMUS (L-PB) 4.8 ng/mL Feb 11, 2025 08:40 AM [facility] URINALYSIS (L-PB) URINE Specimen Type: URIN E No comment entered. Ordering Provider: FRANCISCO DAILY Report Released Date/Time: Sep 27, 2024 12:13 PM Reporting Lab: [address] [address] Performing Lab: [address] [address] URINE COLOR Light-Yellow Yellow U.BILIRUBIN Negative mg/dL Negative U.PH 5.5 5.0-8.0 APPEARANCE Clear Clear U.NITRITE Negative mg/dL Negative URN.GLUCOSE 100 mg/dL H Negative URN.PROTEIN 10 mg/dL H URN.UROBILINOGEN Normal mg/dL Normal URN.BLOOD Negative mg/dL Negative-Trace URN.KETONES Negative mg/dL Negative-Trac e URN.LEUK.EST. Negative mg/dL Negative-Tr malu URN.SPECIFIC GRAVITY 1.020 Feb 11, 2025 08:40 AM [facility] RENAL PANEL PLASMA Specimen Type: PLASM A Comment: No hemolysis noted. Ordering Provider: FRANCISCO DAILY Report Released Date/Time: Sep 27, 2024 12:13 PM Reporting Lab: [address] [address] Performing Lab: [address] [address] CREATININE 1.64 mg/dL H 0.7-1.3 UREA NITROGEN 40.9 mg/dL H 9.0-25.0 GLUCOSE 161 mg/dL H 72-99 SODIUM 136 meq/L 136-145 POTASSIUM 5.1 meq/L H 3.5-5 CHLORIDE 111 meq/L H 98-107 CARBON DIOXIDE 17 meq/L L 22-31 CALCIUM 9.0 mg/dL 8.4-10.4 PHOSPHOROUS 4.2 mg/dL 2.3-4.7 ALBUMIN 3.5 g/dL 3.4-5 EGFR (CKD-EPI 2020) 44.7 >60 Feb 11, 2025 08:40 AM [facility] CBC BLOOD Specimen Type: BLOOD No comment entered. Ordering Provider: FRANCISCO DAILY Report Released Date/Time: Sep 27, 2024 12:13 PM Reporting Lab: [address] [address] Performing Lab: [address] [address] WBC 7.5 10*3/uL 3.6-11.2 RBC 4.25 10*6/uL [...] and tobacco- related health factors from the [place] facility where the Encounter took place. Current Smoking Status This section includes the most current smoking, or tobacco-related health factor, from the [place] facility where the Encounter took place. Date/Time Current Smoking Status Comment Jg ity Nov 22, 2021 10:00 AM VA-TOBACCO NEVER USED [facility] Tobacco Use History This section includes a history of the smoking, or tobacco-related health factors, that were collected on or before the date of the Encounter. The data comes from the [place] facility where the Encounter took place. Date/Time Smoking Status/Tobacco Use Comment Thuy acility Sep 26, 2018 08:30 AM VA-TOBACCO NEVER [facility] Jun 25, 2018 10:53 AM VA-TOBACCO NEVER [facility]ED [facility] Dec 22, 2017 10:58 AM VA-TOBACCO NEVER [facility]ED [facility] Jun 28, 2017 11:04 AM LIFETIME NON-USER OF TOBACCO [facility] Jun 21, 2017 09:54 AM LIFETIME NON-USER OF TOBAC [place] non user [facility] May 10, 2017 09:43 AM LIFETIME NON-USER OF TOBAC CO never [facility] Feb 17, 2017 08:27 AM LIFETIME NON-USER OF TOBACCO [facility] January 14, 2016 02:12 PM LIFETIME NON-USER OF TOBACCO [facility] Encounter Notes: All associated encounter notes This section contains the clinical notes associated to the Encounter. Date/Time Encounter Note(s) Provider Source Mar 06, 2025 09:57 AM PSYCHOLOGY OUTPATI ENT NOTE: LOCAL TITLE: PRIMARY CARE PSYCHOLOGY NOTE [facility] STANDARD TITLE: PSYCHOLOGY OUTPATIENT NOTE DATE OF NOTE: MAR 06, 2025@09:57 ENTRY DATE: MAR 06, 2025@09:57:39 AUTHOR: ANGELI BECERRIL COSIGNER: URGENCY: STATUS: COMPLETED NAME: DAT GANNON DATE OF : Feb TIME SPENT WITH PATIENT: 30 minutes DIAGNOSIS BEING TREATED: Depressive D/O d/t Another Medical Condition, Relationship Distress with Spouse CPT Code: 13338 NATURE OF ENCOUNTER: follow up visit SESSION FORMAT: [X] [id number] [ ] Video Telehealth [ ]Phone Confirmed 's location and phone number for virtual appointment. [ ]Yes [X]N/A SESSION NUMBER: [id number] ( seen for additional sessions than traditional course of tx within [facility] d/t ongoing changes in medical circumstances) RELEVANT HISTORICAL DEVELOPMENTS SINCE LAST CONTACT: - completed echocardiogram, has not received results, but notes is scheduled for cardiology appt on Apr 04 INTERVENTION/TREATMENT PROVIDED [X] [place] [X] Shared [...] significant change in external stressors (i.e., medical conditions, financial concerns s/t moving into new home, marital discord). Continued assisting with processing thoughts and feelings r/t stressors, particularly medical issues and limitations on physical activities imposed by such. Continued providing with empathetic and supportive listening and appropriate validation. Continued assisting with challenging identified distorted cognitions. Reviewed mood and stress/anxiety management strategies. Reviewed importance of self-care and discussed strategies to assist with engagement. - Discussed recent sleep experience in detail. Continues to experience vivid dreams, noting these remain positive and enjoyable in nature. Reports some improvement with obtaining and maintaining sleep. Reviewed sleep hygiene guidelines. - Continued discussing discord within marital relationship. Continued discussing move to new home and 's coping with such. Laramie continues to endorse regret r/t decision to move and difficulty adjusting to several nuances within new home environment. Continued providing with empathetic and supportive listening [...] struggle with adjustment to new home and management of physical sxs and limitations r/t medical conditions ROS: Sleep: Ongoing Initial and Middle Insomnia, but previous improvements maintained Interest: remains decreased Guilt: Continues to endorse occasional experience Energy: continues to endorse frequent anergia (continues to attribute to pulmonary and cardiac issues) Concentration: remains decreased Appetite: Remains WNL Psychomotor: WNL upon observation, continues to report feeling sluggish d/t degree of experienced anergia Collaboratively discussed outcomes related to assessment and treatment progress and measures will continue to be monitored. MEASURABLE TREATMENT GOALS FOR THIS EPISODE OF CARE: Goals were developed with Laramie using shared decision making 1. GOAL/OBJECTIVES: improve mood state PROGRESS TOWARDS GOAL: sxs remain elevated, but appear stable 2. GOAL/OBJECTIVES: increase physical fx'ing PROGRESS TOWARDS GOAL: continues to experience significant anergia, ongoing stress r/t perceived lack of clear tx plan for medical concerns, notes concerns of additional muscle atrophy while pending appt with cardiology to learn what exercises is cleared for RESPONSE TO INTERVENTIONS: Veterans participation/engagement: [X]The Laramie participated actively in the current interventions. [ ]Other: The continues to consent to the current plan of care: Yes Comments: RISK ASSESSMENT: [X] NO CHANGES IN RISK FACTORS Related to Suicide or Homicide endorsed during today's encounter. Laramie did not report any current suicidal/homicidal ideation, plan, or intent. Laramie did not appear to be at imminent risk for suicide or homicide at this time and is considered sustainable at the current level of care. -CLINICAL JUDGMENT AND DISPOSITION: [X] In consideration of relevant risk and protective factors, the Laramie did NOT appear to be at imminent risk for suicide or homicide at this time and IS sustainable at the current level of care. -Comments: Laramie was asked directly and denied SI/HI, to [...] care. expressed agreement with therapy tasks and [id number] plan. RTC placed for f/u appt. /charly/ ANGELI BECERRIL, PH.D. Clinical Psychologist; [facility] Signed: 03/06/2025 10:47 ANGELI BECERRIL [facility]
--- OUTSIDE RECORDS SUMMARY | 2025-03-18 06:00 | XMS_ITS ---
Author Name [facility] [place] Organization [facility] [place] Address [address] [place] [address] Care Team Providers Care Esthetician Permanent Makeup Artist Name Role Phone HELEN MATTHEWS Primary [...] PART A Feb 09, 2019 PART A [id number] ANA GANNON EPH PATIENT MEDICARE (WNR) MEDICARE (M) PART B Feb 09, 2019 PART B [id number] ANA GANNON EPH PATIENT MEDICARE (WNR) MEDICARE (M) PART A Feb 09, 2019 PART A [id number] ANA GANNON EPH PATIENT MEDICARE (WNR) MEDICARE (M) PART B Feb 09, 2019 PART B [id number] ANA GANNON PATIENT MEDICARE (WNR) MEDICARE (M) PART A Feb 09, 2019 PART A [id number] [phone] ANA GANNON PATIENT MEDICARE (WNR) MEDICARE (M) PART B Feb 09, 2019 PART B [id number] ANA GANNON PATIENT MEDICARE PART D (WNR) MEDICARE (M) PART D Sep 11, 2019 PART D [id number] NAA GANNON PATIENT Selected Encounter This section includes the information on record at [place] for the Encounter. Date/Time Encounter Type Encounter Description Reason Provider Source Mar 18, 2025 11:00 AM OFFICE O/P EST MOD 30 MIN PRIMARY CARE/MEDICINE ICD-10-CM 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 HELEN MATTHEWS Suzette Encounter Template Text not used by [place] Assessments - Encounter Diagnoses This section includes the primary and secondary diagnoses documented for the Encounter. Date/Time Primary/Secondary Diagnosis Diagnosis Name Provider Source Mar 18, 2025 12:07 PM PRIMARY Type 1 diabetes mellitus with diabetic nephropathy HELEN MATTHEWS [facility] Mar 18, 2025 12:07 PM SECONDARY Chronic fatigue, unspecified HELEN MATTHEWS [facility] Mar 18, 2025 12:07 PM SECONDARY Dyspnea, unspecified HELEN MATTHEWS [facility] Mar 18, 2025 12:07 PM SECONDARY Personal history of diabetic foot ulcer HELEN MATTHEWS [facility] Plan of Treatment: Future Appointments (+ 6 months) and Future Tests (+/- 45 days) The Plan of Treatment section includes future care activities for the patient from all [place] treatmentfacilities. This section includes future appointments and future orders which are active, pending or scheduled. Future Appointments This section includes appointments that were scheduled to occur 6 months from the date of the Encounter, up to a maximum of 20 appointments. The data comes from all [place] treatment facilities. Appointment Date/Time Appointment Type Appointme nt Facility Name Mar 25, 2025 01:00 PM AMBULATORY - MEDICINE [facility] Mar 27, 2025 12:15 PM AMBULATORY - MEDICINE [facility] Mar 27, 2025 12:30 PM AMBULATORY - MEDICINE [facility] Apr 07, 2025 08:30 AM AMBULATORY - MEDICINE [facility] Apr 10, 2025 10:00 AM [facility] - MEDICINE [facility] Apr 22, 2025 11:00 AM AMBULATORY - MEDICINE [facility] May 19, 2025 12:15 PM AMBULATORY - MEDICINE [facility] May 28, 2025 10:00 AM AMBULATORY - REHAB MEDICIN E [facility] May 30, 2025 10:00 AM AMBULATORY - MEDICINE [facility] Jun 12, 2025 09:30 AM AMBULATORY - MEDICINE [facility] Aug 20, 2025 09:15 AM AMBULATORY - MEDICINE [facility] Sep 18, 2025 11:00 AM AMBULATORY - MEDICINE [facility] Active, Pending, and Scheduled Orders This section includes a listing of several types of active, pending, and scheduled orders, including clinic medications orders, diagnostic test orders, procedure orders and consult orders; where the start date of the order is 45 days before the date of the Encounter or 45 days after the date of theEncounter. The data comes from all [place] treatment facilities. Test Date/Time Test Type Test Details Facility Name Mar 27, 2025 02:19 PM Consult Order [facility] [employer] [facility] Lab Results: +/- 30 days of the encounter This section includes the Chemistry and Hematology Lab Results on record with [place] for the patient. Radiology Reports and Pathology Reports are provided separately, in subsequent sections. Lab Results This section contains the Chemistry/Hematology Results that were resulted 30 days before or 30 daysafter the date of the Encounter. Date/Time Source Result Type Result - Unit Interpretation Reference Range Specimen Type Comment Apr 08, 2025 08:17 AM [facility] TACROLIMUS (STL-PB) BLOOD Specimen Type: BLOOD No comment entered. Ordering Provider: FRANCISCO DAILY Report Released Date/Time: Sep 27, 2024 12:13 PM Reporting Lab: [address] [address] Performing Lab: [facility] [address] [facility] [address] TACROLIMUS (STL-PB) 3.7 ng/mL Apr 08, 2025 08:17 AM [facility] RENAL PANEL PLASMA Specimen Type: PLASM A Comment: No hemolysis noted. Ordering Provider: FRANCISCO DAILY Report Released Date/Time: Sep 27, 2024 12:13 PM Reporting Lab: [place] [id number] [facility] [address] Performing Lab: [place] [address] [address] [facility] [address] CREATININE 1.63 mg/dL H 0.7-1.3 UREA NITROGEN 31.9 mg/dL H 9.0-25.0 GLUCOSE 143 mg/dL H 72-99 SODIUM 136 meq/L 136-145 POTASSIUM 4.5 meq/L 3.5-5 CHLORIDE 110 meq/L H 98-107 CARBON DIOXIDE 20 meq/L L 22-31 CALCIUM 9.0 mg/dL 8.4-10.4 PHOSPHOROUS 4.2 mg/dL 2.3-4.7 ALBUMIN 3.6 g/dL 3.4-5 EGFR (CKD-EPI 2020) 44.8 >60 Apr 08, 2025 08:17 AM [facility] URINALYSIS (STL-PB) URINE Specimen Type: URIN E No comment entered. Ordering Provider: FRANCISCO DAILY Report Released Date/Time: Sep 27, 2024 12:13 PM Reporting Lab: [place] [id number] [facility] [address] Performing Lab: [place] [address] [address] [facility] [address] URINE COLOR Light-Yellow Yellow U.BILIRUBIN Negative mg/dL Negative U.PH 6.0 5.0-8.0 APPEARANCE Clear Clear U.NITRITE Negative mg/dL Negative URN.GLUCOSE 1000 mg/dL H Negative URN.PROTEIN Negative mg/dL URN.UROBILINOGEN Normal mg/dL Normal URN.BLOOD Negative mg/dL Negative-Trace URN.KETONES Negative mg/dL Negative-Trac e URN.LEUK.EST. Negative mg/dL Negative-Tr malu URN.SPECIFIC GRAVITY 1.015 Apr 08, 2025 08:17 AM [facility] CBC BLOOD Specimen Type: BLOOD No comment entered. Ordering Provider: FRANCISCO DAILY Report Released Date/Time: Sep 27, 2024 12:13 PM Reporting Lab: [facility] [address] [place] [id number] Performing Lab: [address] [address] WBC 5.3 10*3/uL 3.6-11.2 RBC 4.30 10*6/uL 4.10-5.70 HGB 12.9 g/dL L 13.1-16.8 HCT 38.0 L 38.2-48.4 MCV 88.4 fL 80.0-100.0 MCH 30.0 pg 27.0-34.0 MCHC 33.9 g/dL 33.0-36.0 PLT 173 10*3/uL 150-400 MPV 10.3 fL 7.5-11.2 RDW 12.8 11.8-15.1 LYMPHOCYTES, AUTO % 29 MONOCYTES, AUTO % 11 NEUTROPHILS, AUTO % 52 EOSINOPHILS, AUTO % 6 BASOPHILS, AUTO % 2 LYMPHOCYTES, ABSOLUTE 1.53 10*3/uL 0.77- 4.50 MONOCYTES, ABSOLUTE 0.57 10*3/uL 0.19-0. 80 NEUTROPHILS, ABSOLUTE 2.74 10*3/uL 2.10- 8.00 EOSINOPHILS, ABSOLUTE 0.30 10*3/uL 0.00- 0.60 BASOPHILS, ABSOLUTE 0.10 10*3/uL 0.00-0. 20 Mar 18, 2025 12:46 PM [facility] TSH W/ REFLEX FT4 (STL) PLASMA Specimen Type: PLASMA No comment entered. Ordering Provider: HELEN MATTHEWS Report Released Date/Time: Mar 18, 2025 11:52 AM Reporting Lab: [facility] [address] [facility] [address] Performing Lab: [address] [address] TSH 1.692 u[IU]/mL 0.47-5 Mar 18, 2025 12:46 PM [facility] IRON/TIBC PROFILE SERUM Specimen Type: SERUM No comment entered. Ordering Provider: HELEN MATTHEWS Report Released Date/Time: Mar 18, 2025 11:52 AM Reporting Lab: [address] [address] Performing Lab: [address] [address] TIBC 304 ug/dL 250-450 TRANSFERRIN 243 mg/dL 163-344 IRON SATURATION 23 20-50 IRON 69 ug/dL 65-175 Mar 18, 2025 12:46 PM [facility] URINALYSIS (STL-PB) URINE Specimen Type: URIN E No comment entered. Ordering Provider: FRANCISCO DAILY Report Released Date/Time: Sep 27, 2024 12:13 PM Reporting Lab: [address] [address] Performing Lab: [address] [address] URINE COLOR Light-Yellow Yellow U.BILIRUBIN Negative mg/dL Negative U.PH 6.0 5.0-8.0 APPEARANCE Clear Clear U.NITRITE Negative mg/dL Negative URN.GLUCOSE Normal mg/dL Negative URN.PROTEIN Negative mg/dL URN.UROBILINOGEN Normal mg/dL Normal URN.BLOOD Negative mg/dL Negative-Trace URN.KETONES Negative mg/dL Negative-Trac e URN.LEUK.EST. Negative mg/dL Negative-Tr malu URN.SPECIFIC GRAVITY 1.019 Mar 11, 2025 08:33 AM [facility] HGA1C BLOOD Specimen Type: BLOOD No comment entered. Ordering Provider: FRANCISCO DAILY Report Released Date/Time: Sep 27, 2024 12:13 PM Reporting Lab: [address] [address] Performing Lab: [address] [address] HGA1C 8.1 H 4.0-6.0 Mar 11, 2025 08:33 AM [facility] TACROLIMUS (STL-PB) BLOOD Specimen Type: BLOO D No comment entered. Ordering Provider: FRANCISCO DAILY Report Released Date/Time: Sep 27, 2024 12:13 PM Reporting Lab: [facility] [address] [place] [phone] Performing Lab: [address] [address] TACROLIMUS (STL-PB) 5.5 ng/mL Mar 11, 2025 08:33 AM [facility] RENAL PANEL PLASMA Specimen Type: PLASM A Comment: No hemolysis noted. Ordering Provider: FRANCISCO DAILY Report Released Date/Time: Sep 27, 2024 12:13 PM Reporting Lab: [address] [address] Performing Lab: [address] [address] CREATININE 1.77 mg/dL H 0.7-1.3 UREA NITROGEN 34.2 mg/dL H 9.0-25.0 GLUCOSE 148 mg/dL H 72-99 SODIUM 134 meq/L L 136-145 POTASSIUM 4.5 meq/L 3.5-5 CHLORIDE 105 meq/L 98-107 CARBON DIOXIDE 23 meq/L 22-31 CALCIUM 9.3 mg/dL 8.4-10.4 PHOSPHOROUS 2.9 mg/dL 2.3-4.7 ALBUMIN 3.6 g/dL 3.4-5 EGFR (CKD-EPI 2020) 40.6 >60 Mar 11, 2025 08:33 AM [facility] CBC BLOOD Specimen Type: BLOO D No comment entered. Ordering Provider: FRANCISCO DAILY Report Released Date/Time: Sep 27, 2024 12:13 PM Reporting Lab: [address] [address] Performing Lab: [address] [address] WBC 6.5 10*3/uL 3.6-11.2 RBC 4.23 10*6/uL [...] 0.60 BASOPHILS, ABSOLUTE 0.10 10*3/uL 0.00-0. 20 Vital Signs: All taken on the encounter date This section contains inpatient and outpatient Vital Signs collected on the date of the Encounter. Date/Time Temperature Pulse Blood Pressure Respiratory Rate SP02 Pain Height Weight Body Mass Index Source Mar 18, 2025 11:13 AM 97.3 F 77 /min 114/72 mm[Hg] 20 /min 96 % 0 215 lb 30 [facility] Social History: Smoking Status (Most current) and Tobacco Use (All prior to encounter date) This section includes the most current, and the historical, smoking and tobacco- related health factors from the [place] facility where the Encounter took place. Current Smoking Status This section includes the most current smoking, or tobacco-related health factor, from the [place] facility where the Encounter took place. Date/Time Current Smoking Status Comment Facil ity Nov 22, 2021 10:00 AM [place]-TOBACCO NEVER USED [facility] Tobacco Use History This section includes a history of the smoking, or tobacco-related health factors, that were collected on or before the date of the Encounter. The data comes from the [place] facility where the Encounter took place. Date/Time Smoking Status/Tobacco Use Comment F acility Sep 26, 2018 08:30 AM [place]-TOBACCO NEVER USED [facility] Jun 25, 2018 10:53 AM [place]-TOBACCO NEVER USED [facility] Dec 22, 2017 10:58 AM [place]-TOBACCO NEVER USED [facility] Jun 28, 2017 11:04 AM [...] 02:12 PM LIFETIME NON-USER OF TOBACCO . [facility] Encounter Notes: All associated encounter notes This section contains the clinical notes associated to the Encounter. Date/Time Encounter Note(s) Provider Source Mar 18, 2025 12:08 PM PHARMACY OUTPATIEN T NOTE: LOCAL TITLE: OUTSIDE PRESCRIPTIONS STL STANDARD TITLE: PHARMACY OUTPATIENT NOTE DATE OF NOTE: MAR 18, 2025@12:08 ENTRY DATE: MAR 18, 2025@12:08:13 AUTHOR: HELEN MATTHEWS EXP COSIGNER: URGENCY: STATUS: COMPLETED [facility] [place] [address] ext [phone] KATIA #: [id number] Date: MAR 18, 2025 Patient: DAT GANNON Address: [address] [place] [address] ID: [id number] [place] Date of : Feb BIN: [id number] Person Code: 01 PCN: [id number] RX Group: [id number] For questions, please call the [facility] Help [facility]k at . *Hours of Operation: 24 Hours a Day / 7 Days a Week / 365 Days a Year Medication: keflex 500mg Qty: 20 Si po bid x 10 days Refills: 0 Medication: bactroban ointment Qty: 30gram Sig: apply daily Refills: 0 ___ Substitution Permitted Dispense As Written /charly/ HELEN MATTHEWS Signed: 03/18/2025 12:09 HELEN MATTHEWS [facility] Mar 18, 2025 11:36 AM PRIMARY CARE NOTE: LOCAL TITLE: PRIMARY CARE PROVIDER ESTABLISHED VISIT STL STANDARD TITLE: PRIMARY CARE NOTE DATE OF NOTE: MAR 18, 2025@11:36 ENTRY DATE: MAR 18, 2025@11:36:58 AUTHOR: HELEN MATTHEWS EXP COSIGNER: URGENCY: STATUS: COMPLETED Patient is 70 and WHITE Self Identified Gender - NONE FOUND Reason for visit:Scheduled follow-up Chief Complaint: f/u History of Present Illness: Patient history significant for HTN, HLD, DMII, Chronotropic incompetence, MEDARDO,Osteopenia, PFO (with shunting on valsavv, lymphedema, COPD, s/p kidney transplant, DVT, Bradycardia s/p dual chamber PPM presentfor follow up Patient notes fatigue and states he can hardly stand up . Feels he has worsening neuropathy. Jada is wearing his cpap mask daily . Geting 5 -6 hours per day . Patient saw his private waxer floor and now gives himself insulin with his meals . Problem List: 1) Diabetic nephropathy (SNOMED CT 505022649) 2) Ulcer of lower Limb, unspecified (ICD-9-CM 707.10) 3) Erectile dysfunction due to diabetes mellitus (SNOMED CT 340812887) 4) Anemia in Chronic Kidney Disease (ICD-9-CM 285.21) 5) HTN - Hypertension (SNOMED CT 56084519) 6) GERD * (ICD-9-CM 530.81) 7) Acidosis, metabolic NEC (ICD-9-CM 276.2) 8) Diabetic nephropathy (SNOMED CT 424377044) 9) Hypertensive chronic kidney disease, unspecified, with chronic kidney disease St 10) History of - kidney recipient (SNOMED CT 674664036) 11) Other Fluid Overload (ICD-9-CM 276.69) 12) Anticoagulant effect 13) Insulin pump present 14) Sinus bradycardia 15) Permanent cardiac pacemaker 16) Therapeutic drug effect 17) Acute osteomyelitis of foot 18) History of venous thrombosis 19) Postthrombotic syndrome 20) Sleep apnea 21) Lack of exercise 22) Coronary artery disease 23) Osteopenia 24) Patent foramen ovale 25) Chronotropic incompetence Immunization: ADMINISTERED Immunization Series Date Facility Reaction Info COVID-19 (MODERNA), MRNA, LNP-S,* 1 05/31/2022 [facility] <C> COVID-19 (PFIZER), MRNA, LNP-S, * 3 05/08/2021 [facility]* COVID-19 (PFIZER), MRNA, LNP-S, * 1 05/01/2021 [facility] COVID-19 (Ultius), MRNA, LNP-S, * 2 10/22/2020 [facility]* <C> COVID-19 (PFIZER), MRNA, LNP-S, * 1 10/01/2020 [facility]* <C> COVID-19 (PFIZER), MRNA, LNP-S, * 1 11/01/2021 [facility] COVID-19 (Ultius), MRNA, LNP-S, * 07/18/2024 [facility]* COVID-19 (PFIZER), MRNA, LNP-S, * 3 06/16/2023 [facility] INFLUENZA (HISTORICAL) 06/30/2004 [facility] INFLUENZA (HISTORICAL) 07/11/2001 [facility]* INFLUENZA (HISTORICAL) 07/04/1996 [facility]* INFLUENZA, [...] FORMULATI* [facility]* INFLUENZA, UNSPECIFIED FORMULATI* 06/18/2012 [facility]* INFLUENZA, UNSPECIFIED FORMULATI* 06/16/2011 [facility] INFLUENZA, UNSPECIFIED FORMULATI* 06/18/2010 [facility]* INFLUENZA, UNSPECIFIED FORMULATI* 06/29/2009 Dr mijares* INFLUENZA, UNSPECIFIED FORMULATI* 07/01/2008 [place] <C> INFLUENZA, UNSPECIFIED FORMULATI* 07/03/2007 [facility]* INFLUENZA, UNSPECIFIED FORMULATI* 08/25/2006 [facility]* INFLUENZA, UNSPECIFIED FORMULATI* 07/05/2005 [facility]* INFLUENZA, UNSPECIFIED FORMULATI* 06/30/2004 [facility]* INFLUENZA, UNSPECIFIED FORMULATI* 07/16/2002 [facility]* INFLUENZA, UNSPECIFIED FORMULATI* 07/11/2001 [facility]* PNEUMOCOCCAL CONJUGATE PCV 13 05/12/2015 [facility]* <C> PNEUMOCOCCAL POLYSACCHARIDE PPV23 01/16/2023 [facility]* PNEUMOCOCCAL POLYSACCHARIDE PPV23 12/22/2017 [facility] PNEUMOCOCCAL POLYSACCHARIDE PPV23 03/11/2012 [facility]* <C> RSV, RECOMBINANT, PROTEIN SUBUNI* 1 08/31/2023 [facility] TDAP 05/09/2019 [facility]* <C> TDAP Done here* ZOSTER RECOMBINANT [address] [facility]* ZOSTER RECOMBINANT 1 12/27/2021 [facility]* CONTRAINDICATED No data available REFUSED ======= Immunization Date Facility Info COVID-19 (MODERNA), MRNA, LNP-S,* 04/18/2024 [facility] <I> COVID-19 (PFIZER), MRNA, LNP-S, * 03/18/2025 [facility] <I> <C> See the Detailed Immunizations Health Summary Component[DIM] for Comments <I> See the Detailed Immunizations Health Summary Component[DIM] for Additional Information * Value is truncated; see the Detailed Immunizations Health Summary Component[DIM] for complete text Medication Review: The essential med list for review which includes the patient's active VA prescriptions and if applicable, remote VA prescriptions, non-VA prescriptions, and discontinued VA prescriptions within the last 90 days and known allergies including local and remote allergies have been reviewed. Allergies:MORPHINE Active and Recently Outpatient Medications (excluding Supplies): Active Outpatient Medications Status 1) AMLODIPINE [...] DOSE. Indication: FOR LOW BLOOD SUGAR 7) LISINOPRIL 40MG TAB TAKE ONE TABLET BY MOUTH ONCE A DAY FOR ACTIVE HEART OR BLOOD PRESSURE 8) METOPROLOL TARTRATE 100MG TAB TAKE ONE TABLET BY MOUTH TWICE ACTIVE A DAY FOR HEART/BLOOD PRESSURE. TAKE WITH OR IMMEDIATELY FOLLOWING FOOD. NEW DOSE 9) OMEPRAZOLE 40MG EC CAP TAKE ONE CAPSULE BY MOUTH EVERY ACTIVE MORNING BEFORE A MEAL TO LOWER STOMACH ACID. TAKE 30 MINUTES PRIOR TO FOOD. 10) PREDNISONE 5MG TAB TAKE ONE TABLET BY MOUTH EVERY MORNING ACTIVE WITH FOOD 11) SODIUM BICARBONATE 650MG TAB TAKE TWO TABLETS BY MOUTH TWICE ACTIVE A DAY 12) TACROLIMUS 1MG CAP TAKE TWO CAPSULES BY MOUTH EVERY MORNING ACTIVE AND TAKE ONE CAPSULE EVERY EVENING TO PREVENT TRANSPLANT REJECTION 13) TAMSULOSIN HCL 0.4MG CAP TAKE TWO CAPSULES BY MOUTH EVERY ACTIVE EVENING APPROXIMATELY 30 MINUTES AFTER THE SAME MEAL EACH DAY (FOR PROSTATE) Indication: FOR BENIGN PROSTATIC HYPERPLASIA Physical Exam VITALS (most recent, as listed in the electronic record): B/P: 114/72 (03/18/2025 11:13) Pulse: 77 (03/18/2025 11:13) Temperature: 97.3 F [36.3 C] (03/18/2025 11:13) Weight: 215 lb [97.52 kg] (03/18/2025 11:13) Height: 71 in [180.3 cm] (10/04/2024 08:03) BMI: 30.0 Pain: 0 (03/18/2025 11:13) (0-10 scale) General: WD, WN in NAD, pleasant affect Skin:1mmabrasion on 2nd right toe and .5mm abrasion on 3rd toe . HEENT: NC/AT, PERRL, EOMI, no scleral icterus, TMs intact, posterior pharynx is clear, no tonsillar adenopathy Neck: Supple, no cervical ANGELICA, no thyromegaly or goiters palpated. Lungs: CTA bilat, no W/R/R Heart: RRR, nl S1/S2, no murmurs, no S3/S4 gallops. Abdomen: Soft, NT/ND. No HSM or masses palpated. Musculoskeletal: 2+ deep tendon reflexes bilaterally, 5/5 motor and sensory intact of UE/LE Extremities: No edema, pedal pulses intact Data Review: HGA1C 8.1 H % 03/11/2025 08:33 Lipid Panel: TRIGLYCERIDE 68 mg/dL 09/19/2024 09:34 CHOLESTEROL 92 mg/dL 09/19/2024 09:34 HDL(New) 43 mg/dL 09/19/2024 09:34 CALCULATED LDL 35 mg/dL 09/19/2024 09:34 CMP: SODIUM 134 L mEq/L 03/11/2025 08:33 POTASSIUM 4.5 mEq/L 03/11/2025 08:33 CHLORIDE 105 mEq/L 03/11/2025 08:33 UREA NITROGEN 34.2 H mg/dL 03/11/2025 08:33 CREATININE 1.77 H mg/dL 03/11/2025 08:33 CALCIUM 9.3 mg/dL 03/11/2025 08:33 PROTEIN 6.0 g/dL 08/20/2024 08:21 ALBUMIN 3.6 g/dL 03/11/2025 08:33 ALKALINE PHOSPHATASE 79 U/L 08/20/2024 08:21 ALT/SGPT 20 U/L 08/20/2024 08:21 AST/SGOT 20 U/L 08/20/2024 08:21 TOTAL BILIRUBIN 0.5 mg/dL 08/20/2024 08:21 CARBON DIOXIDE 23 mEq/L 03/11/2025 08:33 GLUCOSE 148 H mg/dL 03/11/2025 08:33 EGFR (CKD-EPI 2020) 40.6 03/11/2025 08:33 CBC: WBC 6.5 10*3/uL 03/11/2025 08:33 RBC 4.23 10*6/uL 03/11/2025 08:33 HGB 12.8 L g/dL 03/11/2025 08:33 HCT 37.5 L % 03/11/2025 08:33 MCV 88.7 fL 03/11/2025 08:33 MCH 30.3 pg 03/11/2025 08:33 MCHC 34.1 g/dL 03/11/2025 08:33 RDW 12.5 % 03/11/2025 08:33 PLT 171 10*3/uL 03/11/2025 08:33 MPV 10.3 fL 03/11/2025 08:33 NEUTROPHILS, AUTO % 64 % 03/11/2025 08:33 LYMPHOCYTES, AUTO % 21 % 03/11/2025 08:33 MONOCYTES, AUTO % 10 % 03/11/2025 08:33 EOSINOPHILS, AUTO % 4 % 03/11/2025 08:33 BASOPHILS, AUTO % 2 % 03/11/2025 08:33 NEUTROPHILS, ABSOLUTE 4.14 10*3/uL 03/11/2025 08:33 LYMPHOCYTES, ABSOLUTE 1.36 10*3/uL 03/11/2025 08:33 MONOCYTES, ABSOLUTE 0.62 10*3/uL 03/11/2025 08:33 EOSINOPHILS, ABSOLUTE 0.29 10*3/uL 03/11/2025 08:33 BASOPHILS, ABSOLUTE 0.10 10*3/uL 03/11/2025 08:[address]T FRACTION 3.8 % 04/01/2024 11:24 PSA: PROST. SPECIFIC AG.(PB-STL) 0.418 ng/mL 09/19/2024 09:34 TSH: No TSH (1YR) EO data found UA: URINE COLOR Light-Yellow 02/11/2025 08:40 APPEARANCE Clear 02/11/2025 08:40 U.PH 5.5 02/11/2025 08:40 U.BILIRUBIN Negative mg/dL 02/11/2025 08:40 U.NITRITE Negative mg/dL 02/11/2025 08:40 URINE RBC/HPF 1 /HPF 09/19/2024 09:40 URINE WBC/HPF 1 /HPF 11/08/2024 08:52 BACTERIA RARE /HPF 06/21/2024 08:53 MUCUS RARE /LPF 11/08/2024 08:52 HYALINE CASTS 9 /LPF 11/08/2024 08:52 U.SPERM RARE /HPF 11/08/2024 08:52 Vitamin D: No VITAMIN D EO data found Micral/Creat Profile: CREATuF: 72.3 (09/28/23 08:49) Result: Acceptable Follow-up Action: Assessment/Plan: 1 1. htn- stable - continue 1lisinopril to 40 mg, metoprolol 100 mg BID, norvasc 10 mg daily and lasix 20 mg daily. 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 - hba1c of8.1- continue to f/u with endocrinology 3 cri - stable - followed by web application tester - 4 CAD - non obstructive - followed by cardiology 5 dysthymia - stabe- continue counseling and effexor 75mg po daily 6 dyspnea - multifactorial --copd 7 right toe abrasion = will give patient keflex 500mg po bid x 10 day and bactroban ointment daily 8 fatigu- encourage patient to wear cpap mask , check tsh and iron studies RTC: 6 months nurse visit in 1 week to check right toe CLINICAL REMINDERS COMPLETED PAVE Foot Check - L,N,P,PH,PO,PT,U: A complete foot check was completed at this encounter. VISUAL INSPECTION: Includes inspection for skin breaks, deformity, erythema, trauma, pallor on elevation, dependent rubor, nail deformities, extensive callus and pitting edema. Visual exam results: Abnormal Observations: 1mm abrasion on dorsum of 2nd right toe and .5mmof 3rd right toe PEDAL PULSES: Includes palpation of dorsalis and posterior tibial pulses and signs/symptoms of vascular compromise like pain, pallor, parasthesia or paralysis. Present (even if diminished) SENSORY CHECK: Includes 10 gram Monofilament ([place]in) test of sensation. Intact (Greater than or [...] complete drying and thorough inspection for changes. Patient is established patient of Podiatry and/or Vascular: Last scheduled appointment: [Place data object here] Eye Care At-Risk Screen - L,N,PH,U: Patient identified to be at risk for the following eye condition(s): DIABETIC RETINOPATHY: Diabetes Diagnosis Information: Encounter Diagnosis: 01/03/2025@14:29:53 E11.9 (ICD-10-CM) Type 2 Diabetes Mellitus without Complications rank: PRIMARY Prov. Narr. - Type 2 diabetes mellitus without complications MACULAR DEGENERATION: Macular Degeneration Risk Factors Information: Reminder Term: [facility]-AMD RISK FACTORS Encounter Diagnosis: 12/26/2024@13:00 I25.810 (ICD-10-CM) Atherosclerosis of Coronary Artery Bypass Graft(s) without Angina Pectoris rank: SECONDARY Prov. Narr. - Coronary artery disease ([facility] [id number]) GLAUCOMA: Glaucoma Risk Factors Information: Encounter Diagnosis: 07/24/2017@09:00 H40.013 (ICD-10-CM) Open Angle with Borderline Findings, low Risk, Bilateral rank: SECONDARY Prov. Narr. - Open Angle with Borderline Findings, low Risk, Bilateral Action: Referral Ordered: Tele-Eye Screening /es/ HELEN MATTHEWS Signed: 03/18/2025 12:07 HELEN [facility] Mar 18, 2025 11:15 AM NURSING NOTE: LOCAL TITLE: V15 PACT FACE TO FACE NOTE STL STANDARD TITLE: NURSING NOTE DATE OF NOTE: MAR 18, 2025@11:15 ENTRY DATE: MAR 18, 2025@11:16:03 AUTHOR: AMARIANI QUILES EXP COSIGNER: URGENCY: STATUS: COMPLETED Provider Visit: Patient Identifiers : Full Name Date of Reason for visit: Established Follow-Up Mode of Arrival: Ambulatory Allergy Review: MORPHINE MAY 10, 2017 (HISTORICAL) Symptoms: None listed Allergy list reviewed and remains current. Recent Vital Signs: Temperature: 97.3 F [36.3 C] (03/18/2025 11:13) Pulse: 77 (03/18/2025 11:13) Respiration: 20 (03/18/2025 11:13) B/P: 114/72 (03/18/2025 11:13) Pain: 0 (03/18/2025 11:13) Wt: 215 lb [97.52 kg] (03/18/2025 11:13) Ht: 71 in [180.3 cm] (10/04/2024 08:03) BMI: 30.0 POX: 96% (03/18/2025 11:13) Blood sugar glucometer readin (AT HOME) PERSONAL HEALTH INVENTORY Notes: No data available for PHI note titles PERSONAL HEALTH INVENTORY - MAP: 09/18/2024 Personal Health Plan [place], Aspiration, Purpose (MAP) 06/29/2023 Personal Health Plan [place], [place], Purpose (MAP) Getting back to doing the things I enjoy. What matters most to you in your life right now? -- 's Response: FISHING Would you like to discuss any personal problem, family problem, alcohol use, drug use, or a mental or emotional illness? No My [facility] ([facility]), please select appointment type: Face to face: Yes-Do you have an upgraded (Premium) account which gives you the added benefit of Secure Messaging with your Primary Care Provider and refilling your prescriptions online? Yes- Done Contact provided Primary Care phone number and encouraged to call if any questions or concerns. Review that after hours nurse line [phone] and emergency room are available 03/04 for patient use. Contact verbalized good understanding. COVID-19 Immunization-L,N,P,PH,U: Refused Pfizer Monovalent COVID-19 vaccine Immunization: COVID-19 (PFIZER), MRNA, LNP-S, PF, ERNESTO-SUCROSE, 30 MCG/0.3 ML (AGES 12+ YEARS) Refusal Reason: PATIENT DECISION Patient refuses all immunization(s) in the COVID-19 group Date Documented: 03/18/25 11:27 Learning Assessment: - * This patient's learning ABILITIES, BARRIERS to learning, CULTURAL and FAITH beliefs, and learning PREFERENCES were assessed. Following are findings of note: Patient reads well. LANGUAGE Patient reports that Belarusian is preferred language for healthcare. 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 Patient reports learning preference is attending one-to-one or group demonstrations. Patient reports learning preference is looking at pictures or viewing videos. /charly/ AMAIRANI QUILES LICENSED PRACTICAL NURSE Signed: 03/18/2025 11:28 AMAIRANI QUILES [facility]
--- OUTSIDE RECORDS SUMMARY | 2025-03-25 08:00 | XMS_ITS | Encounter Summary ---
Author Name [facility] [place] [facility] [place] [facility] [facility] [place] Address [address] [place] [address] Care Team Providers Care Paraprofessional Education Assistant Name Role Phone HELEN MATTHEWS Primary [...] PART A Feb 09, 2019 PART A [id number] ANA GANNON EPH PATIENT MEDICARE (WNR) MEDICARE (M) PART B Feb 09, 2019 PART B [id number] ANA GANNON EPH PATIENT MEDICARE (WNR) MEDICARE (M) PART A Feb 09, 2019 PART A [id number] ANA GANNON EPH PATIENT MEDICARE (WNR) MEDICARE (M) PART B Feb 09, 2019 PART B [id number] ANA GANNON PATIENT MEDICARE (WNR) MEDICARE (M) PART A Feb 09, 2019 PART A [id number] ANA GANNON EPH PATIENT MEDICARE (WNR) MEDICARE (M) PART B Feb 09, 2019 PART B [id number] ANA GANNON EPH PATIENT MEDICARE PART D (WNR) MEDICARE (M) PART D Sep 11, 2019 PART D [id number] [phone] ANA GANNON PATIENT Selected Encounter This section includes the information on record at [place] for the Encounter. Date/Time Encounter Type Encounter Description Reason Provider Source Mar 25, 2025 01:00 PM OFF/OP EST JANUARY X REQ PHY/QHP PRIMARY CARE/MEDICINE ICD-10-CM Z02.9 Encounter for administrative examinations, unspecified GOLDIE SANDOVAL [facility] Encounter Template Text not used by [place] Assessments - Encounter Diagnoses This section includes the primary and secondary diagnoses documented for the Encounter. Date/Time Primary/Secondary Diagnosis Diagnosis Name Provider Source Mar 25, 2025 02:23 PM PRIMARY Encounter for administrative examinations, unspecified NICHOLAS SANDOVAL [facility] Plan of Treatment: Future Appointments (+ 6 months) and Future Tests (+/- 45 days) The Plan of Treatment section includes future care activities for the patient from all [place] treatmentfacilities. This section includes future appointments and future orders which are active, pending or scheduled. Future Appointments This section includes appointments that were scheduled to occur 6 months from the date of the Encounter, up to a maximum of 20 appointments. The data comes from all [place] treatment facilities. Appointment Date/Time Appointment Type Appointme nt Facility Name Mar 27, 2025 12:15 PM AMBULATORY - MEDICINE [facility] Mar 27, 2025 12:30 PM [facility] MEDICINE [facility] Apr 07, 2025 08:30 AM AMBULATORY - MEDICINE [facility] Apr 10, 2025 10:00 AM AMBULATORY - MEDICINE [facility] Apr 22, 2025 11:00 AM AMBULATORY - MEDICINE [facility] May 19, 2025 12:15 PM AMBULATORY - MEDICINE [facility] May 28, 2025 10:00 AM AMBULATORY - REHAB MEDICIN [facility] May 30, 2025 10:00 AM [facility] Jun 12, 2025 09:30 AM AMBULATORY - MEDICINE [facility] Aug 20, 2025 09:15 AM AMBULATORY - MEDICINE [facility] Sep 18, 2025 11:00 AM AMBULATORY - MEDICINE [facility] Active, Pending, and Scheduled Orders This section includes a listing of several types of active, pending, and scheduled orders, including clinic medications orders, diagnostic test orders, procedure orders and consult orders; where the start date of the order is 45 days before the date of the Encounter or 45 days after the date of theEncounter. The data comes from all [place] treatment facilities. 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 Radiology Reports and Pathology Reports are provided separately, in subsequent sections. Lab Results This section contains the Chemistry/Hematology Results that were resulted 30 days before or 30 daysafter the date of the Encounter. Date/Time Source Result Type Result - Unit Interpretation Reference Range Specimen Type Comment Apr 08, 2025 08:17 AM [facility] TACROLIMUS (STL-PB) BLOOD Specimen Type: BLOOD No comment entered. Ordering Provider: FRANCISCO DAILY Report Released Date/Time: Sep 27, 2024 12:13 PM Reporting Lab: [facility] [address] [facility] [phone] Performing Lab: [facility] [address] [facility] [phone] TACROLIMUS (STL-PB) 3.7 ng/mL Apr 08, 2025 08:17 AM [facility] RENAL PANEL PLASMA Specimen Type: PLASM A Comment: No hemolysis noted. Ordering Provider: FRANCISCO DAILY Report Released Date/Time: Sep 27, 2024 12:13 PM Reporting Lab: [address] [phone] Performing Lab: [address] [address] CREATININE 1.63 mg/dL H 0.7-1.3 UREA NITROGEN 31.9 mg/dL H 9.0-25.0 GLUCOSE 143 mg/dL H 72-99 SODIUM 136 meq/L 136-145 POTASSIUM 4.5 meq/L 3.5-5 CHLORIDE 110 meq/L H 98-107 CARBON DIOXIDE 20 meq/L L 22-31 CALCIUM 9.0 mg/dL 8.4-10.4 PHOSPHOROUS 4.2 mg/dL 2.3-4.7 ALBUMIN 3.6 g/dL 3.4-5 EGFR (CKD-EPI 2020) 44.8 >60 Apr 08, 2025 08:17 AM [facility] URINALYSIS (STL-PB) URINE Specimen Type: URIN E No comment entered. Ordering Provider: FRANCISCO DAILY Report Released Date/Time: Sep 27, 2024 12:13 PM Reporting Lab: [address] [address] Performing Lab: [place] [phone] URINE COLOR Light-Yellow Yellow U.BILIRUBIN Negative mg/dL Negative U.PH 6.0 5.0-8.0 APPEARANCE Clear Clear U.NITRITE Negative mg/dL Negative URN.GLUCOSE 1000 mg/dL H Negative URN.PROTEIN Negative mg/dL URN.UROBILINOGEN Normal mg/dL Normal URN.BLOOD Negative mg/dL Negative-Trace URN.KETONES Negative mg/dL Negative-Trac e URN.LEUK.EST. Negative mg/dL Negative-Tr malu URN.SPECIFIC GRAVITY 1.015 Apr 08, 2025 08:17 AM [facility] CBC BLOOD Specimen Type: BLOOD No comment entered. Ordering Provider: FRANCISCO DAILY Report Released Date/Time: Sep 27, 2024 12:13 PM Reporting Lab: [address] [place] [address] Performing Lab: [place] [address] [facility] [phone] WBC 5.3 10*3/uL 3.6-11.2 RBC 4.30 10*6/uL [...] 0.00-0. 20 Mar 18, 2025 12:46 PM [facility] TSH W/ REFLEX FT4 (STL) PLASMA Specimen Type: PLASMA No comment entered. Ordering Provider: HELEN MATTHEWS Report Released Date/Time: Mar 18, 2025 11:52 AM Reporting Lab: [place] [address] [facility] [phone] Performing Lab: [place] [address] [facility] [address] TSH 1.692 u[IU]/mL 0.47-5 Mar 18, 2025 12:46 PM [facility] IRON/TIBC PROFILE SERUM Specimen Type: SERUM No comment entered. Ordering Provider: HELEN MATTHEWS Report Released Date/Time: Mar 18, 2025 11:52 AM Reporting Lab: [address] [address] Performing Lab: [facility] [address] [facility] [phone] TIBC 304 ug/dL 250-450 TRANSFERRIN 243 mg/dL 163-344 IRON SATURATION 23 20-50 IRON 69 ug/dL 65-175 Mar 18, 2025 12:46 PM [facility] URINALYSIS (L-PB) URINE Specimen Type: URIN E No comment entered. Ordering Provider: FRANCISCO DAILY Report Released Date/Time: Sep 27, 2024 12:13 PM Reporting Lab: [place] [address] [facility] [phone] Performing Lab: [address] [address] URINE COLOR Light-Yellow Yellow U.BILIRUBIN Negative mg/dL Negative U.PH 6.0 5.0-8.0 APPEARANCE Clear Clear U.NITRITE Negative mg/dL Negative URN.GLUCOSE Normal mg/dL Negative URN.PROTEIN Negative mg/dL URN.UROBILINOGEN Normal mg/dL Normal URN.BLOOD Negative mg/dL Negative-Trace URN.KETONES Negative mg/dL Negative-Trac e URN.LEUK.EST. Negative mg/dL Negative-Tr malu URN.SPECIFIC GRAVITY 1.019 Mar 11, 2025 08:33 AM [facility] HGA1C BLOOD Specimen Type: BLOOD No comment entered. Ordering Provider: FRANCISCO DAILY Report Released Date/Time: Sep 27, 2024 12:13 PM Reporting Lab: [address] [address] Performing Lab: [address] [phone] HGA1C 8.1 H 4.0-6.0 Mar 11, 2025 08:33 AM [facility] TACROLIMUS (L-PB) BLOOD Specimen Type: BLOO D No comment entered. Ordering Provider: FRANCISCO DAILY Report Released Date/Time: Sep 27, 2024 12:13 PM Reporting Lab: [address] [phone] Performing Lab: [address] [address] TACROLIMUS (STL-PB) 5.5 ng/mL Mar 11, 2025 08:33 AM [facility] RENAL PANEL PLASMA Specimen Type: PLASM A Comment: No hemolysis noted. Ordering Provider: FRANCISCO DAILY Report Released Date/Time: Sep 27, 2024 12:13 PM Reporting Lab: [address] [phone] Performing Lab: [address] [address] CREATININE 1.77 mg/dL H 0.7-1.3 UREA NITROGEN 34.2 mg/dL H 9.0-25.0 GLUCOSE 148 mg/dL H 72-99 SODIUM 134 meq/L L 136-145 POTASSIUM 4.5 meq/L 3.5-5 CHLORIDE 105 meq/L 98-107 CARBON DIOXIDE 23 meq/L 22-31 CALCIUM 9.3 mg/dL 8.4-10.4 PHOSPHOROUS 2.9 mg/dL 2.3-4.7 ALBUMIN 3.6 g/dL 3.4-5 EGFR (CKD-EPI 2020) 40.6 >60 Mar 11, 2025 08:33 AM [facility] CBC BLOOD Specimen Type: BLOOD No comment entered. Ordering Provider: FRANCISCO DAILY Report Released Date/Time: Sep 27, 2024 12:13 PM Reporting Lab: [address] [phone] Performing Lab: [address] [phone] WBC 6.5 10*3/uL 3.6-11.2 RBC 4.23 10*6/uL [...] Height Weight Body Mass Index Source Mar 25, 2025 01:40 PM 62 /min 126/66 mm[Hg] 16 /min 97 % [address] [facility] Social History: Smoking Status (Most current) and Tobacco Use (All prior to encounter date) This section includes the most current, and the historical, smoking and tobacco- related health factors from the [place] facility where the Encounter took place. Current Smoking Status This section includes the most current smoking, or tobacco-related health factor, from the [place] facility where the Encounter took place. Date/Time Current Smoking Status Comment Jg ity Nov 22, 2021 10:00 AM VA-TOBACCO NEVER USED [facility] Tobacco Use History This section includes a history of the smoking, or tobacco-related health factors, that were collected on or before the date of the Encounter. The data comes from the [place] facility where the Encounter took place. Date/Time Smoking Status/Tobacco Use Comment F [email or web address] Sep 26, 2018 08:30 AM VA-TOBACCO NEVER [facility]ED [facility] Jun 25, 2018 10:53 AM [facility]ACCO [facility] Dec 22, 2017 10:58 AM VA-TOBACCO NEVER [facility]ED [facility] Jun 28, 2017 11:04 AM LIFETIME NON-USER OF TOBACCO [facility] Jun 21, 2017 09:54 AM LIFETIME NON-USER OF TOBAC CO non user [facility] May 10, 2017 09:43 AM LIFETIME NON-USER OF TOBAC CO never [facility] Feb 17, 2017 08:27 AM LIFETIME NON-USER OF TOBACCO . [facility] January 14, 2016 02:12 PM LIFETIME NON-USER OF TOBACCO . [facility] Encounter Notes: All associated encounter notes This section contains the clinical notes associated to the Encounter. Date/Time Encounter Note(s) Provider Source Mar 26, 2025 06:05 AM ADDENDUM: LOCAL TITLE: Addendum STANDARD TITLE: ADDENDUM DATE OF NOTE: MAR 26, 2025@06:05:32 ENTRY DATE: MAR 26, 2025@06:05:33 AUTHOR: HELEN MATTHEWS EXP COSIGNER: URGENCY: STATUS: COMPLETED Jada is on an insulin pump and followed by endocrinology . Please give patient the number to endo crinology to discuss his latest hba1c . Please schedule patient a phone visit with me if he has questions about his labs /es/ HELEN MATTHEWS Signed: 03/26/2025 06:07 Receipt Acknowledged By: 03/26/2025 08:46 /charly/ ESDRAS SANDOVAL MSN RN REGISTERED NURSE 03/26/2025 10:41 /charly/ ESDRAS VANCE ADVANCED NATURAL FABRICATOR --- Original Document --- 03/25/25 V15 PACT FACE TO FACE NOTE STL: Nurse Visit: Patient Identifiers : Full Name Date of Reason for visit: toe follow up PT was seen March 18 by PCP. Given abx for right toe abrasion = will give patient keflex 500mg po bid x 10 day and bactroban ointment daily Rn assessed pt's right 2nd toe, no swelling or redness noted, no drainage. Small scab noted. Pt w/ neuropathy, no c/o pain Mode of Arrival: Ambulatory Allergy Review: MORPHINE Allergy list reviewed and remains current. Recent Vital Signs: Temperature: 97.3 F [36.3 C] (03/18/2025 11:13) Pulse: 62 (03/25/2025 13:40) Respiration: 16 (03/25/2025 13:40) B/P: 126/66 (03/25/2025 13:40) Pain: 0 (03/25/2025 13:40) Wt: 215 lb [97.52 kg] (03/18/2025 11:13) Ht: 71 in [180.3 cm] (10/04/2024 08:03) BMI: 30.0 POX: 97% (03/25/2025 13:40) Pt would like to discuss his lab results, he was concerned about TSH but appears WNL. However his A1C is 8.1 /es/ ESDRAS SANDOVAL MSN RN REGISTERED NURSE Signed: 03/25/2025 14:20 Receipt Acknowledged By: 03/26/2025 06:04 /charly/ HELEN BILLINGS [facility] Mar 25, 2025 02:10 PM NURSING NOTE: LOCAL TITLE: 5 PACT FACE TO FACE NOTE STL STANDARD TITLE: NURSING NOTE DATE OF NOTE: MAR 25, 2025@14:10 ENTRY DATE: MAR 25, 2025@14:10:35 AUTHOR: ESDRAS SANDOVAL EXP COSIGNER: URGENCY: STATUS: COMPLETED V15 PACT FACE TO FACE NOTE STL Has ADDENDA Nurse Visit: Patient Identifiers : Full Name Date of Reason for visit: toe follow up PT was seen March 18 by PCP. Given abx for right toe abrasion = will give patient keflex 500mg po bid x 10 day and bactroban ointment daily Rn assessed pt's right 2nd toe, no swelling or redness noted, no drainage. Small scab noted. Pt w/ neuropathy, no c/o pain Mode of Arrival: Ambulatory Allergy Review: MORPHINE Allergy list reviewed and remains current. Recent Vital Signs: Temperature: 97.3 F [36.3 C] (03/18/2025 11:13) Pulse: 62 (03/25/2025 13:40) Respiration: 16 (03/25/2025 13:40) B/P: 126/66 (03/25/2025 13:40) Pain: 0 (03/25/2025 13:40) Wt: 215 lb [97.52 kg] (03/18/2025 11:13) Ht: 71 in [180.3 cm] (10/04/2024 08:03) BMI: 30.0 POX: 97% (03/25/2025 13:40) Pt would like to discuss his lab results, he was concerned about TSH but appears WNL. However his A1C is 8.1 /charly/ ESDRAS SANDOVAL MSN RN REGISTERED NURSE Signed: 03/25/2025 14:20 Receipt Acknowledged By: 03/26/2025 06:04 /charly/ HELEN MATTHEWS 03/26/2025 ADDENDUM STATUS: COMPLETED Jada is on an insulin pump and followed by endocrinology . Please give patient the number to endo crinology to discuss his latest hba1c . Please schedule patient a phone visit with me if he has questions about his labs /charly/ HELEN MATTHEWS Signed: 03/26/2025 06:07 Receipt Acknowledged By: * AWAITING SIGNATURE * ESDRAS SANDOVAL * AWAITING SIGNATURE * ESDRAS VANCE JENNIFER A [facility]
--- OUTSIDE RECORDS SUMMARY | 2025-03-27 07:30 | XMS_ITS | Encounter Summary ---
Author Name [facility] Organization [facility] Address [address] [place] [address] Care Team Providers Care Nurse Transition Name Role Phone HELEN MATTHEWS Primary Care [...] PART A Feb 09, 2019 PART A [id number] ANA GANNON EPH PATIENT MEDICARE (WNR) MEDICARE (M) PART B Feb 09, 2019 PART B [id number] ANA GANNON EPH PATIENT MEDICARE (WNR) MEDICARE (M) PART A Feb 09, 2019 PART A [id number] ANA GANNON EPH PATIENT MEDICARE (WNR) MEDICARE (M) PART B Feb 09, 2019 PART B [id number] ANA GANNON EPH PATIENT MEDICARE (WNR) MEDICARE (M) PART A Feb 09, 2019 PART A [id number] ANA GANNON EPH PATIENT MEDICARE (WNR) MEDICARE (M) PART B Feb 09, 2019 PART B [id number] ANA GANNON EPH PATIENT MEDICARE PART D (WNR) MEDICARE (M) PART D Sep 11, 2019 PART D [id number] ANA GANNON EPH PATIENT Selected Encounter This section includes the information on record at OR for the Encounter. Date/Time Encounter Type Encounter Description Reason Provider Source Mar 27, 2025 12:30 PM OFFICE O/P EST HI 40 MIN CARDIOLOGY ICD-10-CM R00.1 Bradycardia, unspecified DAVION SKINNER [facility] Encounter Template Text not used by OR Assessments - Encounter Diagnoses This section includes the primary and secondary diagnoses documented for the Encounter. 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 DAVION SKINNER [facility] Apr 11, 2025 10:24 AM SECONDARY Other sleep apnea [facility] Apr 11, 2025 10:24 AM SECONDARY Patent foramen ovale [facility] Apr 11, 2025 10:24 AM SECONDARY Personal history of other venous thrombosis and embolism [facility] Apr 11, 2025 10:24 AM SECONDARY Presence of cardiac pacemaker DAVION SKINNER [facility] Plan of Treatment: Future Appointments (+ 6 months) and Future Tests (+/- 45 days) The Plan of Treatment section includes future care activities for the patient from [facility] This section includes future appointments and future orders which are active, pending or scheduled. Future Appointments This section includes appointments that were scheduled to occur 6 months from the date of the Encounter, up to a maximum of 20 appointments. The data comes from all [facility]. Appointment Date/Time Appointment Type Appointme nt Facility Name Apr 07, 2025 08:30 AM AMBULATORY - MEDICINE [facility] Apr 10, 2025 10:00 AM AMBULATORY - MEDICINE [facility] Apr 22, 2025 11:00 AM AMBULATORY - MEDICINE [facility] May 19, 2025 12:15 PM AMBULATORY - MEDICINE [facility] May 28, 2025 10:00 AM AMBULATORY - REHAB MEDICIN E [facility] May 30, 2025 10:00 AM AMBULATORY - MEDICINE [facility] Jun 12, 2025 09:30 AM AMBULATORY - MEDICINE [facility] Aug 20, 2025 09:15 AM AMBULATORY - MEDICINE [facility] Sep 18, 2025 11:00 AM AMBULATORY - MEDICINE [facility] Sep 26, 2025 10:00 AM AMBULATORY - MEDICINE [facility] Active, Pending, and Scheduled Orders This section includes a listing of several types of active, pending, and scheduled orders, including clinic medications orders, diagnostic test orders, procedure orders and consult orders; where the start date of the order is 45 days before the date of the Encounter or 45 days after the date of theEncounter. The data comes from all [facility]. Test Date/Time Test Type Test Details Facility Name Mar 27, 2025 02:19 PM Consult Order CARDIOPULM REHAB CLINIC OUTPATIENT FATEMEH Cons Chair Pad Maker's Choice [facility] Lab Results: +/- 30 days of [...] Type Comment Apr 08, 2025 08:17 AM [facility] TACROLIMUS (STL-PB) BLOOD Specimen Type: BLOOD No comment entered. Ordering Provider: FRANCISCO DAILY Report Released Date/Time: Sep 27, 2024 12:13 PM Reporting Lab: [place] [address] [facility] [address] Performing Lab: [place] [address] [facility] [address] TACROLIMUS (STL-PB) 3.7 ng/mL Apr 08, 2025 08:17 AM [facility] URINALYSIS (L-PB) URINE Specimen Type: URIN E No comment entered. Ordering Provider: FRANCISCO DAILY Report Released Date/Time: Sep 27, 2024 12:13 PM Reporting Lab: [place] [address] [facility] [address] Performing Lab: [place] [address] [facility] [address] URINE COLOR Light-Yellow Yellow U.BILIRUBIN Negative mg/dL Negative U.PH 6.0 5.0-8.0 APPEARANCE Clear Clear U.NITRITE Negative mg/dL Negative URN.GLUCOSE 1000 mg/dL H Negative URN.PROTEIN Negative mg/dL URN.UROBILINOGEN Normal mg/dL Normal URN.BLOOD Negative mg/dL Negative-Trace URN.KETONES Negative mg/dL Negative-Trac e URN.LEUK.EST. Negative mg/dL Negative-Tr sam URN.SPECIFIC GRAVITY 1.015 Apr 08, 2025 08:17 AM [facility] RENAL PANEL PLASMA Specimen Type: PLASM A Comment: No hemolysis noted. Ordering Provider: FRANCISCO DAILY Report Released Date/Time: Sep 27, 2024 12:13 PM Reporting Lab: [place] [address] [facility] [phone] Performing Lab: [address] [place] [address] CREATININE 1.63 mg/dL H 0.7-1.3 UREA NITROGEN 31.9 mg/dL H 9.0-25.0 GLUCOSE 143 mg/dL H 72-99 SODIUM 136 meq/L 136-145 POTASSIUM 4.5 meq/L 3.5-5 CHLORIDE 110 meq/L H 98-107 CARBON DIOXIDE 20 meq/L L 22-31 CALCIUM 9.0 mg/dL 8.4-10.4 PHOSPHOROUS 4.2 mg/dL 2.3-4.7 ALBUMIN 3.6 g/dL 3.4-5 EGFR (CKD-EPI 2020) 44.8 >60 Apr 08, 2025 08:17 AM [facility] CBC BLOOD Specimen Type: BLOOD No comment entered. Ordering Provider: FRANCISCO DAILY Report Released Date/Time: Sep 27, 2024 12:13 PM Reporting Lab: [address] [address] Performing Lab: [address] [address] WBC 5.3 10*3/uL 3.6-11.2 RBC 4.30 10*6/uL [...] 0.00-0. 20 Mar 18, 2025 12:46 PM [facility] TSH W/ REFLEX FT4 (STL) PLASMA Specimen Type: PLASMA No comment entered. Ordering Provider: HELEN MATTHEWS Report Released Date/Time: Mar 18, 2025 11:52 AM Reporting Lab: [address] [address] Performing Lab: [address] [address] TSH 1.692 u[IU]/mL 0.47-5 Mar 18, 2025 12:46 PM [facility] URINALYSIS (STL-PB) URINE Specimen Type: URIN E No comment entered. Ordering Provider: FRANCISCO DAILY Report Released Date/Time: Sep 27, 2024 12:13 PM Reporting Lab: [address] [address] Performing Lab: [address] [address] URINE COLOR Light-Yellow Yellow U.BILIRUBIN Negative mg/dL Negative U.PH 6.0 5.0-8.0 APPEARANCE Clear Clear U.NITRITE Negative mg/dL Negative URN.GLUCOSE Normal mg/dL Negative URN.PROTEIN Negative mg/dL URN.UROBILINOGEN Normal mg/dL Normal URN.BLOOD Negative mg/dL Negative-Trace URN.KETONES Negative mg/dL Negative-Trac e URN.LEUK.EST. Negative mg/dL Negative-Tr sam URN.SPECIFIC GRAVITY 1.019 Mar 18, 2025 12:46 PM [facility] IRON/TIBC PROFILE SERUM Specimen Type: SERUM No comment entered. Ordering Provider: HELEN MATTHEWS Report Released Date/Time: Mar 18, 2025 11:52 AM Reporting Lab: [address] [address] Performing Lab: [address] [address] TIBC 304 ug/dL 250-450 TRANSFERRIN 243 mg/dL 163-344 IRON SATURATION 23 20-50 IRON 69 ug/dL 65-175 Mar 11, 2025 08:33 AM [facility] HGA1C BLOOD Specimen Type: BLOOD No comment entered. Ordering Provider: FRANCISCO DAILY Report Released Date/Time: Sep 27, 2024 12:13 PM Reporting Lab: [facility] [address] [facility] [address] Performing Lab: [address] [address] HGA1C 8.1 H 4.0-6.0 Mar 11, 2025 08:33 AM [facility] TACROLIMUS (STL-PB) BLOOD Specimen Type: BLOO D No comment entered. Ordering Provider: FRANCISCO DAILY Report Released Date/Time: Sep 27, 2024 12:13 PM Reporting Lab: [address] [address] Performing Lab: [address] [address] TACROLIMUS (STL-PB) 5.5 ng/mL Mar 11, 2025 08:33 AM [facility] RENAL PANEL PLASMA Specimen Type: PLASM A Comment: No hemolysis noted. Ordering Provider: FRANCISCO DAILY Report Released Date/Time: Sep 27, 2024 12:13 PM Reporting Lab: [address] [address] Performing Lab: [address] [address] CREATININE 1.77 mg/dL H 0.7-1.3 UREA NITROGEN 34.2 mg/dL H 9.0-25.0 GLUCOSE 148 mg/dL H 72-99 SODIUM 134 meq/L L 136-145 POTASSIUM 4.5 meq/L 3.5-5 CHLORIDE 105 meq/L 98-107 CARBON DIOXIDE 23 meq/L 22-31 CALCIUM 9.3 mg/dL 8.4-10.4 PHOSPHOROUS 2.9 mg/dL 2.3-4.7 ALBUMIN 3.6 g/dL 3.4-5 EGFR (CKD-EPI 2020) 40.6 >60 Mar 11, 2025 08:[address] [facility] CBC BLOOD Specimen Type: BLOOD No comment entered. Ordering Provider: FRANCISCO DAILY Report Released Date/Time: Sep 27, 2024 12:13 PM Reporting Lab: [facility] [address] [facility] [address] Performing Lab: [facility] [address] [facility] [address] WBC 6.5 10*3/uL 3.6-11.2 RBC 4.23 10*6/uL [...] Height Weight Body Mass Index Source Mar 27, 2025 12:28 PM 97.3 F 73 /min 110/71 mm[Hg] 18 /min 96 % 0 215 lb 30 [facility] N Social History: Smoking Status (Most current) and Tobacco Use (All prior to encounter date) This section includes the most current, and the historical, smoking and tobacco- related health factors from the [place] facility where the Encounter took place. Current Smoking Status This section includes the most current smoking, or tobacco-related health factor, from the [facility] facility where the [facility]counter took place. Date/Time Current Smoking Status Comment Jg crowe Apr 12, 2024 02:09 PM VA-TOBACCO NEVER USED [facility] Tobacco Use History This section includes a history of the smoking, or tobacco-related health factors, that were collected on or before the date of the Encounter. The data comes from the [facility] where the Encounter took place. Date/Time Smoking Status/Tobacco Use Comment Thuy acility Nov 07, 2022 01:35 PM VA-TOBACCO NEVER USED [facility] Mar 17, 2021 07:44 PM ORYX ADMIT TOBACCO SCREEN NO [facility] Dec 18, 2020 11:14 PM VA-TOBACCO NEVER USED [facility] Dec 18, 2020 08:23 PM ORYX ADMIT TOBACCO SCREEN NO [facility] Nov 14, 2006 01:52 PM LIFETIME NON-USER OF TOBACCO [facility] Nov 22, 2005 02:20 PM LIFETIME NON-TOBACCO USER [facility] Dec 08, 2004 01:37 PM LIFETIME NON-TOBACCO USER [facility] Jul 28, 2004 01:13 PM LIFETIME NON-TOBACCO USER [facility] Jul 09, 2003 01:05 PM LIFETIME NON-TOBACCO USER [facility] Jun 26, 2002 02:05 PM LIFETIME NON-TOBACCO USER [facility] May 23, 2001 01:12 PM LIFETIME NON-TOBACCO USER [facility] Jun 14, 2000 01:24 PM LIFETIME NON-TOBACCO USER [facility] Encounter Notes: All associated encounter notes This section contains the clinical notes associated to the Encounter. Date/Time Encounter Note(s) Provider Source Mar 27, 2025 12:28 PM CARDIOLOGY OUTPATI ENT NOTE: LOCAL TITLE: CARDIOLOGY OUTPATIENT FOLLOW UP [facility] STANDARD TITLE: CARDIOLOGY OUTPATIENT NOTE DATE OF NOTE: MAR 27, 2025@12:28 ENTRY DATE: MAR 27, 2025@12:29:03 AUTHOR: DAVION SKINNER COSIGNER: URGENCY: STATUS: COMPLETED Cardiology Outpatient Note [facility] CARDIOLOGY SERVICE: CARDIOLOGY NOTE REASON FOR VISIT: Follow-up for pacemaker, CAD, paroxysmal atrial fibs HPI: Sean Gannon is a pleasant 70-year-old male with a pertinent medical history of [...] MEDARDO using his CPAP, hypertension. Device check Sep 2024 showed several episodes of atrial fib, atrial [...] 5 mg twice daily for stroke prophylaxis. [id number] HTN, CAD, DMT2, age, CRD =5 Mico reported continued shortness of breath. He reported a syncopal episode couple months prior to our visit that coincided with the atrial fib episodes noted on July 05. There had been no episodes of syncope or atrial fib since July 06, He does see lymphedema clinic for the right lower leg swelling. In September 2024 RHC was completed showing mild pulmonary HTN, he has been discharged from pulmonary clinic. He reported that he and his had COVID together. This has not helped his shortness of breath. He had questioned whether or not his PFO with the deoxygenated blood mixed in with his oxygenated blood causing him to be short of breath. Structural Heart was consulted and rec AC which he is on. . today education was given on sleep apnea causing pulmonary hypertension. He is getting reacquainted with his CPAP and will do better. Right now getting 3 to 4 hours of sleep each night. He denies chest pain, denies fast or irregular heartbeats, he does have lower leg swelling reports taking his Bumex 1mg about every 3 days. He did this on his own due to his kidney function. Creatinine noted to be 1.77, was 1.55 at last draw in October. Denies excessive bruising or bleeding, syncope or near syncope. Does report feeling short of breath and would like to do cardial pulm rehab at the [facility] that is close to his house. [facility] Social hx: Denies smoking, excessive alcohol use, denies recreational drug use Family hx: Noncontributory ROS: 11 point review of systems completed with all pertinent information placed in HPI ACTIVE PROBLEMS: 1) Diabetic nephropathy (SNOMED CT 183086864) 2) Ulcer of lower Limb, unspecified (ICD-9-CM 707.10) 3) Erectile dysfunction due to diabetes mellitus (SNOMED CT 231369829) 4) Anemia in Chronic Kidney Disease (ICD-9-CM 285.21) 5) HTN - Hypertension (SNOMED CT 80707827) 6) GERD * (ICD-9-CM 530.81) 7) Acidosis, metabolic NEC (ICD-9-CM 276.2) 8) Diabetic nephropathy (SNOMED CT 144728088) 9) Hypertensive chronic kidney disease, unspecified, with chronic kidney disease St 10) History of - kidney recipient (SNOMED CT 334219499) 11) Other Fluid Overload (ICD-9-CM 276.69) 12) [...] contractility with LVEF of 82%. CORONARY ANGIOGRAPHY [place] Vessels Summary: Nonobstructive CAD Dominance: Right dominant [...] rPLV branches. Mild luminal irregularities distally. HEART MONITORS:CPXi DC PM last Download: Nov 20, 2024 00:51 no AHR or VHR noted since July 06, 2024 A paced 72% V Paced 0% LAST LABS: TSH: TSH 1.692 uIU/mL 03/18/2025 12:46 TRIGLYCERIDE 68 mg/dL 09/19/2024 09:34 CHOLESTEROL 92 mg/dL 09/19/2024 09:34 HDL(New) 43 mg/dL 09/19/2024 09:34 CALCULATED LDL 35 mg/dL 09/19/2024 09:34 HGA1C 8.1 H % 03/11/2025 08:33 WBC 6.5 10*3/uL 03/11/2025 08:33 RBC 4.23 [...] IMMATURE PLT FRACTION 3.8 % 04/01/2024 11:24 Comprehensive Metabolic Panel Results: SODIUM 134 L mEq/L 03/11/2025 08:33 POTASSIUM [...] 08:33 EGFR (CKD-EPI 2020) 40.6 03/11/2025 08:33 PHYSICAL ASSESSMENT GENERAL: well-mannered, well-groomed 70 yo male NECK: no JVD, no carotid bruit CARDIO: RRR, S1S2 present, no murmur PULM: LSCB, no cough, rales or wheeze ABDOMEN: nondistended, nontender and soft EXTREMITIES: 2+ post tibial pulses, with no edema NEUROLOGIC: AAOx3, normal motor strength PSYCHIATRIC: affect and mood normal VITALS: 215 lb [97.52 kg] (03/18/2025 11:13) 71 in [180.3 cm] (10/04/2024 08:03) Temperature: 97.3 F [36.3 C] (03/27/2025 12:28) Blood Pressure: 110/71 (03/27/2025 12:28) Pulse: 73 (03/27/2025 12:28) Respirations: 18 (03/27/2025 12:28) ECG: Atrially paced rhythm with prolonged AV conduction, 64 bpm, QTc 400 ms ASSESSMENT AND PLAN 1.bradycardia s/p pacemaker. placed [employer] [place] PM 12/18/2018 rate response increased Atrial paced 80% <1% in the V 2. paroxysmal atrial fib. He is on anticoagulation with apixaban 5 mg twice daily. [id number] HTN, CAD, DMT2, age, CRD =5 2. CRF with preserved EF of 55-60% Status post kidney transplant: March 2012 recurrent LE swelling on Bumex 1 mg every 3 days. Does see lymphedema clinic Tacrolimus 2 mg daily and 1 mg in the evening to prevent transplant rejection Sodium bicarb 1300 mg 2X/day per renal 3.bilat lower leg edema. Bumex every 3rd day, creatinine 1.77 f/u with lymphedema clinic 4. HLD: last LDL 35 mg/dL Continue atorvastatin 10 mg 5. History of venous thrombosis right leg\ after transplant Continue apixaban Follow-up with vascular per clinical indications 6. COPD: Will place cardio/pulm rehab consult pulmonary discharged reporting his SOB most likely related to his heart/RT heart failure. Comanaged with pulmonology 7. DMT2: Last A1c 7.5 now 8.1 Reports did not eat well during time of the move into his new home Continue insulin and follow-up PCP 8. CAD: Nonobstructive Negative for angina or anginal equivalent Continue metoprolol, atorvastatin, amlodipine, lisinopril 9. MEDARDO has CPAP just recently started to use it once again getting 3 to 4 hours of use each night 10. HTN BP 110/71 well-controlled Continue amlodipine, lisinopril, metoprolol tartrate, Bumex as needed 11. PFO on apixaban. RTC in 6 months Spent 40 min [...] completed, the results will be found in [facility]. # HEALTH PROMOTION/HEALTH MAINTENANCE & EDUCATION [...] Treatment Orders /es/ DAVION SKINNER NP CARDIOLOGY/ELECTROPHYSIOLOGY TELECOMMUNICATIONS PROJECT MANAGER Signed: 03/27/2025 14:30 DAVION SKINNER [facility]
--- OUTSIDE RECORDS SUMMARY | 2025-04-10 05:00 | XMS_ITS | Encounter Summary ---
Author Name [facility] [place] [facility] [place] [facility] [place] Address [address] [place] [address] Care Team Providers Care Exhaust Emissions Automotive Technician Name Role Phone HELEN MATTHEWS Primary Care [...] PART A Feb 09, 2019 PART A [id number] ANA GANNON EPH PATIENT MEDICARE (WNR) MEDICARE (M) PART B Feb 09, 2019 PART B [id number] ANA GANNON EPH PATIENT MEDICARE (WNR) MEDICARE (M) PART A Feb 09, 2019 PART A [id number] ANA GANNON EPH PATIENT MEDICARE (WNR) MEDICARE (M) PART B Feb 09, 2019 PART B [id number] ANA GANNON EPH PATIENT MEDICARE (WNR) MEDICARE (M) PART A Feb 09, 2019 PART A [id number] ANA GANNON EPH PATIENT MEDICARE (WNR) MEDICARE (M) PART B Feb 09, 2019 PART B [id number] ANA GANNON EPH PATIENT MEDICARE PART D (WNR) MEDICARE (M) PART D Sep 11, 2019 PART D [id number] ANA GANNON PATIENT Selected Encounter This section includes the information on record at [place] for the Encounter. Date/Time Encounter Type Encounter Description Reason Provider Source Apr 10, 2025 10:00 AM OFFICE O/P EST HI 40 MIN RENAL/NEPHROL(EXCE PT DIALYSIS) ICD-10-CM I49.5 Sick sinus syndrome SRI WINTERS Suzette Encounter Template Text not used by [place] Assessments - Encounter Diagnoses This section includes the primary and secondary diagnoses documented for the Encounter. Date/Time Primary/Secondary Diagnosis Diagnosis Name Provider Source Apr 10, 2025 10:34 AM PRIMARY Sick sinus syndrome SRI WINTERS [facility] Apr 10, 2025 10:34 AM SECONDARY Atherosclerosis of CABG w/o angina pectoris SRI WINTERS [facility] Apr 10, 2025 10:34 AM SECONDARY Diabetes due to undrl cond w diabetic chronic kidney disease SRI WINTERS [facility] Apr 10, 2025 10:34 AM SECONDARY Encounter for aftercare following kidney transplant SRI WINTERS [facility] Apr 10, 2025 10:34 AM SECONDARY Encounter for therapeutic drug level monitoring SRI WINTERS [facility] Apr 10, 2025 10:34 AM SECONDARY Hyp chr kidney disease w stage 5 chr kidney disease or ESRD SRI WINTERS [facility] Apr 10, 2025 10:34 AM SECONDARY Kidney transplant status SRI WINTERS [facility] Apr 10, 2025 10:34 AM SECONDARY Osteomyelitis, unspecified [facility] Apr 10, 2025 10:34 AM SECONDARY [facility] ap[facility] Apr 10, 2025 10:34 AM SECONDARY Personal history of other venous thrombosis and embolism [facility] Apr 10, 2025 10:34 AM SECONDARY [facility] Apr 10, 2025 10:34 AM SECONDARY Presence of insulin pump (external) (internal) [facility] Apr 10, 2025 10:34 AM SECONDARY Type 1 diabetes mellitus with diabetic nephropathy [facility] Plan of Treatment: Future Appointments (+ 6 months) and Future Tests (+/- 45 days) The Plan of Treatment section includes future care activities for the patient from all [place] treatmentcilities. This section includes future appointments and future orders which are active, pending or scheduled. Future Appointments This section includes appointments that were scheduled to occur 6 months from the date of the Encounter, up to a maximum of 20 appointments. The data comes from all [place] treatment facilities. Appointment Date/Time Appointment Type Appointme nt Facility Name Apr 22, 2025 11:00 AM AMBULATORY - MEDICINE [facility] May 19, 2025 12:15 PM AMBULATORY - MEDICINE [facility] May 28, 2025 10:00 AM AMBULATORY - REHAB MEDICIN E [facility] May 30, 2025 10:00 AM AMBULATORY - MEDICINE [facility] Jun 12, 2025 09:30 AM AMBULATORY - MEDICINE [facility] Aug 20, 2025 09:15 AM AMBULATORY - MEDICINE [facility] Sep 18, 2025 11:00 AM AMBULATORY - MEDICINE [facility] Sep 26, 2025 10:00 AM AMBULATORY - MEDICINE [facility] Oct 09, 2025 10:00 AM AMBULATORY - MEDICINE [facility] Active, Pending, and Scheduled Orders This section includes a listing of several types of active, pending, and scheduled orders, including clinic medications orders, diagnostic test orders, procedure orders and consult orders; where the start date of the order is 45 days before the date of the Encounter or 45 days after the date of theEncounter. The data comes from all [place] treatment facilities. Test Date/Time Test Type Test Details Facility Name Mar 27, 2025 02:19 PM Consult Order CARDIOPULM REHAB [facility]IC OUTPATIENT [place] Cons Glass Decorator's Choice [facility] May 12, 2025 12:00 AM Laboratory - Chemi stry Order TACROLIMUS (STL-PB) BLOOD SP [facility] May 12, 2025 12:00 AM Laboratory - Chemi stry Order URINALYSIS (L-PB) URINE - CLEAN CATCH [facility] May 12, 2025 12:00 AM Laboratory - Chemi stry Order RENAL PANEL GREEN LI/HEP BLD/PLAS PLASMA SP [facility] May 12, 2025 12:00 AM Laboratory - Chemi stry Order CBC BLOOD [facility] Lab Results: +/- 30 days of the encounter This section includes the Chemistry and Hematology Lab Results on record with [place] for the patient. Radiology Reports and Pathology Reports are provided separately, in subsequent sections. Lab Results This section contains the Chemistry/Hematology Results that were resulted 30 days before or 30 daysafter the date of the Encounter. Date/Time Source Result Type Result - Unit Interpretation Reference Range Specimen Type Comment Apr 08, 2025 08:17 AM [facility] TACROLIMUS (STL-PB) BLOOD Specimen Type: BLOOD No comment entered. Ordering Provider: SRI WINTERS Report Released Date/Time: Sep 27, 2024 12:13 PM Reporting Lab: [facility] [address] [place] [address] Performing Lab: [facility] [address] [facility] [id number] TACROLIMUS (STL-PB) 3.7 ng/mL Apr 08, 2025 08:17 AM [facility] RENAL PANEL PLASMA Specimen Type: PLASM A Comment: No hemolysis noted. Ordering Provider: SRI WINTERS Report Released Date/Time: Sep 27, 2024 12:13 PM Reporting Lab: [facility] [address] [place] [id number] Performing Lab: [address] [address] CREATININE 1.63 mg/dL H 0.7-1.3 UREA NITROGEN 31.9 mg/dL H 9.0-25.0 GLUCOSE 143 mg/dL H 72-99 SODIUM 136 meq/L 136-145 POTASSIUM 4.5 meq/L 3.5-5 CHLORIDE 110 meq/L H 98-107 CARBON DIOXIDE 20 meq/L L 22-31 CALCIUM 9.0 mg/dL 8.4-10.4 PHOSPHOROUS 4.2 mg/dL 2.3-4.7 ALBUMIN 3.6 g/dL 3.4-5 EGFR (CKD-EPI 2020) 44.8 >60 Apr 08, 2025 08:17 AM [facility] URINALYSIS (STL-PB) URINE Specimen Type: URIN E No comment entered. Ordering Provider: SRI WINTERS Report Released Date/Time: Sep 27, 2024 12:13 PM Reporting Lab: [address] [address] Performing Lab: [address] [address] URINE COLOR Light-Yellow Yellow U.BILIRUBIN Negative mg/dL Negative U.PH 6.0 5.0-8.0 APPEARANCE Clear Clear U.NITRITE Negative mg/dL Negative URN.GLUCOSE 1000 mg/dL H Negative URN.PROTEIN Negative mg/dL URN.UROBILINOGEN Normal mg/dL Normal URN.BLOOD Negative mg/dL Negative-Trace URN.KETONES Negative mg/dL Negative-Trac e URN.LEUK.EST. Negative mg/dL Negative-Tr malu URN.SPECIFIC GRAVITY 1.015 Apr 08, 2025 08:17 AM [facility] CBC BLOOD Specimen Type: BLOOD No comment entered. Ordering Provider: SRI WINTERS Report Released Date/Time: Sep 27, 2024 12:13 PM Reporting Lab: [address] [address] Performing Lab: [place] [phone] WBC 5.3 10*3/uL 3.6-11.2 RBC 4.30 10*6/uL [...] 0.00-0. 20 Mar 18, 2025 12:46 PM [facility] TSH W/ REFLEX FT4 (STL) PLASMA Specimen Type: PLASMA No comment entered. Ordering Provider: HELEN MATTHEWS Report Released Date/Time: Mar 18, 2025 11:52 AM Reporting Lab: [address] [address] Performing Lab: [address] [address] TSH 1.692 u[IU]/mL 0.47-5 Mar 18, 2025 12:46 PM [facility] IRON/TIBC PROFILE SERUM Specimen Type: SERUM No comment entered. Ordering Provider: HELEN MATTHEWS Report Released Date/Time: Mar 18, 2025 11:52 AM Reporting Lab: [address] [address] Performing Lab: [address] [address] TIBC 304 ug/dL 250-450 TRANSFERRIN 243 mg/dL 163-344 IRON SATURATION 23 20-50 IRON 69 ug/dL 65-175 Mar 18, 2025 12:46 PM [facility] URINALYSIS (STL-PB) URINE Specimen Type: URIN E No comment entered. Ordering Provider: SRI WINTERS Report Released Date/Time: Sep 27, 2024 12:13 PM Reporting Lab: [facility] [address] [facility] [phone] Performing Lab: [facility] [address] [facility] [phone] URINE COLOR Light-Yellow Yellow U.BILIRUBIN Negative mg/dL [...] Pain Height Weight Body Mass Index Source Apr 10, 2025 09:51 AM 139/67 mm[Hg] [facility] Apr 10, 2025 09:51 AM 97.9 F 73 /min 143/76 mm[Hg] 22 /min 96 % [facility] N Encounter Notes: All associated encounter notes This section contains the clinical notes associated to the Encounter. Date/Time Encounter Note(s) Provider Source Apr 10, 2025 02:56 PM GASTROENTEROLOGY TELEPHONE ENCOUNTER NOTE: LOCAL TITLE: GASTROENTEROLOGY TELEPHONE NOTE [facility] STANDARD TITLE: GASTROENTEROLOGY TELEPHONE ENCOUNTER NOTE DATE OF NOTE: APR 10, 2025@14:56 ENTRY DATE: APR 10, 2025@14:56:13 AUTHOR: OLVIN MOORE EXP COSIGNER: URGENCY: STATUS: COMPLETED GASTROENTEROLOGY TELEPHONE NOTE ST Has ADDENDA GI note Chart reviewed. Elastase was low and he has had large polyps and biopsies for microscopic colitis were negative. Called and spoke to the patient. 50% better but still with symptoms. Will start pancreatic enzymes and schedule for colonoscopy. Patient is agreeable. thanks/JUAN /charly/ OLVIN MOORE Gastroenterology Signed: 04/10/2025 15:03 04/21/2025 ADDENDUM STATUS: COMPLETED Vetran called with questions on what to do with bowel prep. I mailed the appointment letter and detailed instructions. Advised to callback if questions. Also advised talking with jacqui MYERS to discuss best ways to manage blood sugar while on clear liq diet regarding his insulin pump. /charly/ CINDY AVERY BILING[facility] CALL CENTER REPRESENTATIVE CGRN REGISTERED NURSE Signed: 04/21/2025 09:30 LIZA MOORE [facility] Apr 10, 2025 08:02 AM NEPHROLOGY OUTPATIENT NOTE: LOCAL TITLE: NEPHROLOGY OUTPATIENT FOLLOW UP [facility] STANDARD TITLE: NEPHROLOGY OUTPATIENT NOTE DATE OF NOTE: APR 10, 2025@08:02 ENTRY DATE: APR 10, 2025@08:02:17 AUTHOR: SRI WINTERS EXP COSIGNER: URGENCY: STATUS: COMPLETED NEPHROLOGY OUTPATIENT FOLLOW UP ST Has ADDENDA RENAL CLINIC FOLLOW-UP NOTE CHIEF COMPLAINT: Follow-up post kidney transplantation. HISTORY OF PRESENT ILLNESS: Mr. 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 The patient is being seen today via televisit for continued care of his kidney disease,allograft,immunosuppr ession and other medical issues. RENAL PROBLEM LIST: [...] is seen in a wound clinic in [place], [place] on weekly basis for dressings. 13. Extensive right leg deep vein thrombosis with occlusion of the superficial femoral and popliteal veins, as well as partial occlusion of the posterior tibial and peroneal veins on May 04, 2013, on Coumadin therapy with an anticipated treatment time of six months. He was hospitalized at [facility] for right leg swelling in April [...] FUROSEMIDE Indication: FOR FLUID RETENTION (EDEMA) 5) GLUCOSE 4GM CHEW TAB CHEW AND SWALLOW FOUR TABLETS BY MOUTH ACTIVE NEEDED REPEAT DOSE IF HYPOGLYCEMIA CONTINUES 15 MINUTES AFTER THE FIRST DOSE. Indication: FOR LOW BLOOD SUGAR 6) GLUCOSE SENSOR (4) GUARDIAN MMT-7040 USE 1 SENSOR UNDER THE ACTIVE SKIN EVERY WEEK Indication: FOR BLOOD SUGAR MONITORING 7) LISINOPRIL 40MG TAB TAKE ONE TABLET [...] MOUTH EVERY MORNING ACTIVE WITH FOOD 11) RESERVOIR,MINIMED #MMT-332A USE 1 RESERVOIR EVERY THREE ACTIVE (3) DAYS WITH INSULIN PUMP Indication: FOR DIABETES 12) SET,INFUSION MINIMED #MMT-396 USE 1 SET FOR UNDER THE SKIN ACTIVE EVERY THREE (3) DAYS TO BE USED WITH INSULIN PUMP. Indication: FOR INFUSION SET 13) SODIUM BICARBONATE 650MG TAB TAKE TWO TABLETS BY MOUTH TWICE ACTIVE A DAY 14) TACROLIMUS 1MG CAP TAKE TWO CAPSULES BY MOUTH EVERY MORNING ACTIVE AND TAKE ONE CAPSULE EVERY EVENING TO PREVENT TRANSPLANT REJECTION 15) TAMSULOSIN HCL 0.4MG CAP TAKE TWO CAPSULES BY MOUTH EVERY ACTIVE EVENING APPROXIMATELY 30 MINUTES AFTER THE SAME MEAL EACH DAY (FOR PROSTATE) Indication: FOR BENIGN PROSTATIC HYPERPLASIA Physical exam: Temperature: 97.3 F [36.3 C] (03/27/2025 12:28) Blood Pressure: 110/71 (03/27/2025 12:28) Pulse: 73 (03/27/2025 12:28) Respirations: 18 (03/27/2025 12:28) O2 Saturation: 96% (03/27/2025 12:28) Gen: NAD HEENT:anicteric sclera Neck:supple Lungs:CTAb CV:nl s1 and s2 Abd:soft,nontender, no bruits Ext:no edema Neuro:no gross abnormalities Lab Data: CBC: WBC 5.3 10*3/uL 04/08/2025 08:17 RBC 4.30 10*6/uL 04/08/2025 08:17 HGB 12.9 L g/dL 04/08/2025 08:17 HCT 38.0 L % 04/08/2025 08:17 MCV 88.4 fL 04/08/2025 08:17 MCH 30.0 pg 04/08/2025 08:17 MCHC 33.9 g/dL 04/08/2025 08:17 RDW 12.8 % 04/08/2025 08:17 PLT 173 10*3/uL 04/08/2025 08:17 MPV 10.3 fL 04/08/2025 08:17 NEUTROPHILS, AUTO % 52 % 04/08/2025 08:17 LYMPHOCYTES, AUTO % 29 % 04/08/2025 08:17 MONOCYTES, AUTO % 11 % 04/08/2025 08:17 EOSINOPHILS, AUTO % 6 % 04/08/2025 08:17 BASOPHILS, AUTO % 2 % 04/08/2025 08:17 NEUTROPHILS, ABSOLUTE 2.74 10*3/uL 04/08/2025 08:17 LYMPHOCYTES, ABSOLUTE 1.53 10*3/uL 04/08/2025 08:17 MONOCYTES, ABSOLUTE 0.57 10*3/uL 04/08/2025 08:17 EOSINOPHILS, ABSOLUTE 0.30 10*3/uL 04/08/2025 08:17 BASOPHILS, ABSOLUTE 0.10 10*3/uL 04/08/2025 08:[address]T FRACTION 3.8 % 04/01/2024 11:24 Renal Function Panel: SODIUM 136 mEq/L 04/08/2025 08:17 POTASSIUM 4.5 mEq/L 04/08/2025 08:17 CHLORIDE 110 H mEq/L 04/08/2025 08:17 UREA NITROGEN 31.9 H mg/dL 04/08/2025 08:17 CREATININE 1.63 H mg/dL 04/08/2025 08:17 CALCIUM 9.0 mg/dL 04/08/2025 08:17 CARBON DIOXIDE 20 L mEq/L 04/08/2025 08:17 GLUCOSE 143 H mg/dL 04/08/2025 08:17 EGFR (CKD-EPI 2020) 44.8 04/08/2025 08:17 ALBUMIN 3.6 g/dL 04/08/2025 08:17 PHOSPHOROUS 4.2 mg/dL 04/08/2025 08:17 No VITAMIN D 25 HYDROXY EO data found Urine Studies: URINE COLOR Light-Yellow 04/08/2025 08:17 APPEARANCE Clear 04/08/2025 08:17 U.PH 6.0 04/08/2025 08:17 U.BILIRUBIN Negative mg/dL 04/08/2025 08:17 U.NITRITE Negative mg/dL 04/08/2025 08:17 URINE RBC/HPF 1 /HPF 09/19/2024 09:40 URINE WBC/HPF 1 /HPF 11/08/2024 08:52 BACTERIA RARE /HPF 06/21/2024 08:53 MUCUS RARE /LPF 11/08/2024 08:52 HYALINE CASTS 9 /LPF 11/08/2024 08:52 U.SPERM RARE /HPF 11/08/2024 08:52 CREATuF: 72.3 (09/28/23 08:49) RENAL USG: The transplant kidney measures 11.2 [...] function had been with cr ~1.3-1.5 with 1.6-1.9 for the past 4 years (since Aug 2021). Urine with no blood or protein. Lytes WNL. Likely slow progression of kidney disease. I got renal doppler to evaluate and no e/o SHY. 2.High risk Immunosuppression: Currently on prednisone 5 mg daily and tacro 1 mg BID (changed by me in Sep 2023 but erroneously not noted in the prior notes). He takes his meds at 8 am and 6 pm. Tacrolimus levels 4-7. I have stopped the myfortic d/t skin cancer and h/o osteo foot. 3. Hypertension: BP controlled at home with readings below 120/70. He is on lisinopril to 40 mg, metoprolol 100 mg BID, norvasc 10 mg daily and bumex 1 mg (using every 3-4 days). The lower ext edema is unequal b/l and most likely due to chronic DVT/lymphedema. he is followed in the lymphedema clinic. 4. Dyslipidemia: Excellent control on current simvastatin. We will continue without change. LDL 35, HDL 43. 5. Diabetes mellitus type 1: On insulin pump. A1C 8. The patient has been following with the Diabetes Clinic closely, by Dr. Kim at [place] and Dr. Stefanie Yeung here at [place]. Still using the rowing machine and also watching his diet. I have discussed this extensively with the patient. He notes that he has been using an air fryer. Had advised that he see the [facility] for further advice as recommended by amber [...] and was told to come in 3 years. Sees derm every 6 months 9.MEDARDO: not using CPAP at this time since did not tolerate it but is using the CPAP now and may bring the pulm HTN values now. 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 Poor functional capacity, V/Q test neg for PE, ECHO 05/21/2024 + right to left shunt, RHC mild post-capillary pHTN with elevated right and left filling pressure. All above dx test indicate cardiac origin of dyspnea. 10. Health maintainence: Pt is being followed [...] and E.coli. ALEJANDRA negative for endocarditis. 12. Afib/PHTN: Pacemaker placed on December 2018 secondary to chronotropic incompetence. Patient had a very poor heart rate response to exercise. Echo from January 2025 with EF 50-55% with PAP 55 mm Hg. Uses CPAP regularly, Seen by cardio. Will start CP rehab soon. He is on anticoagulation with apixaban 5 mg twice daily. 13. Generalized fatigue: Hgb and TSH WNL. Testosterone levels checked as below: Test Name Result Units Range --------- ------ ----- ----- TESTBIO 71.4 L ng/dL 110.0 - 575.0 SEXHORM 44 nmol/L 22 - 77 ALBUMIN (PB-sendout) 3.9 g/dL 3.6 - 5.1 FR CLEO 39.8 L pg/mL 46.0 - 224.0 TESTOSTERONE, TOTAL 379 ng/dL 250 - 1100 Saw endo but not thought to be concerning and [...] COLON, TRANSVERSE, POLYP, BIOPSY: FOCAL HYPERPLASTIC CHANGES Was scheduled to be repeated in December 2024. Has not had this done. Will alert GI. 15. Anemia due to CKD: Hgb stable. No need for ANNIKA. RTC: 6 months. /charly/ Sri Winters MD STAFF PHYSICIAN - NEPHROLOGY Signed: 04/10/2025 10:34 Receipt Acknowledged By: 04/10/2025 14:46 /charly/ OLVIN MOORE Gastroenterology 04/10/2025 ADDENDUM STATUS: COMPLETED GI note Chart reviewed. Appreciate the nephrology f/u recs and reminder to patient for follow-up colonoscopy due to piecemeal polypectomy. Prep/procedure ordered. Thanks/JUAN /charly/ OLVIN MOORE Gastroenterology Signed: 04/10/2025 14:53 SRI WINTERS [facility]
--- OUTSIDE RECORDS SUMMARY | 2025-04-22 06:00 | XMS_ITS | Encounter Summary ---
Author Name [facility] [facility] [place] Address [address] [place] [address] Care Team Providers Care Certifier Name Role Phone HELEN MATTHEWS Primary Care [...] PART A Feb 09, 2019 PART A [id number] ANA GANNON EPH PATIENT MEDICARE (WNR) MEDICARE (M) PART B Feb 09, 2019 PART B [id number] ANA GANNON EPH PATIENT MEDICARE (WNR) MEDICARE (M) PART A Feb 09, 2019 PART A [id number] [phone] ANA GANNON EPH PATIENT MEDICARE (WNR) MEDICARE (M) PART B Feb 09, 2019 PART B [id number] ANA GANNON PATIENT MEDICARE (WNR) MEDICARE (M) PART A Feb 09, 2019 PART A [id number] ANA GANNON PATIENT MEDICARE (WNR) MEDICARE (M) PART B Feb 09, 2019 PART B [id number] ANA GANNON PATIENT MEDICARE PART D (WNR) MEDICARE (M) PART D Sep 11, 2019 PART D [id number] [phone] ANA GANNON PATIENT Selected Encounter This section includes the information on record at [place] for the Encounter. 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 This section includes future appointments and future orders which are active, pending or scheduled. Future Appointments This section includes appointments that were scheduled to occur 6 months from the date of the Encounter, up to a maximum of 20 appointments. The data comes from all [place] treatment facilities. Appointment Date/Time Appointment Type Appointme nt Facility Name May 19, 2025 12:15 PM AMBULATORY - MEDICINE [facility] May 28, 2025 10:00 AM AMBULATORY - REHAB MEDICIN E [facility] May 30, 2025 10:00 AM AMBULATORY - MEDICINE [facility] Jun 12, 2025 09:30 AM AMBULATORY - MEDICINE [facility] Aug 20, 2025 09:15 AM AMBULATORY - MEDICINE [facility] Sep 18, 2025 11:00 AM AMBULATORY - MEDICINE [facility] Sep 26, 2025 10:00 AM AMBULATORY - MEDICINE [facility] Oct 09, 2025 10:00 AM AMBULATORY - MEDICINE [facility] Oct 23, 2025 09:15 AM AMBULATORY - MEDICINE [facility] Oct 23, 2025 09:30 AM AMBULATORY - MEDICINE [facility] Active, Pending, and Scheduled Orders This section includes a listing of several types of active, pending, and scheduled orders, including clinic medications orders, diagnostic test orders, procedure orders and consult orders; where the start date of the order is 45 days before the date of the Encounter or 45 days after the date of theEncounter. The data comes from all [facility] facilities. Test Date/Time Test Type Test Details Facility Name Mar 27, 2025 02:19 PM Consult Order [facility]M [facility] OUTPAT[facility] May 12, 2025 12:00 AM Laboratory - Chemi stry Order TACROLIMUS (STL-PB) BLOOD [facility] May 12, 2025 12:00 AM Laboratory - Chemi stry Order URINALYSIS (L-PB) URINE - CLEAN CATCH [facility] May 12, 2025 12:00 AM Laboratory - Chemi stry Order RENAL PANEL GREEN LI/HEP BLD/PLAS PLASMA [facility] May 12, 2025 12:00 AM Laboratory - Chemi stry Order CBC BLOOD [facility] Lab Results: +/- 30 days of the encounter This section includes the Chemistry and Hematology Lab Results on record with [place] for the patient. Radiology Reports and Pathology Reports are provided separately, in subsequent sections. Lab Results This section contains the Chemistry/Hematology Results that were resulted 30 days before or 30 daysafter the date of the Encounter. Date/Time Source Result Type Result - Unit Interpretation Reference Range Specimen Type Comment Apr 08, 2025 08:17 AM [facility] TACROLIMUS (STL-PB) BLOOD Specimen Type: BLOOD No comment entered. Ordering Provider: FRANCISCO DAILY Report Released Date/Time: Sep 27, 2024 12:13 PM Reporting Lab: [address] [address] Performing Lab: [address] [address] TACROLIMUS (STL-PB) 3.7 ng/mL Apr 08, 2025 08:17 AM [facility] RENAL PANEL PLASMA Specimen Type: PLASM A Comment: No hemolysis noted. Ordering Provider: FRANCISCO DAILY Report Released Date/Time: Sep 27, 2024 12:13 PM Reporting Lab: [address] [address] Performing Lab: [address] [address] CREATININE 1.63 mg/dL H 0.7-1.3 UREA NITROGEN 31.9 mg/dL H 9.0-25.0 GLUCOSE 143 mg/dL H 72-99 SODIUM 136 meq/L 136-145 POTASSIUM 4.5 meq/L 3.5-5 CHLORIDE 110 meq/L H 98-107 CARBON DIOXIDE 20 meq/L L 22-31 CALCIUM 9.0 mg/dL 8.4-10.4 PHOSPHOROUS 4.2 mg/dL 2.3-4.7 ALBUMIN 3.6 g/dL 3.4-5 EGFR (CKD-EPI 2020) 44.8 >60 Apr 08, 2025 08:17 AM [facility] URINALYSIS (STL-PB) URINE Specimen Type: URIN E No comment entered. Ordering Provider: FRANCISCO DAILY Report Released Date/Time: Sep 27, 2024 12:13 PM Reporting Lab: [address] [phone] Performing Lab: [address] [address] URINE COLOR Light-Yellow Yellow U.BILIRUBIN Negative mg/dL Negative U.PH 6.0 5.0-8.0 APPEARANCE Clear Clear U.NITRITE Negative mg/dL Negative URN.GLUCOSE 1000 mg/dL H Negative URN.PROTEIN Negative mg/dL URN.UROBILINOGEN Normal mg/dL Normal URN.BLOOD Negative mg/dL Negative-Trace URN.KETONES Negative mg/dL Negative-Trac e URN.LEUK.EST. Negative mg/dL Negative-Tr malu URN.SPECIFIC GRAVITY 1.015 Apr 08, 2025 08:17 AM [facility] CBC BLOOD Specimen Type: BLOOD No comment entered. Ordering Provider: FRANCISCO DAILY Report Released Date/Time: Sep 27, 2024 12:13 PM Reporting Lab: [facility] [address] [facility] [address] Performing Lab: [facility] [address] [facility] [phone] WBC 5.3 10*3/uL 3.6-11.2 RBC 4.30 10*6/uL [...] 0.60 BASOPHILS, ABSOLUTE 0.10 10*3/uL 0.00-0. 20 Social History: Smoking Status (Most current) and Tobacco Use (All prior to encounter date) This section includes the most current, and the historical, smoking and tobacco- related health factors from the [facility] where the Encounter took place. Current Smoking Status This section includes the most current smoking, or tobacco-related health factor, from the [place] facility where the Encounter took place. Date/Time Current Smoking Status Comment Jg crowe Nov 22, 2021 10:00 AM VA-TOBACCO NEVER USED [facility] Tobacco Use History This section includes a history of the smoking, or tobacco-related health factors, that were collected on or before the date of the Encounter. The data comes from the [place] facility where the Encounter took place. Date/Time Smoking Status/Tobacco Use Comment F acility Sep 26, 2018 08:30 AM VA-TOBACCO NEVER [facility]ED [facility] Jun 25, 2018 10:53 AM VA-TOBACCO NEVER [facility]ED [facility] Dec 22, 2017 10:58 AM VA-TOBACCO NEVER [facility]ED [facility] Jun 28, 2017 11:04 AM LIFETIME NON-USER OF TOBACCO [facility] Jun 21, 2017 09:54 AM LIFETIME NON-USER OF TOBAC [facility] non [facility] May 10, 2017 09:43 AM LIFETIME NON-USER OF TOBAC [facility] Feb 17, 2017 08:27 AM LIFETIME NON-USER OF TOBACCO [facility] January 14, 2016 02:12 PM LIFETIME NON-USER OF TOBACCO [facility] Encounter Notes: All associated encounter notes This section contains the clinical notes associated to the Encounter. Date/Time Encounter Note(s) Provider Source Apr 22, 2025 11:13 AM PSYCHOLOGY OUTPATI ENT NOTE: LOCAL TITLE: PRIMARY CARE PSYCHOLOGY NOTE ST STANDARD TITLE: PSYCHOLOGY OUTPATIENT NOTE DATE OF NOTE: APR 22, 2025@11:13 ENTRY DATE: APR 22, 2025@11:13:23 AUTHOR: ANGELI BECERRIL EXP COSIGNER: URGENCY: STATUS: COMPLETED NAME: DAT GANNON DATE OF : Feb TIME SPENT WITH PATIENT: 30 minutes DIAGNOSIS BEING TREATED: Depressive D/O d/t Another Medical Condition, Relationship Distress with Spouse CPT Code: 85276 NATURE OF ENCOUNTER: follow up visit SESSION FORMAT: [X] [id number] [ ] Video Telehealth [ ]Phone Confirmed Caroline's location and phone number for virtual appointment. [ ]Yes [X]N/A SESSION NUMBER: [id number] ( seen for additional sessions than traditional course of tx within [facility] d/t ongoing changes in medical circumstances) RELEVANT HISTORICAL DEVELOPMENTS SINCE LAST CONTACT: - signed up for cardiac rehab through [facility] s/t being by cardiology to participate (notes is paying out of pocket) INTERVENTION/TREATMENT PROVIDED [X] [place] [facility] [X] Shared [...] Mood/depressive and anxiety sxs remain elevated, but remain stable. Denies any significant change in external stressors (i.e., medical conditions, financial concerns s/t moving into new home, marital discord), but notes is hopeful that being able to participate in cardiac rehab will help him feel better physically and psychologically. Continued assisting with processing thoughts and feelings r/t stressors, particularly medical issues and limitations on physical activities imposed by such. Continued providing with empathetic and supportive listening and appropriate validation. Continued assisting with challenging identified distorted cognitions. Reviewed mood and stress/anxiety management strategies. Reviewed importance of self-care and reviewed strategies to assist with engagement, commending on decision to engage in cardiac rehab. - Discussed recent sleep experience in detail. Notes has been sleeping in recliner instead of bed and endorses decreased use of CPAP. Discussed in more detail. Provided with empathetic and supportive listening and appropriate validation. Discussed strategies to assist with increasing tolerance of CPAP mask. Reviewed sleep hygiene guidelines. - Continued discussing discord within marital relationship. Continued discussing move to new home and 's difficulty adjusting to such. Caroline continues to endorse regret r/t decision to move, noting ongoing financial stress s/t the decision. Continued providing with empathetic and supportive listening [...] conditions ROS: Sleep: Ongoing Initial and Middle Insomnia Interest: remains decreased Guilt: Continues to endorse [...] PROGRESS TOWARDS GOAL: continues to experience significant anergia and concerns r/t muscle atrophy; has signed up for cardiac rehab and is hopeful that this will help improve muscle strength and balance RESPONSE TO INTERVENTIONS: Veterans participation/engagement: [X]The Caroline participated actively in the current interventions. [ ]Other: The continues to consent to the current plan of care: Yes Comments: RISK ASSESSMENT: [X] NO CHANGES IN RISK FACTORS Related to Suicide or Homicide endorsed during today's encounter. Caroline did not report any current suicidal/homicidal ideation, plan, or intent. did not appear to be at imminent risk for suicide or homicide at this time and is considered sustainable at the current level of care. -CLINICAL JUDGMENT AND DISPOSITION: [X] In consideration of relevant risk and protective factors, the Caroline did NOT appear to be at imminent [...] care. expressed agreement with therapy tasks and [id number] plan. RTC placed for f/u appt. /es/ ANGELI BECERRIL, PH.D. Clinical Psychologist; PCMTN Signed: 04/22/2025 12:01 ANGELI BECERRIL [facility]
[2025-05-06] VITALS (38 sets, daily range): BP systolic 110–141; BP diastolic 34–123; PULSE 60–88; RESP 10–22; TEMP 36.4; O2SAT 94–100
--- NOTE | ~2025-05-06 | XR_ITS ---
EXAMINATION: XR chest 1V portable DATE: 05/06/2025 19:40 INDICATION: Arrhythmia TECHNIQUE: frontal view of the chest was obtained. COMPARISON: None FINDINGS: Calcified nodule at the left midlung zone consistent with old granulomatous disease. Mild linear discoid atelectasis/scarring at the right lung base. No pulmonary edema, pleural effusion or pneumothorax. The cardiomediastinal silhouette is normal. Dual lead pacemaker seen with leads projecting over the expected locations of the right atrium and right ventricle. Subtle mild kink in the right ventricular lead near the level of the tricuspid valve plane. IMPRESSION: 1. Mild linear discoid atelectasis/scarring at the right lung base. No acute cardiopulmonary disease. 2. Subtle mild kink in the course of the ventricular lead of a dual-lead cardiac pacemaker of indeterminate significance. Reviewed, dictated and finalized at location A. IMPRESSION: 1. Mild linear discoid atelectasis/scarring at the right lung base. No acute ca rdiopulmonary disease. 2. Subtle mild kink in the course of the ventricular lead of a dual-lead cardia c pacemaker of indeterminate significance.
--- OUTSIDE RECORDS SUMMARY | 2025-05-06 11:50 | XMS_ITS | Continuity of Care Document ---
Author Name [facility] Organization [facility] Care Team Providers Care Telecommunications Sales Representative Name Role Phone [facility] Unavailable Unavailable Problems Combined list of problems from Department of Defense and [facility] Affairs facilities. It does not include entries that were removed or entered in error. Problem Status Onset Date Problem Type Date of Resolution Comments Source Acidosis, metabolic NEC (ICD-9-CM 276.2) Active Condition [facility] Acute osteomyelitis of foot Active Condition [facility] Anemia in Chronic Kidney Disease (ICD-9-CM 285.21) Active Condition [facility] Anticoagulant effect Active Condition [facility] Chronotropic incompetence Active Condition [facility] Coronary artery disease Active Condition [facility] Diabetic nephropathy (SNOMED CT 871268317) Active Condition [facility] Erectile dysfunction due to diabetes mellitus (SNOMED CT 594619549) Active Condition [facility] GERD * (ICD-9-CM 530.81) Active Condition [facility] History of - kidney recipient (SNOMED CT 305521920) Active Condition Apr 06, 2012 Entered By: LINNETTE FINLEY Comment: 03-29-12 [facility] History of venous thrombosis Active Condition [facility] HTN - Hypertension (SNOMED CT 82793237) Active Condition [facility] Hypertensive chronic kidney disease, unspecified, with chronic kidney disease St Active Condition [facility] Insulin pump present Active Condition [facility] Lack of exercise Active Condition [facility] Osteopenia Active Condition [facility] Other Fluid Overload (ICD-9-CM 276.69) Active Condition [facility] Patent foramen ovale Active Condition [facility] Permanent cardiac pacemaker Active Condition [facility] Postthrombotic syndrome Active Condition [facility] Sinus bradycardia Active Condition [facility] Sleep apnea Active Condition [facility] Therapeutic drug effect Active Condition [facility] Ulcer of lower Limb, unspecified (ICD-9-CM 707.10) Active Condition [facility] Chronic kidney disease stage 3 Inactive Condition 04/06/2012 [facility] Chronic Kidney Disease, Stage III (Moderate) (ICD-9-CM 585.3) Inactive Condition 04/06/2012 [facility] Chronic Kidney Disease, Stage IV (Severe) (ICD-9-CM 585.4) Inactive Condition 04/06/2012 [facility] Decubitus Ulcer * (ICD-9-CM 707.0) Inactive Condition 04/06/2012 [facility] Fluid Overload (ICD-9-CM 276.6) Inactive Condition 04/06/2012 [facility] Diagnosis: ICD-10-CM F06.31 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 Active Diagnosis [facility] Diagnosis: ICD-10-CM I49.5 Sick sinus syndrome Active Diagnosis [facility] Diagnosis: ICD-10-CM Z96.41 Presence of insulin pump (external) (internal) Active Diagnosis [facility] Diagnosis: ICD-10-CM Z02.9 Encounter for administrative examinations, unspecified Active Diagnosis [facility] Diagnosis: ICD-10-CM R00.1 Bradycardia, unspecified Active Diagnosis [facility] Diagnosis: ICD-10-CM 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 Active Diagnosis [facility] Diagnosis: ICD-10-CM Z48.22 Encounter for aftercare following kidney transplant Active Diagnosis [facility] Diagnosis: ICD-10-CM G47.33 Obstructive sleep apnea (adult) (pediatric) Active Diagnosis [facility] Diagnosis: ICD-10-CM I27.20 Pulmonary hypertension, unspecified Active Diagnosis [facility] Diagnosis: ICD-10-CM E11.9 Type 2 diabetes mellitus without complications Active Diagnosis [facility] Diagnosis: ICD-10-CM N18.32 Chronic kidney disease, stage 3b Active Diagnosis [facility] Diagnosis: ICD-10-CM S20.20XA Contusion of thorax, unspecified, initial encounter Active Diagnosis [facility] Diagnosis: ICD-10-CM Q21.12 Patent foramen ovale Active Diagnosis [facility] Diagnosis: ICD-10-CM E10.8 Type 1 diabetes mellitus with unspecified complications Active Diagnosis [facility] Diagnosis: ICD-10-CM R06.00 Dyspnea, unspecified Active Diagnosis [facility] Diagnosis: ICD-10-CM I89.0 Lymphedema, not elsewhere classified Active Diagnosis [facility] Diagnosis: ICD-10-CM E08.22 Diabetes due to undrl cond w diabetic chronic kidney disease Active Diagnosis [facility] Diagnosis: ICD-10-CM 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 Active Diagnosis [facility] Diagnosis: ICD-10-CM I25.118 Athscl heart disease of [place] cor art w oth ang pctrs Active Diagnosis [facility] Diagnosis: ICD-10-CM I48.0 Paroxysmal atrial fibrillation Active Diagnosis [facility] Diagnosis: ICD-10-CM L57.0 Actinic keratosis Active Diagnosis [facility] Diagnosis: ICD-10-CM S81.809D Unspecified open wound, unspecified lower leg, subs encntr Active Diagnosis [facility] Diagnosis: ICD-10-CM Z86.718 Personal history of other venous thrombosis and embolism Active Diagnosis [facility] Diagnosis: ICD-10-CM I25.810 Atherosclerosis of CABG w/o angina pectoris Active Diagnosis [facility] Diagnosis: ICD-10-CM Z13.9 Encounter for screening, unspecified Active Diagnosis [facility] Diagnosis: ICD-10-CM Z13.5 Encounter for screening for eye and ear disorders Active Diagnosis [facility] Diagnosis: ICD-10-CM Z01.818 Encounter for other preprocedural examination Active Diagnosis [facility] Diagnosis: ICD-10-CM R19.7 Diarrhea, unspecified Active Diagnosis [facility] Diagnosis: ICD-10-CM R90.81 Abnormal echoencephalogram Active Diagnosis [facility] Diagnosis: ICD-10-CM G47.39 Other sleep apnea Active Diagnosis [facility] Diagnosis: ICD-10-CM S91.309D Unspecified open wound, unspecified foot, subs encntr Active Diagnosis [facility] Diagnosis: ICD-10-CM Z71.9 Counseling, unspecified Active Diagnosis [facility] Diagnosis: ICD-10-CM S91.106D Unsp opn wnd unsp lesser toe(s) w/o damage to nail, subs Active Diagnosis [facility] Diagnosis: ICD-10-CM Z46.89 Encounter for fitting and adjustment of oth devices Active Diagnosis [facility] Diagnosis: ICD-10-CM R60.0 Localized edema Active Diagnosis [facility] Diagnosis: ICD-10-CM I83.11 Varicose veins of right lower extremity with inflammation Active Diagnosis [facility] Medications Combined list of outpatient medications from Department of Defense and [facility] facilities.Medications provided include 1) outpatient medications from the last 15 months, and 2) patient-reported medications. Medication Details Route Status Patient Instructions Prescription Expires Prescription Number Last Dispense Date Ordering Provider Order Date Order Qty Source AMLODIPINE BESYLATE 10MG TAB TAKE ONE TABLET BY MOUTH ONCE A DAY FOR HIGH BLOOD PRESSURE ORAL ACTIVE 09/21/2025 [id number] 5 BINTA BURNETT 2024 90 [facility] AMLODIPINE BESYLATE 10MG TAB TAKE ONE TABLET BY MOUTH ONCE A DAY FOR HIGH BLOOD PRESSURE ORAL DISCONT INUED 08/28/2024 [id number] RAMU GABRIEL 2022 90 [facility] AMYLASE 120,000UNIT /LIPASE 24,000UNIT/ PROTEASE 76,000UNIT CAP,EC TAKE 2 CAPSULES BY MOUTH THREE TIMES A DAY BEFORE MEALS TAKE WITH FOOD DIRECTED . ORAL ACTIVE 04/11/2026 [id number] LIZA SANDS 2024 600 [facility] APIXABAN 5MG TAB TAKE ONE TABLET BY MOUTH TWICE A DAY FOR ANTICOAG ULATION ORAL ACTIVE 08/22/2025 [id number] ROBE CARDONA 2023 180 [facility] APIXABAN 5MG TAB TAKE ONE TABLET BY MOUTH TWICE A DAY FOR ANTICOAG ULATION ORAL DISCONT INUED 08/16/2024 [id number] MARY PANDYA 2023 180 [facility] ATORVASTATI N CA 20MG TAB TAKE ONE-HALF TABLET BY MOUTH EVERY EVENING FOR HIGH CHOLESTE ROL REPLAC ES SIMVASTA TIN ORAL ACTIVE 08/02/2025 [id number] WES MATTHEWS D 2023 45 [facility] ATORVASTATI N CA 20MG TAB TAKE ONE-HALF TABLET BY MOUTH EVERY EVENING FOR HIGH CHOLESTE ROL REPLAC ES SIMVASTA TIN ORAL 06/27/2024 [id number] RAMU GABRIEL 2023 45 [facility] BISACODYL 5MG TAB,EC TAKE TWO TABLETS BY MOUTH ONE TIME ORAL ACTIVE 05/10/2025 [id number] LIZA SANDS 2024 2 [facility] BISACODYL 5MG TAB,EC TAKE TWO TABLETS BY MOUTH ONE TIME TAKE BISACODY L TABLETS AT 4PM ON AFTERNOO N PRIOR TO TEST. CALL WITH ANY QUESTION S ABOUT THESE INSTRUCT IONS. MAIL TAKE BISACODY L TABLETS AT 4PM ON AFTERNOO N PRIOR TO TEST. CALL [phone] WITH ANY QUESTION S ABOUT THESE INSTRUCT IONS. MAIL ORAL 05/17/2024 [id number] LIZA SANDS 2023 2 [facility] BUMETANIDE 1MG TAB TAKE ONE TABLET BY MOUTH EVERY MORNING FOR FLUID RETENTIO N (EDEMA) REPLAC ES FUROSEMI DE ORAL DISCONT INUED (EDIT) 03/30/2025 [id number] RAMU GABRIEL 2023 90 [facility] BUMETANIDE 1MG TAB TAKE ONE TABLET BY MOUTH EVERY OTHER DAY FOR FLUID RETENTIO N (EDEMA) REPLAC ES FUROSEMI DE ORAL 04/19/2025 [id number] RAMU GABRIEL 2023 45 [facility] COLESTIPOL HCL 1GM TAB TAKE ONE TABLET BY MOUTH EVERY MORNING AND EVENING (OTHER MEDICATI ONS SHOULD BE TAKEN 1 HOUR BEFORE OR 4 HOURS AFTER COLESTIP OL) ORAL 04/02/2025 [id number] LIZA SANDS 2023 180 [facility] DOXYCYCLINE HYCLATE 100MG TAB TAKE ONE TABLET BY MOUTH TWICE A DAY FOR SKIN OR SOFT TISSUE INFECTIO N TAKE UNTIL FINISHED . AVOID SUN EXPOSURE WHILE TAKING. ORAL 01/26/2025 [id number] 5 FERNANDO NOE 2024 14 [facility] FERROUS SO4 325MG TAB TAKE ONE TABLET BY MOUTH ONCE A DAY FOR IRON SUPPLEME NTATION. ORAL 10/11/2024 [id number] 4 BINTA BURNETT 2023 100 [facility] FUROSEMIDE 20MG TAB TAKE ONE TABLET BY MOUTH EVERY OTHER DAY FOR FLUID RETENTIO N (EDEMA) ORAL DISCONT INUED 03/16/2025 [id number] CARL DAILYUJ A 2023 45 [facility] GLUCAGON 1MG/AURA INJ,EMERGEN CY KIT INJECT 1MG/1VIA L INTRAMUS CULARLY NEEDED FOR LOW BLOOD SUGAR INTRAM USCULA R 07/02/2024 [id number] BINTA BURNETT 2023 2 [facility] GLUCAGON 3MG INHL,NASAL, 2 PK SPRAY 1 SPRAY (3MG) IN ONE NOSTRIL ONLY ONE-TIME NEEDED FOR LOW BLOOD SUGAR AFTER FIRST DOSE, SEEK MEDICAL ATTENTIO N IMMEDIAT BARBARA. MAY GIVE ADDITION AL DOSE IF NO RESPONSE AFTER 15 MINUTES. DO NOT ADMINIST ER MORE THAN 2 SEQUENTI AL DOSES. NASAL SUSPEND ED 05/06/2026 [id number] ALMA CHAN E 2024 2 [facility] [place] Estrada GLUCOSE 4GM TAB,CHEW CHEW AND SWALLOW FOUR TABLETS BY MOUTH NEEDED FOR LOW BLOOD SUGAR REPEAT DOSE IF HYPOGLYC EMIA CONTINUE S 15 MINUTES AFTER THE FIRST DOSE. ORAL ACTIVE 06/14/2025 [id number] 5 ALMA CHAN E 2023 50 [facility] [place] Estrada HYDROCORTIS ONE 2.5% CREAM,RTL W/APPLICATO R APPLY 1 APPLICAT ORFUL RECTALLY ONCE A DAY FOR HEMORRHO IDS (FOR RECTAL USE) RECTAL 08/07/2024 [id number] LIZA SANDS 2023 30 [facility] [place] N INSULIN,ASP ART,HUMAN 100 UNT/ML INJ INJECT BASAL/EMA ADRIANNA INSULIN UNDER THE SKIN CONTINUO US VIA PUMP FOR DIABETES - INFUSING THRU PATIENT' S ATTACHED INSULIN PUMP SUBCUT ANEOUS SUSPEND ED 05/06/2026 [id number] ALMA CHAN E 2024 10 [facility] [place] Estrada INSULIN,ASP ART,HUMAN 100 UNT/ML INJ INJECT BASAL/EMA ADRIANNA INSULIN UNDER THE SKIN CONTINUO US VIA PUMP FOR DIABETES - INFUSING THRU PATIENT' S ATTACHED INSULIN PUMP SUBCUT ANEOUS 07/11/2024 [id number] ALMA CHAN 2022 10 [facility] LIDOCAINE 5% PATCH APPLY 1 PATCH TO SKIN SITE ONCE A DAY NEEDED FOR LOCAL ANESTHES IA APPLY PATCH AND PRESS FIRMLY FOR 10-15 SECONDS. KEEP ON FOR 12 HOURS THEN REMOVE PATCH FOR 12 HOURS. TRANSD ERMAL 01/26/2025 [id number] FERNANDO NOE 2024 30 [facility] LISINOPRIL 40MG TAB TAKE ONE TABLET BY MOUTH ONCE A DAY FOR HEART OR BLOOD PRESSURE ORAL ACTIVE 10/11/2025 [id number] 5 BINTA BURNETT 2024 90 [facility] LISINOPRIL 40MG TAB TAKE ONE TABLET BY MOUTH ONCE A DAY FOR HEART OR BLOOD PRESSURE ORAL DISCONT INUED 10/11/2024 [id number] 4 BINTA BURNETT 2023 90 [facility] MAGNESIUM CITRATE LIQUID,ORAL TAKE 1 BOTTLE BY MOUTH ONE-TIME ORAL ACTIVE 05/10/2025 [id number] LIZA SANDS 2024 1 [facility] METOPROLOL TARTRATE 100MG TAB TAKE ONE TABLET BY MOUTH TWICE A DAY FOR HEART/BL OOD PRESSURE . TAKE WITH OR IMMEDIAT BARBARA FOLLOWIN G FOOD. NEW DOSE ORAL ACTIVE 10/11/2025 [id number] 5 BINTA BURNETT 2024 180 [facility] METOPROLOL TARTRATE 100MG TAB TAKE ONE TABLET BY MOUTH TWICE A DAY FOR HEART/BL OOD PRESSURE . TAKE WITH OR IMMEDIAT BARBARA FOLLOWIN G FOOD. NEW DOSE ORAL DISCONT INUED 10/11/2024 [id number] 4 BINTA BURNETT 2023 180 [facility] MUPIROCIN 2% OINT,TOP APPLY LIGHTLY TO AFFECTED AREA(S) TWICE A DAY FOR BACTERIA L INFECTIO N EXTERNAL USE ONLY. TOPICA L 05/18/2024 [id number] BYRON,IN GRID D 2023 22 [facility] OMEPRAZOLE 40MG CAP,EC TAKE ONE CAPSULE BY MOUTH EVERY MORNING BEFORE A MEAL TO LOWER STOMACH ACID. TAKE 30 MINUTES PRIOR TO FOOD. ORAL ACTIVE 05/11/2025 [id number] 5 GARY DAWKINS 2023 90 [facility] OMEPRAZOLE 40MG CAP,EC TAKE ONE CAPSULE BY MOUTH EVERY MORNING BEFORE A MEAL TO LOWER STOMACH ACID. TAKE 30 MINUTES PRIOR TO FOOD. ORAL DISCONT INUED 05/12/2024 [id number] 4 BINTA BURNETT 2022 90 [facility] PEG-3350/EL ECTROLYTES PWDR MIX AND DRINK CONTENTS OF BOTTLE BY MOUTH DIRECTED ORAL ACTIVE 05/10/2025 [id number] LIZA SANDS 2024 1 [facility] PEG-3350/EL ECTROLYTES PWDR MIX AND DRINK CONTENTS OF BOTTLE BY MOUTH DIRECTED (THE DAY BEFORE YOUR TEST ONLY DRINK CLEAR LIQUIDS- NO SOLID FOOD! TAKE THE BISACODY L TABLETS AT 4PM AND MIX THE GOLYTELY WITH WATER AND REFRIGER ATE. AT 7PM DRINK HALF OF THE GOLYTELY . REFRIGER ATE OVERNIGH T. COMPLETE GOLYTELY 3 HRS BEFORE LEAVING HOME FOR TEST. READ YOUR INSTRUCT IONS!) (THE DAY BEFORE YOUR TEST ONLY DRINK CLEAR LIQUIDS- NO SOLID FOOD! TAKE THE BISACODY L TABLETS AT 4PM AND MIX THE GOLYTELY WITH WATER AND REFRIGER ATE. AT 7PM DRINK HALF OF THE GOLYTELY . REFRIGER ATE OVERNIGH T. COMPLETE GOLYTELY 3 HRS BEFORE LEAVING HOME FOR TEST. READ YOUR INSTRUCT IONS!) ORAL 05/17/2024 [id number] LIZA SANDS 2023 1 [facility] PREDNISONE 5MG TAB TAKE ONE TABLET BY MOUTH EVERY MORNING WITH FOOD ORAL ACTIVE 05/11/2025 [id number] GARY DAWKINS 2023 90 [facility] PREDNISONE 5MG TAB TAKE ONE TABLET BY MOUTH EVERY MORNING WITH FOOD ORAL DISCONT INUED 05/12/2024 [id number] BINTA BURNETT 2022 90 [facility] SIMETHICONE 80MG TAB,CHEW CHEW AND SWALLOW FOUR TABLETS BY MOUTH DIRECTED ORAL ACTIVE 05/10/2025 [id number] LIZA SANDS 2024 8 [facility] SIMETHICONE 80MG TAB,CHEW CHEW AND SWALLOW FOUR TABLETS BY MOUTH DIRECTED FOR GAS DISCOMFO RT FOR TWO DOSES BEFORE GI PROCEDUR E ORAL 05/17/2024 [id number] LIZA SANDS 2023 8 [facility] SIMVASTATIN 20MG TAB TAKE ONE-HALF TABLET BY MOUTH EVERY EVENING TO LOWER CHOLESTE ROL (REPORT ANY MUSCLE PAIN OR WEAKNESS ) ORAL DISCONT INUED 05/12/2024 [id number] BINTA BURNETT 2022 45 [facility] SODIUM BICARBONATE 650MG TAB TAKE TWO TABLETS BY MOUTH TWICE A DAY ORAL ACTIVE 07/13/2025 [id number] 5 BINTA BURNETT 2023 360 [facility] TACROLIMUS 1MG CAP TAKE ONE CAPSULE BY MOUTH TWICE A DAY TO PREVENT TRANSPLA NT REJECTIO N ORAL ACTIVE 04/11/2026 [id number] HONORIO DAILY 2024 180 [facility] TACROLIMUS 1MG CAP TAKE TWO CAPSULES BY MOUTH EVERY MORNING AND TAKE ONE CAPSULE EVERY EVENING TO PREVENT TRANSPLA NT REJECTIO N ORAL DISCONT INUED (EDIT) 07/06/2025 [id number] BINTA BURNETT 2023 270 [facility] TACROLIMUS 1MG CAP TAKE TWO CAPSULES BY MOUTH EVERY MORNING AND TAKE ONE CAPSULE EVERY EVENING TO PREVENT TRANSPLA NT REJECTIO N ORAL DISCONT INUED 07/07/2024 [id number] 4 BINTA BURNETT 2022 270 [facility] TAMSULOSIN HCL 0.4MG CAP TAKE TWO CAPSULES BY MOUTH EVERY EVENING APPROXIM ATELY 30 MINUTES AFTER THE SAME MEAL EACH DAY (FOR PROSTATE ) ORAL ACTIVE 01/21/2026 [id number] 5 BINTA BURNETT 2024 180 [facility] TAMSULOSIN HCL 0.4MG CAP TAKE TWO CAPSULES BY MOUTH EVERY EVENING APPROXIM ATELY 30 MINUTES AFTER THE SAME MEAL EACH DAY (FOR PROSTATE ) ORAL DISCONT INUED 03/13/2025 [id number] HONORIO DAILY 2023 180 [facility] Allergies, Adverse Reactions, Alerts Combined list of allergies from Department of Defense and Veterans Affairs facilities. It does not include entries that were removed or entered in error. Substance Category Reaction Severity Reaction type Status Date Reported Comments Source MORPHINE Propensity to adverse reactions to drug (finding) active 05/10/2017 [facility] Immunizations Combined list of available immunizations from the Department of Defense and Veterans Affairs facilities. Immunization Series Date Given Administered By Site Reaction Lot Number CVX Code Drug Equipment Associate Status Comments Source INFLUENZA, HIGH-DOSE, TRIVALENT, PF 2023 SUSY SHETH LEFT DELTO ID [id number] 135 complet ed [facility] COVID-19 (PFIZER), MRNA, LNP-S, PF, ERNESTO-SUCROSE, 30 MCG/0.3 ML (AGES 12+ YEARS) 2023 SUSY SHETH LEFT DELTO ID [id number] 309 complet ed [facility] RSV, RECOMBINANT, PROTEIN SUBUNIT RSVPREF, ADJUVANT RECONSTITUTED , 0.5 ML, PF 1 2022 303 complet ed HISTORICA L INFORMATI ON - FROM OTHER [facility] COVID-19 (PFIZER), MRNA, LNP-S, PF, ERNESTO-SUCROSE, 30 MCG/0.3 ML (AGES 12+ YEARS) 3 2022 309 complet ed HISTORICA L INFORMATI ON - FROM OTHER [facility] INFLUENZA, HIGH-DOSE, QUADRIVALENT 2022 CORINNE LOWERY K LEFT DELTO ID [id number] 197 complet ed [facility] PNEUMOCOCCAL POLYSACCHARID E PPV23 2022 EAN LAINEZ AH LEFT DELTO ID [id number] 33 complet ed [facility] INFLUENZA, HIGH-DOSE, QUADRIVALENT 7 2021 197 complet ed HISTORICA L INFORMATI ON - FROM OTHER [facility] N INFLUENZA, UNSPECIFIED FORMULATION 6 2021 88 complet ed HISTORICA L INFORMATI ON - FROM OTHER [facility] N COVID-19, MRNA, LNP-S, BIVALENT BOOSTER, PF, 50 MCG/0.5 ML OR 25MCG/0.25 ML DOSE 1 2021 229 complet ed MOD; [id number]; 3 [facility] ZOSTER RECOMBINANT 2 2021 NONE 187 complet ed [facility] ZOSTER RECOMBINANT 1 2021 NONE 187 complet ed [facility] COVID-19 (PFIZER), MRNA, LNP-S, PF, 30 MCG/0.3 ML DOSE, ERNESTO-SUCROSE (AGES 12+ YEARS) 1 2021 217 complet ed HISTORICA L INFORMATI ON - FROM OTHER [facility] IN[facility], HIGH-DOSE, QUADRIVALENT 5 2020 197 complet ed HISTORICA L INFORMATI ON - FROM OTHER [facility] INFLUENZA, UNSPECIFIED FORMULATION 2020 88 complet ed [facility] COVID-19 ([employer]), MRNA, LNP-S, PF, 30 MCG/0.3 ML DOSE 3 2020 208 complet ed [facility] COVID-19 ([facility]), MRNA, LNP-S, PF, 30 MCG/0.3 ML DOSE 1 2020 208 complet ed HISTORICA L INFORMATI ON - FROM OTHER REGISTRY, [facility] COVID-19 ([facility]), MRNA, LNP-S, PF, 30 MCG/0.3 ML DOSE 2 2020 208 complet ed PFR; [id number]; 1 [facility] COVID-19 ([facility]), MRNA, LNP-S, PF, 30 MCG/0.3 ML DOSE 1 2020 208 complet ed PFR; [id number]; 1 [facility] INFLUENZA, HIGH-DOSE, QUADRIVALENT 2019 197 complet ed [facility] INFLUENZA, INJECTABLE, QUADRIVALENT, PRESERVATIVE FREE 2018 NONE 150 complet ed Completed Series, [facility] TDAP 2018 115 complet ed Left Deltoid [facility] INFLUENZA, UNSPECIFIED FORMULATION 2017 88 complet ed [facility] PNEUMOCOCCAL POLYSACCHARID E PPV23 2017 33 complet ed [facility] INFLUENZA, UNSPECIFIED FORMULATION 2016 88 complet ed [facility] INFLUENZA, SEASONAL, INJECTABLE 2016 141 complet ed 02, Partner: Abbey . Administe red by: Abbey Clinician (NPI=Not Provided) . Partner 7 Lot#: [id number] Mfr: [facility] INFLUENZA, SEASONAL, INJECTABLE 4 2016 141 complet ed HISTORICA L INFORMATI ON - FROM OTHER REGISTRY, [facility] INFLUENZA, SEASONAL, INJECTABLE, PRESERVATIVE FREE 2015 140 complet ed 02, Partner: Abbey . Administe red by: Abbey Clinician (NPI=Not Provided) . Partner 7 Lot#: [id number] Mfr: [facility] DIVISIO N INFLUENZA, SEASONAL, INJECTABLE, PRESERVATIVE FREE 3 2015 140 complet ed HISTORICA L INFORMATI ON - FROM OTHER REGISTRY, [facility] INFLUENZA, UNSPECIFIED FORMULATION 2015 88 complet ed [facility] INFLUENZA, SEASONAL, INJECTABLE, PRESERVATIVE FREE 2014 140 complet ed 02, Partner: Abbey . Administe red by: Abbey Clinician (NPI=Not Provided) . Partner 7 Lot#: [id number] Mfr: [employer] [facility] INFLUENZA, SEASONAL, INJECTABLE, PRESERVATIVE FREE 2 2014 140 complet ed HISTORICA L INFORMATI ON - FROM OTHER REGISTRY, [facility] INFLUENZA, UNSPECIFIED FORMULATION 2014 88 complet ed [facility] PNEUMOCOCCAL CONJUGATE PCV 13 2014 133 complet ed transplan t doctor [facility] INFLUENZA, UNSPECIFIED FORMULATION 1 2013 88 complet ed HISTORICA L INFORMATI ON - FROM OTHER REGISTRY, [facility] INFLUENZA, UNSPECIFIED FORMULATION 2012 88 complet ed [facility] INFLU[facility], UNSPECIFIED FORMULATION 2011 88 complet ed [facility] PNEUMOCOCCAL POLYSACCHARID E [id number] 2011 33 complet ed no problems [facility]FLU[facility], UNSPECIFIED FORMULATION 2010 88 complet ed [facility] INFLUENZA, UNSPECIFIED FORMULATION 2009 88 complet ed [facility] [facility]INE [facility] N INFLUENZA, UNSPECIFIED FORMULATION 2008 88 complet ed [facility] TDAP 2008 115 complet ed [facility] DIVISIO N INFLUENZA, UNSPECIFIED FORMULATION [address] [facility] I INFLUENZA, UNSPECIFIED FORMULATION 2006 88 complet ed [facility] INFLUENZA, UNSPECIFIED FORMULATION 2005 KORTNEY GONZALES 88 comple t ed [facility] DIVISIO N INFLUENZA, UNSPECIFIED FORMULATION 2004 88 complet ed [facility] INFLUENZA, UNSPECIFIED FORMULATION 2003 88 complet ed [facility] INFLUENZA, UNSPECIFIED FORMULATION 2001 88 complet ed [facility] INFLUENZA (HISTORICAL) 2000 88 complet ed [facility] L INFLUENZA (HISTORICAL) 1995 RANDOLPH HUGHES RA 88 complet ed [facility] Results Combined list of recent chemistry, hematology and other laboratory results from Department of Defense and [employer], ranging from 15 months to all on record, depending upon the facility. Order Name Results Value Reference Range Date Interpretation Specimen Comments Source CBC LEUKOCYTES [#/VOLUME] IN BLOOD BY AUTOMATED COUNT 5.3 10*3/u L 3.6 - 11.2 04/08 Specimen Type: BLOOD No comment entered. Ordering Provider: FRANCISCO DAILY Report Released Date/Time: Sep 27, 2024 12:13 PM Reporting Lab: [facility] [address] Performing Lab: [facility] [address] [facility] [address] [facility] CBC ERYTHROCYTE S [#/VOLUME] IN BLOOD BY AUTOMATED COUNT 4.30 10*6/u L 4.10 - 5.70 04/08 Specimen Type: BLOOD No comment entered. Ordering Provider: FRANCISCO DAILY Report Released Date/Time: Sep 27, 2024 12:13 PM Reporting Lab: [facility] [address] [place] [phone] Performing Lab: [facility] [address] [place] [phone] [facility] CBC HEMOGLOBIN [MASS/VOLUM E] IN BLOOD 12.9 g/dL 13.1 - 16.8 04/08 L Specimen Type: BLOOD No comment entered. Ordering Provider: FRANCISCO DAILY Report Released Date/Time: Sep 27, 2024 12:13 PM Reporting Lab: [place] [address] [facility] [address] Performing Lab: [place] [address] [facility] [address] [facility] CBC HEMATOCRIT [VOLUME FRACTION] OF BLOOD 38.0 38.2 - 48.4 04/08 L Specimen Type: BLOOD No comment entered. Ordering Provider: FRANCISCO DAILY Report Released Date/Time: Sep 27, 2024 12:13 PM Reporting Lab: [place] [address] [facility] [address] Performing Lab: [place] [address] [facility] [address] [facility] CBC MCV [ENTITIC VOLUME] BY AUTOMATED COUNT 88.4 fL 80.0 - 100.0 04/08 Specimen Type: BLOOD No comment entered. Ordering Provider: FRANCISCO DAILY Report Released Date/Time: Sep 27, 2024 12:13 PM Reporting Lab: [place] [address] [facility] [address] Performing Lab: [place] [address] [facility] [address] [facility] CBC MCH [ENTITIC MASS] BY AUTOMATED COUNT 30.0 pg 27.0 - 34.0 04/08 Specimen Type: BLOOD No comment entered. Ordering Provider: FRANCISCO DAILY Report Released Date/Time: Sep 27, 2024 12:13 PM Reporting Lab: [place] [address] [facility] [address] Performing Lab: [place] [address] [facility] [address] [facility] CBC MCHC [MASS/VOLUM E] BY AUTOMATED COUNT 33.9 g/dL 33.0 - 36.0 04/08 Specimen Type: BLOOD No comment entered. Ordering Provider: FRANCISCO DAILY Report Released Date/Time: Sep 27, 2024 12:13 PM Reporting Lab: [address] [address] Performing Lab: [address] [address] [facility] CBC PLATELETS [#/VOLUME] IN BLOOD BY AUTOMATED COUNT 173 10*3/u L 150 - 400 04/08 Specimen Type: BLOOD No comment entered. Ordering Provider: FRANCISCO DAILY Report Released Date/Time: Sep 27, 2024 12:13 PM Reporting Lab: [address] [address] Performing Lab: [address] [address] [facility] CBC PLATELET MEAN VOLUME [ENTITIC VOLUME] IN BLOOD BY AUTOMATED COUNT 10.3 fL 7.5 - 11.2 04/08 Specimen Type: BLOOD No comment entered. Ordering Provider: FRANCISCO DAILY Report Released Date/Time: Sep 27, 2024 12:13 PM Reporting Lab: [address] [address] Performing Lab: [address] [address] [facility] CBC ERYTHROCYTE DISTRIBUTIO N WIDTH [RATIO] BY AUTOMATED COUNT 12.8 11.8 - 15.1 04/08 Specimen Type: BLOOD No comment entered. Ordering Provider: FRANCISCO DAILY Report Released Date/Time: Sep 27, 2024 12:13 PM Reporting Lab: [address] [address] Performing Lab: [address] [address] [facility] CBC LYMPHOCYTES /100 LEUKOCYTES IN BLOOD BY AUTOMATED COUNT 29 04/08 Specimen Type: BLOOD No comment entered. Ordering Provider: FRANCISCO DAILY Report Released Date/Time: Sep 27, 2024 12:13 PM Reporting Lab: [facility] [address] [facility] [address] Performing Lab: [facility] [address] [facility] [address] [facility] CBC MONOCYTES/1 00 LEUKOCYTES IN BLOOD BY AUTOMATED COUNT 11 04/08 Specimen Type: BLOOD No comment entered. Ordering Provider: FRANCISCO DAILY Report Released Date/Time: Sep 27, 2024 12:13 PM Reporting Lab: [facility] [address] [facility] [address] Performing Lab: [facility] [address] [facility] [address] [facility] CBC NEUTROPHILS /100 LEUKOCYTES IN BLOOD BY AUTOMATED COUNT 52 04/08 Specimen Type: BLOOD No comment entered. Ordering Provider: FRANCISCO DAILY Report Released Date/Time: Sep 27, 2024 12:13 PM Reporting Lab: [facility] [address] [facility] [address] Performing Lab: [facility] [address] [facility] [address] [facility] CBC EOSINOPHILS /100 LEUKOCYTES IN BLOOD BY AUTOMATED COUNT 6 04/08 Specimen Type: BLOOD No comment entered. Ordering Provider: FRANCISCO DAILY Report Released Date/Time: Sep 27, 2024 12:13 PM Reporting Lab: [facility] [address] [facility] [address] Performing Lab: [facility] [address] [facility] [address] [facility] CBC BASOPHILS/1 00 LEUKOCYTES IN BLOOD BY AUTOMATED COUNT 2 04/08 Specimen Type: BLOOD No comment entered. Ordering Provider: FRANCISCO DAILY Report Released Date/Time: Sep 27, 2024 12:13 PM Reporting Lab: [place] [address] [facility] [address] Performing Lab: [place] [address] [facility] [address] [facility] CBC LYMPHOCYTES [#/VOLUME] IN BLOOD BY AUTOMATED COUNT 1.53 10*3/u L 0.77 - 4.50 04/08 Specimen Type: BLOOD No comment entered. Ordering Provider: FRANCISCO DAILY Report Released Date/Time: Sep 27, 2024 12:13 PM Reporting Lab: [place] [address] [place] [phone] Performing Lab: [address] [address] [facility] CBC MONOCYTES [#/VOLUME] IN BLOOD BY AUTOMATED COUNT 0.57 10*3/u L 0.19 - 0.80 04/08 Specimen Type: BLOOD No comment entered. Ordering Provider: FRANCISCO DAILY Report Released Date/Time: Sep 27, 2024 12:13 PM Reporting Lab: [address] [address] Performing Lab: [place] [address] [facility] [address] [facility] CBC NEUTROPHILS [#/VOLUME] IN BLOOD BY AUTOMATED COUNT 2.74 10*3/u L 2.10 - 8.00 04/08 Specimen Type: BLOOD No comment entered. Ordering Provider: FRANCISCO DAILY Report Released Date/Time: Sep 27, 2024 12:13 PM Reporting Lab: [place] [address] [facility] [address] Performing Lab: [address] [address] [facility] CBC EOSINOPHILS [#/VOLUME] IN BLOOD BY AUTOMATED COUNT 0.30 10*3/u L 0.00 - 0.60 04/08 Specimen Type: BLOOD No comment entered. Ordering Provider: FRANCISCO DAILY Report Released Date/Time: Sep 27, 2024 12:13 PM Reporting Lab: [address] [address] Performing Lab: [address] [address] [facility] CBC BASOPHILS [#/VOLUME] IN BLOOD BY AUTOMATED COUNT 0.10 10*3/u L 0.00 - 0.20 04/08 Specimen Type: BLOOD No comment entered. Ordering Provider: FRANCISCO DAILY Report Released Date/Time: Sep 27, 2024 12:13 PM Reporting Lab: [place] [address] Performing Lab: [address] [phone] [place] [address] RENAL PANEL CREATININE [MASS/VOLUM E] IN SERUM OR PLASMA 1.63 mg/dL 0.7 - 1.3 04/08 H Specimen Type: PLASMA Comment: No hemolysis noted. Ordering Provider: FRANCISCO DAILY Report Released Date/Time: Sep 27, 2024 12:13 PM Reporting Lab: [address] [address] Performing Lab: [address] [address] [facility] RENAL PANEL UREA NITROGEN [MASS/VOLUM E] IN SERUM OR PLASMA 31.9 mg/dL 9.0 - 25.0 04/08 H Specimen Type: PLASMA Comment: No hemolysis noted. Ordering Provider: FRANCISCO DAILY Report Released Date/Time: Sep 27, 2024 12:13 PM Reporting Lab: [address] [address] Performing Lab: [address] [address] [facility] RENAL PANEL GLUCOSE [MASS/VOLUM E] IN SERUM OR PLASMA 143 mg/dL 72 - 99 04/08 H Specimen Type: PLASMA Comment: No hemolysis noted. Ordering Provider: FRANCISCO DAILY Report Released Date/Time: Sep 27, 2024 12:13 PM Reporting Lab: [facility] [address] [facility] [address] Performing Lab: [facility] [address] [facility] [address] [facility] RENAL PANEL SODIUM [MOLES/VOLU ME] IN SERUM OR PLASMA 136 meq/L 136 - 145 04/08 Specimen Type: PLASMA Comment: No hemolysis noted. Ordering Provider: FRANCISCO DAILY Report Released Date/Time: Sep 27, 2024 12:13 PM Reporting Lab: [facility] [address] [place] [phone] Performing Lab: [facility] [address] [place] [address] [facility] RENAL PANEL POTASSIUM [MOLES/VOLU ME] IN SERUM OR PLASMA 4.5 meq/L 3.5 - 5 04/08 Specimen Type: PLASMA Comment: No hemolysis noted. Ordering Provider: FRANCISCO DAILY Report Released Date/Time: Sep 27, 2024 12:13 PM Reporting Lab: [facility] [address] [facility] [address] Performing Lab: [facility] [address] [facility] [address] [facility] RENAL PANEL CHLORIDE [MOLES/VOLU ME] IN SERUM OR PLASMA 110 meq/L 98 - 107 04/08 H Specimen Type: PLASMA Comment: No hemolysis noted. Ordering Provider: FRANCISCO DAILY Report Released Date/Time: Sep 27, 2024 12:13 PM Reporting Lab: [facility] [address] [place] [address] Performing Lab: [facility] [address] [facility] [address] [facility] RENAL PANEL CARBON DIOXIDE, TOTAL [MOLES/VOLU ME] IN SERUM OR PLASMA 20 meq/L 22 - 31 04/08 L Specimen Type: PLASMA Comment: No hemolysis noted. Ordering Provider: FRANCISCO DAILY Report Released Date/Time: Sep 27, 2024 12:13 PM Reporting Lab: [facility] [address] [facility] [address] Performing Lab: [facility] [address] [facility] [address] [facility] RENAL PANEL CALCIUM [MASS/VOLUM E] IN SERUM OR PLASMA 9.0 mg/dL 8.4 - 10.4 04/08 Specimen Type: PLASMA Comment: No hemolysis noted. Ordering Provider: FRANCISCO DAILY Report Released Date/Time: Sep 27, 2024 12:13 PM Reporting Lab: [place] [address] [facility] [address] Performing Lab: [place] [address] [facility] [address] [facility] RENAL PANEL PHOSPHATE [MASS/VOLUM E] IN SERUM OR PLASMA 4.2 mg/dL 2.3 - 4.7 04/08 Specimen Type: PLASMA Comment: No hemolysis noted. Ordering Provider: FRANCISCO DAILY Report Released Date/Time: Sep 27, 2024 12:13 PM Reporting Lab: [place] [address] [facility] [address] Performing Lab: [place] [address] [facility] [address] [facility] RENAL PANEL ALBUMIN [MASS/VOLUM E] IN SERUM OR PLASMA 3.6 g/dL 3.4 - 5 04/08 Specimen Type: PLASMA Comment: No hemolysis noted. Ordering Provider: FRANCISCO DAILY Report Released Date/Time: Sep 27, 2024 12:13 PM Reporting Lab: [facility] [address] [facility] [address] Performing Lab: [address] [address] [facility] RENAL PANEL GLOMERULAR FILTRATION RATE/1.73 SQ M.PREDICTED [VOLUME RATE/AREA] IN SERUM, PLASMA OR BLOOD BY CREATININE- BASED FORMULA (CKD-EPI 2020) 44.8 60 04/08 Specimen Type: PLASMA Comment: No hemolysis noted. Ordering Provider: FRANCISCO DAILY Report Released Date/Time: Sep 27, 2024 12:13 PM Reporting Lab: [place] [address] [facility] [address] Performing Lab: [facility] [address] [facility] [address] [facility] TACROLIMUS (STL-PB) TACROLIMUS [MASS/VOLUM E] IN BLOOD 3.7 ng/mL 04/08 Specimen Type: BLOOD No comment entered. Ordering Provider: FRANCISCO DAILY Report Released Date/Time: Sep 27, 2024 12:13 PM Reporting Lab: [place] [address] [facility] [address] Performing Lab: [place] [address] [facility] [address] [facility] URINALYSIS (STL-PB) COLOR OF URINE Light- Yellow 04/08 Specimen Type: URINE No comment entered. Ordering Provider: FRANCISCO DAILY Report Released Date/Time: Sep 27, 2024 12:13 PM Reporting Lab: [place] [address] [facility] [address] Performing Lab: [address] [address] [facility] URINALYSIS (STL-PB) BILIRUBIN.T OTAL [PRESENCE] IN URINE BY TEST STRIP Negati vemg/d L 04/08 Specimen Type: URINE No comment entered. Ordering Provider: FRANCISCO DAILY Report Released Date/Time: Sep 27, 2024 12:13 PM Reporting Lab: [place] [address] [facility] [address] Performing Lab: [place] [address] [facility] [address] [facility] URINALYSIS (STL-PB) PH OF URINE BY TEST STRIP 6.0 5.0 - 8.0 04/08 Specimen Type: URINE No comment entered. Ordering Provider: FRANCISCO DAILY Report Released Date/Time: Sep 27, 2024 12:13 PM Reporting Lab: [address] [address] Performing Lab: [address] [phone] [place] [address] URINALYSIS (STL-PB) APPEARANCE OF URINE Clear 04/08 Specimen Type: URINE No comment entered. Ordering Provider: FRANCISCO DAILY Report Released Date/Time: Sep 27, 2024 12:13 PM Reporting Lab: [address] [address] Performing Lab: [address] [phone] [place] [address] URINALYSIS (STL-PB) NITRITE [PRESENCE] IN URINE BY TEST STRIP Negati vemg/d L 04/08 Specimen Type: URINE No comment entered. Ordering Provider: FRANCISCO DAILY Report Released Date/Time: Sep 27, 2024 12:13 PM Reporting Lab: [address] [address] Performing Lab: [address] [address] [facility] URINALYSIS (STL-PB) GLUCOSE [MASS/VOLUM E] IN URINE BY TEST STRIP 1000 mg/dL 04/08 H Specimen Type: URINE No comment entered. Ordering Provider: FRANCISCO DAILY Report Released Date/Time: Sep 27, 2024 12:13 PM Reporting Lab: [address] [address] Performing Lab: [address] [address] [facility] URINALYSIS (STL-PB) PROTEIN [MASS/VOLUM E] IN URINE BY TEST STRIP Negati vemg/d L 04/08 Specimen Type: URINE No comment entered. Ordering Provider: FRANCISCO DAILY Report Released Date/Time: Sep 27, 2024 12:13 PM Reporting Lab: [place] [address] [facility] [address] Performing Lab: [facility] [address] [place] [address] [facility] URINALYSIS (L-PB) URN.UROBILI NOGEN Normal mg/dL 04/08 Specimen Type: URINE No comment entered. Ordering Provider: FRANCISCO DAILY Report Released Date/Time: Sep 27, 2024 12:13 PM Reporting Lab: [address] [address] Performing Lab: [address] [address] [facility] URINALYSIS (L-PB) HEMOGLOBIN [MASS/VOLUM E] IN URINE BY TEST STRIP Negati vemg/d L 04/08 Specimen Type: URINE No comment entered. Ordering Provider: FRANCISCO DAILY Report Released Date/Time: Sep 27, 2024 12:13 PM Reporting Lab: [address] [address] Performing Lab: [address] [address] [facility] URINALYSIS (L-PB) KETONES [MASS/VOLUM E] IN URINE BY TEST STRIP Negati vemg/d L 04/08 Specimen Type: URINE No comment entered. Ordering Provider: FRANCISCO DAILY Report Released Date/Time: Sep 27, 2024 12:13 PM Reporting Lab: [place] [address] [facility] [address] Performing Lab: [address] [address] [facility] URINALYSIS (STL-PB) URN.LEUK.ES T. Negati vemg/d L 04/08 Specimen Type: URINE No comment entered. Ordering Provider: FRANCISCO DAILY Report Released Date/Time: Sep 27, 2024 12:13 PM Reporting Lab: [facility] [address] [facility] [address] Performing Lab: [address] [address] [facility] URINALYSIS (STL-PB) SPECIFIC GRAVITY OF URINE 1.015 04/08 Specimen Type: URINE No comment entered. Ordering Provider: FRANCISCO DAILY Report Released Date/Time: Sep 27, 2024 12:13 PM Reporting Lab: [address] [address] Performing Lab: [address] [address] [facility] IRON/TIBC PROFILE IRON BINDING CAPACITY [MASS/VOLUM E] IN SERUM OR PLASMA 304 ug/dL 250 - 450 03/18 Specimen Type: SERUM No comment entered. Ordering Provider: AFUA MATTHEWS RID Report Released Date/Time: Mar 18, 2025 11:52 AM Reporting Lab: [address] [address] Performing Lab: [address] [address] [facility] IRON/TIBC PROFILE TRANSFERRIN [MASS/VOLUM E] IN SERUM OR PLASMA 243 mg/dL 163 - 344 03/18 Specimen Type: SERUM No comment entered. Ordering Provider: AFUA MATTHEWS RID Report Released Date/Time: Mar 18, 2025 11:52 AM Reporting Lab: [address] [address] Performing Lab: [address] [address] [facility] IRON/TIBC PROFILE IRON SATURATION [MASS FRACTION] IN SERUM OR PLASMA 23 20 - 50 03/18 Specimen Type: SERUM No comment entered. Ordering Provider: AFUA MATTHEWS RID Report Released Date/Time: Mar 18, 2025 11:52 AM Reporting Lab: [facility] [address] [facility] [address] Performing Lab: [facility] [address] [place] [phone] [place] [address] IRON/TIBC PROFILE IRON [MASS/VOLUM E] IN SERUM OR PLASMA 69 ug/dL 65 - 175 03/18 Specimen Type: SERUM No comment entered. Ordering Provider: AFUA MATTHEWS RID Report Released Date/Time: Mar 18, 2025 11:52 AM Reporting Lab: [facility] [address] [facility] [address] Performing Lab: [phone] [place] [address] TSH W/ REFLEX FT4 (STL) THYROTROPIN [UNITS/VOLU ME] IN SERUM OR PLASMA 1.692 u[IU]/ mL 0.47 - 5 03/18 Specimen Type: PLASMA No comment entered. Ordering Provider: AFUA MATTHEWS RID Report Released Date/Time: Mar 18, 2025 11:52 AM Reporting Lab: [facility] [address] [facility] [address] Performing Lab: [address] [phone] [place] [address] URINALYSIS (STL-PB) COLOR OF URINE Light- Yellow 03/18 Specimen Type: URINE No comment entered. Ordering Provider: FRANCISCO DAILY Report Released Date/Time: Sep 27, 2024 12:13 PM Reporting Lab: [facility] [address] [place] [phone] Performing Lab: [facility] [address] [facility] [address] [facility] URINALYSIS (STL-PB) BILIRUBIN.T OTAL [PRESENCE] IN URINE BY TEST STRIP Negati vemg/d L 03/18 Specimen Type: URINE No comment entered. Ordering Provider: FRANCISCO DAILY Report Released Date/Time: Sep 27, 2024 12:13 PM Reporting Lab: [facility] [address] [facility] [address] Performing Lab: [facility] [address] [place] [phone] [place] [address] URINALYSIS (STL-PB) PH OF URINE BY TEST STRIP 6.0 5.0 - 8.0 03/18 Specimen Type: URINE No comment entered. Ordering Provider: FRANCISCO DAILY Report Released Date/Time: Sep 27, 2024 12:13 PM Reporting Lab: [address] [address] Performing Lab: [place] [phone] URINALYSIS (STL-PB) APPEARANCE OF URINE Clear 03/18 Specimen Type: URINE No comment entered. Ordering Provider: FRANCISCO DAILY Report Released Date/Time: Sep 27, 2024 12:13 PM Reporting Lab: [address] [address] Performing Lab: [address] [address] [facility] URINALYSIS (STL-PB) NITRITE [PRESENCE] IN URINE BY TEST STRIP Negati vemg/d L 03/18 Specimen Type: URINE No comment entered. Ordering Provider: FRANCISCO DAILY Report Released Date/Time: Sep 27, 2024 12:13 PM Reporting Lab: [address] [address] Performing Lab: [facility] [address] [facility] [address] [facility] URINALYSIS (STL-PB) GLUCOSE [MASS/VOLUM E] IN URINE BY TEST STRIP Normal mg/dL 03/18 Specimen Type: URINE No comment entered. Ordering Provider: FRANCISCO DAILY Report Released Date/Time: Sep 27, 2024 12:13 PM Reporting Lab: [address] [address] Performing Lab: [address] [address] [facility] URINALYSIS (STL-PB) PROTEIN [MASS/VOLUM E] IN URINE BY TEST STRIP Negati vemg/d L 03/18 Specimen Type: URINE No comment entered. Ordering Provider: FRANCISCO DAILY Report Released Date/Time: Sep 27, 2024 12:13 PM Reporting Lab: [address] [address] Performing Lab: [address] [phone] URINALYSIS (L-PB) URN.UROBILI NOGEN Normal mg/dL 03/18 Specimen Type: URINE No comment entered. Ordering Provider: FRANCISCO DAILY Report Released Date/Time: Sep 27, 2024 12:13 PM Reporting Lab: [address] [address] Performing Lab: [address] [address] [facility] URINALYSIS (L-PB) HEMOGLOBIN [MASS/VOLUM E] IN URINE BY TEST STRIP Negati vemg/d L 03/18 Specimen Type: URINE No comment entered. Ordering Provider: FRANCISCO DAILY Report Released Date/Time: Sep 27, 2024 12:13 PM Reporting Lab: [address] [address] Performing Lab: [address] [address] [facility] URINALYSIS (STL-PB) KETONES [MASS/VOLUM E] IN URINE BY TEST STRIP Negati vemg/d L 03/18 Specimen Type: URINE No comment entered. Ordering Provider: FRANCISCO DAILY Report Released Date/Time: Sep 27, 2024 12:13 PM Reporting Lab: [facility] [address] [place] [phone] Performing Lab: [place] [phone] URINALYSIS (STL-PB) URN.LEUK.ES T. Negati vemg/d L 03/18 Specimen Type: URINE No comment entered. Ordering Provider: FRANCISCO DAILY Report Released Date/Time: Sep 27, 2024 12:13 PM Reporting Lab: [place] [phone] Performing Lab: [place] [id number] URINALYSIS ([facility]) SPECIFIC GRAVITY OF URINE 1.019 03/18 Specimen Type: URINE No comment entered. Ordering Provider: FRANCISCO DAILY Report Released Date/Time: Sep 27, 2024 12:13 PM Reporting Lab: [address] [phone] Performing Lab: [place] [id number] [place] [address] HGA1C HEMOGLOBIN A1C/HEMOGLO BIN.TOTAL IN BLOOD 8.1 4.0 - 6.0 03/11 H Specimen Type: BLOOD No comment entered. Ordering Provider: FRANCISCO DAILY Report Released Date/Time: Sep 27, 2024 12:13 PM Reporting Lab: [place] [phone] Performing Lab: [address] [phone] [facility] RENAL PANEL CREATININE [MASS/VOLUM E] IN SERUM OR PLASMA 1.77 mg/dL 0.7 - 1.3 03/11 H Specimen Type: PLASMA Comment: No hemolysis noted. Ordering Provider: FRANCISCO DAILY Report Released Date/Time: Sep 27, 2024 12:13 PM Reporting Lab: [facility] [address] [place] [phone] Performing Lab: [facility] [address] [place] [address] [facility] RENAL PANEL UREA NITROGEN [MASS/VOLUM E] IN SERUM OR PLASMA 34.2 mg/dL 9.0 - 25.0 03/11 H Specimen Type: PLASMA Comment: No hemolysis noted. Ordering Provider: FRANCISCO DAILY Report Released Date/Time: Sep 27, 2024 12:13 PM Reporting Lab: [address] [address] Performing Lab: [address] [address] [facility] RENAL PANEL GLUCOSE [MASS/VOLUM E] IN SERUM OR PLASMA 148 mg/dL 72 - 99 03/11 H Specimen Type: PLASMA Comment: No hemolysis noted. Ordering Provider: FRANCISCO DAILY Report Released Date/Time: Sep 27, 2024 12:13 PM Reporting Lab: [address] [address] Performing Lab: [address] [address] [facility] RENAL PANEL SODIUM [MOLES/VOLU ME] IN SERUM OR PLASMA 134 meq/L 136 - 145 03/11 L Specimen Type: PLASMA Comment: No hemolysis noted. Ordering Provider: FRANCISCO DAILY Report Released Date/Time: Sep 27, 2024 12:13 PM Reporting Lab: [address] [address] Performing Lab: [address] [address] [facility] RENAL PANEL POTASSIUM [MOLES/VOLU ME] IN SERUM OR PLASMA 4.5 meq/L 3.5 - 5 03/11 Specimen Type: PLASMA Comment: No hemolysis noted. Ordering Provider: FRANCISCO DAILY Report Released Date/Time: Sep 27, 2024 12:13 PM Reporting Lab: [facility] [address] [facility] [address] Performing Lab: [facility] [address] [place] [phone] [facility] RENAL PANEL CHLORIDE [MOLES/VOLU ME] IN SERUM OR PLASMA 105 meq/L 98 - 107 03/11 Specimen Type: PLASMA Comment: No hemolysis noted. Ordering Provider: FRANCISCO DAILY Report Released Date/Time: Sep 27, 2024 12:13 PM Reporting Lab: [place] [address] [facility] [address] Performing Lab: [address] [address] [facility] RENAL PANEL CARBON DIOXIDE, TOTAL [MOLES/VOLU ME] IN SERUM OR PLASMA 23 meq/L 22 - 31 03/11 Specimen Type: PLASMA Comment: No hemolysis noted. Ordering Provider: FRANCISCO DAILY Report Released Date/Time: Sep 27, 2024 12:13 PM Reporting Lab: [place] [address] [facility] [address] Performing Lab: [facility] [address] [place] [address] [facility] RENAL PANEL CALCIUM [MASS/VOLUM E] IN SERUM OR PLASMA 9.3 mg/dL 8.4 - 10.4 03/11 Specimen Type: PLASMA Comment: No hemolysis noted. Ordering Provider: FRANCISCO DAILY Report Released Date/Time: Sep 27, 2024 12:13 PM Reporting Lab: [place] [address] [facility] [address] Performing Lab: [address] [address] [facility] RENAL PANEL PHOSPHATE [MASS/VOLUM E] IN SERUM OR PLASMA 2.9 mg/dL 2.3 - 4.7 03/11 Specimen Type: PLASMA Comment: No hemolysis noted. Ordering Provider: FRANCISCO DAILY Report Released Date/Time: Sep 27, 2024 12:13 PM Reporting Lab: [place] [address] [facility] [address] Performing Lab: [place] [address] [facility] [phone] [place] [address] RENAL PANEL ALBUMIN [MASS/VOLUM E] IN SERUM OR PLASMA 3.6 g/dL 3.4 - 5 03/11 Specimen Type: PLASMA Comment: No hemolysis noted. Ordering Provider: FRANCISCO DAILY Report Released Date/Time: Sep 27, 2024 12:13 PM Reporting Lab: [place] [address] [facility] [address] Performing Lab: [place] [address] [facility] [address] [facility] RENAL PANEL GLOMERULAR FILTRATION RATE/1.73 SQ M.PREDICTED [VOLUME RATE/AREA] IN SERUM, PLASMA OR BLOOD BY CREATININE- BASED FORMULA (CKD-EPI 2020) 40.6 60 03/11 Specimen Type: PLASMA Comment: No hemolysis noted. Ordering Provider: FRANCISCO DAILY Report Released Date/Time: Sep 27, 2024 12:13 PM Reporting Lab: [place] [address] [facility] [address] Performing Lab: [place] [address] [facility] [address] [facility] TACROLIMUS (STL-PB) TACROLIMUS [MASS/VOLUM E] IN BLOOD 5.5 ng/mL 03/11 Specimen Type: BLOOD No comment entered. Ordering Provider: FRANCISCO DAILY Report Released Date/Time: Sep 27, 2024 12:13 PM Reporting Lab: [place] [address] [facility] [address] Performing Lab: [facility] [address] [facility] [address] [facility] Vital Signs Combined list of inpatient and outpatient Vital Signs from Department of Defense and Veterans Affairs, ranging from 12 months to all on record, depending upon the facility. Vital Sign Value Date Comments Source SYSTOLIC BLOOD PRESSURE 143 04/10/2025 09:51:23 [facility] DIASTOLIC BLOOD PRESSURE 76 04/10/2025 09:51:23 [facility] PULSE OXIMETRY 96 % 04/10[facility]2025 [facility]51:[facility].9 04/10/2025 09:51:23 [facility] PULSE 73 04/10/2025 09:51:23 [facility] RESPIRATION 22 04/10/2025 09:51:23 [facility] SYSTOLIC BLOOD PRESSURE 110 03/27/2025 12:28:49 [facility] DIASTOLIC BLOOD PRESSURE 71 03/27/2025 12:28:49 [facility] PULSE OXIMETRY 96 % 03/27/2025 12:28:49 S Fernando [facility] WEIGHT 215 03/27/2025 12:28:49 [facility] BMI 30 kg/m2 03/27/2025 12:28:49 [facility] PAIN 0 03/27/2025 12:28:49 [facility] TEMPERATURE 97.3 03/27/2025 12:28:49 [facility] PULSE 73 03/27/2025 12:28:49 [facility] RESPIRATION 18 03/27/2025 12:28:49 [facility] SYSTOLIC BLOOD PRESSURE 126 03/25/2025 13:40:00 [facility] DIASTOLIC BLOOD PRESSURE 66 03/25/2025 13:40:00 [facility] PULSE OXIMETRY 97 % 03/25/2025 13:40:00 [facility] PAIN 0 03/25/2025 13:40:00 [facility] PULSE 62 03/25/2025 13:40:00 [facility] 16 03/25/2025 13:40:00 [facility] SYSTOLIC BLOOD PRESSURE 114 03/18/2025 11:13:34 [facility] DIASTOLIC BLOOD PRESSURE 72 03/18/2025 11:13:34 [facility] PULSE OXIMETRY 96 % 03/18/2025 11:13:34 S Fernando [facility] WEIGHT 215 03/18/2025 11:13:34 [facility] BMI 30 kg/m2 03/18/2025 11:13:34 [facility] PAIN 0 03/18/2025 11:13:34 [facility] TEMPERATURE 97.3 03/18/2025 11:13:34 [facility] PULSE 77 03/18/2025 11:13:34 [facility] [facility] RESPIRATION 20 03/18/2025 11:13:34 [facility] PAIN 5 12/27/2024 10:06:00 [facility] TEMPERATURE 98 12/27/2024 10:06:00 [facility] PULSE 60 12/27/2024 10:06:00 [facility] RESPIRATION 17 12/27/2024 10:06:00 [facility] Encounters Combined list of: 1) Encounters from Department of [facility] Affairs facilities going backup to the last 18 months, not all VA inpatient encounters are included; 2) Encounters from the Department of Defense facilities going backup to 280 months. 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 Junior BECERRIL ERA J 12/18 [facility] OFFICE O/P EST SF 10 MIN [id number] [id number] 9 Diagnos is: ICD-10- CM S91.309 D Unspeci fied open wound, 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 foot, subs encntr COUPER,MARCELO JOHAN G 12/27 [facility] Outpatient Encounter [id number] 01/07 [facility] Outpatient Encounter [id number] [id number] 01/07 [facility] Outpatient Encounter [id number] [id number] Diagnos is: ICD-10- CM R60.0 Localiz ed edema MARCELO VALENTINO S 01/07 [facility] PSYTX W PT 30 MINUTES [id number] [id number] Diagnos is: ICD-10- CM 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 Junior BECERRIL 01/24 [facility] Outpatient Encounter [id number] [id number] Junior BECERRIL 01/24 [facility] Outpatient Encounter [id number] [id number] 01/31 [facility] OFFICE O/[place] HI 40 MIN [id number] [id number] 1 Diagnos is: ICD-10- CM E10.8 Type 1 diabete s mellitu s with 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 complic atRODNEY Croft 01/31 [facility] Outpatient Encounter [id number] [id number] 02/07 [facility] AFO RIG ANT TIB PREFAB TCF/= [id number] [id number] Diagnos is: ICD-10- CM Z46.89 Encount er for fitting and adjustm ent of oth devices HERNANDO SALAS 02/12 [facility] OFFICE O/P EST LOW 20 MIN [id number] [id number] Diagnos is: ICD-10- CM S91.309 D Unspeci fied open wound, 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 foot, subs encntr COUPER,MARCELO JOHAN G 02/18 [facility] Outpatient Encounter [id number] [id number] 02/19 [facility] PSYTX W PT 30 MINUTES [id number] [id number] Diagnos is: ICD-10- CM 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 Junior BECERRIL 03/01 [facility] OFFICE O/[place] HI 40 MIN [id number] [id number] 8 Diagnos is: ICD-10- CM E08.22 Diabete 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 FRANCISCO DAILY 03/12 [facility] OFFICE O/P EST LOW 20 MIN [id number] [id number] Diagnos is: ICD-10- CM E10.8 Type 1 diabete s mellitu s with 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 complic RODNEY Andersen 03/13 [facility] HC PRO PHONE CALL 5-10 MIN [id number] [id number] 4 Diagnos is: ICD-10- CM N18.32 Chronic kidney disease , stage 3b CHUNG GARCIA S 03/18 [facility] OFFICE O/P EST SF 10 MIN [id number] [id number] Diagnos is: ICD-10- CM S91.106 D Unsp opn wnd unsp lesser toe(s) w/o damage to nail, subs COUPER,MARCELO JOHAN G 03/21 [facility] ART PANCREAS SYSTEM 01117-5.65 [id number] 2 Diagnos is: ICD-10- CM E10.8 Type 1 diabete s mellitu s with 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 complic sim DUSTINRODNEY 03/22 [facility] OFFICE O/P EST MOD 30 MIN [id number] [id number] 1 Diagnos is: ICD-10- CM 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 Yaninck GABRIEL 03/29 [facility] OFF/OP CNSLTJ NEW/EST MOD 40 [id number] [id number] 6 Diagnos is: ICD-10- CM R19.7 Diarrhe a, 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 OLVIN GARCIA 04/01 [facility] Outpatient Encounter [id number] [id number] 04/01 [facility] HC PRO PHONE CALL 5-10 MIN [id number] [id number] Diagnos is: ICD-10- CM 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, 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 Pritesh HIGHTOWER 04/03 [facility] Outpatient Encounter [id number] [id number] ELEN QUILES 04/12 [facility] OFFICE O/P EST MOD 30 MIN [id number] [id number] Diagnos is: ICD-10- CM 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 AFUA Saez RID 04/18 [facility] Outpatient Encounter [id number] [id number] 04/18 [facility] QNHP OL DIG ASSMT&MGMT 5-10 74823-4.65 [id number] 3 Diagnos is: ICD-10- CM G47.39 Other sleep apnea Domi FREED A 04/23 [facility] OFFICE O/P EST HI 40 MIN [id number] [id number] 3 Diagnos is: ICD-10- CM R06.00 Dyspnea , 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 THI GAN 04/23 [facility] OFFICE O/P EST SF 10 MIN [id number] [id number] 4 Diagnos is: ICD-10- CM S91.309 D Unspeci fied open wound, 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 foot, subs encntr COUPER,MARCELO JOHAN G 04/25 [facility] SPACER WITHOUT MASK 13902-4.65 [id number] 7 Diagnos is: ICD-10- CM R06.00 Dyspnea , 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 ANGY CONDE 05/03 [facility] Outpatient Encounter [id number]. [id number] ALVARO GREENE 05/03 [facility] Outpatient Encounter [id number] [id number] 05/09 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 Junior BECERRIL J 05/10 [facility] Outpatient Encounter [id number] [id number] Junior BECERRIL 05/10 [facility] Outpatient Encounter [id number] [id number] 05/10 [facility] Outpatient Encounter [id number] [id number] 05/15 [facility] Outpatient Encounter [id number] [id number] 6 05/20 [facility] Outpatient Encounter [id number] [id number] CLARA ROSALES RNISHA C 05/21 [facility] Outpatient Encounter [id number] [id number] 1 05/21 [facility] ECHOCARDIO GRAPHY CONTRAST [id number] [id number] 5 Diagnos is: ICD-10- CM R06.00 Dyspnea , 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 CANDELARIO BLOCK 05/21 [facility] POS AIRWAY PRESSURE CPAP [id number] [id number] 1 Diagnos is: ICD-10- CM G47.39 Other sleep apnea HUMBERTO LAZCANO 05/21 [facility] Outpatient Encounter [id number] [id number] Diagnos is: ICD-10- CM R90.81 Abnorma l echoenc ephalog marlo THI GAN 05/27 [facility] Outpatient Encounter [id number] [id number] 06/10 [facility] Outpatient Encounter [id number] [id number] 1 06/12 [facility] OFFICE O/P EST HI 40 MIN 19905-6.65 [id number] Diagnos is: ICD-10- CM E10.8 Type 1 diabete s mellitu s with 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 complic atRODNEY Croft 06/13 [facility] THERAPEUTI C ACTIVITIES 67058-8.65 [id number] 9 Diagnos is: ICD-10- CM I89.0 Lymphed lorenza, not elsewhe re classif ied JOHNATHAN PARRA K 06/14 [facility] OFF/OP EST MAY X REQ PHY/QHP 91693-9.65 [id number] 3 Diagnos is: ICD-10- CM G47.33 Obstruc tive sleep apnea (adult) ([facility] j[facility]min) MILLION,KE LLY G 06/14 [facility] PSYTX W PT 30 MINUTES 08745-5.65 [id number] Diagnos is: ICD-10- CM 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 Outpatient Encounter [id number] [id number] 07/03 [facility] Outpatient Encounter 54979-6.65 [id number] 1 07/04 [facility] COLONOSCOP Y AND BIOPSY 08198-3.65 [id number] 5 Diagnos is: ICD-10- CM R19.7 Diarrhe a, 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 OLVIN GARCIA 07/05 [facility] OFFICE O/P EST MOD 30 MIN 45519-9.65 [id number] 3 Diagnos is: ICD-10- CM Z01.818 Encount er for other preproc edural examBruce Echevarria 07/05 [facility] Outpatient Encounter [id number] [id number] 07/05 [facility] Outpatient Encounter [id number] [id number] 1 ELSIE SRIVASTAVA 07/05 [facility] Outpatient Encounter 55983-7.65 [id number] 07/08 [facility] Outpatient Encounter [id number] [id number] REBECCAJAVIER Blancas S 07/08 [facility] Outpatient Encounter [id number] [id number] 07/09 [facility] Outpatient Encounter [id number] [id number] 1 07/16 [facility] KEVIN [facility] Outpatient Encounter 61548-6.53 [id number] 07/18 [facility] Outpatient Encounter [id number] [id number] 07/18 [facility] Outpatient Encounter [id number] [id number] 07/18 [facility] FUNDUS PHOTOGRAPH Y W/I&R 12862-9.65 [id number] Diagnos is: ICD-10- CM Z13.5 Encount er for screeni ng for eye and ear disorde rs KATRIN SRINIVASAN 07/[address] 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 Junior BECERRIL 07/19 [facility] HC PRO PHONE CALL 5-10 MIN 41811-2.65 [id number] 9 Diagnos is: ICD-10- CM Z02.9 Encount er for adminis trative examina tions, 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 Domi FREED A 07/19 [facility] Outpatient Encounter [id number] [id number] KIET MCCANN 07/25 [facility] Outpatient Encounter [id number] [id number] 5 07/26 [facility] HC PRO PHONE CALL 5-10 MIN [id number] [id number] 4 Diagnos is: ICD-10- CM 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 ALICIA WELCH A 07/30 [facility] Outpatient Encounter [id number] [id number] 3 08/20 [facility] OFFICE O/P EST LOW 20 MIN 51599-7.65 [id number] 3 Diagnos is: ICD-10- CM Z86.718 Persona l history of other venous thrombo sis and embolis m MOSHE CARDONA 08/21 [facility] OFFICE O/P EST HI 40 MIN 77783-7.65 [id number] 9 Diagnos is: ICD-10- CM I27.20 Pulmona ry hyperte nsion, 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 VILLATOROGLORIA OSULLIVAN Domi 08/30 [facility] PSYTX W PT 30 MINUTES 77456-6.65 [id number] Diagnos is: ICD-10- CM 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 Junior BECERRIL ERA J 09/05 [facility] Outpatient Encounter 86646-9.65 [id number] Junior BECERRIL ERA J 09/05 [facility] Outpatient Encounter [id number] [id number] 5 ELEN QUILESPAOLASheila S 09/12 [facility] PH1 ASSMT&MGMT NQHP 21-30 11041-8.65 [id number] 2 Diagnos is: ICD-10- CM I27.20 Pulmona ry hyperte nsion, 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 OLIVIARADHA Lisa 09/16 [facility] Outpatient Encounter 53619-3.65 [id number] 7 09/16 [facility] OFFICE O/P EST MOD 30 MIN [id number] [id number] Diagnos is: ICD-10- CM 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 AFUA MATTHEWS RID 09/18 [facility] OFFICE O/P EST SF 10 MIN 64529-2.65 [id number] 5 Diagnos is: ICD-10- CM S81.809 D Unspeci fied open wound, 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 lower leg, subs encntr COUPER,MARCELO JOHAN G 09/19 [facility] OFFICE O/P EST LOW 20 MIN 10841-3.65 [id number] Diagnos is: ICD-10- CM L57.0 Actinic keratos is FELIX BY RR 09/25 [facility] Outpatient Encounter [id number] [id number] 3 10/02 [facility] INTER[place] PM/[place] [address]-8.65 [id number] 7 Diagnos is: ICD-10- CM I49.5 Sick sinus syndrom e MORALES SKINNER IE S 10/03 [facility] OFFICE O/P EST MOD 30 MIN 28909-7.65 [id number] 4 Diagnos is: ICD-10- CM I48.0 Paroxys mal atrial fibrill ation MORALES SKINNER IE S 10/03 [facility] Outpatient Encounter [id number] 10/03 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 SA LINNETTE WALTER 10/04 [facility] Outpatient Encounter [id number] [id number] 5 10/04 [facility] REM INTERROG EVL PM/IDS [id number] [id number] 9 Diagnos is: ICD-10- CM R00.1 Bradyca rdia, 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 BRODY,CONN IE S 10/04 [facility] OFFICE O/P EST HI 40 MIN [id number] [id number] Diagnos is: ICD-10- CM E08.22 Diabete 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 FRANCISCO DAILY 10/08 [facility] Outpatient Encounter [id number] AFUA MATTHEWS RID 10/21 [facility] Outpatient Encounter [id number] [id number] 3 10/30 [facility] Outpatient Encounter [id number] [id number] 4 11/05 [facility] OT RE-EVAL EST PLAN CARE 72780-9.65 [id number] 6 Diagnos is: ICD-10- CM I89.0 Lymphed lorenza, not elsewhe re classif ied JOHNATHAN PARRA 11/18 [facility] Outpatient Encounter [id number] 11/20 [facility] OFFICE O/P EST MOD 30 MIN [id number] [id number] 5 Diagnos is: ICD-10- CM R06.00 Dyspnea , 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 AARTI GANINA 11/22 [facility] PSYTX W PT 30 MINUTES 91017-6.65 [id number] Diagnos is: ICD-10- CM 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 Junior BECERRIL [facility] O/P EST HI 40 MIN [id number] [id number] 6 Diagnos is: ICD-10- CM E10.8 Type 1 diabete s mellitu s with 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 complic RODNEY Andersen 12/12 [facility] Outpatient Encounter [id number] [id number] 12/21 [facility] Outpatient Encounter [id number] [id number] 4 12/25 [facility] INTERROG EVL PM/[place] [address]-4.65 [id number] 5 Diagnos is: ICD-10- CM I49.5 Sick sinus syndrom e MORALES SKINNER IE S 12/26 [facility] OFFICE O/P EST MOD 30 MIN 19910-6.65 [id number] 8 Diagnos is: ICD-10- CM R00.1 Bradyca rdia, 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 MORALES SKINNER IE S 12/26 [facility] Outpatient Encounter [id number] [id number] 2 Diagnos is: ICD-10- CM Q21.12 Patent foramen ovale MICHAEL,HEA THER 12/27 [facility] Outpatient Encounter [id number] [id number] 1 HERNANDO NOE 12/27 [facility] EMERGENCY DEPT VISIT LOW MDM 73342-9.65 [id number] 5 Diagnos is: ICD-10- CM S20.20X A Contusi on of thorax, 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, initial encount er HERNANDO NOE 12/27 [facility] Outpatient Encounter [id number] HERNANDO NOE CHIVO C 12/27 [facility] N [facility] PH1 ASSMT&MGMT NQHP 5-10 [id number] [id number] Diagnos is: ICD-10- CM N18.32 Chronic kidney disease , stage 3b CHUNG GARCIA 12/30 [facility] W PT 30 MINUTES [id number] [id number] Diagnos is: ICD-10- CM 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 Junior BECERRIL J 12/31 [facility] Outpatient Encounter [id number] [id number] Junior BECERRIL J 12/31 [facility] Outpatient Encounter [id number] Junior BECERRIL 12/31 [facility] PH1 ASSMT&MGMT NQHP 5-10 [id number] [id number] Diagnos is: ICD-10- CM E11.9 Type 2 diabete s mellitu s without complic atHANNA Moreira 01/03 [facility] OFFICE O/P EST SF 10 MIN [id number] Diagnos is: ICD-10- CM Z48.22 Encount er for afterca re followi ng kidney transpl ant FRANCICSO DAILY 01/14 [facility] Outpatient Encounter [id number] 01/21 [facility] PSYTX W PT 30 MINUTES 40897-3.65 [id number] Diagnos is: ICD-10- CM 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 Junior BECERRIL ERA J 01/30 [facility] 3D RENDER W/INTRP POSTPROCES [id number] [id number] Diagnos is: ICD-10- CM I27.20 Pulmona ry hyperte nsion, 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 UMAIR CANDELARIO SARI 02/06 [facility] POS AIRWAY PRESSURE CPAP [id number] [id number] [phone] Diagnos is: ICD-10- CM G47.33 Obstruc tive sleep apnea (adult) (pediat jasmin) LADY KILPATRICK OLE A 02/06 [facility] Outpatient Encounter [id number] [id number] 02/14 [facility] REM INTERROG EVL PM/LDLS PM 85562-8.65 [id number] Diagnos is: ICD-10- CM R00.1 Bradyca rdia, 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 BRODY,CONN IE S 02/14 [facility] OFFICE O/P EST SF 10 MIN [id number] [id number] Diagnos is: ICD-10- CM Z48.22 Encount er for afterca re followi ng kidney transpl ant FRANCISCO DAILY 02/18 [facility] PSYTX W PT 30 MINUTES 95107-3.65 [id number] Diagnos is: ICD-10- CM 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 OFF/OP EST JANUARY X REQ PHY/QHP 57518-9.65 [id number] Diagnos is: ICD-10- CM Z02.9 Encount er for adminis trative examina tions, 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 THOM SANDOVAL A 03/25 [facility] Outpatient Encounter [id number] [phone] [id number] THOM SANDOVALIFER A 03/26 [facility] Outpatient Encounter [id number] [id number] 03/26 [facility] PM DEVICE PROGR EVAL DUAL [id number] [id number] Diagnos is: ICD-10- CM I49.5 Sick sinus syndrom e MATT,MO LLY 03/27 [facility] OFFICE O/P EST HI 40 MIN [id number] [id number] Diagnos is: ICD-10- CM R00.1 Bradyca rdia, 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 MORALES SKINNER IE S 03/27 [facility] NQHP OL DIG ASSMT&MGMT 5-10 74641-9.65 [id number] Diagnos is: ICD-10- CM Z02.9 Encount er for adminis trative examina tions, 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 DJGRETCHEN,ELM A 04/04 [facility] SYNCH AUDIO-ONLY EST LOW 20 63388-3.65 [phone] Diagnos is: ICD-10- CM Z96.41 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 PSYTX W PT 30 MINUTES 34066-4.65 [phone] Diagnos is: ICD-10- CM 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 Junior BECERRIL 04/22 [facility] Outpatient Encounter [id number] [id number] 04/23 [facility] Social History Combined list of available smoking, tobacco, and other social history from Department of Defense and Veterans Affairs facilities. Social History Type Response Date Comment Sourc e Tobacco smoking status NHIS VA-TOBACCO NEVER USED 04/12/2024 [facility] History of tobacco use VA-TOBACCO NEVER USED 11/07/2022 [facility] History of tobacco use VA-TOBACCO NEVER USED 11/22/2021 [facility] History of tobacco use ORYX ADMIT TOBACCO SCREEN NO 03/17/2021 [facility] History of tobacco use VA-TOBACCO NEVER USED 12/18/2020 [facility] History of tobacco use ORYX ADMIT TOBACCO SCREEN NO 12/18/2020 [facility] History of tobacco use VA-TOBACCO NEVER USED 09/26/2018 [facility] History of tobacco use VA-TOBACCO NEVER USED 06/25/2018 [facility] History of tobacco use VA-TOBACCO NEVER USED 12/22/2017 [facility] History of tobacco use LIFETIME NON-USER OF TOBACCO 06/28/2017 [facility] History of tobacco use LIFETIME NON-USER OF TOBACCO 06/21/2017 non user [facility] History of tobacco use LIFETIME NON-USER OF TOBACCO 05/10/2017 never [facility] History of tobacco use LIFETIME NON-USER OF TOBACCO 02/17/2017 [facility] History of tobacco use LIFETIME NON-USER OF TOBACCO 01/14/2016 [facility] History of tobacco use LIFETIME NON-USER OF TOBACCO 11/14/2006 [facility] History of tobacco use LIFETIME NON-TOBACCO USER 11/22/2005 [facility] History of tobacco use LIFETIME NON-TOBACCO USER 12/08/2004 [facility] History of tobacco use LIFETIME NON-TOBACCO USER 07/28/2004 [facility] History of tobacco use LIFETIME NON-TOBACCO USER 07/09/2003 [facility] History of tobacco use LIFETIME NON-TOBACCO USER 06/26/2002 [facility] History of tobacco use LIFETIME NON-TOBACCO USER 05/23/2001 [facility] History of tobacco use LIFETIME NON-TOBACCO USER 06/14/2000 [facility] Plan of Care List of future care activities from Department of [facility] Affairs facilities. Additional future care activities may be listed in the Assessment and Plan section. Date/Time Care Activity Care Activity Detail Facili ty 05/19/2025 AMBULATORY - MEDICINE AMBULATORY - MEDICI NE [facility]
--- OUTSIDE RECORDS SUMMARY | 2025-05-06 16:51 | XMS_ITS | Clinical Summary ---
Author Organization [facility] Address [address] [place] [address] Care Team Providers Care Generation Technologist Name Role Phone Liliana Olivier RN Unavailable [phone] Christopher Hopkins MD Unavailable [phone] Jose Lopez MD Primary Care Provider [phone] Allergies Active Allergy Reactions Criticality Noted Date Comments Clarithromycin Nausea & Vomiting Low Hydromorphone Itching Low Ibuprofen Other (See comments) Low Kidney transplant Morphine Itching High 05/10/2007 Medications simvastatin (ZOCOR) 10 mg tablet take 1 tablet by oral route every day in the evening 0 0 6 Active melatonin 10 mg capsule 10 mg. 0 0 6 Active glucagon (glucagon) 1 mg kit inject 1 milliliter by subcutaneous route once 0 kit 0 7 Active predniSONE (DELTASONE) 5 mg tablet take 1 tablet by oral route every day 0 0 7 Active omeprazole (PriLOSEC) 40 mg capsuleIndicati ons:Treatment of Non-Bleeding Gastric Disorder Take 1 capsule (40 mg total) by mouth daily before breakfast 2 Active tamsulosin (FLOMAX) 0.4 mg extended release capsuleIndicati ons:benign prostatic hyperplasia with lower urinary tract sx Take 1 capsule (0.4 mg total) by mouth nightly 4 Active cholecalciferol (VITAMIN D-3) 2,000 unit tabletIndicatio ns:Prevention of Vitamin D Deficiency Take 0.0005 tablets (1 Units total) by mouth 2 (two) times a day 2 Active lisinopriL (PRINIVIL,ZESTR IL) 40 mg tabletIndicatio ns:hypertension Take 1 tablet (40 mg total) by mouth daily before breakfast Active apixaban (ELIQUIS) 5 mg tabletIndicatio ns:prior blood clot Take 1 tablet (5 mg total) by mouth 2 (two) times a day Active tacrolimus (PROGRAF) 1 mg immediate-relea se capsuleIndicati ons:Kidney replaced by transplant Take 1 capsule (1 mg total) by mouth 2 (two) times a day 60 capsule 11 1 Active amLODIPine (NORVASC) 5 mg tabletIndicatio ns:hypertension Take 2 tablets (10 mg total) by mouth daily before breakfast Active ferrous sulfate 325 mg (65 mg of elemental iron) tabletIndicatio ns:Iron Deficiency Anemia Take 1 tablet (325 mg total) by mouth daily with breakfast Active metoprolol (LOPRESSOR) 100 mg tabletIndicatio ns:hypertension Take 1 tablet (100 mg total) by mouth 2 (two) times a day Active sodium bicarbonate 650 mg tablet Take 1 tablet (650 mg total) by mouth 2 (two) times a day Active insulin aspart (NovoLOG) 100 unit/mL (3 mL) pen for injectionIndica tions:type 2 diabetes mellitus Inject under the skin Via insulin pump Active coenzyme Q10 (CoQ-10) 100 mg capsule Take 1 capsule (100 mg total) by mouth daily 3 Active bumetanide (BUMEX) 1 mg tablet Take 1 tablet (1 mg total) by mouth daily as needed 4 Active colestipoL (COLESTID) 1 gram tablet Take 1 tablet (1 g total) by mouth 2 (two) times a day 4 Active Active Problems Problem Noted Date Diagnosed Date Fatigue 01/03/2024 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 Pt should be ready to: - Calibrate it when needed - Give all insulin before eating - Use carbs to adjust for up or down arrows - Give insulin for snacks as well as for meals 670G can work well, but can also be problematic if the programming assumptions are violated. Assessment & Plan (08/05/2019 4:49 PM CLEANER OPERATOR): Glucose control is fair to good. It might time to consider an upgraded pump or sensor. Please find out when you are eligible for these upgrades. Diabetes Regimen - Insulin Pump Insulin Pump Type: Medtronic 530 G Insulin Type: Humalog Basal settings: Time of day: 12:00 AM Rate: 1.5 Time of day: 04:00 AM Rate: 1.5 Time of day: 21:30 Rate: 1.35 Boluses Carb Ratios: Time of Day - 12:00 am, Ratio 1:5 Time of Day - 11:30 am, Ratio 1:6 Time of Day - 17:30 pm, Ratio: 1:5 Sensitivity Index: Time of Day - 12:00 am, Adjustment 30 Blood Sugar Targets: Time of Day - 12:00 am, Target 100 - 120 Active Insulin Time: 3 hr - Annual eye exams, had exam last month. - LDL at goal (51.8 from scanned labs in Jun 2019) - Microalbumin - kidney transplant in 2011, creatinine improved on recent check - BP elevated today, advised patient to double metoprolol and lisinopril (which he is unclear if he's taking 1/2 vs 1 tab) Assessment & Plan (11/20/2018 4:24 PM CDT): Review of his pump download shows high glycemic variability and need to increase his ICR to 1:5. He can continue care at [place] and return to discuss pump upgrades. Degree of discrepancy with BG and A1c. Diabetes Regimen - Insulin Pump Insulin Pump Type: Medtronic Paradigm 722 Insulin Type: Humalog Basal settings: Time of day: 12:00 AM Rate: 1.5 Time of day: 04:00 AM Rate: 1.5 Time of day: 21:30 Rate: 1.35 Boluses Carb Ratios: Time of Day - 12:00 am, Ratio 1:7--->5 Time of Day - 11:30 am, Ratio 1:6-->5 Time of Day - 17:30 pm, Ratio: 1:5.5--->5 Sensitivity Index: Time of Day - 12:00 am, Adjustment 30 Blood Sugar Targets: Time of Day - 12:00 am, Target 100 - 120 Active Insulin Time: 3 hr Assessment & Plan (03/12/2018 11:04 PM CDT): Diabetes is worsening. Glucoses are running much too high. My recommendations are: Increase basal rates by 0.1 unit per hour Change correction scale from 1:30 to 1:25 or 1:20 to give a bit more insulin when correcting. Time to cut calories again. You have been successful with this in the past, best to take the extra pounds off before immobility becomes a major problem. Also, I strongly suggest that you [facility] about [facility] a continuous glucose sensor or CGM. I recommend the Dexcom G6, which does not require fingersticks. Discussed foot care. Diabetes will be reassessed in 6 months. Aftercare following organ transplant 07/20/2016 Obesity 05/06/2015 Assessment & Plan (02/10/2020 2:57 PM CDT): This is a limiting factor for mobility and comfort, however options for weight loss are limited. Gastric sleeve would be a consideration but Medicare does not cover it. [facility]? Medications are mostly not indicated in T1DM. Requirement for insulin complicates dieting, but carb and calorie control is sill possible and are recommended. Aim for <1800 kcal and <180 grams of carb per day. 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 Excellent kidney function. Hyperlipidemia 10/04/2011 Assessment & Plan (11/20/2018 4:25 PM CDT): LDL optimal 64 on zocor 10 mg Renal osteodystrophy 06/15/2010 Medicare annual wellness visit, subsequent 05/19 Hyperparathyroidism due to renal insufficiency 0 11/07/2006 Chronic kidney disease 09/08/2006 Diabetic polyneuropathy asso ciated with type 1 diabetes mellitus 09/08/2006 Assessment & Plan (06/23/2020 9:45 PM CDT): 65 y.o. male with type 1 diabetes mellitus, on insulin pump (Medtronic 630G with Guardian), poorly-controlled, complicated by peripheral neuropathy with diabetic foot ulcer, diabetic nephropathy, retinopathy, hypertension, hyperlipidemia, cardiovascular disease, obesity, thyroid Recent HgbA1C = 7.5% No episodes of hypoglycemia Adherent with medications and BG monitoring Plan: 1) Continue Medtronic 630G pump with Guardian with following considerations: Auto Mode is only 62% Resevior change: every 6.5 days (seems too long) TDD = 51 units; consider increasing basal and bolus rates Expected TDD 65-70 units given weight Under-counting daily carbs (105 +/- 29 grams per day) 2) Monitoring Hgb A1C, basic metabolic panel, lipid profile Urinary microalbuminuria Retinal examination - Ophthalmology Foot care evaluation Vaccinations: Influenza (yearly), Tdap, Hepatitis B, VZV Assessment & Plan (02/10/2020 2:12 PM CDT): Pt asked about getting what looks like a nerve stimulator from on-line, [employer]. The cost is ~$1,000; and it is not FDA approved. We discussed the low likelihood of him getting sensation back in his lower extremities and the extent of nerve damage. Of note, his first foot ulcer was in the 1990s, so decades of neuropathy and damage. I am dubious about this device and would recommend it only for those with money to spend/waste on products with unlikely benefits. Assessment & Plan (08/05/2019 4:50 PM CLEANER OPERATOR): Foot care is critical. Please check your feet 2X per day for now and call if the left great toe problem does not resolve, or appears to become infected. [facility] with [facility] about referral to PT for balance training. Assessment & Plan (11/20/2018 4:28 PM CDT): He has limited sensation in his feet and advised proper foot care and continued follow up with podiatry. The right heal wound has improved with treatment. Assessment & Plan (03/12/2018 11:05 PM CDT): Diabetes is worsening. Discussed foot care. Diabetes will be reassessed in 6 months. Get a cane, your balance is terrible. You are highly likely to fall and are not immune from fractures. Diabetic retinopathy 09/08/2006 Assessment & Plan (01/19/2021 9:56 PM CDT): If any active proliferative retinopathy, should have eyes checked before anti-coagulation. Hypertension 09/08/2006 Assessment & Plan (02/10/2020 2:13 PM CDT): BP is better, metoprolol was increased. Assessment & Plan (08/05/2019 4:52 PM CLEANER OPERATOR): BP is way too high. Pt is unclear about scheduled doses of lisinopril and metoprolol. I recommend taking 10 mg of lisinopril (he may be taking 1/2 of a pill) and doubling the metoprolol. He has an appointment with [facility] physicians, will recheck BP. Assessment & Plan (03/12/2018 11:06 PM CDT): Hypertension is improving with treatment. Weight loss. Blood pressure will be reassessed at the next regular appointment. Resolved Problems Problem Noted Date Diagnosed Date Resolved Date Dyspnea on exertion 07/20/2015 12/07/19 23 Assessment & Plan (11/20/2018 4:26 PM CDT): Being evaluated via stress test and [facility] pacemaker [facility] Encounters Date Type Department Care Team Description 05/06/2025 Telephone [facility] Family Medicine at [address] [place] [address] Jose Lopez MD orientation cardio rehab 04/09/2025 Telephone [facility] Medicine at [address] [place] [address] Jose Lopez MD Cardiac Rehab 03/17/2025 8:40 AM CDT Office Visit [facility] Endocrinology Metabolism and Lipid [address] [place] [address] [place] [address] Candace Jeter MD 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) (Primary Dx) from Last 3 Months Immunizations Immunization Administration Dates Next Due COVID-19 mRNA (gogamingo) 0.3 m L (30 mcg) vaccine (12 years and up) 07/18/2024,06/16/2023 Influenza, Quadrivalent, Hig h Dose, Preservative Free, Intrr 06/09/2023,07/18/2022,06/30/2021,06/08 Influenza, Quadrivalent, Spl it, Preservative Free, Intramuscular 06/13/2019 Influenza, Trivalent, High D ose, Split, Preservative Free, Intramuscular 07/18/2024 Influenza, Trivalent, IM (MDV) 06/07/2017 Influenza, Trivalent, Preser vative Free, Intramuscular 06/12/2016,06/28/2015,06/18/2012,06/29,07/01/2008 Influenza, Unspecified 06/11/2022,2020,06/08/2018,06/09,06/11/2016,06/11/2015,07/17/2014 ,07/12/2013,06/18/2012,06/16/2011,04/2010,06/29/2009,07/01/2008, 7,08/25/2006,07/05/2005,06/30/2004,01/2002,07/11/2001,07/04/1996 Moderna Sars-cov-2 Bivalent Vaccine 50 Mcg/0.5 mL (12+ YRS)-Blue/Horner 05/31/2022 Pfizer SARS-CoV-2 Monovalent Vaccination (12+ Yrs) PURPLE 05/01/2021,10/22/2020,10/01/2020 Pneumococcal Conjugate PCV 13 05/12/2015, 014 Pneumococcal Polysaccharide PPV23 2022,12/22/2017,07/20/2015,03/11,01/01/2008 RSV Vaccine, Pref, Recombina nt, Subunit, Adjuvanted, PF, IM (Arexvy) 08/31/2023 Tdap 05/09/2019,09/11/2008 ZOSTER Recombinant 2022,12/27/2021 Surgical History Surgery Date Site/Laterality Comments APPENDECTOMY 09/11/2006 - 09/10/2007 Appendectomy CATARACT EXTRACTION 09/11/2000 - 09/10/2001 Cataract extraction VITRECTOMY 09/11/1995 - 09/10/1996 Right vitrectomy right eye KIDNEY TRANSPLANT 09/11/2011 - 09/10/2012 kidney transplant OTHER SURGICAL HISTORY 09/11/2015 - 09/10/2016 tibial plateau fx left ROTATOR CUFF REPAIR 09/11/2004 - 09/10/2005 CARDIAC PACEMAKER PLACEMENT 09/11/2018 - 09/10/2019 CATARACT EXTRACTION 2000; 2003 ORGAN TRANSPLANT 2011 Medical History Medical History Date Comments Anemia Anemia; Comments : 09/14/2016 - Hypertension Hypertension Depression Depression Hx Other Medical gerd; Comments: 09/14/2016 - Hx Other Medical kidney failure; Comments: 09/14/2016 - Hx Other Medical diabetes; Comme nts: 09/14/2016 - Hx Other Medical neuropathy; Com ments: 09/14/2016 - Hypercholesterolemia High choles terol; Comments: 09/14/2016 - Hx Other Medical poor circulatio n; Comments: 09/14/2016 - Hx Other Medical blood clots in leg; Comments: 09/14/2016 - Personal history of healed t raumatic fracture History of fracture of tibia - left, September 09, 2016 (Added by TW Conv) GERD (gastroesophageal reflux disease) 2007 Benign prostatic hyperplasia 2010 Cataract Late Diabetes mellitus (HCC) 1979 Chronic kidney disease Mid 1990s Sleep apnea Early 1999s Family History Medical History Relation Name Comments Diabetes Brother Madi Cancer Father Willian Cancer, unknown ; Cancer Mother Lashaun Arthritis Other 1 Family history of arthritis; Diabetes Other 2 Family history of diabetes; Diabetes type I Other 3 Type 1 Diabe denny Mellitus - brother, and brother's son (Added by TW Conv) Cancer Sister Pippa Anesthesia problems Neg Hx Relation Name Status Comments Brother Madi Father Willian Mother Lashaun Other 1 Other 2 Other 3 Sister Pippa Social History Tobacco Use Types Packs/Day Years Used Date Smoking Tobacco: Never Smokeless Tobacco: Never Tobacco Cessation:Counseling Given: Not Answered AUDIT-C Answer Date Recorded Q1: How often do you have a drink containing alc ohol? Monthly or less 10/21/2024 Q2: How many drinks containi ng alcohol do you have on a typical day when you are drinking? 1 or 2 10/21/2024 Frequency of Binge Drinking Not on file 10/12 PHQ-2 Answer Date Recorded PHQ-2 Total Score (If total score is 3 or more points, staff should administer the PHQ-9) 2 01/09/2025 PHQ-9 Answer Date Recorded PHQ-9 Total Score 8 06/27/2024 Sex and Gender Information Value Date Recorded Sex Assigned at Not on file Legal Sex Male 1:23 AM CLEANER OPERATOR Gender Identity Male 08/27/2021 3:27 PM CLEANER OPERATOR Sexual Orientation Straight 08/27/2021 3: 27 PM CLEANER OPERATOR Obstetrics History Last Filed Vital Signs Vital Sign Reading Time Taken Comments Blood Pressure 137/70 03/17/2025 8:33 AM CDT Pulse 78 03/17/2025 8:33 AM CDT Temperature 36.8 C (98.2 F) 03/17/2025 8:33 AM CDT Respiratory Rate 18 01/03/2024 10:42 AM CDT Oxygen Saturation 95% 01/09/2025 1:11 PM CDT Inhaled Oxygen Concentration - - Weight 97.1 kg (214 lb) 03/17/2025 8:33 AM CDT Height 180.3 cm (5' 11) 03/17/2025 8:33 AM CDT Body Mass Index 29.85 03/17/2025 8:33 AM CDT Plan of Treatment Health Maintenance Due Date Last Done Comments Foot Exam 1955 Hepatitis C Screening 1954 Hepatitis B Screening 1972 eGFR 10/20/2022 10/20/2021, 05/0 09/2018, 01/04/2019, Additional history exists TSH Level 12/31/2024 01/01/2024, 02/10/2017 Covid-19 Vaccine (8 - Pfizer risk season) 2025 07/18/2024, 06/16/2023, 05/31/2022, Additional history exists Influenza Vaccine (#1) 2025 , 06/09/2023, 07/18/2022, Additional history exists Fall Risk Assessment 07/04/2025 07/04/2024, 07/03/2023, 06/30/2022 Well Visit 65+ 07/04/2025 07/04/2024, 07/03/2023 Albumin Creatinine Ratio, Urine 08/01/2025 Lipid Panel 08/01/2025 08/01/2024, 05/13, 10/20/2021, Additional history exists Hemoglobin A1C 09/17/2025 03/17/2025, 05/14, 12/13/2023, Additional history exists Depression Screening 01/09/2026 01/09/2025, 07/04/2024, 07/04/2024, Additional history exists Dilated Eye Exam 03/24/2026 03/24/2025, , 01/31/2022 Colon Cancer Screening-Colonoscopy 08/22/2026 08/22/2023 DTaP/Tdap/Td Vaccine (3 - Td or Tdap) 05/09/2029 05/09/2019, 09/11/2008 Zoster Vaccine Completed 2022, 12/27/2021 Prostate Cancer Screening-PSA Discontinued , 05/15/2019, 05/03/2018, Additional history exists Pneumococcal vaccine 65+ Completed 023, 12/22/2017, 07/20/2015, Additional history exists Colon Cancer Screening-CT Colonography Discontinued 08/22/2023 Colon Cancer Screening-DNA Stool Discontinued 08/22/20 Colon Cancer Screening-FIT Discontinued 08/22/2023 Colon Cancer Screening-Sigmoidoscopy Discontinued 08/22/2023 Procedures Procedure Name Priority Date/Time Associated Diagnosis Comments DIABETIC EYE EXAM Routine 03/24/2025 POCT HEMOGLOBIN A1C Routine 03/17/2025 8 :38 AM CDT 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) POCT GLUCOSE [id number] Routine 03/17/2025 8: 37 AM CDT 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) LIPID PANEL Routine 08/01/2024 8:49 AM CLEANER OPERATOR Mixed hyperlipidemia ALBUMIN CREATININE RATIO, URINE Routine 08/01/2024 8:49 AM CLEANER OPERATOR 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) THYROID FUNCTION CASCADE Routine 01/01/2024 8:57 AM CDT Fatigue, unspecified type COLONOSCOPY Routine 08/22/2023 PSA SCREEN Routine 06/06/2022 9:29 AM CDT Prostate cancer screening EGFR Routine 10/20/2021 8:45 AM CLEANER OPERATOR Type 1 diabetes mellitus with proliferative retinopathy and macular edema, unspecified laterality (HCC) from Last 3 Months or Most Recently Relevant to Health Maintenance Results * (ABNORMAL) Diabetic Eye Exam (03/24/2025) Emily De La Rosa MD HEALTH MAINTENANCE Final Result * (ABNORMAL) POCT hemoglobin A1c (03/17/2025 8:38 AM CDT) Hemoglobin A1C, POC 7.9(A) 4.0 - 5.6 % Blood 03/17/2025 8:38 AM CDT us Candace Jeter MD POINT OF CARE TEST ORDERABLES Final Result * POCT glucose (03/17/2025 8:37 AM CDT) Glucose Blood, POC 119 Normal Fasting 70 - 100, Random <200 mg/dL Comment:finger stick Blood 03/17/2025 8:37 AM CDT us Candace Jeter MD POINT OF CARE TEST ORDERABLES Final Result * Albumin Creatinine Ratio, Urine (08/01/2024 8:49 AM CLEANER OPERATOR) Albumin Ur <12.0 mg/L Comment: Interpretive Data No reference range established. Current interpretive data was last revised 2019. Creatinine Ur 113.6 mg/dL [facility] Comment: Interpretive Data No reference range established. Current interpretive data was last revised 2019. Albumin Creatinine Ratio, Ur <11 1 - 29 mg/g [facility] Urine 08/01/2024 8:49 AM CLEANER OPERATOR 08/01/2024 6:13 PM CLEANER OPERATOR Jose Lopez MD LAB URINE ORDERABLES Final Re sult [facility] [address] [facility] [place] [address] * Lipid panel (08/01/2024 8:49 AM CLEANER OPERATOR) Cholesterol 101 30 - 199 mg/dL Comment: Interpretive Data Ages < or = 19 years Acceptable: <170 mg/dL Borderline high: 170-199 mg/dL High: >or= 200 mg/dL Ages > or = 20 years Desirable: <200 mg/dL Borderline high: 200-239 mg/dL High: >or= 240 mg/dL Literature References: 1. Expert Panel on Integrated Guidelines for Cardiovascular Health and Risk Reduction in Children and Adolescents. Pediatrics 2011;128:S213 2. NCEP Expert Panel. Circulation 2004;110:227 Current Interpretive Data was last revised on 2018. Triglycerides 82 <=149 mg/dL [facility] Comment: Interpretive Data Ages < or = 9 years Acceptable: <75 mg/dL Borderline high: 75-99 mg/dL High: >or= 100 mg/dL Ages 10 to 20 years Acceptable: <90 mg/dL Borderline high: 90-129 mg/dL High: >or= 130 mg/dL Ages > or = 20 years Desirable: <150 mg/dL Borderline high: 150-199 mg/dL High: 200-499 mg/dL Very high: >or= 499 mg/dL Literature References: 1. Expert Panel on Integrated Guidelines for Cardiovascular Health and Risk Reduction in Children and Adolescents. Pediatrics 2011;128:S213 2. NCEP Expert Panel. Circulation 2004;110:227 Current Interpretive Data was last revised on 2018. HDL 42 >=40 mg/dL [facility] Comment: Interpretive Data Ages < or = 19 years Acceptable: >45 mg/dL Borderline low: 40-45 mg/dL Low: <40 mg/dL Ages > or = 20 years Desirable: >or= 60 mg/dL Low: <40 mg/dL Literature References: 1. Expert Panel on Integrated Guidelines for Cardiovascular Health and Risk Reduction in Children and Adolescents. Pediatrics 2011;128:S213 2. NCEP Expert Panel. Circulation 2004;110:227 Current Interpretive Data was last revised on 2018. LDL, calculated 42 <=129 mg/dL [facility] Comment: Interpretive Data Ages < or = 19 years Acceptable: <110 mg/dL Borderline high: 110-129 mg/dL High: >or= 130 mg/dL Ages > or = 20 years Optimal: <100 mg/dL Near optimal: 100-129 mg/dL Borderline high: 130-159 mg/dL High: >160 mg/dL Calculated using the Kemal LDL-C estimating equation. This equation was implemented on 2024. Prior to this date LDL-C was estimated using the Friedewald equation. Literature References: 1. Expert Panel on Integrated Guidelines for Cardiovascular Health and Risk Reduction in Children and Adolescents. Pediatrics 2011;128:S213 2. NCEP Expert Panel. Circulation 2004;110:227 3. Kemal Gonzalez et al. MOE Cardiol. 2020 January 09;5(5):540-548. doi: 10.1001/jamacardio.2020.0013 Current Interpretive Data was last revised on 2024. Non-HDL Cholesterol 59 mg/dL [facility] Comment: Interpretive Data Ages < or = 19 years Acceptable: <120 mg/dL Borderline high: 120-144 mg/dL High: >145 mg/dL Ages > or = 20 years When triglycerides are >200 mg/dL, Non-HDL cholesterol is a secondary target of therapy with treatment goals that are 30 mg/dL greater than the LDL cholesterol target. Literature References: 1. Expert Panel on Integrated Guidelines for Cardiovascular Health and Risk Reduction in Children and Adolescents. Pediatrics 2011;128:S213 2. NCEP Expert Panel. Circulation 2004;110:227 Current Interpretive Data was last revised on 2018. Chol/HDL ratio [address] [facility] Blood 08/01/2024 8:49 AM CLEANER OPERATOR 08/01/2024 6:13 PM CLEANER OPERATOR Jose Lopez MD LAB BLOOD ORDERABLES Final Re sult Performing Organization Address [facility] Co de Phone Number [facility] [id number] [facility] [place] [address] * Thyroid Function [place] (01/01/2024 8:57 AM CDT) TSH 3.35 0.30 - 4.20 mcIUnit/mL Blood 01/01/2024 8:57 AM CDT 01/01/2024 2:17 PM CDT Jose Lopez MD LAB BLOOD ORDERABLES Final Re sult Performing Organization Address [facility] de Phone Number [facility] [id number] [facility] [place] [address] * Colonoscopy (08/22/2023) Anatomical Region Laterality Modality Other Result [facility] Provider ENDOSCOPY PROCEDURES Madai l Result * PSA screen (06/06/2022 9:29 AM CDT) PSA-Total 0.75 <=5.40 ng/mL [facility] Comment: Interpretive Data AGE SEX REFERENCE INTERVAL 0 minutes-150 years Female None 0 minutes-49 years Male None 50-59 years Male 0-3.90 60-69 years Male 0-5.40 70-79 years Male 0-6.20 80-150 years Male 0-6.20 The Teena PSA Total assay procedure was used. Results from different manufacturers or methods may not be comparable. Serial testing should be performed using the same method. Current interpretive data last revised 22. Blood 06/06/2022 9:29 AM CDT 06/06/2022 4:25 PM CDT Jannette Yannawilly Rhodes STAMPING MACHINE OPERATOR LAB BLOOD ORDERABLES Fi nal Result [facility] [address] Department [place] [address] * eGFR (10/20/2021 8:45 AM CLEANER OPERATOR) eGFR 46 mL/min/1. 73 m2 [facility] Comment: Interpretive Data Reference Interval Normal >/= 90 mL/min/1.73m2 Mildly decreased* 60 - 89 mL/min/1.73m2 Mildly to moderately decreased 45 - 59 mL/min/1.73m2 Moderately to severely decreased 30 - 44 mL/min/1.73m2 Severely decreased 15 - 29 mL/min/1.73m2 Kidney Failure < 15 mL/min/1.73m2 *Relative to young adult level Estimated glomerular filtration rate is determined by the 2020 CKD-EPI equation recommended by the National Kidney Foundation (A Unifying Approach to GFR Estimation: Recommendations of the NKF-ASK Task Force on Reassessing the Inclusion of Race in Diagnosing Kidney Disease, JASN 2020). The CKD-EPI equation should not be used for patients with unstable renal function and has not been validated in children and those over 70. Current interpretive data was last reviewed 2021. Blood 10/20/2021 8:45 AM CLEANER OPERATOR 10/20/2021 3:10 PM CLEANER OPERATOR Marquis You DO LAB BLOOD ORDERABLES Final Resul t [facility] [address] [address] Department [place] [address] from Last 3 Months or Most Recently Relevant to Health Maintenance Insurance MEDICARE COMMERCIAL GENERIC [facility] OFFICE [facility] CARE MEDICARE COMMERCIAL GENERIC MEDICARE COMMERCIAL GENERIC Care Teams Generation Technologist Relationship Specialty Start Date End Date Jose Lopez MD [address] [facility] [address] [address] PCP - General Family Medicine 03/23/23 Liliana Olivier, HUEY Group Program Manager 03/19/20 Christopher Hopkins MD Surgeon Orthopedic Surgery 06/30/22
--- OUTSIDE RECORDS SUMMARY | 2025-05-06 16:51 | XMS_ITS | Encounter Summary ---
Author Organization [facility] Healthcare Address [address] [place] [address] Care Team Providers Care Automatic Machine Attendant Name Role Phone Liliana Olivier RN Unavailable Christopher Hopkins MD Unavailable [phone] Jose Lopez MD Primary Care Provider [phone] Reason for Visit * Reason Onset Date Comments orientation cardio rehab 05/06/2025 Encounter Details Date Type Department Care Team (Late st Contact Info) Description 05/06/2025 Telephone [facility] Medical Group Family Medicine at [address] [place] [address] Jose Lopez MD [address] [place] [id number] orientation cardio rehab Social History Tobacco Use Types Packs/Day Years Used Date Smoking Tobacco: Never Smokeless Tobacco: Never AUDIT-C Answer Date Recorded Q1: How often [...] on file Legal Sex Male 1:23 AM PILE FABRIC KNITTER Gender Identity Male 08/27/2021 3:27 PM PILE FABRIC KNITTER Sexual Orientation Straight 08/27/2021 3: 27 PM PILE FABRIC KNITTER documented as of this encounter Miscellaneous Notes * Telephone Encounter - Velvet Pino Ma, MA - 05/06/2025 4:18 PM CDT Tsering with [facility] Cardiopulmonary Rehab called stating patient showed V tach a few times today at his orientation. HR 120's, BP 110/60 and 100/60 during episodes. Patient did not become unstable. [facility] Lopez patient should go to ER. Tsering and patient aware. Patient verbalized understanding. [facility] [phone]. documented in this encounter Plan of Treatment Not on file documented as of this encounter Visit Diagnoses Not on filedocumented in this encounter Care Teams Automatic Machine Attendant Relationship Specialty Start Date End Date Jose Lopez MD [address] [facility] [address] [address] PCP - General Family Medicine 03/23/23 Liliana Olivier, RN French Lecturer 03/19/20 Christopher Hopkins MD Surgeon Orthopedic Surgery 06/30/22 documented as of this encounter
--- OUTSIDE RECORDS SUMMARY | 2025-05-06 16:51 | XMS_ITS | Encounter Summary ---
Author Organization [facility] Healthcare Address [address] [place] [address] Care Team Providers Care Low Altitude Air Defense Officer Name Role Phone Liliana Olivier RN Unavailable [phone] Christopher Hopkins MD Unavailable [phone] Jose Lopez MD Primary Care Provider [phone] Encounter Details Date Type Department Care Team (Late st Contact Info) Description 05/21/2024 Orders Only [facility] Health Information Management [address] [place] [address] Jose Lopez MD [facility] [address] [address] Social History Tobacco Use Types Packs/Day Years Used Date Smoking Tobacco: Never Smokeless Tobacco: Never AUDIT-C Answer Date Recorded Frequency of Alcohol Consumption Not on file 01/03/2024 Q2: How many drinks containi ng alcohol do you have on a typical day when you are drinking? Patient does not drink Frequency of Binge Drinking Not on file 12/11 PHQ-2 Answer Date Recorded PHQ-2 Total Score (If total score is 3 or more points, staff should administer the PHQ-9) 4 06/28/2023 Sex and Gender Information Value Date Recorded Sex Assigned at Not on file Legal Sex Male 1:23 AM VALVE INSPECTOR Gender Identity Male 08/27/2021 3:27 PM VALVE INSPECTOR Sexual Orientation Straight 08/27/2021 3: 27 PM VALVE INSPECTOR documented as of this encounter Plan of Treatment Not on file documented as of this encounter Procedures Procedure Name Priority Date/Time Associated Diagnosis Comments CARDIOLOGY DOCUMENT SCAN 05/21/2024 documented in this encounter Results * Cardiology Document Scan (05/21/2024) Anatomical Region Laterality Modality Other Jose Lopez MD CV CARDIAC SERVICES PROCEDURE S Final Result documented in this encounter Visit Diagnoses Not on filedocumented in this encounter Care Teams Low Altitude Air Defense Officer Relationship Specialty Start Date End Date Jose Lopez MD [address] [facility] [address] [address] PCP - General Family Medicine 03/23/23 Liliana Olivier, RN Fireworks Assembly Supervisor 03/19/20 Christopher Hopkins MD Surgeon Orthopedic Surgery 06/30/22 documented as of this encounter
--- NOTE | 2025-05-06 17:04 | PC.NURSE ---
Unable to safely get standing weight while in triage. Pt. is a&Ox4 and reports they just weighed me at the cardiac rehab. Weight charted.
--- NOTE | 2025-05-06 19:08 | ECG_ITS ---
Test Date: 2025-05-06 20:54:38 Measurements Intervals [place] Rate: 60 P: 140 MA: 230 QRS: 13 QRSD: 84 T: 45 QT: 386 QTc: 386 Interpretive Statements ELECTRONIC ATRIAL PACEMAKER EARLY PRECORDIAL R/S TRANSITION BASELINE ARTIFACT- I, II, III, AVR, AVL, V1-V2 BORDERLINE ECG No previous ECG available for comparison Electronically Signed On 05-07-2025 06:35:54 CDT by Zach Conde D.O.
--- NOTE | 2025-05-06 19:23 | ED.GENADULT ---
HPI - General Adult General Chief complaint: Recheck/Abnormal Lab/Rx Stated complaint: abnormal ekg Time Seen by Provider: 05/06/25 19:04 History of Present Illness HPI narrative: Patient is a 70-year-old male who presents to the emergency department this evening after being sent in from his cardiac rehab facility. Patient states that he has a history of pulmonary arterial hypertension. He was on the elliptical today and had a run of V-tach. Patient states that while this happened, he felt fine and he states that he has been feeling a great and has no complaints or symptoms. He was prompted to come here to get checked out so that is why he is here. Denies any active chest pain or shortness of breath, any nausea vomiting abdominal pain, any recent illness fevers or chills. There are no additional modifying, alleviating, or precipitating factors at this time. Related Data Home Medications ?Medication ?Instructions ?Recorded ?Confirmed ?Last Taken ?Type insulin aspart U-100 100 unit/mL 10/16/20 10/25/21 05/06/25 History subcutaneous solution (Novolog U-100 Insulin aspart) lisinopril 40 mg tablet 40 mg PO DAILY 10/16/20 05/06/25 05/06/25 History melatonin 10 mg tablet 10 mg PO HS PRN Sleep 10/16/20 05/06/25 05/05/25 History metoprolol succinate 25 mg 25 mg PO DAILY 10/16/20 05/06/25 Unknown History tablet,extended release 24 hr prednisone 5 mg tablet 5 mg PO DAILY 10/16/20 05/06/25 05/06/25 History simvastatin 10 mg tablet (Zocor) 10 mg PO DAILY 10/16/20 05/06/25 05/06/25 History tacrolimus 1 mg capsule, 1 mg PO Q12H 10/16/20 05/06/25 05/06/25 History immediate-release (Prograf) tamsulosin 0.4 mg capsule 0.4 mg PO DAILY 10/16/20 05/06/25 05/06/25 History apixaban 2.5 mg tablet (Eliquis) 2.5 mg PO BID 04/29/21 05/06/25 05/06/25 07:00 History cholecalciferol (vitamin D3) 50 50 mcg PO DAILY 04/29/21 05/06/25 05/06/25 History mcg (2,000 unit) capsule metoprolol succinate 50 mg 50 mg PO BID 10/25/21 05/06/25 05/06/25 History tablet,extended release 24 hr omeprazole magnesium 20 mg 40 mg PO DAILY 10/25/21 05/06/25 05/06/25 History capsule,delayed release (Acid Ribbon Winder (omeprazole)) sodium bicarbonate 650 mg tablet 650 mg PO DAILY PRN stomach upset 10/25/21 05/06/25 05/06/25 History Allergies Allergy/AdvReac Type Severity Reaction Status Date / Time morphine Allergy Unknown Itching Verified 05/06/25 17:04 clarithromycin (From Biaxin) AdvReac Intermediate Nausea Verified 05/06/25 17:04 Review of Systems Review of Systems: All systems are reviewed and are negative unless stated otherwise in the HPI. 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 HEENT: PERRL, no rhinorrhea, no post nasal drip, oropharynx clear. Neck: Trachea midline, no JVD, no lymphadenopathy. Cardiovascular: Regular rate and rhythm, no murmurs, rubs or gallops, no peripheral edema. Respiratory: Clear to auscultation bilaterally, no tachypnea, no wheezing, no rhonchi, no rubs, no respiratory distress. Abdomen: Soft, nontender, nondistended, no rebound, no guarding, no peritoneal signs. Musculoskeletal: No joint swelling or deformity, normal muscle tone. Skin: No rashes or petechia, no signs of infection. Psychiatric: Alert and oriented, normal behavior and judgment for situation. Neurological: Alert and oriented to person, place, and time. Follows all commands. No focal deficits, speech is clear and fluent. Course Vital Signs Vital signs: Vital Signs Temperature 97.6 F 05/06/25 16:58 Pulse Rate 69 05/06/25 16:58 Respiratory Rate 16 05/06/25 16:58 Blood Pressure 137/34 L 05/06/25 16:58 Pulse Oximetry 99 05/06/25 16:58 Oxygen Delivery Room Air 05/06/25 16:58 Temperature 97.6 F 05/06/25 16:58 Pulse Rate 66 05/06/25 22:32 Respiratory Rate 15 05/06/25 22:32 Blood Pressure 135/61 05/06/25 22:32 Pulse Oximetry 99 05/06/25 22:32 Oxygen Delivery Room Air 05/06/25 16:58 Medical Decision Making MDM Narrative Medical decision making narrative: The patient was evaluated by myself in the emergency department. History is obtained from patient who is an independent historian and physical exam was performed. External medical records were reviewed at this time. IV was established and pertinent tests were ordered. EKG was obtained which revealed a paced rhythm rate of 60 beats per minute, no evidence of arrhythmia or of acute ischemia. EKG was independently interpreted by me and is currently pending official cardiology read. patient space maker was interrogated and it did show an episode of sustained ventricular tachycardia. Blood work was obtained at this time and independently interpreted by me revealing hypokalemia with potassium of 5.5 otherwise unremarkable. Patient's creatinine is slightly elevated at 1.74, unsure of his baseline as there are no previous blood work to trend. patient was administered 10 units of IV insulin, 25 g of IV dextrose and 1 g of IV calcium gluconate for his hyperkalemia. Hypoglycemia protocol ordered. Imaging results obtained included a chest x-ray which was inability interpreted by me revealing: IMPRESSION: 1. Mild linear discoid atelectasis/scarring at the right lung base. No acute cardiopulmonary disease. 2. Subtle mild kink in the course of the ventricular lead of a dual-lead cardiac pacemaker of indeterminate significance. At this time case discussed with the on-call staff for cardiology service at the [place] at [address], who information will notify the patient's CT PE in the morning as there are no EP physicians on-call this evening, and agrees with my recommendation to admit the patient for observation and telemetry to make sure that he does not go into another V-tach episode. Case was discussed with the on-call and CHILD CENTER ASSISTANT for the hospitalist Yung who accepted admission but wanted case discussed with the on-call floor steward/stewardess. Case was discussed with Dr. Barkley at 2251 who agreed to evaluate the patient. Comorbidities impacting this visit include none. I have evaluated and discussed social determinants of health with the patient that could potentially impact subsequent diagnosis and treatment plans. On repeat assessment of the patient, reevaluation revealed that the patient is doing well and is in no acute distress. Patient symptoms have improved since he arrived to our emergency department. Repeat vital signs were all reviewed and noted to be stable. Differential diagnosis and treatment plan were discussed with the patient at bedside. Patient agrees with discussion and after shared medical decision making agrees with admission. All questions were answered to the patient's satisfaction. Critical care time of 55 minutes, exclusive of separately performed procedures, necessary for treating or preventing eminent or life-threatening deterioration of patient's condition of hyperkalemia requiring IV insulin therapy, focused on patient care provided personally by me and time spent during initial evaluation, physical examination, ordering and performing treatments and interventions, ordering and reviewing laboratory studies, ordering and reviewing radiographic studies, re-evaluation of the patient's condition, evaluation of the patient's response to treatment, and discussion of patient case with multiple consultants. Vital Signs Vital Signs: Vital Signs Temperature 97.6 F 05/06/25 16:58 Pulse Rate 69 05/06/25 16:58 Respiratory Rate 16 05/06/25 16:58 Blood Pressure 137/34 L 05/06/25 16:58 Pulse Oximetry 99 05/06/25 16:58 Oxygen Delivery Room Air 05/06/25 16:58 Temperature 97.6 F 05/06/25 16:58 Pulse Rate 66 05/06/25 22:32 Respiratory Rate 15 05/06/25 22:32 Blood Pressure 135/61 05/06/25 22:32 Pulse Oximetry 99 05/06/25 22:32 Oxygen Delivery Room Air 05/06/25 16:58 Lab Data 05/06/25 20:14 05/06/25 20:14 Labs: Lab Results 05/06/25 Range/Units 20:14 WBC 6.3 (4.5-10.0) K/mm3 RBC 4.31 L (4.6-6.20) M/mm3 Hgb 13.0 L (14.0-18.0) g/dL Hct 38.6 L (42.0-52.0) % MCV 89.6 (80-100) fl MCH 30.2 (26-34) pg MCHC 33.7 (32-36) g/dl RDW 13.2 (11.5-14.5) % Plt Count 161 (150-375) k/mm3 MPV 9.2 (7.4-10.4) fl Immature Gran % (Auto) 0.3 (0-0.5) % Neut % (Auto) 69.9 (45.5-73.1) % Lymph % (Auto) 19.0 (18.3-44.2) % [place] % (Auto) 7.3 (2.6-8.5) % Eos % (Auto) 2.4 (0-4.4) % Baso % (Auto) 1.1 (0.2-1.2) % Lymph # (Auto) 1.20 (0.9-3.2) K/mm3 [place] # (Auto) 0.5 (0.1-0.6) K/mm3 Eos # (Auto) 0.2 (0-0.3) K/mm3 Baso # (Auto) 0.1 (0.0-0.1) K/mm3 Abs Immat Gran (auto) 0.02 (0.00-0.031) K/mm3 Absolute Neuts (auto) 4.4 (1.3-6.7) K/mm3 Absolute Nucleated RBC 0.000 (0.0-0.012) K/mm3 Nucleated RBC % 0.0 (0.0-0.2) % PT 15.8 H (11.1-14.7) Seconds INR 1.3 APTT 25.8 (22.3-36.8) Seconds Sodium 135 L (137-145) mmol/L Potassium 5.5 H (3.4-5.0) mmol/L Chloride 107 (98-107) mmol/L Carbon Dioxide 21 L (22-30) mmol/L Anion Gap 7 (4-12) mmol/L BUN 39 H (9-20) mg/dL Creatinine 1.74 H (0.7-1.3) mg/dL Estim Creat Clear Calc 39 ml/min Estimated GFR 39 L (59 - ) Glucose 169 H (65-110) mg/dL Calcium 9.3 (8.4-10.2) mg/dL Magnesium 1.9 (1.6-2.3) mg/dL Total Bilirubin 1.3 (0.2-1.3) mg/dL AST 24 (17-59) U/L ALT 27 (6-50) U/L Alkaline Phosphatase 78 (38-126) U/L Troponin I < 0.012 (0.000-0.034) ng/mL NT-Pro-B Natriuret Pep 774 H (19.9-100) pg/mL Total Protein 6.6 (6.3-8.2) g/dL Albumin 4.0 (3.5-5.1) g/dL Lipase 12 L (23-300) U/L Critical Care Time Critical Care Time Critical Care Time: Yes Total Critical Care Time: 55 ( Please refer to [facility] for attestation.) Discharge Plan Discharge Clinical Impression: Acute hyperkalemia, Ventricular tachycardia (paroxysmal) Patient Disposition: Still a Patient Condition: Improved Patient Language: Romanian Prescriptions: No Action simvastatin [Zocor] 10 mg Tablet 10 mg PO DAILY prednisone 5 mg Tablet 5 mg PO DAILY metoprolol succinate 25 mg Tablet Extended Release 24 Hr 25 mg PO DAILY tacrolimus [Prograf] 1 mg Capsule 1 mg PO Q12H tamsulosin 0.4 mg Capsule 0.4 mg PO DAILY Patient Comments: 2 caps at night insulin aspart U-100 [Novolog U-100 Insulin aspart] 100 unit/mL Solution lisinopril 40 mg Tablet 40 mg PO DAILY melatonin 10 mg Tablet 10 mg PO HS PRN (Reason: Sleep) omeprazole magnesium [Acid Ribbon Winder (omeprazole)] 20 mg capsule,delayed release(DR/EC) 40 mg PO DAILY sodium bicarbonate 650 mg tablet 650 mg PO DAILY PRN (Reason: stomach upset) Patient Comments: taking 2 tablets BID metoprolol succinate 50 mg tablet extended release 24 hr 50 mg PO BID Patient Comments: Patient states he takes 100 mg BID Eliquis 2.5 mg tablet 2.5 mg PO BID cholecalciferol (vitamin D3) 50 mcg (2,000 unit) capsule 50 mcg PO DAILY Time of Disposition: 23:24
--- OUTSIDE RECORDS SUMMARY | 2025-05-06 19:33 | XMS_ITS | Clinical Summary ---
Author Organization [facility] Address [address] [place] [address] Care Team Providers Care Certified Optician Name Role Phone Liliana Olivier RN Unavailable [phone] Christopher Hopkins MD Unavailable [phone] Jose Lopez MD Primary Care Provider [phone] Allergies Active Allergy Reactions Criticality Noted Date [...] (06/02/2022): Added automatically from request for surgery [id number] Type 1 diabetes mellitus 11/08/2016 Assessment & [...] violated. Assessment & Plan (08/05/2019 4:49 PM SAFE DEPOSIT ATTENDANT): Glucose control is fair to good. It [...] to 1:5. He can continue care at [facility] and return to discuss pump upgrades. Degree [...] benefits. Assessment & Plan (08/05/2019 4:50 PM SAFE DEPOSIT ATTENDANT): Foot care is critical. Please check your [...] increased. Assessment & Plan (08/05/2019 4:52 PM SAFE DEPOSIT ATTENDANT): BP is way too high. Pt is unclear about scheduled doses of lisinopril and metoprolol. I recommend taking 10 mg of lisinopril (he may be taking 1/2 of a pill) and doubling the metoprolol. He has an appointment with [facility] physicians, will recheck BP. 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 Dx) from Last 3 Months Immunizations Immunization Administration Dates Next Due COVID-19 mRNA (Digital Air Strike) 0.3 m L (30 mcg) vaccine (12 [...] on file Legal Sex Male 1:23 AM SAFE DEPOSIT ATTENDANT Gender Identity Male 08/27/2021 3:27 PM SAFE DEPOSIT ATTENDANT Sexual Orientation Straight 08/27/2021 3: 27 PM SAFE DEPOSIT ATTENDANT Obstetrics History Last Filed Vital Signs Vital [...] diabetes mellitus with nephropathy (HCC) POCT GLUCOSE [id number] Routine 03/17/2025 8: 37 AM CDT 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) LIPID PANEL Routine 08/01/2024 8:49 AM SAFE DEPOSIT ATTENDANT Mixed hyperlipidemia ALBUMIN CREATININE RATIO, URINE Routine 08/01/2024 8:49 AM SAFE DEPOSIT ATTENDANT 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 Current interpretive data was last revised 2019. Creatinine Ur 113.6 mg/dL [facility] Comment: Interpretive Data No reference range established. Current interpretive data was last revised 2019. Albumin Creatinine Ratio, Ur <11 1 - 29 mg/g [facility] Urine 08/01/2024 8:49 AM SAFE DEPOSIT ATTENDANT 08/01/2024 6:13 PM SAFE DEPOSIT ATTENDANT Jose Lopez MD LAB URINE ORDERABLES Final Re sult [facility] [address] Department [place] [address] * Lipid panel (08/01/2024 8:49 AM SAFE DEPOSIT ATTENDANT) Cholesterol 101 30 - 199 mg/dL Comment: [...] revised on 2018. Triglycerides 82 <=149 mg/dL [facility] Comment: Interpretive Data Ages < or = [...] last revised on 2018. Chol/HDL ratio 2 [facility] Blood 08/01/2024 8:49 AM SAFE DEPOSIT ATTENDANT 08/01/2024 6:13 PM SAFE DEPOSIT ATTENDANT Jose Lopez MD LAB BLOOD ORDERABLES Final Re sult Performing Organization Address [facility] [employer] de Phone Number [facility] [address] [facility] [employer] [place] [address] * Thyroid Function [place] (01/01/2024 8:57 AM CDT) TSH 3.35 0.30 - 4.20 mcIUnit/mL Blood 01/01/2024 8:57 AM CDT 01/01/2024 2:17 PM CDT Jose Lopez MD LAB BLOOD ORDERABLES Final Re sult Performing Organization Address [facility] de Phone Number [facility] [id number] [address] [facility] [employer] [place] [address] * Colonoscopy (08/22/2023) Anatomical Region Laterality Modality Other Result [facility] Provider ENDOSCOPY PROCEDURES Madai l Result * PSA screen (06/06/2022 9:29 AM CDT) PSA-Total 0.75 <=5.40 ng/mL [facility] Comment: Interpretive Data AGE SEX REFERENCE INTERVAL [...] 06/06/2022 4:25 PM CDT Jannette Yannawilly Rhodes BOBBIN CLEANER LAB BLOOD ORDERABLES Fi nal Result [facility] [address] Department [place] [address] * eGFR (10/20/2021 8:45 AM SAFE DEPOSIT ATTENDANT) eGFR 46 mL/min/1. 73 m2 [facility] [...] last reviewed 2021. Blood 10/20/2021 8:45 AM SAFE DEPOSIT ATTENDANT 10/20/2021 3:10 PM SAFE DEPOSIT ATTENDANT Marquis You DO LAB BLOOD ORDERABLES Final Resul t [facility] [address] Department [place] [address] from Last 3 Months or Most Recently Relevant to Health Maintenance Insurance MEDICARE COMMERCIAL GENERIC [facility] OFFICE [facility] [place] [address] MEDICARE COMMERCIAL GENERIC MEDICARE COMMERCIAL GENERIC Care Teams Certified Optician Relationship Specialty Start Date End Date Jose Lopez MD [address] [facility] [address] [address] PCP - General Family Medicine 03/23/23 Liliana Olivier, HUEY Medical Billing Specialist 03/19/20 Christopher Hopkins MD Surgeon Orthopedic Surgery 06/30/22
--- OUTSIDE RECORDS SUMMARY | 2025-05-06 19:33 | XMS_ITS | Encounter Summary ---
Author Organization [facility] Healthcare Address [address] [place] [address] Care Team Providers Care Front End Wheel Loader Operator Name Role Phone Liliana Olivier RN Unavailable Christopher Hopkins MD Unavailable [phone] Jose Lopez MD Primary Care Provider [phone] Reason for Visit * Reason Onset Date Comments orientation cardio rehab 05/06/2025 Encounter Details Date Type Department Care Team (Late st Contact Info) Description 05/06/2025 Telephone [facility] Family Medicine at [address] [place] [address] Jose Lopez MD [address] [place] [id number] orientation cardio rehab Social History Tobacco [...] on file Legal Sex Male 1:23 AM RECEIVING WEIGHER Gender Identity Male 08/27/2021 3:27 PM RECEIVING WEIGHER Sexual Orientation Straight 08/27/2021 3: 27 PM RECEIVING WEIGHER documented as of this encounter Miscellaneous Notes * Telephone Encounter - Velvet Pino Ma, MA - 05/06/2025 4:18 PM CDT Tsering with [facility] Cardiopulmonary Rehab called stating patient showed V tach a few times today at his orientation. HR 120's, BP 110/60 and 100/60 during episodes. Patient did not become unstable. [facility] Lopez patient should go to ER. Tsering and patient aware. Patient verbalized understanding. [phone]. documented in this encounter Plan of Treatment Not on file documented as of this encounter Visit Diagnoses Not on filedocumented in this encounter Care Teams Front End Wheel Loader Operator Relationship Specialty Start Date End Date Jose Lopez MD [address] [facility] [address] [address] PCP - General Family Medicine 03/23/23 Liliana Olivier, RN Residential Mortgage Manager 03/19/20 Christopher Hopkins MD Surgeon Orthopedic Surgery 06/30/22 documented as of this encounter
--- OUTSIDE RECORDS SUMMARY | 2025-05-06 19:33 | XMS_ITS | Encounter Summary ---
Author Organization [facility] Healthcare Address [address] [place] [address] Care Team Providers Care Client Reporting Associate Name Role Phone Liliana Olivier RN Unavailable [phone] Christopher Hopkins MD Unavailable [phone] Jose Lopez MD Primary Care Provider [phone] Encounter Details Date Type Department Care Team (Late st Contact Info) Description 05/21/2024 Orders Only [facility] Health Information Management [address] [place] [id number] Jose Lopez MD [facility] [address] [address] Social History Tobacco Use Types Packs/Day Years [...] on file Legal 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 Gender Identity Male 08/27/2021 3:27 PM 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 Sexual Orientation Straight 08/27/2021 3: 27 PM 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 documented as of this encounter Plan of Treatment Not on file documented as of this encounter Procedures Procedure Name Priority Date/Time Associated Diagnosis Comments CARDIOLOGY DOCUMENT SCAN 05/21/2024 documented in this encounter Results * Cardiology Document Scan (05/21/2024) Anatomical Region Laterality Modality Other Joes Lopez MD CV CARDIAC SERVICES PROCEDURE S Final Result documented in this encounter Visit Diagnoses Not on filedocumented in this encounter Care Teams Client Reporting Associate Relationship Specialty Start Date End Date Jose Lopez MD [address] [facility] [address] [address] PCP - General Family Medicine 03/23/23 Liliana Olivier, RN Author'S Agent 03/19/20 Christopher Hopkins MD Surgeon Orthopedic Surgery 06/30/22 documented as of this encounter
--- OUTSIDE RECORDS SUMMARY | 2025-05-06 19:35 | XMS_ITS ---
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 Retransplant Diagnosis Organ Primary Contributory Kidney Diabetes Mellitus - Type I Donor Information Organ ABO Source Meets Risk Criteria HLA Match Mismatches Cross Match Left Kidney Transplanted A DCD No A: B: DR: T cell (Negative) T cell (Negative) B cell (Negative) B cell (Negative) T cell (Negative) Left Kidney Donor Serology Results Anti-CMV CMV IgG: Positive EBV IgG EBV VCA IgG: Positive Anti-HBcAb HBC Total: Negative HBsAg HBsAg: Negative HBV DNA No results on file Anti-HCV HCV: Negative Anti-HIV I/II No results on file Anti-HTLV I/II HTLV: Not Done RPR/VDRL RPR: Negative EBV IgM EBV VCA IgM: Negative HBsAb No results on file EBNA No results on file SARS CoV-2 No results on file Care Team Name Role Phone Fax Email Liliana Olivier RN Kidney Coordinator [phone] N/A N/A Liliana Olivier telephonerSpecial Education Resource Room Teacher [phone] N/A N/A Tigist Aguirre Primary Dental Assistant Teacher N/A N/A N/A Lou Brown Mellowing Machine Operator [phone] N/A N/A Vera Mcnulty RN Secondary Coordinator Secondary Kidney Coordinator [phone] N/A N/A Events Post-Transplant Pre-Transplant Admitted: 03/29/2012 Referred: 05/16/2008 Transplanted: 03/29/2012 Evaluation began: 8 Discharged: 04/03/2012 Center waitlisted: 8
[2025-05-06 20:19] LABS: Hematocrit 38.6 % (42.0-52.0); Hemoglobin 13.0 g/dL (14.0-18.0); Immature Granulocyte Percent A 0.3 % (0-0.5); Lymphocytes Absolute Auto 1.20 K/mm3 (0.9-3.2); Mean Corpuscular HGB Conc 33.7 g/dl (32-36); Mean Corpuscular Hemoglobin 30.2 pg (26-34); Mean Corpuscular Volume 89.6 fl (80-100); Nucleated Red Blood Cells Absolute Auto 0.000 K/mm3 (0.0-0.012); Nucleated Red Blood Cells Perc 0.0 % (0.0-0.2); Platelet Count Result 161 k/mm3 (150-375); Red Blood Count 4.31 M/mm3 (4.6-6.20); White Blood Count 6.3 K/mm3 (4.5-10.0)
[2025-05-06 20:29] LABS: INR 1.3; Prothrombin Time 15.8 Seconds (11.1-14.7)
[2025-05-06 20:30] LABS: Partial Thromboplastin Time 25.8 Seconds (22.3-36.8)
[2025-05-06 20:31] LABS: Alanine Aminotransferase 27 U/L (6-50); Albumin Level 4.0 g/dL (3.5-5.1); Alkaline Phosphatase 78 U/L (38-126); Anion Gap 7 mmol/L (4-12); Aspartate Amino Transferase 24 U/L (17-59); Bilirubin,Total 1.3 mg/dL (0.2-1.3); Blood Urea Nitrogen 39 mg/dL (9-20); Calcium 9.3 mg/dL (8.4-10.2); Carbon Dioxide 21 mmol/L (22-30); Chloride 107 mmol/L (98-107); Estimated CRCL calculation 39 ml/min; Estimated Glomerular Filt Rate 39; Glucose 169 mg/dL (65-110); Lipase 12 U/L (23-300); Magnesium 1.9 mg/dL (1.6-2.3); Potassium 5.5 mmol/L (3.4-5.0); Sodium 135 mmol/L (137-145); Total Protein 6.6 g/dL (6.3-8.2)
[2025-05-06 20:42] LABS: NT Pro B Type Natriuretic Pept 774 pg/mL (19.9-100); Troponin I < 0.012 ng/mL (0.000-0.034)
[2025-05-06] MEDS: INSULIN HUMAN REGULAR (*BKC) 100 UNITS/ML 10 UNITS IV PUSH (23:34)
[2025-05-06] MEDS: DEXTROSE 50% 25 GM/50 ML SYRINGE IV PUSH (23:35)
[2025-05-06] MEDS: CALCIUM GLUCONATE 1,000 MG/10 ML VIAL 1000 MG IV PUSH (23:35)
[2025-05-07] VITALS (10 sets, daily range): BP systolic 104–147; BP diastolic 32–92; PULSE 59–72; RESP 18–20; TEMP 36.3–36.6; O2SAT 97–99; BMI 27.8
--- NOTE | 2025-05-07 01:04 | ADMIMU ---
This patient, Jc Charles, was admitted to IMU status, and placed in IMU Room 206-01. Patient/family oriented to hospital policies and general routines including ID bracelet, bed and alarms, visiting hours, pain management, procedures, bathroom and other care routines, personal items, smoking policy, room service/diet, and visiting hours. Valuables list has been completed. Information on how to activate the Rapid Response Team has been discussed. Patient is encouraged to report perceived risks to care and to ask questions if they do not understand what they are told or what they should do.
[2025-05-07 06:49] LABS: Hematocrit 35.6 % (42.0-52.0); Hemoglobin 11.9 g/dL (14.0-18.0); Immature Granulocyte Percent A 0.4 % (0-0.5); Lymphocytes Absolute Auto 1.34 K/mm3 (0.9-3.2); Mean Corpuscular HGB Conc 33.4 g/dl (32-36); Mean Corpuscular Hemoglobin 30.5 pg (26-34); Mean Corpuscular Volume 91.3 fl (80-100); Nucleated Red Blood Cells Absolute Auto 0.000 K/mm3 (0.0-0.012); Nucleated Red Blood Cells Perc 0.0 % (0.0-0.2); Platelet Count Result 130 k/mm3 (150-375); Red Blood Count 3.90 M/mm3 (4.6-6.20); White Blood Count 5.6 K/mm3 (4.5-10.0)
[2025-05-07 07:12] LABS: Alanine Aminotransferase 21 U/L (6-50); Albumin Level 3.2 g/dL (3.5-5.1); Alkaline Phosphatase 76 U/L (38-126); Anion Gap 9 mmol/L (4-12); Aspartate Amino Transferase 17 U/L (17-59); Bilirubin,Total 1.4 mg/dL (0.2-1.3); Blood Urea Nitrogen 40 mg/dL (9-20); Calcium 9.0 mg/dL (8.4-10.2); Carbon Dioxide 17 mmol/L (22-30); Chloride 107 mmol/L (98-107); Estimated CRCL calculation 39 ml/min; Estimated Glomerular Filt Rate 39; Glucose 235 mg/dL (65-110); Magnesium 1.7 mg/dL (1.6-2.3); Potassium 5.8 mmol/L (3.4-5.0); Sodium 133 mmol/L (137-145); Total Protein 5.4 g/dL (6.3-8.2)
[2025-05-07 07:40] LABS: Hemoglobin A1C 7.5 % (<5.7)
--- NOTE | 2025-05-07 08:20 | PM.IMHP ---
H&P: HPI History of Present Illness Date/Time: 05/07/25 08:20 Chief Complaint: Cardiac Arrhythmia Narrative: This is a very pleasant male pt with PMH of Pulmonary artery HTN, HLD, GERD, T1DM, BPH, CHF, Presence of pacemaker, and who is status post renal transplant presented to the ER from Cardiac rehab where he had a run of V-tach while on an elliptical. Pt denies any symptoms of dyspnea, palpitations, CP. He was encouraged to come to the ER for evaluation. Pt sees Cardiology at the [facility] as well as EP. In the ER workup was performed and findings were significant of an elevated Potassium of 5.5, presumed impaired renal function with Cr/BUN of 1.75/40 without a noted baseline, EKG showed a paced rhythm at 60 bpm but the pacer interrogation showed that pt did have a run of V-tach. CXR was concerning for appearance of a subtle mild kink in the course of the ventricular lead of a dual-lead cardiac pacemaker of indeterminate significance. A conversation was had between our ER team and the Cardiology provider at the [facility] and they will be reaching out to EP today, and in the meantime the pt was admitted here observation pending development of plan for treatment. Our Car Jockey is agreeable to consult in the meantime. Pt's Potassium in ER of 5.5 was treated with Sodium Bicarb, Insulin and Dextrose. This AM the pt's Potassium is elevated further at 5.8. Awaiting Cardiology consult this AM. 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, unspecified eye Screening for colon cancer Surgical History Surgical History Kidney transplant recipient Family History Family History Mother Hypertension Sibling Family history of diabetes mellitus in first degree relative Father Family history of lung cancer Social History Social History Smoking status: Never smoker Second hand tobacco smoke exposure: No Alcohol intake: current Drinks per week: 1 Alcohol use details: 1 beer a year Substance use: never Substance use type: does not use Lack of Transportation: No Lack of Food: Never True Current Housing: I Have Housing Concerned About Future Housing: No Difficulty Paying Gas/Electric Bills: No Difficulty Paying for Meds: No Currently Unemployed: No Education: Associate Degree Difficulty w/ Childcare or Family Care: No Spiritual care concerns: No Meds Home Medications and Allergies Home Medications ?Medication ?Instructions ?Recorded ?Confirmed ?Type lisinopril 40 mg tablet 40 mg PO DAILY 10/16/20 05/06/25 History melatonin 10 mg tablet 10 mg PO HS PRN Sleep 10/16/20 05/06/25 History prednisone 5 mg tablet 5 mg PO DAILY 10/16/20 05/06/25 History tacrolimus 1 mg capsule, 1 mg PO Q12H 10/16/20 05/06/25 History immediate-release (Prograf) tamsulosin 0.4 mg capsule 0.4 mg PO DAILY 10/16/20 05/06/25 History apixaban 2.5 mg tablet (Eliquis) 2.5 mg PO BID 04/29/21 05/06/25 History cholecalciferol (vitamin D3) 50 50 mcg PO DAILY 04/29/21 05/06/25 History mcg (2,000 unit) capsule sodium bicarbonate 650 mg tablet 650 mg PO DAILY PRN stomach upset 10/25/21 05/06/25 History amlodipine besylate 10 mg PO DAILY HIGH BLOOD PRESSURE 05/07/25 05/07/25 History atorvastatin 20 mg tablet (Lipitor) 10 mg PO HS FOR HIGH CHOLESTOROL 05/07/25 05/07/25 History metoprolol tartrate 100 mg tablet 100 mg PO BID 05/07/25 05/07/25 History omeprazole 40 mg capsule,delayed 40 mg PO BID HEART OR BLOOD 05/07/25 05/07/25 History release PRESSURE simethicone 80 mg chewable tablet 80 mg PO QID PRN GAS DISCOMFORT 05/07/25 05/07/25 History (Gas Relief (simethicone)) Allergies Allergy/AdvReac Type Severity Reaction Status Date / Time morphine Allergy Unknown Itching Verified 05/06/25 17:04 clarithromycin (From Biaxin) AdvReac Intermediate Nausea Verified 05/06/25 17:04 Vital Signs Vital Signs - 24 hr 05/06/25 16:58 05/06/25 18:03 05/06/25 18:05 Temperature 97.6 F Pulse Rate 69 88 62 Respiratory Rate 16 13 16 Blood Pressure 137/34 L 138/57 L Pulse Oximetry 99 97 100 Oxygen Delivery Room Air 05/06/25 18:15 05/06/25 18:15 05/06/25 18:16 Temperature Pulse Rate 60 60 60 Respiratory Rate 15 20 14 Blood Pressure 131/53 L 131/53 L Pulse Oximetry 98 98 98 Oxygen Delivery 05/06/25 18:30 05/06/25 18:31 05/06/25 18:45 Temperature Pulse Rate 60 61 62 Respiratory Rate 16 19 19 Blood Pressure 131/35 L 135/55 L Pulse Oximetry 98 97 98 Oxygen Delivery 05/06/25 18:45 05/06/25 18:46 05/06/25 19:00 Temperature Pulse Rate 60 60 60 Respiratory Rate 18 16 13 Blood Pressure 135/55 L Pulse Oximetry 98 98 100 Oxygen Delivery 05/06/25 19:01 05/06/25 19:15 05/06/25 19:30 Temperature Pulse Rate 60 60 80 Respiratory Rate 15 17 10 L Blood Pressure 136/50 L Pulse Oximetry 99 98 99 Oxygen Delivery 05/06/25 19:45 05/06/25 19:45 05/06/25 19:46 Temperature Pulse Rate 68 69 60 Respiratory Rate 18 15 13 Blood Pressure 131/49 L 131/49 L Pulse Oximetry 94 99 99 Oxygen Delivery 05/06/25 20:00 05/06/25 20:15 05/06/25 20:30 Temperature Pulse Rate 60 60 72 Respiratory Rate 13 20 16 Blood Pressure 110/45 L Pulse Oximetry 100 99 99 Oxygen Delivery 05/06/25 20:30 05/06/25 20:32 05/06/25 20:45 Temperature Pulse Rate 60 66 64 Respiratory Rate 17 15 12 Blood Pressure 110/45 L Pulse Oximetry 96 97 97 Oxygen Delivery 05/06/25 21:00 05/06/25 21:15 05/06/25 21:15 Temperature Pulse Rate 60 62 60 Respiratory Rate 17 14 15 Blood Pressure 139/50 L Pulse Oximetry 99 100 99 Oxygen Delivery 05/06/25 21:16 05/06/25 21:30 05/06/25 21:45 Temperature Pulse Rate 60 60 60 Respiratory Rate 16 17 14 Blood Pressure 139/50 L Pulse Oximetry 99 98 97 Oxygen Delivery 05/06/25 22:00 05/06/25 22:01 05/06/25 22:15 Temperature Pulse Rate 60 75 60 Respiratory Rate 19 21 H 18 Blood Pressure 141/118 H Pulse Oximetry 99 99 99 Oxygen Delivery 05/06/25 22:26 05/06/25 22:30 05/06/25 22:31 Temperature Pulse Rate 61 74 61 Respiratory Rate 15 18 13 Blood Pressure 136/123 H 135/61 Pulse Oximetry 99 97 97 Oxygen Delivery 05/06/25 22:32 05/06/25 22:45 05/06/25 22:46 Temperature Pulse Rate 66 60 67 Respiratory Rate 15 14 16 Blood Pressure 135/61 126/58 L Pulse Oximetry 99 98 99 Oxygen Delivery 05/06/25 23:00 05/06/25 23:15 05/06/25 23:30 Temperature Pulse Rate 64 60 60 Respiratory Rate 17 22 H 13 Blood Pressure Pulse Oximetry 97 99 100 Oxygen Delivery 05/06/25 23:31 05/07/25 00:40 05/07/25 02:00 Temperature 97.4 F L Pulse Rate 61 68 60 Respiratory Rate 20 20 Blood Pressure 137/46 L 141/92 H Pulse Oximetry 98 99 Oxygen Delivery 05/07/25 03:56 05/07/25 04:00 05/07/25 06:00 Temperature 97.5 F L Pulse Rate 60 60 66 Respiratory Rate 20 Blood Pressure 147/47 H Pulse Oximetry 98 Oxygen Delivery 05/07/25 07:55 Temperature 97.9 F Pulse Rate 59 L Respiratory Rate 18 Blood Pressure 124/32 L Pulse Oximetry 97 Oxygen Delivery Exam Const: General: comfortable and no acute distress HENMT: Face/Nose/Sinus: Normal nares present Mouth: Yes moist mucous membranes Eyes: General: appearance normal, both eyes and all related structures Sclera: sclerae normal Pupils: Equal, round and reactive pupils present EOM: EOMs intact bilaterally Neck: Neck: supple and no JVD Thyroid: thyroid normal Lymphatic: lymphadenopathy not noted Resp: Effort & Inspection: normal respiratory effort Auscultation: clear to auscultation bilaterally Cardio: Rate: regular rate Rhythm: regular rhythm Heart sounds: no gallops, no murmurs and no rubs GI: GI Palp: Yes Soft to palpation and No Tenderness to palpation present (GI) Auscultation: normal bowel sounds Skin: General skin exam: normal color, no rashes or lesions noted and no erythema Lesions: no lesions noted Rashes: no rashes noted Wounds: no wounds Neuro: Speech: normal speech Motor exam (neuro): 5/5 motor strength present throughout and Normal motor muscle tone present throughout Sensory Exam: normal sensation Extrem: General: normal to inspection, no edema and no pedal edema Other: Freely and equally MAEW without deficit Psych: Mental Status: mental status grossly normal Affect: normal affect H&P: Results Labs Labs: Short CBC 05/06/25 05/07/25 Range/Units 20:14 06:42 WBC 6.3 5.6 (4.5-10.0) K/mm3 Hgb 13.0 L 11.9 L (14.0-18.0) g/dL Hct 38.6 L 35.6 L (42.0-52.0) % Plt Count 161 130 L (150-375) k/mm3 BMP 05/06/25 05/07/25 20:14 06:42 Sodium 135 L 133 L Potassium 5.5 H 5.8 H Chloride 107 107 Carbon Dioxide 21 L 17 L BUN 39 H 40 H Creatinine 1.74 H 1.75 H Glucose 169 H 235 H Calcium 9.3 9.0 Cardiac Enzymes 05/06/25 Range/Units 20:14 Troponin I < 0.012 (0.000-0.034) ng/mL Liver Function 05/06/25 05/07/25 Range/Units 20:14 06:42 Total Bilirubin 1.3 1.4 H (0.2-1.3) mg/dL AST 24 17 (17-59) U/L ALT 27 21 (6-50) U/L Alkaline Phosphatase 78 76 (38-126) U/L Albumin 4.0 3.2 L (3.5-5.1) g/dL Assessment and Plan Assessment and plan (1) Ventricular tachycardia (paroxysmal): Code(s): I47.20 - Ventricular tachycardia, unspecified Status: Acute Assessment and Plan: As evidenced by interrogation of pacemaker. Cardiology has consulted and they are comfortable with discharge to follow up with his PCP and Car Jockey at the [facility]. Continue Telemetry (2) S/P cardiac pacemaker procedure: Code(s): Z95.0 - Presence of cardiac pacemaker Status: Acute Assessment and Plan: CXR with concern for potential kink in a ventricular lead. Concern for potential cause of run of V-tach ?? No concern on the part of Cardiology regarding the abnormal appearance of leads. They recommend follow up with the pt's pension consultant at the [facility] (3) Acute hyperkalemia: Code(s): E87.5 - Hyperkalemia Status: Resolved Assessment and Plan: Potassium this AM is 5.8. Lokelma 10 mg po once given, Calcium Gluconate given, Regular insulin 10 units, Dextrose 25 G given and Lasix 40 mg IVP x1 given as well as an extra dose of Bicarb and one hour long Albuterol neb. Post check of Potassium is normal at 4.4. (4) Essential (primary) hypertension: Code(s): I10 - Essential (primary) hypertension Status: Chronic Assessment and Plan: Current BP stable. Continue home meds of Amlodipine 10 mg daily, Metoprolol Tartrate 100 mg Q12 hrs (5) Mixed hyperlipidemia: Code(s): E78.2 - Mixed hyperlipidemia Status: Chronic Assessment and Plan: Continue statin therapy. 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 (7) Renal transplant recipient: Code(s): Z94.0 - Kidney transplant status Status: Chronic Assessment and Plan: Continue Prednisone and Tacrolimus. Monitor Renal function. Quality VTE Prophylaxis VTE prophylaxis: pharmacologic ordered Hospitalist [facility] Advance Care Plan I have confirmed that the patient's Advanced Care Plan is present, code status is documented, or surrogate decision maker is listed in patient medical record.: Yes Medication Reconciliation I have utilized all available resources to obtain, update and review the patients current medications (includes all prescriptions, OTC, herbals, cannabis, and nutritional supplements).: Yes
[2025-05-07] MEDS: FUROSEMIDE INJ 40 MG/4 ML VIAL IV PUSH (08:26)
[2025-05-07] MEDS: SODIUM BICARBONATE 8.4% 50 MEQ/50 ML SYRINGE IV PUSH (08:28)
[2025-05-07] MEDS: INSULIN HUMAN REGULAR (*BKC) 100 UNITS/ML 10 UNITS IV PUSH (08:32)
[2025-05-07] MEDS: ALBUTEROL SULFATE NEB 2.5 MG/3 ML INH 10 MG INHALATION (08:34)
[2025-05-07] MEDS: DEXTROSE 50% 25 GM/50 ML SYRINGE IV PUSH (08:34)
--- NOTE | 2025-05-07 09:14 | WPDCARDPROC ---
Cardiac Cath Procedure Note Date of procedure:: 05/07/25 Performing physician:: Pa Salomon MD Indication:: Ventricular tachycardia Brief clinical history:: This is a 70-year-old man who I am seeing at the request of the hospitalist because of ventricular arrhythmias. He is unknown to me prior to this but he is a very good historian regarding his medical condition. He was that a cardiac rehab session here at [facility] actually just getting his orientation. Rehab says was ordered by his physicians at the [facility] because of pulmonary hypertension. He states that he was found to have pulmonary hypertension within the last 1-2 years and has undergone evaluation at the [facility] including catheterization last year which demonstrated no evidence of coronary disease and good left ventricular systolic function. He had a follow-up echocardiogram done at the [facility] a couple of months ago which he said was basically stable. He does not have any exertional symptoms such as chest pain or a palpitations he has never had a syncopal event. He states that he has a pacemaker that was implanted previously because of Rupert arrhythmias. The record of that is unknown to me. The pacemaker device is a [employer] device which is functioning normally according to interrogation yesterday and has about a year left until the need for a generator change. I believe it was implanted in 2018. This is also followed at the [facility]. he was found to be hyperkalemic when he came into the hospital with a potassium level of 5.8. He says that he also has diabetes and diabetic nephropathy.
--- NOTE | 2025-05-07 09:18 | PM.CNCAR ---
Assessment and Plan Assessment and plan (1) Ventricular tachycardia (paroxysmal): Code(s): I47.20 - Ventricular tachycardia, unspecified Status: Acute (2) S/P cardiac pacemaker procedure: Code(s): Z95.0 - Presence of cardiac pacemaker Status: Acute Plan 70-year-old man with pulmonary hypertension and a chronically implanted pacemaker followed at the [facility]. Asymptomatic nonsustained ventricular tachycardia was noted yesterday in cardiac rehab and he was then sent to the emergency room and admitted to the hospital. He has a pacemaker device that was implanted in 2018 because of Rupert arrhythmias the details of this are unknown to me and are not of great importance at this time. He is a good historian and indicates that he is known not to have any coronary disease and have good left ventricular systolic function. These arrhythmias therefore probably right ventricular in origin since he has established diagnosis of pulmonary hypertension. Beta-christian for this should be recommended and he is already taking a high dose of metoprolol. His cardiovascular workup has been fully completed at the [facility] he does not require any additional evaluation at [facility] in my opinion. We should have him consult with dietitian to review potassium rich foods since he does come in hyperkalemic and is not on a potassium supplement. I believe he follows with the transplant service at [facility] regarding his renal graft. Pa Salomon MD [facility] History of Present Illness History of Present Illness Consult date/time: 05/07/25 09:18 Reason For Visit: Arrhythmia Narrative: This is a 70-year-old man unknown to me I am seeing at the request of the hospitalist because of ventricular arrhythmias. The patient is unknown to me again but is a reasonably good historian regarding his medical problems. He was admitted to the hospital yesterday after being seen in cardiac rehab here at [place] as he says he was just getting oriented to be started on rehab for a pulmonary hypertension. He has an established diagnosis of pulmonary hypertension and follows with physicians at the [facility]. He says that he has a pacemaker device that was implanted at the [facility] in 2018 for Rupert arrhythmia of some sort. He does not know the details of this. His device is functioning normally and has about 1 year until anticipated need for a generator change. He says he was found to have pulmonary hypertension between the last 1-2 years. He has undergone a thorough evaluation by his physicians at the [facility] including a right left heart catheterization last year. He was told that he did not have any coronary disease of significance he, his left ventricular function was normal and that his pulmonary hypertension would be followed in the their clinic. He does take metoprolol tartrate 100 mg b.i.d. S1 of his medical regimen. He is also a renal transplant recipient and I believe is followed at [facility] for that. He has a history of diabetic nephropathy. 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 He has never had a syncopal event. According to interrogation his pacemaker device is functioning normally. His 12 lead electrocardiogram in the hospital here shows an atrially paced rhythm. Of note his lab data on admission here shows that he is hyperkalemic with a potassium of 5.8. He is not on a potassium supplement. Review of Systems Constitutional: Constitutional: Reports fatigue and Reports lethargy Eyes: Eyes: Reports no additional eye complaints ENT: Reports system reviewed and no additional complaints, except as documented Cardiovascular: Cardiovascular: Reports no additional cardiovascular complaints Respiratory: Respiratory: Reports dyspnea on exertion Gastrointestinal: Gastrointestinal: Reports no additional gastrointestinal complaints Genitourinary: Genitourinary: Reports no additional male genitourinary complaints Musculoskeletal: Musculoskeletal: Reports no additional musculoskeletal complaints Integumentary/Breasts: Skin/Breast: Reports system reviewed and no additional complaints, except as docu Neurologic: Reports system reviewed and no additional complaints, except as documented Endocrine: Endocrine: Reports no additional endocrine complaints Hematologic/Lymphatic: Hematologic/Lymphatic: Reports no additional hematologic/lymphatic complaints Allergic/Immunologic: Allergic/Immunologic: Reports no additional allergic/immunologic complaints [facility] Past Medical History Medical History 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, unspecified eye Screening for colon cancer Surgical History Surgical History Kidney transplant recipient Family History Family History Mother Hypertension Sibling Family history of diabetes mellitus in first degree relative Father Family history of lung cancer Social History Social History Smoking status: Never smoker Second hand tobacco smoke exposure: No Alcohol intake: current Drinks per week: 1 Alcohol use details: 1 beer a year Substance use: never Substance use type: does not use Lack of Transportation: No Lack of Food: Never True Current Housing: I Have Housing Concerned About Future Housing: No Difficulty Paying Gas/Electric Bills: No Difficulty Paying for Meds: No Currently Unemployed: No Education: Associate Degree Difficulty w/ Childcare or Family Care: No Spiritual care concerns: No Meds Home Medications and Allergies Home Medications ?Medication ?Instructions ?Recorded ?Confirmed ?Type lisinopril 40 mg tablet 40 mg PO DAILY 10/16/20 05/06/25 History melatonin 10 mg tablet 10 mg PO HS PRN Sleep 10/16/20 05/06/25 History prednisone 5 mg tablet 5 mg PO DAILY 10/16/20 05/06/25 History tacrolimus 1 mg capsule, 1 mg PO Q12H 10/16/20 05/06/25 History immediate-release (Prograf) tamsulosin 0.4 mg capsule 0.4 mg PO DAILY 10/16/20 05/06/25 History apixaban 2.5 mg tablet (Eliquis) 2.5 mg PO BID 04/29/21 05/06/25 History cholecalciferol (vitamin D3) 50 50 mcg PO DAILY 04/29/21 05/06/25 History mcg (2,000 unit) capsule sodium bicarbonate 650 mg tablet 650 mg PO DAILY PRN stomach upset 10/25/21 05/06/25 History amlodipine besylate 10 mg PO DAILY HIGH BLOOD PRESSURE 05/07/25 05/07/25 History atorvastatin 20 mg tablet (Lipitor) 10 mg PO HS FOR HIGH CHOLESTOROL 05/07/25 05/07/25 History metoprolol tartrate 100 mg tablet 100 mg PO BID 05/07/25 05/07/25 History omeprazole 40 mg capsule,delayed 40 mg PO BID HEART OR BLOOD 05/07/25 05/07/25 History release PRESSURE simethicone 80 mg chewable tablet 80 mg PO QID PRN GAS DISCOMFORT 05/07/25 05/07/25 History (Gas Relief (simethicone)) Allergies Allergy/AdvReac Type Severity Reaction Status Date / Time morphine Allergy Unknown Itching Verified 05/06/25 17:04 clarithromycin (From Biaxin) AdvReac Intermediate Nausea Verified 05/06/25 17:04 Vital Signs Vital Signs - 24 hr 05/06/25 16:58 05/06/25 18:03 05/06/25 18:05 Temperature 36.4 C Pulse Rate 69 88 62 Respiratory Rate 16 13 16 Blood Pressure 137/34 L 138/57 L Pulse Oximetry 99 97 100 Oxygen Delivery Room Air 05/06/25 18:15 05/06/25 18:15 05/06/25 18:16 Temperature Pulse Rate 60 60 60 Respiratory Rate 15 20 14 Blood Pressure 131/53 L 131/53 L Pulse Oximetry 98 98 98 Oxygen Delivery 05/06/25 18:30 05/06/25 18:31 05/06/25 18:45 Temperature Pulse Rate 60 61 62 Respiratory Rate 16 19 19 Blood Pressure 131/35 L 135/55 L Pulse Oximetry 98 97 98 Oxygen Delivery 05/06/25 18:45 05/06/25 18:46 05/06/25 19:00 Temperature Pulse Rate 60 60 60 Respiratory Rate 18 16 13 Blood Pressure 135/55 L Pulse Oximetry 98 98 100 Oxygen Delivery 05/06/25 19:01 05/06/25 19:15 05/06/25 19:30 Temperature Pulse Rate 60 60 80 Respiratory Rate 15 17 10 L Blood Pressure 136/50 L Pulse Oximetry 99 98 99 Oxygen Delivery 05/06/25 19:45 05/06/25 19:45 05/06/25 19:46 Temperature Pulse Rate 68 69 60 Respiratory Rate 18 15 13 Blood Pressure 131/49 L 131/49 L Pulse Oximetry 94 99 99 Oxygen Delivery 05/06/25 20:00 05/06/25 20:15 05/06/25 20:30 Temperature Pulse Rate 60 60 72 Respiratory Rate 13 20 16 Blood Pressure 110/45 L Pulse Oximetry 100 99 99 Oxygen Delivery 05/06/25 20:30 05/06/25 20:32 05/06/25 20:45 Temperature Pulse Rate 60 66 64 Respiratory Rate 17 15 12 Blood Pressure 110/45 L Pulse Oximetry 96 97 97 Oxygen Delivery 05/06/25 21:00 05/06/25 21:15 05/06/25 21:15 Temperature Pulse Rate 60 62 60 Respiratory Rate 17 14 15 Blood Pressure 139/50 L Pulse Oximetry 99 100 99 Oxygen Delivery 05/06/25 21:16 05/06/25 21:30 05/06/25 21:45 Temperature Pulse Rate 60 60 60 Respiratory Rate 16 17 14 Blood Pressure 139/50 L Pulse Oximetry 99 98 97 Oxygen Delivery 05/06/25 22:00 05/06/25 22:01 05/06/25 22:15 Temperature Pulse Rate 60 75 60 Respiratory Rate 19 21 H 18 Blood Pressure 141/118 H Pulse Oximetry 99 99 99 Oxygen Delivery 05/06/25 22:26 05/06/25 22:30 05/06/25 22:31 Temperature Pulse Rate 61 74 61 Respiratory Rate 15 18 13 Blood Pressure 136/123 H 135/61 Pulse Oximetry 99 97 97 Oxygen Delivery 05/06/25 22:32 05/06/25 22:45 05/06/25 22:46 Temperature Pulse Rate 66 60 67 Respiratory Rate 15 14 16 Blood Pressure 135/61 126/58 L Pulse Oximetry 99 98 99 Oxygen Delivery 05/06/25 23:00 05/06/25 23:15 05/06/25 23:30 Temperature Pulse Rate 64 60 60 Respiratory Rate 17 22 H 13 Blood Pressure Pulse Oximetry 97 99 100 Oxygen Delivery 05/06/25 23:31 05/07/25 00:40 05/07/25 02:00 Temperature 36.3 C L Pulse Rate 61 68 60 Respiratory Rate 20 20 Blood Pressure 137/46 L 141/92 H Pulse Oximetry 98 99 Oxygen Delivery 05/07/25 03:56 05/07/25 04:00 05/07/25 06:00 Temperature 36.4 C L Pulse Rate 60 60 66 Respiratory Rate 20 Blood Pressure 147/47 H Pulse Oximetry 98 Oxygen Delivery 05/07/25 07:55 Temperature 36.6 C Pulse Rate 59 L Respiratory Rate 18 Blood Pressure 124/32 L Pulse Oximetry 97 Oxygen Delivery Exam Const: Other: Well-developed well-nourished white male appearing his stated age does not appear to be in any distress and seems to be in good spirits HENMT: Mouth: Yes moist mucous membranes Eyes: Sclera: sclerae normal Pupils: Equal, round and reactive pupils present Neck: Neck: supple and no JVD Resp: Effort & Inspection: normal respiratory effort Auscultation: clear to auscultation bilaterally Other: Good air exchange no wheezing no rales no rhonchi Cardio: Rate: regular rate Rhythm: regular rhythm GI: GI Palp: Yes Soft to palpation Auscultation: normal bowel sounds Skin: General skin exam: normal color Neuro: Other: Alert and oriented x3 Extrem: General: normal to inspection Results Labs and Meds 05/07/25 06:42 05/07/25 06:42 Lab results: Cardiac Enzymes 05/06/25 05/07/25 Range/Units 20:14 06:42 AST 24 17 (17-59) U/L Troponin I < 0.012 (0.000-0.034) ng/mL Coagulation 05/06/25 Range/Units 20:14 PT 15.8 H (11.1-14.7) Seconds APTT 25.8 (22.3-36.8) Seconds CBC 05/06/25 05/07/25 Range/Units 20:14 06:42 WBC 6.3 5.6 (4.5-10.0) K/mm3 RBC 4.31 L 3.90 L (4.6-6.20) M/mm3 Hgb 13.0 L 11.9 L (14.0-18.0) g/dL Hct 38.6 L 35.6 L (42.0-52.0) % Plt Count 161 130 L (150-375) k/mm3 Lymph # (Auto) 1.20 1.34 (0.9-3.2) K/mm3 Forrest # (Auto) 0.5 0.5 (0.1-0.6) K/mm3 Eos # (Auto) 0.2 0.2 (0-0.3) K/mm3 Baso # (Auto) 0.1 0.1 (0.0-0.1) K/mm3 Comprehensive Metabolic Panel 05/06/25 05/07/25 Range/Units 20:14 06:42 Sodium 135 L 133 L (137-145) mmol/L Potassium 5.5 H 5.8 H (3.4-5.0) mmol/L Chloride 107 107 (98-107) mmol/L Carbon Dioxide 21 L 17 L (22-30) mmol/L BUN 39 H 40 H (9-20) mg/dL Creatinine 1.74 H 1.75 H (0.7-1.3) mg/dL Glucose 169 H 235 H (65-110) mg/dL Calcium 9.3 9.0 (8.4-10.2) mg/dL AST 24 17 (17-59) U/L ALT 27 21 (6-50) U/L Alkaline Phosphatase 78 76 (38-126) U/L Total Protein 6.6 5.4 L (6.3-8.2) g/dL Albumin 4.0 3.2 L (3.5-5.1) g/dL Intake and Output 05/06/25 05/07/25 05/07/25 23:59 07:59 15:59 Intake Total 222 240 Balance 222 240 Intake: Oral 222 240 Other: # Unmeasured Voids 1 Patient Weight 05/07/25 23:59 Weight 96.6 kg
[2025-05-07] MEDS: SODIUM BICARBONATE TAB 650 MG TABLET 1300 MG PO (09:44)
[2025-05-07] MEDS: SODIUM ZIRCONIUM CYCLOSILICATE 10 GM POWD.PACK PO (09:44)
[2025-05-07] MEDS: PANTOPRAZOLE 40 MG TABLET PO (09:45)
[2025-05-07] MEDS: METOPROLOL TARTRATE 50 MG TAB 100 MG PO (09:45)
[2025-05-07] MEDS: CHOLECALCIFEROL (VITAMIN D3) 25 MCG (1,000 UNITS) TABLET 50 MCG PO (09:45)
[2025-05-07] MEDS: APIXABAN 2.5 MG TABLET PO (09:45)
[2025-05-07] MEDS: TACROLIMUS 0.5 MG CAPSULE 1 MG PO (09:46)
[2025-05-07] MEDS: INSULIN ASPART (*BKC) 100 UNITS/ML SUB-Q (09:57)
[2025-05-07 11:06] LABS: Potassium 4.4 mmol/L (3.4-5.0)
--- NOTE | 2025-05-07 11:25 | P.DS_ITS ---
DS: Admitting Diagnosis Discharge Date 05/07/25 Admitting Diagnosis Cardiac Arrhythmia, Hyperkalemia DS: Discharge Diagnosis Discharge Diagnosis (1) Ventricular tachycardia (paroxysmal): Code(s): I47.20 - Ventricular tachycardia, unspecified Status: Acute Assessment and Plan: * As evidenced by interrogation of pacemaker. * Cardiology has consulted and they are comfortable with discharge to follow up with his PCP and Seed District Sales Manager at the [facility]. * Continue Telemetry (2) S/P cardiac pacemaker procedure: Code(s): Z95.0 - Presence of cardiac pacemaker Status: Acute Assessment and Plan: * CXR with concern for potential kink in a ventricular lead. * Concern for potential cause of run of V-tach ?? * No concern on the part of Cardiology regarding the abnormal appearance of leads. They recommend follow up with the pt's yard loader operator at the [facility]. * Conitnue Telemetry (3) Acute hyperkalemia: Code(s): E87.5 - Hyperkalemia Status: Resolved Assessment and Plan: * Potassium this AM is 5.8. * Lokelma 10 mg po once given, Calcium Gluconate given, Regular insulin 10 units, Dextrose 25 G given and Lasix 40 mg IVP x1 given as well as an extra dose of Bicarb and one hour long Albuterol neb. * Post check of Potassium is normal at 4.4. (4) Essential (primary) hypertension: Code(s): I10 - Essential (primary) hypertension Status: Chronic Assessment and Plan: * Current BP stable. * Continue home meds of Amlodipine 10 mg daily, Metoprolol Tartrate 100 mg Q12 hrs (5) Mixed hyperlipidemia: Code(s): E78.2 - Mixed hyperlipidemia Status: Chronic Assessment and Plan: * Continue statin therapy. 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 (7) Renal transplant recipient: Code(s): Z94.0 - Kidney transplant status Status: Chronic Assessment and Plan: * Continue Prednisone and Tacrolimus. * Monitor Renal function. DS: Summary Hospital Course Reason for hospitalization: Elevated Potassium and NSVT. Hospital Course: This is a very pleasant male pt with PMH of Pulmonary artery HTN, HLD, GERD, T1DM, BPH, CHF, Presence of pacemaker, and who is status post renal transplant presented to the ER from Cardiac rehab last evening ,where he had a run of V- tach while on an elliptical. Pt denied any symptoms of dyspnea, palpitations, CP. He was encouraged to come to the ER for evaluation. Pt sees Cardiology at the [facility] as well as EP. In the ER workup was performed and findings were significant of an elevated Potassium of 5.5, presumed impaired renal function with Cr/BUN of 1.75/40 without a noted baseline, EKG showed a paced rhythm at 60 bpm but the pacer int errogation showed that pt did have a run of V-tach. CXR was concerning for appearance of a subtle mild kink in the course of the ventricular lead of a dual-lead cardiac pacemaker of indeterminate significance. A conversation was had between our ER team and the Cardiology provider at the [facility] and they will be reaching out to EP today, and in the meantime the pt was admitted here observation pending development of plan for treatment. Our Seed District Sales Manager is agreeable to consult in the meantime. Pt's Potassium in ER of 5.5 was treated with Sodium Bicarb, Insulin and Dextrose. This AM the pt's Potassium is elevated further at 5.8. Pt received a cocktail of Lokelma, albuterol, Regular insulin, D50, Sodium Bicarb, and Lasix with return of potassium level to 4.4. Cardiology consulted on pt and has deemed him stable for discharge and to follow up with his own Seed District Sales Manager at the [facility]. Status at Discharge Cognitive/behavioral status at discharge: At baseline Functional status at discharge: independent ambulation Overall status at discharge: patient is back to baseline Time Spent with Patient Time attestation: Total time spent providing and/or coordinating discharge services: Time spent: Greater than 30 minutes Specific discharge activities: Follow up, return to ER precautions Exam Const: General: comfortable and no acute distress HENMT: Face/Nose/Sinus: Normal nares present Mouth: Yes moist mucous membranes Eyes: General: appearance normal, both eyes and all related structures Sclera: sclerae normal Pupils: Equal, round and reactive pupils present EOM: EOMs intact bilaterally Neck: Neck: supple and no JVD Thyroid: thyroid normal Lymphatic: lymphadenopathy not noted Resp: Effort & Inspection: normal respiratory effort Auscultation: clear to auscultation bilaterally Cardio: Rate: regular rate Rhythm: regular rhythm Heart sounds: no gallops, no murmurs and no rubs GI: Auscultation: normal bowel sounds Skin: General skin exam: normal color, no rashes or lesions noted, no erythema, No lesion and No rashes Lesions: no lesions noted Rashes: no rashes noted Wounds: no wounds Neuro: Cranial nerves: Yes Equal, round and reactive pupils present Speech: normal speech Motor exam (neuro): 5/5 motor strength present throughout and N ormal motor muscle tone present throughout Sensory Exam: normal sensation Extrem: General: normal to inspection, no edema and no pedal edema Other: Freely and equally MAEW without deficit Psych: Mental Status: mental status grossly normal Affect: normal affect DS: Data Data Completed and Pending Completed studies during hospitalization: ITS Impressions Chest X-Ray 05/06/25 20:02 IMPRESSION: 1. Mild linear discoid atelectasis/scarring at the right lung base. No acute cardiopulmonary disease. 2. Subtle mild kink in the course of the ventricular lead of a dual-lead cardiac pacemaker of indeterminate significance. Labs on day of discharge: Labs from last 24 hours 05/07/25 05/07/25 05/07/25 10:33 09:54 07:00 WBC RBC Hgb Hct MCV MCH MCHC RDW Plt Count MPV Immature Gran % (Auto) Neut % (Auto) Lymph % (Auto) [place] % (Auto) Eos % (Auto) Baso % (Auto) Lymph # (Auto) [place] # (Auto) Eos # (Auto) Baso # (Auto) Abs Immat Gran (auto) Absolute Neuts (auto) Absolute Nucleated RBC Nucleated RBC % PT INR APTT Sodium Potassium 4.4 Chloride Carbon Dioxide Anion Gap BUN Creatinine Estim Creat Clear Calc Estimated GFR Glucose POC Capillary Glucose 221 H 236 H Hemoglobin A1c Calcium Phosphorus Magnesium Total Bilirubin AST ALT Alkaline Phosphatase Troponin I NT-Pro-B Natriuret Pep Total Protein Albumin Lipase 05/07/25 05/06/25 05/06/25 06:42 23:31 20:14 WBC 5.6 6.3 RBC 3.90 L 4.31 L Hgb 11.9 L 13.0 L Hct 35.6 L 38.6 L MCV 91.3 89.6 MCH 30.5 30.2 MCHC 33.4 33.7 RDW 13.2 13.2 Plt Count 130 L 161 MPV 9.4 9.2 Immature Gran % (Auto) 0.4 0.3 Neut % (Auto) 61.4 69.9 Lymph % (Auto) 24.1 19.0 [place]lin % (Auto) 9.0 H 7.3 Eos % (Auto) 4.0 2.4 Baso % (Auto) 1.1 1.1 Lymph # (Auto) 1.34 1.20 [place] # (Auto) 0.5 0.5 Eos # (Auto) 0.2 0.2 Baso # (Auto) 0.1 0.1 Abs Immat Gran (auto) 0.02 0.02 Absolute Neuts (auto) 3.4 4.4 Absolute Nucleated RBC 0.000 0.000 Nucleated RBC % 0.0 0.0 PT 15.8 H INR 1.3 APTT 25.8 Sodium 133 L 135 L Potassium 5.8 H 5.5 H Chloride 107 107 Carbon Dioxide 17 L 21 L Anion Gap 9 7 BUN 40 H 39 H Creatinine 1.75 H 1.74 H Estim Creat Clear Calc 39 39 Estimated GFR 39 L 39 L Glucose 235 H 169 H POC Capillary Glucose 164 H Hemoglobin A1c 7.5 H Calcium 9.0 9.3 Phosphorus 4.2 Magnesium 1.7 1.9 Total Bilirubin 1.4 H 1.3 AST 17 24 ALT 21 27 Alkaline Phosphatase 76 78 Troponin I < 0.012 NT-Pro-B Natriuret Pep 774 H Total Protein 5.4 L 6.6 Albumin 3.2 L 4.0 Lipase 12 L Discharge Plan Discharge Attending physician on discharge: Garth Fritz Consulting providers: Reuben Barkley; Rosa Salvador Discharging Clinician: Rosa Salvador Anticipated Discharge Date/Time: 05/07/25 11:31 Patient Disposition: Home Activity: as tolerated Diet: diabetic Discharge Instructions: Thank you for allowing us to evaluate you. You have been consulted on by Cardiology and they ask that you follow up with your PCP and your Seed District Sales Manager from the [facility] for further workup/evaluation and treatment as necessary. If at any point you have recurrence of symptoms or any new symptoms or SOB, return to the ER. Patient Instructions: Apixaban (By mouth), Heart Failure (GEN) Patient Language: Spanish Stand Alone Forms: General Discharge Information Follow-up/Referrals: John,Jose Kirkpatrick MD [Primary Care Provider, Unknown] Discharge Medications: New sodium bicarbonate 650 mg tablet 650 mg PO BID Qty: 60 0RF Continued prednisone 5 mg Tablet 5 mg PO DAILY tacrolimus [Prograf] 1 mg Capsule 1 mg PO Q12H tamsulosin 0.4 mg Capsule 0.4 mg PO DAILY Patient Comments: 2 caps at night lisinopril 40 mg Tablet 40 mg PO DAILY melatonin 10 mg Tablet 10 mg PO HS PRN (Reason: Sleep) Eliquis 2.5 mg tablet 2.5 mg PO BID cholecalciferol (vitamin D3) 50 mcg (2,000 unit) capsule 50 mcg PO DAILY metoprolol tartrate 100 mg tablet 100 mg PO BID amlodipine besylate 10 mg tablet 10 mg PO DAILY atorvastatin [Lipitor] 20 mg tablet 10 mg PO HS simethicone [Gas Relief (simethicone)] 80 mg tablet,chewable 80 mg PO QID PRN (Reason: GAS DISCOMFORT) omeprazole 40 mg capsule,delayed release(DR/EC) 40 mg PO BID Discontinued sodium bicarbonate 650 mg tablet 650 mg PO DAILY PRN (Reason: stomach upset) Patient Comments: taking 2 tablets BID Date of admission: 05/06/25 23:04 Primary Care Provider: John,Jose Kirkpatrick Admitting Provider: Mario Hoyos Attending physician on admission: Mario Hoyos Condition: Improved Quality VTE Prophylaxis VTE prophylaxis: pharmacologic ordered Hospitalist MIPS Heart Failure (Exclusion) Patient has history of Heart Transplant or Left Ventricular Assistive Device?: Yes IF YES, STOP HERE Heart Failure (Qualifier) Patient has current or prior documentation of LVEF less than or equal to 40%, or mod/servere depressed LVSF?: No IF NO, STOP HERE
== END 2025-05-07 12:35 | disposition home or self-care (01) ==
LOC: ANHED 19:27 → ANHIMU 23:25
PROVIDERS: Nurse Practitioner; Nurse Practitioner Adult Health; Admitting Provider Internal Medicine; Emergency Provider Emergency Medicine; PCP Family Medicine; Visit Provider Internal Medicine
DX: I47.20 Ventricular tachycardia, unspecified (principal); E87.5 Hyperkalemia; I49.9 Cardiac arrhythmia, unspecified; E78.2 Mixed hyperlipidemia; E10.3519 Type 1 diabetes mellitus with proliferative diabetic retinopathy with macular edema, unspecified eye; Z79.4 Long term (current) use of insulin; Z95.0 Presence of cardiac pacemaker; Z94.0 Kidney transplant status; I50.9 Heart failure, unspecified; I11.0 Hypertensive heart disease with heart failure; Z79.621 Long term (current) use of calcineurin inhibitor; Z79.01 Long term (current) use of anticoagulants; Z79.52 Long term (current) use of systemic steroids; Z82.49 Family history of ischemic heart disease and other diseases of the circulatory system; Z83.3 Family history of diabetes mellitus; Z80.1 Family history of malignant neoplasm of trachea, bronchus and lung
CPT/HCPCS: 36415; 71045; 80053; 80069; 82948; 83036; 83690; 83735; 83880; 84132; 84484; 85025; 85610; 85730; 93005; 96374; 96375; 96376; 99285; A9270; G0378; J0612; J1815; J1938; J7512

== ENCOUNTER 2025-07-28 13:45 | Outpatient (RCR) | payer SELFPAY | END 2025-07-29 14:26 | disposition home or self-care (01) | LOC: ANHCPREHAB 13:45 | PROVIDERS: PCP Family Medicine; Visit Provider Family Medicine | DX: I50.89 Other heart failure (principal) | CPT/HCPCS: 99199 ==

== ENCOUNTER 2025-07-29 09:28 | Outpatient (CLI) | payer OTHER, SELFPAY ==
--- NOTE | ~2025-07-29 | DEXA_ITS ---
Bone Density Report Name: DAT GANNON Age: 70 Sex: Male Ethnicity: White Date of : 1955 Indication: screening for osteoporosis; prior fracture; end stage renal disease; Referring Provider: RODNEY CHAN Study: Bone densitometry was performed. Exam Date: July 29, 2025 Accession number: [id number] Bone Density: Region BMD T-score Z-score Classification AP Spine(L1-L4) 1.067 -0.2 0.7 Normal Femoral Neck (Left) 0.855 -0.6 0.7 Normal Total Hip (Left) 0.911 -0.8 -0.1 Normal Femoral Neck (Right) 0.742 -1.4 -0.2 Osteopenia Total Hip (Right) 0.855 -1.2 -0.5 Osteopenia Total Hip Mean 0.883 -1.0 -0.3 Normal World Health Organization criteria for BMD impression classify patients as: Normal (T-score at or above -1.0), Osteopenia (T-score between -1.0 and -2.5), or Osteoporosis (T-score at or below -2.5). 10-year Fracture Risk(1): Major Osteoporotic Fracture 9.4% Hip Fracture 1.9% Reported Risk Factors: [place] (), Neck BMD=0.742, BMI=30.1, previous fracture (1) FRAX(R) Version 3.08. Fracture probability calculated for an untreated patient. Fracture probability may be lower if the patient has received treatment. Clinical Information Provided by Patient: Has had a low trauma fracture Has used the following medications: Vitamin D Has the following medical conditions: End stage renal disease Patient maximum height was 72 No regular weight bearing exercise Does not regularly consume dairy products Impression: The patient has low bone mass, based on the Right Femoral Neck T-score. The patient has an estimated ten-year risk of hip fracture of 1.9% and an estimated ten-year risk of major fracture of 9.4%, based on the WHO FRAX algorithm. The patient has risk factors, including: previous fracture. Discussion: BONE DENSITY IS LOW AT ONE OR MORE SKELETAL SITES. This patient's lowest T-score is low at one or more skeletal sites. It meets the World Health Organization's (WHO) criteria for ?low bone mass? (T-score between -1.0 and -2.5). The patient's 10-year risk of fracture as calculated by FRAX is less than the threshold where pharmacological therapy is recommended by the National Osteoporosis Foundation (NOF). However, all treatment decisions require clinical judgment and consideration of individual patient factors, including patient preferences, comorbidities, previous drug use, risk factors not captured in the FRAX model (e.g., frailty, falls, vitamin D deficiency, increased bone turnover, interval significant decline in bone density) and possible under or overestimation of fracture risk by FRAX. The patient should follow a healthful lifestyle (good nutrition with adequate calcium and vitamin D, and appropriate weight-bearing exercise). Follow-Up: Consider repeating this study in 2 to 3 years to reassess this patient's status, or sooner if there is some new clinical indication. Reported by: DENNYS on 07/29/2025 10:01:00 AM. Reviewed, dictated and finalized at location A.
== END 2025-07-29 09:29 | disposition home or self-care (01) ==
PROVIDERS: PCP Family Medicine
DX: M85.89 Other specified disorders of bone density and structure, multiple sites (principal); Z13.820 Encounter for screening for osteoporosis
CPT/HCPCS: 77080